=== PATIENT | female | born 1935 | race Caucasian/White ===

== ENCOUNTER → 2017-07-23 07:51 | Outpatient (CLI) | payer MEDICARE, OTHER, BC, SELFPAY ==
[2016-06-23 10:21] VITALS: BMI 39.4
== END ==
PROVIDERS: Family Provider Internal Medicine; PCP Internal Medicine; Visit Provider Internal Medicine Cardiovascular Disease
DX: I25.119 Atherosclerotic heart disease of native coronary artery with unspecified angina pectoris (principal); I47.2 Ventricular tachycardia; I25.2 Old myocardial infarction; I10 Essential (primary) hypertension; E78.5 Hyperlipidemia, unspecified; E11.9 Type 2 diabetes mellitus without complications; Z95.5 Presence of coronary angioplasty implant and graft
CPT/HCPCS: 93017; 93350; Q9957; A4216; C8928

== ENCOUNTER → 2017-08-29 07:25 | Outpatient (CLI) | payer MEDICARE, OTHER, BC, SELFPAY ==
[2016-06-23 10:21] VITALS: BMI 39.4
[2017-08-29 09:21] LABS: AST(SGOT) 13 U/L (15-37); Alanine Aminotransfer ALT/SGPT 18 U/L (13-56); Albumin, Serum 3.4 g/dL (3.2-5.0); Alkaline Phosphatase 65 U/L (45-117); Bilirubin, Direct 0.15 mg/dL (0.00-0.30); Cholesterol 99 mg/dL (200); High Density Lipoprotein 38 mg/dL; Protein, Total 7.4 g/dL (6.4-8.2); Triglycerides 173 mg/dL; Very Low Density Lipoprotein 35 mg/dL (5-40)
== END ==
PROVIDERS: Family Provider Internal Medicine; PCP Internal Medicine; Visit Provider Internal Medicine Cardiovascular Disease
DX: I25.10 Atherosclerotic heart disease of native coronary artery without angina pectoris (principal); E78.5 Hyperlipidemia, unspecified; E11.9 Type 2 diabetes mellitus without complications
CPT/HCPCS: 36415; 80061; 80076

== ENCOUNTER → 2018-07-25 | Outpatient (CLI) | payer MEDICARE, BC, SELFPAY ==
[2016-06-23 10:21] VITALS: BMI 39.4
[2018-07-08 13:33] VITALS: BMI 38.6
--- NOTE | 2018-07-25 09:46 | ECHOD_ITS ---
Reason For Study: DYSPNEA/SOB Procedure This was a 2D Doppler, Color Flow transthoracic echocardiogram. The study was technically difficult. Due to body habitus. Exam performed in department. Left Ventricle Mild concentric left ventricular hypertrophy. The estimated ejection fraction is 75 %. Stage 1 diastolic dysfunction. No regional wall motion abnormalities noted. Right Ventricle Mildly dilated right ventricle. Normal systolic function. Atria The left atrium is mildly enlarged. Normal right atrium. Normal atrial septum. Mitral Valve Mild diffuse mitral valve thickening. Moderate mitral annular calcification extending into the posterior leaflet. Tricuspid Valve Normal tricuspid valve. Trivial tricuspid valve insufficiency. Right ventricular systolic pressure estimated to be 38 mmHg. Mild pulmonary hypertension. Aortic Valve Trisinus/trileaflet aortic valve. Mild diffuse aortic valve thickening. Trivial aortic valve insufficiency. Pulmonic Valve Normal pulmonic valve. Trivial pulmonic valve insufficiency. Great Vessels Normal aortic root. Normal arch. Normal inferior vena cava. Inferior vena cava collapse with sniff. Pericardium/Pleural No pericardial effusion. MMode/2D Measurements & Calculations LVIDd: 4.3 cm IVSd: 1.3 cm LVOT diam: 2.0 cm LVIDs: 2.4 cm LVPWd: 1.2 cm LVOT area: 3.2 cm2 RVDd: 3.6 cm FS: 45.2 % Ao root diam: 3.0 cm LAV(MOD-bp): 56.4 ml LA A4 area: 20.7 cm2 LAV(MOD-bp) Indexed: 31.2 ml/m2 LAV(MOD-sp2): 50.3 ml LAV(MOD-sp4): 60.1 ml LA dimension(2D): 4.0 cm RA A4 area: 16.0 cm2 Time Measurements MV dec time: 0.25 sec Doppler Measurements & Calculations MV E max parth: 119.8 cm/sec Lat Peak E' Parth: 3.4 cm/sec Med Peak E' Parth: 3.8 cm/sec MV A max parth: 125.9 cm/sec E/E' lat: 35.0 E/E' med: 31.5 MV E/A: 0.95 Ao V2 max: 193.0 cm/sec AI max parth: 395.4 cm/sec LV V1 max: 103.8 cm/sec Ao max P.9 mmHg AI max P.7 mmHg LV V1 max P.3 mmHg Ao V2 mean: 120.7 cm/sec AI dec slope: 290.0 cm/sec2 LV V1 mean P.0 mmHg Ao mean P.7 mmHg AI P1/2t: 399.3 msec LV V1 mean: 67.6 cm/sec Ao V2 VTI: 42.8 cm LV V1 VTI: 22.9 cm NATHANIEL(I,D): 1.7 cm2 NATHANIEL(V,D): 1.7 cm2 SV(LVOT): 73.4 ml PA V2 max: 118.5 cm/sec TR max parth: 267.5 cm/sec TR max P.1 mmHg Interpretation Summary Mild concentric left ventricular hypertrophy. The estimated ejection fraction is 75 %. Stage 1 diastolic dysfunction. The left atrium is mildly enlarged. Trivial tricuspid valve insufficiency. Right ventricular systolic pressure estimated to be 38 mmHg. Mild pulmonary hypertension. Trivial aortic valve insufficiency. Compared to echo report dated 06/23/2016, no appreciable changes noted. Ordering Physician: Oscar Araujo Referring Physician: Eitan Price Performed By: Lolita Pimentel, BARTOLOME, RVT
== END | disposition home or self-care (01) ==
LOC: CVS 09:45
PROVIDERS: Family Provider Internal Medicine; PCP Internal Medicine; Referring Provider Internal Medicine Cardiovascular Disease; Visit Provider Internal Medicine Cardiovascular Disease
DX: I25.10 Atherosclerotic heart disease of native coronary artery without angina pectoris (principal)
CPT/HCPCS: 93306

== ENCOUNTER → 2018-07-31 09:02 | Outpatient (CLI) | payer MEDICARE, BC, SELFPAY ==
[2016-06-23 10:21] VITALS: BMI 39.4
[2018-07-08 13:33] VITALS: BMI 38.6
--- NOTE | 2018-07-31 09:03 | STEWCON_ITS ---
Reason For Study: DYSPNEA/SOB Stress Results Protocol: Stress Echocardiogram Maximum Predicted HR: 138 bpm Target HR: 117 bpm % Maximum Predicted HR: 89 % DurationHeart Rate Stage (mm:ss) (bpm) BP Comment BASELINE 58 160/74DILUTED DEFINITY 2 CC USED CHRISTOS PROTOCOL- STAGE 1 3:00 100 172/90SOB, NO CP CHRISTOS PROTOCOL- STAGE 2 0:54 123 / EXTREME SOB, NO CP RECOVERY 62 144/80SOB RESOLVED Stress Duration: 3:54 mm:ss Maximum Stress HR: 123 bpm Baseline Echocardiogram Findings The estimated ejection fraction is 65 %. Stress Echo Wall motion Data Resting WM Intermediate WM Stress WM Resting Wall Motion Wall Motion Stress No regional wall motion No regional wall motion abnormalities noted. abnormalities noted. EKG Data The baseline ECG displays normal sinus rhythm. The patient exercised according to the regular Christos protocol for a total duration of 3:54. The maximum heart rate attained was 123 beats per minute. This was 89% of maximum predicted heart rate. The patient exercised into stage 2 of the Christos protocol. During stress, there were no ST or T wave changes noted to suggest ischemia. No clinical angina was noted. Doppler Measurements & Calculations TR max edmundo: 303.4 cm/sec TR max P.0 mmHg Interpretation Summary The estimated ejection fraction is 65 %. Normal, adequate, treadmill echocardiogram. Negative for ischemia by EKG and echocardiographic criteria. No anginal symptoms noted. Rare PVC noted. Appropriate blood pressure response to exercise. Below average exercise capacity for age. Final LVEF is 75%. Decreased sensitivity due to poor echo windows requiring Definity agent. No complications. The study was technically difficult. Contrast injection was performed. Ordering Physician: Oscar Araujo MD Referring Physician: Oscar Araujo Performed By: Lolita Pimentel, RDCS, RVT
== END ==
PROVIDERS: Family Provider Internal Medicine; PCP Internal Medicine; Referring Provider Internal Medicine Cardiovascular Disease; Visit Provider Internal Medicine Cardiovascular Disease
DX: R06.02 Shortness of breath (principal); I25.119 Atherosclerotic heart disease of native coronary artery with unspecified angina pectoris; I47.2 Ventricular tachycardia; I10 Essential (primary) hypertension; Z95.5 Presence of coronary angioplasty implant and graft
CPT/HCPCS: 93017; 93350; Q9957; A4216; C8928

== ENCOUNTER → 2018-12-03 10:09 | Outpatient (CLI) | payer MEDICARE, BC, SELFPAY ==
[2016-06-23 10:21] VITALS: BMI 39.4
[2018-11-14 09:26] VITALS: BMI 38.7
[2018-12-03 11:15] LABS: AST(SGOT) 13 U/L (15-37); Alanine Aminotransfer ALT/SGPT 20 U/L (13-56); Albumin, Serum 3.2 g/dL (3.2-5.0); Alkaline Phosphatase 69 U/L (45-117); Bilirubin, Direct 0.15 mg/dL (0.00-0.30); Cholesterol 100 mg/dL (200); Globulin 3.9 g/dL (2.2-4.2); High Density Lipoprotein 37 mg/dL; Protein, Total 7.1 g/dL (6.4-8.2); Triglycerides 165 mg/dL; Very Low Density Lipoprotein 33 mg/dL (5-40)
== END ==
PROVIDERS: Family Provider Internal Medicine; PCP Internal Medicine; Referring Provider Internal Medicine Cardiovascular Disease; Visit Provider Internal Medicine Cardiovascular Disease
DX: E78.00 Pure hypercholesterolemia, unspecified (principal)
CPT/HCPCS: 36415; 80061; 80076

== ENCOUNTER → 2019-08-29 10:16 | Outpatient (CLI) | payer MEDICARE, BC, SELFPAY ==
[2016-06-23 10:21] VITALS: BMI 39.4
[2018-11-14 09:26] VITALS: BMI 38.7
--- NOTE | 2019-08-29 10:16 | ECHOD_ITS ---
Reason For Study: PHTN Procedure This was a 2D Doppler, Color Flow transthoracic echocardiogram. Exam performed in department. Left Ventricle Normal size and thickness. The estimated ejection fraction is 65 %. Stage 1 diastolic dysfunction. No regional wall motion abnormalities noted. Right Ventricle Normal size and thickness. Normal systolic function. Atria The left atrium is severely enlarged. Normal right atrium. Normal atrial septum. Mitral Valve Mild diffuse mitral valve thickening. Severe mitral annular calcification extending into the posterior leaflet. Mild (1+) eccentric mitral valve insufficiency. Tricuspid Valve Normal tricuspid valve. Mild (1+) tricuspid valve insufficiency. Right ventricular systolic pressure estimated to be 33 mmHg. Aortic Valve Trisinus/trileaflet aortic valve. Mild focal aortic valve thickening. Mild aortic stenosis. Trivial aortic valve insufficiency. Pulmonic Valve Normal pulmonic valve. Mild (1+) pulmonic valve insufficiency. Great Vessels Normal aortic root. Normal arch. Normal inferior vena cava. Inferior vena cava collapse with sniff. Pericardium/Pleural No pericardial effusion. MMode/2D Measurements & Calculations LVIDd: 4.1 cm IVSd: 1.3 cm LVOT diam: 2.0 cm LVIDs: 2.0 cm LVPWd: 1.2 cm LVOT area: 3.1 cm2 RVDd: 3.0 cm FS: 51.8 % Ao root diam: 3.1 cm LAV(MOD-bp): 81.5 ml LA A4 area: 26.9 cm2 LAV(MOD-bp) Indexed: 45.0 ml/m2 LAV(MOD-sp2): 67.3 ml LAV(MOD-sp4): 94.9 ml LA dimension(2D): 4.1 cm RA A4 area: 13.2 cm2 Doppler Measurements & Calculations MV E max parth: 103.6 cm/sec Lat Peak E' Parth: 4.5 cm/sec Med Peak E' Parth: 3.4 cm/sec MV A max parth: 126.3 cm/sec E/E' lat: 22.9 E/E' med: 30.2 MV E/A: 0.82 Ao V2 max: 194.0 cm/sec AI max parth: 462.0 cm/sec LV V1 max: 120.2 cm/sec Ao max P.1 mmHg AI max P.4 mmHg LV V1 max P.8 mmHg Ao V2 mean: 129.6 cm/sec AI dec slope: 263.8 cm/sec2 LV V1 mean P.9 mmHg Ao mean P.6 mmHg AI P1/2t: 513.0 msec LV V1 mean: 80.8 cm/sec Ao V2 VTI: 42.7 cm LV V1 VTI: 29.4 cm NATHANIEL(I,D): 2.1 cm2 NATHANIEL(V,D): 1.9 cm2 SV(LVOT): 89.7 ml PA V2 max: 113.5 cm/sec TR max parth: 254.3 cm/sec TR max P.0 mmHg Interpretation Summary The estimated ejection fraction is 65 %. Stage 1 diastolic dysfunction. The left atrium is severely enlarged. Mild (1+) eccentric mitral valve insufficiency. Mild (1+) tricuspid valve insufficiency. Right ventricular systolic pressure estimated to be 33 mmHg. Mild aortic stenosis. Trivial aortic valve insufficiency. Compared to echo report dated 07/25/2018, LV function has remained the same, RVSP has improved from 38 to 33 mmHg. Ordering Physician: Oscar Araujo Referring Physician: Eitan Price Performed By: Alaina Okeefe RDCS
== END ==
PROVIDERS: PCP Internal Medicine; Referring Provider Internal Medicine Cardiovascular Disease; Visit Provider Internal Medicine Cardiovascular Disease
DX: I27.20 Pulmonary hypertension, unspecified (principal); I25.10 Atherosclerotic heart disease of native coronary artery without angina pectoris
CPT/HCPCS: 93306

== ENCOUNTER → 2019-09-05 09:09 | Outpatient (CLI) | payer MEDICARE, BC, SELFPAY ==
[2016-06-23 10:21] VITALS: BMI 39.4
[2018-11-14 09:26] VITALS: BMI 38.7
--- NOTE | 2019-09-05 09:09 | STEWCON_ITS ---
Reason For Study: CAD/ASHD Stress Results Protocol: Stress Echocardiogram Maximum Predicted HR: 137 bpm Target HR: 116 bpm % Maximum Predicted HR: 97 % Heart Stage Duration Rate BP Comment (mm:ss) (bpm) 3 CC DILUTED DEFINITY USED, PT IN AFIB- DR ARAUJO BASELINE 75 134/80AWARE JEANNIE PROTOCOL- STAGE 1 3:00 133 140/80SEVERE DYSPNEA, FATIGUE, AFIB RECOVERY 82 124/80AFIB Stress Duration: 3:00 mm:ss Maximum Stress HR: 133 bpm Baseline Echocardiogram Findings The estimated ejection fraction is 65 %. Stress Echo Wall motion Data Resting WM Intermediate WM Stress WM Resting Wall Motion Wall Motion Stress No regional wall motion No regional wall motion abnormalities noted. abnormalities noted. EKG Data Atrial fibrillation with controlled ventricular response. The patient exercised according to the regular Jeannie protocol for a total duration of 3:13. The maximum heart rate attained was 133 beats per minute. This was 97% of maximum predicted heart rate. The patient exercised into stage 2 of the Jeannie protocol. During stress, there were no ST or T wave changes noted to suggest ischemia. No clinical angina was noted. Interpretation Summary The estimated ejection fraction is 65 %. Normal, adequate, treadmill echocardiogram. Negative for ischemia by EKG and echocardiographic anterior. No anginal symptoms noted. Baseline atrial fibrillation but no other arrhythmias noted. Appropriate blood pressure response to exercise. Test terminated due to the attainment of target heart rate and severe dyspnea. Below average exercise capacity for age. Patient tolerated procedure well. Poor echo windows requiring Definity agent making interpretation somewhat problematic. No complications. The study was technically difficult. Contrast injection was performed. Ordering Physician: Oscar Araujo Referring Physician: Oscar Araujo Performed By: Negin Cuevas RDCS
== END ==
PROVIDERS: PCP Internal Medicine; Referring Provider Internal Medicine Cardiovascular Disease; Visit Provider Internal Medicine Cardiovascular Disease
DX: I25.119 Atherosclerotic heart disease of native coronary artery with unspecified angina pectoris (principal); I47.2 Ventricular tachycardia; I25.2 Old myocardial infarction; E11.9 Type 2 diabetes mellitus without complications; Z95.5 Presence of coronary angioplasty implant and graft
CPT/HCPCS: 93017; 93350; Q9957; A4216; C8928

== ENCOUNTER 2019-09-19 06:39 | Day surgery (SDC) | payer MEDICARE, BC, SELFPAY ==
[2016-06-23 10:21] VITALS: BMI 39.4
[2018-11-14 09:26] VITALS: BMI 38.7
--- NOTE | 2019-09-09 08:54 | RAD_ITS ---
STUDY: X-RAY CHEST REASON FOR EXAM: Female, 83 years old. Abnormal stress test. Coronary artery disease. TECHNIQUE: Frontal and lateral views of the chest. COMPARISON: 06/22/2016. FINDINGS: The lungs are clear and expanded. There is no demonstrated pleural abnormality. Normal size heart. Normal mediastinum and rachel. Normal visualized pulmonary arteries. There is atherosclerotic calcification of the aortic arch with tortuosity. Small to moderate hiatal hernia. Normal visualized thoracic spine. Normal visualized ribs, clavicles, and shoulders. There is no demonstrated abnormality of the visualized soft tissue structures of the upper abdomen. RAD/Chest PA and Lateral IMPRESSION: No definite acute or significant abnormality seen. Electronically Signed: Fabian Adkins MD at 21:26 EDT , Service support ,
[2019-09-09 09:06] LABS: Hematocrit 39.2 % (37-47); Hemoglobin 12.5 g/dL (12.0-15.0); Mean Corp Hgb Conc 31.9 g/dL (32-36); Mean Corpuscular Hgb 27.7 pg (27.0-32.0); Mean Corpuscular Volume 86.7 fL (81-99); Mean Platelet Vol. 11.7 fl (6.2-12.0); Platelet Count 178 K/mm3 (150-450); RBC Distribution Width CV 15.4 % (11.6-14.6); RBC Distribution Width SD 48.1 fl (35.1-43.9); Red Blood Count 4.52 M/mm3 (4.2-5.4); White Blood Count 7.4 K/mm3 (4.4-11.0)
[2019-09-09 09:13] LABS: International Normalized Ratio 1.1; Prothrombin Time (Protime)PT. 13.4 SECONDS (11.7-14.9)
[2019-09-09 09:14] LABS: Partial Thromboplast Time 32.5 Seconds (24.1-36.2)
[2019-09-09 09:29] LABS: Anion Gap 5 (5-15); BUN 15 mg/dL (7-18); BUN/Creat Ratio 11.1 RATIO (10-20); Calcium,Total 8.9 mg/dL (8.5-10.1); Chloride 106 mmol/L (98-107); Creatinine, Serum 1.35 mg/dL (0.55-1.02); EST Glomerular Filtration Rate 40 mL/min (>60); Est Glom Filt Rate - Afr Amer 48 mL/min (>60); Glucose 122 mg/dL (74-106); Potassium 4.3 mmol/L (3.5-5.1); Sodium Level 140 mmol/L (136-145)
--- NOTE | 2019-09-11 04:32 | HP_ITS ---
HPI HPI History of Present Illness Surgical H&P: Yes Details: This is an 83-year-old female that presents here today for an updated history and physical for an abnormal stress test she is scheduled to have a heart catheterization done next week. This is scheduled for 09/19/2019. She has a history of coronary artery disease with stenting to her LAD in 2017. She also has a history of hypertension, hyperlipidemia and diabetes. After her heart catheterization in 2017 she did develop a hematoma and did require 1 unit of blood. She did not require any debridement. At her office visit earlier this month she commented on increased tiredness. She underwent a stress test and echocardiogram. Patient was noted to have significant shortness of breath with walking on the treadmill. Echocardiogram images did not demonstrate any ischemia however patient was noted to have a newly noted atrial fibrillation. She is scheduled to undergo a right and left heart catheterization next week. Pt sts that she has noted SOB with exertion and CP that radiates to her back/shoulder. She does notes that this has been going on for a few months. Prior to her stress test she thought that this was related to arthritis. This is different to what she had prior to her previous stent. She is not SOB at rest. She does not have any palpitations. She does have positional dizziness. This is with anytime that she bends over. She does not have any edema. Intake Vital Signs 09/11/19 Height 4 ft 11 in 09/11/19 Weight: 193 lb 09/11/19 BP 151/75 H 09/11/19 Blood Pressure Location Rt brachial 09/11/19 Position Sitting 09/11/19 Respiration 18 09/11/19 Pulse 54 L 09/11/19 Pulse Source Monitor 09/11/19 Pulse Oximetry (%) 96 Intake Visit Reasons: Update H & P/LM [employer] Required: No Is patient in pain?: No Allergies morphine Allergy (Mild, Verified 11/14/18 09:34) Hives Medications Aspirin [Aspirin, Baby] 81 mg PO QHS 06/22/16 [History Confirmed 09/11/19] Atorvastatin Calcium [Lipitor] 80 mg PO QHS 06/22/16 [History Confirmed 09/11/19] Cyanocobalamin (Vitamin B-12) [Vitamin B-12] 1,000 mcg PO DAILY 06/22/16 [History Confirmed 09/11/19] Metformin HCl 500 mg PO BID 06/22/16 [History Confirmed 09/11/19] Montelukast [Singulair] 10 mg PO QHS 06/22/16 [History Confirmed 09/11/19] Amlodipine [Norvasc] 5 mg PO DAILY #30 tab 07/06/16 [Rx Confirmed 09/11/19] Clopidogrel Bisulfate [Plavix] 75 mg PO DAILY #30 tab 07/06/16 [Rx Confirmed 09/11/19] carvedilol 25 mg tablet 25 mg PO BID 07/05/17 [History Confirmed 09/11/19] losartan 25 mg tablet 25 mg PO QDAY #90 tab 12/18/17 [Rx Confirmed 09/11/19] citalopram 40 mg tablet 20 mg PO DAILY 07/08/18 [History Confirmed 09/11/19] omega-3 fatty acids 1,000 mg capsule 1,000 mg PO TID cap 07/08/18 [History Confirmed 09/11/19] furosemide 40 mg tablet 40 mg PO DAILY 11/14/18 [History Confirmed 09/11/19] cefdinir 300 mg capsule 300 mg PO BID 09/11/19 [History Confirmed 09/11/19] [facility] Medical History New onset atrial fibrillation (Acute) Dyspnea on exertion (Acute) Atherosclerotic heart disease hoh coronary artery w/angina pectoris (Acute) Type 2 diabetes mellitus without complications (Chronic) Atherosclerotic heart disease of hoh coronary artery without angina pectoris (Chronic) Hypertension (Chronic) Nonsustained ventricular tachycardia (Chronic) Non-STEMI (non-ST elevated myocardial infarction) (Resolved) Hyperlipemia (Chronic) Asthma (Chronic) Depression (Chronic) GERD (gastroesophageal reflux disease) (Chronic) Hematoma of groin (Chronic) Hiatal hernia (Chronic) History of colon cancer (Chronic) Obesity (Chronic) Surgical History History of coronary artery stent placement (Chronic 06/23/16) History of (Chronic) History of cholecystectomy (Chronic ~2011) History of colectomy (Chronic ~04/2001) Family History Mother CAD (coronary artery disease) Father CAD (coronary artery disease) Brother CAD (coronary artery disease) Sister CAD (coronary artery disease) Social History (Updated 09/11/19 @ 16:32 by ROBBIE Ernst) Smoking Status: Never smoker alcohol intake: never substance use type: does not use caffeine: Yes Type: coffee Number of servings: 4 ROS Const Const: Positive for fatigue; negative for weakness, fever(s) or headache(s) Eyes Eyes: Negative for blind spots, loss of peripheral vision or transient loss of vision ENT ENT: Positive for dizziness; negative for headache(s), tinnitus or Nosebleed/epistaxis Cardio Chest Pain: Yes Palpitations: No Edema: None Muscle aches with walking: None Resp Respiratory: Positive for SOB with activity; negative for SOB at rest, SOB orthopnea\SOB lying down or Cough GI GI: Negative nausea, vomiting, heartburn or vomiting blood/hematemesis : Negative for hematuria Musc Musc: Negative for muscle aches/ myalgia Neuro Neuro: Positive for dizziness; negative for lightheadedness, near syncope, syncope, orthostatic symptoms, headache(s) or weakness Felice Hematologic/Lymphatic: Negative for easy bleeding Endo Endo: Positive for fatigue Cardiology Exam Const Appearance: cooperative, healthy appearing and no acute distress Nutritional Appearance: well nourished Orientation: alert, oriented x3 and oriented to person Head Head: normal to inspection, normocephalic and atraumatic Nose: external nose normal Face and Sinus: face symmetric Mouth: oral mucosae normal Eyes General: appearance normal, both eyes and all related structures Eyelids: eyelids normal Conjunctivae: conjunctivae normal Pupils: PERRL and normal by confrontation EOM: EOM intact bilaterally Neck Neck: normal visual inspection and full ROM Carotids: normal carotid upstroke Chest Chest inspection: normal inspection of the chest Auscultation: Bilateral: Clear to Auscultation Cardio Palpation: normal PMI Rate: regular rate Rhythm: regular rhythm Heart sounds: S1 normal, S2 normal and murmur Murmur: Grade 1/6, soft and mid systolic GI GI: normal to inspection, no hepatosplenomegaly and bowel sounds present Neuro General: alert, awake, oriented x3, CN's II-XI intact bilaterally and moves all extremities Skin Skin: no rashes or lesions noted Extremities Pulses: Normal: Right Femoral Pulse, Left Femoral Pulse, Right Dorsalis Pedis Pulse, Left Dorsalis Pedis Pulse, Right Posterior Tibial Pulse, Left Posterior Tibial Pulse, Right Radial Pulse, Left Radial Pulse Lower Extremity Edema: None: Bilateral Psych Psychological: normal affect Assessment & Plan 1. 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 Concerned that this could be an anginal equivalent, she did have a stress test that did not show any ischemia however it is again noted that she had significant dyspnea. We will proceed with a left and right heart catheterization. 2. New onset atrial fibrillation I48.91 Plan Patient does have newly noted atrial fibrillation. Currently she is not anticoagulated. Will need to rediscuss after her heart catheterization. If she is still in atrial fibrillation will consider cardioversion after she has been anticoagulated for 30 days. It is noted that patient does have severe left atrial enlargement. 3. Essential hypertension I10 4. Pure hypercholesterolemia E78.00 Plan Patient will continue with high intensity statin. Plan Detail Follow Up 09/11/19 (with me on 10/02 at 0900) Coding Level of Care Code Off vis,est,level 4 Diagnoses Atherosclerotic heart disease hoh coronary artery w/angina pectoris I25.119 New onset atrial fibrillation I48.91 Essential hypertension I10 ??Hypertension type: essential hypertension Pure hypercholesterolemia E78.00 ??Hyperlipidemia type: pure hypercholesterolemia Coding Level of Care Code Off vis,est,level 4 Diagnoses Atherosclerotic heart disease hoh coronary artery w/angina pectoris I25.119 New onset atrial fibrillation I48.91 Essential hypertension I10 ??Hypertension type: essential hypertension Pure hypercholesterolemia E78.00 ??Hyperlipidemia type: pure hypercholesterolemia Supplemental Info Supplemental Information Stress echo 08/2019: EKG Data Atrial fibrillation with controlled ventricular response. The patient exercised according to the regular Christos protocol for a total duration of 3:13. The maximum heart rate attained was 133 beats per minute. This was 97% of maximum predicted heart rate. The patient exercised into stage 2 of the Christos protocol. During stress, there were no ST or T wave changes noted to suggest ischemia. No clinical angina was noted. Interpretation Summary The estimated ejection fraction is 65 %. Normal, adequate, treadmill echocardiogram. Negative for ischemia by EKG and echocardiographic anterior. No anginal symptoms noted. Baseline atrial fibrillation but no other arrhythmias noted. Appropriate blood pressure response to exercise. Test terminated due to the attainment of target heart rate and severe dyspnea. Below average exercise capacity for age. Patient tolerated procedure well. Poor echo windows requiring Definity agent making interpretation somewhat problematic. No complications. The study was technically difficult. Contrast injection was performed. Echocardiogram 2020: The estimated ejection fraction is 65 %. Stage 1 diastolic dysfunction. The left atrium is severely enlarged. Mild (1+) eccentric mitral valve insufficiency. Mild (1+) tricuspid valve insufficiency. Right ventricular systolic pressure estimated to be 33 mmHg. Mild aortic stenosis. Trivial aortic valve insufficiency. Compared to echo report dated 07/25/2018, LV function has remained the same, RVSP has improved from 38 to 33 mmHg. Labs LDL Cholesterol 30 mg/dL (0-130) 12/03/18 HDL Cholesterol 37 mg/dL (40-) L 12/03/18 Triglycerides 165 mg/dL (-199) 12/03/18 VLDL Cholesterol 33 mg/dL (5-40) 12/03/18 Diagnostics Echocardiogram 08/29/19 Stress Echocardiogram 09/05/19 Chest X-Ray 09/09/19 09/11/19 1882 <Electronically signed by Negin Erickson> Date _ Negin AVALOS
[2019-09-11 14:49] VITALS: BMI 38.9
[2019-09-18 08:23] VITALS: BMI 38.9
--- NOTE | 2019-09-19 08:36 | PCM.HP.BLA ---
Problem List (1) Atherosclerotic heart disease [place] coronary artery w/angina pectoris Status: Acute (2) Dyspnea on exertion Status: Acute (3) New onset atrial fibrillation Status: Acute (4) Atherosclerotic heart disease of [place] coronary artery without angina pectoris Status: Chronic Qualifiers: Comment: PCI/SHEILA to LAD w/ 3.0 x 16 mm Synergy 06/23/2016 (5) Hyperlipemia Status: Chronic Qualifiers: (6) Hypertension Status: Chronic Qualifiers: (7) Nonsustained ventricular tachycardia Status: Chronic History and Physical Date of Admission: 09/19/19 [facility] Medical Records Department [address] [place] [address] History and Physical 09/11/19 0432 MR#: [id number] Acct: [id number] Name: AISHWARYA DAVIS Rep #: [id number] : 1935 83 From: Negin AVALOS PCP: Dr. Eitan Price MD Status: PRE [facility] [place] Location: [facility] HPI HPI History of Present Illness Surgical H&P: Yes Details: This is an 83-year-old female that presents here today for an updated history and physical for an abnormal stress test she is scheduled to have a heart catheterization done next week. This is scheduled for 09/19/2019. She has a history of coronary artery disease with stenting to her LAD in 2016. She also has a history of hypertension, hyperlipidemia and diabetes. After her heart catheterization in 2016 she did develop a hematoma and did require 1 unit of blood. She did not require any debridement. At her office visit earlier this month she commented on increased tiredness. She underwent a stress test and echocardiogram. Patient was noted to have significant shortness of breath with walking on the treadmill. Echocardiogram images did not demonstrate any ischemia however patient was noted to have a newly noted atrial fibrillation. She is scheduled to undergo a right and left heart catheterization next week. Pt sts that she has noted SOB with exertion and CP that radiates to her back/shoulder. She does notes that this has been going on for a few months. Prior to her stress test she thought that this was related to arthritis. This is different to what she had prior to her previous stent. She is not SOB at rest. She does not have any palpitations. She does have positional dizziness. This is with anytime that she bends over. She does not have any edema. 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 Required: No Is patient in pain?: No Allergies morphine Allergy (Mild, Verified 11/14/18 09:34) Hives Medications Aspirin [Aspirin, Baby] 81 mg PO QHS 06/22/16 [History Confirmed 09/11/19] Atorvastatin Calcium [Lipitor] 80 mg PO QHS 06/22/16 [History Confirmed 09/11/19] Cyanocobalamin (Vitamin B-12) [Vitamin B-12] 1,000 mcg PO DAILY 06/22/16 [History Confirmed 09/11/19] Metformin HCl 500 mg PO BID 06/22/16 [History Confirmed 09/11/19] Montelukast [Singulair] 10 mg PO QHS 06/22/16 [History Confirmed 09/11/19] Amlodipine [Norvasc] 5 mg PO DAILY #30 tab 07/06/16 [Rx Confirmed 09/11/19] Clopidogrel Bisulfate [Plavix] 75 mg PO DAILY #30 tab 07/06/16 [Rx Confirmed 09/11/19] carvedilol 25 mg tablet 25 mg PO BID 07/05/17 [History Confirmed 09/11/19] losartan 25 mg tablet 25 mg PO QDAY #90 tab 12/18/17 [Rx Confirmed 09/11/19] citalopram 40 mg tablet 20 mg PO DAILY 07/08/18 [History Confirmed 09/11/19] omega-3 fatty acids 1,000 mg capsule 1,000 mg PO TID cap 07/08/18 [History Confirmed 09/11/19] furosemide 40 mg tablet 40 mg PO DAILY 11/14/18 [History Confirmed 09/11/19] cefdinir 300 mg capsule 300 mg PO BID 09/11/19 [History Confirmed 09/11/19] [facility] Medical History New onset atrial fibrillation (Acute) Dyspnea on exertion (Acute) Atherosclerotic heart disease [place] coronary artery w/angina pectoris (Acute) Type 2 diabetes mellitus without complications (Chronic) Atherosclerotic heart disease of [place] coronary artery without angina pectoris (Chronic) Hypertension (Chronic) Nonsustained ventricular tachycardia (Chronic) Non-STEMI (non-ST elevated myocardial infarction) (Resolved) Hyperlipemia (Chronic) Asthma (Chronic) Depression (Chronic) GERD (gastroesophageal reflux disease) (Chronic) Hematoma of groin (Chronic) Hiatal hernia (Chronic) History of colon cancer (Chronic) Obesity (Chronic) Surgical History History of coronary artery stent placement (Chronic 06/23/16) History of (Chronic) History of cholecystectomy (Chronic ~2011) History of colectomy (Chronic ~04/2001) Family History Mother CAD (coronary artery disease) Father CAD (coronary artery disease) Brother CAD (coronary artery disease) Sister CAD (coronary artery disease) Social History (Updated 09/11/19 @ 16:32 by ROBBIE Ernst) Smoking Status: Never smoker alcohol intake: never substance use type: does not use caffeine: Yes Type: coffee Number of servings: 4 ROS Const Const: Positive for fatigue; negative for weakness, fever(s) or headache(s) Eyes Eyes: Negative for blind spots, loss of peripheral vision or transient loss of vision ENT ENT: Positive for dizziness; negative for headache(s), tinnitus or Nosebleed/epistaxis Cardio Chest Pain: Yes Palpitations: No Edema: None Muscle aches with walking: None Resp Respiratory: Positive for SOB with activity; negative for SOB at rest, SOB orthopnea\SOB lying down or Cough GI GI: Negative nausea, vomiting, heartburn or vomiting blood/hematemesis : Negative for hematuria Musc Musc: Negative for muscle aches/ myalgia Neuro Neuro: Positive for dizziness; negative for lightheadedness, near syncope, syncope, orthostatic symptoms, headache(s) or weakness Felice Hematologic/Lymphatic: Negative for easy bleeding Endo Endo: Positive for fatigue Cardiology Exam Const Appearance: cooperative, healthy appearing and no acute distress Nutritional Appearance: well nourished Orientation: alert, oriented x3 and oriented to person Head Head: normal to inspection, normocephalic and atraumatic Nose: external nose normal Face and Sinus: face symmetric Mouth: oral mucosae normal Eyes General: appearance normal, both eyes and all related structures Eyelids: eyelids normal Conjunctivae: conjunctivae normal Pupils: PERRL and normal by confrontation EOM: EOM intact bilaterally Neck Neck: normal visual inspection and full ROM Carotids: normal carotid upstroke Chest Chest inspection: normal inspection of the chest Auscultation: Bilateral: Clear to Auscultation Cardio Palpation: normal PMI Rate: regular rate Rhythm: regular rhythm Heart sounds: S1 normal, S2 normal and murmur Murmur: Grade 1/6, soft and mid systolic GI GI: normal to inspection, no hepatosplenomegaly and bowel sounds present Neuro General: alert, awake, oriented x3, CN's II-XI intact bilaterally and moves all extremities Skin Skin: no rashes or lesions noted Extremities Pulses: Normal: Right Femoral Pulse, Left Femoral Pulse, Right Dorsalis Pedis Pulse, Left Dorsalis Pedis Pulse, Right Posterior Tibial Pulse, Left Posterior Tibial Pulse, Right Radial Pulse, Left Radial Pulse Lower Extremity Edema: None: Bilateral Psych Psychological: normal affect Assessment & Plan 1. Atherosclerotic heart disease [place] coronary artery w/angina pectoris I25.119 Plan Patient does have significant shortness of breath with exertion. Concerned that this could be an anginal equivalent, she did have a stress test that did not show any ischemia however it is again noted that she had significant dyspnea. We will proceed with a left and right heart catheterization. 2. New onset atrial fibrillation I48.91 Plan Patient does have newly noted atrial fibrillation. Currently she is not anticoagulated. Will need to rediscuss after her heart catheterization. If she is still in atrial fibrillation will consider cardioversion after she has been anticoagulated for 30 days. It is noted that patient does have severe left atrial enlargement. 3. Essential hypertension I10 4. Pure hypercholesterolemia E78.00 Plan Patient will continue with high intensity statin. Plan Detail Follow Up 09/11/19 (with me on 10/02 at 0900) Coding Level of Care Code Off vis,est,level 4 Diagnoses Atherosclerotic heart disease [place] coronary artery w/angina pectoris I25.119 New onset atrial fibrillation I48.91 Essential hypertension I10 ??Hypertension type: essential hypertension Pure hypercholesterolemia E78.00 ??Hyperlipidemia type: pure hypercholesterolemia Coding Level of Care Code Off vis,est,level 4 Diagnoses Atherosclerotic heart disease [place] coronary artery w/angina pectoris I25.119 New onset atrial fibrillation I48.91 Essential hypertension I10 ??Hypertension type: essential hypertension Pure hypercholesterolemia E78.00 ??Hyperlipidemia type: pure hypercholesterolemia Supplemental Info Supplemental Information Stress echo 08/2019: EKG Data Atrial fibrillation with controlled ventricular response. The patient exercised according to the regular Christos protocol for a total duration of 3:13. The maximum heart rate attained was 133 beats per minute. This was 97% of maximum predicted heart rate. The patient exercised into stage 2 of the Christos protocol. During stress, there were no ST or T wave changes noted to suggest ischemia. No clinical angina was noted. Interpretation Summary The estimated ejection fraction is 65 %. Normal, adequate, treadmill echocardiogram. Negative for ischemia by EKG and echocardiographic anterior. No anginal symptoms noted. Baseline atrial fibrillation but no other arrhythmias noted. Appropriate blood pressure response to exercise. Test terminated due to the attainment of target heart rate and severe dyspnea. Below average exercise capacity for age. Patient tolerated procedure well. Poor echo windows requiring Definity agent making interpretation somewhat problematic. No complications. The study was technically difficult. Contrast injection was performed. Echocardiogram 2019: The estimated ejection fraction is 65 %. Stage 1 diastolic dysfunction. The left atrium is severely enlarged. Mild (1+) eccentric mitral valve insufficiency. Mild (1+) tricuspid valve insufficiency. Right ventricular systolic pressure estimated to be 33 mmHg. Mild aortic stenosis. Trivial aortic valve insufficiency. Compared to echo report dated 07/25/2018, LV function has remained the same, RVSP has improved from 38 to 33 mmHg. Labs LDL Cholesterol 30 mg/dL (0-130) 12/03/18 HDL Cholesterol 37 mg/dL (40-) L 12/03/18 Triglycerides 165 mg/dL (-199) 12/03/18 VLDL Cholesterol 33 mg/dL (5-40) 12/03/18 Diagnostics Echocardiogram 08/29/19 Stress Echocardiogram 09/05/19 Chest X-Ray 09/09/19 09/11/19 1632 <Electronically signed by Negin AVALOS> Date Negin AVALOS 09/15/19 1501 <Electronically signed by Negin AVALOS> Date: Time: Negin AVALOS CC: ROBBIE Anguiano; Dr. Eitan Price MD ~ Date Dictated: 09/11/19 0432 Date Transcribed: 09/15/19 1030 Mechanical Technician: TANJA Signed Dimensional cardiology addendum: Patient seen and examined on day of procedure, and the risk/benefits of the procedure were thoroughly explained to the patient including specific attention to lack of onsite surgical backup, the patient agreed to proceed. Left and right heart catheterization to follow. No interim changes noted.
[2019-09-19 09:05] LABS: Blood Gas Specimen Type VEN; VBG BASE EXCESS 2 mmol/L (-1.0-3.5); VBG Bicarbonate 27 mmol/L (22-26); VBG Oxygen Content 28 mmol/L (23-33); VBG PO2 34 mmHg (25-40); VBG SO2 65 % (50-70); VBG pCO2 44.4 mmHg (41-51); VBG pH 7.39 (7.32-7.42)
[2019-09-19 09:11] LABS: Blood Gas Specimen Type VEN; VBG BASE EXCESS -1 mmol/L (-1.0-3.5); VBG Bicarbonate 25 mmol/L (22-26); VBG Oxygen Content 26 mmol/L (23-33); VBG PO2 35 mmHg (25-40); VBG SO2 66 % (50-70); VBG pCO2 41.4 mmHg (41-51); VBG pH 7.38 (7.32-7.42)
[2019-09-19 09:20] LABS: Base Excess 1 mmol/L (-2 to +2); Bicarbonate 25.8 mmol/L (22-26); Blood Gas Specimen Type ART; PO2 63 mmHG (75-100); SO2 92 % (95-99); Total Carbon Dioxide 27 mmol/L; pH 7.39 (7.35-7.45)
--- NOTE | 2019-09-19 09:27 | CL.D_ITS ---
Patient Name: AISHWARYA DAVIS Study Date: 09/19/2019 Performing: Oscar Araujo MD Ht: 59.05 inches 150 cm : 1935 Wt: 194.01 lbs 88 kg Age: 83 Gender: female BSA: 1.82 PROCEDURE(S) PERFORMED [id number]-JGB/LHC/COR/LV CLINICAL PROFILE AND INDICATIONS Indications: New Onset Angina <= 2 months, Stable Known CAD, Cardiac Arrythmia, Cardiac Arrythmia Heart Failure: None Stress/Imaging Date: 09/05/2019Stress Echocardiogram: Negative Angina Classification Anginal Classification w/in 2 Weeks: CCS IV CAD Presentations: Unstable angina. Other: Dyspnea on exertion Comorbidities/Risk Factors: Hypertension Dyslipidemia Prior PCI Diabetes Mellitus: Diabetes Therapy: Oral CONCLUSIONS Normal LV size, wall motion,and systolic function Perserved Left Ventricular systolic function with normal EDP LVEF: by LV gram 75 % Normal Left Ventricular End Diastolic Pressure The patient has normal pulmonary hemodynamics. 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 Manual sheath removal. DESCRIPTION OF PROCEDURE The patient arrived to the procedure lab. The risks and benefits of the procedure as well as a full d escription of our services here and current unavailability of surgical backup were fully explained to the patient and/or their significant other prior to the catheterization. The Timeout was completed, verifying the correct patient and procedure. The patient's procedural site was prepped and draped in the usual fashion. Local anesthetic was given subcutaneously to right groin region with Lidocaine 2%. Local anesthetic was given subcutaneously to left groin region with Lidocaine 2%. Using a modified S eldinger technique, arterial access was obtained via the left radial artery, a 4Fr sheath was inserte d Venous access was obtained via the left femoral vein, a 7Fr sheath was inserted. A 7Fr thermal dilu tion catheter was inserted and right heart pressures were recorded, it was then advanced to PA positi on for cardiac outputs. Thermal dilution cardiac outputs were then recorded. O2 saturations were then obtained. Simultaneous pressures were then recorded. Left Ventriculography was performed in VILLEDA projection using a 4 Fr. Pigtail catheter. LV to AO pullback pressures were then rec orded. Left Coronary Artery selective angiography was performed in multiple views using a 4 Fr. JL5 c atheter. Right Coronary Artery selective angiography was then performed in multiple views using a 4 F r. 3DRC catheter.The venous sheath was then pulled and manual compression applied until hemostasis ac hieved CORONARY ANGIOGRAPHY DOMINANCE: Right Dominant LEFT HEART ASSESSMENT Left Ventricular Ejection Fraction: by LV Gram 75 % Normal LV wall motion Normal Left Ventricular systolic function LVEDP: 3. mmHg Normal Left Ventricular End Diastolic Pressure Left Ventricular Hypertrophy RIGHT HEART ASSESSMENT Thermal CO: 3.7 Thermal CI: 2.03 PW: /13 7 PA: 23/8 15 RV: 25/0 2 RA: /3 1 PVR: 173 SVR: 2141 Right Heart pressures - normal LEFT MAIN: Angiographically normal LEFT ANTERIOR DESCENDING ARTERY: MID LAD: Previously placed stent is patent CIRCUMFLEX ARTERY: Mild luminal irregularities less than 30% RIGHT CORONARY ARTERY: MID RCA: Mild luminal irregularities less than 30% COMPLICATIONS No Complications PROCEDURE MEDICATIONS Nitro 200 mcg IC 09/19/2019 09:13:23 SUMMARY OF HEMODYNAMIC DATA Time AIR REST ECG 08:18:53 RA /3 (1) SV 08:59:08 RV 25/0, 2 08:59:28 PW /13 (7) PV 09:00:16 PA 23/8 (15) PA 09:00:44 LV 141/-15, 3 09:04:37 LV 136/-13, 3 09:04:43 LV 136/-12, 4 09:04:59 PA 26/6 (9) 09:04:59 LV 136/-11, 3 09:05:23 PW /13 (11) 09:05:23 LV 135/-13, 4 09:05:45 RV 25/0, 3 09:05:45 LV 136/0, 13 09:06:58 LV 143/-11, 7 09:07:05 LVp 148/-4, 20 09:07:11 AOp 146/66 (101) 09:07:16 AO 120/80 (100) SA 09:09:12 Type SV CO (l/m) CI (l/m/ HR Time AIR REST Thermal 51.40 3.70 2.03 72 07:03:14 Signed By Oscar Araujo MD On 09/19/2019 09:26:25 Oscar Araujo MD
== END 2019-09-19 14:05 | disposition home or self-care (01) ==
LOC: CLSP 06:40
PROVIDERS: PCP Internal Medicine; Referring Provider Internal Medicine Cardiovascular Disease; Visit Provider Internal Medicine Cardiovascular Disease
DX: R94.39 Abnormal result of other cardiovascular function study (principal); R06.02 Shortness of breath; R07.9 Chest pain, unspecified; R06.09 Other forms of dyspnea; I48.91 Unspecified atrial fibrillation; I25.119 Atherosclerotic heart disease of native coronary artery with unspecified angina pectoris; R42 Dizziness and giddiness; E11.9 Type 2 diabetes mellitus without complications; I10 Essential (primary) hypertension; E78.5 Hyperlipidemia, unspecified; E78.00 Pure hypercholesterolemia, unspecified; F32.9 Major depressive disorder, single episode, unspecified; K21.9 Gastro-esophageal reflux disease without esophagitis; E66.9 Obesity, unspecified; Z95.5 Presence of coronary angioplasty implant and graft; Z79.82 Long term (current) use of aspirin; Z85.038 Personal history of other malignant neoplasm of large intestine; Z90.49 Acquired absence of other specified parts of digestive tract
CPT/HCPCS: 36415; 71046; 80048; 82803; 85027; 85610; 85730; 93460; Q9967; C1751; C1769; C1894

== ENCOUNTER → 2019-10-07 10:50 | Day surgery (SDC) | payer MEDICARE, BC, SELFPAY ==
[2016-06-23 10:21] VITALS: BMI 39.4
[2019-09-18 08:23] VITALS: BMI 38.9
[2019-10-06 12:16] VITALS: BMI 38.9
--- NOTE | 2019-10-07 12:30 | HP_ITS ---
HPI HPI History of Present Illness Surgical H&P: Yes Details: This is an 83-year-old female that presents here today for an updated history and physical for an abnormal stress test she is scheduled to have a heart catheterization done next week. This is scheduled for 09/19/2019. She has a history of coronary artery disease with stenting to her LAD in 2017. She also has a history of hypertension, hyperlipidemia and diabetes. After her heart catheterization in 2017 she did develop a hematoma and did require 1 unit of blood. She did not require any debridement. At her office visit earlier this month she commented on increased tiredness. She underwent a stress test and echocardiogram. Patient was noted to have significant shortness of breath with walking on the treadmill. Echocardiogram images did not demonstrate any ischemia however patient was noted to have a newly noted atrial fibrillation. She is scheduled to undergo a right and left heart catheterization next week. Pt sts that she has noted SOB with exertion and CP that radiates to her back/shoulder. She does notes that this has been going on for a few months. Prior to her stress test she thought that this was related to arthritis. This is different to what she had prior to her previous stent. She is not SOB at rest. She does not have any palpitations. She does have positional dizziness. This is with anytime that she bends over. She does not have any edema. Intake Vital Signs 09/11/19 Height 4 ft 11 in 09/11/19 Weight: 193 lb 09/11/19 BP 151/75 H 09/11/19 Blood Pressure Location Rt brachial 09/11/19 Position Sitting 09/11/19 Respiration 18 09/11/19 Pulse 54 L 09/11/19 Pulse Source Monitor 09/11/19 Pulse Oximetry (%) 96 Intake Visit Reasons: Update H & P/LM Needle Grader Required: No Is patient in pain?: No Allergies morphine Allergy (Mild, Verified 11/14/18 09:34) Hives Medications Aspirin [Aspirin, Baby] 81 mg PO QHS 06/22/16 [History Confirmed 09/11/19] Atorvastatin Calcium [Lipitor] 80 mg PO QHS 06/22/16 [History Confirmed 09/11/19] Cyanocobalamin (Vitamin B-12) [Vitamin B-12] 1,000 mcg PO DAILY 06/22/16 [History Confirmed 09/11/19] Metformin HCl 500 mg PO BID 06/22/16 [History Confirmed 09/11/19] Montelukast [Singulair] 10 mg PO QHS 06/22/16 [History Confirmed 09/11/19] Amlodipine [Norvasc] 5 mg PO DAILY #30 tab 07/06/16 [Rx Confirmed 09/11/19] Clopidogrel Bisulfate [Plavix] 75 mg PO DAILY #30 tab 07/06/16 [Rx Confirmed 09/11/19] carvedilol 25 mg tablet 25 mg PO BID 07/05/17 [History Confirmed 09/11/19] losartan 25 mg tablet 25 mg PO QDAY #90 tab 12/18/17 [Rx Confirmed 09/11/19] citalopram 40 mg tablet 20 mg PO DAILY 07/08/18 [History Confirmed 09/11/19] omega-3 fatty acids 1,000 mg capsule 1,000 mg PO TID cap 07/08/18 [History Confirmed 09/11/19] furosemide 40 mg tablet 40 mg PO DAILY 11/14/18 [History Confirmed 09/11/19] cefdinir 300 mg capsule 300 mg PO BID 09/11/19 [History Confirmed 09/11/19] [facility] Medical History New onset atrial fibrillation (Acute) Dyspnea on exertion (Acute) Atherosclerotic heart disease [place] coronary artery w/angina pectoris (Acute) Type 2 diabetes mellitus without complications (Chronic) Atherosclerotic heart disease of [place] coronary artery without angina pectoris (Chronic) Hypertension (Chronic) Nonsustained ventricular tachycardia (Chronic) Non-STEMI (non-ST elevated myocardial infarction) (Resolved) Hyperlipemia (Chronic) Asthma (Chronic) Depression (Chronic) GERD (gastroesophageal reflux disease) (Chronic) Hematoma of groin (Chronic) Hiatal hernia (Chronic) History of colon cancer (Chronic) Obesity (Chronic) Surgical History History of coronary artery stent placement (Chronic 06/23/16) History of (Chronic) History of cholecystectomy (Chronic ~2011) History of colectomy (Chronic ~04/2001) Family History Mother CAD (coronary artery disease) Father CAD (coronary artery disease) Brother CAD (coronary artery disease) Sister CAD (coronary artery disease) Social History (Updated 09/11/19 @ 16:32 by ROBBIE Ersnt) Smoking Status: Never smoker alcohol intake: never substance use type: does not use caffeine: Yes Type: coffee Number of servings: 4 ROS Const Const: Positive for fatigue; negative for weakness, fever(s) or headache(s) Eyes Eyes: Negative for blind spots, loss of peripheral vision or transient loss of vision ENT ENT: Positive for dizziness; negative for headache(s), tinnitus or Nosebleed/epistaxis Cardio Chest Pain: Yes Palpitations: No Edema: None Muscle aches with walking: None Resp Respiratory: Positive for SOB with activity; negative for SOB at rest, SOB orthopnea\SOB lying down or Cough GI GI: Negative nausea, vomiting, heartburn or vomiting blood/hematemesis : Negative for hematuria Musc Musc: Negative for muscle aches/ myalgia Neuro Neuro: Positive for dizziness; negative for lightheadedness, near syncope, syncope, orthostatic symptoms, headache(s) or weakness Felice Hematologic/Lymphatic: Negative for easy bleeding Endo Endo: Positive for fatigue Cardiology Exam Const Appearance: cooperative, healthy appearing and no acute distress Nutritional Appearance: well nourished Orientation: alert, oriented x3 and oriented to person Head Head: normal to inspection, normocephalic and atraumatic Nose: external nose normal Face and Sinus: face symmetric Mouth: oral mucosae normal Eyes General: appearance normal, both eyes and all related structures Eyelids: eyelids normal Conjunctivae: conjunctivae normal Pupils: PERRL and normal by confrontation EOM: EOM intact bilaterally Neck Neck: normal visual inspection and full ROM Carotids: normal carotid upstroke Chest Chest inspection: normal inspection of the chest Auscultation: Bilateral: Clear to Auscultation Cardio Palpation: normal PMI Rate: regular rate Rhythm: regular rhythm Heart sounds: S1 normal, S2 normal and murmur Murmur: Grade 1/6, soft and mid systolic GI GI: normal to inspection, no hepatosplenomegaly and bowel sounds present Neuro General: alert, awake, oriented x3, CN's II-XI intact bilaterally and moves all extremities Skin Skin: no rashes or lesions noted Extremities Pulses: Normal: Right Femoral Pulse, Left Femoral Pulse, Right Dorsalis Pedis Pulse, Left Dorsalis Pedis Pulse, Right Posterior Tibial Pulse, Left Posterior Tibial Pulse, Right Radial Pulse, Left Radial Pulse Lower Extremity Edema: None: Bilateral Psych Psychological: normal affect Assessment & Plan 1. Atherosclerotic heart disease [place] coronary artery w/angina pectoris I25.119 Plan Patient does have significant shortness of breath with exertion. Concerned that this could be an anginal equivalent, she did have a stress test that did not show any ischemia however it is again noted that she had significant dyspnea. We will proceed with a left and right heart catheterization. 2. New onset atrial fibrillation I48.91 Plan Patient does have newly noted atrial fibrillation. Currently she is not anticoagulated. Will need to rediscuss after her heart catheterization. If she is still in atrial fibrillation will consider cardioversion after she has been anticoagulated for 30 days. It is noted that patient does have severe left atrial enlargement. 3. Essential hypertension I10 4. Pure hypercholesterolemia E78.00 Plan Patient will continue with high intensity statin. Plan Detail Follow Up 09/11/19 (with me on 10/02 at 0900) Coding Level of Care Code Off vis,est,level 4 Diagnoses Atherosclerotic heart disease [place] coronary artery w/angina pectoris I25.119 New onset atrial fibrillation I48.91 Essential hypertension I10 ??Hypertension type: essential hypertension Pure hypercholesterolemia E78.00 ??Hyperlipidemia type: pure hypercholesterolemia Coding Level of Care Code Off vis,est,level 4 Diagnoses Atherosclerotic heart disease [place] coronary artery w/angina pectoris I25.119 New onset atrial fibrillation I48.91 Essential hypertension I10 ??Hypertension type: essential hypertension Pure hypercholesterolemia E78.00 ??Hyperlipidemia type: pure hypercholesterolemia Supplemental Info Supplemental Information Stress echo 08/2019: EKG Data Atrial fibrillation with controlled ventricular response. The patient exercised according to the regular Christos protocol for a total duration of 3:13. The maximum heart rate attained was 133 beats per minute. This was 97% of maximum predicted heart rate. The patient exercised into stage 2 of the Christos protocol. During stress, there were no ST or T wave changes noted to suggest ischemia. No clinical angina was noted. Interpretation Summary The estimated ejection fraction is 65 %. Normal, adequate, treadmill echocardiogram. Negative for ischemia by EKG and echocardiographic anterior. No anginal symptoms noted. Baseline atrial fibrillation but no other arrhythmias noted. Appropriate blood pressure response to exercise. Test terminated due to the attainment of target heart rate and severe dyspnea. Below average exercise capacity for age. Patient tolerated procedure well. Poor echo windows requiring Definity agent making interpretation somewhat problematic. No complications. The study was technically difficult. Contrast injection was performed. Echocardiogram 2019: The estimated ejection fraction is 65 %. Stage 1 diastolic dysfunction. The left atrium is severely enlarged. Mild (1+) eccentric mitral valve insufficiency. Mild (1+) tricuspid valve insufficiency. Right ventricular systolic pressure estimated to be 33 mmHg. Mild aortic stenosis. Trivial aortic valve insufficiency. Compared to echo report dated 07/25/2018, LV function has remained the same, RVSP has improved from 38 to 33 mmHg. Labs LDL Cholesterol 30 mg/dL (0-130) 12/03/18 HDL Cholesterol 37 mg/dL (40-) L 12/03/18 Triglycerides 165 mg/dL (-199) 12/03/18 VLDL Cholesterol 33 mg/dL (5-40) 12/03/18 Diagnostics Echocardiogram 08/29/19 Stress Echocardiogram 09/05/19 Chest X-Ray 09/09/19 COVID (Procedure Consent) Procedure Criteria Procedure Criteria: Yes Elective The surgeon/proceduralist and patient have discussed in detail the risk of exposure to and/or potential harm posed by the COVID-19 virus with having a surgery/procedure at this time versus the risk of? delaying the surgery/procedure. It is not possible to know either the risk of delaying the surgery or procedure or chance of getting an infection with perfect accuracy, but a joint decision was made between the patient and the surgeon/proceduralist ?to proceed at this time with the scheduled surgery/procedure as indicated on the consent form. I have re-examined the patient. There are no clinical changes since date of exam.
--- NOTE | 2019-10-07 12:33 | PCM.PN.BLA ---
Progress Note Addendum 05-03-2019 preprocedure updated H&P: Prior to performing synchronized biphasic DC cardioversion the patient was noted to be in a regular rhythm. An ECG was performed which demonstrated underlying sinus rhythm. Thus the patient did not require synchronized biphasic DC cardioversion. The procedure was canceled. The patient was released home for continued outpatient cardiovascular follow-up.
== END ==
PROVIDERS: PCP Internal Medicine; Referring Provider Internal Medicine Cardiovascular Disease; Visit Provider Internal Medicine Cardiovascular Disease
DX: I48.91 Unspecified atrial fibrillation (principal); I25.119 Atherosclerotic heart disease of native coronary artery with unspecified angina pectoris; I11.9 Hypertensive heart disease without heart failure; E78.00 Pure hypercholesterolemia, unspecified; E11.9 Type 2 diabetes mellitus without complications; I47.2 Ventricular tachycardia; I25.2 Old myocardial infarction; F32.9 Major depressive disorder, single episode, unspecified; E66.9 Obesity, unspecified; Z79.82 Long term (current) use of aspirin; Z79.84 Long term (current) use of oral hypoglycemic drugs; Z79.899 Other long term (current) drug therapy; Z53.8 Procedure and treatment not carried out for other reasons
CPT/HCPCS: 93005

== ENCOUNTER → 2019-10-29 10:50 | Outpatient (CLI) | payer MEDICARE, BC, SELFPAY ==
[2016-06-23 10:21] VITALS: BMI 39.4
[2019-10-24 13:00] VITALS: BMI 38.7
== END ==
PROVIDERS: PCP Internal Medicine; Referring Provider Internal Medicine Cardiovascular Disease; Visit Provider Internal Medicine Cardiovascular Disease
DX: I25.119 Atherosclerotic heart disease of native coronary artery with unspecified angina pectoris (principal); I48.91 Unspecified atrial fibrillation; I47.2 Ventricular tachycardia; I10 Essential (primary) hypertension; E78.5 Hyperlipidemia, unspecified; R00.1 Bradycardia, unspecified; Z95.5 Presence of coronary angioplasty implant and graft
CPT/HCPCS: 93225; 93226

== ENCOUNTER → 2020-07-06 06:01 | Outpatient (CLI) | payer MEDICARE, BC, SELFPAY ==
[2016-06-23 10:21] VITALS: BMI 39.4
[2020-06-24 13:11] VITALS: BMI 38.8
--- NOTE | 2020-07-06 08:22 | STRESSREP_ITS ---
Stress Test Report Date: 07-06-2020 Procedure: Pharmacologic stress nuclear imaging study Indications: Fatigue; paroxysmal atrial fibrillation; CAD; PCI Consent: Per the patient Procedure: The patient underwent pharmacologic (Regadenoson 0.4mg ) evaluation with a peak heart rate of 94 beats per minute (69%predicted maximal heart rate) and a peak blood pressure of 140/82 mmHg. The baseline ECG demonstrated normal sinus rhythm; anteroseptal [place] of indeterminate age cannot be excluded. The peak pharmacologic ECG demonstrated no obvious ECG changes. There were no cardiac dysrhythmias pretest, during pharmacologic infusion, or recovery. There was no complaint of chest discomfort during pharmacologic infusion or recovery. The examination was discontinued secondary to completion of protocol. Impression: 1. Pharmacologic (Regadenoson) evaluation 2. Peak pharmacologic ECG with no obvious ECG changes. 3. There were no cardiac dysrhythmias pretest, during pharmacologic infusion, or recovery. 4. Nuclear images pending Myocardial perfusion imaging study: Technique: The patient was injected with 14.4 millicuries of technetium 99m Cardiolite and subsequently rest SPECT Cardiolite nuclear imaging was obtained in the horizontal long, vertical long, and short axis views. The patient underwent pharmacologic (Regadenoson) evaluation with a peak heart rate of 94 beats per minute (69% percent predicted maximal heart rate) and a peak blood pressure of 140/82 mmHg. The patient was injected with 44.3 millicuries of technetium 99m Cardiolite and subsequently stress SPECT Cardiolite nuclear imaging was obtained in the horizontal long, vertical long, and short axis views. A gated Cardiolite study at peak stress was obtained. Interpretation: Rest and stress SPECT Cardiolite nuclear imaging status post realignment, normalization, and attenuation correction demonstrate a small area of subtle diminished tracer uptake near the apical segments without significant change between rest and stress. There is end systolic thickening and brightening. The gated Cardiolite study demonstrates myocardial thickening and inward wall motion. The reported LVEF is 80%. Impression: 1. Rest and stress SPECT Cardiolite nuclear imaging demonstrate myocardial perfusion changes appearing compatible with the effects of physiologic apical thinning with no myocardial perfusion changes considered diagnostic for associated stress-induced myocardial ischemia. 2. The gated Cardiolite study reports an LVEF of 80%. This note was generated with [employer] software. It may contain incorrect words, spelling, and punctuation that were not noted in checking the note before signing.
== END ==
PROVIDERS: PCP Internal Medicine; Referring Provider Internal Medicine Cardiovascular Disease; Visit Provider Internal Medicine Cardiovascular Disease
DX: I25.119 Atherosclerotic heart disease of native coronary artery with unspecified angina pectoris (principal); I47.2 Ventricular tachycardia; I10 Essential (primary) hypertension; E78.5 Hyperlipidemia, unspecified; I48.0 Paroxysmal atrial fibrillation; Z95.5 Presence of coronary angioplasty implant and graft
CPT/HCPCS: 78452; 93017; A9500; A4216; J2785

== ENCOUNTER → 2022-12-07 | Outpatient (CLI) | payer MEDICARE, BC, SELFPAY ==
[2016-06-23 10:21] VITALS: BMI 39.4
--- NOTE | 2022-12-07 10:43 | ECHOD_ITS ---
Reason For Study: MURMUR Procedure This was a 2D Doppler, Color Flow transthoracic echocardiogram. Exam performed in department. Left Ventricle Severe concentric left ventricular hypertrophy. The left ventricular ejection fraction is 65 %. Stage 2 diastolic dysfunction. Right Ventricle Normal right ventricle. Atria The left atrium is severely enlarged. Normal right atrium. Mitral Valve Severe mitral annular calcification. Mild (1+) mitral valve insufficiency. Tricuspid Valve Mild tricuspid valve insufficiency. Right ventricular systolic pressure estimated to be 35 mmHg. Aortic Valve The aortic valve is not well visualized in the short axis view. Mild (1+) aortic valve insufficiency. Pulmonic Valve The pulmonic valve is not well visualized. Great Vessels Normal sized aortic root. Pericardium/Pleural No pericardial effusion. MMode/2D Measurements & Calculations LVIDd: 3.4 cm IVSd: 1.6 cm LVOT diam: 2.1 cm LVIDs: 2.3 cm LVPWd: 1.3 cm LVOT area: 3.3 cm2 FS: 33.1 % Ao root diam: 3.0 cm LAV(MOD-bp): 93.4 ml LVAd ap4: 18.7 cm2 LAV(MOD-bp) Indexed: 53.9 ml/m2 LVLd ap4: 6.4 cm LAV(MOD-sp2): 72.5 ml EDV(MOD-sp4): 46.1 ml LAV(MOD-sp4): 99.0 ml EDV(sp4-el): 46.7 ml LVAs ap4: 8.0 cm2 LVLs ap4: 5.4 cm ESV(MOD-sp4): 11.0 ml ESV(sp4-el): 10.2 ml EF(MOD-sp4): 76.1 % EF(sp4-el): 78.1 % SV(MOD-sp4): 35.1 ml SV(sp4-el): 36.5 ml LA A4 area: 29.0 cm2 LA dimension(2D): 3.5 cm RA A4 area: 11.0 cm2 TAPSE: 1.9 cm Time Measurements MV dec time: 0.33 sec Doppler Measurements & Calculations MV E max parth: 101.0 cm/sec Lat Peak E' Parth: 4.6 cm/sec Med Peak E' Parth: 3.4 cm/sec MV A max parth: 129.3 cm/sec E/E' lat: 22.1 E/E' med: 29.4 MV E/A: 0.78 MV V2 max: 133.7 cm/sec Ao V2 max: 169.7 cm/sec MV max P.2 mmHg MV dec slope: 308.1 cm/sec2 Ao max P.5 mmHg MV V2 mean: 84.5 cm/sec Ao V2 mean: 109.2 cm/sec MV mean P.1 mmHg Ao mean P.6 mmHg MV V2 VTI: 42.6 cm Ao V2 VTI: 38.2 cm AV (velocity ratio): 0.78 MVA(VTI): 2.3 cm2 NATHANIEL(I,D): 2.6 cm2 NATHANIEL(V,D): 2.5 cm2 LV V1 max: 128.7 cm/sec SV(LVOT): 99.1 ml PA V2 max: 94.1 cm/sec LV V1 max P.6 mmHg PA V2 mean: 64.8 cm/sec LV V1 mean P.7 mmHg LV V1 mean: 90.8 cm/sec LV V1 VTI: 29.8 cm TR max parth: 267.7 cm/sec TR max P.7 mmHg ECHO/Echo Complete Interpretation Summary Severe concentric left ventricular hypertrophy. The left ventricular ejection fraction is 65 %. Stage 2 diastolic dysfunction. Severe mitral annular calcification. Mild (1+) mitral valve insufficiency. Mild tricuspid valve insufficiency. Mild (1+) aortic valve insufficiency. The left atrium is severely enlarged. Ordering Physician: Art Melara Referring Physician: Art Melara Performed By: Sasha Castro RCS
== END | disposition home or self-care (01) ==
LOC: CVS 10:41
PROVIDERS: PCP Internal Medicine; Referring Provider Internal Medicine Cardiovascular Disease; Visit Provider Internal Medicine Cardiovascular Disease
DX: I25.10 Atherosclerotic heart disease of native coronary artery without angina pectoris (principal); I48.0 Paroxysmal atrial fibrillation; I35.0 Nonrheumatic aortic (valve) stenosis; R06.09 Other forms of dyspnea
CPT/HCPCS: 93306

== ENCOUNTER → 2023-11-09 | Outpatient (CLI) | payer MEDICARE, BC, SELFPAY ==
[2016-06-23 10:21] VITALS: BMI 39.4
[2023-11-09 09:56] LABS: ALB/GLOB Ratio 0.9 RATIO (0.9-2.4); AST(SGOT) 14 U/L (15-37); Alanine Aminotransfer ALT/SGPT 18 U/L (13-56); Albumin, Serum 3.3 g/dL (3.2-5.0); Alkaline Phosphatase 73 U/L (45-117); Anion Gap 3 (5-15); BUN 31 mg/dL (7-18); BUN/Creat Ratio 17.7 RATIO (10-20); Calcium,Total 9.3 mg/dL (8.5-10.1); Chloride 109 mmol/L (98-107); Cholesterol 102 mg/dL (200); Creatinine, Serum 1.75 mg/dL (0.55-1.02); EST Glomerular Filtration Rate 29 mL/min (>60); Est Glom Filt Rate - Afr Amer 35 mL/min (>60); Globulin 3.5 g/dL (2.2-4.2); Glucose 117 mg/dL (74-106); High Density Lipoprotein 53 mg/dL; Potassium 4.9 mmol/L (3.5-5.1); Protein, Total 6.8 g/dL (6.4-8.2); Sodium Level 140 mmol/L (136-145); Triglycerides 78 mg/dL; Very Low Density Lipoprotein 16 mg/dL (5-40)
== END | disposition home or self-care (01) ==
LOC: LAB 09:06
PROVIDERS: PCP Internal Medicine; Referring Provider Internal Medicine Cardiovascular Disease; Visit Provider Internal Medicine Cardiovascular Disease
DX: D64.9 Anemia, unspecified (principal); I48.91 Unspecified atrial fibrillation; E11.9 Type 2 diabetes mellitus without complications; I25.10 Atherosclerotic heart disease of native coronary artery without angina pectoris; E78.5 Hyperlipidemia, unspecified; I10 Essential (primary) hypertension
CPT/HCPCS: 36415; 80053; 80061

== ENCOUNTER → 2023-11-14 | Outpatient (CLI) | payer MEDICARE, BC, SELFPAY ==
[2016-06-23 10:21] VITALS: BMI 39.4
--- NOTE | 2023-11-14 13:56 | ECHOD_ITS ---
Reason For Study: CORONARY ARTERY DISEASE Procedure This was a 2D Doppler, Color Flow transthoracic echocardiogram. Exam performed in department. Left Ventricle Normal LV size. Moderate concentric left ventricular hypertrophy. The left ventricular ejection fraction is 70 %. Stage 2 diastolic dysfunction. Right Ventricle Normal right ventricle. Atria The left atrium is severely enlarged. Normal right atrium. Mitral Valve Severe mitral annular calcification. Mild (1+) mitral valve insufficiency. Tricuspid Valve Mild tricuspid valve insufficiency. Right ventricular systolic pressure estimated to be 37 mmHg. Aortic Valve Mild diffuse aortic valve calcification. Mild aortic valve stenosis. Moderate aortic valve regurgitation. Pulmonic Valve The pulmonic valve is not well visualized. Trivial pulmonic valve insufficiency. Great Vessels Normal sized aortic root. Pericardium/Pleural No pericardial effusion. MMode/2D Measurements & Calculations LVIDd: 3.8 cm IVSd: 1.5 cm LVOT diam: 1.9 cm LVIDs: 1.6 cm LVPWd: 1.3 cm LVOT area: 2.9 cm2 RVDd: 3.0 cm FS: 59.3 % asc Aorta Diam: 3.1 cm LAV(MOD-bp): 60.9 ml LVAd ap4: 16.1 cm2 LAV(MOD-bp) Indexed: 34.3 ml/m2 LVLd ap4: 6.0 cm LAV(MOD-sp2): 57.1 ml EDV(MOD-sp4): 35.7 ml LAV(MOD-sp4): 60.1 ml EDV(sp4-el): 36.8 ml LVAs ap4: 7.5 cm2 LVLs ap4: 5.0 cm ESV(MOD-sp4): 10.3 ml ESV(sp4-el): 9.7 ml EF(MOD-sp4): 71.1 % EF(sp4-el): 73.5 % LVAd ap2: 13.8 cm2 SV(MOD-sp4): 25.4 ml SV(MOD-sp2): 17.1 ml LVLd ap2: 6.2 cm EDV(MOD-sp2): 25.3 ml EDV(sp2-el): 26.4 ml LVAs ap2: 7.1 cm2 LVLs ap2: 5.3 cm ESV(MOD-sp2): 8.3 ml ESV(sp2-el): 8.1 ml EF(MOD-sp2): 67.4 % SV(sp4-el): 27.0 ml Ao sinus diam: 2.[address] Junction: 2.2 cm LA dimension(2D): 4.1 cm LA A4 area: 21.3 cm2 RA A4 area: 8.8 cm2 TAPSE: 2.1 cm Time Measurements MV dec time: 0.32 sec Doppler Measurements & Calculations MV E max parth: 114.9 cm/sec Lat Peak E' Parth: 5.2 cm/sec Med Peak E' Parth: 4.3 cm/sec MV A max parth: 131.4 cm/sec E/E' lat: 22.3 E/E' med: 26.6 MV E/A: 0.87 MV V2 max: 169.7 cm/sec MV dec slope: 358.6 cm/sec2 Ao V2 max: 238.0 cm/sec MV max P.5 mmHg Ao max P.7 mmHg MV V2 mean: 111.0 cm/sec Ao V2 mean: 165.6 cm/sec MV mean P.2 mmHg Ao mean P.4 mmHg MV V2 VTI: 47.2 cm Ao V2 VTI: 52.5 cm MVA(VTI): 2.0 cm2 AV (velocity ratio): 0.60 NATHANIEL(I,D): 1.8 cm2 NATHANIEL(V,D): 1.7 cm2 AI max parth: 460.3 cm/sec LV V1 max: 140.8 cm/sec SV(LVOT): 92.9 ml AI max P.7 mmHg LV V1 max P.9 mmHg LV V1 mean P.0 mmHg AI dec slope: 307.8 cm/sec2 LV V1 mean: 107.7 cm/sec AI P1/2t: 438.1 msec LV V1 VTI: 31.7 cm PA V2 max: 126.7 cm/sec TR max parth: 282.4 cm/sec PA max PG (full): 2.9 mmHg TR max P.9 mmHg ECHO/Echo Complete Interpretation Summary Moderate concentric left ventricular hypertrophy. The left ventricular ejection fraction is 70 %. Stage 2 diastolic dysfunction. The left atrium is severely enlarged. Severe mitral annular calcification. Mild (1+) mitral valve insufficiency. Mild tricuspid valve insufficiency. Right ventricular systolic pressure estimated to be 37 mmHg. Mild aortic valve stenosis. Moderate aortic valve regurgitation. Ordering Physician: Art Melara Referring Physician: Art Melara MD Performed By: Mary Lane RDCS
== END | disposition home or self-care (01) ==
LOC: CVS 13:51
PROVIDERS: PCP Internal Medicine; Referring Provider Internal Medicine Cardiovascular Disease; Visit Provider Internal Medicine Cardiovascular Disease
DX: I25.10 Atherosclerotic heart disease of native coronary artery without angina pectoris (principal)
CPT/HCPCS: 93306

== ENCOUNTER 2024-08-17 19:42 | Emergency (ER) | payer MEDICARE, BC, SELFPAY ==
[2016-06-23 10:21] VITALS: BMI 39.4
[2024-08-17 19:46] VITALS: BP 145/29; PULSE 105; RESP 22; TEMP 36.3; O2SAT 100; BMI 39.4
--- NOTE | 2024-08-17 19:49 | ED.VIS.CHEST ---
HPI <Dr. Shakeel Rehman, DO - Last Filed: 08/17/24 22:01> History of Present Illness Chief Complaint: Chest Pain [facility] <Dr. Shakeel Rehman, DO - Last Filed: 08/17/24 22:01> [facility] Medical History Anemia Aortic stenosis Asthma Atherosclerotic heart disease [place] coronary artery w/angina pectoris Atherosclerotic heart disease of [place] coronary artery without angina pectoris Coronary artery disease Depression Dyspnea on exertion GERD (gastroesophageal reflux disease) Hematoma of groin Hiatal hernia History of colon cancer Hyperlipemia Hypertension New onset atrial fibrillation Non-STEMI (non-ST elevated myocardial infarction) Nonsustained ventricular tachycardia Obesity Paroxysmal atrial fibrillation Subdural hematoma, acute Type 2 diabetes mellitus without complications Home Medications ?Medication ?Instructions ?Recorded ?Last Taken ?Type cyanocobalamin (vitamin B-12) 1,000 mcg PO DAILY 06/22/16 06/22/16 History 1,000 mcg tablet montelukast 10 mg tablet 10 mg PO QHS 06/22/16 06/21/16 History omeprazole 20 mg capsule,delayed 20 mg PO DAILY 12/08/20 Unknown History release losartan 100 mg tablet 100 mg PO DAILY 12/14/21 Unknown History ferrous sulfate 325 mg (65 mg 325 mg PO DAILY 12/06/22 Unknown History iron) tablet apixaban 2.5 mg tablet (Eliquis) 2.5 mg PO BID 07/26/23 Unknown History carvedilol 25 mg tablet 25 mg PO QDAY 07/26/23 Unknown History aspirin 81 mg tablet,delayed 81 mg PO QDAY 11/06/23 Unknown History release (Adult Aspirin Regimen) atorvastatin 40 mg tablet 40 mg PO QDAY #90 tabs 11/06/23 Unknown Rx fluoxetine 20 mg capsule 20 mg PO QDAY 11/06/23 Unknown History amlodipine 5 mg tablet 5 mg PO DAILY #90 tabs 01/28/24 Unknown Rx Allergy/AdvReac Type Severity Reaction Status Date / Time morphine Allergy Mild Hives Verified 08/17/24 19:48 Family History Mother CAD (coronary artery disease) Father CAD (coronary artery disease) Brother CAD (coronary artery disease) Sister CAD (coronary artery disease) Surgical History History of History of cholecystectomy (~2011) History of colectomy (~04/2001) History of coronary artery stent placement (06/23/16) History of right and left heart catheterization (09/19/19) Social History Smoking Status: Never smoker alcohol intake: never substance use type: does not use caffeine: Yes Type: coffee Number of servings: 4 EXAM <Dr. Shakeel Rehman, DO - Last Filed: 08/17/24 22:01> Physical Exam Const Vital Signs: 08/17/24 19:46 08/17/24 20:06 08/17/24 20:43 Temperature 97.4 F L Temperature Source Temporal Pulse Rate 105 H 80 Respiratory Rate 22 H Blood Pressure 145/29 H 178/79 H Blood Pressure Mean 67 112 Pulse Ox 100 100 96 Oxygen Delivery Method Room Air Room Air 08/17/24 21:00 08/17/24 22:00 08/17/24 23:00 Temperature Temperature Source Pulse Rate 83 88 82 Respiratory Rate 16 Blood Pressure 178/79 H 143/78 H 158/71 H Blood Pressure Mean 112 99 100 Pulse Ox 96 99 Oxygen Delivery Method Room Air 08/18/24 00:00 Temperature Temperature Source Pulse Rate 71 Respiratory Rate 20 H Blood Pressure 153/80 H Blood Pressure Mean 104 Pulse Ox 100 Oxygen Delivery Method <Dr. Leobardo Madrigal, DO - Last Filed: 08/18/24 00:39> Physical Exam Const Vital Signs: 08/17/24 19:46 08/17/24 20:06 08/17/24 20:43 Temperature 97.4 F L Temperature Source Temporal Pulse Rate 105 H 80 Respiratory Rate 22 H Blood Pressure 145/29 H 178/79 H Blood Pressure Mean 67 112 Pulse Ox 100 100 96 Oxygen Delivery Method Room Air Room Air 08/17/24 21:00 08/17/24 22:00 08/17/24 23:00 Temperature Temperature Source Pulse Rate 83 88 82 Respiratory Rate 16 Blood Pressure 178/79 H 143/78 H 158/71 H Blood Pressure Mean 112 99 100 Pulse Ox 96 99 Oxygen Delivery Method Room Air 08/18/24 00:00 Temperature Temperature Source Pulse Rate 71 Respiratory Rate 20 H Blood Pressure 153/80 H Blood Pressure Mean 104 Pulse Ox 100 Oxygen Delivery Method [facility] <Dr. Shakeel Rehman, DO - Last Filed: 08/17/24 22:01> [facility] Narrative Medical decision making narrative: HISTORY OF PRESENT ILLNESS: Chief complaint: Chest pain 88-year-old female history of CHF, aortic stenosis, CAD, A-fib (on Eliquis), hyperlipidemia presents with chest tightness. Notes chest tightness started 6:30 PM approxi-1/2 hours prior to arrival. It is midsternal and is nonradiating but it is exertional. It was initially 7/10 now it is 3/10 after aspirin nitroglycerin that were given per EMS. No recent cough fever or chills. No recent leg swelling the patient denies recent surgery in the last 4 weeks or immobilization in the last 3 days, denies previous diagnosis of DVT or PE, hemoptysis, unilateral leg swelling or malignancy with treatment the last 6 months or palliative. No estrogen use noted. Patient denies tearing sensation, no migratory symptoms, no new numbness, weakness or loss of sensation. Patient denies family history or personal history of Connective tissue disorders (Marfan's Syndrome, Vickie Danlos etc) REVIEW OF SYSTEMS: Pertinent positives: Chest tightness Pertinent negatives: As per [facility] PHYSICAL EXAM: Nursing triage notes reviewed, Vital signs reviewed Constitutional: please see [facility] HENT: MMM Eyes: Pupils equal round and reactive to light, Extraocular muscles intact Neck: No stridor, no JVD, full neck ROM Lungs: Clear to auscultation, No wheezing or rales. No increased work of breathing, no conversational dyspnea, no accessory muscle use, no nasal flaring. No respiratory distress noted Heart: Regular rate and rhythm, No murmurs, No rubs and No gallops, 2+ distal pulses (radial, femoral, posterior tibial) in all extremities Abdomen: Soft, there is no tenderness, rigidity, rebound or guarding, no obvious peritoneal signs, no palpable pulsatile abdominal masses, no auscultated abdominal bruit : No CVAT Extremities: No edema Neuro: No new focal neurological deficits, cranial nerves II through XII intact, 5/5 strength in all present extremities. Intact sensation to light touch in all present extremities, 2+ reflexes bilateral patella tendons. Skin: No rash or lesions noted MEDICAL DECISION MAKING: Chief Complaint: please see [facility] External records reviewed: Reviewed prior cardiovascular testing. Reviewed echocardiogram from 2023 showed ejection fraction 70% with stage II diastolic dysfunction Factors affecting care: As per [facility] Social determinants of health: none History obtained from others: none Consults: none [facility] Narrative: Patient was initially tachycardic, tachypneic with initial heart rate of 105 and respirate of 22, afebrile satting her percent room air I considered the following differential diagnosis: ACS, arrhythmia, anemia, electrolyte disturbance, pneumonia, pneumothorax, pericarditis, PE, aortic dissection I obtained a broad lab and to further determine if the patient was suffering from a life-threatening etiology. Initially treated with as needed sublingual nitroglycerin ALL IMAGES (IF OBTAINED) HAVE BEEN PERSONALLY REVIEWED AND INTERPRETED BY MYSELF. EKG with rate controlled A-fib rate 82, normal axis, normal intervals, no obvious CBC with no leukocytosis, noted severe anemia, no thrombocytopenia BMP without evidence of significant electrolyte abnormality, noted metabolic acidosis with a bicarb of 16, unclear mechanism of this metabolic acidosis. No sign of endorgan hypoperfusion with normal anion gap. No baseline CKD High-sensitivity troponin is negative, no evidence of myocardial ischemia waiting additional high-sensitivity troponin 0 The patient and/or family, caregivers express understanding. The patient and/or family, caregivers agrees with the plan. Shared decision making: I will have a discussion with the patient and or visitors regarding risk/benefits of further testing or admission. They will be made aware of of the risk/benefits inherent in this decision they will be given the opportunity to voice understanding. Total critical care time today provided was at least 0 minutes. This excludes separately billable procedures. Critical care time (if documented) is secondary to the patient having high probability of clinically significant/life threatening deterioration in the patient's condition which required my urgent intervention. Impression: 1. Chest pain 2. History of CAD 3. History of type 2 diabetes Dispo: Pending high-sensitivity troponin series. Signed out to overnight physician pending troponin evaluation and final disposition. This note was generated with [employer] dictation software. It may contain incorrect words, spelling, and punctuation that were not noted in review of the chart prior to signing. Lab Data Labs: Laboratory Results - last 24 hr 08/17/24 08/17/24 08/17/24 20:00 21:55 23:51 WBC 8.3 RBC 3.16 L Hgb 7.5 L Hct 25.3 L MCV 80.1 L MCH 23.7 L MCHC 29.6 L RDW Std Deviation 48.9 H RDW Coeff of Angelita 17.1 H Plt Count 217 MPV 11.1 Immature Gran % (Auto) 0.600 Neut % (Auto) 67.0 Lymph % (Auto) 20.3 Hickman % (Auto) 8.3 Eos % (Auto) 3.7 Baso % (Auto) 0.1 Absolute Neuts (auto) 5.6 Absolute Lymphs (auto) 1.69 Nucleated RBC % 0 Sodium 139 Potassium 4.7 Chloride 109 H Carbon Dioxide 16.1 L Anion Gap 14 BUN 31 H Creatinine 1.78 H Estim Creat Clear Calc 21.64 L Est GFR (MDRD) Non-Af 27 L BUN/Creatinine Ratio 17.3 Glucose 119 H Calcium 8.5 Magnesium 2.0 Troponin T High Sens 16 H Troponin T Hi Sens 2 Hr 17 H Troponin T Hi Sens 4Hr 16 H Radiography Diagnostic Testing: Clinical Impression(s) from Imaging Studies Chest X-Ray 08/17/24 20:10 IMPRESSION: 1. Increased interstitial markings, as may be seen with pulmonary edema or atypical/viral infection. 2. Probable hiatal hernia. Reading Location: [id number] <Dr. Leobardo Madrigal, DO - Last Filed: 08/18/24 00:39> [facility] Lab Data Attestation: I reviewed the patient's lab results. Labs: Laboratory Results - last 24 hr 08/17/24 08/17/24 08/17/24 20:00 21:55 23:51 WBC 8.3 RBC 3.16 L Hgb 7.5 L Hct 25.3 L MCV 80.1 L MCH 23.7 L MCHC 29.6 L RDW Std Deviation 48.9 H RDW Coeff of Angelita 17.1 H Plt Count 217 MPV 11.1 Immature Gran % (Auto) 0.600 Neut % (Auto) 67.0 Lymph % (Auto) 20.3 Hickman % (Auto) 8.3 Eos % (Auto) 3.7 Baso % (Auto) 0.1 Absolute Neuts (auto) 5.6 Absolute Lymphs (auto) 1.69 Nucleated RBC % 0 Sodium 139 Potassium 4.7 Chloride 109 H Carbon Dioxide 16.1 L Anion Gap 14 BUN 31 H Creatinine 1.78 H Estim Creat Clear Calc 21.64 L Est GFR (MDRD) Non-Af 27 L BUN/Creatinine Ratio 17.3 Glucose 119 H Calcium 8.5 Magnesium 2.0 Troponin T High Sens 16 H Troponin T Hi Sens 2 Hr 17 H Troponin T Hi Sens 4Hr 16 H Radiography Diagnostic Testing: Clinical Impression(s) from Imaging Studies Chest X-Ray 08/17/24 20:10 IMPRESSION: 1. Increased interstitial markings, as may be seen with pulmonary edema or atypical/viral infection. 2. Probable hiatal hernia. Reading Location: [id number] Treatment and Re-Evaluation :: The patient was signed out to me while awaiting her delta troponins. The initial troponin was 16 the 2-hour delta was 17 and the 4-hour was 16. These are within normal range and as patient falls out of the cardiac algorithm there is no need for admission. On reevaluation she is resting comfortably and is also chest pain-free and therefore should be discharged at this time with outpatient follow-up Discharge Plan Triage Chief Complaint: Chest Pain ED Provider: Shakeel Rehman Dx/Rx/DC Orders Clinical Impression: Nonspecific chest pain, Type 2 diabetes mellitus without complications, Hyperlipemia, Hypertension Instructions: ED Chest Pain, Uncertain Cause Prescriptions: No Action omeprazole 20 mg capsule,delayed release(DR/EC) 20 mg PO DAILY losartan 100 mg tablet 100 mg PO DAILY ferrous sulfate 325 mg (65 mg iron) tablet 325 mg PO DAILY carvedilol 25 mg tablet 25 mg PO QDAY Eliquis 2.5 mg tablet 2.5 mg PO BID aspirin [Adult Aspirin Regimen] 81 mg tablet,delayed release (DR/EC) 81 mg PO QDAY fluoxetine 20 mg capsule 20 mg PO QDAY atorvastatin 40 mg tablet 40 mg PO QDAY Qty: 90 3RF cyanocobalamin (vitamin B-12) 1,000 MCG tablet 1,000 mcg PO DAILY Patient Comments: supplement montelukast 10 MG tablet 10 mg PO QHS Patient Comments: allergies amlodipine 5 mg tablet 5 mg PO DAILY Qty: 90 3RF Primary Care Provider: Eitan Price Referrals: Mkial Gould MD [Med Staff - Active Staff] - Eitan Price MD [Primary Care Provider] - Activity Restrictions/Additional Instructions: Thank you for trusting us with your care today! The test on your heart showed no sign of damage. Please return to the emergency department if your symptoms change or worsen. Please follow with your Primary Care Physician and/or Cardiology for further outpatient evaluation and management. Print Language: Citizen [place] Disposition Disposition: Home, Self Care
--- NOTE | 2024-08-17 19:51 | EKG12_ITS ---
Test Reason : CP Blood Pressure : */* mmHG Vent. Rate : 82 BPM Atrial Rate : * BPM P-R Int : * ms QRS Dur : 86 ms QT Int : 394 ms P-R-T Axes : * 6 49 degrees QTcB Int : 460 ms Atrial fibrillation Low voltage QRS Septal infarct , age undetermined Abnormal ECG Confirmed by Sandeep Paris ([id number]), newspaper managing editor JL ALEJO ([id number]) on 08/18/2024 1:09:30 PM Referred By: COLEEN Confirmed By: Sandeep Paris
[2024-08-17 20:06] VITALS: O2SAT 100
[2024-08-17 20:06] LABS: Hematocrit 25.3 % (37-47); Hemoglobin 7.5 g/dL (12.0-15.0); Immature Granulocytes Count 0.050 X10^3/uL (0.0-0.0); Mean Corp Hgb Conc 29.6 g/dL (32-36); Mean Corpuscular Volume 80.1 fL (81-99); Mean Platelet Vol. 11.1 fl (6.2-12.0); NRBC Flagged by Analyzer 0 % (0-5); Platelet Count 217 K/mm3 (150-450); RBC Distribution Width CV 17.1 % (11.6-14.6); RBC Distribution Width SD 48.9 fl (35.1-43.9); Red Blood Count 3.16 M/mm3 (4.2-5.4); White Blood Count 8.3 K/mm3 (4.4-11.0)
--- NOTE | 2024-08-17 20:10 | RAD_ITS ---
PROCEDURE: CHEST 1 VIEW (PORTABLE) 08/17/2024 REASON FOR EXAM: CHEST PAIN TECHNIQUE: Frontal view of the chest. COMPARISON: Chest radiograph dated 09/09/2019 FINDINGS: Hardware: None Mediastinum: Cardiac and mediastinal contours are prominent, unchanged. Aortic atherosclerosis. There is suggestion of a hiatal hernia projecting over the lower mediastinum. Lungs: Interstitial markings are increased. No focal consolidation. Bones: Degenerative changes are identified within the thoracic spine. RAD/Chest 1 View (Portable) IMPRESSION: 1. Increased interstitial markings, as may be seen with pulmonary edema or aty pical/viral infection. 2. Probable hiatal hernia. Reading Location: [facility]
[2024-08-17 20:43] VITALS: BP 178/79; PULSE 80; O2SAT 96
[2024-08-17 21:00] VITALS: BP 178/79; PULSE 83; O2SAT 96
--- OUTSIDE RECORDS SUMMARY | 2024-08-17 21:08 | XMS RPT_ITS | CCD ---
Author Organization [facility] Care Team Providers Care Manufacturer'S Service Representative Name Role Phone Fonseca Esperanza Unavailable Unavailable Fonseca, Esperanza Unavailable Unavailable Trish, Jarrodumi Y Unavailable Unavailable MD Van, Oscar Hair Unavailable MAYRA Beauchamp, Claire Viramontes Unavailable Unavailabl e Raymundo, Esperanza Unavailable Unavailable MAYRA Beauchamp, Claire Viramontes Unavailable Unavailabl e Eitan Price Primary Care Provider Eitan Price Unavailable Eitan Price Unavailable Unavailable Jaime Chambers Unavailable Unavailable Eitan Price Unavailable Unavailable Unavailable Unavailable Unavailable Eitan Price MD Primary Care Provider JOSE REYNAGA Referring Unavailable EITAN PRICE Primary Care Unavailable SONYAJOSE Referring Unavailable EITAN PRICE Primary Care Unavailable SONYAJOSE Referring Unavailable EITAN PRICE Primary Care Unavailable Eitan Price MD Primary Care Provider Eitan Price MD Unavailable Eitan Price MD Primary Care Provider Albert, Dr. Eitan Swanson Primary Care Unavaila ble Albert, Dr. Eitan Swanson Referring Unavaila ble Mabsofie, Dr. Eitan Swanson Attending Unavaila ble Kubera, Ms. Tori Joshua Referring Unavaila ble Kubera, Ms. Tori Joshua Attending Unavaila ble Albert, Dr. Eitan Swanson Primary Care Unavaila ble Albert, Dr. Laird Primary Care Provider [phone] Albert, Dr. Laird Referring Provider Kelton, Dr. Cordova Attending Provider Chana Dave RN Unavailable Unavailable MABSOFIE, EITAN Abbasi Referring Unavailable MABSOFIE, EITAN Abbasi Primary Care Unavailable MABSOFIE, EITAN Abbasi Primary Care Unavailable FATUMA LEAL Consulting Unavailable JOSE PARKER Admitting Unavailable JOSE PARKER Attending Unavailable ANT CHAVEZ Consulting Unavailable IRVIN, CORBIN W Referring Unavailable MABSOFIE, EITAN Abbasi Primary Care Unavailable ERICA THOMPSON Attending Unavailable MABSOFIE, EITAN Abbasi Primary Care Unavailable MARK VAZQUEZ Attending Unavailable MABSOFIE, EITAN Abbasi Primary Care Unavailable Eitan Price MD Primary Care Provider [phone] ALBERT, EITAN Abbasi Primary Care Unavailable MABEE, EITAN Abbasi Primary Care Unavailable MABSOFIE, EITAN Abbasi Primary Care Unavailable MABSOFIE, EITAN Abbasi Primary Care Unavailable ERICA THOMPSON Referring Unavailable MABSOFIE, EITAN Abbasi Primary Care Unavailable Mabee Eitan GERARDO Primary Care Provider Albert, Eitan Primary Care Unavailable Kelton, Art Attending Unavailable Kelton, Art Referring Unavailable Mabsofie, Eitan Primary Care Unavailable Mabsofie, Eitan Referring Unavailable Kelton, Art Attending Unavailable MabEitan carrizales Primary Care Unavailable Mabsofie, Eitan Referring Unavailable Kelton, Art Attending Unavailable Kelton, Art Attending Unavailable Eitan Price Primary Care Unavailable Albert, Eitan Primary Care Unavailable Terrie Hyatt NP Attending Unavailable Mabsofie, Eitan Primary Care Unavailable Kelton, Art Attending Unavailable Kelton, Art Referring Unavailable EITAN PRICE Attending Unavailable MABSOFIE, EITAN Abbasi Primary Care Unavailable MABSOFIE, EITAN Abbasi Attending Unavailable MABSOFIE, EITAN Abbasi Primary Care Unavailable MABSOFIE, EITAN Abbasi Attending Unavailable MABSOFIE, EITAN Abbasi Primary Care Unavailable Allergies Allergy Classification Reported Allergen(s) Allergy Type Date of Onset Reaction(s) Facility (20 sources) morphine; Translations: [morphine] drug allergy 7 Other, Hives, Itching, Unknown [facility] Work Phone: (12 sources) NKDA; Translations: [NKDA] allergy to substance 7 [facility] Work Phone: (13 sources) Ibuprofen; Translations: [IBUPROFEN] Drug Allergy 2 Itching [facility] Medications Current Medications Medication Drug Class(es) Dates Sig (Normalized) Sig (Original) acetaminophen 325 mg oral tablet (10 sources) Start: 11-30-2022 acetaminophen (Tylenol) tablet 975 mg Start: 07-10-2016 take 2 tablets by mo uth twice daily as needed ACETAMINOPHEN ER 650 MG CR-TABS Two tablets by mouth twice daily as needed ACETAMINOPHEN [id number] Claire Beauchamp RN Start: 06-29-2016 End: 12-18-2017 take 325-650 mg by mouth every six hours as needed Acetaminophen Discontinued 325 - 650 MG PO EVERY 6 HOURS NEEDED June 28, 2016 11:00pm December 18, 2017 1:44pm amLODIPine 10 mg oral tablet (20 sources) Dihydropyridine Calcium Channel Silvana Start: 12-06-2022 take 10 mg by mouth once daily Amlodipine Active 10 MG PO DAILY 90 December 05, 2022 11:00pm Start: 06-28-2022 End: 06-28-2023 take 1 tablet by mouth once daily amLODIPine (Norvasc) 5 mg tablet Indications: Essential hypertension Take 1 tablet (5 mg) by mouth once daily. 90 tablet 3 06/28/2022 Active Start: 07-06-2016 amLODIPine (No rvasc) 5 mg tablet once every 24 hours. 0 07/06/2016 Active Start: 06-29-2016 End: 12-14-2021 take 1 tablet by mouth once daily amLODIPine Besylate 5 MG Oral Tablet Take 1 tablet by mouth daily Quantity: 90 Refills: 3 Ordered: 30-Nov-2020 Eitan Price MD Start : 14-Jul-2016 Active apixaban 2.5 mg oral tablet (20 sources) Factor Xa Inhibitor Start: 05-07-2023 take 1 tablet by mouth twice daily Eliquis 2.5 mg tablet Indications: ASHD (arteriosclerotic heart disease) TAKE 1 TABLET BY MOUTH TWICE DAILY 180 tablet 3 05/07/2023 Active Start: 09-20-2019 End: 12-06-2022 take 1 tablet by mouth twice daily Eliquis 2.5 mg tablet Indications: ASHD (arteriosclerotic heart disease) TAKE 1 TABLET BY MOUTH TWICE DAILY 180 tablet 3 05/07/2023 Active aspirin 81 mg delayed release oral tablet (20 sources) Nonsteroidal Anti-inflammatory Drug Start: 07-10-2016 take 1 tablet by mouth once daily ASPIRIN EC 81 MG TBEC One tablet by mouth daily ASPIRIN [id number] Claire Beauchamp RN Start: 06-22-2016 End: 12-02-2022 aspirin, enteric coated (ASP IRIN, ENTERIC COATED) 81 mg EC tablet once every 24 hours. 07/10/2016 Active Start: 06-22-2016 End: 12-06-2022 take 81 mg by mouth at bedtime Aspirin Discontinued 81 MG PO AT BEDTIME June 21, 2016 11:00pm December 06, 2022 7:26am Aspirin 81 MG TA BS Quantity: 0 Refills: 0 Ordered: 09-Jul-2013 DO Active Aspirin 81 MG TA BS Refills: 0 Active atorvastatin 80 mg oral tablet (20 sources) HMG-CoA Reductase Inhibitor Start: 11-22-2023 take 1 tablet by mouth once daily atorvastatin (Lipitor) 80 mg tablet Indications: ASHD (arteriosclerotic heart disease) TAKE 1 TABLET BY MOUTH ONCE DAILY 90 tablet 3 11/22/2023 Active Start: 06-11-2013 atorvastatin ( Lipitor) 80 mg tablet once every 24 hours. 0 06/22/2016 Active Start: 06-11-2013 End: 06-28-2023 take 1 tablet by mouth once daily atorvastatin (Lipitor) 80 mg tablet Indications: ASHD (arteriosclerotic heart disease) Take 1 tablet (80 mg) by mouth once daily. 90 tablet 3 06/28/2022 Active azithromycin 250 mg oral tablet (1 source) Macrolide Antimicrobial Start: 06-02-2022 End: 06-07-2022 azithromycin (Zithromax) 250 mg tablet Indications: Acute cough , Upper respiratory tract infection, unspecified type Take 2 tablets (500 mg) by mouth once daily for 1 day, THEN 1 tablet (250 mg) once daily for 4 days. Take 2 tabs (500 mg) by mouth today, than 1 daily for 4 days.. 6 tablet 0 06/02/2022 06/07/2022 Active benzonatate 100 mg oral capsule (1 source) Non-narcotic Antitussive Start: 06-02-2022 End: 07-02-2022 take 1 capsule by mouth three times daily as needed for cough benzonatate (Tessalon) 100 mg capsule Indications: Acute cough , Upper respiratory tract infection, unspecified type Take 1 capsule (100 mg) by mouth 3 times a day as needed for cough. Do not crush or chew. 42 capsule 0 06/02/2022 07/02/2022 Active 24 hr buPROPion hydrochloride 150 mg extended release oral tablet (20 sources) Aminoketone Start: 06-25-2023 End: 06-24-2024 take 1 tablet by mouth once daily in the morning buPROPion XL (Wellbutrin XL) 150 mg 24 hr tablet Indications: Depression, unspecified depression type Take 1 tablet (150 mg) by mouth once daily in the morning. Do not crush, chew, or split. 90 tablet 3 06/25/2023 06/24/2024 Active Start: 11-30-2022 take 300 mg by mouth once viola y 300 mg, oral, Daily, First dose on Debora 11/30/22 at 0900 Do not crush, chew, or split. Start: 06-28-2022 End: 12-02-2022 take 1 tablet by mouth once daily buPROPion XL (Wellbutrin XL) 300 mg 24 hr tablet Indications: Depression, unspecified depression type Take 1 tablet (300 mg) by mouth once daily. 90 tablet 3 06/28/2022 12/02/2022 Discontinued (Stop Taking at Discharge) Start: 08-02-2021 take 1 tablet by eliot th every twenty-four hours buPROPion XL (WELLBUTRIN XL) 300 mg 24 hr tablet Take by mouth every 24 hours. 08/02/2021 Active Start: 08-02-2021 take 1 tablet by eliot th once daily buPROPion XL (Wellbutrin XL) 300 mg 24 hr tablet Take 1 tablet (300 mg) by mouth once daily. 0 08/02/2021 Active calcium carbonate 625 mg / cholecalciferol 125 unt oral tablet (3 sources) Vitamin D End: 11-29-2022 take 1 tablet by mouth twice daily at mealtime calcium-cholecalciferol, D3, (OSCAL+D 250) 250 mg-3.125 mcg (125 unit) per tablet Take 1 tablet by mouth two times a day with meals. Active carvedilol 25 mg oral tablet (20 sources) alpha-Adren ergic Silvana, beta-Adrene rgic Silvana Start: 07-16-2023 take 0.5 tablet by mouth twice daily at mealtime carvedilol (Coreg) 25 mg tablet Indications: Hypertension, unspecified type TAKE ONE-HALF TABLET BY MOUTH TWICE DAILY WITH MEALS 90 tablet 3 07/16/2023 Active Start: 02-22-2023 take 0.5 tablet by m outh twice daily at mealtime carvedilol (Coreg) 25 mg tablet Indications: Hypertension, unspecified type Take 0.5 tablets (12.5 mg) by mouth 2 times a day with meals. 45 tablet 3 02/22/2023 Active Start: 11-29-2022 End: 11-29-2022 take 1 tablet by mouth every twelve hours 25 mg, oral, Every 12 hours, First dose on Sun11/29/22 at 2100 Start: 11-03-2019 End: 12-06-2022 take 12.5 mg by mouth twice daily Carvedilol Discontinued 12.5 MG PO TWICE A DAY November 03, 2019 5:10pm December 06, 2022 7:26am Start: 07-10-2016 End: 12-02-2022 carvedilol (COREG) 25 mg tab let every 12 hours. 07/10/2016 Active Start: 06-22-2016 End: 07-05-2017 take 1 tablet by mouth twice daily COREG 12.5 MG TABS One tablet by mouth twice daily CARVEDILOL [id number] Claire Beauchamp RN Start: 06-11-2013 take 0.5 tablet by m outh twice daily Carvedilol 25 MG Oral Tablet Take one-half tablet by mouth twice daily Quantity: 90 Refills: 3 Ordered: 09-Nov-2021 Eitan Price MD Start : 11-Jun-2013 Active Start: 06-11-2013 End: 11-03-2019 take 25 mg by mouth twice daily Carvedilol Discontinue d 25 MG PO TWICE A DAY July 04, 2017 11:00pm November 03, 2019 5:11pm clotrimazole 10 mg/ml topical cream (2 sources) Azole Antifungal Start: 07-09-2013 clotrimazole (LOTRIMIN) 1 % cream Clotrimazole 1 % External Cream APPLY 2-3 TIMES DAILY TO AFFECTED AREA(S). Quantity: 30 Refills: 0 Eitan Price MD Start : 09-Jul-2013 Active 07/09/2013 Active FLUoxetine 20 mg oral capsule (6 sources) Serotonin Reuptake Inhibitor Start: 02-03-2022 End: 12-02-2023 take 1 capsule by mouth once daily FLUoxetine (PROzac) 20 mg capsule Indications: Depression, unspecified depression type Take 1 capsule (20 mg) by mouth once daily. 30 capsule 1 10/03/2023 12/02/2023 Active furosemide 40 mg oral tablet (20 sources) Loop Diuretic Start: 06-28-2022 End: 12-02-2022 take 40 mg by mouth once daily 40 mg, oral, Daily, First dose on Sun11/29/22 at 1755 Start: 12-14-2021 End: 12-06-2022 take 60 mg by mouth once daily Furosemide Discontinued 60 MG PO DAILY December 14, 2021 2:12pm December 06, 2022 7:25am Start: 07-08-2018 End: 11-14-2018 take 20 mg by mouth once daily Furosemide Discontinued 20 MG PO DAILY July 07, 2018 11:00pm November 14, 2018 8:35am Start: 07-05-2018 End: 12-14-2021 take 40 mg by mouth once daily Furosemide Discontinued 40 MG PO DAILY November 13, 2018 11:00pm December 14, 2021 2:15pm Start: 07-05-2018 furosemide (La six) 40 mg tablet once every 24 hours. 0 07/05/2018 Active Start: 07-05-2018 take 1.5 tablets by mouth once daily Furosemide 40 MG Oral Tablet TAKE 1.5 TABLET Daily Quantity: 0 Refills: 0 Ordered: 14-Dec-2021 DO Start : 14-Dec-2021 Active Start: 07-05-2018 take 2 tablets by [facility] once daily Furosemide 40 MG Oral Tablet TAKE 2 TABLET BY MOUTH EVERY DAY Quantity: 90 Refills: 3 Ordered: 22-Sep-2021 Eitan Price MD Start : 05-Jul-2018 Active 1 ml hydrALAZINE hydrochloride 20 mg/ml injection (4 sources) Arteriolar Vasodilator Start: 11-29-2022 End: 11-29-2022 take 5 mg intravenously every six hours as needed hydrALAZINE (Apresoline) injection 5 mg Start: 11-29-2022 End: 11-29-2022 hydrALAZINE (Apresoline) inj ection 5 mg Start: 11-29-2022 End: 11-29-2022 hydrALAZINE (Apresoline) inj ection - Omnicell Override Pull hydrOXYzine hydrochloride 10 mg oral tablet (14 sources) Antihistamine Start: 08-24-2021 take 1 tablet by mouth three times daily as needed hydrOXYzine HCL (Atarax) 10 mg tablet Take 1 tablet (10 mg) by mouth 3 times a day as needed. 0 08/24/2021 Active LORazepam 0.5 mg oral tablet (3 sources) Benzodiazepine Start: 07-04-2023 take 1 tablet by mouth three times daily as needed for anxiety LORazepam (Ativan) 0.5 mg tablet Indications: Anxiety Take 1 tablet (0.5 mg) by mouth 3 times a day as needed for anxiety. 30 tablet 07/04/2023 Active losartan potassium 100 mg oral tablet (20 sources) Angiotensin 2 Receptor Silvana Start: 11-30-2022 take 100 mg by mouth once daily 100 mg, oral, Daily, First dose on Debora 11/30/22 at 0900 Start: 12-03-2017 End: 09-06-2023 take 1 tablet by mouth once daily losartan (Cozaar) 100 mg tablet Indications: Essential hypertension TAKE 1 TABLET BY MOUTH DAILY 90 tablet 3 05/07/2023 Active Start: 07-05-2017 End: 12-14-2021 take 1 tablet by mouth once daily Losartan (Cozaar) 25 mg tablet Discontinued 25 MG PO daily December 03, 2017 2:07pm December 18, 2017 2:13pm losartan (Cozaar ) 25 mg tablet once every 24 hours. 0 Active metFORMIN hydrochloride 500 mg oral tablet (20 sources) Biguanide Start: 08-08-2023 take 1 tablet by mouth once daily at mealtime metFORMIN (Glucophage) 500 mg tablet Indications: Type 2 diabetes mellitus without complication, without long-term current use of insulin (Multi) TAKE 1 TABLET BY MOUTH ONCE DAILY WITH A MEAL 90 tablet 3 08/08/2023 Active Start: 06-28-2022 End: 06-28-2023 take 1 tablet by mouth once daily at mealtime metFORMIN (Glucophage) 500 mg tablet Indications: Type 2 diabetes mellitus without complication, without long-term current use of insulin (Multi) Take 1 tablet (500 mg) by mouth once daily with a meal. 30 tablet 11 06/28/2022 Active Start: 06-22-2016 metFORMIN (Glu cophage) 500 mg tablet every 12 hours. 0 06/22/2016 Active Start: 07-10-2013 End: 12-06-2022 metFORMIN (GLUCOPHAGE) 500 m g tablet two times a day as needed. 07/10/2013 Active methylPREDNISolone (1 source) Corticosteroid Start: 06-02-2022 End: 06-09-2022 methylPREDNISolone (Medrol Dospak) 4 mg tablets Indications: Acute cough , Upper respiratory tract infection, unspecified type Take as directed on package. 21 tablet 0 06/02/2022 06/09/2022 Active 5 ml metoprolol tartrate 1 mg/ml injection (1 source) beta-Adrenergic Silvana Start: 11-30-2022 take 5 mg intravenously every six hours as needed metoprolol tartrate (Lopressor) injection 5 mg montelukast 10 mg oral tablet (20 sources) Leukotriene Receptor Antagonist Start: 08-08-2023 take 1 tablet by mouth once daily at bedtime montelukast (Singulair) 10 mg tablet Indications: Chronic rhinitis TAKE 1 TABLET BY MOUTH ONCE DAILY AT BEDTIME 90 tablet 3 08/08/2023 Active Start: 06-22-2016 montelukast (S ingulair) 10 mg tablet once every 24 hours. 0 06/22/2016 Active Start: 02-27-2013 End: 06-28-2023 take 1 tablet by mouth once daily at bedtime montelukast (Singulair) 10 mg tablet Indications: Chronic rhinitis Take 1 tablet (10 mg) by mouth once daily at bedtime. 90 tablet 3 06/28/2022 Active 200 ml niCARdipine hydrochloride 0.2 mg/ml injection (1 source) Dihydropyridine Calcium Channel Silvana Start: 11-29-2022 niCARdipine (Cardene) 40 mg in sodium chloride 200 mL (0.2 mg/mL) infusion (premix) 24 hr NIFEdipine 60 mg extended release oral tablet (1 source) Dihydropyridine Calcium Channel Silvana Start: 12-01-2022 NIFEdipine ER (Adalat CC) 24 hr tablet 60 mg omeprazole 20 mg delayed release oral capsule (20 sources) Proton Pump Inhibitor Start: 03-01-2022 omeprazo le (PRILOSEC) 20 mg capsule Take 20 mg by mouth. 03/01/2022 Active Start: 07-10-2016 take 1 tablet by eliot th once daily PRILOSEC 20 MG CPDR One tablet by mouth daily OMEPRAZOLE [id number] Claire Beauchamp RN Start: 06-22-2016 End: 07-08-2018 take 20 mg by mouth once daily Omeprazole Active 20 MG PO DAILY December 07, 2020 11:00pm oxyCODONE hydrochloride 5 mg oral tablet (2 sources) Opioid Agonist Start: 11-30-2022 take 1 tablet by mouth every four hours as needed oxyCODONE (Roxicodone) immediate release tablet 10 mg Start: 11-30-2022 take 1 tablet by eliot th every four hours as needed oxyCODONE (Roxicodone) immediate release tablet 5 mg pantoprazole 40 mg delayed release oral tablet (5 sources) Proton Pump Inhibitor Start: 11-30-2022 take 40 mg by mouth once daily before breakfast 40 mg, oral, Daily before breakfast, First dose on Debora 11/30/22 at 0700 Do not crush, chew, or split. Start: 10-24-2019 End: 12-08-2020 take 40 mg by mouth once daily Pantoprazole Discontinu ed 40 MG PO DAILY October 23, 2019 11:00pm December 08, 2020 12:21pm Start: 07-08-2018 pantoprazole ( ProtoNix) 40 mg EC tablet once every 24 hours. 0 07/08/2018 Active Start: 07-08-2018 End: 08-07-2019 take 40 mg by mouth once daily Pantoprazole Discontinu ed 40 MG PO DAILY July 07, 2018 11:00pm August 07, 2019 2:24pm Start: 07-02-2018 take 1 tablet by eliot once daily Pantoprazole Sodium 40 MG Oral Tablet Delayed Release TAKE 1 TABLET DAILY. Refills: 3 Start : 02-Jul-2018 Active vitamin b12 1 mg oral tablet (20 sources) Vitamin B12 Start: 12-28-2014 take 1 tablet by mouth once daily cyanocobalamin (Vitamin B-12) 1,000 mcg tablet Take 1 tablet (1,000 mcg) by mouth once daily. 12/28/2014 Active Completed/Discontinued Medications Medication Drug Class(es) Dates Sig (Normalized) Sig (Original) ALPRAZolam 0.25 mg oral tablet (20 sources) Benzodiazepine Start: 07-15-2019 End: 10-25-2023 take 0.25 mg by mouth four times daily Alprazolam Discontinued 0.25 MG PO 4 TIMES DAILY July 11, 2021 11:00pm December 14, 2021 2:14pm bacitracin zinc 0.5 unt/mg topical ointment (1 source) Start: 11-29-2022 End: 11-29-2022 bacitracin ointment cefdinir 300 mg oral capsule (2 sources) Cephalosporin Antibacterial Start: 09-11-2019 End: 10-24-2019 take 300 mg by mouth twice daily Cefdinir Discontinued 300 MG PO TWICE A DAY September 10, 2019 11:00pm October 24, 2019 12:04pm Start: 07-29-2019 Cefdinir 300 M G Oral Capsule Quantity: 28 Refills: 0 Ordered: 29-Jul-2019 DO Start : 29-Jul-2019 Complete cephalexin 500 mg oral capsule (1 source) Cephalosporin Antibacterial Start: 07-06-2016 End: 07-05-2017 take 500 mg by mouth every eight hours Cephalexin Discontinued 500 MG PO EVERY 8 HOURS July 05, 2016 11:00pm July 05, 2017 12:35pm cholecalciferol 0.025 mg oral tablet (1 source) Vitamin D Start: 06-21-2022 End: 12-06-2022 take 25 ug by mouth once daily Cholecalciferol (Vitamin D3) Discontinued 25 MCG PO DAILY June 20, 2022 11:00pm December 06, 2022 7:26am citalopram 40 mg oral tablet (20 sources) Serotonin Reuptake Inhibitor Start: 05-28-2023 End: 11-29-2023 take 1 tablet by mouth once daily citalopram (CeleXA) 40 mg tablet Indications: Depression, unspecified depression type Take 1 tablet (40 mg) by mouth once daily. 90 tablet 3 05/28/2023 11/29/2023 Discontinued (Therapy completed) Start: 11-30-2022 take 40 mg by mouth every twenty-four hours 40 mg, oral, Every 24 hours, First dose on Debora 11/30/22 at 0900 Start: 06-28-2022 End: 12-02-2022 take 1 tablet by mouth every twenty-four hours citalopram (CeleXA) 40 mg tablet Indications: Depression, unspecified depression type Take 1 tablet (40 mg) by mouth once every 24 hours. 90 tablet 3 06/28/2022 12/02/2022 Discontinued (Stop Taking at Discharge) Start: 12-08-2020 End: 07-12-2021 take 20 mg by mouth once daily Citalopram Discontinued 20 MG PO DAILY December 07, 2020 11:00pm July 12, 2021 1:08pm Start: 07-08-2018 End: 10-24-2019 take 20 mg by mouth once daily Citalopram Discontinued 20 MG PO DAILY July 07, 2018 11:00pm October 24, 2019 12:03pm Start: 06-22-2016 End: 07-08-2018 take 1 tablet by mouth once daily CELEXA 20 MG TABS On e tablet by mouth daily CITALOPRAM HYDROBROMIDE [id number] Claire Beauchamp RN Start: 02-27-2013 End: 12-06-2022 take 1 tablet by mouth once daily citalopram (CeleXA) 40 mg tablet Indications: Depression, unspecified depression type Take 1 tablet (40 mg) by mouth once daily. 90 tablet 3 05/28/2023 Active Start: 02-27-2013 citalopram (Ce Naima) 40 mg tablet once every 24 hours. 0 02/27/2013 Active clopidogrel 75 mg oral tablet (12 sources) P2Y12 Platelet Inhibitor Start: 07-06-2016 clopidogrel (Plavix) 75 mg tablet once every 24 hours. 0 07/06/2016 Active Start: 06-29-2016 End: 09-20-2019 take 1 tablet by mouth once daily Clopidogrel Bisulfate 75 MG Oral Tablet TAKE 1 TABLET DAILY. Quantity: 90 Refills: 3 Eitan Price MD Start : 14-Jul-2016 Active docusate sodium 50 mg / sennosides, detention 8.6 mg oral tablet (1 source) Start: 06-29-2016 End: 07-06-2016 take 1 tablet by mouth twice daily Sennosides-Docusate Sodium (Stool Softener-Stimulant Laxat) 1 TABLET tablet Discontinued 1 TABLET PO TWICE A DAY June 28, 2016 11:00pm July 06, 2016 9:03pm famotidine 20 mg oral tablet (20 sources) Histamine-2 Receptor Antagonist Start: 12-08-2020 End: 07-12-2021 take 20 mg by mouth once daily Famotidine Discontinued 20 MG PO DAILY December 07, 2020 11:00pm July 12, 2021 1:08pm Start: 11-10-2020 End: 12-14-2021 take 20 mg by mouth twice daily Famotidine Discontinued 20 MG PO TWICE A DAY July 12, 2021 1:08pm December 14, 2021 2:14pm ferrous sulfate 325 mg oral tablet (18 sources) Start: 11-09-2021 take 1 tablet by mouth twice daily at mealtime ferrous sulfate 325 (65 Fe) MG tablet Take 1 tablet (325 mg) by mouth 2 times a day with meals. 0 11/09/2021 Active Start: 07-10-2016 End: 06-28-2023 take 1 tablet by mouth once daily at mealtime ferrous sulfate 325 (65 Fe) MG tablet Indications: Anemia, unspecified type Take 1 tablet (325 mg) by mouth once daily with a meal. 90 tablet 3 06/28/2022 06/28/2023 Fish Oil 500 MG Oral Capsule (3 sources) Start: 07-05-2018 take 3 capsules by mouth once daily Fish Oil 500 MG Oral Capsule TAKE 3 CAPSULES DAILY Quantity: 0 Refills: 0 Ordered: 05-Jul-2018 DO Start : 05-Jul-2018 Active End: 11-29-2022 omega-3 (Fish Oil) 60-90-500 mg capsule once every 24 hours. 0 11/29/2022 Discontinued (Entered in Error) omega-3 (Fish Oi l) 60-90-500 mg capsule once every 24 hours. 0 Active 3 ml insulin aspart, human 100 unt/ml pen injector (1 source) Insulin Analog Start: 06-29-2016 End: 07-06-2016 Insulin Aspart U-100 (Novolog Flexpen U-100 Insulin) 100 UNITS/ML Flexpen Discontinued 0 UNITS SC BEFORE MEALS AND AT BEDTIME June 28, 2016 11:00pm July 06, 2016 9:02pm 10 ml lidocaine hydrochloride 10 mg/ml injection (4 sources) Antiarrhythmic, Amide Local Anesthetic Start: 11-13-2023 End: 11-13-2023 lidocaine (PF) 10 mg/mL (1 %) 5 mL injection (XYLOCAINE) Start: 11-13-2023 End: 11-13-2023 5 mL, Injection - FOR ORTHO USE ONLY, ONCE, 1 dose, Starting on Sun11/13/23 at 0947, Until Sun11/13/23 at 0947 lisinopril 40 mg oral tablet (13 sources) Angiotensin Converting Enzyme Inhibitor Start: 12-18-2017 End: 12-18-2017 take 40 mg by mouth once daily Lisinopril Discontinued 40 MG PO DAILY December 18, 2017 12:00am December 18, 2017 2:12pm Start: 06-29-2016 End: 07-05-2017 take 1 tablet by mouth once daily LISINOPRIL 40 MG TABS One tablet by mouth daily LISINOPRIL [id number] Oscar Rondon MD Start: 12-06-2015 End: 06-29-2016 take 20 mg by mouth once daily Lisinopril Discontinued 20 MG PO DAILY June 21, 2016 11:00pm June 29, 2016 7:31am melatonin 3 mg oral tablet (16 sources) Start: 06-29-2016 End: 07-05-2017 take 1 tablet by mouth at bedtime as needed MELATONIN 3 MG TABS One tablet by mouth at bedtime. As needed MELATONIN [id number] Oscar Rondon MD menthol 0.0044 mg/mg / zinc oxide 0.2 mg/mg topical ointment (1 source) Start: 07-06-2016 End: 07-05-2017 Menthol-Zinc Oxide Discontinued 1 APPLIC TOPICAL THREE TIMES A DAY July 05, 2016 11:00pm July 05, 2017 12:36pm methylPREDNISolone 4 MG Oral Tablet Therapy Pack (1 source) Start: 01-09-2022 methylPREDNISolone 4 MG Oral Tablet Therapy Pack UAD Quantity: 1 Refills: 0 Ordered: 09-Jan-2022 Eitan Price MD Start : 09-Jan-2022 Active metroNIDAZOLE 500 mg oral tablet (1 source) Nitroimidazole Antimicrobial Start: 07-29-2019 metroNIDAZOLE 500 MG Oral Tablet Quantity: 42 Refills: 0 Ordered: 29-Jul-2019 DO Start : 29-Jul-2019 Complete [place]-3 Fatty Acids (Fish Oil Concentrate) 1,000 mg capsule (1 source) Start: 07-08-2018 End: 12-08-2020 take 1 capsule by mouth three times daily [place]-3 Fatty Acids (Fish Oil Concentrate) 1,000 mg capsule Discontinued 1000 MG PO THREE TIMES A DAY July 07, 2018 11:00pm December 08, 2020 12:21pm penciclovir 10 mg/ml topical cream (1 source) Herpesvirus Nucleoside Analog DNA Polymerase Inhibitor Start: 03-14-2013 Denavir 1 % External Cream Quantity: 5 Refills: 0 Start : 14-Mar-2013 Active POLYETHYLENE GLYCOL 3350 (2 sources) Osmotic Laxative Start: 07-10-2016 MIRALAX PACK Take as directed POLYETHYLENE GLYCOL 3350 [id number] Claire Beauchamp RN Start: 07-06-2016 End: 07-05-2017 take 17 g by mouth once daily Polyethylene Glycol 3350 Discontinued 17 GM PO DAILY July 05, 2016 11:00pm July 05, 2017 12:36pm POLYETHYLENE GLYCOL 3350 (13 sources) Start: 07-10-2016 End: 07-11-2016 MIRALAX PACK Take as directe d POLYETHYLENE GLYCOL 3350 [id number] Oscar Rondon MD Start: 07-10-2016 MIRALAX PACK T mily as directed POLYETHYLENE GLYCOL 3350 [id number] Claire Beauchamp RN POLYSACCHARIDE IRON COMPLEX (9 sources) Start: 07-10-2016 take 1 tablet by mouth once daily FERREX 150 150 MG CAPS One tablet by mouth daily POLYSACCHARIDE IRON COMPLEX [id number] Claire Beauchamp RN Start: 07-06-2016 End: 12-18-2017 take 1 tablet by mouth once daily FERREX 150 150 MG CAPS One tablet by mouth daily POLYSACCHARIDE IRON COMPLEX [id number] Claire Beauchamp RN sulfamethoxazole 400 mg / trimethoprim 80 mg oral tablet (2 sources) Dihydrofolate Reductase Inhibitor Antibacterial, Sulfonamide Antimicrobial Start: 10-06-2021 take 1 tablet by mouth twice daily Sulfamethoxazole-Trimethoprim 400-80 MG Oral Tablet TAKE 1 TABLET TWICE DAILY. Quantity: 6 Refills: 0 Ordered: 06-Oct-2021 Eitan Price MD Start : 06-Oct-2021 Active Start: 10-03-2021 take 1 tablet by eliot th twice daily Sulfamethoxazole-Trimethoprim 400-80 MG Oral Tablet TAKE 1 TABLET TWICE DAILY. Quantity: 6 Refills: 0 Ordered: 03-Oct-2021 Eitan Price MD Start : 03-Oct-2021 Active 1 ml triamcinolone acetonide 40 mg/ml injection (4 sources) Corticosteroid Start: 11-13-2023 End: 11-13-2023 triamcinolone acetonide 40 mg injection (KeNALog 40) Start: 11-13-2023 End: 11-13-2023 80 mg, Injection - FOR ORTHO USE ONLY, ONCE, 1 dose, Starting on Sun11/13/23 at 0947, Until Sun11/13/23 at 0947 Problems Active Problems Problem Classification Problem Date Documented Da te Episodic/Chronic Acute myocardial infarction (20 sources) Non-ST elevation (NSTEMI) myocardial infarction; Translations: [Acute non-ST segment elevation myocardial infarction] Onset: 7 07-10-2016 Chronic Anxiety disorders (20 sources) Anxiety; Translations: [Anxiety state, unspecified] Onset: 3 06-01-2022 Chronic Asthma (10 sources) Asthma; Translations: [Unspecified asthma, uncomplicated] Onset: 3 06-01-2022 Chronic Cancer of colon (20 sources) Malignant tumor of colon; Translations: [Malignant neoplasm of colon, unspecified site] Chronic Cardiac dysrhythmias (20 sources) Nonsustained ventricular tachycardia ; Translations: [Paroxysmal ventricular tachycardia] Onset: 7 07-10-2016 Chronic Chronic kidney disease (20 sources) Chronic kidney disease stage 2; Translations: [Chronic kidney disease, Stage II (mild)] Onset: 3 06-01-2022 Chronic Chronic obstructive pulmonary disease and bronchiectasis (3 sources) Acute exacerbation of chronic obstructive airways disease; Translations: [Chronic obstructive pulmonary disease with (acute) exacerbation] Onset: 4 10-04-2023 Chronic Congestive heart failure; nonhypertensive (3 sources) Heart failure with reduced ejection fraction; Translations: [Unspecified systolic (congestive) heart failure] Onset: 4 10-04-2023 Chronic Coronary atherosclerosis and other heart disease (20 sources) Atherosclerotic heart disease of [place] coronary artery without angina pectoris; Translations: [Coronary arteriosclerosis] Onset: 7 07-10-2016 Chronic Deficiency and other anemia (20 sources) Anemia; Translations: [Anemia, unspecified] Onset: 3 06-02-2022 Episodic Diabetes mellitus without complication (20 sources) Diabetes mellitus; Translations: [Diabetes mellitus without mention of complication, type II or unspecified type, not stated as uncontrolled] Onset: 6 06-02-2022 Chronic Disorders of lipid metabolism (20 sources) Hyperlipidemia; Translations: [Other and unspecified hyperlipidemia] Onset: 6 07-10-2016 Chronic Comment on above: Added by Problem Елена t Migration; 2012-12-16; Moved to Suppressed Dec 27 2012 9:07PM; Diverticulosis and diverticulitis (20 sources) Diverticulitis of large intestine; Translations: [Diverticulitis of colon (without mention of hemorrhage)] Onset: 6 Resolved: 0 06-01-2022 Chronic Esophageal disorders (20 sources) Gastroesophageal reflux disease; Translations: [Esophageal reflux] Onset: 6 06-01-2022 Chronic Essential hypertension (20 sources) Hypertensive disorder; Translations: [Essential hypertension] Onset: 6 Resolved: 4 07-10-2016 Chronic Comment on above: Added by Problem Lis t Migration; 2012-12-16; Moved to Suppressed Dec 27 2012 9:07PM; Heart valve disorders (20 sources) Mitral valve regurgitation; Translations: [Mitral valve disorders] Onset: 3 06-01-2022 Chronic Mood disorders (20 sources) Depressive disorder; Translations: [Depressive disorder, not elsewhere classified] Onset: 3 06-01-2022 Chronic Mood disorders (2 sources) Mood disorders; Translations: [Depression, unspecified] Onset: 3 Nutritional deficiencies (10 sources) Vitamin D deficiency; Translations: [Vitamin D deficiency, unspecified] Onset: 3 06-02-2022 Chronic Osteoarthritis (20 sources) Osteoarthritis of foot joint; Translations: [Osteoarthrosis, unspecified whether generalized or localized, ankle and foot] Onset: 3 06-01-2022 Chronic Other and ill-defined heart disease (1 source) Other ill-defined heart diseases; Translations: [Other ill-defined heart diseases] Onset: 4 Chronic Other connective tissue disease (16 sources) Pain in lower limb; Translations: [Pain in limb] Episodic Other ear and sense organ disorders (3 sources) Sensorineural hearing loss, bilateral; Translations: [Sensorineural hearing loss, bilateral] 08-31-2022 Chronic Other gastrointestinal disorders (20 sources) Personal history of other diseases of the digestive system; Translations: [History of gastroesophageal reflux disease] Episodic Other lower respiratory disease (1 source) Cough; Translations: [Acute cough] 06-02-2022 Episodic Other nervous system disorders (4 sources) Other chronic pain; Translations: [Other chronic pain] Onset: 4 Chronic Other nutritional; endocrine; and metabolic disorders (15 sources) Body mass index (BMI) 39.0-39.9, adult; Translations: [Body mass index (BMI) 40.0-44.9, adult] Onset: 7 09-19-2016 Chronic Other nutritional; endocrine; and metabolic disorders (1 source) Body mass index (BMI) 40.0-44.9, adult; Translations: [Body mass index (BMI) 40.0-44.9, adult] Onset: 7 07-10-2016 Chronic Other nutritional; endocrine; and metabolic disorders (20 sources) Severe obesity; Translations: [Morbid obesity] Onset: 3 06-01-2022 Chronic Other nutritional; endocrine; and metabolic disorders (1 source) Obesity; Translations: [Morbid (severe) obesity due to excess calories] Onset: 3 06-01-2022 Chronic Other upper respiratory disease (20 sources) Rhinitis; Translations: [Chronic rhinitis] Onset: 3 06-01-2022 Chronic Otitis media and related conditions (1 source) Dysfunction of bilateral eustachian tubes; Translations: [Unspecified Eustachian tube disorder, bilateral] 08-23-2022 Episodic Residual codes; unclassified (20 sources) Obstructive sleep apnea syndrome; Translations: [Obstructive sleep apnea (adult)(pediatric)] Onset: 3 06-01-2022 Chronic Screening and history of mental health and substance abuse codes (20 sources) H/O: depression; Translations: [Personal history of other mental disorders] Episodic Spondylosis; intervertebral disc disorders; other back problems (1 source) Other spondylosis with radiculopathy, lumbar region; Translations: [Other spondylosis with radiculopathy, lumbar region] Onset: 3 Chronic Unclassified (7 sources) Placement of stent in coronary artery ; Translations: [Presence of coronary angioplasty implant and graft] Onset: 7 07-10-2016 Unclassified (1 source) Long-term drug therapy; Translations: [Other terminal gauger (current) drug therapy] Onset: 7 07-10-2016 Unclassified (2 sources) Acute cough; Translations: [Acute cough] Onset: 3 Unclassified (2 sources) Traumatic subdural hemorrhage with loss of consciousness status unknown, initial encounter ([facility]); Translations: [Traumatic subdural hemorrhage with loss of consciousness status unknown, initial encounter ([facility])] Onset: 3 Past or Other Problems Problem Classification Problem Date Documented Da te Episodic/Chronic Abdominal hernia (10 sources) Hiatal hernia; Translations: [Diaphragmatic hernia without obstruction or gangrene] Onset: 3 06-01-2022 Episodic Abdominal pain (13 sources) Epigastric pain; Translations: [Abdominal pain, epigastric] Onset: 3 06-01-2022 Episodic Acute cerebrovascular disease (16 sources) Hemorrhage into subdural space of neuraxis; Translations: [Nontraumatic subdural hemorrhage, unspecified] Onset: 3 Resolved: 3 11-29-2022 Chronic Acute posthemorrhagic anemia (18 sources) Acute posthemorrhagic anemia; Translations: [Acute posthemorrhagic anemia] Onset: 7 07-10-2016 Episodic Cancer of colon (10 sources) History of malignant neoplasm of colon; Translations: [Personal history of other malignant neoplasm of large intestine] Onset: 3 06-01-2022 Episodic Coronary atherosclerosis and other heart disease (2 sources) Presence of coronary angioplasty implant and graft; Translations: [Percutaneous transluminal coronary angioplasty status] Onset: 7 12-06-2022 Episodic Deficiency and other anemia (20 sources) Pernicious anemia; Translations: [Pernicious anemia] Onset: 3 06-01-2022 Episodic Deficiency and other anemia (3 sources) Anemia, unspecified; Translations: [Anemia, unspecified] Onset: 3 Episodic E Codes: Fall (3 sources) Fall; Translations: [Unspecified fall, initial encounter] Onset: 3 11-29-2022 Episodic Genitourinary symptoms and ill-defined conditions (20 sources) Pyuria; Translations: [Other nonspecific findings on examination of urine] Onset: 3 Resolved: 0 06-01-2022 Episodic Nonspecific chest pain (11 sources) Chest pain; Translations: [Chest pain, unspecified] Onset: 3 06-01-2022 Episodic Nutritional deficiencies (20 sources) Iron deficiency; Translations: [Iron deficiency] Onset: 2 Episodic Other aftercare (7 sources) Other alf (current) drug therapy; Translations: [Other terminal gauger (current) drug therapy] Onset: 7 07-10-2016 Episodic Other and unspecified benign neoplasm (20 sources) Benign polyp of colon; Translations: [Benign neoplasm of colon] Onset: 3 06-01-2022 Episodic Other circulatory disease (20 sources) H/O: heart failure; Translations: [Personal history of other diseases of circulatory system] Resolved: 0 Episodic Other connective tissue disease (20 sources) H/O: back problem; Translations: [Personal history of other musculoskeletal disorders] Resolved: 1 Episodic Other connective tissue disease (10 sources) Pain in bilateral legs; Translations: [Pain in right leg] Onset: 3 06-01-2022 Episodic Other gastrointestinal disorders (20 sources) H/O: gastrointestinal disease; Translations: [Personal history of other diseases of digestive system] Resolved: 1 Episodic Other lower respiratory disease (20 sources) Cough; Translations: [Cough] Onset: 3 06-01-2022 Episodic Other lower respiratory disease (20 sources) Dyspnea on exertion; Translations: [Other respiratory abnormalities] Onset: 3 Resolved: 0 06-01-2022 Episodic Other lower respiratory disease (20 sources) H/O: bronchitis; Translations: [Personal history of other diseases of respiratory system] Resolved: 5 Episodic Other non-traumatic joint disorders (6 sources) Pain in right knee; Translations: [Pain in joint, lower leg] Onset: 4 Episodic Other non-traumatic joint disorders (4 sources) Pain in left knee; Translations: [Pain in left knee] Onset: 4 Episodic Other screening for suspected conditions (not mental disorders or infectious disease) (20 sources) Serum creatinine abnormal; Translations: [Other nonspecific findings on examination of blood] Onset: 3 06-02-2022 Episodic Other skin disorders (20 sources) Eruption; Translations: [Rash and other nonspecific skin eruption] Resolved: 5 Episodic Other skin disorders (1 source) Localized swelling, mass and lump, lower limb; Translations: [Localized swelling, mass and lump, right lower limb] Onset: 2 06-01-2022 Episodic Other skin disorders (9 sources) Disorder of right lower extremity; Translations: [Localized swelling, mass and lump, right lower limb] Onset: 2 06-01-2022 Episodic Other upper respiratory infections (13 sources) Upper respiratory infection; Translations: [Acute upper respiratory infection, unspecified] Onset: 3 Resolved: 3 06-02-2022 Episodic Pleurisy; pneumothorax; pulmonary collapse (20 sources) Bilateral pleural effusion; Translations: [Unspecified pleural effusion] Onset: 3 Resolved: 5 Episodic Residual codes; unclassified (20 sources) History of clinical finding in subject; Translations: [Personal history of other specified diseases] Resolved: 5 Episodic Residual codes; unclassified (20 sources) Edema of lower extremity; Translations: [Edema] Onset: 3 Resolved: 2 06-01-2022 Episodic Residual codes; unclassified (1 source) Swelling - edema - symptom; Translations: [Edema, unspecified] Onset: 2 06-01-2022 Episodic Residual codes; unclassified (11 sources) History of cardiac catheterization; Translations: [Other specified postprocedural states] Onset: 0 06-01-2022 Episodic Residual codes; unclassified (9 sources) Edema; Translations: [Edema, unspecified] Onset: 2 06-01-2022 Episodic Spondylosis; intervertebral disc disorders; other back problems (20 sources) Sciatica; Translations: [Sciatica] Onset: 3 06-01-2022 Episodic Superficial injury; contusion (11 sources) Hematoma of groin; Translations: [Contusion of abdominal wall, initial encounter] Onset: 3 06-01-2022 Episodic Unclassified (1 source) History of clinical finding in subject; Translations: [History of abdominal pain] Unclassified (1 source) Acute cough; Translations: [Acute cough] Onset: 3 Unclassified (9 sources) Onset: 3 Resolved: 4 06-28-2022 Unclassified (2 sources) Traumatic subdural hemorrhage with loss of consciousness status unknown, initial encounter ([facility]); Translations: [Traumatic subdural hemorrhage with loss of consciousness status unknown, initial encounter ([facility])] Onset: 3 NEGATED: Highlighted row has not occurred!Residual codes; unclassified (6 sources) Disease Episodic Results Test Name Value Interpretation Reference Range Facility Comprehensive metabolic 2000 panelon 11-26-2023 Albumin BCP dye [Mass/Vol] 3.4 g/dL Normal 3.4-5.0 [facility] Comment on above: Performed By: #### 2 4323-8 #### MARGO Brown ([id number]) [facility] ([facility]) [address] [place] [address]10 ALP [Catalytic activity/Vol] 68 U/L Normal 33-136 [facility] Comment on above: Performed By: #### 2 4323-8 #### MARGO Brown ([id number]) [facility] ([facility]) [address] [place] [address] ALT With P-5'-P [Catalytic activity/Vol] 24 U/L Normal 7-45 [facility] Comment on above: Result Comment: Carlota ents treated with Sulfasalazine may generate falsely decreased results for ALT. Performed By: #### 2 4323-8 #### MARGO Brown ([id number]) [facility] ([facility]) [address] [place] [address] Anion gap [Moles/Vol] 13 mmol/L Normal 10-20 [facility] Comment on above: Performed By: #### 2 4323-8 #### MARGO Brown ([id number]) [facility] ([facility]) [address] [place] [address] AST With P-5'-P [Catalytic activity/Vol] 17 U/L Normal 9-39 [facility] Comment on above: Performed By: #### 2 4323-8 #### MARGO Brown ([id number]) [facility] ([facility]) [id number] [place] [address]704 Bilirubin [Mass/Vol] 0.6 mg/dL Normal 0.0-1.2 [facility] Comment on above: Performed By: #### 2 4323-8 #### MARGO Brown ([id number]) [facility] ([facility]) [id number] [place] [address]2 Calcium [Mass/Vol] 9.0 mg/dL Normal 8.6-10.6 [facility] Comment on above: Performed By: #### 2 4323-8 #### MARGO Brown ([id number]) [facility] ([facility]) [id number] [place] [address]23 Chloride [Moles/Vol] 109 mmol/L High 98-107 [facility] Comment on above: Performed By: #### 2 4323-8 #### MARGO Brown ([id number]) [facility] ([facility]) [id number] [place] [address] 52466 CO2 [Moles/Vol] 26 mmol/L Normal 21-32 [facility] Comment on above: Performed By: #### 2 4323-8 #### MARGO Brown ([id number]) [facility] ([facility]) [id number] [place] [address] 38436 Creatinine [Mass/Vol] 1.64 mg/dL High 0.50-1.05 [facility] Comment on above: Performed By: #### 2 4323-8 #### MARGO Brown ([id number]) [facility] ([facility]) [address] [place] [address] 31280 Glomerular filtration rate/1.73 sq M.predicted 30 mL/min/1.73m*2 Low >60 [facility] Comment on above: Result Comment: Calc ulations of estimated GFR are performed using the 2020 CKD-EPI Study Refit equation without the race variable for the IDMS-Traceable creatinine methods. https://jasn.asnjournals.org/content//ASN.99863 82614 Performed By: #### 2 4323-8 #### MARGO Brown ([id number]) [facility] ([facility]) [address] [place] [address] 83178 Glucose [Mass/Vol] 166 mg/dL High 74-99 [facility] Comment on above: Performed By: #### 2 4323-8 #### MARGO Brown ([id number]) [facility] ([facility]) [address] [place] [address] 34835 Potassium [Moles/Vol] 4.6 mmol/L Normal 3.5-5.3 [facility] Comment on above: Performed By: #### 2 4323-8 #### MARGO Brown ([id number]) [facility] ([facility]) [address] [place] [address] 18370 Protein [Mass/Vol] 5.9 g/dL Low 6.4-8.2 [facility] Comment on above: Performed By: #### 2 4323-8 #### MARGO Brown ([id number]) [facility] ([facility]) [address] [place] [address] 17171 Sodium [Moles/Vol] 143 mmol/L Normal 136-145 [facility] Comment on above: Performed By: #### 2 4323-8 #### MARGO Brown ([id number]) [facility] ([facility]) [address] [place] [address] 45285 Urea nitrogen [Mass/Vol] 22 mg/dL Normal - [facility] Comment on above: Performed By: #### 2 4323-8 #### MARGO Brown ([id number]) [facility] ([facility]) [address] [place] [address] 28166 HbA1c (Bld) [Mass fraction]o n 11-26-2023 Average glucose Estimated from glycated hemoglobin (Bld) [Mass/Vol] 146 mg/dL Normal Not Established [facility] Comment on above: Order Comment: Diagn osis of Cfakfjgj-LlkqpaEdc-Buywpaam: < or = 5.6%Increased risk for developing diabetes: 5.7-6.4%Diagnostic of diabetes: > or = 6.5% Performed By: #### 2 4323-8 #### MARGO Brown ([id number]) [facility] ([facility]) [address] [place] [address] 04423 Hemoglobin A1c/Hemoglobin.to josue 11-26-2023 HbA1c (Bld) [Mass fraction] 6.7 % High See comment [facility] Comment on above: Order Comment: Diagn osis of Qumflupt-EdgymwPoq-Bjckepwt: < or = 5.6%Increased risk for developing diabetes: 5.7-6.4%Diagnostic of diabetes: > or = 6.5% Performed By: #### 2 4323-8 #### MARGO Brown ([id number]) [facility] ([facility]) [address] [place] [address] Echo Completeon 11-14-2023 Echo Complete [facility] [address] [place] [address] Echo Complete 11/14/23 1403 MR#: [id number] Acct: [id number] Name: INGRID DONALD Rep #: [id number] : 1935 87 From: Art Melara MD Attending Dr: Dr. Art Melara MD [facility]: Art Melara MD Date: 11/14/23 Location: [facility] Sex: F C Admitted: Reason For Study: CORONARY ARTERY DISEASE Procedure This was a 2D Doppler, Color Flow transthoracic echocardiogram. Exam performed in department. Left Ventricle Normal LV size. Moderate concentric left ventricular hypertrophy. The left ventricular ejection fraction is 70 %. Stage 2 diastolic dysfunction. Right Ventricle Normal right ventricle. Atria The left atrium is severely enlarged. Normal right atrium. Mitral Valve Severe mitral annular calcification. Mild (1+) mitral valve insufficiency. Tricuspid Valve Mild tricuspid valve insufficiency. Right ventricular systolic pressure estimated to be 37 mmHg. Aortic Valve Mild diffuse aortic valve calcification. Mild aortic valve stenosis. Moderate aortic valve regurgitation. Pulmonic Valve The pulmonic valve is not well visualized. Trivial pulmonic valve insufficiency. Great Vessels Normal sized aortic root. Pericardium/Pleural No pericardial effusion. MMode/2D Measurements Calculations LVIDd: 3.8 cm IVSd: 1.5 cm LVOT diam: 1.9 cm LVIDs: 1.6 cm LVPWd: 1.3 cm LVOT area: 2.9 cm2 RVDd: 3.0 cm FS: 59.3 % asc Aorta Diam: 3.1 cm LAV(MOD-bp): 60.9 ml LVAd ap4: 16.1 cm2 LAV(MOD-bp) Indexed: 34.3 ml/m2 LVLd ap4: 6.0 cm LAV(MOD-sp2): 57.1 ml EDV(MOD-sp4): 35.7 ml LAV(MOD-sp4): 60.1 ml EDV(sp4-el): 36.8 ml LVAs ap4: 7.5 cm2 LVLs ap4: 5.0 cm ESV(MOD-sp4): 10.3 ml ESV(sp4-el): 9.7 ml EF(MOD-sp4): 71.1 % EF(sp4-el): 73.5 % LVAd ap2: 13.8 cm2 SV(MOD-sp4): 25.4 ml SV(MOD-sp2): 17.1 ml LVLd ap2: 6.2 cm EDV(MOD-sp2): 25.3 ml EDV(sp2-el): 26.4 ml LVAs ap2: 7.1 cm2 LVLs ap2: 5.3 cm ESV(MOD-sp2): 8.3 ml ESV(sp2-el): 8.1 ml EF(MOD-sp2): 67.4 % SV(sp4-el): 27.0 ml Ao sinus diam: 2.[address] Junction: 2.2 cm LA dimension(2D): 4.1 cm LA A4 area: 21.3 cm2 RA A4 area: 8.8 cm2 TAPSE: 2.1 cm Time Measurements MV dec time: 0.32 sec Doppler Measurements Calculations MV E max edmundo: 114.9 cm/sec Lat Peak E' Edmundo: 5.2 cm/sec Med Peak E' Edmundo: 4.3 cm/sec MV A max edmundo: 131.4 cm/sec E/E' lat: 22.3 E/E' med: 26.6 MV E/A: 0.87 MV V2 max: 169.7 cm/sec MV dec slope: 358.6 cm/sec2 Ao V2 max: 238.0 cm/sec MV max P.5 mmHg Ao max P.7 mmHg MV V2 mean: 111.0 cm/sec Ao V2 mean: 165.6 cm/sec MV mean P.2 mmHg Ao mean P.4 mmHg MV V2 VTI: 47.2 cm Ao V2 VTI: 52.5 cm MVA(VTI): 2.0 cm2 AV (velocity ratio): 0.60 NATHANIEL(I,D): 1.8 cm2 NATHANIEL(V,D): 1.7 cm2 AI max edmundo: 460.3 cm/sec LV V1 max: 140.8 cm/sec SV(LVOT): 92.9 ml AI max P.7 mmHg LV V1 max P.9 mmHg LV V1 mean P.0 mmHg AI dec slope: 307.8 cm/sec2 LV V1 mean: 107.7 cm/sec AI P1/2t: 438.1 msec LV V1 VTI: 31.7 cm PA V2 max: 126.7 cm/sec TR max edmundo: 282.4 cm/sec PA max PG (full): 2.9 mmHg TR max P.9 mmHg ECHO/Echo Complete Interpretation Summary Moderate concentric left ventricular hypertrophy. The left ventricular ejection fraction is 70 %. Stage 2 diastolic dysfunction. The left atrium is severely enlarged. Severe mitral annular calcification. Mild (1+) mitral valve insufficiency. Mild tricuspid valve insufficiency. Right ventricular systolic pressure estimated to be 37 mmHg. Mild aortic valve stenosis. Moderate aortic valve regurgitation. __ Ordering Physician: Art Melara Referring Physician: Art Melara MD Performed By: Mary Lane, BARTOLOME 11/15/23910 Date Art Melara MD CC: Dr. Art Melara MD; Dr. Eitan Price MD Date Dictated: 11/14/23 1403 Date Transcribed: 11/15/23910 Top Knitter[facility] Office Visit ([id number]) ---- INGRID DONALD ([id number]) 1935 F Date Time Provider Department 11/13/23 9:30 AM MARK VAZQUEZ [id number] During your visit today, we recorded the following information about you: Respiration Weight Height 16/minute 83 kg 1.499 m Mark Vazquez MD 11/13/2023 10:41 AM Signed Chief Complaint: Bilateral knee pain Consuting Physician: History: Ingrid is a 87 year old female who presents with a longstanding history of bilateral knee pain. She denies any traumatic history but more of an insidious onset of pain. The pain is located along the patellofemoral region of the knee. The pain is non-radiating and intermittent in nature. The pain is worse in the morning and after activities such as prolonged ambulation and standing. The pain is typically dull but can be sharp at times. she reports occasional night pain. Stiffness is noted especially in the am and with prolonged sitting activities. Clicking and popping are noted but no locking or catching. she has tried Tylenol with minimal success. No pain in the hip, back or groin region. No numbness and tingling down the extremity. No fevers, chills, night sweats or other constitutional symptoms. Occasional swelling is experienced. There are no symptoms of infection or deep venous thrombosis. She quantitates the pain as 5/10. She reports that her ADL?s have been affected adversely secondary to her knee pain. Review Of Systems: GENERAL: Well developed, well nourished. No acute distress PAIN: Negative for pain, history of chronic pain or current treatment for chronic pain conditions CARDIOVASCULAR: Negative for chest pain, leg swelling and palpations. MSK: Negative for joint pain, swelling, back pain, muscle pain. SKIN: Negative for lesions, rash, itching, metal sensitivity NEURO: Negative for seizure, trauma, numbness/tingling of extremities. ENDOCRINE: Diabetes Type 2 HEMATOLOGY: Negative for excessive bleeding, clots, bleeding disorders. Physical Examination: Ingrid is alert and oriented and in no acute distress. She exhibits an antalgic gait. She has evidence of (varus/ valgus) malalignment of her bilateral knee(s). Skin is intact bilaterally. The patient lacks 5 degrees of full extension of the bilateral knee(s) and lacks 5-7 degrees of flexion as well. She has evidence of a Small) effusion. She has evidence of patellofemoral crepitation with ROM. There is some pain with palpation along the medial and lateral facets of the patella. She has pain along the medial and lateral joint lines. A negative Jose Alfredo?s is noted. Negative anterior and posterior drawers are seen. She has good stability with varus and valgus stress at 0 and 30 degrees. No increase in ER is seen at 30 or 90 degrees. Full ROM of both hips and ankles are noted. She has 5/5 motor strength with downgoing Babinski?s and symmetric reflexes. Good pulses and cap refill are seen. Gross sensation intact. X-ray Evaluation: Standing 45 degree weight bearing, merchant and lateral radiographs of the bilateral knee (s) were ordered, taken and reviewed today. The radiographs show Varus malalignment and severe joint space narrowing along the patellofemoral joint lines with osteophytic spurring, and sclerosis. The patellae are located in the trochlea but also show signs of sclerosis, and joint space narrowing. No signs of fracture, avulsion or dislocation. No overt signs of bony tumor. Assessment: Primary osteoarthritis of both knees (primary encounter diagnosis) Plan: The patient understands the diagnosis, treatment options and indications for both operative and non-operative, their associated risks, complications, benefits, outcomes, rehabilitation and failures. It was decided to proceed with a nonoperative treatment option consisting of NSAID?s and a physical therapy program emphasizing quadricep strengthening, stretching and ROM. Injection performed as detailed below: Large Joint Arthro/Inj: bilateral knee joints 11/13/2023 9:47 AM The procedure site was prepped in the usual sterile fashion. Site: bilateral knee joints Medications (Right): 40 mg triamcinolone acetonide 40 mg/mL Medications (Left): 80 mg triamcinolone acetonide 40 mg/mL Anesthetics (Right): 5 mL lidocaine (PF) 10 mg/mL (1 %) Anesthetics (Left): 5 mL lidocaine (PF) 10 mg/mL (1 %) Outcome: Tolerated well, no immediate complications Post-injection instructions were reviewed with the patient and the patient voiced understanding of these instructions. Tylenol was recommended for pain control if tolerated. To be used as directed on the bottle. He will return for follow-up in prn basis. MD Lakesha Barajas Dianna, LPN 11/13/2023 10:41 AM Signed Injection prepared per order for Dr. Vazquez' and handed directly to him. Injection site: asaf knees BREDNON Qureshi (more content not included)... Normal [facility] Large Joint Arthro/Inj: bila teral knee jointson 11-13-2023 Mark Vazquez MD 11/13/2023 10:41 AM Large Joint Arthro/Inj: bilateral knee joints 11/13/2023 9:47 AM The procedure site was prepped in the usual sterile fashion. Site: bilateral knee joints Medications (Right): 40 mg triamcinolone acetonide 40 mg/mL Medications (Left): 80 mg triamcinolone acetonide 40 mg/mL Anesthetics (Right): 5 mL lidocaine (PF) 10 mg/mL (1 %) Anesthetics (Left): 5 mL lidocaine (PF) 10 mg/mL (1 %) Outcome: Tolerated well, no immediate complications Post-injection instructions were reviewed with the patient and the patient voiced understanding of these instructions. [facility] No Panel Informationon 11-12 Standing 45 degree weight bearing, merchant and lateral radiographs of the bilateral knee (s) were ordered, taken and reviewed today. The radiographs show Varus malalignment and severe joint space narrowing along the patellofemoral joint lines with osteophytic spurring, and sclerosis. The patellae are located in the trochlea but also show signs of sclerosis, and joint space narrowing. No signs of fracture, avulsion or dislocation. No overt signs of bony tumor. [facility] [facility] XR Knee - left 3 [facility] Study observation (narrative) [facility] XR Knee - right 3 [facility] Radiology Study observation (narrative) [facility] Comprehensive Metabolic Prof ilon 11-09-2023 Albumin [Mass/Vol] 3.3 g/dL Normal 3.2-5.0 [facility] Comment on above: Performed By: #### L 500.1440, L500.4100 #### [facility] [address] [place], [address] Albumin/Globulin [Mass ratio] 0.9 {ratio} Normal 0.9-2.4 [facility] Comment on above: Performed By: #### L 500.4050, L500.4100 #### [facility] [address] [place], [address] ALK P 73 U/L Normal 45-117 [facility] Comment on above: Performed By: #### L 500.4050, L500.4100 #### [facility] [address] [place], [address] ALT [Catalytic activity/Vol] 18 U/L Normal 13-56 [facility] Comment on above: Performed By: #### L 500.4050, L500.4100 #### [facility] [address] [place], [address] AST [Catalytic activity/Vol] 14 U/L Low 15-37 [facility] Comment on above: Performed By: #### L 500.4050, L500.4100 #### [facility] [address] [place], [address] Bilirubin [Mass/Vol] 0.50 mg/dL Normal 0.20-1.[address] [facility] Comment on above: Result Comment: For patients on eltrombopag therapy, use of Dimension Sunset TBIL is not recommended. Performed By: #### L 500.4050, L500.4100 #### [facility] [address] [place], [address] BUN/CRE 17.7 RATIO Normal 10-20 [facility] Comment on above: Performed By: #### L 500.4050, L500.4100 #### [facility] [address] [place], [address] CA,Total 9.3 mg/dL Normal 8.5-10.1 [facility] Comment on above: Performed By: #### L 500.4050, L500.4100 #### [facility] [address] [place], [address] Chloride [Moles/Vol] 109 mmol/L High 98-[address] [facility] Comment on above: Performed By: #### L 500.4050, L500.4100 #### [facility] [address] [place], [address] CO2 [Moles/Vol] 28.0 mmol/L Normal 21.0-32.0 [facility] Comment on above: Performed By: #### L 500.4050, L500.4100 #### [facility] [address] [place], [address] Creatinine [Mass/Vol] 1.75 mg/dL High 0.55-1.02 [facility] Comment on above: Result Comment: The validity of the calculated GFR GFRAA in patients over 70 years has not been determined. Clinical correlation is essential. Performed By: #### L 500.4050, L500.4100 #### [facility] [address] [place], [address] EST GFR - AA 35 mL/min Low >60 [facility] Comment on above: Result Comment: Afri can Cymraes GFR Calc Performed By: #### L 500.4050, L500.4100 #### [facility] [address] [place], [address] GAP 3 Low 5-15 [facility] Comment on above: Performed By: #### L 500.4050, L500.4100 #### [facility] [address] [place], [address] GFR/1.73 sq M.predicted among non-blacks MDRD (S/P/Bld) [Vol rate/Area] 29 mL/min/{1.73_m2} Low >60 [facility] Comment on above: Result Comment: Non- GFR Calc Performed By: #### L 500.4050, L500.4100 #### [facility] [address] [place], [address] Globulin (S) [Mass/Vol] 3.5 g/dL Normal 2.2-4.2 [facility] Comment on above: Performed By: #### L 500.4050, L500.4100 #### [facility] [address] [place], [address] Glucose [Mass/Vol] 117 mg/dL High 74-106 [facility] Comment on above: Result Comment: Fast ing Glucose result from 100 to 125 mg/dL suggests IMPAIRED HOMEOSTASIS per A.D.A. criteria. Performed By: #### L 500.4050, L500.4100 #### [facility] [address] [place], [address] Potassium [Moles/Vol] 4.9 mmol/L Normal 3.5-5.1 [facility] Comment on above: Performed By: #### L 500.4050, L500.4100 #### [facility] [address] [place], [address] Sodium [Moles/Vol] 140 mmol/L Normal 136-145 [facility] Comment on above: Performed By: #### L 500.4050, L500.4100 #### [facility] [address] [place], [address] T PROT 6.8 g/dL Normal 6.4-8.2 [facility] Comment on above: Performed By: #### L 500.4050, L500.4100 #### [facility] [address] [place], [address] Urea nitrogen [Mass/Vol] 31 mg/dL High 7-18 [facility] Comment on above: Performed By: #### L 500.4050, L500.4100 #### [facility] [facility] [address] [place], [address] Lipid Profileon 11-09-2023 Cholesterol [Mass/Vol] 102 mg/dL Normal 200 [facility] Comment on above: Result Comment: <200 mg/dL Desirable 200-240 mg/dL Borderline >240 mg/dL High Risk Performed By: #### L 500.4050, L500.4100 #### [facility] [address] [place], [address] Cholesterol in HDL [Mass/Vol] 53 mg/dL Normal [facility] Comment on above: Result Comment: The drugs N-Acetylcysteine and Metamizole may falsely depress this assay. Reference Range HDL <40 mg/dL Low HDL Cholesterol HDL >or= 60 mg/dL High HDL Cholesterol Performed By: #### L 500.4050, L500.4100 #### [facility] [address] [place], [address] Cholesterol in LDL [Mass/Vol] 33 mg/dL Normal 0-130 [facility] Comment on above: Performed By: #### L 500.4050, L500.4100 #### [facility] [address] [place], [address] Cholesterol in VLDL [Mass/Vol] 16 mg/dL Normal 5-40 [facility] Comment on above: Performed By: #### L 500.4050, L500.4100 #### [facility] [address] [place], [address] Triglyceride [Mass/Vol] 78 mg/dL Normal [facility] Comment on above: Result Comment: The drugs N-Acetylcysteine and Metamizole may falsely depress this assay. Serum Triglycerides Reference Interval Normal <150 mg/dL Borderline high 150 - 199 mg/dL High 200 - 499 mg/dL Very High > or = 500 mg/dL Performed By: #### L 500.4050, L500.4100 #### [facility] [address] [place], [address] Cardiology Visit Reporton Cardiology Visit Report [facility] [address] [place] [address] OFFICE VISIT Date of Service: 11/06/23 MR#: [id number] Acct: [id number] Name: INGRID DONALD Rep #: [id number] : 1935 Provider: Dr. Art Melara MD Age/Sex: 87/F [place] [facility] [place] Status: Signed HPI [facility] History of Present Illness Details: This pleasant lady denies any complaints today. No chest pains. No shortness of breath. No palpitations, orthopnea, PND or ankle edema. Tolerating apixaban. No abnormal bleeding. 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 Accompanied by: Is patient in pain?: No Allergies morphine Allergy (Mild, Verified 11/06/23 08:59) Hives Medications ???Medication ???Instructions ???Recorded ???Confirmed ???Type cyanocobalamin (vitamin B-12) 1,000 mcg PO DAILY 06/22/16 11/06/23 History 1,000 mcg tablet montelukast 10 mg tablet 10 mg PO QHS 06/22/16 11/06/23 History omeprazole 20 mg capsule,delayed 20 mg PO DAILY 12/08/20 11/06/23 History release losartan 100 mg tablet 100 mg PO DAILY 12/14/21 11/06/23 History ferrous sulfate 325 mg (65 mg 325 mg PO DAILY 12/06/22 07/26/23 History iron) tablet amlodipine 5 mg tablet 5 mg PO DAILY 07/26/23 11/06/23 History apixaban 2.5 mg tablet (Eliquis) 2.5 mg PO BID 07/26/23 11/06/23 History carvedilol 25 mg tablet 25 mg PO QDAY 07/26/23 11/06/23 History aspirin 81 mg tablet,delayed 81 mg PO QDAY 11/06/23 11/06/23 History release (Adult Aspirin Regimen) atorvastatin 80 mg tablet 80 mg PO QDAY 11/06/23 11/06/23 History fluoxetine 20 mg capsule 20 mg PO QDAY 11/06/23 11/06/23 History Ejection fraction %: 65 Have you fallen in the past year?: No PFSH Medical History Anemia Aortic stenosis Asthma 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 Coronary artery disease Depression Dyspnea on exertion GERD (gastroesophageal reflux disease) Hematoma of groin Hiatal hernia History of colon cancer Hyperlipemia Hypertension New onset atrial fibrillation Non-STEMI (non-ST elevated myocardial infarction) Nonsustained ventricular tachycardia Obesity Paroxysmal atrial fibrillation Subdural hematoma, acute Type 2 diabetes mellitus without complications Surgical History History of History of cholecystectomy ( 2011) History of colectomy ( 04/2001) History of coronary artery stent placement (06/23/16) History of right and left heart catheterization (09/19/19) Family History Mother CAD (coronary artery disease) Father CAD (coronary artery disease) Brother CAD (coronary artery disease) Sister CAD (coronary artery disease) Social History Smoking Status: Never smoker alcohol intake: never substance use type: does not use caffeine: Yes Type: coffee Number of servings: 4 ROS Const Const: Negative for fatigue, weakness, headache(s) or weight gain ENT ENT: Negative for headache(s), dizziness, Nosebleed/epistaxis or balance problems Cardio Chest Pain: No Palpitations: No Edema: None Muscle aches with walking: None Resp Respiratory: Positive for SOB with activity; Negative for SOB at rest or SOB orthopnea SOB lying down GI GI: Negative nausea, vomiting or heartburn Musc Musc: Positive for joint pain (arthritis in bilateral knees); Negative for muscle aches/ myalgia, muscle weakness or balance problems Neuro Neuro: Negative for dizziness, lightheadedness, near syncope, syncope, headache(s) or weakness Endo Endo: Negative for fatigue Cardiology Exam Const Appearance: comfortable and no acute distress Nutritional Appearance: well nourished Neck Neck: no JVD Carotids: Negative bruit Chest Auscultation: Bilateral: Clear to Auscultation Cardio Rate: regular rate Rhythm: regular rhythm Heart sounds: S1 normal, S2 normal and murmur (2/6 systolic murmur at base) Neuro General: patient alert, patient awake and patient oriented x3 Extremities Lower Extremity Edema: None: Bilateral Supplemental Info Supplemental Information Echocardiogram 12/2022: Severe concentric left ventricular hypertrophy. The left ventricular ejection fraction is 65 %. Stage 2 diastolic dysfunction. Corina (more content not included)... Normal [facility] XR KNEES ANTEROPOSTERIOR STA NDING BILATERALon 10-03-2023 XR KNEES ANTEROPOSTERIOR STANDING BILATERAL Interpreted By: Tequila Acevedo, STUDY: Bilateral knees, single standing AP view radiographs. INDICATION: Signs/Symptoms:pain . COMPARISON: None. ACCESSION NUMBER(S): [id number] ORDERING CLINICIAN: EITAN PRICE FINDINGS: No acute fracture or malalignment. 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 [id number] medial and mild lateral compartment osteoarthrosis of the right knee. Ossified loose body in the lateral suprapatellar recess of the right knee. IMPRESSION: 1. Bilateral knee degenerative changes as above, left worse than right. MACRO: None Signed by: Tequila Acevedo 10/09/2023 1:54 PM Dictation workstation: [id number] Normal [facility] CBC W Auto Differential pane l (Bld)on 09-28-2023 Basophils (Bld) [#/Vol] 0.03 x10*3/uL Normal 0.00-0.10 [facility] Comment on above: Performed By: #### 2 4323-8 #### MARGO Brown ([id number]) [facility] ([facility]) [address] [place] [address] Basophils/100 WBC (Bld) 0.4 % Normal 0.0-2.0 [facility] Comment on above: Performed By: #### 2 4323-8 #### MARGO Brown ([id number]) [facility] ([facility]) [address] [place] [address] 62079 Eosinophils (Bld) [#/Vol] 0.19 x10*3/uL Normal 0.00-0.40 [facility] Comment on above: Performed By: #### 2 4323-8 #### MARGO Brown ([id number]) [facility] ([facility]) [address] [place] [address] 48450 Eosinophils/100 WBC (Bld) 2.5 % Normal 0.0-6.0 [facility] Comment on above: Performed By: #### 2 432-8 #### MARGO Brown ([id number]) [facility] ([facility]) [address] [place] [address] 16047 Erythrocyte distribution width (RBC) [Ratio] 14.1 % Normal 11.5-14.5 [facility] Comment on above: Performed By: #### 2 432-8 #### MARGO Brown ([id number]) [facility] ([facility]) [address] [place] [address] 11343 Hematocrit (Bld) [Volume fraction] 36.8 % Normal 36.0-46.0 [facility] Comment on above: Performed By: #### 2 4323-8 #### MARGO Brown ([id number]) [facility] ([facility]) [address] [place] [address] Hemoglobin (Bld) [Mass/Vol] 11.7 g/dL Low 12.0-16.0 [facility] Comment on above: Performed By: #### 2 4323-8 #### MARGO Brown ([id number]) [facility] ([facility]) [address] [place] [address] 75949 Immature granulocytes (Bld) [#/Vol] 0.04 x10*3/uL Normal 0.00-0.50 [facility] Comment on above: Performed By: #### 2 4323-8 #### MARGO Brown ([id number]) [facility] ([facility]) [address] [place] [address] Immature granulocytes/100 WBC (Bld) 0.5 % Normal 0.0-0.9 [facility] Comment on above: Result Comment: Jennifer ture Granulocyte Count (IG) includes promyelocytes, myelocytes and metamyelocytes but does not include bands. Percent differential counts (%) should be interpreted in the context of the absolute cell counts (cells/UL). Performed By: #### 2 4323-8 #### MARGO Brown ([id number]) [facility] ([facility]) [id number] [place] [address] 14422 Lymphocytes (Bld) [#/Vol] 2.73 x10*3/uL Normal 0.80-3.00 [facility] Comment on above: Performed By: #### 2 4323-8 #### MARGO Brown ([id number]) [facility] ([facility]) [id number] [place] [address]24 Lymphocytes/100 WBC (Bld) 35.8 % Normal 13.0-44.0 [facility] Comment on above: Performed By: #### 2 4323-8 #### MARGO Brown ([id number]) [facility] ([facility]) [id number] [place] [address] 64554 MCH (RBC) [Entitic mass] 28.7 pg Normal 26.0-34.0 [facility] Comment on above: Performed By: #### 2 4323-8 #### MARGO Brown ([id number]) [facility] ([facility]) [id number] [place] [address] 90266 MCHC (RBC) [Mass/Vol] 31.8 g/dL Low 32.0-36.0 [facility] Comment on above: Performed By: #### 2 4323-8 #### MARGO Brown ([id number]) [facility] ([facility]) [address] [place] [address] MCV (RBC) [Entitic vol] 90 fL Normal 80-100 [facility] Comment on above: Performed By: #### 2 4323-8 #### MARGO Brown ([id number]) [facility] ([facility]) [id number] [place] [address] 32387 Monocytes (Bld) [#/Vol] 0.82 x10*3/uL High 0.05-0.80 [facility] Comment on above: Performed By: #### 2 4323-8 #### MARGO Brown ([id number]) [facility] ([facility]) [id number] [place] [address] 11609 Monocytes/100 WBC (Bld) 10.8 % Normal 2.0-10.0 [facility] Comment on above: Performed By: #### 2 4323-8 #### MARGO Brown ([id number]) [facility] ([facility]) [address] [place] [address] 14989 Neutrophils (Bld) [#/Vol] 3.81 x10*3/uL Normal 1.60-5.50 [facility] Comment on above: Result Comment: Perc ent differential counts (%) should be interpreted in the context of the absolute cell counts (cells/uL). Performed By: #### 2 4323-8 #### MARGO Brown ([id number]) [facility] ([facility]) [address] [place] [address] 54625 Neutrophils/100 WBC (Bld) 50.0 % Normal 40.0-80.0 [facility] [facility] Comment on above: Performed By: #### 2 4323-8 #### MARGO Brown ([id number]) [facility] ([facility]) [address] [place] [address] 91358 Nucleated RBC/100 WBC (Bld) [Ratio] 0.0 /100 WBCs Normal 0.0-0.0 [facility] Comment on above: Performed By: #### 2 4323-8 #### MAGRO Brown ([id number]) [facility] ([facility]) [address] [place] [address] 81266 Platelets (Bld) [#/Vol] 146 x10*3/uL Low 150-450 [facility] Comment on above: Performed By: #### 2 4323-8 #### MARGO Brown ([id number]) [facility] ([facility]) [id number] [place] [address] 10592 RBC (Bld) [#/Vol] 4.07 x10*6/uL Normal 4.00-5.20 [facility] Comment on above: Performed By: #### 2 4323-8 #### MARGO Brown ([id number]) [facility] ([facility]) [address] [place] [address] 31787 WBC (Bld) [#/Vol] 7.6 x10*3/uL Normal 4.4-11.3 [facility] Comment on above: Performed By: #### 2 4323-8 #### MARGO Brown ([id number]) [facility] ([facility]) [address] [place] [address] 88976 Comprehensive metabolic 2000 panelon 09-28-2023 Albumin BCP dye [Mass/Vol] 3.8 g/dL Normal 3.4-5.0 [facility] Comment on above: Performed By: #### 2 4323-8 #### MARGO Brown ([id number]) [facility] ([facility]) [address] [place] [address] ALP [Catalytic activity/Vol] 67 U/L Normal 33-136 [facility] Comment on above: Performed By: #### 2 4323-8 #### MARGO Brown ([id number]) [facility] ([facility]) [address] [place] [address] ALT With P-5'-P [Catalytic activity/Vol] 15 U/L Normal 7-45 [facility] Comment on above: Result Comment: Carlota ents treated with Sulfasalazine may generate falsely decreased results for ALT. Performed By: #### 2 4323-8 #### MARGO Brown ([id number]) [facility] ([facility]) [address] [place] [address] Anion gap [Moles/Vol] 11 mmol/L Normal 10-20 [facility] Comment on above: Performed By: #### 2 4323-8 #### MARGO Brown ([id number]) [facility] ([facility]) [address] [place] [address] AST With P-5'-P [Catalytic activity/Vol] 15 U/L Normal 9-39 [facility] Comment on above: Performed By: #### 2 4323-8 #### MARGO Brown ([id number]) [facility] ([facility]) [address] [place] [address] 96664 Bilirubin [Mass/Vol] 0.7 mg/dL Normal 0.0-1.2 [facility] Comment on above: Performed By: #### 2 4323-8 #### MARGO Brown ([id number]) [facility] ([facility]) [address] [place] [address] 77308 Calcium [Mass/Vol] 9.4 mg/dL Normal 8.6-10.6 [facility] Comment on above: Performed By: #### 2 4323-8 #### MARGO Brown ([id number]) [facility] ([facility]) [address] [place] [address] 58578 Chloride [Moles/Vol] 106 mmol/L Normal 98-107 [facility] Comment on above: Performed By: #### 2 4323-8 #### MARGO Brown ([id number]) [facility] ([facility]) [address] [place] [address] 70808 CO2 [Moles/Vol] 28 mmol/L Normal 21-32 [facility] Comment on above: Performed By: #### 2 4323-8 #### MARGO Brown ([id number]) [facility] ([facility]) [address] [place] [address] 52100 Creatinine [Mass/Vol] 1.52 mg/dL High 0.50-1.05 [facility] Comment on above: Performed By: #### 2 4323-8 #### MARGO Brown ([id number]) [facility] ([facility]) [address] [place] [address] 82981 Glomerular filtration rate/1.73 sq M.predicted 33 mL/min/1.73m*2 Low >60 [facility] Comment on above: Result Comment: Calc ulations of estimated GFR are performed using the 2020 CKD-EPI Study Refit equation without the race variable for the IDMS-Traceable creatinine methods. https://jasn.asnjournals.org/content/early//ASN.01089 02647 Performed By: #### 2 4323-8 #### MARGO RICE L ([id number]) [facility] ([facility]) [address] [place] [address] 18827 Glucose [Mass/Vol] 145 mg/dL High 74-99 [facility] Comment on above: Performed By: #### 2 4323-8 #### MARGO RICE L ([id number]) [facility] ([facility]) [address] [place] [address] 98852 Potassium [Moles/Vol] 4.4 mmol/L Normal 3.5-5.3 [facility] Comment on above: Performed By: #### 2 4323-8 #### MARGO RICE L ([id number]) [facility] ([facility]) [address] [place] [address] 16399 Protein [Mass/Vol] 6.6 g/dL Normal 6.4-8.2 [facility] Comment on above: Performed By: #### 2 4323-8 #### MARGO RICE L ([id number]) [facility] ([facility]) [address] [place] [address] 76251 Sodium [Moles/Vol] 141 mmol/L Normal 136-145 [facility] Comment on above: Performed By: #### 2 4323-8 #### MARGO RICE L ([id number]) [facility] ([facility]) [address] [place] [address] 77084 Urea nitrogen [Mass/Vol] 24 mg/dL High - [facility] Comment on above: Performed By: #### 2 4323-8 #### MARGO Brown ([id number]) [facility] ([facility]) [address] [place] [address] 29126 HbA1c (Bld) [Mass fraction]o n 09-28-2023 Average glucose Estimated from glycated hemoglobin (Bld) [Mass/Vol] 131 mg/dL Normal Not Established [facility] Comment on above: Order Comment: Diagn osis of Bjxhajuq-OifwegPcf-Gwzwnkhv: < or = 5.6%Increased risk for developing diabetes: 5.7-6.4%Diagnostic of diabetes: > or = 6.5% Performed By: #### 2 4323-8 #### MARGO Brown ([id number]) [facility] ([facility]) [address] [place] [address] 33076 Hemoglobin A1c/Hemoglobin.to josue 09-28-2023 HbA1c (Bld) [Mass fraction] 6.2 % High see below [facility] Comment on above: Order Comment: Diagn osis of Fbqanxgz-SqwausWnk-Aektfxwp: < or = 5.6%Increased risk for developing diabetes: 5.7-6.4%Diagnostic of diabetes: > or = 6.5% Performed By: #### 2 4323-8 #### MARGO Brown ([id number]) [facility] ([facility]) [address] [place], [place] [address] Lipid 1996 panelon 4 Cholesterol [Mass/Vol] 112 mg/dL Normal 0-199 [facility] Comment on above: Result Comment: Age Desirable Borderline High High 0-19 Y 0 - 169 170 - 199 >/= 200 20-24 Y 0 - 189 190 - 224 >/= 225 >24 Y 0 - 199 200 - 239 >/= 240 All ranges are based on fasting samples. Specific therapeutic targets will vary based on patient-specific cardiac risk. Pediatric guidelines reference:Pediatrics 2011, 128(S5).Adult guidelines reference: NCEP ATPIII Guidelines,BARBY 2001, 258:2486-97 Venipuncture immediately after or during the administration of Metamizole may lead to falsely low results. Testing should be performed immediately prior to Metamizole dosing. Performed By: #### 2 4323-8 #### MARGO Brown ([id number]) [facility] ([facility]) [address] [place] [address] 65248 Cholesterol in HDL [Mass/Vol] 41.5 mg/dL Normal [facility] Comment on above: Result Comment: Age Very Low Low Normal High 0-19 Y < 35 < 40 40-45 ---- 20-24 Y ---- < 40 >45 ---- >24 Y ---- < 40 40-60 >60 Performed By: #### 2 4323-8 #### MARGO Brown ([id number]) [facility] ([facility]) [address] [place] [address] 18806 Cholesterol in LDL [Mass/Vol] 51 mg/dL Normal <=99 [facility] Comment on above: Result Comment: Near Borderline AGE Desirable Optimal High High Very High 0-19 Y 0 - 109 --- 110-129 >/= 130 ---- 20-24 Y 0 - 119 --- 120-159 >/= 160 ---- >24 Y 0 - 99 100-129 130-159 160-189 >/=190 Performed By: #### 2 4323-8 #### MARGO Brown ([id number]) [facility] ([facility]) [address] [place] [address] 22556 Cholesterol in VLDL [Mass/Vol] 20 mg/dL Normal 0-40 [facility] Comment on above: Performed By: #### 2 4323-8 #### MARGO Brown ([id number]) [facility] ([facility]) [address] [place] [address] 97125 CHOLESTEROL/HDL RATIO 2.7 Normal [facility] Comment on above: Result Comment: Ref Values Desirable < 3.4 High Risk > 5.0 Performed By: #### 2 4323-8 #### MARGO Brown ([id number]) [facility] ([facility]) [address] [place] [address] 11336 NON HDL CHOLESTEROL 71 mg/dL Normal 0-149 [facility] Comment on above: Result Comment: Age Desirable Borderline High High Very High 0-19 Y 0 - 119 120 - 144 >/= 145 >/= 160 20-24 Y 0 - 149 150 - 189 >/= 190 ---- >24 Y 30 mg/dL above LDL Cholesterol goal Performed By: #### 2 4323-8 #### MARGO Brown ([id number]) [facility] ([facility]) [address] [place] [address] 42035 Triglyceride [Mass/Vol] 100 mg/dL Normal 0-149 [facility] Comment on above: Result Comment: Age Desirable Borderline High High Very High 0 D-90 D 19 - 174 ---- ---- ---- 91 D- 9 Y 0 - 74 75 - 99 >/= 100 ---- 10-19 Y 0 - 89 90 - 129 >/= 130 ---- 20-24 Y 0 - 114 115 - 149 >/= 150 ---- >24 Y 0 - 149 150 - 199 200- 499 >/= 500 Venipuncture immediately after or during the administration of Metamizole may lead to falsely low results. Testing should be performed immediately prior to Metamizole dosing. Performed By: #### 2 4323-8 #### MARGO Brown ([id number]) [facility] ([facility]) [address] [place] [address] 35724 Cardiology Visit Reporton Cardiology Visit Report [facility] [address] [place] [address]. [address] [place] [address] OFFICE VISIT Date of Service: 07/26/23 MR#: [id number] Acct: [id number] Name: INGRID DONALD Rep #: [id number] : 1935 Provider: Dr. Art Melara MD Age/Sex: 87/F Location[place] [facility] [place] Status: Signed HPI [facility] History of Present Illness Details: This very pleasant lady with past medical history significant for coronary artery disease status post drug-eluting stent to the LAD in 2017, hypertension and paroxysmal atrial fibrillation is here for follow-up visit. Her antithrombotic regimen was briefly stopped for her traumatic subdural hematoma but has recently been reduced at a lower dose. Denies any complaints today. No chest pains or shortness of breath. No palpitations. No orthopnea or PND. No ankle edema. Intake Vital Signs 12/06/22 14:34 07/26/23 13:28 Height 4 ft 11 in 4 ft 11 in Weight: 178 lb 184 lb BMI 35.9 37.1 BP 154/79 H 138/58 H Blood Pressure Location Rt brachial Rt brachial Position Sitting Sitting Respiration 16 16 Pulse 69 54 L Pulse Source Auscultation Monitor Intake Visit Reasons: 6 M FU [employer] Required: No Accompanied by: , daughter in law Is patient in pain?: No Allergies morphine Allergy (Mild, Verified 07/26/23 13:28) Hives Medications ???Medication ???Instructions ???Recorded ???Confirmed ???Type atorvastatin 80 mg tablet 80 mg PO QHS 06/22/16 07/26/23 History cyanocobalamin (vitamin B-12) 1,000 mcg PO DAILY 06/22/16 07/26/23 History 1,000 mcg tablet montelukast 10 mg tablet 10 mg PO QHS 06/22/16 07/26/23 History omeprazole 20 mg capsule,delayed 20 mg PO DAILY 12/08/20 07/26/23 History release losartan 100 mg tablet 100 mg PO DAILY 12/14/21 07/26/23 History ferrous sulfate 325 mg (65 mg 325 mg PO DAILY 12/06/22 07/26/23 History iron) tablet metformin 500 mg tablet 500 mg PO DAILY 12/06/22 07/26/23 History amlodipine 5 mg tablet 5 mg PO DAILY 07/26/23 07/26/23 History apixaban 2.5 mg tablet (Eliquis) 2.5 mg PO BID 07/26/23 07/26/23 History bupropion HCl 150 mg 24 hr tablet, 150 mg PO QDAY 07/26/23 07/26/23 History extended release carvedilol 25 mg tablet 25 mg PO QDAY 07/26/23 07/26/23 History citalopram 40 mg tablet 20 mg PO QDAY 07/26/23 07/26/23 History lorazepam 0.5 mg tablet 0.5 mg PO DAILY PRN 07/26/23 07/26/23 History Ejection fraction %: 65 [facility] Medical History Subdural hematoma, acute Coronary artery disease Aortic stenosis Anemia Paroxysmal atrial fibrillation New onset atrial fibrillation Dyspnea on exertion Atherosclerotic heart disease [place] coronary artery w/angina pectoris Type 2 diabetes mellitus without complications Hematoma of groin Obesity GERD (gastroesophageal reflux disease) Hiatal hernia History of colon cancer Asthma Depression Atherosclerotic heart disease of [place] coronary artery without angina pectoris Hypertension Nonsustained ventricular tachycardia Non-STEMI (non-ST elevated myocardial infarction) Hyperlipemia Surgical History History of right and left heart catheterization (09/19/19) History of cholecystectomy ( 2011) History of colectomy ( 04/2001) History of History of coronary artery stent placement (06/23/16) Family History Mother CAD (coronary artery disease) Father CAD (coronary artery disease) Brother CAD (coronary artery disease) Sister CAD (coronary artery disease) Social History Smoking Status: Never smoker alcohol intake: never substance use type: does not use caffeine: Yes Type: coffee Number of servings: 4 ROS Const Const: Positive for fatigue and daytime sleepiness; Negative for weakness, headache(s), frequent falls, difficulty sleeping or excessive sweating Eyes Eyes: Negative for loss of peripheral vision, transient loss of vision, blurry vision, double vision or tunnel vision ENT ENT: Negative for headache(s), dizziness, Nosebleed/epistaxis or balance problems Cardio Chest Pain: No Palpitations: Yes feels like its: thumping Edema: Bilateral Muscle aches with walking: None Resp Respiratory: Negative for SOB with activity, SOB at rest, SOB orthopnea SOB lying down, Cough or paroxysmal nocturnal dyspnea GI GI: Negative nausea, vomiting, heartburn or black,tarry stools : Negative for hematuria Musc Musc: Positive for joint pain (knees); Negative for muscle aches/ myalgia, muscle weakness or balance problems Skin Skin: Negative non-healing lesions, rash or unusual bruising Neuro Neuro: Negative for dizziness, lightheadedness, near syncope, syncope, freq (more content not included)... Normal [facility] ECG 12 lead (Clinic Performe d)on 06-26-2023 SEE SCANNED RESULTS [facility] Work Phone: ECG 12 lead (Clinic Performe d)Ordered By: Meenakshi Gregg on 06-26-2023 [facility] CBC W Auto Differential pane l (Bld)on 06-19-2023 Basophils (Bld) [#/Vol] 0.05 x10*3/uL Normal 0.00-0.10 [facility] Comment on above: Performed By: #### 5 7021-8 #### MARGO Brown ([id number]) [facility] ([facility]) [address] [place] [address] 39571 Basophils/100 WBC (Bld) 0.6 % Normal 0.0-2.0 [facility] Comment on above: Performed By: #### 5 7021-8 #### MARGO Brown ([id number]) [facility] ([facility]) [address] [place] [address] 77993 Eosinophils (Bld) [#/Vol] 0.29 x10*3/uL Normal 0.00-0.40 [facility] Comment on above: Performed By: #### 5 7021-8 #### MARGO Brown ([id number]) [facility] ([facility]) [address] [place] [address] 67719 Eosinophils/100 WBC (Bld) 3.5 % Normal 0.0-6.0 [facility] Comment on above: Performed By: #### 5 7021-8 #### MARGO Brown ([id number]) [facility] ([facility]) [address] [place] [address] 44268 Erythrocyte distribution width (RBC) [Ratio] 14.6 % High 11.5-14.5 [facility] Comment on above: Performed By: #### 5 7021-8 #### MARGO Brown ([id number]) [facility] ([facility]) [address] [place] [address] 13300 Hematocrit (Bld) [Volume fraction] 37.1 % Normal 36.0-46.0 [facility] Comment on above: Performed By: #### 5 7021-8 #### MARGO Brown ([id number]) [facility] ([facility]) [address] [place] [address] 85048 Hemoglobin (Bld) [Mass/Vol] 11.6 g/dL Low 12.0-16.0 [facility] Comment on above: Performed By: #### 5 7021-8 #### MARGO RICE L ([id number]) [facility] ([facility]) [address] [place] [address] 02205 Immature granulocytes (Bld) [#/Vol] 0.03 x10*3/uL Normal 0.00-0.50 [facility] Comment on above: Performed By: #### 5 7021-8 #### MARGO Brown ([id number]) [facility] ([facility]) [address] [place] [address] 63396 Immature granulocytes/100 WBC (Bld) 0.4 % Normal 0.0-0.9 [facility] Comment on above: Result Comment: Jennifer ture Granulocyte Count (IG) includes promyelocytes, myelocytes and metamyelocytes but does not include bands. Percent differential counts (%) should be interpreted in the context of the absolute cell counts (cells/UL). Performed By: #### 5 7021-8 #### MARGO Brown ([id number]) [facility] ([facility]) [address] [place] [address] 00957 Lymphocytes (Bld) [#/Vol] 3.05 x10*3/uL High 0.80-3.00 [facility] Comment on above: Performed By: #### 5 7021-8 #### MARGO RICE L ([id number]) [facility] ([facility]) [address] [place] [address] 95943 Lymphocytes/100 WBC (Bld) 36.7 % Normal 13.0-44.0 [facility] Comment on above: Performed By: #### 5 7021-8 #### MARGO RICE L ([id number]) [facility] ([facility]) [address] [place] [address] MCH (RBC) [Entitic mass] 28.4 pg Normal 26.0-34.0 [facility] Comment on above: Performed By: #### 5 7021-8 #### MARGO Brown ([id number]) [facility] ([facility]) [address] [place] [address] 13696 MCHC (RBC) [Mass/Vol] 31.3 g/dL Low 32.0-36.0 [facility] Comment on above: Performed By: #### 5 7021-8 #### MARGO Brown ([id number]) [facility] ([facility]) [address] [place] [address] 54666 MCV (RBC) [Entitic vol] 91 fL Normal 80-100 [facility] Comment on above: Performed By: #### 5 7021-8 #### MARGO Brown ([id number]) [facility] ([facility]) [address] [place] [address] 37202 Monocytes (Bld) [#/Vol] 0.98 x10*3/uL High 0.05-0.80 [facility] Comment on above: Performed By: #### 5 7021-8 #### MARGO Brown ([id number]) [facility] ([facility]) [address] [place] [address] 48285 Monocytes/100 WBC (Bld) 11.8 % Normal 2.0-10.0 [facility] Comment on above: Performed By: #### 5 7021-8 #### MARGO RICE L ([id number]) [facility] ([facility]) [address] [place] [address] 16439 Neutrophils (Bld) [#/Vol] 3.91 x10*3/uL Normal 1.60-5.50 [facility] Comment on above: Result Comment: Perc ent differential counts (%) should be interpreted in the context of the absolute cell counts (cells/uL). Performed By: #### 5 7021-8 #### MARGO Brown ([id number]) [facility] ([facility]) [address] [place] [address] 90320 Neutrophils/100 WBC (Bld) 47.0 % Normal 40.0-80.0 [facility] Comment on above: Performed By: #### 5 7021-8 #### MARGO Brown ([id number]) [facility] ([facility]) [address] [place] [address] 67362 Nucleated RBC/100 WBC (Bld) [Ratio] 0.0 /100 WBCs Normal 0.0-0.0 [facility] Comment on above: Performed By: #### 5 7021-8 #### MARGO Brown ([id number]) [facility] ([facility]) [address] [place] [address] 50409 Platelets (Bld) [#/Vol] 153 x10*3/uL Normal 150-450 [facility] Comment on above: Performed By: #### 5 7021-8 #### MARGO Brown ([id number]) [facility] ([facility]) [address] [place] [address] 73313 RBC (Bld) [#/Vol] 4.09 x10*6/uL Normal 4.00-5.20 [facility] Comment on above: Performed By: #### 5 7021-8 #### MARGO Brown ([id number]) [facility] ([facility]) [address] [place] [address] 68563 WBC (Bld) [#/Vol] 8.3 x10*3/uL Normal 4.4-11.3 [facility] Comment on above: Performed By: #### 5 7021-8 #### MARGO Brown ([id number]) [facility] ([facility]) [address] [place] [address] 75506 Comprehensive metabolic 2000 panelon 06-19-2023 Albumin BCP dye [Mass/Vol] 3.8 g/dL Normal 3.4-5.0 [facility] Comment on above: Performed By: #### 2 4323-8 #### MARGO Brown ([id number]) [facility] ([facility]) [address] [place] [address] ALP [Catalytic activity/Vol] 57 U/L Normal 33-136 [facility] Comment on above: Performed By: #### 2 4323-8 #### MARGO Brown ([id number]) [facility] ([facility]) [address] [place] [address] ALT With P-5'-P [Catalytic activity/Vol] 17 U/L Normal 7-45 [facility] Comment on above: Result Comment: Carlota ents treated with Sulfasalazine may generate falsely decreased results for ALT. Performed By: #### 2 4323-8 #### MARGO Brown ([id number]) [facility] ([facility]) [address] [place] [address] 04449 Anion gap [Moles/Vol] 11 mmol/L Normal 10-20 [facility] Comment on above: Performed By: #### 2 4323-8 #### MARGO Brown ([id number]) [facility] ([facility]) [address] [place] [address] AST With P-5'-P [Catalytic activity/Vol] 16 U/L Normal 9-39 [facility] Comment on above: Performed By: #### 2 4323-8 #### MARGO Brown ([id number]) [facility] ([facility]) [address] [place] [address] Bilirubin [Mass/Vol] 0.7 mg/dL Normal 0.0-1.2 [facility] Comment on above: Performed By: #### 2 4323-8 #### MARGO Brown ([id number]) [facility] ([facility]) [id number] [place] [address] 61999 Calcium [Mass/Vol] 9.2 mg/dL Normal 8.6-10.6 [facility] Comment on above: Performed By: #### 2 4323-8 #### MARGO Brown ([id number]) [facility] ([facility]) [address] [place] [address] [place] [address] Chloride [Moles/Vol] 107 mmol/L Normal 98-107 [facility] Comment on above: Performed By: #### 2 4323-8 #### MARGO Brown ([id number]) [facility] ([facility]) [address] [place] [address] CO2 [Moles/Vol] 28 mmol/L Normal 21-32 [facility] Comment on above: Performed By: #### 2 4323-8 #### MARGO Brown ([id number]) [facility] ([facility]) [address] [place] [address] Creatinine [Mass/Vol] 1.56 mg/dL High 0.50-1.05 [facility] Comment on above: Performed By: #### 2 4323-8 #### MARGO Brown ([id number]) [facility] ([facility]) [address] [place] [address] 94983 Glomerular filtration rate/1.73 sq M.predicted 32 mL/min/1.73m*2 Low >60 [facility] Comment on above: Result Comment: Calc ulations of estimated GFR are performed using the 2020 CKD-EPI Study Refit equation without the race variable for the IDMS-Traceable creatinine methods. https://jasn.asnjournals.org/content//ASN.73043 18601 Performed By: #### 2 4323-8 #### MARGO Brown ([id number]) [facility] ([facility]) [address] [place] [address] Glucose [Mass/Vol] 119 mg/dL High 74-99 [facility] Comment on above: Performed By: #### 2 4323-8 #### MARGO Brown ([id number]) [facility] ([facility]) [address] [place] [address] Potassium [Moles/Vol] 4.8 mmol/L Normal 3.5-5.3 [facility] Comment on above: Performed By: #### 2 4323-8 #### MARGO Brown ([id number]) [facility] ([facility]) [address] [place] [address] Protein [Mass/Vol] 6.3 g/dL Low 6.4-8.2 [facility] Comment on above: Performed By: #### 2 4323-8 #### MAROG Brown ([id number]) [facility] ([facility]) [address] [place] [address] Sodium [Moles/Vol] 141 mmol/L Normal 136-145 [facility] Comment on above: Performed By: #### 2 4323-8 #### MARGO Brown ([id number]) [facility] ([facility]) [address] [place] [address] Urea nitrogen [Mass/Vol] 27 mg/dL High 6-23 [facility] Comment on above: Performed By: #### 2 4323-8 #### MARGO Brown ([id number]) [facility] ([facility]) [address] [place] [address]377 Ferritinon 06-19-2023 Ferritin [Mass/Vol] 35 ng/mL Normal 8-150 [facility] Comment on above: Performed By: #### 2 276-4 #### MARGO Brown ([id number]) [facility] ([facility]) [address] [place] [address]5920 HbA1c (Bld) [Mass fraction]o n 06-19-2023 Average glucose Estimated from glycated hemoglobin (Bld) [Mass/Vol] 134 mg/dL Normal Not Established [facility] Comment on above: Order Comment: Diagn osis of Diabetes-Adults Non-Diabetic: < or = 5.6% Increased risk for developing diabetes: 5.7-6.4% Diagnostic of diabetes: > or = 6.5% Monitoring of Diabetes Age (y)....................... Therapeutic Goal (%) Adults: >18.........................<7.0 Pediatrics: 13-18...................<7.5 Pediatrics: 7-12....................<8.0 Pediatrics: 0-6..................... 7.5-8.5 [employer]. Diabetes Care 33(S1)Feb 2009 Performed By: #### 4 548-4 #### MARGO Brown ([id number]) [facility] ([facility]) [address] [place] [address] Hemoglobin A1c/Hemoglobin.to josue 06-19-2023 HbA1c (Bld) [Mass fraction] 6.3 % High see below [facility] Comment on above: Order Comment: Diagn osis of Diabetes-Adults Non-Diabetic: < or = 5.6% Increased risk for developing diabetes: 5.7-6.4% Diagnostic of diabetes: > or = 6.5% Monitoring of Diabetes Age (y)....................... Therapeutic Goal (%) Adults: >18.........................<7.0 Pediatrics: 13-18...................<7.5 Pediatrics: 7-12....................<8.0 Pediatrics: 0-6..................... 7.5-8.5 [employer]. Diabetes Care 33(S1)Feb 2009 Performed By: #### 4 548-4 #### MARGO Brown ([id number]) [facility] ([facility]) [address] [place] [address] Iron and Iron binding capaci ty panelon 06-19-2023 Iron [Mass/Vol] 49 ug/dL Normal 35-150 [facility] Comment on above: Performed By: #### 5 0190-8 #### MARGO RIVERATZER L ([id number]) [facility] ([facility]) [address] [place] [address] 51078 Iron binding capacity [Mass/Vol] 375 ug/dL Normal 240-445 [facility] Comment on above: Performed By: #### 5 0190-8 #### MARGO MULLENMOTZER L ([id number]) [facility] ([facility]) [address] [place] [address] 91308 Iron binding capacity.unsaturated [Mass/Vol] 326 ug/dL Normal 110-370 [facility] Comment on above: Performed By: #### 5 0190-8 #### MARGO MULLENMOTZER L ([id number]) [facility] ([facility]) [address] [place] [address] 30275 Iron saturation [Mass fraction] 13 % Low 25-45 [facility] Comment on above: Performed By: #### 5 0190-8 #### MARGO MULLENMOTZER L ([id number]) [facility] ([facility]) [address] [place] [address] 06740 Lipid 1996 panelon 4 Cholesterol [Mass/Vol] 98 mg/dL Normal 0-199 [facility] Comment on above: Result Comment: Age Desirable Borderline High High 0-19 Y 0 - 169 170 - 199 >/= 200 20-24 Y 0 - 189 190 - 224 >/= 225 >24 Y 0 - 199 200 - 239 >/= 240 All ranges are based on fasting samples. Specific therapeutic targets will vary based on patient-specific cardiac risk. Pediatric guidelines reference:Pediatrics 2011, 128(S5).Adult guidelines reference: NCEP ATPIII Guidelines,BARBY 2001, 258:2486-97 Venipuncture immediately after or during the administration of Metamizole may lead to falsely low results. Testing should be performed immediately prior to Metamizole dosing. Performed By: #### 2 4331-1 #### MARGO MULLENMOTZER L ([id number]) [facility] ([facility]) [address] [place] [address]275 Cholesterol in HDL [Mass/Vol] 42.9 mg/dL Normal [facility] Comment on above: Result Comment: Age Very Low Low Normal High 0-19 Y < 35 < 40 40-45 ---- 20-24 Y ---- < 40 >45 ---- >24 Y ---- < 40 40-60 >60 Performed By: #### 2 4331-1 #### MARGO Brown ([id number]) [facility] ([facility]) [address] [place] [address] 50104 Cholesterol in LDL [Mass/Vol] 39 mg/dL Normal <=99 [facility] Comment on above: Result Comment: Near Borderline AGE Desirable Optimal High High Very High 0-19 Y 0 - 109 --- 110-129 >/= 130 ---- 20-24 Y 0 - 119 --- 120-159 >/= 160 ---- >24 Y 0 - 99 100-129 130-159 160-189 >/=190 Performed By: #### 2 4331-1 #### MARGO Brown ([id number]) [facility] ([facility]) [address] [place] [address] 26713 Cholesterol in VLDL [Mass/Vol] 17 mg/dL Normal 0-40 [facility] Comment on above: Performed By: #### 2 4331-1 #### MARGO Brown ([id number]) [facility] ([facility]) [address] [place] [address] 33078 CHOLESTEROL/HDL RATIO 2.3 Normal [facility] Comment on above: Result Comment: Ref Values Desirable < 3.4 High Risk > 5.0 Performed By: #### 2 4331-1 #### MARGO Brown ([id number]) [facility] ([facility]) [address] [place] [address] 63799 NON HDL CHOLESTEROL 55 mg/dL Normal 0-149 [facility] Comment on above: Result Comment: Age Desirable Borderline High High Very High 0-19 Y 0 - 119 120 - 144 >/= 145 >/= 160 20-24 Y 0 - 149 150 - 189 >/= 190 ---- >24 Y 30 mg/dL above LDL Cholesterol goal Performed By: #### 2 4331-1 #### MARGO Brown ([id number]) [facility] ([facility]) [address] [place], [place] [address] Triglyceride [Mass/Vol] 83 mg/dL Normal 0-149 [facility] Comment on above: Result Comment: Age Desirable Borderline High High Very High 0 D-90 D 19 - 174 ---- ---- ---- 91 D- 9 Y 0 - 74 75 - 99 >/= 100 ---- 10-19 Y 0 - 89 90 - 129 >/= 130 ---- 20-24 Y 0 - 114 115 - 149 >/= 150 ---- >24 Y 0 - 149 150 - 199 200- 499 >/= 500 Venipuncture immediately after or during the administration of Metamizole may lead to falsely low results. Testing should be performed immediately prior to Metamizole dosing. Performed By: #### 2 4331-1 #### MARGO Brown ([id number]) [facility] ([facility]) [address] [place], [place] [address] CT HEAD WO IV CONTRASTon CT HEAD WO IV CONTRAST Interpreted By: Kait Pope and Bera Kaustav STUDY: CT HEAD WO IV CONTRAST; 12/20/2022 10:13 am INDICATION: Signs/Symptoms:SDH. COMPARISON: CT head without contrast on 11/29/2022 ACCESSION NUMBER(S): [id number] ORDERING CLINICIAN: ERICA THOMPSON TECHNIQUE: Noncontrast axial CT scan of head was performed. Angled reformats in brain and bone windows were generated. The images were reviewed in bone, brain, blood and soft tissue windows. FINDINGS: CSF Spaces: There is mild disproportionate prominence of the ventricles, when compared to the sulci, likely due to central volume loss. The basal cisterns are patent. Interval resolution of previously seen subdural hematoma along the anterior falx. There is no extraaxial fluid collection. Parenchyma: There are mild scattered periventricular and subcortical white matter hypodensities within bilateral cerebral hemispheres, which are nonspecific, however likely relate to sequela of chronic small vessel disease. Remote infarcts versus enlarged perivascular spaces within the left insula. Remote infarct within the right occipital lobe. Otherwise, the parkinson-white differentiation is intact. There is no mass effect or midline shift. There is no intracranial hemorrhage. There is mild diffuse parenchymal volume loss. Calvarium: Changes of benign hyperostosis frontalis interna. There is mild decrease in right frontal scalp soft tissue thickening and hematoma when compared to the prior study from 11/29/2022. Paranasal sinuses and mastoids: Visualized paranasal sinuses and mastoids are clear. Carotid siphon calcifications. IMPRESSION: 1. Interval resolution of previously seen acute subdural hemorrhage along the anterior falx. No new areas of intracranial hemorrhage or other acute intracranial abnormality seen on this exam. 2. Mild residual right frontal scalp swelling/hematoma, decreased when compared to 11/29/2022. I personally reviewed the images/study and I agree with the findings of [employer] Cutting Control Clerk Dolly Hussein as stated. This study was interpreted at [place], [place]. MACRO: None Signed by: Kait Pope 12/20/2022 12:21 PM Dictation workstation: [id number] Normal [facility] Comprehensive metabolic 2000 panelon 12-11-2022 Albumin BCP dye [Mass/Vol] 3.8 g/dL Normal 3.4-5.0 [facility] Comment on above: Performed By: #### 2 4323-8 #### MARGO Brown ([id number]) [facility] ([facility]) [address] [place] [address] 99343 ALP [Catalytic activity/Vol] 55 U/L Normal 33-136 [facility] Comment on above: Performed By: #### 2 4323-8 #### MARGO Brown ([id number]) [facility] ([facility]) [address] [place] [address] 24694 ALT With P-5'-P [Catalytic activity/Vol] 15 U/L Normal 7-45 [facility] Comment on above: Result Comment: Carlota ents treated with Sulfasalazine may generate falsely decreased results for ALT. Performed By: #### 2 4323-8 #### MARGO Brown ([id number]) [facility] ([facility]) [address] [place] [address] Anion gap [Moles/Vol] 15 mmol/L Normal 10-20 [facility] Comment on above: Performed By: #### 2 4323-8 #### MARGO Brown ([id number]) [facility] ([facility]) [address] [place] [address] AST With P-5'-P [Catalytic activity/Vol] 17 U/L Normal 9-39 [facility] Comment on above: Performed By: #### 2 4323-8 #### MARGO Brown ([id number]) [facility] ([facility]) [address] [place] [address] 90338 Bilirubin [Mass/Vol] 0.5 mg/dL Normal 0.0-1.2 [facility] Comment on above: Performed By: #### 2 4323-8 #### MARGO Brown ([id number]) [facility] ([facility]) [address] [place] [address] 23961 Calcium [Mass/Vol] 9.5 mg/dL Normal 8.6-10.6 [facility] Comment on above: Performed By: #### 2 4323-8 #### MARGO Brown ([id number]) [facility] ([facility]) [address] [place] [address] 54023 Chloride [Moles/Vol] 107 mmol/L Normal 98-107 [facility] Comment on above: Performed By: #### 2 4323-8 #### MARGO Brown ([id number]) [facility] ([facility]) [address] [place] [address] 42988 CO2 [Moles/Vol] 24 mmol/L Normal 21-32 [facility] Comment on above: Performed By: #### 2 4323-8 #### MARGO Brown ([id number]) [facility] ([facility]) [address] [place] [address] 22870 Creatinine [Mass/Vol] 1.56 mg/dL High 0.50-1.05 [facility] Comment on above: Performed By: #### 2 4323-8 #### MARGO Brown ([id number]) [facility] ([facility]) [address] [place] [address] 49273 GFR/1.73 sq M.predicted MDRD (S/P/Bld) [Vol rate/Area] 32 mL/min/1.73m*2 Low >60 [facility] Comment on above: Result Comment: Calc ulations of estimated GFR are performed using the 2020 CKD-EPI Study Refit equation without the race variable for the IDMS-Traceable creatinine methods. https://jasn.asnjournals.org/content/early//ASN.19266 09895 Performed By: #### 2 4323-8 #### MARGO Brown ([id number]) [facility] ([facility]) [address] [place] [address] 67538 Glucose [Mass/Vol] 144 mg/dL High 74-99 [facility] Comment on above: Performed By: #### 2 4323-8 #### MARGO Brown ([id number]) [facility] ([facility]) [address] [place] [address] 65527 Potassium [Moles/Vol] 5.0 mmol/L Normal 3.5-5.3 [facility] Comment on above: Performed By: #### 2 4323-8 #### MARGO Brown ([id number]) [facility] ([facility]) [address] [place] [address] 62497 Protein [Mass/Vol] 6.2 g/dL Low 6.4-8.2 [facility] Comment on above: Performed By: #### 2 4323-8 #### MARGO Brown ([id number]) [facility] ([facility]) [address] [place] [address] 84481 Sodium [Moles/Vol] 141 mmol/L Normal 136-145 [facility] Comment on above: Performed By: #### 2 4323-8 #### MARGO Brown ([id number]) [facility] ([facility]) [address] [place] [address] 05429 Urea nitrogen [Mass/Vol] 26 mg/dL High 6-23 [facility] Comment on above: Performed By: #### 2 4323-8 #### MARGO Brown ([id number]) [facility] ([facility]) [address] [place] [phone] HbA1c (Bld) [Mass fraction]o n 12-11-2022 Average glucose Estimated from glycated hemoglobin (Bld) [Mass/Vol] 128 mg/dL Normal Not Established [facility] Comment on above: Order Comment: Diagn osis of Diabetes-Adults Non-Diabetic: < or = 5.6% Increased risk for developing diabetes: 5.7-6.4% Diagnostic of diabetes: > or = 6.5% Monitoring of Diabetes Age (y)....................... Therapeutic Goal (%) Adults: >18.........................<7.0 Pediatrics: 13-18...................<7.5 Pediatrics: 7-12....................<8.0 Pediatrics: 0-6..................... 7.5-8.5 [employer]. Diabetes Care 33(S1)Feb 2009 Performed By: #### 4 548-4 #### MARGO Brown ([id number]) [facility] ([facility]) [address] [place] [phone] Hemoglobin A1c/Hemoglobin.to josue 12-11-2022 HbA1c (Bld) [Mass fraction] 6.1 % High see below [facility] Comment on above: Order Comment: Diagn osis of Diabetes-Adults Non-Diabetic: < or = 5.6% Increased risk for developing diabetes: 5.7-6.4% Diagnostic of diabetes: > or = 6.5% Monitoring of Diabetes Age (y)....................... Therapeutic Goal (%) Adults: >18.........................<7.0 Pediatrics: 13-18...................<7.5 Pediatrics: 7-12....................<8.0 Pediatrics: 0-6..................... 7.5-8.5 [employer]. Diabetes Care 33(S1), Feb 2009 Performed By: #### 4 548-4 #### MARGO Brown ([id number]) [facility] ([facility]) [address] [place] [address] 54522 Lipid 1996 panelon 3 Cholesterol [Mass/Vol] 96 mg/dL Normal 0-199 [facility] Comment on above: Result Comment: Age Desirable Borderline High High 0-19 Y 0 - 169 170 - 199 >/= 200 20-24 Y 0 - 189 190 - 224 >/= 225 >24 Y 0 - 199 200 - 239 >/= 240 All ranges are based on fasting samples. Specific therapeutic targets will vary based on patient-specific cardiac risk. Pediatric guidelines reference:Pediatrics 2011, 128(S5).Adult guidelines reference: NCEP ATPIII Guidelines,BARBY 2001, 258:2486-97 Venipuncture immediately after or during the administration of Metamizole may lead to falsely low results. Testing should be performed immediately prior to Metamizole dosing. Performed By: #### 2 4331-1 #### MARGO Brown ([id number]) [facility] ([facility]) [address] [place] [address] Cholesterol in HDL [Mass/Vol] 37.0 mg/dL Normal [facility] Comment on above: Result Comment: Age Very Low Low Normal High 0-19 Y < 35 < 40 40-45 ---- 20-24 Y ---- < 40 >45 ---- >24 Y ---- < 40 40-60 >60 Performed By: #### 2 4331-1 #### MARGO Brown ([id number]) [facility] ([facility]) [address] [place] [address] Cholesterol in LDL [Mass/Vol] 35 mg/dL Normal <=99 [facility] Comment on above: Result Comment: Near Borderline AGE Desirable Optimal High High Very High 0-19 Y 0 - 109 --- 110-129 >/= 130 ---- 20-24 Y 0 - 119 --- 120-159 >/= 160 ---- >24 Y 0 - 99 100-129 130-159 160-189 >/=190 Performed By: #### 2 4331-1 #### MARGO Brown ([id number]) [facility] ([facility]) [address] [place] [address] 97609 Cholesterol in VLDL [Mass/Vol] 24 mg/dL Normal 0-40 [facility] Comment on above: Performed By: #### 2 4331-1 #### MARGO Brown ([id number]) [facility] ([facility]) [address] [place] [address] 69562 CHOLESTEROL/HDL RATIO 2.6 Normal [facility] Comment on above: Result Comment: Ref Values Desirable < 3.4 High Risk > 5.0 Performed By: #### 2 4331-1 #### MARGO Brown ([id number]) [facility] ([facility]) [address] [place] [address] 84284 NON HDL CHOLESTEROL 59 mg/dL Normal 0-149 [facility] Comment on above: Result Comment: Age Desirable Borderline High High Very High 0-19 Y 0 - 119 120 - 144 >/= 145 >/= 160 20-24 Y 0 - 149 150 - 189 >/= 190 ---- >24 Y 30 mg/dL above LDL Cholesterol goal Performed By: #### 2 4331-1 #### MARGO Brown ([id number]) [facility] ([facility]) [address] [place] [address] 82729 Triglyceride [Mass/Vol] 119 mg/dL Normal 0-149 [facility] Comment on above: Result Comment: Age Desirable Borderline High High Very High 0 D-90 D 19 - 174 ---- ---- ---- 91 D- 9 Y 0 - 74 75 - 99 >/= 100 ---- 10-19 Y 0 - 89 90 - 129 >/= 130 ---- 20-24 Y 0 - 114 115 - 149 >/= 150 ---- >24 Y 0 - 149 150 - 199 200- 499 >/= 500 Venipuncture immediately after or during the administration of Metamizole may lead to falsely low results. Testing should be performed immediately prior to Metamizole dosing. Performed By: #### 2 4331-1 #### MARGO Brown ([id number]) [facility] ([facility]) [address] [place] [address] Basic metabolic 2000 panelon 12-02-2022 Anion gap [Moles/Vol] 11 mmol/L 10 - 20 mmol/L [facility] Calcium [Mass/Vol] 8.9 mg/dL 8.6 - 10. 3 mg/dL [facility] Chloride [Moles/Vol] 107 mmol/L 98 - 10 7 mmol/L [facility] CO2 [Moles/Vol] 26 mmol/L 21 - 32 mmol/L [facility] Creatinine [Mass/Vol] 1.70 mg/dL High 0.50 - 1.05 mg/dL [facility] GFR/1.73 sq M.predicted MDRD (S/P/Bld) [Vol rate/Area] 29 mL/min/{1.73_m2} Low - PINF [facility] Comment on above: Calculations of stevo mated GFR are performed using the 2020 CKD-EPI Study Refit equation without the race variable for the IDMS-Traceable creatinine methods. https://jasn.asnjournals.org/content//ASN.82467 51986 Glucose [Mass/Vol] 102 mg/dL High 74 - 99 mg/dL [facility] Interpretation and review of laboratory results Abnormal [facility] Potassium [Moles/Vol] 4.5 mmol/L 3.5 - 5.3 mmol/L [facility] Sodium [Moles/Vol] 139 mmol/L 136 - 145 mmol/L [facility] Urea nitrogen [Mass/Vol] 34 mg/dL High 6 - 23 mg/dL [facility] Anion gap [Moles/Vol] 11 mmol/L Normal 10-20 [facility] Comment on above: Performed By: #### 2 4321-2 ####JANE BOLAÑOS ([id number])[facility] ([facility])[address] [place] [address] Calcium [Mass/Vol] 8.9 mg/dL Normal 8.6-10.3 [facility] Comment on above: Performed By: #### 2 4321-2 ####JANE BOLAÑOS ([id number])[facility] ([facility])[address] [place] [address] Chloride [Moles/Vol] 107 mmol/L Normal 98-107 [facility] Comment on above: Performed By: #### 2 4321-2 ####JANE BOLAÑOS ([id number])[facility] ([facility])[address] [place] [address] CO2 [Moles/Vol] 26 mmol/L Normal 21-32 [facility] Comment on above: Performed By: #### 2 4321-2 ####JANE BOLAÑOS ([id number])[facility] ([facility])[address] [place] [address] Creatinine [Mass/Vol] 1.70 mg/dL High 0.50-1.05 [facility] Comment on above: Performed By: #### 2 4321-2 ####JANE BOLAÑOS ([id number])[facility] ([facility])[address] [place] [address] GFR/1.73 sq M.predicted MDRD (S/P/Bld) [Vol rate/Area] 29 mL/min/1.73m*2 Low >60 [facility] Comment on above: Result Comment: Calc ulations of estimated GFR are performed using the 2020 CKD-EPI Study Refit equation without the race variable for the IDMS-Traceable creatinine methods. https://darwinsn.asnjournals.org/content//ASN.91459 09812 Performed By: #### 2 4321-2 ####JANE BOLAÑOS ([id number])[facility] ([facility])[address] [place] [address] Glucose [Mass/Vol] 102 mg/dL High 74-99 [facility] Comment on above: Performed By: #### 2 4321-2 ####JANE BOLAÑOS ([id number])[facility] ([facility])[address] [place] [address] Potassium [Moles/Vol] 4.5 mmol/L Normal 3.5-5.3 [facility] Comment on above: Performed By: #### 2 4321-2 ####JANE BOLAÑOS ([id number])[facility] ([facility])[address] [place] [address] Sodium [Moles/Vol] 139 mmol/L Normal 136-145 [facility] Comment on above: Performed By: #### 2 4321-2 ####JANE BOLAÑOS ([id number])[facility] ([facility])[address] [place] [address] Urea nitrogen [Mass/Vol] 34 mg/dL High 6-23 [facility] Comment on above: Performed By: #### 2 4321-2 ####JANE BOLAÑOS ([id number])[facility] ([facility])[address] [place] [address] CBC panel Auto (Bld)on 12-02 Erythrocyte distribution width (RBC) [Ratio] 15.8 % High 11.5 - 14.5 % [facility] Hematocrit (Bld) [Volume fraction] 39.1 % 36.0 - 46.0 % [facility] Hemoglobin (Bld) [Mass/Vol] 12.3 g/dL 12.0 - 16.0 g/dL [facility] Interpretation and review of laboratory results Abnormal [facility] MCH (RBC) [Entitic mass] 28.3 pg 26.0 - 34.0 pg [facility] MCHC (RBC) [Mass/Vol] 31.5 g/dL Low 32.0 - 36.0 g/dL [facility] MCV (RBC) [Entitic vol] 90 fL 80 - 100 fL [facility] Nucleated RBC/100 WBC (Bld) [Ratio] 0.0 % [facility] Platelet mean volume (Bld) [Entitic vol] 12.2 fL High 7.5 - 11.5 fL [facility] Platelets (Bld) [#/Vol] 161 10*3/uL [facility] RBC (Bld) [#/Vol] 4.34 10*6/uL [facility] WBC (Bld) [#/Vol] 8.7 10*3/uL [facility] Erythrocyte distribution width (RBC) [Ratio] 15.8 % High 11.5-14.5 [facility] Comment on above: Performed By: #### 5 8410-2 ####JANE BOLAÑOS ([id number])[facility] ([facility])[address] [place] [address] Hematocrit (Bld) [Volume fraction] 39.1 % Normal 36.0-46.0 [facility] Comment on above: Performed By: #### 5 8410-2 ####JANE BOLAÑOS ([id number])[facility] ([facility])[address] [place] [address] Hemoglobin (Bld) [Mass/Vol] 12.3 g/dL Normal 12.0-16.0 [facility] Comment on above: Performed By: #### 5 8410-2 ####JANE BOLAÑOS ([id number])[facility] ([facility])[address] [place] [address] MCH (RBC) [Entitic mass] 28.3 pg Normal 26.0-34.0 [facility] Comment on above: Performed By: #### 5 8410-2 ####JANE BOLAÑOS ([id number])[facility] ([facility])[address] [place] [address] MCHC (RBC) [Mass/Vol] 31.5 g/dL Low 32.0-36.0 [facility] Comment on above: Performed By: #### 5 8410-2 ####JANE BOLAÑOS ([id number])[facility] ([facility])[address] [place] [address] MCV (RBC) [Entitic vol] 90 fL Normal 80-100 [facility] Comment on above: Performed By: #### 5 8410-2 ####JANE BOLAÑOS ([id number])[facility] ([facility])[address] [place] [address] Nucleated RBC/100 WBC (Bld) [Ratio] 0.0 /100 WBCs Normal 0.0-0.0 [facility] Comment on above: Performed By: #### 5 8410-2 ####JANE BOLAÑOS ([id number])[facility] ([facility])[address] [place] [address] Platelet mean volume (Bld) [Entitic vol] 12.2 fL High 7.5-11.5 [facility] Comment on above: Performed By: #### 5 8410-2 ####JANE BOLAÑOS ([id number])[facility] ([facility])[address] [place] [address] Platelets (Bld) [#/Vol] 161 x10*3/uL Normal 150-450 [facility] Comment on above: Performed By: #### 5 8410-2 ####JANE BOLAÑOS ([id number])[facility] ([facility])[address] [place] [address] RBC (Bld) [#/Vol] 4.34 x10*6/uL Normal 4.00-5.20 [facility] Comment on above: Performed By: #### 5 8410-2 ####JANE BOLAÑOS ([id number])[facility] ([facility])[address] [place] [address] WBC (Bld) [#/Vol] 8.7 x10*3/uL Normal 4.4-11.3 [facility] Comment on above: Performed By: #### 5 8410-2 ####JANE BOLAÑOS ([id number])[facility] ([facility])[address] [place] [address] Basic metabolic 2000 panelon 11-30-2022 Anion gap [Moles/Vol] 13 mmol/L 10 - 20 mmol/L [facility] Calcium [Mass/Vol] 9.3 mg/dL 8.6 - 10. 3 mg/dL [facility] Chloride [Moles/Vol] 109 mmol/L High 98 - 10 7 mmol/L [facility] CO2 [Moles/Vol] 24 mmol/L 21 - 32 mmol/L [facility] Creatinine [Mass/Vol] 1.49 mg/dL High 0.50 - 1.05 mg/dL [facility] GFR/1.73 sq M.predicted MDRD (S/P/Bld) [Vol rate/Area] 34 mL/min/{1.73_m2} Low - PINF [facility] Comment on above: Calculations of stevo mated GFR are performed using the 2020 CKD-EPI Study Refit equation without the race variable for the IDMS-Traceable creatinine methods. https://jasn.asnjournals.org/content//ASN.07434 70185 Glucose [Mass/Vol] 123 mg/dL High 74 - 99 mg/dL [facility] Interpretation and review of laboratory results Abnormal [facility] Potassium [Moles/Vol] 4.6 mmol/L 3.5 - 5.3 mmol/L [facility] Sodium [Moles/Vol] 141 mmol/L 136 - 145 mmol/L [facility] Urea nitrogen [Mass/Vol] 27 mg/dL High 6 - 23 mg/dL [facility] Anion gap [Moles/Vol] 13 mmol/L Normal 10-20 [facility] Comment on above: Performed By: #### 2 4321-2 ####JANE BOLAÑOS ([id number])[facility] ([facility])[address] [place] [address] Calcium [Mass/Vol] 9.3 mg/dL Normal 8.6-10.3 [facility] Comment on above: Performed By: #### 2 4321-2 ####JANE BOLAÑOS ([id number])[facility] ([facility])[address] [place] [address] Chloride [Moles/Vol] 109 mmol/L High 98-107 [facility] Comment on above: Performed By: #### 2 4321-2 ####JANE BOLAÑOS ([id number])[facility] ([facility])[address] [place] [address] CO2 [Moles/Vol] 24 mmol/L Normal 21-32 [facility] Comment on above: Performed By: #### 2 4320-2 ####JANE BOLAÑOS ([id number])[facility] ([facility])[address] [place] [address] Creatinine [Mass/Vol] 1.49 mg/dL High 0.50-1.05 [facility] Comment on above: Performed By: #### 2 432-2 ####JANE BOLAÑOS ([id number])[facility] ([facility])[address] [place] [address] GFR/1.73 sq M.predicted MDRD (S/P/Bld) [Vol rate/Area] 34 mL/min/1.73m*2 Low >60 [facility] Comment on above: Result Comment: Calc ulations of estimated GFR are performed using the 2020 CKD-EPI Study Refit equation without the race variable for the IDMS-Traceable creatinine methods. https://jasn.asnjournals.org/content/early/ASN.90302 82460 Performed By: #### 2 432-2 ####JANE BOLAÑOS ([id number])[facility] ([facility])[address] [place] [address] Glucose [Mass/Vol] 123 mg/dL High 74-99 [facility] Comment on above: Performed By: #### 2 4321-2 ####JANE BOLAÑOS ([id number])[facility] ([facility])[address] [place] [address] Potassium [Moles/Vol] 4.6 mmol/L Normal 3.5-5.3 [facility] Comment on above: Performed By: #### 2 4321-2 ####JANE BOLAÑOS ([id number])[facility] ([facility])[address] [place] [address] Sodium [Moles/Vol] 141 mmol/L Normal 136-145 [facility] Comment on above: Performed By: #### 2 4321-2 ####JANE BOLAÑOS ([id number])[facility] ([facility])[address] [place] [address] Urea nitrogen [Mass/Vol] 27 mg/dL High 6-23 [facility] Comment on above: Performed By: #### 2 4321-2 ####JANE BOLAÑOS ([id number])[facility] ([facility])[address] [place] [address] CBC panel Auto (Bld)on 11-30 Erythrocyte distribution width (RBC) [Ratio] 15.8 % High 11.5 - 14.5 % [facility] Hematocrit (Bld) [Volume fraction] 37.6 % 36.0 - 46.0 % [facility] Hemoglobin (Bld) [Mass/Vol] 11.7 g/dL Low 12.0 - 16.0 g/dL [facility] Interpretation and review of laboratory results Abnormal [facility] MCH (RBC) [Entitic mass] 28.5 pg 26.0 - 34.0 pg [facility] MCHC (RBC) [Mass/Vol] 31.1 g/dL Low 32.0 - 36.0 g/dL [facility] MCV (RBC) [Entitic vol] 92 fL 80 - 100 fL [facility] Nucleated RBC/100 WBC (Bld) [Ratio] 0.0 % [facility] Platelet mean volume (Bld) [Entitic vol] 11.3 fL 7.5 - 11.5 fL [facility] Platelets (Bld) [#/Vol] 151 10*3/uL [facility] RBC (Bld) [#/Vol] 4.10 10*6/uL [facility] WBC (Bld) [#/Vol] 7.9 10*3/uL [facility] Erythrocyte distribution width (RBC) [Ratio] 15.8 % High 11.5-14.5 [facility] Comment on above: Performed By: #### 5 8410-2 ####JANE BOLAÑOS ([id number])[facility] ([facility])[address] [place] [address] Hematocrit (Bld) [Volume fraction] 37.6 % Normal 36.0-46.0 [facility] Comment on above: Performed By: #### 5 8410-2 ####JANE BOLAÑOS ([id number])[facility] ([facility])[address] [place] [address] Hemoglobin (Bld) [Mass/Vol] 11.7 g/dL Low 12.0-16.0 [facility] Comment on above: Performed By: #### 5 8410-2 ####JANE BOLAÑOS ([id number])[facility] ([facility])[address] [place] [address] MCH (RBC) [Entitic mass] 28.5 pg Normal 26.0-34.0 [facility] Comment on above: Performed By: #### 5 8410-2 ####JANE BOLAÑOS ([id number])[facility] ([facility])[address] [place] [address] MCHC (RBC) [Mass/Vol] 31.1 g/dL Low 32.0-36.0 [facility] Comment on above: Performed By: #### 5 8410-2 ####JANE BOLAÑOS ([id number])[facility] ([facility])[address] [place] [address] MCV (RBC) [Entitic vol] 92 fL Normal 80-100 [facility] Comment on above: Performed By: #### 5 8410-2 ####JANE BOLAÑOS ([id number])[facility] ([facility])[address] [place] [address] Nucleated RBC/100 WBC (Bld) [Ratio] 0.0 /100 WBCs Normal 0.0-0.0 [facility] Comment on above: Performed By: #### 5 8410-2 ####JANE BOLAÑOS ([id number])[facility] ([facility])[address] [place] [address] Platelet mean volume (Bld) [Entitic vol] 11.3 fL Normal 7.5-11.5 [facility] Comment on above: Performed By: #### 5 8410-2 ####JANE BOLAÑOS ([id number])[facility] ([facility])[address] [place] [address] Platelets (Bld) [#/Vol] 151 x10*3/uL Normal 150-450 [facility] Comment on above: Performed By: #### 5 8410-2 ####JANE BOLAÑOS ([id number])[facility] ([facility])[address] [place] [address] RBC (Bld) [#/Vol] 4.10 x10*6/uL Normal 4.00-5.20 [facility] Comment on above: Performed By: #### 5 8410-2 ####JANE BOLAÑOS ([id number])[facility] ([facility])[address] [place] [address] WBC (Bld) [#/Vol] 7.9 x10*3/uL Normal 4.4-11.3 [facility] Comment on above: Performed By: #### 5 8410-2 ####JANE BOLAÑOS ([id number])[facility] ([facility])[address] [place] [address] ECG 12 LeadOrdered By: Erica Flores on 11-30-2022 [facility] Glucose Test strip manual (B ld) [Mass/Vol]on 11-30-2022 Glucose [Mass/Vol] 126 mg/dL High 74 - 99 mg/dL [facility] Interpretation and review of laboratory results Abnormal [facility] Glucose [Mass/Vol] 126 mg/dL High 74-99 [facility] Comment on above: Performed By: #### 2 341-6 ####JANE BOLAÑOS ([id number])[facility] ([facility])[address] [place] [address] Glucose [Mass/Vol] 122 mg/dL High 74 - 99 mg/dL [facility] Interpretation and review of laboratory results Abnormal [facility] Glucose [Mass/Vol] 122 mg/dL High 74-99 [facility] Comment on above: Performed By: #### 2 341-6 #### JANE BOLAÑOS ([id number]) [facility] ([facility]) [address] [place] [address] Basic metabolic 2000 panelon 11-29-2022 Anion gap [Moles/Vol] 11 mmol/L 10 - 20 mmol/L [facility] Calcium [Mass/Vol] 9.2 mg/dL 8.6 - 10. 3 mg/dL [facility] Chloride [Moles/Vol] 106 mmol/L 98 - 10 7 mmol/L [facility] CO2 [Moles/Vol] 27 mmol/L 21 - 32 mmol/L [facility] Creatinine [Mass/Vol] 1.57 mg/dL High 0.50 - 1.05 mg/dL [facility] GFR/1.73 sq M.predicted MDRD (S/P/Bld) [Vol rate/Area] 32 mL/min/{1.73_m2} Low - PINF [facility] Comment on above: Calculations of stevo mated GFR are performed using the 2020 CKD-EPI Study Refit equation without the race variable for the IDMS-Traceable creatinine methods. https://jasn.asnjournals.org/content/early//ASN.44948 68956 Glucose [Mass/Vol] 119 mg/dL High 74 - 99 mg/dL [facility] Interpretation and review of laboratory results Abnormal [facility] Potassium [Moles/Vol] 4.3 mmol/L 3.5 - 5.3 mmol/L [facility] Sodium [Moles/Vol] 140 mmol/L 136 - 145 mmol/L [facility] Urea nitrogen [Mass/Vol] 30 mg/dL High 6 - 23 mg/dL [facility] Anion gap [Moles/Vol] 11 mmol/L Normal 10-20 [facility] Comment on above: Performed By: #### 2 4321-2 #### JANE BOLAÑOS ([id number]) [facility] ([facility]) [address] [place] [address] Calcium [Mass/Vol] 9.2 mg/dL Normal 8.6-10.3 [facility] Comment on above: Performed By: #### 2 4321-2 #### JANE BOLAÑOS ([id number]) [facility] ([facility]) [address] [place] [place] [address] Chloride [Moles/Vol] 106 mmol/L Normal 98-107 [facility] Comment on above: Performed By: #### 2 4321-2 #### JANE BOLAÑOS ([id number]) [facility] ([facility]) [address] [place] [address] CO2 [Moles/Vol] 27 mmol/L Normal 21-32 [facility] Comment on above: Performed By: #### 2 4321-2 #### JANE BOLAÑOS ([id number]) [facility] ([facility]) [address] [place] [address] Creatinine [Mass/Vol] 1.57 mg/dL High 0.50-1.05 [facility] Comment on above: Performed By: #### 2 4321-2 #### JANE BOLAÑOS ([id number]) [facility] ([facility]) [address] [place] [address] GFR/1.73 sq M.predicted MDRD (S/P/Bld) [Vol rate/Area] 32 mL/min/1.73m*2 Low >60 [facility] Comment on above: Result Comment: Calc ulations of estimated GFR are performed using the 2020 CKD-EPI Study Refit equation without the race variable for the IDMS-Traceable creatinine methods. https://jasn.asnjournals.org/content//ASN.55776 06691 Performed By: #### 2 4321-2 #### JANE BOLAÑOS ([id number]) [facility] ([facility]) [address] [place] [address] Glucose [Mass/Vol] 119 mg/dL High 74-99 [facility] Comment on above: Performed By: #### 2 4321-2 #### JAEN BOLAÑOS ([id number]) [facility] ([facility]) [address] [place] [address] Potassium [Moles/Vol] 4.3 mmol/L Normal 3.5-5.3 [facility] Comment on above: Performed By: #### 2 4321-2 #### JANE BOLAÑOS ([id number]) [facility] ([facility]) [address] [place] [address] Sodium [Moles/Vol] 140 mmol/L Normal 136-145 [facility] Comment on above: Performed By: #### 2 4321-2 #### JANE BOLAÑOS ([id number]) [facility] ([facility]) [address] [place] [address] Urea nitrogen [Mass/Vol] 30 mg/dL High 6-23 [facility] Comment on above: Performed By: #### 2 4321-2 #### JANE BOLAÑOS ([id number]) [facility] ([facility]) [address] [place] [address] Blood type and Indirect anti body screen panel (Bld)on 11-29-2022 ABO group Nom (Bld) O [facility] Blood group antibody screen Ql Negative [facility] D Ag Ql (Bld) Positive [facility] ABO group Nom (Bld) O Normal [facility] Comment on above: Performed By: #### 3 4532-2 #### JANE BOLAÑOS ([id number]) [facility] ([facility]) [address] [place] [address] [place] Blood group antibody screen Ql Negative [facility] Comment on above: Performed By: #### 3 4532-2 #### JANE BOLAÑOS ([id number]) [facility] ([facility]) [address] [place] [address] [place] D Ag Ql (Bld) Positive [facility] Comment on above: Performed By: #### 3 4532-2 #### JANE BOLAÑOS ([id number]) [facility] ([facility]) [address] [place] [address] [place] CBC W Auto Differential pane l (Bld)on 11-29-2022 Basophils (Bld) [#/Vol] 0.04 10*3/uL [facility] Basophils/100 WBC (Bld) 0.5 % 0.0 - 2.0 % [facility] Eosinophils (Bld) [#/Vol] 0.21 10*3/uL [facility] Eosinophils/100 WBC (Bld) 2.6 % 0.0 - 6.0 % [facility] Erythrocyte distribution width (RBC) [Ratio] 15.4 % High 11.5 - 14.5 % [facility] Hematocrit (Bld) [Volume fraction] 39.3 % 36.0 - 46.0 % [facility] Hemoglobin (Bld) [Mass/Vol] 12.4 g/dL 12.0 - 16.0 g/dL [facility] Immature granulocytes (Bld) [#/Vol] 0.03 10*3/uL [facility] Immature granulocytes/100 WBC (Bld) 0.4 % 0.0 - 0.9 % [facility] Comment on above: Immature Granulocyte Count (IG) includes promyelocytes, myelocytes and metamyelocytes but does not include bands. Percent differential counts (%) should be interpreted in the context of the absolute cell counts (cells/UL). Interpretation and review of laboratory results Abnormal [facility] Lymphocytes (Bld) [#/Vol] 2.33 10*3/uL [facility] Lymphocytes/100 WBC (Bld) 29.1 % 13.0 - 44.0 % [facility] MCH (RBC) [Entitic mass] 28.7 pg 26.0 - 34.0 pg [facility] MCHC (RBC) [Mass/Vol] 31.6 g/dL Low 32.0 - 36.0 g/dL [facility] MCV (RBC) [Entitic vol] 91 fL 80 - 100 fL [facility] Monocytes (Bld) [#/Vol] 0.87 10*3/uL High [facility] Monocytes/100 WBC (Bld) 10.9 % 2.0 - 10.0 % [facility] Neutrophils (Bld) [#/Vol] 4.52 10*3/uL [facility] Comment on above: Percent differential counts (%) should be interpreted in the context of the absolute cell counts (cells/uL). Neutrophils/100 WBC (Bld) 56.5 % 40.0 - 80.0 % [facility] Nucleated RBC/100 WBC (Bld) [Ratio] 0.0 % [facility] Platelet mean volume (Bld) [Entitic vol] 12.0 fL High 7.5 - 11.5 fL [facility] Platelets (Bld) [#/Vol] 147 10*3/uL Low [facility] RBC (Bld) [#/Vol] 4.32 10*6/uL [facility] WBC (Bld) [#/Vol] 8.0 10*3/uL [facility] Basophils (Bld) [#/Vol] 0.04 x10*3/uL Normal 0.00-0.10 [facility] Comment on above: Performed By: #### 5 7021-8 #### JANE BOLAÑOS ([id number]) [facility] ([facility]) [address] [place] [address] Basophils/100 WBC (Bld) 0.5 % Normal 0.0-2.0 [facility] Comment on above: Performed By: #### 5 7021-8 #### JANE BOLAÑOS ([id number]) [facility] ([facility]) [address] [place] [address] Eosinophils (Bld) [#/Vol] 0.21 x10*3/uL Normal 0.00-0.40 [facility] Comment on above: Performed By: #### 5 7021-8 #### JANE BOLAÑOS ([id number]) [facility] ([facility]) [address] [place] [address] Eosinophils/100 WBC (Bld) 2.6 % Normal 0.0-6.0 [facility] Comment on above: Performed By: #### 5 7021-8 #### JANE BOLAÑOS ([id number]) [facility] ([facility]) [address] [place] [address] Erythrocyte distribution width (RBC) [Ratio] 15.4 % High 11.5-14.5 [facility] Comment on above: Performed By: #### 5 7021-8 #### JANE BOLAÑOS ([id number]) [facility] ([facility]) [address] [place] [address] Hematocrit (Bld) [Volume fraction] 39.3 % Normal 36.0-46.0 [facility] Comment on above: Performed By: #### 5 7021-8 #### JANE BOLAÑOS ([id number]) [facility] ([facility]) [address] [place] [address] Hemoglobin (Bld) [Mass/Vol] 12.4 g/dL Normal 12.0-16.0 [facility] Comment on above: Performed By: #### 5 7021-8 #### JANE BOLAÑOS ([id number]) [facility] ([facility]) [address] [place] [address] Immature granulocytes (Bld) [#/Vol] 0.03 x10*3/uL Normal 0.00-0.50 [facility] Comment on above: Performed By: #### 5 7021-8 #### JANE BOLAÑOS ([id number]) [facility] ([facility]) [address] [place] [address] Immature granulocytes/100 WBC (Bld) 0.4 % Normal 0.0-0.9 [facility] Comment on above: Result Comment: Jennifer ture Granulocyte Count (IG) includes promyelocytes, myelocytes and metamyelocytes but does not include bands. Percent differential counts (%) should be interpreted in the context of the absolute cell counts (cells/UL). Performed By: #### 5 7021-8 #### JANE BOLAÑOS ([id number]) [facility] ([facility]) [address] [place] [address] Lymphocytes (Bld) [#/Vol] 2.33 x10*3/uL Normal 0.80-3.00 [facility] Comment on above: Performed By: #### 5 7021-8 #### JANE BOLAÑOS ([id number]) [facility] ([facility]) [address] [place] [address] Lymphocytes/100 WBC (Bld) 29.1 % Normal 13.0-44.0 [facility] Comment on above: Performed By: #### 5 7021-8 #### JANE BOLAÑOS ([id number]) [facility] ([facility]) [address] [place] [address] MCH (RBC) [Entitic mass] 28.7 pg Normal 26.0-34.0 [facility] Comment on above: Performed By: #### 5 7021-8 #### JANE BOLAÑOS ([id number]) [facility] ([facility]) [address] [place] [address] MCHC (RBC) [Mass/Vol] 31.6 g/dL Low 32.0-36.0 [facility] Comment on above: Performed By: #### 5 7021-8 #### JANE BOLAÑOS ([id number]) [facility] ([facility]) [address] [place] [address] MCV (RBC) [Entitic vol] 91 fL Normal 80-100 [facility] Comment on above: Performed By: #### 5 7021-8 #### JANE BOLAÑOS ([id number]) [facility] ([facility]) [address] [place] [address] Monocytes (Bld) [#/Vol] 0.87 x10*3/uL High 0.05-0.80 [facility] Comment on above: Performed By: #### 5 7021-8 #### JANE BOLAÑOS ([id number]) [facility] ([facility]) [address] [place] [address] Monocytes/100 WBC (Bld) 10.9 % Normal 2.0-10.0 [facility] Comment on above: Performed By: #### 5 7021-8 #### JANE BOLAÑOS ([id number]) [facility] ([facility]) [address] [place] [address] Neutrophils (Bld) [#/Vol] 4.52 x10*3/uL Normal 1.60-5.50 [facility] Comment on above: Result Comment: Perc ent differential counts (%) should be interpreted in the context of the absolute cell counts (cells/uL). Performed By: #### 5 7021-8 #### JANE BOLAÑOS ([id number]) [facility] ([facility]) [address] [place] [address] Neutrophils/100 WBC (Bld) 56.5 % Normal 40.0-80.0 [facility] Comment on above: Performed By: #### 5 7021-8 #### JANE BOLAÑOS ([id number]) [facility] ([facility]) [address] [place] [address] Nucleated RBC/100 WBC (Bld) [Ratio] 0.0 /100 WBCs Normal 0.0-0.0 [facility] Comment on above: Performed By: #### 5 7021-8 #### JANE BOLAÑOS ([id number]) [facility] ([facility]) [address] [place] [address] Platelet mean volume (Bld) [Entitic vol] 12.0 fL High 7.5-11.5 [facility] Comment on above: Performed By: #### 5 7021-8 #### JANE BOLAÑOS ([id number]) [facility] ([facility]) [address] [place] [address] Platelets (Bld) [#/Vol] 147 x10*3/uL Low 150-450 [facility] Comment on above: Performed By: #### 5 7021-8 #### JANE BOLAÑOS ([id number]) [facility] ([facility]) [address] [place] [address] RBC (Bld) [#/Vol] 4.32 x10*6/uL Normal 4.00-5.20 [facility] Comment on above: Performed By: #### 5 7021-8 #### JANE SMALLI ([id number]) [facility] ([facility]) [address] [place] [address] WBC (Bld) [#/Vol] 8.0 x10*3/uL Normal 4.4-11.3 [facility] Comment on above: Performed By: #### 5 7021-8 #### JANE BOLAÑOS ([id number]) [facility] ([facility]) [address] [place] [address] CT CERVICAL SPINE WO IV CONT [facility] 11-29-2022 CT CERVICAL SPINE WO IV CONTRAST Interpreted By: Forrest Drew, STUDY: CT FACIAL BONES WO IV CONTRAST; CT HEAD W/O CONTRAST TRAUMA PROTOCOL; CT CERVICAL SPINE WO IV CONTRAST; 11/29/2022 4:37 pm INDICATION: Signs/Symptoms:fall , R frontal bone ecchymosis; Signs/Symptoms:Fall , right forehead hematoma, on Eliquis. COMPARISON: None. ACCESSION NUMBER(S): [id number]; [id number]; [id number] ORDERING CLINICIAN: CORBIN BORGES TECHNIQUE: Noncontrast axial CT scan of head, facial bones, and cervical spine was performed. Angled reformats in brain and bone windows were generated. The images were reviewed in bone, brain, blood and soft tissue windows. 3D volume rendered images of the facial bones were obtained and reviewed. FINDINGS: Head and facial bones: Acute subdural hematoma is seen along the interhemispheric fissure measuring up to 0.3 cm in thickness. There is no other intra/extra-axial fluid collection, mass effect, or midline shift. The ureña/white matter junction is preserved. Hypoattenuation of periventricular and subcortical white matter suggestive of chronic small vessel ischemic disease. Mild diffuse parenchymal volume loss is noted the basal cisterns are patent. The bilateral globes are intact. No acute fracture or dislocation is seen in the facial and cranial bones. Paranasal sinuses are clear. Cervical spine: There is no acute fracture or traumatic subluxation in the cervical spine. Minimal anterior slippage of C2 on C3 and C4 on C5 is most likely degenerative in etiology. Multilevel cervical spondylosis is noted. There is loss of normal cervical lordosis, which may be positional or due to muscle spasm. Prevertebral soft tissues are unremarkable. There is no apical pneumothorax. IMPRESSION: Acute subdural hematoma along the interhemispheric fissure measuring up to 0.3 cm in thickness. No midline shift. No acute fracture or dislocation in the facial and cranial bones. No acute fracture or traumatic subluxation in the cervical spine. I discussed the findings by phone with Dr. Bryan at 4:45 p.m. on 11/30/2019 Signed by: Forrest Drew 11/29/2022 4:54 PM Dictation workstation: [id number] [facility] CT FACIAL BONES WO IV CONTRA STon 11-29-2022 CT FACIAL BONES WO IV CONTRAST Interpreted By: Forrest Drew, STUDY: CT FACIAL BONES WO IV CONTRAST; CT HEAD W/O CONTRAST TRAUMA PROTOCOL; CT CERVICAL SPINE WO IV CONTRAST; 11/29/2022 4:37 pm INDICATION: Signs/Symptoms:fall , R frontal bone ecchymosis; Signs/Symptoms:Fall , right forehead hematoma, on Eliquis. COMPARISON: None. ACCESSION NUMBER(S): [id number]; [id number]; [id number] ORDERING CLINICIAN: CORBIN BORGES TECHNIQUE: Noncontrast axial CT scan of head, facial bones, and cervical spine was performed. Angled reformats in brain and bone windows were generated. The images were reviewed in bone, brain, blood and soft tissue windows. 3D volume rendered images of the facial bones were obtained and reviewed. FINDINGS: Head and facial bones: Acute subdural hematoma is seen along the interhemispheric fissure measuring up to 0.3 cm in thickness. There is no other intra/extra-axial fluid collection, mass effect, or midline shift. The ureña/white matter junction is preserved. Hypoattenuation of periventricular and subcortical white matter suggestive of chronic small vessel ischemic disease. Mild diffuse parenchymal volume loss is noted the basal cisterns are patent. The bilateral globes are intact. No acute fracture or dislocation is seen in the facial and cranial bones. Paranasal sinuses are clear. Cervical spine: There is no acute fracture or traumatic subluxation in the cervical spine. Minimal anterior slippage of C2 on C3 and C4 on C5 is most likely degenerative in etiology. Multilevel cervical spondylosis is noted. There is loss of normal cervical lordosis, which may be positional or due to muscle spasm. Prevertebral soft tissues are unremarkable. There is no apical pneumothorax. IMPRESSION: Acute subdural hematoma along the interhemispheric fissure measuring up to 0.3 cm in thickness. No midline shift. No acute fracture or dislocation in the facial and cranial bones. No acute fracture or traumatic subluxation in the cervical spine. I discussed the findings by phone with Dr. Bryan at 4:45 p.m. on 11/30/2019 Signed by: Forrest Drew 11/29/2022 4:54 PM Dictation workstation: [id number] [facility] CT HEAD W/O CONTRAST TRAUMA PROTOCOLon 11-29-2022 CT HEAD W/O CONTRAST TRAUMA PROTOCOL Interpreted By: Forrest Drew, STUDY: CT FACIAL BONES WO IV CONTRAST; CT HEAD W/O CONTRAST TRAUMA PROTOCOL; CT CERVICAL SPINE WO IV CONTRAST; 11/29/2022 4:37 pm INDICATION: Signs/Symptoms:fall , R frontal bone ecchymosis; Signs/Symptoms:Fall , right forehead hematoma, on Eliquis. COMPARISON: None. ACCESSION NUMBER(S): [id number]; [id number]; [id number] ORDERING CLINICIAN: CORBIN BORGES TECHNIQUE: Noncontrast axial CT scan of head, facial bones, and cervical spine was performed. Angled reformats in brain and bone windows were generated. The images were reviewed in bone, brain, blood and soft tissue windows. 3D volume rendered images of the facial bones were obtained and reviewed. FINDINGS: Head and facial bones: Acute subdural hematoma is seen along the interhemispheric fissure measuring up to 0.3 cm in thickness. There is no other intra/extra-axial fluid collection, mass effect, or midline shift. The ureña/white matter junction is preserved. Hypoattenuation of periventricular and subcortical white matter suggestive of chronic small vessel ischemic disease. Mild diffuse parenchymal volume loss is noted the basal cisterns are patent. The bilateral globes are intact. No acute fracture or dislocation is seen in the facial and cranial bones. Paranasal sinuses are clear. Cervical spine: There is no acute fracture or traumatic subluxation in the cervical spine. Minimal anterior slippage of C2 on C3 and C4 on C5 is most likely degenerative in etiology. Multilevel cervical spondylosis is noted. There is loss of normal cervical lordosis, which may be positional or due to muscle spasm. Prevertebral soft tissues are unremarkable. There is no apical pneumothorax. IMPRESSION: Acute subdural hematoma along the interhemispheric fissure measuring up to 0.3 cm in thickness. No midline shift. No acute fracture or dislocation in the facial and cranial bones. No acute fracture or traumatic subluxation in the cervical spine. I discussed the findings by phone with Dr. Bryan at 4:45 p.m. on 11/30/2019 Signed by: oFrrest Drew 11/29/2022 4:54 PM Dictation workstation: [id number] [facility] CT HEAD WO IV CONTRASTon CT HEAD WO IV CONTRAST Interpreted By: Michael Sharp, STUDY: CT HEAD WO IV CONTRAST; 11/29/2022 11:09 pm INDICATION: Stability scan for subdural hemorrhage. COMPARISON: CT brain 11/29/2022 at 4:24 p.m.. ACCESSION NUMBER(S): [id number] ORDERING CLINICIAN: FLORENCE BORGES TECHNIQUE: Axial noncontrast CT images of the head with coronal and sagittal reconstructions. FINDINGS: EXTRACRANIAL SOFT TISSUES: Persistent frontal scalp swelling. CALVARIUM: No depressed skull fracture. No destructive osseous lesion. Hyperostosis frontalis. PARANASAL SINUSES/MASTOIDS: The visualized paranasal sinuses and mastoid air cells are aerated. HEMORRHAGE: Persistent hyperdense thickening along the anterior aspect of the interhemispheric fissure compatible with acute subdural hemorrhage measuring up to 3 mm in maximum thickness, similar compared to prior imaging. BRAIN PARENCHYMA: Ureña-white matter interfaces are preserved. No mass effect or midline shift. There are nonspecific scattered white matter hypodensities. VENTRICLES and EXTRA-AXIAL SPACES: Normal size. OTHER FINDINGS: There are calcifications within the cavernous carotids IMPRESSION: Persistent hyperdense thickening along the anterior aspect of the interhemispheric fissure compatible with acute subdural hemorrhage measuring up to 3 mm in maximum thickness, similar compared to prior imaging. No additional new areas of hemorrhage are evident. Nonspecific scattered white matter hypodensities, which may represent sequela of small vessel ischemia. Redemonstrated frontal scalp swelling with no underlying depressed calvarial fracture. MACRO: None. Signed by: Michael Sharp 11/29/2022 11:18 PM Dictation workstation: [id number] [facility] CT Head WO contraston 2022 Persistent hyperdense thickening along the anterior aspect of the interhemispheric fissure compatible with acute subdural hemorrhage measuring up to 3 mm in maximum thickness, similar compared to prior imaging. No additional new areas of hemorrhage are evident. Nonspecific scattered white matter hypodensities, which may represent sequela of small vessel ischemia. Redemonstrated frontal scalp swelling with no underlying depressed calvarial fracture. MACRO: None. Signed by: Michael Sharp 11/29/2022 11:18 PM Dictation workstation: [id number] [facility] Interpreted By: Michael Sharp, STUDY: CT HEAD WO IV CONTRAST; 11/29/2022 11:09 pm INDICATION: Stability scan for subdural hemorrhage. COMPARISON: CT brain 11/29/2022 at 4:24 p.m.. ACCESSION NUMBER(S): [id number] ORDERING CLINICIAN: FLORENCE BORGES TECHNIQUE: Axial noncontrast CT images of the head with coronal and sagittal reconstructions. FINDINGS: EXTRACRANIAL SOFT TISSUES: Persistent frontal scalp swelling. CALVARIUM: No depressed skull fracture. No destructive osseous lesion. Hyperostosis frontalis. PARANASAL SINUSES/MASTOIDS: The visualized paranasal sinuses and mastoid air cells are aerated. HEMORRHAGE: Persistent hyperdense thickening along the anterior aspect of the interhemispheric fissure compatible with acute subdural hemorrhage measuring up to 3 mm in maximum thickness, similar compared to prior imaging. BRAIN PARENCHYMA: Ureña-white matter interfaces are preserved. No mass effect or midline shift. There are nonspecific scattered white matter hypodensities. VENTRICLES and EXTRA-AXIAL SPACES: Normal size. OTHER FINDINGS: There are calcifications within the cavernous carotids [facility] Michael Sharp MD - 11/29/2022 Interpreted By: Michael Sharp, STUDY: CT HEAD WO IV CONTRAST; 11/29/2022 11:09 pm INDICATION: Stability scan for subdural hemorrhage. COMPARISON: CT brain 11/29/2022 at 4:24 p.m.. ACCESSION NUMBER(S): [id number] ORDERING CLINICIAN: FLORENCE BORGES TECHNIQUE: Axial noncontrast CT images of the head with coronal and sagittal reconstructions. FINDINGS: EXTRACRANIAL SOFT TISSUES: Persistent frontal scalp swelling. CALVARIUM: No depressed skull fracture. No destructive osseous lesion. Hyperostosis frontalis. PARANASAL SINUSES/MASTOIDS: The visualized paranasal sinuses and mastoid air cells are aerated. HEMORRHAGE: Persistent hyperdense thickening along the anterior aspect of the interhemispheric fissure compatible with acute subdural hemorrhage measuring up to 3 mm in maximum thickness, similar compared to prior imaging. BRAIN PARENCHYMA: Ureña-white matter interfaces are preserved. No mass effect or midline shift. There are nonspecific scattered white matter hypodensities. VENTRICLES and EXTRA-AXIAL SPACES: Normal size. OTHER FINDINGS: There are calcifications within the cavernous carotids IMPRESSION: Persistent hyperdense thickening along the anterior aspect of the interhemispheric fissure compatible with acute subdural hemorrhage measuring up to 3 mm in maximum thickness, similar compared to prior imaging. No additional new areas of hemorrhage are evident. Nonspecific scattered white matter hypodensities, which may represent sequela of small vessel ischemia. Redemonstrated frontal scalp swelling with no underlying depressed calvarial fracture. MACRO: None. Signed by: Michael Sharp 11/29/2022 11:18 PM Dictation workstation: [id number] [facility] Work Phone: Radiology Study observation (narrative) [facility] Work Phone: CT Head WO contrastOrdered B y: Michael Sharp on 11-29-2022 [facility] Work Phone: Coagulation tissue factor in ducedon 11-29-2022 PT Coag (PPP) [Time] 15.4 s High 9.8-12.8 [facility] Comment on above: Performed By: #### 5 902-2 #### JANE BOLAÑOS ([id number]) [facility] ([facility]) [address] [place] [address] ECG 12-LEADon 11-29-2022 ECG 12-LEAD Ventricular Rate 62 Atrial Rate 62 P-R Interval 192 QRS Duration 90 Q-T Interval 465 QTC Calculation(Bazett) 473 P Sachse -8 R Sachse -19 T Sachse 43 QRS Count 10 Q Onset 251 T Offset 484 QTC Fredericia 470 Diagnosis Sinus rhythm Inferior infarct, old Anteroseptal infarct, old See ED provider note for full interpretation and clinical correlation Confirmed by Suly Chambers ([id number]) on 02/14/2023 3:29:09 PM Normal [facility] Glucose Test strip manual (B ld) [Mass/Vol]on 11-29-2022 Glucose [Mass/Vol] 105 mg/dL High 74 - 99 mg/dL [facility] Interpretation and review of laboratory results Abnormal [facility] Glucose [Mass/Vol] 105 mg/dL High 74-99 [facility] Comment on above: Performed By: #### 2 341-6 #### JANE BOLAÑOS ([id number]) [facility] ([facility]) [address] [place] [address] No Panel Informationon 11-29 Acute subdural hematoma along the interhemispheric fissure measuring up to 0.3 cm in thickness. No midline shift. No acute fracture or dislocation in the facial and cranial bones. No acute fracture or traumatic subluxation in the cervical spine. I discussed the findings by phone with Dr. Bryan at 4:45 p.m. on 11/30/2019 Signed by: Forrest Drew 11/29/2022 4:54 PM Dictation workstation: [id number] [facility] Interpreted By: Forrest rDew, STUDY: CT FACIAL BONES WO IV CONTRAST; CT HEAD W/O CONTRAST TRAUMA PROTOCOL; CT CERVICAL SPINE WO IV CONTRAST; 11/29/2022 4:37 pm INDICATION: Signs/Symptoms:fall , R frontal bone ecchymosis; Signs/Symptoms:Fall , right forehead hematoma, on Eliquis. COMPARISON: None. ACCESSION NUMBER(S): [id number]; [id number]; [id number] ORDERING CLINICIAN: CORBIN BORGES TECHNIQUE: Noncontrast axial CT scan of head, facial bones, and cervical spine was performed. Angled reformats in brain and bone windows were generated. The images were reviewed in bone, brain, blood and soft tissue windows. 3D volume rendered images of the facial bones were obtained and reviewed. FINDINGS: Head and facial bones: Acute subdural hematoma is seen along the interhemispheric fissure measuring up to 0.3 cm in thickness. There is no other intra/extra-axial fluid collection, mass effect, or midline shift. The ureña/white matter junction is preserved. Hypoattenuation of periventricular and subcortical white matter suggestive of chronic small vessel ischemic disease. Mild diffuse parenchymal volume loss is noted the basal cisterns are patent. The bilateral globes are intact. No acute fracture or dislocation is seen in the facial and cranial bones. Paranasal sinuses are clear. Cervical spine: There is no acute fracture or traumatic subluxation in the cervical spine. Minimal anterior slippage of C2 on C3 and C4 on C5 is most likely degenerative in etiology. Multilevel cervical spondylosis is noted. There is loss of normal cervical lordosis, which may be positional or due to muscle spasm. Prevertebral soft tissues are unremarkable. There is no apical pneumothorax. [facility] Forrest Drew MD - 11/29/2022 Interpreted By: Forrest Drew, STUDY: CT FACIAL BONES WO IV CONTRAST; CT HEAD W/O CONTRAST TRAUMA PROTOCOL; CT CERVICAL SPINE WO IV CONTRAST; 11/29/2022 4:37 pm INDICATION: Signs/Symptoms:fall , R frontal bone ecchymosis; Signs/Symptoms:Fall , right forehead hematoma, on Eliquis. COMPARISON: None. ACCESSION NUMBER(S): [id number]; [id number]; [id number] ORDERING CLINICIAN: CORBIN BORGES TECHNIQUE: Noncontrast axial CT scan of head, facial bones, and cervical spine was performed. Angled reformats in brain and bone windows were generated. The images were reviewed in bone, brain, blood and soft tissue windows. 3D volume rendered images of the facial bones were obtained and reviewed. FINDINGS: Head and facial bones: Acute subdural hematoma is seen along the interhemispheric fissure measuring up to 0.3 cm in thickness. There is no other intra/extra-axial fluid collection, mass effect, or midline shift. The ureña/white matter junction is preserved. Hypoattenuation of periventricular and subcortical white matter suggestive of chronic small vessel ischemic disease. Mild diffuse parenchymal volume loss is noted the basal cisterns are patent. The bilateral globes are intact. No acute fracture or dislocation is seen in the facial and cranial bones. Paranasal sinuses are clear. Cervical spine: There is no acute fracture or traumatic subluxation in the cervical spine. Minimal anterior slippage of C2 on C3 and C4 on C5 is most likely degenerative in etiology. Multilevel cervical spondylosis is noted. There is loss of normal cervical lordosis, which may be positional or due to muscle spasm. Prevertebral soft tissues are unremarkable. There is no apical pneumothorax. IMPRESSION: Acute subdural hematoma along the interhemispheric fissure measuring up to 0.3 cm in thickness. No midline shift. No acute fracture or dislocation in the facial and cranial bones. No acute fracture or traumatic subluxation in the cervical spine. I discussed the findings by phone with Dr. Bryan at 4:45 p.m. on 11/30/2019 Signed by: Forrest Drew 11/29/2022 4:54 PM Dictation workstation: [id number] [facility] Work Phone: Radiology Study observation (narrative) [facility] Work Phone: No Panel InformationOrdered By: Forrest Drew on 11-29-2022 [facility] Work Phone: PT Coag (PPP) [Time]on 11-29 INR Coag (PPP) [Relative time] 1.4 {INR} High 0.9 - 1.1 [facility] Interpretation and review of laboratory results Abnormal [facility] INR Coag (PPP) [Relative time] 1.4 High 0.9-1.1 [facility] Comment on above: Performed By: #### 5 902-2 #### JANE MIKY ([id number]) [facility]) [address] [place] [address] Protime-INRon 11-29-2022 PT Coag (PPP) [Time] 15.4 s High [facility] CBC AND DIFFERENTIALon 10-06 % AUTOMATED IMMATURE GRAN 0.3 % Normal 0.0 - 0.9 [facility] Comment on above: Result Comment: Jennifer ture Granulocyte Count (IG) includes promyelocytes, myelocytes and metamyelocytes but does not include bands. Percent differential counts (%) should be interpreted in the context of the absolute cell counts (cells/L). Performed By: #### I RONT #### [facility] [address] [place] [address] Basophils (Bld) [#/Vol] 0.06 10*3/uL Normal 0.00 - 0.10 [facility] Comment on above: Performed By: #### I RONT #### [facility] [address] [place] [address] Basophils/100 WBC (Bld) 0.7 % Normal 0.0 - 2.0 [facility] Comment on above: Performed By: #### I RONT #### [facility] [address] [place] [address] Eosinophils (Bld) [#/Vol] 0.32 10*3/uL Normal 0.00 - 0.40 [facility] Comment on above: Performed By: #### I RONT #### [facility] [address] [place] [address] Eosinophils/100 WBC (Bld) 3.6 % Normal 0.0 - 6.0 [facility] Comment on above: Performed By: #### I RONT #### [facility] [address] [place] [address] Erythrocyte distribution width (RBC) [Ratio] 14.7 % High 11.5 - 14.5 [facility] Comment on above: Performed By: #### I RONT #### [facility] [address] [place] [address] Hematocrit (Bld) [Volume fraction] 42.0 % Normal 36.0 - 46.0 [facility] Comment on above: Performed By: #### I VIELKAT #### [facility] [address] [place] [address] Hemoglobin (Bld) [Mass/Vol] 12.5 g/dL Normal 12.0 - 16.0 [facility] Comment on above: Performed By: #### I VIELKAT #### [facility] [address] [place] [address] Lymphocytes (Bld) [#/Vol] 2.52 10*3/uL Normal 0.80 - 3.00 [facility] Comment on above: Performed By: #### I VIELKAT #### [facility] [address] [place] [address] Lymphocytes/100 WBC (Bld) 28.0 % Normal 13.0 - 44.0 [facility] Comment on above: Performed By: #### I VIELKAT #### [facility] [address] [place] [address] MCHC (RBC) [Mass/Vol] 29.8 g/dL Low 32.0 - 36.0 [facility] Comment on above: Performed By: #### I VIELKAT #### [facility] [address] [place] [address] MCV (RBC) [Entitic vol] 92 fL Normal 80 - 100 [facility] Comment on above: Performed By: #### I VIELKAT #### [facility] [address] [place] [address] Monocytes (Bld) [#/Vol] 0.92 10*3/uL High 0.05 - 0.80 [facility] Comment on above: Performed By: #### I RONT #### [facility] [address] [place] [address] Monocytes/100 WBC (Bld) 10.2 % Normal 2.0 - 10.0 [facility] Comment on above: Performed By: #### I RONT #### [facility] [address] [place] [address] Neutrophils (Bld) [#/Vol] 5.16 10*3/uL Normal 1.60 - 5.50 [facility] Comment on above: Performed By: #### I RONT #### [facility] [address] [place] [address] Neutrophils/100 WBC (Bld) 57.2 % Normal 40.0 - 80.0 [facility] Comment on above: Performed By: #### I VIELKAT #### [facility] [address] [place] [address] NUCLEATED RBC 0.0 /100 WBC Normal 0.0-0.0 [facility] Comment on above: Performed By: #### I VIELKAT #### [facility] [address] [place] [address] Platelets (Bld) [#/Vol] 156 10*3/uL Normal 150 - 450 [facility] Comment on above: Performed By: #### I VIELKAT #### [facility] [address] [place] [address] RBC 4.56 x10E12/L Normal 4.00 - 5.20 [facility] Comment on above: Performed By: #### I VIELKAT #### [facility] [address] [place] [address] WBC (Bld) [#/Vol] 9.0 10*3/uL Normal 4.4 - 11.3 [facility] Comment on above: Performed By: #### I VIELKAT #### [facility] [address] [place] [address] FERRITINon 10-06-2022 FERRITIN 48 ug/L Normal 8 - 150 [facility] Comment on above: Performed By: #### F CHICAI #### [facility] [address] [place] [address] IRON + TIBCon 10-06-2022 % SATURATION 22 % Low 25 - 45 [facility] Comment on above: Performed By: #### I VIELKAT #### [facility] [address] [place] [address] Iron [Mass/Vol] 78 ug/dL Normal 35 - 150 [facility] Comment on above: Performed By: #### I RONT #### [facility] [address] [place] [address] TIBC 361 ug/dL Normal 240 - 445 [facility] Comment on above: Performed By: #### I RONT #### [facility] [address] [place] [address] FERRITINon 10-05-2022 Lab Specimen Source Normal [facility] Comment on above: Performed By: #### F ERRI #### [facility] [address] [place], [place] Performed By: #### I RONT #### [facility] [address] [place], [place] HIP, UNILATERAL W/PELVIS WHE N PERFORMED 2-3 VIEWSon 10-05-2022 HIP, UNILATERAL W/PELVIS WHEN PERFORMED 2-3 VIEWS Patient Name: INGRID DONALD STUDY: HIP, UNILATERAL W/PELVIS WHEN PERFORMED 2-3 VIEWS; 10/05/2022 12:06 pm INDICATION: pain. COMPARISON: None. ACCESSION NUMBER(S): [id number] ORDERING CLINICIAN: EITAN PRICE FINDINGS: No acute fracture is identified. No dislocation is seen. There are no lytic or blastic lesions. No radiopaque foreign bodies are noted. There are degenerative changes including joint space narrowing, spurring, and subchondral sclerosis. IMPRESSION: No radiographic evidence of an acute fracture. Electronically signed by: TRENT CARROLL MD Normal [facility] SPINE, LUMBOSACRAL; 2 OR 3 V IEWSon 10-05-2022 SPINE, LUMBOSACRAL; 2 OR 3 VIEWS Patient Name: INGRID DONALD STUDY: SPINE, LUMBOSACRAL; 2 OR 3 VIEWS; 10/05/2022 12:06 pm INDICATION: sciatica/hip pain. COMPARISON: None. ACCESSION NUMBER(S): [id number] ORDERING CLINICIAN: EITAN PRICE FINDINGS: No acute compression fracture is seen. No subluxation is noted. Facet joints demonstrating normal alignment. There is no evidence of spondylolysis. No lytic or blastic lesion is seen. There are advanced multilevel degenerative changes including disc space narrowing, endplate spurring, endplate sclerosis, posterior disc osteophyte complexes, and facet hypertrophy. There are vascular calcifications. IMPRESSION: No radiographic evidence of an acute fracture or subluxation. Degenerative changes. Electronically signed by: TRENT CARROLL MD Normal [facility] VITAMIN D 1,25-DIHYDROXYon 0 06-28-2022 VITAMIN D 1,25-DIHYDROXY 22.7 pg/mL Normal 19.9-79.3 [facility] Comment on above: Result Comment: INTE RPRETIVE INFORMATION: Vitamin D, 1,25-Dihydroxy This test is primarily indicated during patient evaluation for hypercalcemia and renal failure. A normal result does not rule out Vitamin D deficiency. The recommended test for diagnosing Vitamin D deficiency is Vitamin D 25-hydroxy. Performed By: [facility] [address] [place] [address] Hot Dog Vendor: Farhan Moore MD, PhD Performed By: #### V TDDI #### [address] [address] CBC AND DIFFERENTIALon 06-27 % AUTOMATED IMMATURE GRAN 0.4 % Normal 0.0 - 0.9 [facility] Comment on above: Result Comment: Jennifer ture Granulocyte Count (IG) includes promyelocytes, myelocytes and metamyelocytes but does not include bands. Percent differential counts (%) should be interpreted in the context of the absolute cell counts (cells/L). Performed By: #### C BCDF #### [facility] [address] [place] [address] Basophils (Bld) [#/Vol] 0.03 10*3/uL Normal 0.00 - 0.10 [facility] Comment on above: Performed By: #### C BCDF #### [facility] [address] [place] [address] Basophils/100 WBC (Bld) 0.6 % Normal 0.0 - 2.0 [facility] Comment on above: Performed By: #### C BCDF #### [facility] [address] [place] [address] Eosinophils (Bld) [#/Vol] 0.19 10*3/uL Normal 0.00 - 0.40 [facility] Comment on above: Performed By: #### C BCDF #### [facility] [address] [place] [address] Eosinophils/100 WBC (Bld) 3.5 % Normal 0.0 - 6.0 [facility] Comment on above: Performed By: #### C BCDF #### [facility] [address] [place] [address] Erythrocyte distribution width (RBC) [Ratio] 16.2 % High 11.5 - 14.5 [facility] Comment on above: Performed By: #### C BCDF #### [facility] [address] [place] [address] Hematocrit (Bld) [Volume fraction] 33.3 % Low 36.0 - 46.0 [facility] Comment on above: Performed By: #### C BCDF #### [facility] [address] [place] [address] Hemoglobin (Bld) [Mass/Vol] 9.7 g/dL Low 12.0 - 16.0 [facility] Comment on above: Performed By: #### C BCDF #### [facility] [address] [place] [address] Lymphocytes (Bld) [#/Vol] 1.64 10*3/uL Normal 0.80 - 3.00 [facility] Comment on above: Performed By: #### C BCDF #### [facility] [address] [place] [address] Lymphocytes/100 WBC (Bld) 30.3 % Normal 13.0 - 44.0 [facility] Comment on above: Performed By: #### C BCDF #### [facility] [address] [place] [address] MCHC (RBC) [Mass/Vol] 29.1 g/dL Low 32.0 - 36.0 [facility] Comment on above: Performed By: #### C BCDF #### [facility] [address] [place] [address] MCV (RBC) [Entitic vol] 95 fL Normal 80 - 100 [facility] Comment on above: Performed By: #### C BCDF #### [facility] [address] [place] [address] Monocytes (Bld) [#/Vol] 0.60 10*3/uL Normal 0.05 - 0.80 [facility] Comment on above: Performed By: #### C BCDF #### [facility] [address] [place] [address] Monocytes/100 WBC (Bld) 11.1 % Normal 2.0 - 10.0 [facility] Comment on above: Performed By: #### C BCDF #### [facility] [address] [place] [address] Neutrophils (Bld) [#/Vol] 2.94 10*3/uL Normal 1.60 - 5.50 [facility] Comment on above: Performed By: #### C BCDF #### [facility] [address] [place] [address] Neutrophils/100 WBC (Bld) 54.1 % Normal 40.0 - 80.0 [facility] Comment on above: Performed By: #### C BCDF #### [facility] [address] [place] [address] NUCLEATED RBC 0.0 /100 WBC Normal 0.0-0.0 [facility] Comment on above: Performed By: #### C BCDF #### [facility] [address] [place] [address] Platelets (Bld) [#/Vol] 144 10*3/uL Low 150 - 450 [facility] Comment on above: Performed By: #### C BCDF #### [facility] [address] [place] [address] RBC 3.50 x10E12/L Low 4.00 - 5.20 [facility] Comment on above: Performed By: #### C BCDF #### [facility] [address] [place] [address] WBC (Bld) [#/Vol] 5.4 10*3/uL Normal 4.4 - 11.3 [facility] Comment on above: Performed By: #### C BCDF #### [facility] [address] [place] [address] HEMOGLOBIN A1Con 06-27-2022 Glucose [Mass/Vol] 120 mg/dL Normal [facility] Comment on above: Performed By: #### H BA1E #### [facility] [address] [place] HbA1c (Bld) [Mass fraction] 5.8 % Abnormal [facility] Comment on above: Result Comment: Diag nosis of Diabetes-Adults Non-Diabetic: < or = 5.6% Increased risk for developing diabetes: 5.7-6.4% Diagnostic of diabetes: > or = 6.5% . Monitoring of Diabetes Age (y) Therapeutic Goal (%) Adults: >18 <7.0 Pediatrics: 13-18 <7.5 7-12 <8.0 0- 6 7.5-8.5 [employer]. Diabetes Care 33(S1), Feb 2009. Performed By: #### H BA1E #### [facility] [address] [place], [place] TSH WITH REFLEX TO FREE T4 I F ABNORMALon 06-27-2022 TSH Qn 3.32 m[IU]/L Normal 0.44 - 3.98 [facility] Comment on above: Result Comment: TSH testing is performed using different testing methodology at [facility] than at other [facility]. Direct result comparisons should only be made within the same method. Performed By: #### T HYDS #### [facility] [address] [place] [address] VITAMIN B12on 06-27-2022 Cobalamin (Vitamin B12) [Mass/Vol] 831 pg/mL Normal 211 - 911 [facility] Comment on above: Performed By: #### I RONT #### [facility] [address] [place] [address] COMPREHENSIVE PANELon 2022 Albumin [Mass/Vol] 3.5 g/dL Normal 3.4 - 5.0 [facility] Comment on above: Performed By: #### C MP #### [facility] [address] [place] [address] ALP [Catalytic activity/Vol] 49 U/L Normal 33 - 136 [facility] Comment on above: Performed By: #### C MP #### [facility] [address] [place] [address] ALT [Catalytic activity/Vol] 9 U/L Normal 7 - 45 [facility] Comment on above: Result Comment: Carlota ents treated with Sulfasalazine may generate falsely decreased results for ALT. Performed By: #### C MP #### [facility] [address] [place] [address] Anion gap [Moles/Vol] 13 mmol/L Normal 10 - 20 [facility] Comment on above: Performed By: #### C MP #### [facility] [address] [place] [address] AST [Catalytic activity/Vol] 13 U/L Normal 9 - 39 [facility] Comment on above: Performed By: #### C MP #### [facility] [address] [place] [address] Bilirubin [Mass/Vol] 0.7 mg/dL Normal 0.0 - 1.2 [facility] Comment on above: Performed By: #### C MP #### [facility] [address] [place] [address] Calcium [Mass/Vol] 8.9 mg/dL Normal 8.6 - 10.6 [facility] Comment on above: Performed By: #### C MP #### [facility] [address] [place] [address] Chloride [Moles/Vol] 110 mmol/L High 98 - 107 [facility] Comment on above: Performed By: #### C MP #### [facility] [address] [place] [address] Creatinine [Mass/Vol] 1.59 mg/dL High 0.50 - 1.05 [facility] Comment on above: Performed By: #### C MP #### [facility] [address] [place] [address] GFR/1.73 sq M.predicted among non-blacks MDRD (S/P/Bld) [Vol rate/Area] 31 mL/min/{1.73_m2} Abnormal >90 [facility] Comment on above: Result Comment: CALC ULATIONS OF ESTIMATED GFR ARE PERFORMED USING THE 2020 CKD-EPI STUDY REFIT EQUATION WITHOUT THE RACE VARIABLE FOR THE IDMS-TRACEABLE CREATININE METHODS. https://jasn.asnjournals.org/content//ASN.18309 19207 Performed By: #### C MP #### [facility] [address] [place] [address] Glucose [Mass/Vol] 94 mg/dL Normal 74 - 99 [facility] Comment on above: Performed By: #### C MP #### [facility] [address] [place] [address] HCO3 (Bld) [Moles/Vol] 25 mmol/L Normal 21 - 32 [facility] Comment on above: Performed By: #### C MP #### [facility] [address] [place] [address] Potassium [Moles/Vol] 4.8 mmol/L Normal 3.5 - 5.3 [facility] Comment on above: Performed By: #### C MP #### [facility] [address] [place] [address] Protein [Mass/Vol] 5.8 g/dL Low 6.4 - 8.2 [facility] Comment on above: Performed By: #### C MP #### [facility] [address] [place] [address] Sodium [Moles/Vol] 143 mmol/L Normal 136 - 145 [facility] Comment on above: Performed By: #### C MP #### [facility] [address] [place] [address] Urea nitrogen [Mass/Vol] 20 mg/dL Normal 6 - 23 [facility] Comment on above: Performed By: #### C MP #### [facility] [address] [place] [address] IRON + TIBCon 06-26-2022 % SATURATION 10 % Low 25 - 45 [facility] Comment on above: Performed By: #### I RONT #### [facility] [address] [place], [place] Iron [Mass/Vol] 38 ug/dL Normal 35 - 150 [facility] Comment on above: Performed By: #### I RONT #### [facility] [address] [place], [place] TIBC 383 ug/dL Normal 240 - 445 [facility] Comment on above: Performed By: #### I RONT #### [facility] [address] [place], [place] Lab Specimen Source Normal [facility] Comment on above: Performed By: #### I RONT #### [facility] [address] [place], [place] Performed By: #### T HYDS #### [facility] [address] [place], [place] Performed By: #### V TDDI #### [facility] [address] [place] [address] Performed By: #### C MP #### [facility] [address] [place], [place] Performed By: #### L IPID #### [facility] [address] [place], [place] Performed By: #### C BCDF #### [facility] [address] [place], [place] LIPID PANEL (CORONARY RISK 2 )on 06-26-2022 Cholesterol [Mass/Vol] 72 mg/dL Normal 0 - 199 [facility] Comment on above: Result Comment: . AGE DESIRABLE BORDERLINE HIGH HIGH 0-19 Y 0 - 169 170 - 199 >/= 200 20-24 Y 0 - 189 190 - 224 >/= 225 >24 Y 0 - 199 200 - 239 >/= 240 All ranges are based on fasting samples. Specific therapeutic targets will vary based on patient-specific cardiac risk. . Pediatric guidelines reference:Pediatrics 2011, 128(S5). Adult guidelines reference: NCEP ATPIII Guidelines, BARBY 2001, 258:2486-97 . Venipuncture immediately after or during the administration of Metamizole may lead to falsely low results. Testing should be performed immediately prior to Metamizole dosing. Performed By: #### L IPID #### [facility] [address] [place] [address] Cholesterol in HDL [Mass/Vol] 35.6 mg/dL Abnormal [facility] Comment on above: Result Comment: . AGE VERY LOW LOW NORMAL HIGH 0-19 Y < 35 < 40 40-45 ---- 20-24 Y ---- < 40 >45 ---- >24 Y ---- < 40 40-60 >60 . Performed By: #### L IPID #### [facility] [address] [place] [address] Cholesterol in LDL [Mass/Vol] 21 mg/dL Normal 0 - 99 [facility] Comment on above: Result Comment: . NEAR BORD AGE DESIRABLE OPTIMAL HIGH HIGH VERY HIGH 0-19 Y 0 - 109 --- 110-129 >/= 130 ---- 20-24 Y 0 - 119 --- 120-159 >/= 160 ---- >24 Y 0 - 99 100-129 130-159 160-189 >/=190 . Performed By: #### L IPID #### [facility] [address] [place] [address] Cholesterol in VLDL [Mass/Vol] 15 mg/dL Normal 0 - 40 [facility] Comment on above: Performed By: #### L IPID #### [facility] [address] [place] [address] Cholesterol.total/Chol esterol in HDL [Mass ratio] 2.0 {ratio} Normal [facility] Comment on above: Result Comment: REF VALUES DESIRABLE < 3.4 HIGH RISK > 5.0 Performed By: #### L IPID #### [facility] [address] [place] [address] Triglyceride [Mass/Vol] 75 mg/dL Normal 0 - 149 [facility] Comment on above: Result Comment: . AGE DESIRABLE BORDERLINE HIGH HIGH VERY HIGH 0 D-90 D 19 - 174 ---- ---- ---- 91 D- 9 Y 0 - 74 75 - 99 >/= 100 ---- 10-19 Y 0 - 89 90 - 129 >/= 130 ---- 20-24 Y 0 - 114 115 - 149 >/= 150 ---- >24 Y 0 - 149 150 - 199 200- 499 >/= 500 . Venipuncture immediately after or during the administration of Metamizole may lead to falsely low results. Testing should be performed immediately prior to Metamizole dosing. Performed By: #### L IPID #### [facility] [address] [place] [address] CHEST 2 VIEW PA AND LATon CHEST 2 VIEW PA AND LAT Patient Name: INGRID DONALD STUDY: TH CHEST 2 VIEW PA AND LAT; 06/02/2022 11:52 am INDICATION: pneumonia one month ago.. COMPARISON: 08/12/2018 ACCESSION NUMBER(S): [id number] ORDERING CLINICIAN: TORI ROBLERO FINDINGS: There is a small left pleural effusion with left basilar airspace disease. There is a small right pleural effusion as well. The cardiac silhouette is mildly enlarged. There is no jb edema. IMPRESSION: Small bilateral pleural effusions. Mild bibasilar atelectasis. Electronically signed by: AYDEN BURKS MD Normal [facility] CBC W Auto Differential pane l (Bld)Ordered By: Erica James on 01-11-2022 Basophils (Bld) [#/Vol] 0.0 10*3/uL 0.0 - 0.2 10*3/uL [facility] Basophils/100 WBC (Bld) 0.1 % 0.0 - 2.0 % [facility] Eosinophils (Bld) [#/Vol] 0.0 10*3/uL 0.0 - 0.5 10*3/uL [facility] Eosinophils/100 WBC (Bld) 0.0 % Low 1.0 - 6.0 % [facility] Erythrocyte distribution width (RBC) [Ratio] 19.0 % High 11.5 - 14.5 % [facility] Hematocrit (Bld) [Volume fraction] 33.0 % Low 35.0 - 47.0 % [facility] Hemoglobin (Bld) [Mass/Vol] 10.5 g/dL Low 11.7 - 16.0 g/dL [facility] Immature granulocytes (Bld) [#/Vol] 0.1 10*3/uL High NINF - 0.0 10*3/uL [facility] Immature granulocytes/100 WBC (Bld) 0.5 % High NINF - 0.0 % [facility] Interpretation and review of laboratory results Abnormal [facility] Lymphocytes (Bld) [#/Vol] 1.8 10*3/uL 1.0 - 4.3 10*3/uL [facility] Lymphocytes/100 WBC (Bld) 18.4 % Low 20.0 - 40.0 % [facility] MCH (RBC) [Entitic mass] 27.3 pg 26.0 - 34.0 pg [facility] MCHC (RBC) [Mass/Vol] 31.8 % Low 32.0 - 36.0 % [facility] MCV (RBC) [Entitic vol] 85.7 fL 80.0 - 98.0 fL [facility] Monocytes (Bld) [#/Vol] 0.8 10*3/uL 0.0 - 0.8 10*3/uL [facility] Monocytes/100 WBC (Bld) 8.3 % 2.0 - 10.0 % [facility] Neutrophils (Bld) [#/Vol] 7.1 10*3/uL High 1.8 - 7.0 10*3/uL [facility] Neutrophils/100 WBC (Bld) 72.7 % 40.0 - 80.0 % [facility] Platelet mean volume (Bld) [Entitic vol] 12.2 fL 7.4 - 12.4 fL [facility] Comment on above: MPV is a calculated measurement using platelet volume ratio Platelets (Bld) [#/Vol] 170 10*3/uL 140 - 440 10*3/uL [facility] RBC (Bld) [#/Vol] 3.85 10*6/uL 3.8 - 5.20 10*6/uL [facility] WBC (Bld) [#/Vol] 9.8 10*3/uL 3.6 - 10.7 10*3/uL [facility] Office Visit (Internal Medic ine)on 12-14-2021 Follow-up visit Diagnoses/Problems Assessed Anemia (285.9) (D64.9) Anemia, 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) CKD (chronic kidney disease), 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 1 pill f/u 3 mos w/ labs Chief Complaint Pt is here for 6 month follow up. 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) Class 2 severe obesity with serious comorbidity and body mass index (BMI) of 37.0 to 37.9 in adult (278.01,V85.37) (E66.01,Z68.37) Cough (786.2) (R05.9) Depression (311) (F32.A) Diabetes mellitus (250.00) (E11.9) Esophageal reflux (530.81) (K21.9) Essential hypertension (401.9) (I10) Hyperlipidemia (272.4) (E78.5) Lower extremity edema (782.3) (R60.0) Medicare annual wellness visit, subsequent (V70.0) (Z00.00) Mitral regurgitation (424.0) (I34.0) NSVT (nonsustained ventricular tachycardia) (427.1) (I47.29) OA (osteoarthritis) of foot (715.97) (M19.079) NILDA (obstructive sleep apnea) (327.23) (G47.33) Pain in both lower extremities (729.5) (M79.604,M79.605) Pyuria (791.9) (R82.81) Rhinitis (472.0) (J31.0) Past Medical History Problems History of Anemia, 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) History of Benign essential hypertension (401.1) (I10) Resolved Date: 09 Jul 2013 Added by Problem List Migration; 2012-12-16; Moved to Suppressed Dec 27 2012 9:07PM History of Bilateral pleural effusion (511.9) (J90) Resolved Date: 25 Jun 2014 History of Colon cancer (153.9) (C18.9) History of Diverticulitis of large intestine without perforation or abscess without bleeding (562.11) (K57.32) Resolved Date: 25 Dec 2019 History of MELLO (dyspnea on exertion) (786.09) (R06.09) Resolved Date: 25 Dec 2019 History of abdominal pain (V13.89) (Z87.898) Resolved Date: 28 Dec 2014 History of acute bronchitis (V12.69) (Z87.09) Resolved Date: 25 Jun 2014 History of acute renal failure (V13.09) (Z87.448) Resolved Date: 25 Dec 2019 History of back pain (V13.59) (Z87.39) Resolved Date: 30 Nov 2020 History of congestive heart failure (V12.59) (Z86.79) Resolved Date: 25 Dec 2019 History of depression (V11.8) (Z86.59) History of diarrhea (V12.79) (Z87.898) Resolved Date: 28 Dec 2014 History of epigastric pain (V12.79) (Z87.19) Resolved Date: 04 Jan 2021 History of gastroesophageal reflux (GERD) (V12.79) (Z87.19) History of Hyperlipidemia (272.4) (E78.5) Added by Problem List Migration; 2012-12-16; Moved to Suppressed Dec 27 2012 9:07PM History of Lower extremity edema (782.3) (R60.0) Resolved Date: 22 Sep 2021 History of Obstructive sleep apnea (327.23) (G47.33) History of Rash (782.1) (R21) Resolved Date: 25 Jun 2014 History of SOB (shortness of breath) on exertion (786.05) (R06.02) Resolved Date: 25 Dec 2019 Surgical History Problems History of Appendectomy History of Cath Stent Placement 06/23/[address] rondon History of Complete Colonoscopy History of Hysterectomy Family History Mother Family history of coronary artery disease (V17.3) (Z82.49) Family history of diabetes mellitus (V18.0) (Z83.3) Father Family history of coronary artery disease (V17.3) (Z82.49) Family history of diabetes mellitus (V18.0) (Z83.3) Social History Problems Never a smoker Allergies Medication morphine Recorded By: Dory Garcia; 12/14/2021 8:34:22 AM Current Meds Medication NameInstruction ALPRAZolam 0.25 MG Oral TabletTAKE 1 TABLET 4 TIMES DAILY NEEDED. Aspirin 81 MG TABS Atorvastatin Calcium 80 MG Oral TabletTake 1 tablet by mouth daily buPROPion HCl ER (XL) 300 MG Oral Tablet Extended Release 24 HourTAKE 1 TABLET DAILY DIRECTED. Carvedilol 25 MG Oral TabletTake one-half tablet by mouth twice daily Citalopram Hydrobromide 40 MG Oral Tablettake 1 tablet by mouth once daily Eliquis 2.5 MG Oral TabletTake 1 tablet twice daily Famotidine 20 MG Oral Tablet1 bid Ferrous Sulfate 325 (65 Fe) MG Oral TabletTAKE 1 TABLET BY MOUTH TWICE A DAY WITH MEALS Furosemide 40 MG Oral TabletTAKE 1.5 TABLET BY MOUTH EVERY DAY Furosemide 40 MG Oral TabletTAKE 1.5 TABLET Daily hydrOXYzine HCl - 10 MG Oral TabletTAKE 1 TABLET BY MOUTH 3 TIMES A DAY NEEDED Losartan Pot (more content not included)... Normal [employer] Tobacco Screening.on 022 Adult depression screening assessment No [employer] [facility] Work Phone: Fall risk assessment a) No falls within the last year [employer] [facility] Work Phone: Tobacco use status CPHS b) No [employer] [facility] Work Phone: Complete Blood Count + Diffe keyla 12-08-2021 Basophils/100 WBC (Bld) 0.8 % 0.0 - 2.0 [facility] Work Phone: Erythrocyte distribution width (RBC) [Ratio] 19.9 % above high threshold See Below [facility] Work Phone: Comment on above: Reference Range: 11. 5 - 14.5 Hematocrit (Bld) [Volume fraction] 32.7 % below low threshold See Below [facility] Work Phone: Comment on above: Reference Range: 36. 0 - 46.0 Hemoglobin (Bld) [Mass/Vol] 9.5 g/dL below low threshold See Below [facility] Work Phone: Comment on above: Reference Range: 12. 0 - 16.0 Lymphocytes/100 WBC (Bld) 31.3 % See Below [facility] Work Phone: Comment on above: Reference Range: 13. 0 - 44.0 MCHC (RBC) [Mass/Vol] 29.1 g/dL below low threshold See Below [facility] Work Phone: Comment on above: Reference Range: 32. 0 - 36.0 MCV (RBC) [Entitic vol] 86 fL 80 - 100 [facility] Work Phone: Monocytes/100 WBC (Bld) 9.7 % 2.0 - 10.0 [facility] Work Phone: Neutrophils/100 WBC (Bld) 55.3 % See Below [facility] Work Phone: Comment on above: Reference Range: 40. 0 - 80.0 Platelets (Bld) [#/Vol] 191 10*3/uL 150 - 450 [facility] Work Phone: RBC (Bld) [#/Vol] 3.81 {x10E12/L} below low threshold See Below [facility] Work Phone: Comment on above: Reference Range: 4.0 0 - 5.20 WBC (Bld) [#/Vol] 7.2 10*3/uL 4.4 - 11.3 [facility] Work Phone: Complete Blood Count + Differential 0.06 {x10E9/L} See Below [facility] [facility] Work Phone: Comment on above: Reference Range: 0.0 0 - 0.10 Complete Blood Count + Differential 0.19 {x10E9/L} See Below [facility] Work Phone: Comment on above: Reference Range: 0.0 0 - 0.40 Complete Blood Count + Differential 0.70 {x10E9/L} See Below [facility] Work Phone: Comment on above: Reference Range: 0.0 5 - 0.80 Complete Blood Count + Differential 2.26 {x10E9/L} See Below [facility] Work Phone: Comment on above: Reference Range: 0.8 0 - 3.00 Complete Blood Count + Differential 4.00 {x10E9/L} See Below [facility] Work Phone: Comment on above: Reference Range: 1.6 0 - 5.50 Complete Blood Count + Differential 2.6 % 0.0 - 6.0 [facility] Work Phone: Complete Blood Count + Differential 0.3 % 0.0 - 0.9 [facility] Work Phone: Comment on above: Immature Granulocyte Count (IG) includes promyelocytes, myelocytes and metamyelocytes but does not include bands. Percent differential counts (%) should be interpreted in the context of the absolute cell counts (cells/L). Complete Blood Count + Differential 0.0 {/100_WBC} 0.0-0.0 [facility] Work Phone: Ferritin, Serumon 12-08-2021 Ferritin [Mass/Vol] 188 ug/L above high threshold 8 - 150 [facility] Work Phone: Laboratory - Chemistry and C hemistry - challengeon 12-08-2021 Iron [Mass/Vol] 346 ug/dL above high threshold 35 - 150 [facility] Work Phone: Iron binding capacity [Mass/Vol] 403 ug/dL 240 - 445 [facility] Work Phone: No Panel Informationon 12-08 86 % above high threshold 25 - 45 [facility] Work Phone: Office Visit (Internal Medic ine)on 11-09-2021 Follow-up visit Diagnoses/Problems Assessed Anemia (285.9) (D64.9) Anemia, 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) Anxiety (300.00) (F41.9) ASHD (arteriosclerotic heart disease) (414.00) (I25.10) CKD (chronic kidney disease), 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) Orders Anemia Complete Blood Count + Differential; Status:Active; Requested for:09Nov2021; Perform:Lab Services - Lab To Draw (Blood Test); Due:07Feb2022;Order ed; For:Anemia; Ordered By:Eitan Price; Gastroenterology Referral Evaluation and Treatment hgb 8.1 w/ iron def Status: Hold For - Scheduling Requested for: 09Nov2021 Ordered;For: Anemia; Ordered By: Eitan Price Performed: Due: 07Feb2022 Ferritin, Serum; Status:Active; Requested for:09Nov2021; Perform:Lab Services - Lab To Draw (Blood Test); Due:07Feb2022;Order ed; For:Anemia; Ordered By:Eitan Price; Iron + TIBC, Serum; Status:Active; Requested for:09Nov2021; Perform:Lab Services - Lab To Draw (Blood Test); Due:07Feb2022;Order ed; For:Anemia; Ordered By:Eitan Price; CKD (chronic kidney disease), stage II Start: Ferrous Sulfate 325 (65 Fe) MG Oral Tablet; TAKE 1 TABLET BY MOUTH TWICE A DAY WITH MEALS Rx By: Eitan Price; Dispense: 30 Days ; #:60 Tablet; Refill: 1;For: CKD (chronic kidney disease), stage II; MARGARET = N; Sent To: [id number] Patient Discussion/Summary refer dr reynaga anemia iron supplementation f/u 4 weeks w/ cbc, iron studies Chief Complaint Pt is here for 1 month follow up. 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) Class 2 severe obesity with serious comorbidity and body mass index (BMI) of 37.0 to 37.9 in adult (278.01,V85.37) (E66.01,Z68.37) Cough (786.2) (R05.9) Depression (311) (F32.A) Diabetes mellitus (250.00) (E11.9) Esophageal reflux (530.81) (K21.9) Essential hypertension (401.9) (I10) Hyperlipidemia (272.4) (E78.5) Lower extremity edema (782.3) (R60.0) Medicare annual wellness visit, subsequent (V70.0) (Z00.00) Mitral regurgitation (424.0) (I34.0) NSVT (nonsustained ventricular tachycardia) (427.1) (I47.29) OA (osteoarthritis) of foot (715.97) (M19.079) NILDA (obstructive sleep apnea) (327.23) (G47.33) Pain in both lower extremities (729.5) (M79.604,M79.605) Pyuria (791.9) (R82.81) Rhinitis (472.0) (J31.0) Past Medical History Problems History of Anemia, 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) History of Benign essential hypertension (401.1) (I10) Resolved Date: 09 Jul 2013 Added by Problem List Migration; 2012-12-16; Moved to Suppressed Dec 27 2012 9:07PM History of Bilateral pleural effusion (511.9) (J90) Resolved Date: 25 Jun 2014 History of Colon cancer (153.9) (C18.9) History of Diverticulitis of large intestine without perforation or abscess without bleeding (562.11) (K57.32) Resolved Date: 25 Dec 2019 History of MELLO (dyspnea on exertion) (786.09) (R06.09) Resolved Date: 25 Dec 2019 History of abdominal pain (V13.89) (Z87.898) Resolved Date: 28 Dec 2014 History of acute bronchitis (V12.69) (Z87.09) Resolved Date: 25 Jun 2014 History of acute renal failure (V13.09) (Z87.448) Resolved Date: 25 Dec 2019 History of back pain (V13.59) (Z87.39) Resolved Date: 30 Nov 2020 History of congestive heart failure (V12.59) (Z86.79) Resolved Date: 25 Dec 2019 History of depression (V11.8) (Z86.59) History of diarrhea (V12.79) (Z87.898) Resolved Date: 28 Dec 2014 History of epigastric pain (V12.79) (Z87.19) Resolved Date: 04 Jan 2021 History of gastroesophageal reflux (GERD) (V12.79) (Z87.19) History of Hyperlipidemia (272.4) (E78.5) Added by Problem List Migration; 2012-12-16; Moved to Suppressed Dec 27 2012 9:07PM History of Lower extremity edema (782.3) (R60.0) Resolved Date: 22 Sep 2021 History of Obstructive sleep apnea (327.23) (G47.33) History of Rash (782.1) (R21) Resolved Date: 25 Jun 2014 History of SOB (shortness of breath) on exertion (786.05) (R06.02) Resolved Date: 25 Dec 2019 Surgical History Problems History of Appendectomy History of Cath Stent Placement 06/23/[address] [place]ondon History of Complete Colonoscopy History of Hysterectomy Family History Mother Family history of coronary artery disease (V17.3) (Z82.49) Family history of diabetes mellitus (V18.0) (Z83.3) Father Family history of coronary artery disease (V17.3) (Z82.49) Family history of diabetes mellitus (V18.0) (Z83.3) Social History Problems Never a smoker Allergies Medication No Known Drug Allergies Recorded By: Elise Smalls; 07/09/2013 8:48:37 AM Current Meds Medication NameInstruction ALBERTO (more content not included)... Normal [employer] Tobacco Screening.on 022 Adult depression screening assessment No [facility] Work Phone: Fall risk assessment a) No falls within the last year [facility] Work Phone: Tobacco use status CPHS b) No [facility] Work Phone: Complete Blood Count + Diffe brenda 11-05-2021 Basophils/100 WBC (Bld) 0.5 % 0.0 - 2.0 [facility] Work Phone: Erythrocyte distribution width (RBC) [Ratio] 17.2 % above high threshold See Below [facility] Work Phone: Comment on above: Reference Range: 11. 5 - 14.5 Hematocrit (Bld) [Volume fraction] 27.6 % below low threshold See Below [facility] Work Phone: Comment on above: Reference Range: 36. 0 - 46.0 Hemoglobin (Bld) [Mass/Vol] 8.1 g/dL below low threshold See Below [facility] Work Phone: Comment on above: Reference Range: 12. 0 - 16.0 Lymphocytes/100 WBC (Bld) 28.6 % See Below [facility] Work Phone: Comment on above: Reference Range: 13. 0 - 44.0 MCHC (RBC) [Mass/Vol] 29.3 g/dL below low threshold See Below [facility] Work Phone: Comment on above: Reference Range: 32. 0 - 36.0 MCV (RBC) [Entitic vol] 82 fL 80 - 100 [facility] Work Phone: Monocytes/100 WBC (Bld) 10.3 % 2.0 - 10.0 [facility] Work Phone: Neutrophils/100 WBC (Bld) 58.1 % See Below [facility] Work Phone: Comment on above: Reference Range: 40. 0 - 80.0 Platelets (Bld) [#/Vol] 180 10*3/uL 150 - 450 [facility] Work Phone: RBC (Bld) [#/Vol] 3.35 {x10E12/L} below low threshold See Below [facility] Work Phone: Comment on above: Reference Range: 4.0 0 - 5.20 WBC (Bld) [#/Vol] 6.2 10*3/uL 4.4 - 11.3 [facility] Work Phone: Complete Blood Count + Differential 0.03 {x10E9/L} See Below [facility] Work Phone: Comment on above: Reference Range: 0.0 0 - 0.10 Complete Blood Count + Differential 0.14 {x10E9/L} See Below [facility] Work Phone: Comment on above: Reference Range: 0.0 0 - 0.40 Complete Blood Count + Differential 0.64 {x10E9/L} See Below [facility] Work Phone: Comment on above: Reference Range: 0.0 5 - 0.80 Complete Blood Count + Differential 1.78 {x10E9/L} See Below [facility] Work Phone: Comment on above: Reference Range: 0.8 0 - 3.00 Complete Blood Count + Differential 3.62 {x10E9/L} See Below [facility] Work Phone: Comment on above: Reference Range: 1.6 0 - 5.50 Complete Blood Count + Differential 2.3 % 0.0 - 6.0 [facility] Work Phone: Complete Blood Count + Differential 0.2 % 0.0 - 0.9 [facility] Work Phone: Comment on above: Immature Granulocyte Count (IG) includes promyelocytes, myelocytes and metamyelocytes but does not include bands. Percent differential counts (%) should be interpreted in the context of the absolute cell counts (cells/L). Complete Blood Count + Differential 0.0 {/100_WBC} 0.0-0.0 [facility] Work Phone: Erythropoietin Assayon 11-05 Erythropoietin (EPO) Qn 51.3 {mIU/mL} above high threshold 2.6-18.5 [facility] Work Phone: Comment on above: [employer] el DxI 800 Immunoassay SystemValues obtained with different assay methods or kits cannot be usedinterchangeably. Results cannot be interpreted as absolute evidenceof the presence or absence of malignant disease. Ferritin, Serumon 11-05-2021 Ferritin [Mass/Vol] 8 ug/L 8 - 150 [facility] Work Phone: Folate, Serumon 11-05-2021 Folate [Mass/Vol] 10.6 ng/mL >5.0 [facility] Work Phone: Comment on above: Low <3.4Borderline 3 .4-5.0Normal >5.0. Biotin interference may cause falsely elevated results. Patients taking a Biotin dose of up to 5 mg/day should refrain from taking Biotin for 24 hours before sample collection. Providers may contact their local laboratory for further information. Laboratory - Chemistry and C hemistry - challengeon 11-05-2021 Anion gap [Moles/Vol] 12 mmol/L 10 - 20 [facility] Work Phone: Calcium [Mass/Vol] 9.2 mg/dL 8.6 - 10.6 [facility] Work Phone: Chloride [Moles/Vol] 106 mmol/L 98 - 107 [facility] Work Phone: CO2 [Moles/Vol] 26 mmol/L 21 - 32 [facility] Work Phone: Creatinine [Mass/Vol] 1.60 mg/dL above high threshold See Below [facility] Work Phone: Comment on above: Reference Range: 0.5 0 - 1.05 Glucose [Mass/Vol] 118 mg/dL above high threshold 74 - 99 [facility] Work Phone: Iron [Mass/Vol] 35 ug/dL 35 - 150 [facility] Work Phone: Iron binding capacity [Mass/Vol] 466 ug/dL above high threshold 240 - 445 [facility] Work Phone: Potassium [Moles/Vol] 4.4 mmol/L 3.5 - 5.3 [facility] Work Phone: Sodium [Moles/Vol] 140 mmol/L 136 - 145 [facility] Work Phone: Urea nitrogen [Mass/Vol] 26 mg/dL above high threshold 6 - 23 [facility] Work Phone: No Panel Informationon 11-05 8 % below low threshold 25 - 45 [facility] Work Phone: 31 {mL/min/1.73m2} Abnormal >90 [facility] Work Phone: Comment on above: CALCULATIONS OF STEVO MATED GFR ARE PERFORMED USING THE 2020 CKD-EPI STUDY REFIT EQUATION WITHOUT THE RACE VARIABLE FOR THE IDMS-TRACEABLE CREATININE METHODS.https://jasn.asnjournals.org/content//A [email or web address] PROTEIN ELECTROPHORESIS,SERU 11-05-2021 Albumin [Mass/Vol] 3.3 g/dL below low threshold 3.4 - 5.0 [facility] Work Phone: Protein [Mass/Vol] 6.2 g/dL below low threshold 6.4 - 8.2 [facility] Work Phone: PROTEIN ELECTROPHORESIS,SERUM ABNORMAL [facility] Work Phone: Comment on above: Hypoalbuminemia. PROTEIN ELECTROPHORESIS,SERUM 0.9 g/dL 0.4 - 1.1 [facility] Work Phone: PROTEIN ELECTROPHORESIS,SERUM 0.3 g/dL 0.2 - 0.6 [facility] Work Phone: Path Review SPEon 11-05-2021 Path Review OTTONIEL CHRISTOPHER [facility] Work Phone: Comment on above: By her/his signature above, the Pathologist listed as making the final interpretation certifies that she/he has personally reviewed this case. 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) Anemia (285.9) (D64.9) ASHD (arteriosclerotic heart disease) (414.00) (I25.10) Orders Anemia, pernicious Complete Blood Count + Differential; Status:Active; Requested for:11Oct2021; Perform:Lab Services - Lab To Draw (Blood Test); Due:09Apr2022;Order ed; For:Anemia, pernicious; Ordered By:Eitan Price; Erythropoietin Assay; Status:Active; Requested for:11Oct2021; Perform:Lab Services - Lab To Draw (Blood Test); Due:09Apr2022;Order ed; For:Anemia, pernicious; Ordered By:Eitan Price; Ferritin, Serum; Status:Active; Requested for:11Oct2021; Perform:Lab Services - Lab To Draw (Blood Test); Due:09Apr2022;Order ed; For:Anemia, pernicious; Ordered By:Eitan Price; Folate, Serum; Status:Active; Requested for:11Oct2021; Perform:Lab Services - Lab To Draw (Blood Test); Due:09Apr2022;Order ed; For:Anemia, pernicious; Ordered By:Eitan Price; Iron + TIBC, Serum; Status:Active; Requested for:11Oct2021; Perform:Lab Services - Lab To Draw (Blood Test); Due:09Apr2022;Order ed; For:Anemia, pernicious; Ordered By:Eitan Price; Occult Blood, Stool; Status:Active; Requested for:11Oct2021; Perform:Lab Services - Lab To Draw (Non-Blood Test); Due:09Apr2022;Order ed; For:Anemia, pernicious; Ordered By:Eitan Price; PROTEIN ELECTROPHORESIS,SER UM; Status:Active - Exact Date; Requested for:11Oct2021; Perform:Lab Services - Lab To Draw (Blood Test);Ordered; For:Anemia, pernicious; Ordered By:Eitan Price; Vitamin B12, Serum; Status:Hold For - Exact Date; Requested for:10/11/21; Perform:Lab Services - Lab To Draw (Blood Test);Ordered; For:Anemia, pernicious; Ordered By:Eitan Price; CKD (chronic kidney disease), stage II Basic Metabolic Panel; Status:Active; Requested for:11Oct2021; Perform:Lab Services - Lab To Draw (Blood Test); Due:09Apr2022;Order ed; For:CKD (chronic kidney disease), stage II; Ordered By:Eitan Price; PMH: History of congestive heart failure Changed: From Furosemide 40 MG Oral Tablet TAKE 2 TABLET BY MOUTH EVERY DAY To Furosemide 40 MG Oral Tablet TAKE 1.5 TABLET BY MOUTH EVERY DAY Rx By: Eitan Price; Dispense: 90 Days ; #:135 Tablet; Refill: 3;For: PMH: History of congestive heart failure; MARGARET = N; Record Pyuria Start: Sulfamethoxazole-Tr imethoprim 400-80 MG Oral Tablet; TAKE 1 TABLET TWICE DAILY Rx By: Eitan Price; Dispense: 3 Days ; #:6 Tablet; Refill: 0;For: Pyuria; MARGARET = N; Verified Transmission to [facility] #[id number]; Last Updated By: Linda Wolf; 10/06/2021 4:34:39 PM Patient Discussion/Summary dec lasix to 40 mg 1.5 daily labs and stool in 5 days f/u 4 weeks atb for urine (never picked up) moderately complex decision making and moderate risk of morbidity due to course of illnesses and/or treatment Chief Complaint Patient is here today for a 2 week follow up. 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) Anxiety (300.00) (F41.9) ASHD (arteriosclerotic heart disease) (414.00) (I25.10) Benign colonic polyp (211.3) (K63.5) CKD (chronic kidney disease), 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) Class 2 severe obesity with serious comorbidity and body mass index (BMI) of 37.0 to 37.9 in adult (278.01,V85.37) (E66.01,Z68.37) Cough (786.2) (R05.9) Depression (311) (F32.A) Diabetes mellitus (250.00) (E11.9) Esophageal reflux (530.81) (K21.9) Essential hypertension (401.9) (I10) Hyperlipidemia (272.4) (E78.5) Lower extremity edema (782.3) (R60.0) Medicare annual wellness visit, subsequent (V70.0) (Z00.00) Mitral regurgitation (424.0) (I34.0) NSVT (nonsustained ventricular tachycardia) (427.1) (I47.2) OA (osteoarthritis) of foot (715.97) (M19.079) NILDA (obstructive sleep apnea) (327.23) (G47.33) Pain in both lower extremities (729.5) (M79.604,M79.605) Pyuria (791.9) (R82.81) Rhinitis (472.0) (J31.0) Past Medical History Problems History of Anemia, 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) History of Benign essential hypertension (401.1) (I10) Resolved Date: 09 Jul 2013 Added by Problem List Migration; 2012-12-16; Moved to [facility] Dec 27 2012 9:07PM History of Bilateral pleural effusion (511.9) (J90) Resolved Date: 25 Jun 2014 History of Colon cancer (153.9) (C18.9) History of Diverticulitis of large intestine without perforation or abscess without bleeding (562.11) (K57.32) Resolved Date: 25 Dec 2019 History of MELLO (dyspnea on exertion) (786.09) (R06.09) Resolved Date: 25 Dec 2019 History of abdominal pain (V13.89) (Z87.898) Resolved Date: 28 Dec 2014 History of acute bronchitis (V12.69) (Z87.09) Resolved Date: 25 Jun 2014 History of acute renal failure (V13.09) (Z87.448) Resolved Date: 25 Dec 2019 History of back pain (V13.59) (Z87.39) (more content not included)... Normal Touchworks Complete Blood Count + Diffe keyla 09-30-2021 Basophils/100 WBC (Bld) 0.7 % 0.0 - 2.0 [facility] Work Phone: Erythrocyte distribution width (RBC) [Ratio] 17.5 % above high threshold See Below [facility] Work Phone: Comment on above: Reference Range: 11. 5 - 14.5 Hematocrit (Bld) [Volume fraction] 31.6 % below low threshold See Below [facility] Work Phone: Comment on above: Reference Range: 36. 0 - 46.0 Hemoglobin (Bld) [Mass/Vol] 9.4 g/dL below low threshold See Below [facility] Work Phone: Comment on above: Reference Range: 12. 0 - 16.0 Lymphocytes/100 WBC (Bld) 32.7 % See Below [facility] Work Phone: Comment on above: Reference Range: 13. 0 - 44.0 MCHC (RBC) [Mass/Vol] 29.7 g/dL below low threshold See Below [facility] Work Phone: Comment on above: Reference Range: 32. 0 - 36.0 MCV (RBC) [Entitic vol] 82 fL 80 - 100 [facility] Work Phone: Monocytes/100 WBC (Bld) 10.0 % 2.0 - 10.0 [facility] Work Phone: Neutrophils/100 WBC (Bld) 53.5 % See Below [facility] Work Phone: Comment on above: Reference Range: 40. 0 - 80.0 Platelets (Bld) [#/Vol] 233 10*3/uL 150 - 450 [facility] Work Phone: RBC (Bld) [#/Vol] 3.87 {x10E12/L} below low threshold See Below [facility] Work Phone: Comment on above: Reference Range: 4.0 0 - 5.20 WBC (Bld) [#/Vol] 7.4 10*3/uL 4.4 - 11.3 [facility] Work Phone: Complete Blood Count + Differential 0.05 {x10E9/L} See Below [facility] Work Phone: Comment on above: Reference Range: 0.0 0 - 0.10 Complete Blood Count + Differential 0.21 {x10E9/L} See Below [facility] Work Phone: Comment on above: Reference Range: 0.0 0 - 0.40 Complete Blood Count + Differential 0.74 {x10E9/L} See Below [facility] Work Phone: Comment on above: Reference Range: 0.0 5 - 0.80 Complete Blood Count + Differential 2.42 {x10E9/L} See Below [facility] Work Phone: Comment on above: Reference Range: 0.8 0 - 3.00 Complete Blood Count + Differential 3.95 {x10E9/L} See Below [facility] Work Phone: Comment on above: Reference Range: 1.6 0 - 5.50 Complete Blood Count + Differential 2.8 % 0.0 - 6.0 [facility] Work Phone: Complete Blood Count + Differential 0.3 % 0.0 - 0.9 [facility] Work Phone: Comment on above: Immature Granulocyte Count (IG) includes promyelocytes, myelocytes and metamyelocytes but does not include bands. Percent differential counts (%) should be interpreted in the context of the absolute cell counts (cells/L). Complete Blood Count + Differential 0.0 {/100_WBC} 0.0-0.0 [facility] Work Phone: Laboratory - Chemistry and C hemistry - challengeon 09-30-2021 Albumin BCP dye [Mass/Vol] 3.8 g/dL 3.4 - 5.0 [facility] Work Phone: ALP [Catalytic activity/Vol] 60 U/L 33 - 136 [facility] Work Phone: ALT With P-5'-P [Catalytic activity/Vol] 7 U/L 7 - 45 [facility] Work Phone: Comment on above: Patients treated wit h Sulfasalazine may generate falsely decreased results for ALT. Anion gap [Moles/Vol] 16 mmol/L 10 - 20 [facility] Work Phone: AST With P-5'-P [Catalytic activity/Vol] 9 U/L 9 - 39 [facility] Work Phone: Bilirubin [Mass/Vol] 0.5 mg/dL 0.0 - 1.2 [facility] Work Phone: Calcium [Mass/Vol] 9.2 mg/dL 8.6 - 10.6 [facility] Work Phone: Chloride [Moles/Vol] 104 mmol/L 98 - 107 [facility] Work Phone: CO2 [Moles/Vol] 24 mmol/L 21 - 32 [facility] Work Phone: Creatinine [Mass/Vol] 2.02 mg/dL above high threshold See Below [facility] Work Phone: Comment on above: Reference Range: 0.5 0 - 1.05 Glucose [Mass/Vol] 136 mg/dL above high threshold 74 - 99 [facility] Work Phone: Natriuretic peptide B (Bld) [Mass/Vol] 226 pg/mL above high threshold 0 - 99 [facility] Work Phone: Comment on above: . <100 pg/mL - Heart failure [id number] pg/mL - Intermediate probability of acute heart. failure exacerbation. Correlate with clinical. context and patient history. >=300 pg/mL - Heart Failure likely. Correlate with clinical. context and patient history. Biotin interference may cause falsely decreased results. Patients taking a Biotin dose of up to 5 mg/day should refrain from taking Biotin for 24 hours before sample collection. Providers may contact their local laboratory for further information. Potassium [Moles/Vol] 4.3 mmol/L 3.5 - 5.3 [facility] Work Phone: Protein [Mass/Vol] 6.4 g/dL 6.4 - 8.2 [facility] Work Phone: Sodium [Moles/Vol] 140 mmol/L 136 - 145 [facility] [facility] Work Phone: TSH Qn 1.90 m[IU]/L See Below [facility] Work Phone: Comment on above: Reference Range: 0.4 4 - 3.98 TSH testing is performed using different testing methodology at [facility] than at other [facility]. Direct result comparisons should only be made within the same method. Urea nitrogen [Mass/Vol] 38 mg/dL above high threshold 6 - 23 [facility] Work Phone: No Panel Informationon 09-30 24 {mL/min/1.73m2} Abnormal >90 [facility] Work Phone: Comment on above: CALCULATIONS OF STEVO MATED GFR ARE PERFORMED USING THE 2020 CKD-EPI STUDY REFIT EQUATION WITHOUT THE RACE VARIABLE FOR THE IDMS-TRACEABLE CREATININE METHODS.https://jasn.asnjournals.org/content/early/A SN.1269617227 Urinalysison 09-30-2021 Color (U) YELLOW See Below [facility] Work Phone: Comment on above: Reference Range: STR AW,YELLOW Glucose Ql (U) Negative NEGATIVE -[facility] Work Phone: Ketones Ql (U) Negative NEGATIVE -[facility] Work Phone: Leukocyte esterase Test strip Ql (U) LARGE (3+) Abnormal NEGATIVE [facility] Work Phone: pH (U) 5.0 [pH] 5.0 - 8.0 [facility] Work Phone: Protein (U) [Mass/Vol] Negative NEGATIVE [facility] Work Phone: RBC (U) [#/Vol] Negative NEGATIVE -[facility] Work Phone: Specific gravity (U) [Rel density] 1.018 1 See Below [facility] Work Phone: Comment on above: Reference Range: 1.0 05 - 1.035 Urinalysis Negative NEGATIVE [facility] Work Phone: Urinalysis <2.0 0.0 - 1.9 [facility] Work Phone: Urinalysis HAZY CLEAR [facility] Work Phone: Urinalysis, Microscopicon Hyaline casts LM Ql (Urine sed) OCC Abnormal [facility] Work Phone: Urinalysis, Microscopic 1+ -[facility] Work Phone: Urinalysis, Microscopic 4+ Abnormal [facility] Work Phone: Urinalysis, Microscopic <1 -[facility] Work Phone: Urinalysis, Microscopic 2 {/HPF} [facility] Work Phone: Urinalysis, Microscopic 7 {/HPF} Abnormal 0-5 [facility] Work Phone: Urinalysis, Microscopic FEW -[facility] Work Phone: Urinalysis, Microscopic 154 {/HPF} Abnormal 0-5 [facility] Work Phone: Office Visit (Internal Medic ine)on 09-22-2021 Follow-up visit Diagnoses/Problems Assessed Lower extremity edema (782.3) (R60.0) Orders Lower extremity edema Brain Natriuretic Peptide BNP; Status:Active; Requested for:[id number]; Perform:Lab Services - Lab To Draw (Blood Test); Due:28Dec2021;Order ed; For:Lower extremity edema; Ordered By:Eitan Price; Complete Blood Count + Differential; Status:Hold For - Exact Date; Requested for:09/29/21; Perform:Lab Services - Lab To Draw (Blood Test); Due:21Dec2021;Order ed; For:Lower extremity edema; Ordered By:Eitan Price; Comprehensive Metabolic Panel; Status:Hold For - Exact Date; Requested for:09/29/21; Perform:Lab Services - Lab To Draw (Blood Test); Due:21Dec2021;Order ed; For:Lower extremity edema; Ordered By:Eitan Price; TSH WITH REFLEX TO FREE T4 IF ABNORMAL; Status:Hold For - Exact Date; Requested for:09/29/21; Perform:Lab Services - Lab To Draw (Blood Test); Due:[id number];Order ed; For:Lower extremity edema; Ordered By:Eitan Pirce; Urinalysis; Status:Active; Requested for:29Sep2021; Perform:Lab Services - Lab To Draw (Non-Blood Test); Due:28Dec2021;Order ed; For:Lower extremity edema; Ordered By:Eitan Price; PMH: History of congestive heart failure Changed: From Furosemide 40 MG Oral Tablet TAKE 1 TABLET BY MOUTH EVERY DAY To Furosemide 40 MG Oral Tablet TAKE 2 TABLET BY MOUTH EVERY DAY Rx By: Eitan Price; Dispense: 90 Days ; #:90 Tablet; Refill: 3;For: PMH: History of congestive heart failure; MARGARET = N; Record Patient Discussion/Summary inc furosemide to 2 x 40 mg daily labs in a week f/u 2 weeks moderately complex decision making and moderate risk of morbidity due to course of illnesses and/or treatment Chief Complaint Patient is here today for a follow up on her lab work. 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) Class 2 severe obesity with serious comorbidity and body mass index (BMI) of 37.0 to 37.9 in adult (278.01,V85.37) (E66.01,Z68.37) Cough (786.2) (R05.9) Depression (311) (F32.A) Diabetes mellitus (250.00) (E11.9) Esophageal reflux (530.81) (K21.9) Essential hypertension (401.9) (I10) Hyperlipidemia (272.4) (E78.5) Medicare annual wellness visit, subsequent (V70.0) (Z00.00) Mitral regurgitation (424.0) (I34.0) NSVT (nonsustained ventricular tachycardia) (427.1) (I47.2) OA (osteoarthritis) of foot (715.97) (M19.079) NILDA (obstructive sleep apnea) (327.23) (G47.33) Pain in both lower extremities (729.5) (M79.604,M79.605) Pyuria (791.9) (R82.81) Rhinitis (472.0) (J31.0) Past Medical History Problems History of Anemia, 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) History of Benign essential hypertension (401.1) (I10) Resolved Date: 09 Jul 2013 Added by Problem List Migration; 2012-12-16; Moved to [facility] Dec 27 2012 9:07PM History of Bilateral pleural effusion (511.9) (J90) Resolved Date: 25 Jun 2014 History of Colon cancer (153.9) (C18.9) History of Diverticulitis of large intestine without perforation or abscess without bleeding (562.11) (K57.32) Resolved Date: 25 Dec 2019 History of MELLO (dyspnea on exertion) (786.09) (R06.09) Resolved Date: 25 Dec 2019 History of abdominal pain (V13.89) (Z87.898) Resolved Date: 28 Dec 2014 History of acute bronchitis (V12.69) (Z87.09) Resolved Date: 25 Jun 2014 History of acute renal failure (V13.09) (Z87.448) Resolved Date: 25 Dec 2019 History of back pain (V13.59) (Z87.39) Resolved Date: 30 Nov 2020 History of congestive heart failure (V12.59) (Z86.79) Resolved Date: 25 Dec 2019 History of depression (V11.8) (Z86.59) History of diarrhea (V12.79) (Z87.898) Resolved Date: 28 Dec 2014 History of epigastric pain (V12.79) (Z87.19) Resolved Date: 04 Jan 2021 History of gastroesophageal reflux (GERD) (V12.79) (Z87.19) History of Hyperlipidemia (272.4) (E78.5) Added by Problem List Migration; 2012-12-16; Moved to [facility] Dec 27 2012 9:07PM History of Lower extremity edema (782.3) (R60.0) History of Obstructive sleep apnea (327.23) (G47.33) History of Rash (782.1) (R21) Resolved Date: 25 Jun 2014 History of SOB (shortness of breath) on exertion (786.05) (R06.02) Resolved Date: 25 Dec 2019 Surgical History Problems History of Appendectomy History of Cath Stent Placement 06/23/[address] [place]ondon History of Complete Colonoscopy History of Hysterectomy Family History Mother Family history of coronary artery disease (V17.3) (Z82.49) Family history of diabetes mellitus (V18.0) (Z83.3) Father Family history of coronary artery disease (V17.3) (Z82.49) Family history of diab (more content not included)... Normal [facility] - Chemistry and C hemistry - challengeon 09-14-2021 Anion gap [Moles/Vol] 15 mmol/L 10 - 20 [facility] Work Phone: Calcium [Mass/Vol] 9.3 mg/dL 8.6 - 10.6 [facility] Work Phone: Chloride [Moles/Vol] 107 mmol/L 98 - 107 [facility] Work Phone: CO2 [Moles/Vol] 25 mmol/L 21 - 32 [facility] Work Phone: Creatinine [Mass/Vol] 1.57 mg/dL above high threshold See Below [facility] Work Phone: Comment on above: Reference Range: 0.5 0 - 1.05 Glucose [Mass/Vol] 119 mg/dL above high threshold 74 - 99 [facility] Work Phone: Potassium [Moles/Vol] 5.1 mmol/L 3.5 - 5.3 [facility] Work Phone: Sodium [Moles/Vol] 142 mmol/L 136 - 145 [facility] Work Phone: Urea nitrogen [Mass/Vol] 31 mg/dL above high threshold 6 - 23 [facility] Work Phone: No Panel Informationon 09-14 32 {mL/min/1.73m2} Abnormal >90 [facility] Work Phone: Comment on above: CALCULATIONS OF STEVO MATED GFR ARE PERFORMED USING THE 2020 CKD-EPI STUDY REFIT EQUATION WITHOUT THE RACE VARIABLE FOR THE IDMS-TRACEABLE CREATININE METHODS.https://jasn.asnjournals.org/content//A SN.4797742797 Office Visit (Internal Medic ine)on 09-07-2021 Follow-up visit Diagnoses/Problems Assessed Lower extremity edema (782.3) (R60.0) OA (osteoarthritis) of foot (715.97) (M19.079) CKD (chronic kidney disease), 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) Essential hypertension (401.9) (I10) Depression (311) (F32.A) Diabetes mellitus (250.00) (E11.9) ASHD (arteriosclerotic heart disease) (414.00) (I25.10) Class 2 severe obesity with serious comorbidity and body mass index (BMI) of 37.0 to 37.9 in adult (278.01,V85.37) (E66.01,Z68.37) Patient Discussion/Summary d/c amlodipine inc losartan to100 mg continue daily furosemide avoid salt bmp 1 week f/u 2 weeks tylenol uad moderately complex decision making and moderate risk of morbidity due to course of illnesses and/or treatment Chief Complaint Patient is here today for a follow up on chronic medical problem. History of Present Illnessleg swelling pain in r foot w/ walking/standing long periods us neg x r bond's cyst xrays remarkable for foot oa edema very troubling to pt Review of Systems as per [place] Active Problems Problems Abnormal serum creatinine level (790.99) (R79.89) Anemia, 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) Anxiety (300.00) (F41.9) ASHD (arteriosclerotic heart disease) (414.00) (I25.10) Benign colonic polyp (211.3) (K63.5) Cough (786.2) (R05.9) Depression (311) (F32.A) Diabetes mellitus (250.00) (E11.9) Esophageal reflux (530.81) (K21.9) Essential hypertension (401.9) (I10) Hyperlipidemia (272.4) (E78.5) Medicare annual wellness visit, subsequent (V70.0) (Z00.00) Mitral regurgitation (424.0) (I34.0) NSVT (nonsustained ventricular tachycardia) (427.1) (I47.2) NILDA (obstructive sleep apnea) (327.23) (G47.33) Pain in both lower extremities (729.5) (M79.604,M79.605) Pyuria (791.9) (R82.81) Rhinitis (472.0) (J31.0) Past Medical History Problems History of Anemia, 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) History of Benign essential hypertension (401.1) (I10) Resolved Date: 09 Jul 2013 Added by Problem List Migration; 2012-12-16; Moved to [facility] Dec 27 2012 9:07PM History of Bilateral pleural effusion (511.9) (J90) Resolved Date: 25 Jun 2014 History of Colon cancer (153.9) (C18.9) History of Diverticulitis of large intestine without perforation or abscess without bleeding (562.11) (K57.32) Resolved Date: 25 Dec 2019 History of MELLO (dyspnea on exertion) (786.09) (R06.09) Resolved Date: 25 Dec 2019 History of abdominal pain (V13.89) (Z87.898) Resolved Date: 28 Dec 2014 History of acute bronchitis (V12.69) (Z87.09) Resolved Date: 25 Jun 2014 History of acute renal failure (V13.09) (Z87.448) Resolved Date: 25 Dec 2019 History of back pain (V13.59) (Z87.39) Resolved Date: 30 Nov 2020 History of congestive heart failure (V12.59) (Z86.79) Resolved Date: 25 Dec 2019 History of depression (V11.8) (Z86.59) History of diarrhea (V12.79) (Z87.898) Resolved Date: 28 Dec 2014 History of epigastric pain (V12.79) (Z87.19) Resolved Date: 04 Jan 2021 History of gastroesophageal reflux (GERD) (V12.79) (Z87.19) History of Hyperlipidemia (272.4) (E78.5) Added by Problem List Migration; 2012-12-16; Moved to [facility] Dec 27 2012 9:07PM History of Obstructive sleep apnea (327.23) (G47.33) History of Rash (782.1) (R21) Resolved Date: 25 Jun 2014 History of SOB (shortness of breath) on exertion (786.05) (R06.02) Resolved Date: 25 Dec 2019 Surgical History Problems History of Appendectomy History of Cath Stent Placement 06/23/16 drake rondon History of Complete Colonoscopy History of Hysterectomy Family History Mother Family history of coronary artery disease (V17.3) (Z82.49) Family history of diabetes mellitus (V18.0) (Z83.3) Father Family history of coronary artery disease (V17.3) (Z82.49) Family history of diabetes mellitus (V18.0) (Z83.3) Social History Problems Never a smoker Allergies Medication No Known Drug Allergies Recorded By: Elise Smalls; 07/09/2013 8:48:37 AM Current Meds Medication NameInstruction ALPRAZolam 0.25 MG Oral TabletTAKE 1 TABLET 4 TIMES DAILY NEEDED. amLODIPine Besylate 5 MG Oral TabletTake 1 tablet by mouth daily Aspirin 81 MG TABS Atorvastatin Calcium 80 MG Oral TabletTAKE 1 TABLET BY MOUTH EVERY DAY buPROPion HCl ER (XL) 300 MG Oral Tablet Extended Release 24 HourTAKE 1 TABLET DAILY DIRECTED. Carvedilol 25 MG Oral TabletTAKE 0.5 TABLET Twice daily Citalopram Hydrobromide 40 MG Oral Tablettake 1 tablet by mouth once daily Eliquis 2.5 MG Oral TabletTake 1 tablet twice daily Famotidine 20 MG Oral Tablet1 bid Furosemide 40 MG Oral TabletTAKE 1 TABLET BY MOUTH EVERY DAY hydrOXYzine HCl - 10 MG Oral TabletTAKE 1 TABLET BY MOUTH 3 TIMES A DAY NEEDED Losartan Potassium 25 MG Oral Tablettake 1 tablet by mouth once daily metFORMIN HCl - 500 MG Oral TabletTake 1 tablet by mouth twice a day Montelukast Sodium 10 MG Oral TabletTAKE 1 TABLET BY MOUTH AT BEDTIME Omeprazole 20 MG Oral Capsule Delayed Rel (more content not included)... Normal [facility] Medicare Annual Wellness Vis iton 08-02-2021 Medicare Annual Wellness Visit *Chief Complaint Patient is here today for a medicare wellness visit. Follow up on chronic medical problems. Adult Risk Screening Initial Fall Risk Screening: INGRID has not fallen in the last 6 months. INGRID has a fear of falling. She does not need assistance with sitting, standing or walking. Does not need assistance walking in her home. She does not need assistance in an unfamiliar setting. The patient is not using an assistive device. History of Present Illness The patient is being seen for the subsequent annual wellness visit. Past Medical, Surgical and Family History: reviewed and updated in chart. Medications and Supplements: Review of all medications by a prescribing practitioner or clinical pharmacist (such as prescriptions, OTCs, herbal therapies and supplements) documented in the medical record. No, the patient is not using opioids. Patient Self Assessment of Health Status: good. Tobacco use: Non-User Alcohol use: User Illicit drug use: Non-User Current diet: well balanced diet. Exercise Frequency: the patient does not exercise. Depression/Suicide Screening: Patient has a current diagnosis of depression . During the past 2 weeks, the patient felt down, depressed or hopeless. During the past 2 weeks, the patient has not felt little interest or pleasure in doing things. Hearing Impairment: Patient has slight hearing impairment. Cognitive Impairment: No cognitive impairment observed. Bathing: performs independently. Dressing: performs independently. Walking: performs independently. Managing Finances: performs independently. Shopping: performs independently. Managing Medications: performs independently. Housework / Basic Home Maintenance: performs independently. Falls Risk Screening:. INGRID has not fallen in the last 6 months. Home safety risk factors: none. problems w/ stress not doing that well water damage in one house air conditioner out in [place] crying a lot leg and foot pain r > left no trauma a little swelling f/u dm, hyperlipidemia, dep, htn Review of Systems see [place] *Active Problems Abnormal serum creatinine level (790.99) (R79.89) Anemia, 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) Anxiety (300.00) (F41.9) ASHD (arteriosclerotic heart disease) (414.00) (I25.10) Benign colonic polyp (211.3) (K63.5) Cough (786.2) (R05.9) Depression (311) (F32.A) Diabetes mellitus (250.00) (E11.9) Esophageal reflux (530.81) (K21.9) Essential hypertension (401.9) (I10) Hyperlipidemia (272.4) (E78.5) Medicare annual wellness visit, subsequent (V70.0) (Z00.00) Mitral regurgitation (424.0) (I34.0) NSVT (nonsustained ventricular tachycardia) (427.1) (I47.2) NILDA (obstructive sleep apnea) (327.23) (G47.33) Pyuria (791.9) (R82.81) Rhinitis (472.0) (J31.0) Past Medical History History of Anemia, 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) History of Benign essential hypertension (401.1) (I10) Resolved Date: 09 Jul 2013 Added by Problem List Migration; 2012-12-16; Moved to [facility] Dec 27 2012 9:07PM History of Bilateral pleural effusion (511.9) (J90) Resolved Date: 25 Jun 2014 History of Colon cancer (153.9) (C18.9) History of Diverticulitis of large intestine without perforation or abscess without bleeding (562.11) (K57.32) Resolved Date: 25 Dec 2019 History of MELLO (dyspnea on exertion) (786.09) (R06.00) Resolved Date: 25 Dec 2019 History of abdominal pain (V13.89) (Z87.898) Resolved Date: 28 Dec 2014 History of acute bronchitis (V12.69) (Z87.09) Resolved Date: 25 Jun 2014 History of acute renal failure (V13.09) (Z87.448) Resolved Date: 25 Dec 2019 History of back pain (V13.59) (Z87.39) Resolved Date: 30 Nov 2020 History of congestive heart failure (V12.59) (Z86.79) Resolved Date: 25 Dec 2019 History of depression (V11.8) (Z86.59) History of diarrhea (V12.79) (Z87.898) Resolved Date: 28 Dec 2014 History of epigastric pain (V12.79) (Z87.19) Resolved Date: 04 Jan 2021 History of gastroesophageal reflux (GERD) (V12.79) (Z87.19) History of Hyperlipidemia (272.4) (E78.5) Added by Problem List Migration; 2012-12-16; Moved to [facility] Dec 27 2012 9:07PM History of Obstructive sleep apnea (327.23) (G47.33) History of Rash (782.1) (R21) Resolved Date: 25 Jun 2014 History of SOB (shortness of breath) on exertion (786.05) (R06.02) Resolved Date: 25 Dec 2019 Surgical History History of Appendectomy History of Cath Stent Placement 06/23/16 drake rondon History of Complete Colonoscopy History of Hysterectomy Family History Family history of coronary artery disease (V17.3) (Z82.49) Family history of diabetes mellitus (V18.0) (Z83.3) Family history of coronary artery disease (V17.3) (Z82.49) Family history of diabetes mellitus (V18.0) (Z83.3) Social History Never a smoker *Allergies No Known Drug Allergies Recorded By: Elise Smalls; 07/09/2013 8:48:37 AM *Current Meds Medication NameInstruction ALPRAZo (more content not included)... Normal [facility] PHQ-2 VITALSon 08-02-2021 Adult depression screening assessment No [facility] Work Phone: Fall risk assessment a) No falls within the last year [facility] Work Phone: Tobacco use status CPHS b) No [facility] Work Phone: Radiologyon 08-02-2021 US.doppler Upper extremity vein - bilateral Normal [facility] Work Phone: XR Foot 3 Views Please click on the link to view the study images Normal [facility] Work Phone: XR Foot 3 Views Normal [facility] Work Phone: XR Tibia and Fibula - left 2 Views Please click on the link to view the study images Normal [facility] Work Phone: XR Tibia and Fibula - left 2 Views Normal [facility] Work Phone: Hemoglobin A1Con 08-01-2021 Glucose [Mass/Vol] 151 mg/dL [facility] Work Phone: HbA1c (Bld) [Mass fraction] 6.9 % Abnormal [facility] Work Phone: Comment on above: Diagnosis of Diabete s-Adults Non-Diabetic: < or = 5.6% Increased risk for developing diabetes: 5.7-6.4% Diagnostic of diabetes: > or = 6.5%. Monitoring of Diabetes Age (y) Therapeutic Goal (%) Adults: >18 <7.0 Pediatrics: 13-18 <7.5 7-12 <8.0 0- 6 7.5-8.5 [employer]. Diabetes Care 33(S1), Feb 2009. Laboratory - Chemistry and C hemistry - challengeon 08-01-2021 Albumin BCP dye [Mass/Vol] 3.8 g/dL 3.4 - 5.0 [facility] Work Phone: ALP [Catalytic activity/Vol] 63 U/L 33 - 136 [facility] Work Phone: ALT With P-5'-P [Catalytic activity/Vol] 5 U/L below low threshold 7 - 45 [facility] Work Phone: Comment on above: Patients treated wit h Sulfasalazine may generate falsely decreased results for ALT. Anion gap [Moles/Vol] 15 mmol/L 10 - 20 [facility] Work Phone: AST With P-5'-P [Catalytic activity/Vol] 10 U/L 9 - 39 [facility]- Work Phone: Bilirubin [Mass/Vol] 0.8 mg/dL 0.0 - 1.2 [facility]- Work Phone: Calcium [Mass/Vol] 9.6 mg/dL 8.6 - 10.6 [facility]- Work Phone: Chloride [Moles/Vol] 103 mmol/L 98 - 107 [facility] Work Phone: CO2 [Moles/Vol] 27 mmol/L 21 - 32 [facility] Work Phone: Creatinine [Mass/Vol] 1.57 mg/dL above high threshold See Below [facility] Work Phone: Comment on above: Reference Range: 0.5 0 - 1.05 Glucose [Mass/Vol] 128 mg/dL above high threshold 74 - 99 [facility]- Work Phone: Potassium [Moles/Vol] 4.2 mmol/L 3.5 - 5.3 [facility] Work Phone: Protein [Mass/Vol] 6.5 g/dL 6.4 - 8.2 [facility]- Work Phone: Sodium [Moles/Vol] 141 mmol/L 136 - 145 [facility]- Work Phone: Urea nitrogen [Mass/Vol] 19 mg/dL 6 - 23 [facility]- Work Phone: Lipid Panelon 08-01-2021 Cholesterol [Mass/Vol] 94 mg/dL 0 - 199 [facility] Work Phone: Comment on above: . AGE DESIRABLE BORD RUDDY HIGH HIGH 0-19 Y 0 - 169 170 - 199 >/= 200 20-24 Y 0 - 189 190 - 224 >/= 225 >24 Y 0 - 199 200 - 239 >/= 240 All ranges are based on fasting samples. Specific therapeutic targets will vary based on patient-specific cardiac risk.. Pediatric guidelines reference:Pediatrics 2011, 128(S5). Adult guidelines reference: NCEP ATPIII Guidelines, BARBY 2001, 258:2486-97. Venipuncture immediately after or during the administration of Metamizole may lead to falsely low results. Testing should be performed immediately prior to Metamizole dosing. Cholesterol in HDL [Mass/Vol] 34.1 mg/dL Abnormal [facility] Work Phone: Comment on above: . AGE VERY LOW LOW N ORMAL HIGH 0-19 Y < 35 < 40 40-45 ---- 20-24 Y ---- < 40 >45 ---- >24 Y ---- < 40 40-60 >60. Cholesterol in LDL [Mass/Vol] 33 mg/dL 0 - 99 [facility] Work Phone: Comment on above: . NEAR BORD AGE LUDIN RABLE OPTIMAL HIGH HIGH VERY HIGH 0-19 Y 0 - 109 --- 110-129 >/= 130 ---- 20-24 Y 0 - 119 --- 120-159 >/= 160 ---- >24 Y 0 - 99 100-129 130-159 160-189 >/=190. Cholesterol.total/Chol esterol in HDL [Mass ratio] 2.8 {ratio} [facility] Work Phone: Comment on above: REF VALUESDESIRABLE < 3.4HIGH RISK > 5.0 Triglyceride [Mass/Vol] 133 mg/dL 0 - 149 [facility] Work Phone: Comment on above: . AGE DESIRABLE BORD RUDDY HIGH HIGH VERY HIGH 0 D-90 D 19 - 174 ---- ---- ----91 D- 9 Y 0 - 74 75 - 99 >/= 100 ---- 10-19 Y 0 - 89 90 - 129 >/= 130 ---- 20-24 Y 0 - 114 115 - 149 >/= 150 ---- >24 Y 0 - 149 150 - 199 200- 499 >/= 500. Venipuncture immediately after or during the administration of Metamizole may lead to falsely low results. Testing should be performed immediately prior to Metamizole dosing. Lipid Panel 27 mg/dL 0 - 40 [facility] Work Phone: No Panel Informationon 08-01 32 {mL/min/1.73m2} Abnormal >90 [facility] Work Phone: Comment on above: CALCULATIONS OF STEVO MATED GFR ARE PERFORMED USING THE 2020 CKD-EPI STUDY REFIT EQUATION WITHOUT THE RACE VARIABLE FOR THE IDMS-TRACEABLE CREATININE [email or web address] Office Visit (Internal Medic ine)on 12-17-2020 Follow-up visit Diagnoses/Problems Assessed Diabetes mellitus (250.00) (E11.9) History of epigastric pain (V12.79) (Z87.19) Anemia, 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) ASHD (arteriosclerotic heart disease) (414.00) (I25.10) Depression (311) (F32.A) Esophageal reflux (530.81) (K21.9) Essential hypertension (401.9) (I10) Patient Discussion/Summary on famotidine and ppi. better f/u 6 mos w/ labs ? Chief Complaint follow up with testing History of Present Illnessf/u dm, htn, hyperlipidemia, testing feels pretty well now Review of Systems no new problems see [place] Active Problems Problems Abnormal serum creatinine level (790.99) (R79.89) Anemia, 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) Anxiety (300.00) (F41.9) ASHD (arteriosclerotic heart disease) (414.00) (I25.10) Benign colonic polyp (211.3) (K63.5) Cough (786.2) (R05.9) Depression (311) (F32.A) Diabetes mellitus (250.00) (E11.9) Esophageal reflux (530.81) (K21.9) Essential hypertension (401.9) (I10) Hyperlipidemia (272.4) (E78.5) Medicare annual wellness visit, subsequent (V70.0) (Z00.00) Mitral regurgitation (424.0) (I34.0) NSVT (nonsustained ventricular tachycardia) (427.1) (I47.2) NILDA (obstructive sleep apnea) (327.23) (G47.33) Pyuria (791.9) (R82.81) Rhinitis (472.0) (J31.0) Past Medical History Problems History of Anemia, 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) History of Benign essential hypertension (401.1) (I10) Resolved Date: 09 Jul 2013 Added by Problem List Migration; 2012-12-16; Moved to [facility] Dec 27 2012 9:07PM History of Bilateral pleural effusion (511.9) (J90) Resolved Date: 25 Jun 2014 History of Colon cancer (153.9) (C18.9) History of Diverticulitis of large intestine without perforation or abscess without bleeding (562.11) (K57.32) Resolved Date: 25 Dec 2019 History of MELLO (dyspnea on exertion) (786.09) (R06.00) Resolved Date: 25 Dec 2019 History of abdominal pain (V13.89) (Z87.898) Resolved Date: 28 Dec 2014 History of acute bronchitis (V12.69) (Z87.09) Resolved Date: 25 Jun 2014 History of acute renal failure (V13.09) (Z87.448) Resolved Date: 25 Dec 2019 History of back pain (V13.59) (Z87.39) Resolved Date: 30 Nov 2020 History of congestive heart failure (V12.59) (Z86.79) Resolved Date: 25 Dec 2019 History of depression (V11.8) (Z86.59) History of diarrhea (V12.79) (Z87.898) Resolved Date: 28 Dec 2014 History of epigastric pain (V12.79) (Z87.19) Resolved Date: 04 Jan 2021 History of gastroesophageal reflux (GERD) (V12.79) (Z87.19) History of Hyperlipidemia (272.4) (E78.5) Added by Problem List Migration; 2012-12-16; Moved to [facility] Dec 27 2012 9:07PM History of Obstructive sleep apnea (327.23) (G47.33) History of Rash (782.1) (R21) Resolved Date: 25 Jun 2014 History of SOB (shortness of breath) on exertion (786.05) (R06.02) Resolved Date: 25 Dec 2019 Surgical History Problems History of Appendectomy History of Cath Stent Placement 06/23/[address] [place] History of Complete Colonoscopy History of Hysterectomy Family History Mother Family history of coronary artery disease (V17.3) (Z82.49) Family history of diabetes mellitus (V18.0) (Z83.3) Father Family history of coronary artery disease (V17.3) (Z82.49) Family history of diabetes mellitus (V18.0) (Z83.3) Social History Problems Never a smoker Allergies Medication No Known Drug Allergies Recorded By: Elise Smalls; 07/09/2013 8:48:37 AM Current Meds Medication NameInstruction ALPRAZolam 0.25 MG Oral TabletTAKE 1 TABLET 4 TIMES DAILY NEEDED. amLODIPine Besylate 5 MG Oral TabletTake 1 tablet by mouth daily Aspirin 81 MG TABS Atorvastatin Calcium 80 MG Oral TabletTAKE 1 TABLET BY MOUTH EVERY DAY Carvedilol 25 MG Oral TabletTAKE 0.5 TABLET Twice daily Citalopram Hydrobromide 40 MG Oral Tablettake 1 tablet by mouth once daily Eliquis 2.5 MG Oral TabletTake 1 tablet twice daily Famotidine 20 MG Oral Tablet1 bid Furosemide 40 MG Oral TabletTAKE 1 TABLET BY MOUTH EVERY DAY Losartan Potassium 25 MG Oral Tablettake 1 tablet by mouth once daily metFORMIN HCl - 500 MG Oral TabletTake 1 tablet by mouth twice a day Montelukast Sodium 10 MG Oral TabletTAKE 1 TABLET BY MOUTH AT BEDTIME Omeprazole 20 MG Oral Capsule Delayed ReleaseTAKE 1 CAPSULE Daily Vitamin B-12 1000 MCG Oral TabletTAKE 1 TABLET DAILY DIRECTED. Vitals Vital Signs Recorded: 17Dec2020 12:25PM Ceceadumacm45.5 F Heart Rate60 Xmlkwynl910 Yqagvyzvh34 Height5 ft Asuvvs207 lb BMI Uwnacyefeo76.89 kg/m2 BSA Calculated1.84 Physical Exam gen nad, affect wnl heent eomfg, face symmetric alert no psychomotor r/a well dressed good insight Results/Data Reviewed labs, ct Signatures Electronically signed by : Eitan Price MD; Jan 04 2021 5:09PM EST (Author) Normal [facility] Abdomen without Contrasto n 12-14-2020 CT Abdomen WO contrast Normal [facility] Work Phone: Hemoglobin A1Con 11-23-2020 Glucose [Mass/Vol] 160 mg/dL [facility] Work Phone: HbA1c (Bld) [Mass fraction] 7.2 % Abnormal [facility] Work Phone: Comment on above: Diagnosis of Diabete s-Adults Non-Diabetic: < or = 5.6% Increased risk for developing diabetes: 5.7-6.4% Diagnostic of diabetes: > or = 6.5%. Monitoring of Diabetes Age (y) Therapeutic Goal (%) Adults: >18 <7.0 Pediatrics: 13-18 <7.5 7-12 <8.0 0- 6 7.5-8.5 [employer]. Diabetes Care 33(S1), Feb 2009. Laboratory - Chemistry and C hemistry - challengeon 11-23-2020 Albumin BCP dye [Mass/Vol] 3.6 g/dL 3.4 - 5.0 [facility] Work Phone: Albumin Ql (U) 8.8 mg/L See Below [facility] Work Phone: Comment on above: Reference Range: Not Established Albumin/Creatinine DL <= 20 mg/L (U) [Mass ratio] 7.5 {ug/mg_crt} 0.0 - 30.0 [facility] Work Phone: ALP [Catalytic activity/Vol] 70 U/L 33 - 136 [facility] Work Phone: ALT With P-5'-P [Catalytic activity/Vol] 14 U/L 7 - 45 [facility] Work Phone: Comment on above: Patients treated wit h Sulfasalazine may generate falsely decreased results for ALT. Anion gap [Moles/Vol] 12 mmol/L 10 - 20 [facility] Work Phone: AST With P-5'-P [Catalytic activity/Vol] 12 U/L 9 - 39 [facility] Work Phone: Bilirubin [Mass/Vol] 0.6 mg/dL 0.0 - 1.2 [facility] Work Phone: Calcium [Mass/Vol] 9.2 mg/dL 8.6 - 10.6 [facility] Work Phone: Chloride [Moles/Vol] 108 mmol/L above high threshold 98 - 107 [facility] Work Phone: CO2 [Moles/Vol] 27 mmol/L 21 - 32 [facility] Work Phone: Creatinine (U) [Mass/Vol] 117.0 mg/dL See Below [facility] Work Phone: Comment on above: Reference Range: 20. 0 - 320.0 Creatinine [Mass/Vol] 1.46 mg/dL above high threshold See Below [facility] Work Phone: Comment on above: Reference Range: 0.5 0 - 1.05 Glucose [Mass/Vol] 122 mg/dL above high threshold 74 - 99 [facility] Work Phone: Potassium [Moles/Vol] 5.0 mmol/L 3.5 - 5.3 [facility] Work Phone: Protein [Mass/Vol] 6.1 g/dL below low threshold 6.4 - 8.2 [facility] Work Phone: Sodium [Moles/Vol] 142 mmol/L 136 - 145 [email or web address] Work Phone: Urea nitrogen [Mass/Vol] 18 mg/dL 6 - 23 [facility] Work Phone: Lipid Panelon 11-23-2020 Cholesterol [Mass/Vol] 101 mg/dL 0 - 199 [facility] Work Phone: Comment on above: . AGE DESIRABLE BORD RUDDY HIGH HIGH 0-19 Y 0 - 169 170 - 199 >/= 200 20-24 Y 0 - 189 190 - 224 >/= 225 >24 Y 0 - 199 200 - 239 >/= 240 All ranges are based on fasting samples. Specific therapeutic targets will vary based on patient-specific cardiac risk.. Pediatric guidelines reference:Pediatrics 2011, 128(S5). Adult guidelines reference: NCEP ATPIII Guidelines, BARBY 2001, 258:2486-97. Venipuncture immediately after or during the administration of Metamizole may lead to falsely low results. Testing should be performed immediately prior to Metamizole dosing. Cholesterol in HDL [Mass/Vol] 40.7 mg/dL [facility] Work Phone: Comment on above: . AGE VERY LOW LOW N ORMAL HIGH 0-19 Y < 35 < 40 40-45 ---- 20-24 Y ---- < 40 >45 ---- >24 Y ---- < 40 40-60 >60. Cholesterol in LDL [Mass/Vol] 31 mg/dL 0 - 99 [facility] Work Phone: Comment on above: . NEAR BORD AGE LUDIN RABLE OPTIMAL HIGH HIGH VERY HIGH 0-19 Y 0 - 109 --- 110-129 >/= 130 ---- 20-24 Y 0 - 119 --- 120-159 >/= 160 ---- >24 Y 0 - 99 100-129 130-159 160-189 >/=190. Cholesterol.total/Chol esterol in HDL [Mass ratio] 2.5 {ratio} [facility] Work Phone: Comment on above: REF VALUESDESIRABLE < 3.4HIGH RISK > 5.0 Triglyceride [Mass/Vol] 145 mg/dL 0 - 149 [facility] Work Phone: Comment on above: . AGE DESIRABLE BORD RUDDY HIGH HIGH VERY HIGH 0 D-90 D 19 - 174 ---- ---- ----91 D- 9 Y 0 - 74 75 - 99 >/= 100 ---- 10-19 Y 0 - 89 90 - 129 >/= 130 ---- 20-24 Y 0 - 114 115 - 149 >/= 150 ---- >24 Y 0 - 149 150 - 199 200- 499 >/= 500. Venipuncture immediately after or during the administration of Metamizole may lead to falsely low results. Testing should be performed immediately prior to Metamizole dosing. Lipid Panel 29 mg/dL 0 - 40 [facility] Work Phone: No Panel Informationon 11-23 41 {mL/min/1.73m2} Abnormal >60 [facility] Work Phone: Comment on above: CALCULATIONS OF STEVO MATED GFR ARE PERFORMED USING THE MDRD STUDY EQUATION FOR THE IDMS-TRACEABLE CREATININE METHODS. CLIN CHEM 2007;53:766-72 34 {mL/min/1.73m2} Abnormal >60 [facility] Work Phone: Tobacco Screening.on 021 Fall risk assessment a) No falls within the last year [facility] Work Phone: Tobacco use status CP b) No [facility] Work Phone: Hemoglobin A1Con 06-22-2020 Glucose [Mass/Vol] 146 mg/dL [facility] Work Phone: HbA1c (Bld) [Mass fraction] 6.7 % [facility] Work Phone: Comment on above: Diagnosis of Diabete s-Adults Non-Diabetic: < or = 5.6% Increased risk for developing diabetes: 5.7-6.4% Diagnostic of diabetes: > or = 6.5%. Monitoring of Diabetes Age (y) Therapeutic Goal (%) Adults: >18 <7.0 Pediatrics: 13-18 <7.5 7-12 <8.0 0- 6 7.5-8.5 [employer]. Diabetes Care 33(S1), Feb 2009. Laboratory - Chemistry and C hemistry - challengeon 06-22-2020 Albumin BCP dye [Mass/Vol] 3.7 g/dL 3.4 - 5.0 [facility] Work Phone: ALP [Catalytic activity/Vol] 76 U/L 33 - 136 [facility] Work Phone: ALT With P-5'-P [Catalytic activity/Vol] 9 U/L 7 - 45 [facility] Work Phone: Comment on above: Patients treated wit h Sulfasalazine may generate falsely decreased results for ALT. Anion gap [Moles/Vol] 12 mmol/L 10 - 20 [facility] Work Phone: AST With P-5'-P [Catalytic activity/Vol] 12 U/L 9 - 39 [facility] Work Phone: Bilirubin [Mass/Vol] 0.7 mg/dL 0.0 - 1.2 [facility] Work Phone: Calcium [Mass/Vol] 9.3 mg/dL 8.6 - 10.6 [facility] Work Phone: Chloride [Moles/Vol] 107 mmol/L 98 - 107 [facility] Work Phone: CO2 [Moles/Vol] 26 mmol/L 21 - 32 [facility] Work Phone: Creatinine [Mass/Vol] 1.20 mg/dL above high threshold See Below [facility] Work Phone: Comment on above: Reference Range: 0.5 0 - 1.05 Glucose [Mass/Vol] 124 mg/dL above high threshold 74 - 99 [facility] Work Phone: Potassium [Moles/Vol] 4.7 mmol/L 3.5 - 5.3 [facility] Work Phone: Protein [Mass/Vol] 6.5 g/dL 6.4 - 8.2 [facility] Work Phone: Sodium [Moles/Vol] 140 mmol/L 136 - 145 [facility] Work Phone: TSH Qn 2.23 m[IU]/L See Below [facility] Work Phone: Comment on above: Reference Range: 0.4 4 - 3.98 TSH testing is performed using different testing methodology at [facility] than at [facility]. Direct result comparisons should only be made within the same method. Urea nitrogen [Mass/Vol] 18 mg/dL 6 - 23 [facility] Work Phone: Lipid Panelon 06-22-2020 Cholesterol [Mass/Vol] 93 mg/dL 0 - 199 [facility] Work Phone: Comment on above: . AGE DESIRABLE BORD RUDDY HIGH HIGH 0-19 Y 0 - 169 170 - 199 >/= 200 20-24 Y 0 - 189 190 - 224 >/= 225 >24 Y 0 - 199 200 - 239 >/= 240 All ranges are based on fasting samples. Specific therapeutic targets will vary based on patient-specific cardiac risk.. Pediatric guidelines reference:Pediatrics 2011, 128(S5). Adult guidelines reference: NCEP ATPIII Guidelines, BARBY 2001, 258:2486-97. Venipuncture immediately after or during the administration of Metamizole may lead to falsely low results. Testing should be performed immediately prior to Metamizole dosing. Cholesterol in HDL [Mass/Vol] 40.3 mg/dL [facility] Work Phone: Comment on above: . AGE VERY LOW LOW N ORMAL HIGH 0-19 Y < 35 < 40 40-45 ---- 20-24 Y ---- < 40 >45 ---- >24 Y ---- < 40 40-60 >60. Cholesterol in LDL [Mass/Vol] 31 mg/dL 0 - 99 [facility] Work Phone: Comment on above: . NEAR BORD AGE LUDIN RABLE OPTIMAL HIGH HIGH VERY HIGH 0-19 Y 0 - 109 --- 110-129 >/= 130 ---- 20-24 Y 0 - 119 --- 120-159 >/= 160 ---- >24 Y 0 - 99 100-129 130-159 160-189 >/=190. Cholesterol.total/Chol esterol in HDL [Mass ratio] 2.3 {ratio} [facility] Work Phone: Comment on above: REF VALUESDESIRABLE < 3.4HIGH RISK > 5.0 Triglyceride [Mass/Vol] 108 mg/dL 0 - 149 [facility] Work Phone: Comment on above: . AGE DESIRABLE BORD RUDDY HIGH HIGH VERY HIGH 0 D-90 D 19 - 174 ---- ---- ----91 D- 9 Y 0 - 74 75 - 99 >/= 100 ---- 10-19 Y 0 - 89 90 - 129 >/= 130 ---- 20-24 Y 0 - 114 115 - 149 >/= 150 ---- >24 Y 0 - 149 150 - 199 200- 499 >/= 500. Venipuncture immediately after or during the administration of Metamizole may lead to falsely low results. Testing should be performed immediately prior to Metamizole dosing. Lipid Panel 22 mg/dL 0 - 40 [facility] Work Phone: No Panel Informationon 06-22 52 {mL/min/1.73m2} Abnormal >60 [facility] Work Phone: Comment on above: CALCULATIONS OF STEVO MATED GFR ARE PERFORMED USING THE MDRD STUDY EQUATION FOR THE IDMS-TRACEABLE CREATININE METHODS. CLIN CHEM 2007;53:766-72 43 {mL/min/1.73m2} Abnormal >60 [facility] Work Phone: Otheron 07-29-2019 [facility] Blood Gas Arterialon 019 FIO2 21 % Normal [facility] Comment on above: Performed By: #### A BG #### [facility] [address] [place], [place] [address] Base Excess 1.7 mmol/L Normal -3.0-3.0 [facility] Comment on above: Performed By: #### A BG #### [facility] [address] [place], [place] [address] HCO3 (Bld) [Moles/Vol] 24.2 mmol/L Normal 21.0-28.0 [facility] Comment on above: Performed By: #### A BG #### [facility] [address] [place], [place] [address] O2% Sat Arterial 98.2 % Normal 96.0-100.0 [facility] Comment on above: Performed By: #### A BG #### [facility] [address] [place], [place] [address] PCO2 Arterial 32.6 mm Hg Low 35.0-45.0 [facility] Comment on above: Performed By: #### A BG #### [facility] [address] [place], [place] [address] pH Arterial 7.484 High 7.350-7.450 [facility] Comment on above: Performed By: #### A BG #### [facility] [address] [place], [place] [address] PO2 Arterial 102.0 mm Hg Normal 83.0-108.0 [facility] Comment on above: Performed By: #### A BG #### [facility] [address] [place] [address] Otheron 07-02-2018 XR Chest 2 views Please click on the link to view the study images Normal [facility] Work Phone: Complete Blood Count + Diffe rentialon 06-26-2018 Basophils (Bld) [#/Vol] 0.04 {x10E9/L} See Below [facility] Work Phone: Comment on above: Reference Range: 0.0 0 - 0.10 Basophils/100 WBC (Bld) 0.5 % 0.0 - 2.0 [facility] Work Phone: Eosinophils (Bld) [#/Vol] 0.17 {x10E9/L} See Below [facility] Work Phone: Comment on above: Reference Range: 0.0 0 - 0.40 Eosinophils/100 WBC (Bld) 2.2 % 0.0 - 6.0 [facility] Work Phone: Erythrocyte distribution width (RBC) [Ratio] 15.1 % above high threshold See Below [facility] Work Phone: Comment on above: Reference Range: 11. 5 - 14.5 Hematocrit (Bld) [Volume fraction] 39.6 % See Below [facility] Work Phone: Comment on above: Reference Range: 36. 0 - 46.0 Hemoglobin (Bld) [Mass/Vol] 12.0 g/dL See Below [facility] Work Phone: Comment on above: Reference Range: 12. 0 - 16.0 Lymphocytes (Bld) [#/Vol] 1.71 {x10E9/L} See Below [facility] Work Phone: Comment on above: Reference Range: 0.8 0 - 3.00 Lymphocytes/100 WBC (Bld) 22.5 % See Below [facility] Work Phone: Comment on above: Reference Range: 13. 0 - 44.0 MCHC (RBC) [Mass/Vol] 30.3 g/dL below low threshold See Below [facility] Work Phone: Comment on above: Reference Range: 32. 0 - 36.0 MCV (RBC) [Entitic vol] 89 fL 80 - 100 [facility] Work Phone: Monocytes (Bld) [#/Vol] 0.78 {x10E9/L} See Below [facility] Work Phone: Comment on above: Reference Range: 0.0 5 - 0.80 Monocytes/100 WBC (Bld) 10.3 % 2.0 - 10.0 [facility] Work Phone: Neutrophils (Bld) [#/Vol] 4.87 {x10E9/L} See Below [facility] Work Phone: Comment on above: Reference Range: 1.6 0 - 5.50 Neutrophils/100 WBC (Bld) 64.1 % See Below [facility] Work Phone: Comment on above: Reference Range: 40. 0 - 80.0 Platelets (Bld) [#/Vol] 190 {x10E9/L} 150 - 450 [facility] Work Phone: RBC (Bld) [#/Vol] 4.45 {x10E12/L} See Below [facility] Work Phone: Comment on above: Reference Range: 4.0 0 - 5.20 WBC (Bld) [#/Vol] 7.6 {x10E9/L} 4.4 - 11.3 [facility] Work Phone: WBC (Bld) [#/Vol] 0.0 {/100_WBC} 0.0-0.0 [facility] Work Phone: Complete Blood Count + Differential 0.4 % 0.0 - 0.9 [facility] Work Phone: Comment on above: Percent differential counts (%) should be interpreted in the context of the absolute cell counts (cells/L). Hemoglobin A1Con 06-26-2018 HbA1c (Bld) [Mass fraction] 6.6 % [facility] Work Phone: Comment on above: Diagnosis of Diabete s-Adults Non-Diabetic: < or = 5.6% Increased risk for developing diabetes: 5.7-6.4% Diagnostic of diabetes: > or = 6.5%. Monitoring of Diabetes Age (y) Therapeutic Goal (%) Adults: >18 <7.0 Pediatrics: 13-18 <7.5 7-12 <8.0 0- 6 7.5-8.5 [employer]. Diabetes Care 33(S1), Feb 2009. HbA1c (Bld) [Mass fraction] 143 {MG/DL} [facility] Work Phone: Lipid Panelon 06-26-2018 Cholesterol [Mass/Vol] 98 mg/dL 0 - 199 [facility] Work Phone: Comment on above: . AGE DESIRABLE BORD RUDDY HIGH HIGH 0-19 Y 0 - 169 170 - 199 >/= 200 20-24 Y 0 - 189 190 - 224 >/= 225 >24 Y 0 - 199 200 - 239 >/= 240 All ranges are based on fasting samples. Specific therapeutic targets will vary based on patient-specific cardiac risk.. Pediatric guidelines reference:Pediatrics 2011, 128(S5). Adult guidelines reference: NCEP ATPIII Guidelines, BARBY 2001, 258:8046-97. Venipuncture immediately after or during the administration of Metamizole may lead to falsely low results. Testing should be performed immediately prior to Metamizole dosing. Cholesterol in HDL [Mass/Vol] 30.7 mg/dL Abnormal [facility] Work Phone: Comment on above: . AGE VERY LOW LOW N ORMAL HIGH 0-19 Y < 35 < 40 40-45 ---- 20-24 Y ---- < 40 >45 ---- >24 Y ---- < 40 40-60 >60. Cholesterol in LDL [Mass/Vol] 29 mg/dL 0 - 99 [facility] Work Phone: Comment on above: . NEAR BORD AGE LUDIN RABLE OPTIMAL HIGH HIGH VERY HIGH 0-19 Y 0 - 109 --- 110-129 >/= 130 ---- 20-24 Y 0 - 119 --- 120-159 >/= 160 ---- >24 Y 0 - 99 100-129 130-159 160-189 >/=190. Cholesterol.total/Chol esterol in HDL [Mass ratio] 3.2 {ratio} [facility] Work Phone: Comment on above: REF VALUESDESIRABLE < 3.4HIGH RISK > 5.0 Triglyceride [Mass/Vol] 193 mg/dL above high threshold 0 - 149 [facility] Work Phone: Comment on above: . AGE DESIRABLE BORD RUDDY HIGH HIGH VERY HIGH 0 D-90 D 19 - 174 ---- ---- ----91 D- 9 Y 0 - 74 75 - 99 >/= 100 ---- 10-19 Y 0 - 89 90 - 129 >/= 130 ---- 20-24 Y 0 - 114 115 - 149 >/= 150 ---- >24 Y 0 - 149 150 - 199 200- 499 >/= 500. Venipuncture immediately after or during the administration of Metamizole may lead to falsely low results. Testing should be performed immediately prior to Metamizole dosing. Lipid Panel 39 mg/dL 0 - 40 [facility] Work Phone: Metabolic Panelon 06-26-2018 ALP [Catalytic activity/Vol] 61 U/L 33 - 136 [facility]- Work Phone: Anion gap [Moles/Vol] 15 mmol/L 10 - 20 [facility] Work Phone: Bilirubin [Mass/Vol] 0.7 mg/dL 0.0 - 1.2 [facility] Work Phone: Calcium [Mass/Vol] 9.8 mg/dL 8.6 - 10.6 [facility] Work Phone: Chloride [Moles/Vol] 107 mmol/L 98 - 107 [facility] Work Phone: CO2 [Moles/Vol] 25 mmol/L 21 - 32 [facility] Work Phone: Creatinine [Mass/Vol] 1.25 mg/dL above high threshold See Below [facility] Work Phone: Comment on above: Reference Range: 0.5 0 - 1.05 Glucose [Mass/Vol] 128 mg/dL above high threshold 74 - 99 [facility]- Work Phone: Potassium [Moles/Vol] 4.9 mmol/L 3.5 - 5.3 [facility] Work Phone: Protein [Mass/Vol] 6.6 g/dL 6.4 - 8.2 [facility]- Work Phone: Sodium [Moles/Vol] 142 mmol/L 136 - 145 [facility]- Work Phone: Urea nitrogen [Mass/Vol] 22 mg/dL 6 - 23 [facility]- Work Phone: Otheron 06-26-2018 Albumin BCP dye [Mass/Vol] 3.6 g/dL 3.4 - 5.0 [facility] Work Phone: ALT With P-5'-P [Catalytic activity/Vol] 9 U/L 7 - 45 [facility] Work Phone: Comment on above: Patients treated wit h Sulfasalazine may generate falsely decreased results for ALT. AST With P-5'-P [Catalytic activity/Vol] 13 U/L 9 - 39 [facility] Work Phone: 50 {mL/min/1.73m2} Abnormal >60 [facility] Work Phone: Comment on above: CALCULATIONS OF STEVO MATED GFR ARE PERFORMED USING THE MDRD STUDY EQUATION FOR THE IDMS-TRACEABLE CREATININE METHODS. CLIN CHEM 2007;53:766-72 41 {mL/min/1.73m2} Abnormal >60 [facility] Work Phone: Vitamin B12, Serumon 019 Cobalamin (Vitamin B12) [Mass/Vol] 1299 pg/mL above high threshold 211 - 911 [facility] Work Phone: Office Visiton 09-19-2016 Documentation of current medications (procedure) Done Invalid [facility]: [phone] Fall risk assessment No Invalid Interpretation Code [facility] Work Phone: [phone] Lab Report: CBC-Complete Blo od Cnt No Diffon 08-31-2016 Erythrocytes (RBC) 4.35 10*6/uL Invalid Interpretation Code 4.2-5.4 [facility] Work Phone: [phone] Hematocrit (HCT) 38.0 % Invalid Interpretation Code 37-47 [facility] Work Phone: [phone] Hemoglobin (HGB) 12.4 g/dL Invalid Interpretation Code 12.0-15.0 [facility] Work Phone: [phone] MCH 28.5 pg Invalid Interpretation Code 27.0-32.0 [facility] Work Phone: [phone] MCHC 32.6 G/GL Invalid Interpretation Code 32-36 [facility] [employer] Work Phone: [phone] MCV 87.4 fL Invalid Interpretation Code 81-99 [facility] Work Phone: [phone] Platelets 167 10*3/mm3 Invalid Interpretation Code 150-450 [facility] [employer] Work Phone: [phone] PMV by Adiel-Rahul 12.3 fL High 6.2-12.0 [facility] Work Phone: [phone] RDW-CA 14.5 % Invalid Interpretation Code 11.6-14.6 [facility] [employer] Work Phone: [phone] red blood cell distribution width, size density 46.0 fL High 35.1-43.9 [facility] [employer] Work Phone: [phone] WBC (Leukocytes) 6.5 10*3/uL Invalid Interpretation Code 4.4-11.0 [facility] [employer] Work Phone: [phone] Lab Report: Lipid Profileon 08-31-2016 Cholesterol 95 mg/dL Invalid Interpretation Code 200 [employer] [employer] Work Phone: [phone] HDL Cholesterol 38 mg/dL Low [facility] Work Phone: [phone] LDL Cholesterol 33 mg/dL Invalid Interpretation Code 0-130 [facility] Work Phone: [phone] Triglyceride 119 mg/dL Invalid Interpretation Code [facility] Work Phone: [phone] very low density lipoproteins 24 mg/dL Invalid Interpretation Code 5-40 [facility] Work Phone: [phone] Lab Report: Liver Profileon 08-31-2016 Alanine aminotransferase (ALT) 18 U/L Invalid Interpretation Code 12-78 [facility] [employer] Work Phone: [phone] Albumin 3.1 g/dL Low 3.4-5.0 [facility] Work Phone: [phone] Alkaline phosphatase (ALP) 75 U/L Invalid Interpretation Code 45-117 [facility] Work Phone: [phone] Aspartate aminotransferase (AST) 13 U/L Low 15-37 [facility] Work Phone: [phone] Bilirubin (direct) 0.16 mg/dL Invalid Interpretation Code 0.00-0.30 [facility] Work Phone: [phone] Bilirubin (total) 0.50 mg/dL Invalid Interpretation Code 0.20-1.00 [facility] Work Phone: [phone] Globulin 3.8 g/dL High 2.3-3.5 [facility] Work Phone: [phone] Protein 6.9 g/dL Invalid Interpretation Code 6.4-8.2 [facility] Work Phone: [phone] Office Visiton 07-11-2016 Dietary management education, guidance, and counseling (procedure) yes Invalid Interpretation Code [facility] Work Phone: [phone] Documentation of current medications (procedure) Done Invalid Interpretation Code [facility] Work Phone: [phone] Tobacco use CPHS Never smoker Invalid Interpretation Code [facility] Work Phone: [phone] Clinical Lists Update: 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 glass driller 06-29-2016 Anion gap 7 mmol/L Invalid Interpretation Code [facility] Work Phone: [phone] Anion gap [Moles/Vol] 7 mmol/L [facility] Work Phone: [phone] BUN/Creatinine Ratio 15.3 mg/mg Invalid Interpretation Code [facility] Work Phone: [phone] Calcium 8.6 mg/dL Invalid Interpretation Code [facility] Work Phone: [phone] Chloride 105 mmol/L Invalid Interpretation Code [facility] Work Phone: [phone] CO2 29 mmol/L Invalid Interpretation Code [facility] Work Phone: [phone] CO2 (BldV) [Partial pressure] 29 mmol/L [facility] Work Phone: [phone] Creatinine 0.92 mg/dL Invalid Interpretation Code [facility] Work Phone: [phone] Glucose 138 mg/dL Invalid Interpretation Code [facility] Work Phone: [phone] Glucose [Mass/Vol] 138 mg/dL [facility] Work Phone: [phone] Potassium 4.1 mmol/L Invalid Interpretation Code [facility] Work Phone: [phone] Sodium 141 mmol/L Invalid Interpretation Code [facility] Work Phone: [phone] Urea nitrogen 14 mg/dL Invalid Interpretation Code [facility] Work Phone: [phone] Clinical Lists Update: 06-28-2016 Hematocrit (Bld) [Volume fraction] 28 % Low [facility] Work Phone: [phone] Hematocrit (HCT) 28 % Low [facility] Work Phone: [phone] Hemoglobin (HGB) 9.1 g/dL Low [facility] Work Phone: [phone] Platelets 143 10*3/mm3 Low [facility] Work Phone: [phone] Platelets (Bld) [#/Vol] 143 10*3/mm3 Low [facility] Work Phone: [phone] Clinical Lists Update: 06-23-2016 Cholesterol 94 mg/dL Invalid Interpretation Code [facility] Work Phone: [phone] HDL Cholesterol 34 mg/dL Invalid Interpretation Code [facility] Work Phone: [phone] LDL Cholesterol 30 mg/dL Invalid Interpretation Code [facility] Work Phone: [phone] Left ventricular Ejection fraction 75 % Invalid Interpretation Code [facility] Work Phone: [phone] Triglyceride 151 mg/dL Invalid Interpretation Code [facility] Work Phone: [phone] Otheron 07-14-2010 CONVERTED CLINICAL HISTORY OPERATIVE PROCEDURE: Colon CLINICAL INFORMATION: H/O colon ca, polyps, inflamm of small bowel [facility] CONVERTED ELECTRONIC SIGNATURE GHADA HOSKINS M.D., PATHOLOGIST (Electronic signature on file) Final Signed Out: 07/14/2010 16:44 [facility] CONVERTED FINAL DIAGNOSIS FINAL DIAGNOSIS: A) SIGMOID COLON POLYP, BIOPSY - HYPERPLASTIC POLYP. B) TRANSVERSE COLON POLYP, BIOPSY - TUBULAR ADENOMA. C) ILEOCOLONIC ANASTOMOSIS, BIOPSIES - MARKED ACUTE ILEITIS. SEE COMMENT. COMMENT: The ileocolonic anastomosis demonstrates acute inflammation involving surface epithelium of small bowel type mucosa. The findings are entirely nonspecific and should be correlated with the clinical impression. Additionally, there is edema of the lamina propria. The findings are negative for malignancy. SPECIMEN: (A) SIGMOID BIOPSY (B) COLON BX, TRANS. (C) COLON BIOPSY [facility] CONVERTED GROSS DESCRIPTION GROSS DESCRIPTION: Sigmoid polyp A) Received is a single oval thomas portion of tissue measuring 0.2 cm in diameter. Specimen totally submitted in cassette A x 3. Transverse colon polyp B) Received is a portion of soft thomas tissue measuring 0.3 cm in diameter. Specimen totally submitted in cassette B x 3. Ileocolonic anastomosis bx C) Received are two portions of soft red-thomas tissue measuring 0.2 and 0.3 cm in diameter. Specimen totally submitted in cassette C x 3. SMS:[facility] MICROSCOPIC DESCRIPTION: Slides reviewed. AP/lrs [facility] CONVERTED ORDERING PROVIDER Ordering Provider: [facility] Otheron 11-12-2008 CONVERTED CLINICAL HISTORY OPERATIVE PROCEDURE: Colonoscopy CLINICAL INFORMATION: H/O ca colon, inflamm in small bowel at anastomosis [facility] CONVERTED ELECTRONIC SIGNATURE GHADA HOSKINS M.D., PATHOLOGIST (Electronic signature on file) Final Signed Out: 11/12/2008 13:39 [facility] CONVERTED FINAL DIAGNOSIS FINAL DIAGNOSIS: SMALL BOWEL AT ANASTOMOSIS, BIOPSIES - FOCAL ACTIVE INFLAMMATION. NEGATIVE FOR MALIGNANCY. SEE COMMENT. COMMENT: The biopsies display active inflammation of surface epithelium and also glandular epithelium. The pattern of active inflammation is nonspecific. There is no evidence of necrosis. The focal mild changes are not accompanied by atypical features. SPECIMEN: COLON BIOPSY [facility] CONVERTED GROSS DESCRIPTION GROSS DESCRIPTION: Anastomosis bxs The specimen is received in a container labeled anastomosis biopsy. Received are portions of soft red-thomas tissue measuring 0.3 cm in aggregate diameter. The specimen is totally submitted in a single cassette x3. EDS/SMS/gpl MICROSCOPIC DESCRIPTION: Slides reviewed. AP/lrs [facility] CONVERTED ORDERING PROVIDER [facility]acon 10-24-2007 Cholesterol [Mass/Vol] GALLBLADDER, RESECTION - CHRONIC CHOLECYSTITIS. [facility] Otheron 10-24-2007 CONVERTED ORDERING PROVIDER Ordering Provider: MCKAY WANG [facility] Thyroidon 10-24-2007 TSH Kalyan BUTLER M.D., PATHOLOGIST (Electronic signature on file) Final Signed Out: 10/24/2007 14:31 [facility] Vital Signs Date Time Vital Sign Value Performing Clinician Facility 11-28-2023 09:59-0400 Body height 149.9 cm Eitan Price MD Work Phone: [facility] 11-28-2023 09:59-0400 Body mass index (BMI) [Ratio] 37.16 kg/m2 Eitan Price MD Work Phone: [facility] 11-28-2023 09:59-0400 Body weight 83.46 kg Eitan Price MD Work Phone: [facility] 11-28-2023 09:59-0400 Diastolic blood pressure 70 mm[Hg] Eitan Price MD Work Phone: [facility] 11-28-2023 09:59-0400 Heart rate 55 /min Eitan Price MD Work Phone: [facility] 11-28-2023 09:59-0400 SaO2% (BldA) [Mass fraction] 98 % Eitan Price MD Work Phone: [facility] 11-28-2023 09:59-0400 Systolic blood pressure 120 mm[Hg] Eitan Price MD Work Phone: [facility] 11-13-2023 09:18-0400 Body height 149.9 cm Mark Vazquez MD Work Phone: [facility] 11-13-2023 09:18-0400 Body mass index (BMI) [Ratio] 36.96 kg/m2 Mark Vazquez MD Work Phone: [facility] 11-13-2023 09:18-0400 Body weight 83.01 kg Mark Vazquez MD Work Phone: [facility] 11-13-2023 09:18-0400 Respiratory rate 16 /min Mark Vazquez MD Work Phone: [facility] 10-03-2023 15:01-0400 Body height 149.9 cm Eitan Price MD Work Phone: [facility] 10-03-2023 15:01-0400 Body mass index (BMI) [Ratio] 36.96 kg/m2 Eitan Price MD Work Phone: [facility] 10-03-2023 15:01-0400 Body weight 83.01 kg Eitan Price MD Work Phone: [facility] 10-03-2023 15:01-0400 Diastolic blood pressure 72 mm[Hg] Eitan Price MD Work Phone: [facility] 10-03-2023 15:01-0400 Heart rate 50 /min Eitan Price MD Work Phone: [facility] 10-03-2023 15:01-0400 SaO2% (BldA) [Mass fraction] 96 % Eitan Price MD Work Phone: [facility] 10-03-2023 15:01-0400 Systolic blood pressure 122 mm[Hg] Eitan Price MD Work Phone: [facility] 06-25-2023 14:04-0400 Body mass index (BMI) [Ratio] 36.56 kg/m2 Eitan Price MD Work Phone: [facility] 06-25-2023 14:04-0400 Body weight 82.1 kg Eitan Price MD Work Phone: [facility] 06-25-2023 14:04-0400 Diastolic blood pressure 66 mm[Hg] Eitan Price MD Work Phone: [facility] 06-25-2023 14:04-0400 Heart rate 49 /min Eitan Price MD Work Phone: [facility] 06-25-2023 14:04-0400 SaO2% (BldA) [Mass fraction] 100 % Eitan Price MD Work Phone: [facility] 06-25-2023 14:04-0400 Systolic blood pressure 116 mm[Hg] Eitan Price MD Work Phone: [facility] 12-26-2022 10:02-0500 Body height 149.9 cm Erica CASILLAS Work Phone: [facility] 12-26-2022 10:02-0500 Body mass index (BMI) [Ratio] 36.15 kg/m2 Erica CASILLAS Work Phone: [facility] 12-26-2022 10:02-0500 Body temperature 98.01 [degF] Erica CASILLAS Work Phone: [facility] 12-26-2022 10:02-0500 Body weight 81.19 kg Erica Thompson APRN-LOS Work Phone: [facility] 12-26-2022 10:02-0500 Diastolic blood pressure 69 mm[Hg] Erica Thompson APRN-LOS Work Phone: [facility] 12-26-2022 10:02-0500 Heart rate 68 /min Erica CASILLAS Work Phone: [facility] 12-26-2022 10:02-0500 Respiratory rate 18 /min Erica CASILLAS Work Phone: [facility] 12-26-2022 10:02-0500 Systolic blood pressure 137 mm[Hg] Erica CASILLAS Work Phone: [facility] 12-13-2022 14:28-0500 Body height 149.9 cm Eitan Price MD Work Phone: [facility] 12-13-2022 14:28-0500 Body mass index (BMI) [Ratio] 35.95 kg/m2 Eitan Price MD Work Phone: [facility] 12-13-2022 14:28-0500 Body temperature 97.11 [degF] Eitan Price MD Work Phone: [facility] 12-13-2022 14:28-0500 Body weight 80.74 kg Eitan Price MD Work Phone: [facility] 12-13-2022 14:28-0500 Diastolic blood pressure 70 mm[Hg] Eitan Price MD Work Phone: [facility] 12-13-2022 14:28-0500 Heart rate 70 /min Eitan Price MD Work Phone: [facility] 12-13-2022 14:28-0500 SaO2% (BldA) [Mass fraction] 97 % Eitan Price MD Work Phone: [facility] 12-13-2022 14:28-0500 Systolic blood pressure 122 mm[Hg] Eitan Price MD Work Phone: [facility] 12-06-2022 14:34-0400 Body height 149.[address] Eitan Price Work Phone: [facility] 12-06-2022 14:34-0400 Body mass index (BMI) [Ratio] 35.9 kg/m2 Dr. Eitan Price Work Phone: [facility] 12-06-2022 14:34-0400 Body weight 80.[address] Eitan Price Work Phone: [facility] 12-06-2022 14:34-0400 Diastolic blood pressure 79 mm[Hg] Dr. Eitan Price Work Phone: [facility] 12-06-2022 14:34-0400 Heart rate 69 /min Dr. Eitan Price Work Phone: [facility] 12-06-2022 14:34-0400 Respiratory rate 16 /min Dr. Eitan Price Work Phone: [facility] 12-06-2022 14:34-0400 Systolic blood pressure 154 mm[Hg] Dr. Eitan Price Work Phone: [facility] 12-02-2022 10:00-0400 Diastolic blood pressure 59 mm[Hg] Corbin Bryan MD Work Phone: [facility] 12-02-2022 10:00-0400 Heart rate 72 /min Corbin Bryan MD Work Phone: [facility] 12-02-2022 10:00-0400 Respiratory rate 18 /min Corbin Bryan MD Work Phone: [facility] 12-02-2022 10:00-0400 SaO2% (BldA) [Mass fraction] 98 % Corbin Bryan MD Work Phone: [facility] 12-02-2022 10:00-0400 Systolic blood pressure 121 mm[Hg] Corbin Bryan MD Work Phone: [facility] 12-02-2022 08:00-0400 Body temperature 97.7 [degF] Corbin Bryan MD Work Phone: [facility] 11-30-2022 18:56-0400 Body height 149.9 cm Corbin Bryan MD Work Phone: [facility] 11-30-2022 18:56-0400 Body mass index (BMI) [Ratio] 37.38 kg/m2 Corbin Bryan MD Work Phone: [facility] 11-30-2022 18:56-0400 Body weight 84 kg Corbin Bryan MD Work Phone: [facility] 06-02-2022 10:30-0400 Body height 152.4 cm Tori Roblero DIRECTOR [employer]ER SERVICES[employer] Work Phone: [facility] 06-02-2022 10:30-0400 Body mass index (BMI) [Ratio] 35.9 kg/m2 Tori Roblero DIRECTOR [employer] Work Phone: [facility] 06-02-2022 10:30-0400 Body temperature 98.01 [degF] Tori Roblero DIRECTOR [employer] Work Phone: [facility] 06-02-2022 10:30-0400 Body weight 83.37 kg Tori Roblero DIRECTOR [employer] Work Phone: [facility] 06-02-2022 10:30-0400 Diastolic blood pressure 74 mm[Hg] Tori Roblero DIRECTOR [employer] Work Phone: [facility] 06-02-2022 10:30-0400 Heart rate 77 /min Tori Roblero DIRECTOR [employer] Work Phone: [facility] 06-02-2022 10:30-0400 SaO2% (BldA) [Mass fraction] 97 % Tori Roblero DIRECTOR [employer] Work Phone: [facility] 06-02-2022 10:30-0400 Systolic blood pressure 130 mm[Hg] Tori Roblero DIRECTOR [employer] Work Phone: [facility] 12-14-2021 08:37-0500 Body temperature 97.5 [degF] Eitan Ayleen Mabee [facility] Work [facility]: 12-14-2021 08:37-0500 Diastolic blood pressure 78 mm[Hg] Eitan Ayleen Mabee Work Phone: [employer] Work Phone: 12-14-2021 08:37-0500 Heart rate 63 /min Eitan Ayleen Mabee Work Phone: [facility] Work Phone: 12-14-2021 08:37-0500 SaO2% (BldA) [Mass fraction] 98 % Eitan Ayleen Mabee Work Phone: [facility] Work Phone: 12-14-2021 08:37-0500 Systolic blood pressure 130 mm[Hg] Eitan W Mabee Work Phone: [facility] Work Phone: 12-14-2021 08:30-0500 Body height 152.4 cm Eitan W Mabee Work Phone: [facility] Work Phone: 12-14-2021 08:30-0500 Body mass index (BMI) [Ratio] 37.69 kg/m2 Eitan Price Work Phone: [facility] Work Phone: 12-14-2021 08:30-0500 Body surface area Derived from formula 1.84 m2 Eitan Price Work Phone: [facility] Work Phone: 12-14-2021 08:30-0500 Body weight 87.54 kg Eitan Price Work Phone: [facility] Work Phone: 12-12-2021 09:25-0500 Diastolic blood pressure 53 mm[Hg] [facility] Work Phone: [facility] 12-12-2021 09:25-0500 Heart rate 51 /min [facility] Work Phone: [facility] 12-12-2021 09:25-0500 Respiratory rate 16 /min [facility] Work Phone: [facility] 12-12-2021 09:25-0500 SaO2% (BldA) [Mass fraction] 98 % [facility] Work Phone: [facility] 12-12-2021 09:25-0500 Systolic blood pressure 148 mm[Hg] [facility] Work Phone: [facility] 12-12-2021 08:34-0500 Body temperature 98.4 [degF] [facility] Work Phone: [facility] 12-09-2021 09:54-0400 Diastolic blood pressure 63 mm[Hg] [facility] Work Phone: [facility] 12-09-2021 09:54-0400 Heart rate 54 /min [facility] Work Phone: [facility] 12-09-2021 09:54-0400 Respiratory rate 16 /min [facility] Work Phone: [facility] 12-09-2021 09:54-0400 SaO2% (BldA) [Mass fraction] 97 % [facility] Work Phone: [facility] 12-09-2021 09:54-0400 Systolic blood pressure 146 mm[Hg] [facility] Work Phone: [facility] 12-09-2021 09:00-0400 Body temperature 98.6 [degF] [facility] Work Phone: [facility] 12-07-2021 10:12-0400 Diastolic blood pressure 47 mm[Hg] [facility] Work Phone: [facility] 12-07-2021 10:12-0400 Heart rate 62 /min [facility] Work Phone: [facility] 12-07-2021 10:12-0400 Respiratory rate 16 /min [facility] Work Phone: [facility] 12-07-2021 10:12-0400 SaO2% (BldA) [Mass fraction] 97 % [facility] Work Phone: [facility] 12-07-2021 10:12-0400 Systolic blood pressure 136 mm[Hg] [facility] Work Phone: [facility] 12-07-2021 09:07-0400 Body temperature 98.4 [degF] [facility] Work Phone: [facility] 11-09-2021 15:23-0400 Body temperature 97.1 [degF] Eitan Price Work Phone: [facility] Work Phone: 11-09-2021 15:23-0400 Diastolic blood pressure 78 mm[Hg] Eitan Price [facility]: [facility] Work Phone: 11-09-2021 15:23-0400 Heart rate 61 /min Eitan Price Work Phone: [facility] Work Phone: 11-09-2021 15:23-0400 SaO2% (BldA) [Mass fraction] 99 % Eitan Price Work Phone: [facility] Work Phone: 11-09-2021 15:23-0400 Systolic blood pressure 126 mm[Hg] Eitan Price Work Phone: [facility] Work Phone: 11-09-2021 15:20-0400 Body height 152.4 cm Eitan Price Work Phone: [facility] Work Phone: 11-09-2021 15:20-0400 Body mass index (BMI) [Ratio] 38.08 kg/m2 Eitan Price Work Phone: [facility] Work Phone: 11-09-2021 15:20-0400 Body surface area Derived from formula 1.85 m2 Eitan Price Work Phone: [facility] Work Phone: 11-09-2021 15:20-0400 Body weight 88.45 kg Eitan Price Work Phone: [facility] Work Phone: 10-06-2021 16:03-0400 Body height 152.4 cm Eitan Abbasi [employer] Work Phone: [facility] Work Phone: 10-06-2021 16:03-0400 Body mass index (BMI) [Ratio] 38.47 kg/m2 Eitan Abbasi [facility] Work Phone: [facility] Work Phone: 10-06-2021 16:03-0400 Body surface area Derived from formula 1.85 m2 Eitan Bradshawee Work Phone: -[facility]- Work Phone: 10-06-2021 16:03-0400 Body weight 89.36 kg Eitan Bradshawee Work Phone: -[facility]- Work Phone: 10-06-2021 16:03-0400 Diastolic blood pressure 78 mm[Hg] Eitan Bradshawee Work Phone: -[facility]- Work Phone: 10-06-2021 16:03-0400 Heart rate 76 /min Eitan Bradshawee Work Phone: [facility] Work Phone: 10-06-2021 16:03-0400 Systolic blood pressure 136 mm[Hg] Eitan Bradshawee Work Phone: -[facility]- Work Phone: 09-22-2021 14:01-0400 Body height 152.4 cm Eitan Bradshawee Work Phone: [facility] Work Phone: 09-22-2021 14:01-0400 Body mass index (BMI) [Ratio] 39.06 kg/m2 Eitan Bradshawee Work Phone: [facility]- Work Phone: 09-22-2021 14:01-0400 Body surface area Derived from formula 1.87 m2 Eitan Abbasi [employer] Work Phone: [facility]- Work Phone: 09-22-2021 14:01-0400 Body weight 90.72 kg Eitan Bradshawee Work Phone: -[facility]- Work Phone: 09-22-2021 14:01-0400 Diastolic blood pressure 76 mm[Hg] Eitan Bradshawee Work Phone: -[facility]- Work Phone: 09-22-2021 14:01-0400 Heart rate 63 /min Eitan Bradshawee Work Phone: -[facility]- Work Phone: 09-22-2021 14:01-0400 Systolic blood pressure 132 mm[Hg] Eitan Bradshawee Work Phone: -[facility]- Work Phone: 09-07-2021 13:59-0400 Body height 152.4 cm Eitan Bradshawee Work Phone: [facility] Work Phone: 09-07-2021 13:59-0400 Body mass index (BMI) [Ratio] 37.69 kg/m2 Eitan Bradshawee Work Phone: -[facility]- Work Phone: 09-07-2021 13:59-0400 Body surface area Derived from formula 1.84 m2 Eitan Bradshawee Work Phone: -[facility]- Work Phone: 09-07-2021 13:59-0400 Body weight 87.54 kg Eitan Bradshawee Work Phone: -[facility]- Work Phone: 09-07-2021 13:59-0400 Diastolic blood pressure 74 mm[Hg] Eitan Bradshawee Work Phone: [facility] Work Phone: 09-07-2021 13:59-0400 Heart rate 68 /min Eitan Abbasi [employer] Work Phone: -[facility]- Work Phone: 09-07-2021 13:59-0400 Systolic blood pressure 130 mm[Hg] Eitan Abbasi [facility] Work Phone: -[facility]- Work Phone: 08-02-2021 13:25-0400 Body height 152.4 cm Eitan Abbasi [employer] Work Phone: -[facility]- Work Phone: 08-02-2021 13:25-0400 Body mass index (BMI) [Ratio] 37.89 kg/m2 Eitan Abbasi [employer] Work Phone: -[facility]- Work Phone: 08-02-2021 13:25-0400 Body surface area Derived from formula 1.84 m2 Eitan Abbasi [employer] Work Phone: -[facility]- Work Phone: 08-02-2021 13:25-0400 Body weight 88 kg Eitan Abbasi [employer] Work Phone: -[facility]- Work Phone: 08-02-2021 13:25-0400 Diastolic blood pressure 74 mm[Hg] Eitan Abbasi [place] Work Phone: -[facility] Work Phone: 08-02-2021 13:25-0400 Heart rate 79 /min Eitan Abbasi [place] Work Phone: -[facility]- Work Phone: 08-02-2021 13:25-0400 Systolic blood pressure 130 mm[Hg] Eitan Abbasi [place] Work Phone: -[facility]- Work Phone: 12-17-2020 12:25-0500 Body height 152.4 cm Eitan Abbasi Mabee Work Phone: -[facility]- Work Phone: 12-17-2020 12:25-0500 Body mass index (BMI) [Ratio] 37.89 kg/m2 Eitan Abbasi [place]ab[place] Work Phone: -[facility]- Work Phone: 12-17-2020 12:25-0500 Body surface area Derived from formula 1.84 m2 Eitan Abbasi Mabee Work Phone: -[facility]- Work Phone: 12-17-2020 12:25-0500 Body temperature 97.5 [degF] Eitan Bradshawee Work Phone: -[facility]- Work Phone: 12-17-2020 12:25-0500 Body weight 88 kg Eitan Abbasi Mabee Work Phone: -[facility]- Work Phone: 12-17-2020 12:25-0500 Diastolic blood pressure 60 mm[Hg] Eitan Bradshawee Work Phone: -[facility]- Work Phone: 12-17-2020 12:25-0500 Heart rate 60 /min Eitan Abbasi [place]ab[place] Work Phone: -[facility]- Work Phone: 12-17-2020 12:25-0500 Systolic blood pressure 110 mm[Hg] Eitan Abbasi Mab[place] Work Phone: -[facility]- Work Phone: 11-30-2020 14:00-0400 Body height 152.4 cm Eitan Bradshawee Work Phone: -[facility] Work Phone: 11-30-2020 14:00-0400 Body mass index (BMI) [Ratio] 37.3 kg/m2 Eitan Bradshawee Work Phone: -[facility] Work Phone: 11-30-2020 14:00-0400 Body surface area Derived from formula 1.83 m2 Eitan Bradshawee Work Phone: -[facility] Work Phone: 11-30-2020 14:00-0400 Body temperature 97.3 [degF] Eitan Bradshawee Work Phone: -[facility] Work Phone: 11-30-2020 14:00-0400 Body weight 86.64 kg Eitan Bradshawee Work Phone: -[facility] Work Phone: 11-30-2020 14:00-0400 Diastolic blood pressure 68 mm[Hg] Eitan Bradshawee Work Phone: -[facility] Work Phone: 11-30-2020 14:00-0400 Heart rate 58 /min Eitan Bradshawee Work Phone: [facility] Work Phone: 11-30-2020 14:00-0400 Systolic blood pressure 128 mm[Hg] Eitan Bradshawee Work Phone: [facility] Work Phone: 11-10-2020 09:35-0400 Body height 152.4 cm Eitan Bradshawee Work Phone: [facility] Work Phone: 11-10-2020 09:35-0400 Body mass index (BMI) [Ratio] 37.5 kg/m2 Eitan Bradshawee Work Phone: -[facility]- Work Phone: 11-10-2020 09:35-0400 Body surface area Derived from formula 1.83 m2 Eitan Bradshawee Work Phone: -[facility]- Work Phone: 11-10-2020 09:35-0400 Body temperature 97.3 [degF] Eitan Bradshawee Work Phone: -[facility]- Work Phone: 11-10-2020 09:35-0400 Body weight 87.09 kg Eitan Price Work Phone: [facility]- Work Phone: 11-10-2020 09:35-0400 Diastolic blood pressure 68 mm[Hg] Eitan Price Work Phone: -[facility]- Work Phone: 11-10-2020 09:35-0400 Heart rate 60 /min Eitan Price [facility] Work Phone: 11-10-2020 09:35-0400 Systolic blood pressure 132 mm[Hg] Eitan Bradshawee Work Phone: [facility]- Work Phone: 07-01-2020 15:02-0400 Body mass index (BMI) [Ratio] 17.97 kg/m2 Eitan Bradshawee Work Phone: [facility]- Work Phone: 07-01-2020 15:02-0400 Body surface area Derived from formula 1.34 m2 Eitan Bradshawee Work Phone: -[facility] Work Phone: 07-01-2020 15:02-0400 Body temperature 97.85 [degF] Eitan Bradshawee Work Phone: -[facility] Work Phone: 07-01-2020 15:02-0400 Body weight 41.73 kg Eitan Bradshawee Work Phone: -[facility] Work Phone: 07-01-2020 15:02-0400 Diastolic blood pressure 70 mm[Hg] Eitan Price Work Phone: -[facility] Work Phone: 07-01-2020 15:02-0400 Heart rate 62 /min Eitan Price Work Phone: -[facility] Work Phone: 07-01-2020 15:02-0400 Systolic blood pressure 128 mm[Hg] Eitan Price Work Phone: -[facility] Work Phone: 08-14-2018 15:56-0400 Body temperature 37.0 Deg [facility] Comment on above: Performed By: #### ABG #### [place] [id number] 07-02-2018 11:57-0400 BMI (Body Mass Index) 38.28 kg/m2 Eitan Price -[facility] Work Phone: 07-02-2018 11:57-0400 Body Temperature 97.7 [degF] Eitan Price -[facility] Work Phone: 07-02-2018 11:57-0400 Body weight 88.91 kg [facility] Work Phone: 07-02-2018 11:57-0400 BP Diastolic 74 mm[Hg] [facility] Work Phone: 07-02-2018 11:57-0400 BP Systolic 118 mm[Hg] [facility] Work Phone: 07-02-2018 11:57-0400 BSA (Body Surface Area) 1.85 m2 [facility] Work Phone: 07-02-2018 11:57-0400 Height 152.4 cm iEtan [facility] Work Phone: 07-02-2018 11:57-0400 Pulse (Heart Rate) 60 /min [facility] Work Phone: 09-19-2016 08:27-0400 BMI (Body Mass Index) 39.5 kg/m2 Esperanza Raymundo [facility] Work Phone: 09-19-2016 08:27-0400 BP Diastolic 72 mm[Hg] Esperanza Raymundo [facility] Work Phone: 09-19-2016 08:27-0400 BP Systolic 130 mm[Hg] Esperanza Raymundo [facility] Work Phone: 09-19-2016 08:27-0400 Height 149.86 cm Esperanza Raymundo [facility] Work Phone: 09-19-2016 08:27-0400 Pulse (Heart Rate) 56 /min Esperanza Raymundo [facility] Work Phone: 09-19-2016 08:27-0400 Respiratory Rate 20 /min Esperanza Raymundo [facility] Work Phone: 09-19-2016 08:27-0400 Weight 88.72 kg Esperanza Raymundo [facility] Work Phone: 07-11-2016 13:10-0400 BMI (Body Mass Index) 38.17 kg/m2 Esperanza Cespedes Work Phone: 07-11-2016 13:10-0400 BP Diastolic 52 mm[Hg] Esperanza [facility] Work Phone: 07-11-2016 13:10-0400 BP Systolic 126 mm[Hg] Esperanza [facility] Work Phone: 07-11-2016 13:10-0400 Height 149.86 cm Esperanza [facility] Work Phone: 07-11-2016 13:10-0400 Pulse (Heart Rate) 66 /min Esperanza [facility] Work Phone: 07-11-2016 13:10-0400 Pulse Oximetry 98 % Esperanza Aguirre [facility] [facility] Work Phone: 07-11-2016 13:10-0400 Respiratory Rate 18 /min Esperanza [facility] Work Phone: 07-11-2016 13:10-0400 Weight 85.73 kg Esperanza Aguirre [employer] [facility] Work Phone: Encounters Encounter Date Encounter Type Care Provider Facility Start: 11-28-2023 End: 11-28-2023 Office outpatient visit 15 minutes Eitan Price MD Work Phone: [facility] Comment on above: ASHD (arteriosclerot ic heart disease) (Primary Dx); Hyperlipidemia, unspecified hyperlipidemia type; Type 2 diabetes mellitus without complication, without long-term current use of insulin (Multi); Hypertension, unspecified type; Anemia, unspecified type; CKD (chronic kidney disease), stage II Start: 11-28-2023 End: 11-28-2023 ambulatory [facility] Start: 11-26-2023 End: 11-26-2023 ambulatory [facility] Start: 11-15-2023 ambulatory Eitan Price [facility] Start: 11-14-2023 ambulatory [facility] Start: 11-13-2023 End: 11-13-2023 Patient encounter procedure Mark Vazquez MD Work Phone: [facility] Comment on above: 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 (Primary Dx); Type 2 diabetes mellitus without complication, without long-term current use of insulin (HCC) Start: 11-13-2023 End: 11-14-2023 ambulatory MARK VAZQUEZ Facility:[facility] Start: 11-09-2023 End: 11-09-2023 ambulatory Eitan Price Facility:[facility] Start: 11-06-2023 End: 11-06-2023 ambulatory Eitan Price Facility:[facility] Start: 10-03-2023 End: 10-03-2023 Subsequent hospital visit by physician Lynne Holley X-Ray [facility] Comment on above: Chronic pain of both knees Start: 10-03-2023 End: 10-03-2023 Office outpatient visit 25 minutes Eitan Price MD Work Phone: [facility] Comment on above: Depression, unspecif ied depression type (Primary Dx); Chronic pain of both knees; Type 2 diabetes mellitus without complication, without long-term current use of insulin (Multi); Hyperlipidemia, unspecified hyperlipidemia type; Hypertension, unspecified type; ASHD (arteriosclerotic heart disease); Anxiety; HFrEF (heart failure with reduced ejection fraction) (Multi); COPD exacerbation (Multi); Paroxysmal atrial fibrillation (Multi) Start: 10-03-2023 End: 10-03-2023 ambulatory [facility] Start: 09-28-2023 End: 09-28-2023 ambulatory [facility] Start: 07-26-2023 End: 07-26-2023 ambulatory iEtan Price Facility:[facility] Start: 06-25-2023 End: 06-25-2023 Assay of hemosiderin, quant Eitan Price MD Work Phone: [facility] Work Phone: Start: 06-25-2023 End: 06-25-2023 Patient encounter procedure Eitan Price MD Work Phone: [facility] Comment on above: Routine general medi malvin examination at health care facility (Primary Dx); Medicare annual wellness visit, subsequent; Depression, unspecified depression type; ASHD (arteriosclerotic heart disease); Type 2 diabetes mellitus without complication, without long-term current use of insulin (Multi) Start: 06-25-2023 End: 06-25-2023 ambulatory [facility] Start: 06-25-2023 End: 06-25-2023 Encounter for general adult medical examination without abnormal findings [facility] Start: 06-19-2023 End: 06-19-2023 ambulatory [facility] Start: 12-26-2022 End: 12-26-2022 Office outpatient visit 15 minutes Erica Thompson [employer] Work Phone: [facility] Comment on above: SDH (subdural hemato ma) (CMS/HCC) (Primary Dx) Start: 12-26-2022 End: 12-26-2022 ambulatory [facility] Start: 12-20-2022 End: 12-20-2022 ambulatory [facility] Start: 12-13-2022 End: 12-13-2022 Office outpatient visit 25 minutes Eitan Price MD Work Phone: [facility] Comment on above: Subdural hemorrhage (CMS/HCC) (Primary Dx); Nonsustained ventricular tachycardia (CMS/HCC); Non-ST elevation (NSTEMI) myocardial infarction (CMS/HCC); Type 2 diabetes mellitus without complication, without long-term current use of insulin (CMS/HCC); Paroxysmal atrial fibrillation (CMS/HCC); Hypertension, unspecified type; Class 2 severe obesity due to excess calories with serious comorbidity and body mass index (BMI) of 37.0 to 37.9 in adult (CMS/HCC); Hyperlipidemia, unspecified hyperlipidemia type; Stage 3a chronic kidney disease (CMS/HCC); CKD (chronic kidney disease), stage II; ASHD (arteriosclerotic heart disease); Acute non-ST elevation myocardial infarction (NSTEMI) (CMS/HCC) Start: 12-11-2022 End: 12-11-2022 ambulatory EITAN PRICE [facility] Start: 12-07-2022 End: 12-07-[address] Eitan Price Work Phone: [facility] Work Phone: Start: 12-07-2022 End: 12-07-[address] Eitan Price Work Phone: [facility] Work Phone: Start: 12-06-2022 End: 12-06-[address] Eitan Price Work Phone: [facility] Work Phone: Start: 11-29-2022 End: 12-26-2022 ambulatory CORBIN BRYAN [facility] Start: 11-29-2022 End: 11-29-2022 Subsequent hospital visit by physician [facility] Comment on above: ACS (acute coronary syndrome) (CMS/HCC) Start: 11-29-2022 End: 12-02-2022 Evaluation and management of inpatient Corbin Bryan MD Work Phone: [facility] Comment on above: Subdural hemorrhage (CMS/HCC) (Primary Dx); Fall, initial encounter Start: 10-11-2022 End: 10-11-2022 Patient encounter procedure Hearing Aid [facility] Work Phone: [facility] (ENT) Comment on above: Sensorineural hearin g loss (SNHL) of both ears (Primary Dx) Start: 10-05-[address] Eitan goldman [facility] Facility:[id number] Start: 10-04-2022 End: 10-04-2022 Patient encounter procedure Hearing Aid Otol Ag [facility] Work Phone: [facility], [facility], [facility] Throat (ENT) Comment on above: Sensorineural hearin g loss (SNHL) of both ears (Primary Dx) Start: 08-31-2022 End: 08-31-2022 Patient encounter procedure Hearing Aid Otol Ag [place] Work Phone: [facility], [facility] Th[facility]at (ENT) Comment on above: ETD (Eustachian tube dysfunction), bilateral (Primary Dx); Sensorineural hearing loss (SNHL) of both ears Start: 06-02-2022 ambulatory Ms. Tori Humphrey Facility:[id number] Start: 06-02-2022 End: 06-02-2022 Office outpatient visit 25 minutes Tori Viramontes Mamadoupolina DIRECTOR CAREER SERVICES-[facility] Work Phone: [facility] Comment on above: Acute cough (Primary Dx); Upper respiratory tract infection, unspecified type; Anemia, unspecified type; Type 2 diabetes mellitus without complication, without long-term current use of insulin ([facility]); Iron deficiency; Vitamin B12 deficiency; Screening for thyroid disorder; Vitamin D deficiency; Hyperlipidemia, unspecified hyperlipidemia type Start: 02-03-2022 AUDIT Eitan Price [facility] Work Phone: Start: 01-11-2022 End: 01-12-2022 ambulatory Jose Reynaga Work Phone: [facility] Comment on above: Anemia, unspecified (Primary Dx) Start: 12-14-2021 Office outpatient vi sit 25 minutes Eitan Price [facility] Work Phone: Start: 12-12-2021 ambulatory JOSE REYNAGA Facil ity:[facility] Start: 12-12-2021 End: 12-12-2021 Subsequent hospital visit by physician Chair [facility] Work Phone: Infusion Center Comment on above: [facility] Infusion Start: 12-09-2021 Chart Update Eitan Price [facility] Phone: Start: 12-09-2021 ambulatory JOSE MARQUEZ RIO Facil ity:[facility] Start: 12-09-2021 End: 12-09-2021 Subsequent hospital visit by physician Chair [facility] Work Phone: Infusion Center Comment on above: [facility] Infusion Start: 12-07-2021 ambulatory JOSE MARQUEZ RIO Facil ity:[facility] Start: 12-07-2021 End: 12-07-2021 Subsequent hospital visit by physician Chair [facility] Work Phone: Infusion Center Comment on above: [facility] Infusion Start: 12-02-2021 AUDIT Eitan Abbasi [place]ee Work Phone: [facility] Work Phone: Start: 11-22-2021 Chart Update Eitan Abbasi [place] Work Phone: [facility] Work Phone: Start: 11-09-2021 Chart Update Eitan Abbasi [place] Work Phone: [facility] Work Phone: Start: 10-06-2021 Office outpatient vi sit 25 minutes Eitan Abbasi [place] Work Phone: [facility] Work Phone: Start: 10-03-2021 AUDIT Eitan Abbasi [place] Work Phone: [facility] Work Phone: Start: 09-22-2021 Office outpatient vi sit 25 minutes Eitan Abbasi [place] Work Phone: [facility] Work Phone: Start: 09-15-2021 Chart Update Eitan Abbasi [place]abee Work Phone: [facility] Work Phone: Start: 09-07-2021 Office outpatient vi sit 25 minutes Eitan W Mabee Work Phone: [facility] Work Phone: Start: 08-24-2021 AUDIT Eitan Price Work Phone: [facility] Work Phone: Start: 08-04-2021 Chart Update Eitan Price Work Phone: [facility] Work Phone: Start: 08-03-2021 Chart Update Eitan Price Work Phone: [facility] Work Phone: Start: 08-02-2021 Office outpatient vi sit 25 minutes Eitan Price Work Phone: [facility] Work Phone: Start: 08-02-2021 Patient encounter procedure Eitan Price Work Phone: [facility] Work Phone: Start: 08-01-2021 Chart Update Eitan Price Work Phone: [facility] Work Phone: Start: 12-17-2020 FUV, Provider: Eitan Price, Status: Pen, Time: 12:45 PM Eitan Price Work Phone: [facility] Work Phone: Start: 12-17-2020 Office outpatient vi sit 15 minutes Eitan Price Work Phone: [facility] Work Phone: Start: 12-17-2020 Patient encounter procedure Eitan Price Work Phone: [facility] Work Phone: Start: 12-15-2020 Chart Update Eitan Price Work Phone: [facility] Work Phone: Start: 11-30-2020 Office outpatient vi sit 25 minutes Eitan Price Work Phone: [facility] Work Phone: Start: 07-01-2020 Office outpatient vi sit 25 minutes Eitan Price Work Phone: [facility] Work Phone: Start: 07-29-2019 End: 07-29-2019 Subsequent hospital visit by physician Bozena [facility] Comment on above: Left lower quadrant pain [R10.32] Start: 07-02-2018 Patient encounter procedure Eitan Price [facility] Work Phone: Start: 01-01-2018 Patient encounter procedure Eitan Price [facility] Work Phone: Start: 07-04-2017 Patient encounter procedure Eitan Price [facility] Work Phone: Start: 12-12-2016 Patient encounter procedure Eitan Price [facility] Work Phone: Start: 08-16-2016 Patient encounter procedure Eitan Price [facility] Work Phone: Start: 07-14-2016 Patient encounter procedure Eitan Price [facility] Work Phone: Start: 07-13-2010 End: 07-13-2010 Patient encounter procedure Phill Rodarte Work Phone: [facility] Start: 07-13-2010 Results Only Phill Rodarte Work Phone: [facility] Start: 11-11-2008 End: 11-11-2008 Patient encounter procedure Phill Rodarte Work Phone: [facility] Start: 11-11-2008 Results Only Phill Rodarte Work Phone: [facility] Start: 10-23-2007 End: 10-23-2007 Patient encounter procedure Mckay Wang Work Phone: [facility] Start: 10-23-2007 Results Only Mckay hussein Work Phone: [facility] Patient encounter procedure Eitan Price [facility] Work Phone: Procedures Date Procedure Procedure Detail Performing Clinician Start: 11-28-2023 Follow-up visit Follow-up EITAN PRICE Start: 11-13-2023 Radiologic examinati on knee 3 views Mark Vazquez MD Work Phone: Start: 11-13-2023 LARGE JOINT INJECTION/ARTHROCENTESIS Mark Vazquez MD Work Phone: Start: 09-28-2023 Lipid 1996 panel - S ria or Plasma Ahu 1 Start: 06-26-2023 Ecg routine ecg w/le ast 12 lds w/i&r Eitan Price MD Work Phone: Start: 06-19-2023 CBC W Auto Different ial panel - Blood EITAN PRICE Start: 06-19-2023 Comprehensive metabo lic 1999 panel - Serum or Plasma EITAN PRICE Start: 06-19-2023 Ferritin [Mass/volum e] in Serum or Plasma EITAN PRICE Start: 06-19-2023 Hemoglobin A1c/Hemoglobin.total in Blood EITAN PRICE Start: 06-19-2023 IRON AND TIBC EITAN CARRIZALES Start: 06-19-2023 Lipid panel EITAN ADRIENNE E Start: 06-19-2023 Lipid 1996 panel - S ria or Plasma Eitan Price MD Work Phone: Start: 12-26-2022 ECG 12-LEAD EITAN DELEON E Start: 12-20-2022 CT HEAD WO IV CONTRAST EITAN PRICE Start: 12-11-2022 Comprehensive metabo lic 2000 panel - Serum or Plasma EITAN PRICE Start: 12-11-2022 Hemoglobin A1c/Hemoglobin.total in Blood EITAN PRICE Start: 12-11-2022 Lipid panel EITAN DELEON E Start: 12-11-2022 Lipid 1996 panel - S ria or Plasma Eitan Price MD Work Phone: Start: 12-02-2022 DISCHARGE PATIENT EITAN PRICE Start: 12-02-2022 ADULT DISCHARGE DIET SC CATHI ALBERT Start: 12-02-2022 DISCHARGE ACTIVITY SCOT T ALBERT Start: 12-02-2022 NOTIFY PROVIDER (DO NOT PROMPT FOR PARAMETERS) EITAN ALBERT Start: 12-02-2022 Basic metabolic 2000 panel - Serum or Plasma EITAN ALBERT Start: 12-02-2022 CBC panel - Blood by Automated count EITAN ALBERT Start: 12-02-2022 Basic metabolic pane l calcium total Viki L Yakubek DIRECTOR CAREER [employer] Work Phone: Start: 11-30-2022 ECG 12-LEAD EITAN Chowdary Start: 11-30-2022 Ecg routine ecg w/le ast 12 lds trcg only w/o i&r Historical Provider Work Phone: Start: 11-30-2022 IP CONSULT TO NUTRIFalcon Social [employer] EITAN ALBERT Start: 11-30-2022 Glucose [Mass/volume ] in Serum or Plasma EITAN ALBERT Start: 11-30-2022 Basic metabolic 2000 panel - Serum or Plasma EITAN ALBERT Start: 11-30-2022 CBC panel - Blood by Automated count EITAN LEEANNSOFIE Start: 11-30-2022 Glucose quantitative blood xcpt reagent strip Jose Parker MD Work Phone: Start: 11-30-2022 Basic metabolic pane l calcium total Sintia Hernandez PA-C Work Phone: Start: 11-30-2022 Glucose [Mass/volume ] in Serum or Plasma EITAN LEEANNSOFIE Start: 11-30-2022 HEIGHT AND WEIGHT EITAN LEEANNSOFIE Start: 11-30-2022 REASON FOR NO DVT PROPHYLAXIS - HOSPITAL ADMISSION - MEDICATIONS EITAN ALBERT Start: 11-30-2022 TELEMETRY MONITORING SC CATHI PRICE Start: 11-30-2022 Glucose quantitative blood xcpt reagent strip Jose Parker MD Work Phone: Start: 11-30-2022 CT HEAD WO IV CONTRAST EITAN BRADSHAWEE Start: 11-29-2022 Glucose [Mass/volume ] in Serum or Plasma EITAN BRADSHAWEE Start: 11-29-2022 Ct head/brain w/o contrast material Florence Borges DO Work Phone: Start: 11-29-2022 Glucose quantitative blood xcpt reagent strip Jose Parker MD Work Phone: Start: 11-29-2022 IP CONSULT TO CARDIOLOGY EITAN BRADSHAWEE Start: 11-29-2022 ADMIT TO INPATIENT [facility] Teena PRICE Start: 11-29-2022 Basic metabolic 2000 panel - Serum or Plasma EITAN BRADSHAWEE Start: 11-29-2022 CBC W Auto Different ial panel - Blood EITAN BRADSHAWEE Start: 11-29-2022 PROTIME-INR EITAN DELEON E Start: 11-29-2022 TYPE AND SCREEN EITAN ROCK Start: 11-29-2022 ED TO FLOOR BED REQUEST EITAN ALBERT Start: 11-29-2022 INSERT PERIPHERAL IV SC CATHI ALBERT Start: 11-29-2022 IP CONSULT TO NEUROSURGERY EITAN BRADSHAWEE Start: 11-29-2022 CT CERVICAL SPINE WO IV CONTRAST EITAN BRADSHAWEE Start: 11-29-2022 CT FACIAL BONES WO I V CONTRAST EITAN BRADSHAWEE Start: 11-29-2022 CT HEAD W/O CONTRAST TRAUMA PROTOCOL EITAN [facility] Start: 11-29-2022 Antibody screen rbc each serum technique Florence Borges DO Work Phone: Start: 11-29-2022 Basic metabolic pane l calcium total Corbin Bryan MD Work Phone: Start: 11-29-2022 Ct cervical spine w/ o contrast material Florence Joyce DO Work Phone: Start: 11-29-2022 Ct maxillofacial w/o contrast material Corbin Bryan MD Work Phone: Start: 08-31-2022 HEARING TEST/AUDIOGRAM Diane Cronin DO Work Phone: Start: 06-26-2022 Lipid 1996 panel - S ria or Plasma Corbin Bryan MD Work Phone: Start: 01-11-2022 Blood count complete auto&auto difrntl wbc Jose Reynaga Work Phone: Start: 08-01-2021 Lipid 1996 panel - S ria or Plasma Tori Cedillopolina DIRECTOR [employer] Work Phone: Start: 07-29-2019 Ct abdomen & pelvis w/o contrast material Tenisha Jackson Work Phone: Start: 07-02-2018 Albumin, Urine Spot Sco [facility] Start: 07-02-2018 Comprehensive metabo lic 2000 panel Eitan [facility] Start: 07-02-2018 Hemoglobin glycosyla len a1c Eitan [facility] – [place] Start: 07-02-2018 Lipid panel [facility]y Start: 09-19-2016 End: 09-19-2016 VLADISLAV Rondon MD Work Phone: Start: 09-19-2016 End: 09-19-2016 Follow Up Appt 9 months Oscar Rondon MD Work Phone: Start: 08-05-2016 End: 08-31-2016 *Hepatic Function Panel Oscar Rondon MD Work Phone: Start: 08-05-2016 End: 08-31-2016 CBC W Auto Differential panel - Blood Oscar Rondon MD Work Phone: Start: 08-05-2016 End: 08-31-2016 Lipid panel [AGGREGATE] Oscar Rondon MD Work Phone: Start: 08-05-2016 End: 09-19-2016 Referral to clinical nursing professor Oscar Rondon MD Work Phone: Start: 07-11-2016 End: 07-11-2016 VLADISLAV Rondon MD Work Phone: Start: 07-11-2016 End: 07-11-2016 Follow Up Appt 2 months Oscar Rondon MD Work Phone: Start: 07-10-2016 History of placement of stent for coronary artery disease Status post coronary artery stent placement Tori Cedillopolina DIRECTOR [employer] Work Phone: Start: 07-10-2016 Placement of stent i n coronary artery Status post cardiac stent placement Harraymundo Singhis Start: 06-23-2016 History of placement of stent for coronary artery disease History of coronary artery stent placement Tori Roblero DIRECTOR [employer] Work Phone: Start: 07-13-2010 CONVERTED SURGICAL PATHOLOGY Phill Rodarte Work Phone: Start: 11-11-2008 CONVERTED SURGICAL PATHOLOGY Phill Rodarte Work Phone: Start: 10-23-2007 CONVERTED SURGICAL PATHOLOGY Mckay Wang Work Phone: Appendectomy Eitan Price History of Cath Sten t Placement Eitan Price Hysterectomy Eitan Price Screening colonoscopy Eitan Price Plan of Treatment Date Care Activity Detail Author Start: 11-29-2032 DTaP/Tdap/Td Vaccine s (2 - Td or Tdap) DTaP/Tdap/Td Vaccines (2 - Td or Tdap) [facility] Start: 11-29-2032 Urine microalbumin profile DTaP,Tdap,Td Vaccine (2 - Td or Tdap) [facility] Start: 09-27-2026 Diabetes Screening Diabetes Screenin g [facility] Start: 06-26-2025 DIABETES SCREEN DIABETES SCREEN [facility] Start: 11-25-2024 Creatinine measurement Creatinine Le edmundo [facility] Start: 11-25-2024 Potassium measurement Potassium Leve l [facility] Start: 09-27-2024 Lipid panel Lipid Panel [facility] Start: 07-10-2024 End: 07-10-2024 Patient encounter procedure 07/10/2024 11:00 AM EDT Office Visit [facility] [address] [place] [phone] Eitan Price MD [address] [facility], [address] [place] [address] [facility] Start: 06-25-2024 Medicare Annual Well ness Visit Medicare Annual Wellness Visit (AWV) [facility] Start: 06-18-2024 Lipid panel Lipid Panel [facility] Start: 02-26-2024 Hemoglobin A1c measurement Diabetes: Hemoglobin A1C [facility] Start: 12-29-2023 Hemoglobin A1c measurement Diabetes: Hemoglobin A1C [facility] Start: 12-12-2023 Lipid panel Lipid Panel [facility] Start: 12-08-2023 Echocardiography Echocardiogram [facility] Start: 11-28-2023 End: 11-28-2023 Patient encounter procedure 11/28/2023 10:00 AM EDT Office Visit [facility] [address] [place] [phone] Eitan Price MD [address] [facility], [address] [place] [address] [facility] Start: 11-25-2023 End: 10-02-2024 Comprehensive metabolic 2000 panel - Serum or Plasma Comprehensive metabolic panel Lab Routine Type 2 diabetes mellitus without complication, without long-term current use of insulin (Multi) Expected: 11/25/2023 (Approximate), Expires: 10/02/2024 [facility] Service Area Work Phone: Comment on above: Expected: 11/25/2023 (Approximate), Expires: 10/02/2024 Start: 11-25-2023 End: 10-02-2024 Hemoglobin A1c/Hemoglobin.total in Blood Hemoglobin A1C Lab Routine Type 2 diabetes mellitus without complication, without long-term current use of insulin (Multi) Expected: 11/25/2023 (Approximate), Expires: 10/02/2024 [facility] Work Phone: Comment on above: Expected: 11/25/2023 (Approximate), Expires: 10/02/2024 Start: 10-07-2023 Covid-19 Vaccine ( season) Covid-19 Vaccine ( season) [facility] Start: 10-07-2023 Influenza vaccination Influenza Vacc ine (#1) [facility] Start: 10-03-2023 End: 10-03-2023 Patient encounter procedure 10/03/2023 3:30 PM EDT Office Visit [facility] [address] [place] [phone] Eitan Price MD [address] [facility] [place] [address] [facility] Start: 10-03-2023 End: 10-02-2024 XR Knee - bilateral AP W standing [facility] Area Work Phone: Comment on above: Once for 1 Occurrenc es starting 10/03/2023 until 10/03/2023 Expected: 10/03/2023 , Expires: 10/02/2024 Start: 09-25-2023 End: 06-24-2024 CBC W Auto Differential panel - Blood CBC and Auto Differential Lab Routine ASHD (arteriosclerotic heart disease) Expected: 09/25/2023 (Approximate), Expires: 06/24/2024 [facility] Work Phone: Comment on above: Expected: 09/25/2023 (Approximate), Expires: 06/24/2024 Start: 09-25-2023 End: 06-24-2024 Comprehensive metabolic 2000 panel - Serum or Plasma Comprehensive metabolic panel Lab Routine ASHD (arteriosclerotic heart disease) Expected: 09/25/2023 (Approximate), Expires: 06/24/2024 [facility] Work Phone: Comment on above: Expected: 09/25/2023 (Approximate), Expires: 06/24/2024 Start: 09-25-2023 End: 06-24-2024 Hemoglobin A1c/Hemoglobin.total in Blood Hemoglobin A1C Lab Routine Type 2 diabetes mellitus without complication, without long-term current use of insulin (Multi) Expected: 09/25/2023 (Approximate), Expires: 06/24/2024 [facility] Work Phone: Comment on above: Expected: 09/25/2023 (Approximate), Expires: 06/24/2024 Start: 09-25-2023 End: 06-24-2024 Lipid 1996 panel - Serum or Plasma Lipid Panel Lab Routine ASHD (arteriosclerotic heart disease) Expected: 09/25/2023 (Approximate), Expires: 06/24/2024 [facility] Work Phone: Comment on above: Expected: 09/25/2023 (Approximate), Expires: 06/24/2024 Start: 09-19-2023 Hemoglobin A1c measurement Diabetes: Hemoglobin A1C [facility] Start: 06-30-2023 Medicare Annual Well ness Visit Medicare Annual Wellness Visit (AWV) [facility] Start: 06-27-2023 Lipid panel Lipid Panel [facility] Start: 06-25-2023 End: 06-25-2023 Patient encounter procedure 06/25/2023 2:30 PM EDT Office Visit [facility] [address] [place] [phone] Eitan Price MD [address] [facility] [place] [address] [facility] Start: 04-25-2023 COVID-19 Vaccine ( season) COVID-19 Vaccine () [facility] Start: 04-23-2023 Urine screening for protein Diabetes: Urine Protein Screening [facility] Start: 03-13-2023 Hemoglobin A1c measurement Diabetes: Hemoglobin A1C [facility] Start: 02-19-2023 COVID-19 Vaccine (4 - Moderna series) COVID-19 Vaccine (4 - Moderna series) [facility] Start: 02-05-2023 Advance Directive Discussion Advance Directive Discussion [facility] Start: 12-26-2022 End: 12-26-2022 Patient encounter procedure 12/26/2022 10:30 AM EST Office Visit [place] [facility] [address] [place] [phone] Erica Thompson, DIRECTOR [employer] [address] [place] [address] [facility] Start: 12-20-2022 End: 12-20-2022 Professional / ancillary services management 12/20/2022 10:30 AM EST Ancillary Procedure [facility] [address] [facility] [address] [place] [phone] [facility] Start: 12-13-2022 End: 12-13-2022 Patient encounter procedure 12/13/2022 3:00 PM EST Office Visit [facility] [address] [place] [phone] Eitan Price MD [address] [facility] [place] [address] [facility] Start: 10-06-2022 Influenza [facility] Start: 09-26-2022 Hemoglobin A1c measurement Diabetes: Hemoglobin A1C [facility] Start: 08-03-2022 Medicare Annual Well ness Visit Medicare Annual Wellness Visit (AWV) [facility] Start: 08-01-2022 Lipid panel Lipid Panel [facility] Start: 07-28-2022 DIABETES SCREEN DIABETES SCREEN [facility] Start: 07-24-2022 Hemoglobin A1c measurement Diabetes: Hemoglobin A1C [facility] Start: 06-28-2022 End: 06-28-2022 Patient encounter procedure 06/28/2022 3:00 PM EDT Office Visit [facility] [address] [place] [phone] Eitan Price MD [address] [facility] [place] [address] [facility] Start: 06-02-2022 End: 06-03-2023 Calcitriol [Mass/volume] in Serum or Plasma Vitamin D 1,25 Dihydroxy Lab Routine Vitamin D deficiency Expected: 06/02/2022 (Approximate), Expires: 06/03/2023 [facility] Work Phone: Comment on above: Expected: 06/02/2022 (Approximate), Expires: 06/03/2023 Start: 06-02-2022 End: 06-03-2023 CBC W Auto Differential panel - Blood CBC and Auto Differential Lab Routine Iron deficiency Expected: 06/02/2022 (Approximate), Expires: 06/03/2023 [facility] Work Phone: Comment on above: Expected: 06/02/2022 (Approximate), Expires: 06/03/2023 Start: 06-02-2022 End: 06-03-2023 Cobalamin (Vitamin B12) [Mass/volume] in Serum or Plasma Vitamin B12 Lab Routine Vitamin B12 deficiency Expected: 06/02/2022 (Approximate), Expires: 06/03/2023 [facility] Work Phone: Comment on above: Expected: 06/02/2022 (Approximate), Expires: 06/03/2023 Start: 06-02-2022 End: 06-03-2023 Comprehensive metabolic 2000 panel - Serum or Plasma Comprehensive Metabolic Panel Lab Routine Anemia, unspecified type Expected: 06/02/2022 (Approximate), Expires: 06/03/2023 [facility] Work Phone: Comment on above: Expected: 06/02/2022 (Approximate), Expires: 06/03/2023 Start: 06-02-2022 End: 06-03-2023 Hemoglobin A1c/Hemoglobin.total in Blood Hemoglobin A1C Lab Routine Type 2 diabetes mellitus without complication, without long-term current use of insulin ([facility]) Expected: 06/02/2022 (Approximate), Expires: 06/03/2023 [facility] Work Phone: Comment on above: Expected: 06/02/2022 (Approximate), Expires: 06/03/2023 Start: 06-02-2022 End: 06-03-2023 Iron and Iron binding capacity panel - Serum or Plasma Iron and TIBC Lab Routine Anemia, unspecified type Iron deficiency Expected: 06/02/2022 (Approximate), Expires: 06/03/2023 [facility] Work Phone: Comment on above: Expected: 06/02/2022 (Approximate), Expires: 06/03/2023 Start: 06-02-2022 End: 06-03-2023 Lipid 1996 panel - Serum or Plasma Lipid Panel Lab Routine Hyperlipidemia, unspecified hyperlipidemia type Expected: 06/02/2022 (Approximate), Expires: 06/03/2023 [facility] Work Phone: Comment on above: Expected: 06/02/2022 (Approximate), Expires: 06/03/2023 Start: 06-02-2022 End: 06-03-2023 TSH with reflex to Free T4 if abnormal TSH with reflex to Free T4 if abnormal Lab Routine Screening for thyroid disorder Expected: 06/02/2022 (Approximate), Expires: 06/03/2023 [facility] Work Phone: Comment on above: Expected: 06/02/2022 (Approximate), Expires: 06/03/2023 Start: 06-02-2022 End: 06-03-2023 XR Chest 2 Views [facility] Service Area Work Phone: Comment on above: Expected: 06/02/2022 , Expires: 06/03/2023 Start: 04-04-2022 COVID-19 VACCINE (5 - Moderna series) COVID-19 VACCINE (5 - Moderna series) [facility] Start: 02-05-2022 ADVANCE DIRECTIVE DISCUSSION ADVANCE DIRECTIVE DISCUSSION [facility] Start: 02-05-2022 DEPRESSION ASSESSMENT DEPRESSION ASS ESSMENT [facility] Start: 01-27-2022 COVID-19 Vaccine (4 - Booster for Moderna series) COVID-19 Vaccine (4 - Booster for Moderna series) [facility] Start: 01-27-2022 COVID-19 Vaccine (4 - Moderna series) COVID-19 Vaccine (4 - Moderna series) [facility] Start: 12-14-2021 FUV, Provider: Mabee,Eitan, Status: Pen, Time: 8:30 AM FUV, Provider: Eitan Price, Status: Pen, Time: 8:30 AM [facility] Work Phone: Start: 11-09-2021 FUV, Provider: Eitan Price, Status: Pen, Time: 3:30 PM FUV, Provider: Eitan Price, Status: Pen, Time: 3:30 PM [facility] Work Phone: Start: 10-06-2021 FUV, Provider: Eitan Price, Status: Pen, Time: 4:00 PM FUV, Provider: Eitan Price, Status: Pen, Time: 4:00 PM [facility] Work Phone: Start: 10-06-2021 Influenza vaccination INFLUENZA (#1) [facility] Start: 09-22-2021 FUV, Provider: Eitan Price, Status: Pen, Time: 2:00 PM FUV, Provider: Eitan Price, Status: Pen, Time: 2:00 PM [facility] Work Phone: Start: 09-07-2021 FUV, Provider: Eitan Price, Status: Pen, Time: 2:00 PM FUV, Provider: Eitan Price, Status: Pen, Time: 2:00 PM [facility] Work Phone: Start: 06-20-2021 FUV, Provider: Eitan Price, Status: Pen, Time: 11:00 AM FUV, Provider: Eitan Price, Status: Pen, Time: 11:00 AM [facility] Work Phone: Start: 02-05-2021 ADVANCE DIRECTIVE DISCUSSION ADVANCE DIRECTIVE DISCUSSION [facility] Start: 02-05-2021 DEPRESSION ASSESSMENT DEPRESSION ASS ESSMENT [facility] Start: 12-17-2020 FUV, Provider: Eitan Price, Status: Pen, Time: 12:45 PM FUV, Provider: Eitan Price, Status: Pen, Time: 12:45 PM [facility] Work Phone: Start: 11-30-2020 FUV, Provider: Eitan Price, Status: Pen, Time: 2:00 PM FUV, Provider: Eitan Price, Status: Pen, Time: 2:00 PM [facility] Work Phone: Start: 10-07-2019 [facility] Start: 12-06-2018 Comprehensive metabo lic 2000 panel [facility] Work Phone: Start: 12-06-2018 HbA1c (Bld) [Mass fraction] Hemoglobin A1C [facility] Work Phone: Start: 12-06-2018 Lipid panel Lipid Panel [facility] Work Phone: Start: 07-05-2017 End: 07-05-2017 Appointment [facility] Work Phone: Start: 03-05-2017 End: 09-01-2016 *Hepatic Function Panel *Hepatic Function Panel [facility] Work Phone: Start: 03-05-2017 End: 09-01-2016 Lipid panel [AGGREGATE] *Lipid Profile CC PCP [facility] Work Phone: Start: 09-19-2016 End: 09-19-2016 Appointment Appointment [facility] Work Phone: Start: 09-19-2016 End: 09-19-2016 Cardiac Rehab [facility] Work Phone: Start: 09-19-2016 End: 09-19-2016 DJN DJN [facility] Work Phone: Start: 09-19-2016 End: 09-19-2016 Follow Up Appt 9 months Follow Up Appt 9 months [facility] Work Phone: Start: 08-05-2016 End: 08-31-2016 *Hepatic Function Panel *Hepatic Function Panel [facility] Work Phone: Start: 08-05-2016 End: 07-12-2016 Cardiac Rehab Card[facility] [address] [place], [address] [facility] Work Phone: Start: 08-05-2016 End: 08-31-2016 CBC W Auto Differential panel - Blood *CBC without Diff [facility] Work Phone: Start: 08-05-2016 End: 08-31-2016 Lipid panel [AGGREGATE] *Lipid Profile CC PCP [facility] Work Phone: Start: 07-11-2016 End: 07-11-2016 Appointment Appointment [facility] Phone: Start: 07-11-2016 End: 07-11-2016 DJN VLADISLAV [facility] Phone: Start: 07-11-2016 End: 07-11-2016 Follow Up Appt 2 months Follow Up Appt 2 months [facility] Work Phone: Start: 12-20-2010 RSV High Risk: (Elde rly (60+) or Population) (1 - 1-dose 75+ series) RSV High Risk: (Elderly (60+) or Population) (1 - 1-dose 75+ series) [facility] Start: 12-20-2010 RSV Vaccine (1 - 1-d ose 75+ series) RSV Vaccine (1 - 1-dose 75+ series) [facility] Start: 12-20-2000 ADVANCE DIRECTIVE DISCUSSION ADVANCE DIRECTIVE DISCUSSION [facility] Start: 12-20-2000 BONE DENSITY BONE DENSITY [facility] Start: 12-20-2000 PNEUMOCOCCAL: 65+ (1 - PCV) PNEUMOCOCCAL: 65+ (1 - PCV) [facility] Start: 12-20-2000 PNEUMOVAX AGE 65 AND OVER WITH 5YR LOOKBACK (#1) PNEUMOVAX AGE 65 AND OVER WITH 5YR LOOKBACK (#1) [facility] Start: 12-20-2000 Screening for osteoporosis Bone Density Screening [facility] Start: 1995 RSV patient s and/or patients aged 60+ years (1 - 1-dose 60+ series) RSV patients and/or patients aged 60+ years (1 - 1-dose 60+ series) [facility] Start: 12-20-1985 SHINGRIX VACCINE (1 of 2) MONTEMAYOR GRIX VACCINE (1 of 2) [facility] Start: 12-20-1985 Zoster Vaccines (1 of 2) Zoste r Vaccines (1 of 2) [facility] Start: 12-20-1980 DIABETES SCREEN DIABETES SCREEN [facility] Start: 12-20-1957 DTaP/Tdap/Td Vaccine s (1 - Tdap) DTaP/Tdap/Td Vaccines (1 - Tdap) [facility] Start: 12-20-1954 DTaP/Tdap/Td Vaccine s (1 - Tdap) DTaP/Tdap/Td Vaccines (1 - Tdap) [facility] Start: 12-20-1954 Urine microalbumin profile DTAP,TDAP,TD (1 - Tdap) [facility] Start: 12-20-1954 Urine screening for protein Diabetes: Urine Protein Screening [facility] Start: 12-20-1953 Anxiety Screening Anxiety Screening [facility] Start: 12-20-1953 Depression Screening Depression Scre ening [facility] Start: 12-20-1945 Diabetic foot examination Diabetes: Foot Exam [facility] Start: 12-20-1945 Glaucoma screening Diabetes: R etinopathy Screening [facility] Start: 12-20-1945 Ophthalmic examinati on and evaluation Diabetes: Retinopathy Screening [facility] Start: 12-20-1945 Preventive dental service Diabetes: Dental Exam [facility] Start: 1935 Hemoglobin A1c measurement Diabetes: Hemoglobin A1C [facility] Start: 1935 Hepatitis B Vaccines (1 of 3 - 3-dose series) Hepatitis B Vaccines (1 of 3 - 3-dose series) [facility] Start: 1935 Lipid panel Lipid Panel [facility] Start: 1935 Medicare Annual Well ness Visit Medicare Annual Wellness Visit (AWV) [facility] Start: 1935 Screening for osteoporosis Bone Density Scan [facility] End: 12-26-2022 ECG 12 lead [facility] Service Area Work Phone: Comment on above: Once for 1 Occurrenc es starting 12/26/2022 until 12/26/2022 Patient Education HYPERLIPIDEMIA [facility] Work Phone: [facility] NEGATED: Highlighted row has been ruled out! Planned Goals not documented [facility]- Work Phone: Immunizations Immunization Date Immunization Notes Care Provider Mariana ryan 12-02-2022 Flu vaccine, quadrivalent, high-dose, preservative free, age 65y+ (FLUZONE) Corbin Bryan MD Work Phone: [facility] 12-02-2022 influenza virus vacc ine, unspecified formulation Corbin Bryan MD Work Phone: [facility] Work Phone: 11-29-2022 tetanus toxoid, redu karol diphtheria toxoid, and acellular pertussis vaccine, adsorbed Corbin Bryan MD Work Phone: [facility] 12-12-2021 Fluzone High-Dose Quadrivalent 0.7 ML Intramuscular Suspension Prefilled Syringe Eitan Price Work Phone: [facility] Work Phone: 12-02-2021 Moderna COVID-19 Biv al Booster 50 MCG/0.5ML Intramuscular Suspension Eitan Price Work Phone: [facility] Work Phone: 12-15-2020 Fluzone High-Dose Quadrivalent 0.7 ML Intramuscular Suspension Prefilled Syringe Eitan Price Work Phone: [facility] Phone: 11-29-2020 Moderna COVID-19 Vac cine 100 MCG/0.5ML Intramuscular Suspension Eitan Abbasi Mabsofie Work Phone: [facility] Work Phone: 04-01-2020 Moderna COVID-19 Vac cine 100 MCG/0.5ML Intramuscular Suspension Eitan Price Work Phone: [facility] Work Phone: 03-04-2020 Moderna COVID-19 Vac cine 100 MCG/0.5ML Intramuscular Suspension Eitan Price Work Phone: [facility] Work Phone: 11-12-2019 Fluad Quadrivalent 0 .5 ML Intramuscular Prefilled Syringe Eitan Price Work Phone: [facility] Work Phone: 12-23-2018 pneumococcal polysaccharide vaccine, 23 valent Tori Roblero DIRECTOR [employer] Work Phone: [facility] Work Phone: 12-25-2017 influenza virus vacc ine, unspecified formulation Eitan Price Work Phone: [facility] Work Phone: Comment on above: Series: 12-25-2017 influenza, seasonal, injectable Eitan Price [facility] Work Phone: 12-07-[address] Eitan Bradshawsofie Work Phone: [facility] 12-07-2015 influenza, seasonal, injectable, preservative free Tori Roblero DIRECTOR [employer] Work Phone: [facility] Work Phone: 11-06-2015 pneumococcal conjuga te vaccine, 13 valent Eitan Price [facility] Work Phone: Comment on above: Series: 12-30-2012 influenza, seasonal, injectable Eitan Albert [facility] Internal [facility] Work Phone: Comment on above: Series: 01-01-2012 influenza, seasonal, injectable [facility] Work Phone: Comment on above: Series: Payers Date Payer Category Payer Self-pay [id number] 2022 Medicare (Managed Care) [facility] MEDICARE [id number] 2018 Medicare UHC MEDICARE UHC MEDICARE ADVANTAGE PPO [id number] 2018-Present PPO [id number] 2018 Medicare [id number] 2018 Medicare [id number] 2011 [facility] [id number] 2011 Unknown 2011 Unknown [id number] 1935 Unknown [id number] [id number] 9.2.356 1935 Unknown [id number] [id number] 9.2.356 1935 Unknown [id number] [id number] 9.2.1242 1935 Unknown [id number] 2.16.840.1.068625.3.57 9.2.1247 1935 Unknown [id number] 2.16.840.1.481481.3.57 9.2.1247 1935 Unknown [id number] 2.16.840.1.938329.3.57 9.2.1247 1935 Unknown [id number] 2.16.840.1.721785.3.57 9.2.1245 1935 Unknown [id number] 2.16.840.1.059999.3.57 9.2.1245 1935 Unknown [id number] 2.16.840.1.287461.3.57 9.2.1245 1935 Unknown [id number] 2.16.840.1.846858.3.57 9.2.1245 1935 Unknown [id number] 2.16.840.1.464477.3.57 9.2.1245 1935 Unknown [id number] 2.16.840.1.729531.3.57 9.2.1244 1935 Unknown [id number] 2.16.840.1.963093.3.57 9.2.1244 1935 Unknown [id number] 2.16.840.1.700134.3.57 9.2.1244 Medicare MEDICARE PART A B [id number] Private Health Insurance [facility] [id number] Private Health Insurance [facility] [id number] Unknown [id number] [id number] 9.2.462 Unknown [id number] 2.16.840.1.711835.3.57 9.2.462 Unknown [id number] 2.16.840.1.367120.3.57 9.2.462 Unknown [id number] Unknown [id number] Unknown [id number] Social History Date Type Detail Facility Tobacco smoking status NHIS Unknown if [facility] smoked [facility] Start: 1935 Sex Assigned At Not on file [facility] Start: 01-01-2022 End: 11-28-2023 Exposure to SARS-CoV-2 (event) Not sure [facility] Start: 06-02-2022 End: 11-30-2022 Never a smoker Never a smoker [facility] Start: 12-06-2022 Tobacco smoking status MDIS Tobacco smoking consumption unknown [facility] Start: 06-01-2022 End: 11-13-2023 Tobacco smoking status NHIS Never smoked tobacco [facility] Start: 06-01-2022 End: 11-13-2023 Tobacco use and exposure Smokeless tobacco non-user [facility] Work Phone: Start: 06-02-2022 End: 10-03-2023 Alcohol intake Ex-drinker (finding) [facility] Work Phone: Start: 06-02-2022 End: 11-30-2022 Tobacco use panel [facility] National Score (1-100), lower number is lower risk 52 [facility] How often to you hav e a drink containing alcohol? Never [facility] In the past 12 months, was there a time when you were not able to pay the mortgage or rent on time? No [facility] Work Phone: Start: 06-29-2016 None [facility] Start: 06-29-2016 Spouse/ Signif icant Other [facility] Start: 06-29-2016 Non-smoker [facility] Start: 1935 Sex Assigned At Female [facility] (I/We) worried whether (my/our) food would run out before (I/we) got money to buy more. Never true [facility] Work Phone: Start: 12-04-2015 Alcohol intake Current non-dr sandal parts assembler of alcohol (finding) [facility] NEGATED: Highlighted row - - [facility] Work Phone: Functional Status Date Assessment Result Facility NEGATED: Highlighted row Functional performance Functional status health issues are not documented Disease [facility] Work Phone: Mental Status Date Assessment Result Facility NEGATED: Highlighted row Cognitive function [Interpretation] Cognitive status health issues are not documented Disease [facility] Work Phone: Clinical Notes 06-23-2016 to 11-28-2023 Eitan Price MD - 11/28/2023 10:00 AM Donya Anderson LPN - 11/13/2023 9:46 AM Mark Mcintosh MD - 11/13/2023 9:43 AM Maxx Price MD - 10/03/2023 3:30 PM EDTPatient Instructions Note Date & Type Note Facility 11-28-2023 History of Present illness Narrative Subjective Patient ID: Ingrid Donald is a 87 y.o. female who presents for Follow-up. HPI fu ashd, anemia, ckd, dm, hyperlipidemia, htn, tee/dep Doing pretty well w/o worse dep/anx. No angina or bleeding Review of Systems As above Objective BP 120/70 Pulse 55 Ht 1.499 m (4' 11) Wt 83.5 kg (184 lb) SpO2 98% BMI 37.16 kg/m Physical Exam Gen nad, affect wnl Heentt eomfg, face symmetric, ncat Neck w/o la, tm, bruit Lungs clear Cv rrr nl s1, s2 Ext w/o edema Neuro grossly nonfocal Skin good color Labs reviewed Assessment/Plan Diagnoses and all orders for this visit: ASHD (arteriosclerotic heart disease) Hyperlipidemia, unspecified hyperlipidemia type Type 2 diabetes mellitus without complication, without long-term current use of insulin (Multi) Hypertension, unspecified type Anemia, unspecified type CKD (chronic kidney disease), stage II Fu specialists Fu 6 mos w/ labs documented in this encounter [facility] Work Phone: 11-13-2023 Note HNO ID: [id number] Author: DONYA FARIA LPN Service: ? Author Type: LICENSED NURSE Type: Progress Notes Filed: 11/13/2023 10:41 Note Text: Injection prepared per order for Dr. Gibbs and handed directly to him. Injection site: asaf knees Donya Faria LPN [facility] 11-13-2023 History of Present illness Narrative Injection prepared per order for Dr. Gibsb and handed directly to him. Injection site: asaf knees Donya Faria LPN Associated Order(s): Large Joint Arthro/Inj: bilateral knee joints Chief Complaint: Bilateral knee pain Consuting Physician: History: Ingrid is a 87 year old female who presents with a longstanding history of bilateral knee pain. She denies any traumatic history but more of an insidious onset of pain. The pain is located along the patellofemoral region of the knee. The pain is non-radiating and intermittent in nature. The pain is worse in the morning and after activities such as prolonged ambulation and standing. The pain is typically dull but can be sharp at times. she reports occasional night pain. Stiffness is noted especially in the am and with prolonged sitting activities. Clicking and popping are noted but no locking or catching. she has tried Tylenol with minimal success. No pain in the hip, back or groin region. No numbness and tingling down the extremity. No fevers, chills, night sweats or other constitutional symptoms. Occasional swelling is experienced. There are no symptoms of infection or deep venous thrombosis. She quantitates the pain as 5/10. She reports that her ADL s have been affected adversely secondary to her knee pain. Review Of Systems: GENERAL: Well developed, well nourished. No acute distress PAIN: Negative for pain, history of chronic pain or current treatment for chronic pain conditions CARDIOVASCULAR: Negative for chest pain, leg swelling and palpations. MSK: Negative for joint pain, swelling, back pain, muscle pain. SKIN: Negative for lesions, rash, itching, metal sensitivity NEURO: Negative for seizure, trauma, numbness/tingling of extremities. ENDOCRINE: Diabetes Type 2 HEMATOLOGY: Negative for excessive bleeding, clots, bleeding disorders. Physical Examination: Ingrid is alert and oriented and in no acute distress. She exhibits an antalgic gait. She has evidence of (varus/ valgus) malalignment of her bilateral knee(s). Skin is intact bilaterally. The patient lacks 5 degrees of full extension of the bilateral knee(s) and lacks 5-7 degrees of flexion as well. She has evidence of a Small) effusion. She has evidence of patellofemoral crepitation with ROM. There is some pain with palpation along the medial and lateral facets of the patella. She has pain along the medial and lateral joint lines. A negative Jose Alfredo s is noted. Negative anterior and posterior drawers are seen. She has good stability with varus and valgus stress at 0 and 30 degrees. No increase in ER is seen at 30 or 90 degrees. Full ROM of both hips and ankles are noted. She has 5/5 motor strength with downgoing Babinski s and symmetric reflexes. Good pulses and cap refill are seen. Gross sensation intact. X-ray Evaluation: Standing 45 degree weight bearing, merchant and lateral radiographs of the bilateral knee (s) were ordered, taken and reviewed today. The radiographs show Varus malalignment and severe joint space narrowing along the patellofemoral joint lines with osteophytic spurring, and sclerosis. The patellae are located in the trochlea but also show signs of sclerosis, and joint space narrowing. No signs of fracture, avulsion or dislocation. No overt signs of bony tumor. Assessment: Primary osteoarthritis of both knees (primary encounter diagnosis) Plan: The patient understands the diagnosis, treatment options and indications for both operative and non-operative, their associated risks, complications, benefits, outcomes, rehabilitation and failures. It was decided to proceed with a nonoperative treatment option consisting of NSAID s and a physical therapy program emphasizing quadricep strengthening, stretching and ROM. Injection performed as detailed below: Large Joint Arthro/Inj: bilateral knee joints 11/13/2023 9:47 AM The procedure site was prepped in the usual sterile fashion. Site: bilateral knee joints Medications (Right): 40 mg triamcinolone acetonide 40 mg/mL Medications (Left): 80 mg triamcinolone acetonide 40 mg/mL Anesthetics (Right): 5 mL lidocaine (PF) 10 mg/mL (1 %) Anesthetics (Left): 5 mL lidocaine (PF) 10 mg/mL (1 %) Outcome: Tolerated well, no immediate complications Post-injection instructions were reviewed with the patient and the patient voiced understanding of these instructions. Tylenol was recommended for pain control if tolerated. To be used as directed on the bottle. He will return for follow-up in prn basis. Mark Vazquez MD documented in this encounter [facility] 11-13-2023 Note HNO ID: [id number] Author: MARK VAZQUEZ MD Service: ? Author Type: Physician Type: Progress Notes Filed: 11/13/2023 10:41 Note Text: Chief Complaint: Bilateral knee pain Consuting Physician: History: Ingrid is a 87 year old female who presents with a longstanding history of bilateral knee pain. She denies any traumatic history but more of an insidious onset of pain. The pain is located along the patellofemoral region of the knee. The pain is non-radiating and intermittent in nature. The pain is worse in the morning and after activities such as prolonged ambulation and standing. The pain is typically dull but can be sharp at times. she reports occasional night pain. Stiffness is noted especially in the am and with prolonged sitting activities. Clicking and popping are noted but no locking or catching. she has tried Tylenol with minimal success. No pain in the hip, back or groin region. No numbness and tingling down the extremity. No fevers, chills,night sweats or other constitutional symptoms. Occasional swelling is experienced. There are no symptoms of infection or deep venous thrombosis. She quantitates the pain as 5/10. She reports that her ADL?s have been affected adversely secondary to her knee pain. Review Of Systems: GENERAL: Well developed, well nourished. No acute distress PAIN: Negative for pain, history of chronic pain or current treatment for chronic pain conditions CARDIOVASCULAR: Negative for chest pain, leg swelling and palpations. MSK: Negative for joint pain, swelling, back pain, muscle pain. SKIN: Negative for lesions, rash, itching, metal sensitivity NEURO: Negative for seizure, trauma, numbness/tingling of extremities. ENDOCRINE: Diabetes Type 2 HEMATOLOGY: Negative for excessive bleeding, clots, bleeding disorders. Physical Examination: Ingrid is alert and oriented and in no acute distress. She exhibits an antalgic gait. She has evidence of (varus/ valgus) malalignment of her bilateral knee(s). Skin is intact bilaterally. The patient lacks 5 degrees of full extension of the bilateral knee(s) and lacks 5-7 degrees of flexion as well. She has evidence of a Small) effusion. She has evidence of patellofemoral crepitation with ROM. There is some pain with palpation along the medial and lateral facets of the patella. She has pain along the medial and lateral joint lines. A negative Jose Alfredo?s is noted. Negative anterior and posterior drawers are seen. She has good stability with varus and valgus stress at 0 and 30 degrees. No increase in ER is seen at 30 or 90 degrees. Full ROM of both hips and ankles are noted. She has 5/5 motor strength with downgoing Babinski?s and symmetric reflexes. Good pulses and cap refill are seen. Gross sensation intact. X-ray Evaluation: Standing 45 degree weight bearing, merchant and lateral radiographs of the bilateral knee (s) were ordered, taken and reviewed today. The radiographs show Varus malalignment and severe joint space narrowing along the patellofemoral joint lines with osteophytic spurring, and sclerosis. The patellae are located in the trochlea but also show signs of sclerosis, and joint space narrowing. No signs of fracture, avulsion or dislocation. No overt signs of bony tumor. Assessment: Primary osteoarthritis of both knees (primary encounter diagnosis) Plan: The patient understands the diagnosis, treatment options and indications for both operative and non-operative, their associated risks, complications, benefits, outcomes, rehabilitation and failures. It was decided to proceed with a nonoperative treatment option consisting of NSAID?s and a physical therapy program emphasizing quadricep strengthening, stretching and ROM. Injection performed as detailed below: Large Joint Arthro/Inj: bilateral knee joints 11/13/2023 9:47 AM The procedure site was prepped in the usual sterile fashion. Site: bilateral knee joints Medications (Right): 40 mg triamcinolone acetonide 40 mg/mL Medications (Left): 80 mg triamcinolone acetonide 40 mg/mL Anesthetics (Right): 5 mL lidocaine (PF) 10 mg/mL (1 %) Anesthetics (Left): 5 mL lidocaine (PF) 10 mg/mL (1 %) Outcome: Tolerated well, no immediate complications Post-injection instructions were reviewed with the patient and the patient voiced understanding of these instructions. Tylenol was recommended for pain control if tolerated. To be used as directed on the bottle. He will return for follow-up in prn basis. Mark Vazquez MD [facility] 10-03-2023 History of Present illness Narrative Subjective Patient ID: Ingrid Donald is a 87 y.o. female who presents for Follow-up. HPI knee pain bilaterally Escitalopram and bupropion really not working well w/ dep/anx Fu dm, htn, hyperlipemia, dep, anx, ckd, afib Review of Systems As above Objective BP 122/72 Pulse 50 Ht 1.499 m (4' 11) Wt 83 kg (183 lb) SpO2 96% BMI 36.96 kg/m Physical Exam Gen nad, affect wnl Heentt eomfg, face symmetric, ncat Neck w/o la, tm, bruit Lungs clear Cv rrr nl s1, s2 Ext w/o edema Neuro grossly nonfocal Skin good color Labs reviewed Assessment/Plan Diagnoses and all orders for this visit: Depression, unspecified depression type - FLUoxetine (PROzac) 20 mg capsule; Take 1 capsule (20 mg) by mouth once daily. Chronic pain of both knees - XR knees anteroposterior standing bilateral; Future Type 2 diabetes mellitus without complication, without long-term current use of insulin (Multi) - Comprehensive metabolic panel; Future - Hemoglobin A1C; Future Hyperlipidemia, unspecified hyperlipidemia type Hypertension, unspecified type ASHD (arteriosclerotic heart disease) Anxiety HFrEF (heart failure with reduced ejection fraction) (Multi) COPD exacerbation (Multi) Paroxysmal atrial fibrillation (Multi) 1/2 citalopram. On currently Stop, after 4 days stop bupropion Next day start fluoxetine If better in a month, see me in june w/ labs If not, ov documented in this encounter [facility] Work Phone: 06-25-2023 History of Present illness Narrative Subjective Reason for Visit: Ingrid Donald is an 87 y.o. female here for a Medicare Wellness visit. Past Medical, Surgical, and Family History reviewed and updated in chart. Reviewed all medications by prescribing practitioner or clinical pharmacist (such as prescriptions, OTCs, herbal therapies and supplements) and documented in the medical record. HPI fu ashd, dep/anx, dm, htn, hyperlipidemia Anxious dealing w/ 's progressive alzheimers No bleeding or inc cp Patient Care Team: Eitan Price MD as PCP - General Eitan Price MD as PCP - [employer] PCP Review of Systems As above Objective Vitals: BP 116/66 Pulse (!) 49 Wt 82.1 kg (181 lb) SpO2 100% BMI 36.56 kg/m Physical Exam Gen nad, affect anxious Heentt eomfg, face symmetric, ncat Neck w/o la, tm, bruit Lungs clear Cv rrr nl s1, s2 Ext w/o edema Neuro grossly nonfocal Skin good color Labs reviewed Assessment/Plan Medicare wellness Dm Htn Hyperlipidemia Dep/anx Ashd Add bupropion xl Fu specialists Fu 3 mos w/ labsb documented in this encounter [facility] Work Phone: 12-26-2022 History of Present illness Narrative Ingrid Donald is here today in follow up for SDH and to review images. To review, she was initially evaluated on 11/30/2022, during admission at [facility] after mechanical fall off curb, falling onto face. She was on Eliquis at the time, for Afib. She denied headache at the time and reported that she lived in [place], [place], and was in the area for a meeting. On exam, she had no neuro deficits. Orders were written for repeat CT Head prior to outpatient follow up. Today, she feels well. She had imaging completed and is here to review findings. CT HEAD on 12/20/2022: IMPRESSION: 1. Interval resolution of previously seen acute subdural hemorrhage along the anterior falx. No new areas of intracranial hemorrhage or other acute intracranial abnormality seen on this exam. 2. Mild residual right frontal scalp swelling/hematoma, decreased when compared to 11/29/2022. Signed by: Kait Pope TREATMENTS: Avoidance of anticoagulation SMOKER: No ANTICOAGULANT USE: YES: Daily ASA ROS x 10 is, otherwise, negative unless documented in HPI above On Exam: Appears comfortable A&O x 4, speech clear / fluent Respirations even / unlabored Abdomen without distension BIRD Gait We reviewed images of CT head done 12/20/2022, and compared with images on 11/29/2022. We discussed resolution of SDH and okay to restart Eliquis for Afib. She agrees to follow up PRN. TOTAL TIME: Time preparing / completing chart: 7 MIN Time in face to face contact with patient, including counseling: > 15 MIN VINNY Berg documented in this encounter [facility] Work Phone: 12-26-2022 Instructions VINNY Berg - 12/26/2022 10:30 AM EST Your subdural hematoma has resolved. You may restart your blood thinners today. documented in this encounter [facility] Work Phone: 12-13-2022 History of Present illness Narrative Subjective Patient ID: Ingrid Donald is a 86 y.o. female who presents for Follow-up. HPI fell and landed on face Seen and checked out. Sdh. Seeing neurosurg Fu dm, ashd, htn, hyperlipidemia Review of Systems No hc, m, reyes, cp, sob Off eliquis, carvedilol, asa, bupropion, citalopram, furosemide Minimal dep Objective BP 122/70 Pulse 70 Temp 36.2 C (97.1 F) Ht 1.499 m (4' 11) Wt 80.7 kg (178 lb) SpO2 97% BMI 35.95 kg/m Physical Exam Gen nad, affect wnl Heentt eomfg, face symmetric, maxillary bruising, pe Neck w/o la, tm, bruit Lungs clear Cv rrr nl s1, s2 Ext w/o edema Neuro grossly nonfocal Skin good color Assessment/Plan Diagnoses and all orders for this visit: Subdural hemorrhage (CMS/HCC) Nonsustained ventricular tachycardia ([facility]/HCC) Non-ST elevation (NSTEMI) myocardial infarction ([facility]/HCC) Type 2 diabetes mellitus without complication, without long-term current use of insulin ([facility]/HCC) Paroxysmal atrial fibrillation ([facility]/HCC) Hypertension, unspecified type Class 2 severe obesity due to excess calories with serious comorbidity and body mass index (BMI) of 37.0 to 37.9 in adult ([facility]/HCC) Hyperlipidemia, unspecified hyperlipidemia type Stage 3a chronic kidney disease (CMS/HCC) CKD (chronic kidney disease), stage II ASHD (arteriosclerotic heart disease) Acute non-ST elevation myocardial infarction (NSTEMI) ([facility]) Ns 12/26 Cardio r/s amlodipine R/s citalopram Off carvedilol, asa, eliquis, furosemide, bupropion documented in this encounter [facility] Work Phone: 12-02-2022 History of Present illness Narrative Ingrid Donadl is a 86 y.o. female on day 3 of admission presenting with Subdural hemorrhage (CMS/HCC). No acute issues overnight. Denies having any chest pain or shortness of breath. In sinus rhythm with a heart rate in 60s Past medical history: Hypertension Paroxysmal atrial fibrillation Diabetes mellitus Chronic kidney disease Hyperlipidemia History of colon cancer History of anemia Coronary artery disease with previous NSTEMI and stent placement Physical Exam: General Appearance: Alert, oriented, no distress Skin: Warm and dry Head and Neck: No elevation of JVP, no carotid bruits. Marked periorbital ecchymosis Cardiac Exam: Rhythm is regular, S1 and S2 are normal, no murmur S3 or S4 Lungs: Clear to auscultation Extremities: no edema Neurologic: No focal deficits Psychiatric: Appropriate mood and behavior Last Recorded Vitals Blood pressure 121/59, pulse 72, temperature 36.5 C (97.7 F), temperature source Temporal, resp. rate 18, height 1.499 m (4' 11.02), weight 84 kg (185 lb 3 oz), SpO2 98 %. Intake/Output last 3 Shifts: No intake/output data recorded. Medications: Scheduled medications acetaminophen, 975 mg, oral, q8h SEBAS atorvastatin, 80 mg, oral, Daily buPROPion XL, 300 mg, oral, Daily citalopram, 40 mg, oral, q24h influenza, 0.7 mL, intramuscular, During hospitalization [Held by provider] furosemide, 40 mg, oral, Daily losartan, 100 mg, oral, Daily montelukast, 10 mg, oral, Nightly NIFEdipine ER, 60 mg, oral, Daily pantoprazole, 40 mg, oral, Daily before breakfast Labs: CBC - Lab Results Component Value Date WBC 8.7 12/02/2022 HGB 12.3 12/02/2022 HCT 39.1 12/02/2022 MCV 90 12/02/2022 PLT 161 12/02/2022 CMP - Lab Results Component Value Date CALCIUM 8.9 12/02/2022 LIPID PANEL - No results found for: CHOL, TRIG, HDL, CHHDL, LDLF, VLDL, NHDL RENAL FUNCTION PANEL - Lab Results Component Value Date GLUCOSE 102 (H) 12/02/2022 NA 139 12/02/2022 K 4.5 12/02/2022 CL 107 12/02/2022 CO2 26 12/02/2022 ANIONGAP 11 12/02/2022 BUN 34 (H) 12/02/2022 CREATININE 1.70 (H) 12/02/2022 CALCIUM 8.9 12/02/2022 Test Results: EKG: Sinus rhythm, no acute ischemic changes. Telemetry review shows sinus rhythm with no further episodes of bradycardia. Heart rate between 60 and 70 bpm. Assessment/Plan: 1. Sinus bradycardia: Yesterday the patient had periods of sinus bradycardia with a heart rate between 40 and 50 bpm. Today the heart rate is over 60 bpm and has been stable on telemetry. She is cleared for discharge from a cardiac perspective and can follow-up with her established clinical nursing professor in [place], [place]. 2. Hypertension: Blood pressure is better following IV hydralazine and the patient is now on nifedipine. December 02, 2022 Patient is fairly stable from cardiac standpoint. Bradycardia has resolved. Continue with nifedipine and losartan for blood pressure control. Holding AV evi blocking agents for now. I will defer the decision as to when to resume Eliquis to her outpatient clinical nursing professor in [place] that patient agrees to follow-up with in the next week or 2. Okay to discharge from cardiac standpoint Thank you for the consult. We will sign off. Please contact cardiology consult service with any additional questions. Ingrid Donald is a 86 y.o. female on day 3 of admission presenting with Subdural hemorrhage (CMS/HCC). Subjective Seen this morning. No issues overnight. Patient in good spirits and cleared for discharge. She appears hemodynamically stable. Tolerating PO intake. Objective Last Recorded Vitals BP 124/58 Pulse 63 Temp 36.5 C (97.7 F) (Temporal) Resp 18 Wt 84 kg (185 lb 3 oz) SpO2 97% Intake/Output last 3 Shifts: No intake or output data in the 24 hours ending 12/02/22 0957 Admission Weight Weight: 78.5 kg (173 lb) (11/29/22 1638) Daily Weight 11/30/22 : 84 kg (185 lb 3 oz) Image Results CT head wo IV contrast Narrative: Interpreted By: Michael Sharp, STUDY: CT HEAD WO IV CONTRAST; 11/29/2022 11:09 pm INDICATION: Stability scan for subdural hemorrhage. COMPARISON: CT brain 11/29/2022 at 4:24 p.m.. ACCESSION NUMBER(S): [id number] ORDERING CLINICIAN: FLORENCE BORGES TECHNIQUE: Axial noncontrast CT images of the head with coronal and sagittal reconstructions. FINDINGS: EXTRACRANIAL SOFT TISSUES: Persistent frontal scalp swelling. CALVARIUM: No depressed skull fracture. No destructive osseous lesion. Hyperostosis frontalis. PARANASAL SINUSES/MASTOIDS: The visualized paranasal sinuses and mastoid air cells are aerated. HEMORRHAGE: Persistent hyperdense thickening along the anterior aspect of the interhemispheric fissure compatible with acute subdural hemorrhage measuring up to 3 mm in maximum thickness, similar compared to prior imaging. BRAIN PARENCHYMA: Ureña-white matter interfaces are preserved. No mass effect or midline shift. There are nonspecific scattered white matter hypodensities. VENTRICLES and EXTRA-AXIAL SPACES: Normal size. OTHER FINDINGS: There are calcifications within the cavernous carotids Impression: Persistent hyperdense thickening along the anterior aspect of the interhemispheric fissure compatible with acute subdural hemorrhage measuring up to 3 mm in maximum thickness, similar compared to prior imaging. No additional new areas of hemorrhage are evident. Nonspecific scattered white matter hypodensities, which may represent sequela of small vessel ischemia. Redemonstrated frontal scalp swelling with no underlying depressed calvarial fracture. MACRO: None. Signed by: Michael Sharp 11/29/2022 11:18 PM Dictation workstation: [id number] CT head W O contrast trauma protocol, CT cervical spine wo IV contrast, CT maxillofacial bones wo IV contrast Narrative: Interpreted By: Forrest Drew, STUDY: CT FACIAL BONES WO IV CONTRAST; CT HEAD W/O CONTRAST TRAUMA PROTOCOL; CT CERVICAL SPINE WO IV CONTRAST; 11/29/2022 4:37 pm INDICATION: Signs/Symptoms:fall, R frontal bone ecchymosis; Signs/Symptoms:Fall, right forehead hematoma, on Eliquis. COMPARISON: None. ACCESSION NUMBER(S): [id number]; [id number]; [id number] ORDERING CLINICIAN: CORBIN BRYAN; FLORENCE BORGES TECHNIQUE: Noncontrast axial CT scan of head, facial bones, and cervical spine was performed. Angled reformats in brain and bone windows were generated. The images were reviewed in bone, brain, blood and soft tissue windows. 3D volume rendered images of the facial bones were obtained and reviewed. FINDINGS: Head and facial bones: Acute subdural hematoma is seen along the interhemispheric fissure measuring up to 0.3 cm in thickness. There is no other intra/extra-axial fluid collection, mass effect, or midline shift. The ureña/white matter junction is preserved. Hypoattenuation of periventricular and subcortical white matter suggestive of chronic small vessel ischemic disease. Mild diffuse parenchymal volume loss is noted the basal cisterns are patent. The bilateral globes are intact. No acute fracture or dislocation is seen in the facial and cranial bones. Paranasal sinuses are clear. Cervical spine: There is no acute fracture or traumatic subluxation in the cervical spine. Minimal anterior slippage of C2 on C3 and C4 on C5 is most likely degenerative in etiology. Multilevel cervical spondylosis is noted. There is loss of normal cervical lordosis, which may be positional or due to muscle spasm. Prevertebral soft tissues are unremarkable. There is no apical pneumothorax. Impression: Acute subdural hematoma along the interhemispheric fissure measuring up to 0.3 cm in thickness. No midline shift. No acute fracture or dislocation in the facial and cranial bones. No acute fracture or traumatic subluxation in the cervical spine. I discussed the findings by phone with Dr. Bryan at 4:45 p.m. on 11/30/2019 Signed by: Forrest Drew 11/29/2022 4:54 PM Dictation workstation: [id number] Physical Exam Vitals reviewed. Constitutional: General: She is awake. Appearance: Normal appearance. She is well-developed. She is not ill-appearing or toxic-appearing. HENT: Right Ear: External ear normal. Left Ear: External ear normal. Nose: Nose normal. Mouth/Throat: Mouth: Mucous membranes are moist. Pharynx: Oropharynx is clear. Eyes: Extraocular Movements: Extraocular movements intact. Conjunctiva/sclera: Conjunctivae normal. Pupils: Pupils are equal, round, and reactive to light. Cardiovascular: Rate and Rhythm: Normal rate and regular rhythm. Heart sounds: Normal heart sounds. No murmur heard. Pulmonary: Effort: Pulmonary effort is normal. No accessory muscle usage or respiratory distress. Breath sounds: Normal breath sounds. Abdominal: General: Bowel sounds are normal. There is no distension. Palpations: Abdomen is soft. Tenderness: There is no abdominal tenderness. Musculoskeletal: General: No swelling, tenderness or signs of injury. Cervical back: Normal range of motion. Right lower leg: No edema. Left lower leg: No edema. Skin: General: Skin is warm and dry. Findings: No erythema or rash. Neurological: General: No focal deficit present. Mental Status: She is alert. Mental status is at baseline. Sensory: No sensory deficit. Psychiatric: Attention and Perception: Attention normal. Mood and Affect: Mood normal. Behavior: Behavior is cooperative. Relevant Results Assessment/Plan This patient currently has cardiac telemetry ordered; if you would like to modify or discontinue the telemetry order, click here to go to the orders activity to modify/discontinue the order. Principal Problem: Subdural hemorrhage (CMS/HCC) 1.) Mech fall with head trauma and SDH - defer to trauma service - no focal deficits. - repeat stable 2.) HTN - Cardiology also following for bradycardia - currently NSR at 60. Carvedilol on hold for HR - could probably continue to hold until follow up with her regular providers as outpatient. On Nifedipine. On home dose losartan Appears euvolemic. Defer diuretic to surgery. 3.) CKD - Near baseline. Cr. Baseline appears to be around 1.5 4.) h/o CAD - BB held for bradycardia - ASA held for SDH - would defer to neurosurgery for when to restart - Statin 5.) h/o asthma - on home dose singular - no issues 6.) h/o A/D On celexa home dose DVT Proph SCDs Pharm DVT proph contraindicated with SDH Overall, appears stable for discharge. May need to hold beta silvana until outpatient follow up. Tolerating nifedipine well, but could likely resume home amlodipine upon discharge. Leobardo Garrison DO Trauma Surgery Attending Note My Acute Care Surgery HORACIO (Advanced Practice Provider) evaluated this patient today. Please see that documentation for details. I saw the patient with the HORACIO today, and personally evaluated and examined the patient. My findings are consistent with those of the HORACIO. Impression: Hospital day #4 Posttrauma day #3 This 86-year-old female suffered a fall off of a curb She has multiple medical problems She has the following injuries: SDH, 2.8 mm - stable on repeat CT Rt frontal scalp hematoma Rt periorbital hematoma She developed hypertension during her hospital course and this is now being controlled and she has been cleared by the critical care service for discharge Plan: Discharged to home today Encouraged the patient to follow-up with her primary medical physician Neurosurgery follow-up as recommended Follow-up with trauma surgery service as needed Ingrid Donald is a 86 y.o. female on day 2 of admission presenting with Subdural hemorrhage (CMS/HCC). SUBJECTIVE: Intermittently feels her head pulsating but otherwise denies any chest pain or SOB. OBJECTIVE: Physical Exam: Constitutional: awake, alert ENMT: mucous membranes moist, EOMI, conjunctivae clear, periorbital ecchymosis Head/Neck: normocephalic; supple, trachea midline Respiratory/Thorax: patent airways, CTAB Cardiovascular: RRR, no murmur Gastrointestinal: soft, nondistended, non-tender, bowel sounds appreciated Extremities: palpable peripheral pulses, no edema Neurological: AO x3, no focal deficits Psychological: appropriate mood and behavior Skin: warm and dry Daily progress: 12/01: Critical care team reconsulted after she became hypertensive with SBP in the 200s. This improved with PRN Hydralazine. Will start Nifedipine 60mg. ASSESSMENT/PLAN: This is an 86-year-old female, with a past medical history of CHF, diverticulitis, CKD, hypertension, hyperlipidemia, colon cancer (in remission), and atrial fibrillation on AC, who presented to the ED via EMS after suffering a mechanical fall after eating dinner and stepping down from a curb at a restaurant. Patient was initially admitted to ICU for SDH and frequent neurochecks. She did briefly require Cardene drip for hypertensive urgency but then was transferred to medical floor. She returns to the ICU given hypertensive urgency with SBP in the 200s. Neurological: Subdural hematoma s/p mechanical fall Depression Currently at baseline Aox3 - Analgesia: Tylenol - Continue citalopram, bupropion Cardiovascular: Hx hypertension with urgency Paroxysmal afib on Eliquis Sinus bradycardia Hyperlipidemia CAD with hx NSTEMI s/p PCI with stent - Cardiology following - Replace home Norvasc with Nifedipine. - Continue home Losartan, Atorvastatin. Hold home Coreg given bradycardia. - Hold home Eliquis given SDH. Respiratory: No active issues. Gastrointestinal: - Diet: Regular - PPX: Protonix Endocrine: NIDDM2 No active issues. Renal: CKD Baseline SCr ~1.4 No active issues. - Monitor & replete electrolytes PRN Hematological: Hx colon cancer, in remission - Trend CBC Infection Disease: No active issues. Skin/MSK: No active issues. Vent/O2: RA Lines/Devices: PIVs Drips: - ATBx: - Diet: Regular IVF: - PPX: SCDs only given SDH, Protonix Code: FULL Dispo: ICU This is a preliminary note written by the resident. Please wait for attending addendum for finalization of note and recommendations. Domenica Walton DO Internal Medicine PGY3 Associated attestation - Kyra Perez DO - 12/02/2022 8:24 AM EDT Brief Attending Summary: Saw patient and agree. Asymptomatic HTN today. Pt remains gregorio to 50-60s, beta silvana still on hold. Switched amlodipine 5mg daily to nifedipine 60mg daily with good BP response. No critical care needs. Internal medicine and cardiology following. I have reviewed and evaluated the most recent data and results, personally examined the patient, and formulated the plan of care as presented above. Teaching and any separately billable procedures are not included in the time calculation. Billing Provider Time: 35 minutes Ingrid Donald is a 86 y.o. female on day 2 of admission presenting with Subdural hemorrhage (CMS/HCC). HPI: The patient has no complaints of palpitations, chest pain, or shortness of breath. Blood pressure readings today were elevated but now are under better control following intravenous hydralazine. 11/30/22: This is an 86-year-old female with a history of paroxysmal atrial fibrillation. She is being seen today in consultation for evaluation of bradycardia. The patient suffered a fall yesterday and struck her head on the ground. She denies having any dizziness or syncope prior to the fall, but states that she tripped on a curb. She has established cardiology care in [facility] and has had no recent cardiac symptoms. No complaints of palpitations, chest pain, shortness of breath, dizziness, or syncope. Past medical history: Hypertension Paroxysmal atrial fibrillation Diabetes mellitus Chronic kidney disease Hyperlipidemia History of colon cancer History of anemia Coronary artery disease with previous NSTEMI and stent placement Physical Exam: General Appearance: Alert, oriented, no distress Skin: Warm and dry Head and Neck: No elevation of JVP, no carotid bruits. Marked periorbital ecchymosis Cardiac Exam: Rhythm is regular, S1 and S2 are normal, no murmur S3 or S4 Lungs: Clear to auscultation Extremities: no edema Neurologic: No focal deficits Psychiatric: Appropriate mood and behavior Last Recorded Vitals Blood pressure 127/61, pulse 62, temperature 36.4 C (97.5 F), temperature source Temporal, resp. rate 20, height 1.499 m (4' 11.02), weight 84 kg (185 lb 3 oz), SpO2 99 %. Intake/Output last 3 Shifts: I/O last 3 completed shifts: In: 105.2 (1.3 mL/kg) [I.V.:105.2 (1.3 mL/kg)] Out: - (0 mL/kg) Weight: 84 kg Medications: Scheduled medications acetaminophen, 975 mg, oral, q8h SEBAS atorvastatin, 80 mg, oral, Daily buPROPion XL, 300 mg, oral, Daily citalopram, 40 mg, oral, q24h influenza, 0.7 mL, intramuscular, During hospitalization [Held by provider] furosemide, 40 mg, oral, Daily losartan, 100 mg, oral, Daily montelukast, 10 mg, oral, Nightly NIFEdipine ER, 60 mg, oral, Daily pantoprazole, 40 mg, oral, Daily before breakfast Labs: CBC - Lab Results Component Value Date WBC 7.9 11/30/2022 HGB 11.7 (L) 11/30/2022 HCT 37.6 11/30/2022 MCV 92 11/30/2022 PLT 151 11/30/2022 CMP - Lab Results Component Value Date CALCIUM 9.3 11/30/2022 LIPID PANEL - No results found for: CHOL, TRIG, HDL, CHHDL, LDLF, VLDL, NHDL RENAL FUNCTION PANEL - Lab Results Component Value Date GLUCOSE 123 (H) 11/30/2022 NA 141 11/30/2022 K 4.6 11/30/2022 CL 109 (H) 11/30/2022 CO2 24 11/30/2022 ANIONGAP 13 11/30/2022 BUN 27 (H) 11/30/2022 CREATININE 1.49 (H) 11/30/2022 CALCIUM 9.3 11/30/2022 Test Results: EKG: Sinus rhythm, no acute ischemic changes. Telemetry review shows sinus rhythm with no further episodes of bradycardia. Heart rate between 60 and 70 bpm. Assessment/Plan: 1. Sinus bradycardia: Yesterday the patient had periods of sinus bradycardia with a heart rate between 40 and 50 bpm. Today the heart rate is over 60 bpm and has been stable on telemetry. She is cleared for discharge from a cardiac perspective and can follow-up with her established clinical nursing professor in [place], [place]. 2. Hypertension: Blood pressure is better following IV hydralazine and the patient is now on nifedipine. Fatuma Starr DO This SW called TONY Stanley listed in pt's chart to discuss IMM rights. Lizeth has no concerns at this time, [facility] contact info presented over the phone. SW relayed that pt may be dc'd today or tomorrow pending BP per the TCC's message. Lizeth had no further questions at this time. MICAELA DARLING Ingrid Donald is a 86 y.o. female on day 2 of admission presenting with Subdural hemorrhage (CMS/HCC). Pt possible discharge later today vs tomorrow pending BP. Pt is home with no needs. Pt last documented BP was 185/79. Will request SW to give IMM. Rita Bowen RN Ingrid Donald is a 86 y.o. female on day 2 of admission presenting with Subdural hemorrhage (CMS/HCC). Subjective Patient is without acute complaints however, states her BP has been elevated. SBP currently in the low 200's. Denies headache. Denies nausea, vomiting or vision changes. Objective Physical Exam Constitutional: Appearance: Normal appearance. She is normal weight. HENT: Head: Normocephalic. Comments: Healing bilateral periorbital ecchymosis Mouth/Throat: Mouth: Mucous membranes are moist. Cardiovascular: Rate and Rhythm: Normal rate and regular rhythm. Pulmonary: Effort: Pulmonary effort is normal. Breath sounds: Normal breath sounds. Abdominal: General: Abdomen is flat. Bowel sounds are normal. Palpations: Abdomen is soft. Tenderness: There is no abdominal tenderness. Skin: General: Skin is warm and dry. Neurological: General: No focal deficit present. Mental Status: She is alert and oriented to person, place, and time. Psychiatric: Mood and Affect: Mood normal. Last Recorded Vitals Blood pressure (!) 185/79, pulse 55, temperature 36.4 C (97.5 F), resp. rate 15, height 1.499 m (4' 11.02), weight 84 kg (185 lb 3 oz), SpO2 97 %. Intake/Output last 3 Shifts: I/O last 3 completed shifts: In: 105.2 (1.3 mL/kg) [I.V.:105.2 (1.3 mL/kg)] Out: - (0 mL/kg) Weight: 84 kg Relevant Results This patient currently has cardiac telemetry ordered; if you would like to modify or discontinue the telemetry order, click here to go to the orders activity to modify/discontinue the order. No results found for this or any previous visit (from the past 24 hour(s)). Assessment/Plan Principal Problem: Subdural hemorrhage (CMS/HCC) Patient is a 86 y.o. female with PMH significant for HTN, HLD, Afib, CAD/NSTEMI s/p stents, chronic anemia, GERD, DMT2, mitral regurgitation, colon cancer, CHF, and MDD who presented to [facility] ED on 11/29 as an HIA following a mechanical fall and was found to have a SDH. Pt admitted to ICU under trauma surgery with consult to NSGY, bowl sander, and cardiology. List of Injuries: SDH, 2.8 mm - stable on repeat CT Rt frontal scalp hematoma Rt periorbital hematoma #SDH - stable on repeat CT - HOB >45 - Minimize metabolic demands > Maintain SBP >100 and <160 > Avoid fevers > Avoid hyponatremia > Maintain euglycemia > Avoid hypoxia - Tylenol prn mild pain, oxy prn mod-severe - No NSAIDs - NSGY consult - DVT ppx w/ SCDs only #Hypertensive urgency #Transient Bradycardia into 40s - resolved - S/p 5 mg hydralazine x2 in ED with transient response and bradycardia - S/p cardene gtt x9 hours - Home meds resumed - Cardiology consulted - BP elevated this am, await further cardiology recommendations Chronic conditions #HTN #HLD #CAD #CHF #GERD - Hold home ASA - Continue other meds as appropriate - Medicine consult once out of ICU #Afib, paroxysmal - Hold home eliquis - Cardiology consult #DMT2 - Hold home PO meds - SSI while hospitalized DVT ppx: SCDs only PT/OT Dispo: transfer to tele floor. Anticipate DC when BP improved, possibly today vs tomorrow Patient will be discussed with the attending surgeon, Dr. Parker. I spent 30 minutes in the professional and overall care of this patient. VINNY Dewitt Physical Therapy Physical Therapy Evaluation Patient Name: Ingrid Donald Today's Date: 11/30/2022 Time Calculation Start Time: 1102 Stop Time: 1114 Time Calculation (min): 12 min Assessment/Plan PT Assessment End of Session Communication: Bedside nurse End of Session Patient Position: Up in chair, Alarm off, not on at start of session IP OR SWING BED PT PLAN Inpatient or Swing Bed: Inpatient PT Plan PT Eval Only Reason: At baseline function PT Discharge Recommendations: No further acute PT PT Recommended Transfer Status: Independent PT - OK to Discharge: Yes (To next level of care) Subjective General Visit Information: General Reason for Referral: acute SDH,hypertensive urgency;fall=tripped on a curb Referred By: David Past Medical History Relevant to Rehab: htn,hld,dm,cad,chf,a-fib Prior to Session Communication: Bedside nurse Patient Position Received: Up in chair, Alarm off, not on at start of session Home Living: Home Living Type of Home: House Lives With: Spouse Home Adaptive Equipment: Walker rolling or standard, Cane Home Layout: One level Home Access: Stairs to enter without rails (1 step) Bathroom Shower/Tub: Walk-in shower Bathroom Toilet: Handicapped height Bathroom Equipment: Shower chair with back, Hand-held shower hose Prior Level of Function: Prior Function Per Pt/Caregiver Report Level of Sledge: Independent with ADLs and functional transfers, Independent with homemaking with ambulation Hand Dominance: Right Prior Function Comments: (drives) Precautions: Vital Signs: Vital Signs Heart Rate: (!) 45 SpO2: 96 % BP: 114/58 Objective Pain: Pain Assessment Pain Score: 0 - No pain Cognition: Cognition Overall Cognitive Status: Within Functional Limits General Assessments: Functional Assessments: Bed Mobility Bed Mobility: Yes Bed Mobility 1 Level of Assistance 1: Independent Transfers Transfer: Yes Transfer 1 Transfer to 1: Chair with arms Transfer Level of Assistance 1: Independent Ambulation/Gait Training Ambulation/Gait Training Performed: Yes Ambulation/Gait Training 1 Device 1: No device, Rolling walker Assistance 1: Independent Comments/Distance (ft) 1: (50 ft) Extremity/Trunk Assessments: Outcome Measures: [facility] Basic Mobility Turning from your back to your side while in a flat bed without using bedrails: None Moving from lying on your back to sitting on the side of a flat bed without using bedrails: None Moving to and from bed to chair (including a wheelchair): None Standing up from a chair using your arms (e.g. wheelchair or bedside chair): None To walk in hospital room: None Climbing 3-5 steps with railing: None Basic Mobility - Total Score: 24 Education Documentation No documentation found. Education Comments No comments found. Ingrid Donald is a 86 y.o. female on day 1 of admission presenting with Subdural hemorrhage (CMS/HCC). Subjective Pt states she feels much better today. Denies REYES, vision changes, dizziness, mental fogginess/confusion, or N/V. Patient required cardene drip for labile blood pressure and was monitored in the ICU overnight for acute bradycardia, now resolved. Repeat CT stable. BP stable w/ systolic between 110 and 160, HR hovering in mid 50s. Seen by NSGY this AM. Objective Physical Exam Constitutional: General: She is not in acute distress. Appearance: Normal appearance. HENT: Head: Comments: Rt frontal scalp hematoma, soft, non-TTP Mouth/Throat: Mouth: Mucous membranes are moist. Eyes: Extraocular Movements: Extraocular movements intact. Conjunctiva/sclera: Conjunctivae normal. Pupils: Pupils are equal, round, and reactive to light. Comments: Bilat periorbital ecchymoses R>L; Rt periorbital edema Neck: Vascular: Carotid bruit: .att. Cardiovascular: Rate and Rhythm: Regular rhythm. Bradycardia present. Heart sounds: No murmur heard. Pulmonary: Effort: Pulmonary effort is normal. No respiratory distress. Breath sounds: Normal breath sounds. Abdominal: General: Abdomen is flat. Bowel sounds are normal. There is no distension. Palpations: Abdomen is soft. Tenderness: There is no abdominal tenderness. Musculoskeletal: General: No swelling, tenderness or deformity. Normal range of motion. Cervical back: Neck supple. No tenderness. Skin: General: Skin is warm and dry. Coloration: Skin is not jaundiced or pale. Findings: Abrasion (Rt elbow, Rt knee) present. Neurological: General: No focal deficit present. Mental Status: She is alert and oriented to person, place, and time. GCS: GCS eye subscore is 4. GCS verbal subscore is 5. GCS motor subscore is 6. Sensory: Sensation is intact. Motor: Motor function is intact. Psychiatric: Mood and Affect: Mood normal. Behavior: Behavior normal. Last Recorded Vitals Blood pressure 114/58, pulse 50, temperature 36.4 C (97.5 F), temperature source Temporal, resp. rate 11, height 1.499 m (4' 11), weight 84 kg (185 lb 3 oz), SpO2 96 %. Intake/Output last 3 Shifts: No intake/output data recorded. Relevant Results WBC Date/Time Value Ref Range Status 11/30/2022 06:57 AM 7.9 4.4 - 11.3 x10*3/uL Final Hemoglobin Date/Time Value Ref Range Status 11/30/2022 06:57 AM 11.7 (L) 12.0 - 16.0 g/dL Final Urea Nitrogen Date/Time Value Ref Range Status 11/30/2022 06:57 AM 27 (H) 6 - 23 mg/dL Final Creatinine Date/Time Value Ref Range Status 11/30/2022 06:57 AM 1.49 (H) 0.50 - 1.05 mg/dL Final Potassium Date/Time Value Ref Range Status 11/30/2022 06:57 AM 4.6 3.5 - 5.3 mmol/L Final Sodium Date/Time Value Ref Range Status 11/30/2022 06:57 AM 141 136 - 145 mmol/L Final CT head wo IV contrast 11/29/2022 Narrative Interpreted By: Michael Sharp, STUDY: CT HEAD WO IV CONTRAST; 11/29/2022 11:09 pm INDICATION: Stability scan for subdural hemorrhage. COMPARISON: CT brain 11/29/2022 at 4:24 p.m.. ACCESSION NUMBER(S): [id number] ORDERING CLINICIAN: FLORENCE BORGES TECHNIQUE: Axial noncontrast CT images of the head with coronal and sagittal reconstructions. FINDINGS: EXTRACRANIAL SOFT TISSUES: Persistent frontal scalp swelling. CALVARIUM: No depressed skull fracture. No destructive osseous lesion. Hyperostosis frontalis. PARANASAL SINUSES/MASTOIDS: The visualized paranasal sinuses and mastoid air cells are aerated. HEMORRHAGE: Persistent hyperdense thickening along the anterior aspect of the interhemispheric fissure compatible with acute subdural hemorrhage measuring up to 3 mm in maximum thickness, similar compared to prior imaging. BRAIN PARENCHYMA: Ureña-white matter interfaces are preserved. No mass effect or midline shift. There are nonspecific scattered white matter hypodensities. VENTRICLES and EXTRA-AXIAL SPACES: Normal size. OTHER FINDINGS: There are calcifications within the cavernous carotids Impression Persistent hyperdense thickening along the anterior aspect of the interhemispheric fissure compatible with acute subdural hemorrhage measuring up to 3 mm in maximum thickness, similar compared to prior imaging. No additional new areas of hemorrhage are evident. Nonspecific scattered white matter hypodensities, which may represent sequela of small vessel ischemia. Redemonstrated frontal scalp swelling with no underlying depressed calvarial fracture. MACRO: None. Signed by: Michael Sharp 11/29/2022 11:18 PM Dictation workstation: [id number] Assessment/Plan Principal Problem: Subdural hemorrhage (CMS/HCC) Patient is a 86 y.o. female with PMH significant for HTN, HLD, Afib, CAD/NSTEMI s/p stents, chronic anemia, GERD, DMT2, mitral regurgitation, colon cancer, CHF, and MDD who [facility] [facility] following a mechanical fall and was found to have a SDH. Pt admitted to ICU under trauma surgery with consult to NSGY, bowl sander, and cardiology. List of Injuries: SDH, 2.8 mm - stable on repeat CT Rt frontal scalp hematoma Rt periorbital hematoma #SDH - stable on repeat CT - HOB >45 - Minimize metabolic demands > Maintain SBP >100 and <160 > Avoid fevers > Avoid hyponatremia > Maintain euglycemia > Avoid hypoxia - Tylenol prn mild pain, oxy prn mod-severe - No NSAIDs - NSGY consult - DVT ppx w/ SCDs only #Hypertensive urgency - resolved #Transient Bradycardia into 40s - resolved - S/p 5 mg hydralazine x2 in ED with transient response and bradycardia - S/p cardene gtt x9 hours - Home meds resumed this AM - Cardiology consulted Chronic conditions #HTN #HLD #CAD #CHF #GERD - Hold home ASA - Continue other meds as appropriate - Medicine consult once out of ICU #Afib, paroxysmal - Hold home eliquis - Cardiology consult #DMT2 - Hold home PO meds - SSI while hospitalized DVT ppx: SCDs only PT/OT Dispo: transfer to tele floor. Anticipate discharge tomorrow. Patient will be discussed with the attending surgeon, Dr. Parker. I spent 35 minutes in the professional and overall care of this patient. Sintia Hernandez PA-C I saw and evaluated the patient. I personally obtained the alexander and critical portions of the history and physical exam I was physically present for alexander and critical portions performed by the advanced practitioner. I reviewed the advanced practitioner's documentation and discussed the patient with the advanced practitioner. I agree with the advanced practitioner's medical decision making as documented in the advanced practitioner's note. Comments/Additional Findings: Patient seen and examined with the advanced practitioner and I agree with the findings as documented above. Follow-up CT noted. No focal neurological deficits. Hypertension corrected bradycardia has persisted. Cardiology input appreciated. Continue current management Care transitions assessment completed via bedside with patient. TCC introduced self and explained role. Demographics verified. Patient from home with spouse. Patient is primary caregiver for spouse. Patient states son and DIL are with spouse now. Patient is independent [employer]. Denies use of assistive devices. Denies SW needs at this time. Dispo pending hospital course. Patient's family to transport home at time of discharge. TCC to continue to follow for discharge planning needs. PCP: Eitan Price Last seen: couple weeks 11/29/221938 Discharge Planning Living Arrangements Spouse/significant other Support Systems Children Assistance Needed Independent Type of Residence Private residence Number of Stairs to Enter Residence 1 Number of Stairs Within Residence 12 Do you have animals or pets at home? No Patient expects to be discharged to: Home Does the patient need discharge transport arranged? No Financial Resource Strain How hard is it for you to pay for the very basics like food, housing, medical care, and heating? Not hard Housing Stability In the last 12 months, was there a time when you were not able to pay the mortgage or rent on time? N In the last 12 months, how many places have you lived? 1 In the last 12 months, was there a time when you did not have a steady place to sleep or slept in a snf (including now)? N Transportation Needs In the past 12 months, has lack of transportation kept you from medical appointments or from getting medications? no In the past 12 months, has lack of transportation kept you from meetings, work, or from getting things needed for daily living? No Debo Farah RN ED TCC Pharmacy Medication History Review Ingrid Donald is a 86 y.o. female admitted for No Principal Problem: There is no principal problem currently on the Problem List. Please update the Problem List and refresh.. Pharmacy reviewed the patient's [id number] medications and allergies for accuracy. The list below reflectives the updated [employer] list. Please review each medication in order reconciliation for additional clarification and justification. (Not in a hospital admission) The list below reflectives the updated allergy list. Please review each documented allergy for additional clarification and justification. Allergies Reviewed by Celi Duarte CPhT on 11/29/2022 Severity Reactions Comments Morphine Medium Itching Ibuprofen Low Itching Below are additional concerns with the patient's [employer] list. See [employer] med list Celi Duarte CPhT documented in this encounter [facility] Work Phone: 12-02-2022 Hospital Note Formatting of t his note might be different from the original. Patient is a 86 y.o. female with PMH significant for HTN, HLD, Afib, CAD/NSTEMI s/p stents, chronic anemia, GERD, DMT2, mitral regurgitation, colon cancer, CHF, and MDD who presented to [facility] ED on 11/29 as an HIA following a mechanical fall and was found to have a SDH. Pt admitted to ICU under trauma surgery with consult to NSGY, bowl sander, and cardiology. List of Injuries: SDH, 2.8 mm - stable on repeat CT Rt frontal scalp hematoma Rt periorbital hematoma SDH stable on repeat head CT. Patient to follow up in 2-3 weeks with NSGY. Hypertensive urgency resolved with a cardene drip that was then transitioned to PO nifedipine. Patient will be discharged home on home regimen with close PCP follow up for reeval. Evaluated by cardiology with recommendations for close follow up with outpt clinical nursing professor. Patient will hold home Eliquis until cleared by NSGY at follow up. Evaluated by PT/OT, no new needs identified. [facility] Work Phone: 12-02-2022 Hospital course Narrative Discharge Diagnosis Subdural hemorrhage (CMS/HCC) Issues Requiring Follow-Up SDH, HTN, bradycardia Test Results Pending At Discharge Pending Labs No current pending labs. Hospital Course Patient is a 86 y.o. female with PMH significant for HTN, HLD, Afib, CAD/NSTEMI s/p stents, chronic anemia, GERD, DMT2, mitral regurgitation, colon cancer, CHF, and MDD who presented to [facility] ED on 11/29 as an HIA following a mechanical fall and was found to have a SDH. Pt admitted to ICU under trauma surgery with consult to NSGY, bowl sander, and cardiology. List of Injuries: SDH, 2.8 mm - stable on repeat CT Rt frontal scalp hematoma Rt periorbital hematoma SDH stable on repeat head CT. Patient to follow up in 2-3 weeks with NSGY. Hypertensive urgency resolved with a cardene drip that was then transitioned to PO nifedipine. Patient will be discharged home on home regimen with close PCP follow up for reeval. Evaluated by cardiology with recommendations for close follow up with outpt clinical nursing professor. Patient will hold home Eliquis until cleared by NSGY at follow up. Evaluated by PT/OT, no new needs identified. Pertinent Physical Exam At Time of Discharge Physical Exam Constitutional: Appearance: Normal appearance. She is normal weight. HENT: Head: Normocephalic. Comments: Facial ecchymosis healing Mouth/Throat: Mouth: Mucous membranes are moist. Cardiovascular: Rate and Rhythm: Normal rate and regular rhythm. Pulmonary: Effort: Pulmonary effort is normal. Breath sounds: Normal breath sounds. Abdominal: General: Abdomen is flat. Bowel sounds are normal. Palpations: Abdomen is soft. Tenderness: There is no abdominal tenderness. Skin: General: Skin is warm and dry. Neurological: General: No focal deficit present. Mental Status: She is alert and oriented to person, place, and time. Psychiatric: Mood and Affect: Mood normal. Home Medications Medication List CONTINUE taking these medications amLODIPine 5 mg tablet; Commonly known as: Norvasc; Take 1 tablet (5 mg) by mouth once daily. atorvastatin 80 mg tablet; Commonly known as: Lipitor; Take 1 tablet (80 mg) by mouth once daily. cyanocobalamin 1,000 mcg tablet; Commonly known as: Vitamin B-12 ferrous sulfate 325 (65 Fe) MG tablet; Take 1 tablet (325 mg) by mouth once daily with a meal. losartan 100 mg tablet; Commonly known as: Cozaar; Take 1 tablet (100 mg) by mouth once daily. metFORMIN 500 mg tablet; Commonly known as: Glucophage; Take 1 tablet (500 mg) by mouth once daily with a meal. montelukast 10 mg tablet; Commonly known as: Singulair; Take 1 tablet (10 mg) by mouth once daily at bedtime. omeprazole [address] capsule; Commonly known as: PriLOSEC STOP taking these medications apixaban 2.5 mg tablet; Commonly known as: Eliquis aspirin 81 mg EC tablet buPROPion XL 300 mg 24 hr tablet; Commonly known as: Wellbutrin XL carvedilol 25 mg tablet; Commonly known as: Coreg citalopram 40 mg tablet; Commonly known as: CeleXA furosemide 40 mg tablet; Commonly known as: Lasix Outpatient Follow-Up Future Appointments Date Time Provider Department Center 12/13/2022 3:00 PM Eitan Price MD [id number] [facility] VINNY Dewitt documented in this encounter [facility] Work Phone: 12-02-2022 Miscellaneous Notes Patient is a 86 y.o. female with PMH significant for HTN, HLD, Afib, CAD/NSTEMI s/p stents, chronic anemia, GERD, DMT2, mitral regurgitation, colon cancer, CHF, and MDD who presented to [facility] ED on 11/29 as an HIA following a mechanical fall and was found to have a SDH. Pt admitted to ICU under trauma surgery with consult to NSGY, bowl sander, and cardiology. List of Injuries: SDH, 2.8 mm - stable on repeat CT Rt frontal scalp hematoma Rt periorbital hematoma SDH stable on repeat head CT. Patient to follow up in 2-3 weeks with NSGY. Hypertensive urgency resolved with a cardene drip that was then transitioned to PO nifedipine. Patient will be discharged home on home regimen with close PCP follow up for reeval. Evaluated by cardiology with recommendations for close follow up with outpt clinical nursing professor. Patient will hold home Eliquis until cleared by NSGY at follow up. Evaluated by PT/OT, no new needs identified. Problem: Nutrition Goal: Less than 5 days NPO/clear liquids Outcome: Progressing Goal: Oral intake greater than 50% Outcome: Progressing Goal: Oral intake greater 75% Outcome: Progressing Goal: Consume prescribed supplement Outcome: Progressing Goal: Adequate PO fluid intake Outcome: Progressing Goal: Nutrition support goals are met within 48 hrs Outcome: Progressing Goal: Nutrition support is meeting 75% of nutrient needs Outcome: Progressing Goal: BG 80-180 mg/dL Outcome: Progressing Goal: Lab values WNL Outcome: Progressing Goal: Electrolytes WNL Outcome: Progressing Goal: Promote healing Outcome: Progressing Goal: Maintain stable weight Outcome: Progressing Goal: Reduce weight from edema/fluid Outcome: Progressing Problem: Diabetes Goal: Achieve decreasing blood glucose levels by end of shift Outcome: Progressing Goal: Increase stability of blood glucose readings by end of shift Outcome: Progressing Goal: Decrease in ketones present in urine by end of shift Outcome: Progressing Goal: Maintain electrolyte levels within acceptable range throughout shift Outcome: Progressing Goal: Maintain glucose levels >70mg/dl to <250mg/dl throughout shift Outcome: Progressing Goal: No changes in neurological exam by end of shift Outcome: Progressing Goal: Learn about and adhere to nutrition recommendations by end of shift Outcome: Progressing Goal: Vital signs within normal range for age by end of shift Outcome: Progressing Goal: Increase self care and/or family involovement by end of shift Outcome: Progressing Goal: Receive DSME education by end of shift Outcome: Progressing The patient's goals for the shift include Remain safe and free from injury throughout shift. The clinical goals for the shift include Maintain blood pressure. The patient's goals for the shift include Remain safe and free from injury throughout shift. The clinical goals for the shift include Maintain blood pressure. Problem: Nutrition Goal: Less than 5 days NPO/clear liquids Outcome: Progressing Goal: Oral intake greater than 50% Outcome: Progressing Goal: Oral intake greater 75% Outcome: Progressing Goal: Consume prescribed supplement Outcome: Progressing Goal: Adequate PO fluid intake Outcome: Progressing Goal: Nutrition support goals are met within 48 hrs Outcome: Progressing Goal: Nutrition support is meeting 75% of nutrient needs Outcome: Progressing Goal: Tube feed tolerance Outcome: Progressing Goal: BG 80-180 mg/dL Outcome: Progressing Goal: Lab values WNL Outcome: Progressing Goal: Electrolytes WNL Outcome: Progressing Goal: Promote healing Outcome: Progressing Goal: Maintain stable weight Outcome: Progressing Goal: Reduce weight from edema/fluid Outcome: Progressing Goal: Gradual weight gain Outcome: Progressing Goal: Improve ostomy output Outcome: Progressing Problem: Diabetes Goal: Achieve decreasing blood glucose levels by end of shift Outcome: Progressing Goal: Increase stability of blood glucose readings by end of shift Outcome: Progressing Goal: Decrease in ketones present in urine by end of shift Outcome: Progressing Goal: Maintain electrolyte levels within acceptable range throughout shift Outcome: Progressing Goal: Maintain glucose levels >70mg/dl to <250mg/dl throughout shift Outcome: Progressing Goal: No changes in neurological exam by end of shift Outcome: Progressing Goal: Learn about and adhere to nutrition recommendations by end of shift Outcome: Progressing Goal: Vital signs within normal range for age by end of shift Outcome: Progressing Goal: Increase self care and/or family involovement by end of shift Outcome: Progressing Goal: Receive DSME education by end of shift Outcome: Progressing Ingrid Donald is stable and no longer requiring ICU care. She is under the care of general surgery and is to be transferred to the medical floor for further management. We will be signing off from her care. Bobby Jiménez DO, PhD Internal Medicine PGY1 The patient's goals for the shift include Remain safe and free from injury throughout shift. The clinical goals for the shift include Maintain SBP 160> and >100 Over the shift, the patient did not make progress toward the following goals. Barriers to progression include . Recommendations to address these barriers include . documented in this encounter [facility] Work Phone: 12-02-2022 Hospital Discharge instructions VINNY Dewitt - 12/02/2022 10:29 AM EDT Do not take your blood thinner until you follow up with neurosurgery in 2-3 weeks. documented in this encounter [facility] Work Phone: 12-02-2022 Plan of care note Problem: Nutrition Goal: Less than 5 days NPO/clear liquids Outcome: Progressing Goal: Oral intake greater than 50% Outcome: Progressing Goal: Oral intake greater 75% Outcome: Progressing Goal: Consume prescribed supplement Outcome: Progressing Goal: Adequate PO fluid intake Outcome: Progressing Goal: Nutrition support goals are met within 48 hrs Outcome: Progressing Goal: Nutrition support is meeting 75% of nutrient needs Outcome: Progressing Goal: BG 80-180 mg/dL Outcome: Progressing Goal: Lab values WNL Outcome: Progressing Goal: Electrolytes WNL Outcome: Progressing Goal: Promote healing Outcome: Progressing Goal: Maintain stable weight Outcome: Progressing Goal: Reduce weight from edema/fluid Outcome: Progressing Problem: Diabetes Goal: Achieve decreasing blood glucose levels by end of shift Outcome: Progressing Goal: Increase stability of blood glucose readings by end of shift Outcome: Progressing Goal: Decrease in ketones present in urine by end of shift Outcome: Progressing Goal: Maintain electrolyte levels within acceptable range throughout shift Outcome: Progressing Goal: Maintain glucose levels >70mg/dl to <250mg/dl throughout shift Outcome: Progressing Goal: No changes in neurological exam by end of shift Outcome: Progressing Goal: Learn about and adhere to nutrition recommendations by end of shift Outcome: Progressing Goal: Vital signs within normal range for age by end of shift Outcome: Progressing Goal: Increase self care and/or family involovement by end of shift Outcome: Progressing Goal: Receive DSME education by end of shift Outcome: Progressing The patient's goals for the shift include Remain safe and free from injury throughout shift. The clinical goals for the shift include Maintain blood pressure. [facility] 12-01-2022 Consult note Formatting of th is note is different from the original. Consults Reason For Consult Medical management, HTN History Of Present Illness Ingrid Donald is a 86 y.o. female presenting with pmhx of CKD II-III, NIDDM, Mild intermittent asthma, DLP, pAfib, CAD, HTN, depression who presents to the ER after a mechanical fall. Patient found to have SDH on imaging. Trauma surgery consulted. Repeat stable on following day. Today, her blood pressure was very high but responded to hydralazine. She states she could feel her pulse in her head. These symptoms have now resolved. She is a bit anxious but appears comfortable at this time. Vitals have been repeated multiple times since and appears stable. No other complaints at this time. Past Medical History She has a past medical history of Acute renal failure (ARF) ([facility]), Anemia, Congestive heart failure (CHF) ([facility]), Depression, Diverticulitis of large intestine without perforation or abscess without bleeding (12/14/2015), MELLO (dyspnea on exertion), Essential (primary) hypertension (12/16/2012), Hyperlipidemia, unspecified (12/16/2012), Localized edema (09/07/2021), Malignant neoplasm of colon, unspecified ([facility]), Obstructive sleep apnea (adult) (pediatric), Other forms of dyspnea (07/18/2018), Personal history of other diseases of the circulatory system (12/25/2019), Personal history of other diseases of the digestive system, Personal history of other diseases of the musculoskeletal system and connective tissue (11/30/2020), Personal history of other diseases of the respiratory system (11/24/2013), Personal history of other diseases of urinary system (12/25/2019), Personal history of other mental and behavioral disorders, Personal history of other specified conditions (06/03/2014), Personal history of other specified conditions (06/03/2014), Personal history of other specified conditions (01/04/2021), Pleural effusion, not elsewhere classified (06/15/2014), Rash and other nonspecific skin eruption (07/09/2013), Shortness of breath (11/25/2018), and Vitamin B12 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 Surgical History She has a past surgical history that includes Coronary angioplasty with stent (07/14/2016); Appendectomy (07/09/2013); Colonoscopy (07/09/2013); and Hysterectomy (07/09/2013). Social History She reports that she has never smoked. She has never used smokeless tobacco. She reports that she does not currently use alcohol. She reports that she does not use drugs. Family History Family History Problem Relation Name Age of Onset Coronary artery disease Mother Diabetes Mother Coronary artery disease Father Diabetes Father Allergies Morphine and Ibuprofen Review of Systems Review of Systems Constitutional: Negative for chills, fatigue and fever. HENT: Negative for congestion, ear pain, facial swelling, hearing loss and trouble swallowing. Eyes: Negative for photophobia, pain, redness and visual disturbance. Respiratory: Negative for cough, chest tightness, shortness of breath and wheezing. Cardiovascular: Negative for chest pain, palpitations and leg swelling. Gastrointestinal: Negative for abdominal distention, abdominal pain and nausea. Endocrine: Negative for cold intolerance, heat intolerance, polydipsia and polyuria. Genitourinary: Negative for difficulty urinating, frequency and hematuria. Skin: Negative for color change, rash and wound. Neurological: Negative for dizziness, light-headedness, numbness and headaches. Psychiatric/Behavioral: Negative for agitation, confusion and suicidal ideas. Physical Exam GENERAL: no distress, alert and cooperative HEENT: Normal Inspection, Mucous membranes moist, No JVD, No Lymphadenopathy, b/l anterior facial ecchymosis CARDIOVASCULAR: RRR, no murmurs, 2+ equal pulses of the extremities, normal S1 and S 2 RESPIRATORY: Patent airways, CTAB, normal breath sounds with good chest expansion, thorax symmetric, No Wheezes, Rales or Rhonchi ABDOMEN: Soft, Non-Tender, Normal Bowel Sounds, No Distention SKIN: Warm and dry, no lesions, no rashes EXTREMITIES: normal extremities, no cyanosis edema, contusions or wounds, no clubbing NEURO: A&O x 3, CN II-XII grossly intact PSYCH: Appropriate mood and behavior Last Recorded Vitals BP 164/73 Pulse 62 Temp 36.5 C (97.7 F) (Temporal) Resp 20 Wt 84 kg (185 lb 3 oz) SpO2 97% Relevant Results Lab Results Component Value Date GLUCOSE 123 (H) 11/30/2022 CALCIUM 9.3 11/30/2022 NA 141 11/30/2022 K 4.6 11/30/2022 CO2 24 11/30/2022 CL 109 (H) 11/30/2022 BUN 27 (H) 11/30/2022 CREATININE 1.49 (H) 11/30/2022 Lab Results Component Value Date WBC 7.9 11/30/2022 HGB 11.7 (L) 11/30/2022 HCT 37.6 11/30/2022 MCV 92 11/30/2022 PLT 151 11/30/2022 Assessment/Plan Medications prior to hospitalization 1.) [facility] fall with head trauma and SDH - defer to trauma service - no focal deficits. - repeat stable 2.) HTN - Cardiology also following for bradycardia - currently NSR at 60. Carvedilol on hold for HR On Nifedipine as well now. On home dose losartan Appears euvolemic. Defer diuretic to surgery. 3.) CKD - At baseline. Cr. Baseline appears to be around 1.5 4.) h/o CAD - BB held for bradycardia - ASA held for SDH - Statin 5.) h/o asthma - on home dose singular - no issues 6.) h/o A/D On celexa home dose DVT Proph SCDs Pharm DVT proph contraindicated with SDH Leobardo Garrison DO [facility] Work Phone: 12-01-2022 Consult note Formatting of th is note is different from the original. Consults Reason For Consult Medical management, HTN History Of Present Illness Ingrid Donald is a 86 y.o. female presenting with pmhx of CKD II-III, NIDDM, Mild intermittent asthma, DLP, pAfib, CAD, HTN, depression who presents to the ER after a mechanical fall. Patient found to have SDH on imaging. Trauma surgery consulted. Repeat stable on following day. Today, her blood pressure was very high but responded to hydralazine. She states she could feel her pulse in her head. These symptoms have now resolved. She is a bit anxious but appears comfortable at this time. Vitals have been repeated multiple times since and appears stable. No other complaints at this time. Past Medical History She has a past medical history of Acute renal failure (ARF) (CMS/HCC), Anemia, Congestive heart failure (CHF) ([facility]), Depression, Diverticulitis of large intestine without perforation or abscess without bleeding (12/14/2015), MELLO (dyspnea on exertion), Essential (primary) hypertension (12/16/2012), Hyperlipidemia, unspecified (12/16/2012), Localized edema (09/07/2021), Malignant neoplasm of colon, unspecified ([facility]), Obstructive sleep apnea (adult) (pediatric), Other forms of dyspnea (07/18/2018), Personal history of other diseases of the circulatory system (12/25/2019), Personal history of other diseases of the digestive system, Personal history of other diseases of the musculoskeletal system and connective tissue (11/30/2020), Personal history of other diseases of the respiratory system (11/24/2013), Personal history of other diseases of urinary system (12/25/2019), Personal history of other mental and behavioral disorders, Personal history of other specified conditions (06/03/2014), Personal history of other specified conditions (06/03/2014), Personal history of other specified conditions (01/04/2021), Pleural effusion, not elsewhere classified (06/15/2014), Rash and other nonspecific skin eruption (07/09/2013), Shortness of breath (11/25/2018), and Vitamin B12 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 Surgical History She has a past surgical history that includes Coronary angioplasty with stent (07/14/2016); Appendectomy (07/09/2013); Colonoscopy (07/09/2013); and Hysterectomy (07/09/2013). Social History She reports that she has never smoked. She has never used smokeless tobacco. She reports that she does not currently use alcohol. She reports that she does not use drugs. Family History Family History Problem Relation Name Age of Onset Coronary artery disease Mother Diabetes Mother Coronary artery disease Father Diabetes Father Allergies Morphine and Ibuprofen Review of Systems Review of Systems Constitutional: Negative for chills, fatigue and fever. HENT: Negative for congestion, ear pain, facial swelling, hearing loss and trouble swallowing. Eyes: Negative for photophobia, pain, redness and visual disturbance. Respiratory: Negative for cough, chest tightness, shortness of breath and wheezing. Cardiovascular: Negative for chest pain, palpitations and leg swelling. Gastrointestinal: Negative for abdominal distention, abdominal pain and nausea. Endocrine: Negative for cold intolerance, heat intolerance, polydipsia and polyuria. Genitourinary: Negative for difficulty urinating, frequency and hematuria. Skin: Negative for color change, rash and wound. Neurological: Negative for dizziness, light-headedness, numbness and headaches. Psychiatric/Behavioral: Negative for agitation, confusion and suicidal ideas. Physical Exam GENERAL: no distress, alert and cooperative HEENT: Normal Inspection, Mucous membranes moist, No JVD, No Lymphadenopathy, b/l anterior facial ecchymosis CARDIOVASCULAR: RRR, no murmurs, 2+ equal pulses of the extremities, normal S1 and S 2 RESPIRATORY: Patent airways, CTAB, normal breath sounds with good chest expansion, thorax symmetric, No Wheezes, Rales or Rhonchi ABDOMEN: Soft, Non-Tender, Normal Bowel Sounds, No Distention SKIN: Warm and dry, no lesions, no rashes EXTREMITIES: normal extremities, no cyanosis edema, contusions or wounds, no clubbing NEURO: A&O x 3, CN II-XII grossly intact PSYCH: Appropriate mood and behavior Last Recorded Vitals BP 164/73 Pulse 62 Temp 36.5 C (97.7 F) (Temporal) Resp 20 Wt 84 kg (185 lb 3 oz) SpO2 97% Relevant Results Lab Results Component Value Date GLUCOSE 123 (H) 11/30/2022 CALCIUM 9.3 11/30/2022 NA 141 11/30/2022 K 4.6 11/30/2022 CO2 24 11/30/2022 CL 109 (H) 11/30/2022 BUN 27 (H) 11/30/2022 CREATININE 1.49 (H) 11/30/2022 Lab Results Component Value Date WBC 7.9 11/30/2022 HGB 11.7 (L) 11/30/2022 HCT 37.6 11/30/2022 MCV 92 11/30/2022 PLT 151 11/30/2022 Assessment/Plan [facility]ations prior to [facility] to [facility] service - no focal deficits. - repeat stable 2.) HTN - Cardiology also following for bradycardia - currently NSR at 60. Carvedilol on hold for HR On Nifedipine as well now. On home dose losartan Appears euvolemic. Defer diuretic to surgery. 3.) CKD - At baseline. Cr. Baseline appears to be around 1.5 4.) h/o CAD - BB held for bradycardia - ASA held for SDH - Statin 5.) h/o asthma - on home dose singular - no issues 6.) h/o A/D On celexa home dose DVT Proph SCDs Pharm DVT proph contraindicated with SDH Leobardo Garrison DO Nutrition Note Reason for Assessment Reason for Assessment: Admission nursing screening Recommendation(s) Continue regular diet to encourage intake, monitor for possible supplement need Subjective Energy Intake: Good > 75 % Food and Nutrient History: Pt is on a regular diet and eating well. Objective Per Flowsheet Percent Meal intake: 100 Dietary Orders (From admission, onward) Start Ordered 11/30/22 0501 Adult diet Regular Diet effective now Question: Diet type Answer: Regular 11/30/22 0500 11/30/22 0208 May Participate in Room Service Once Question: . Answer: Yes 11/30/22 021 Independent Results from last 7 days Lab Units 11/30/22 0657 11/29/22 1734 GLUCOSE mg/dL 123* 119* SODIUM mmol/L 141 140 POTASSIUM mmol/L 4.6 4.3 CHLORIDE mmol/L 109* 106 CO2 mmol/L 24 27 BUN mg/dL 27* 30* CREATININE mg/dL 1.49* 1.57* EGFR mL/min/1.73m*2 34* 32* CALCIUM mg/dL 9.3 9.2 Lab Results Component Value Date HGBA1C 5.8 (A) 06/26/2022 HGBA1C 6.9 (A) 08/01/2021 HGBA1C 7.2 (A) 11/23/2020 Results from last 7 days Lab Units 11/30/22 0758 11/30/22 0248 11/29/22 2143 POCT GLUCOSE mg/dL 126* 122* 105* GI per flowsheet: Gastrointestinal Gastrointestinal (WDL): Within Defined Limits Abdomen Inspection: Soft, Flat Abdominal Tenderness: Soft Bowel Sounds: All quadrants Bowel Sounds (All Quadrants): Active Bowel Incontinence: No Last bowel movement documented: PMH: Fall/abrasions;ARF; CHF;Anemia;depression; HTN; diverticulitis; colon cancer; NILDA GERD Allergies: Morphine and Ibuprofen Anthropometrics: Height: 149.9 cm (4' 11.02) Weight: 84 kg (185 lb 3 oz) BMI (Calculated): 37.38 IBW: 45 kg %IBW: 189 % Estimated Nutritional Needs: Total Energy Estimated Needs (kCal): (0391-2578) Method for Estimating Needs: 26-30 malvin kg of IBW Total Protein Estimated Needs (g): (45-54) Method for Estimating Needs: 1-1.2 ngm kg of IBW Total Fluid Estimated Needs (mL): (900-1350 as medically indicated) Nutrition Focused Physical Findings: Orbital Fat Pads: Defer (pt was not available) Edema Edema Location: lower ext Pain Score: 0 - No pain Nutrition Diagnosis Patient has Nutrition Diagnosis: Yes New Nutrition Diagnosis 1: Altered GI function Related to (1): compromised exocrine function As Evidenced by (1): abnormal renal panel Obese Diagnosis Status (2): Ongoing Related to (2): excessive energy intake and physical inactivity As Evidenced by (2): obesity grade II BMI 37.4 Intervention: Individualized Nutrition Prescription Provided for : Continue regular diet to encourage intake, monitor for possible supplement need Nutrition Monitoring and Evaluation Weights Labs PO intake Goals: oral intake >75% of meals, adequate PO fluid intake, and decreased weight from edema/fluid Progress towards goals: Education Documentation No documentation found. Time Spent (min): 45 minutes Last Date of Nutrition Visit: 11/30/22 Nutrition Follow-Up Needed?: 3-8 days Follow up Comment: 12/07 MZ Associated Order(s): Inpatient consult to Cardiology Inpatient consult to Cardiology Consult performed by: Fatuma Starr DO Consult ordered by: Mariah Burgos APRN-NUDE [employer] Reason for consult: Bradycardia History Of Present Illness: This is an 86-year-old female with a history of paroxysmal atrial fibrillation. She is being seen today in consultation for evaluation of bradycardia. The patient suffered a fall yesterday and struck her head on the ground. She denies having any dizziness or syncope prior to the fall, but states that she tripped on a curb. She has established cardiology care in [facility] and has had no recent cardiac symptoms. No complaints of palpitations, chest pain, shortness of breath, dizziness, or syncope. Past medical history: Hypertension Paroxysmal atrial fibrillation Diabetes mellitus Chronic kidney disease Hyperlipidemia History of colon cancer History of anemia Coronary artery disease with previous NSTEMI and stent placement Review of Systems Other review of systems negative Social History: She reports that she has never smoked. She has never used smokeless tobacco. She reports that she does not currently use alcohol. She reports that she does not use drugs. Family History: Family History Problem Relation Name Age of Onset Coronary artery disease Mother Diabetes Mother Coronary artery disease Father Diabetes Father Allergies: Morphine and Ibuprofen Medications: Current Facility-Administered Medications Medication Dose Route Frequency Provider Last Rate Last Admin acetaminophen (Tylenol) tablet 975 mg 975 mg oral q8h [facility] Sintia Hernandez PA-C 975 mg at 11/30/22 0600 amLODIPine (Norvasc) tablet 5 mg 5 mg oral Daily Sintia Hernandez PA-C 5 mg at 11/30/22 0809 atorvastatin (Lipitor) tablet 80 mg 80 mg oral Daily Sintia Hernandez PA-C 80 mg at 11/30/22 0809 buPROPion XL (Wellbutrin XL) 24 hr tablet 300 mg 300 mg oral Daily Sintia Hernandez PA-C citalopram (CeleXA) tablet 40 mg 40 mg oral q24h Sintia Hernandez PA-C 40 mg at 11/30/22 0812 dextrose 10 % in water (D10W) infusion 0.3 g/kg/hr intravenous Once PRN Sintia Hernandez PA-C dextrose 50 % injection 25 g 25 g intravenous q15 min PRN Sintia Hernandez PA-C flu vaccine, quadrivalent, high-dose, preservative free, age 65y+ (FLUZONE) 0.7 mL intramuscular During hospitalization Kyra Perez DO [Held by provider] furosemide (Lasix) tablet 40 mg 40 mg oral Daily Sintia Hernandez PA-C glucagon (Glucagen) injection 1 mg 1 mg intramuscular q15 min PRN Sintia Hernandez PA-C hydrALAZINE (Apresoline) injection 5 mg 5 mg intravenous q6h PRN Sintia Hernandez PA-C insulin lispro (HumaLOG) injection 0-10 Units 0-10 Units subcutaneous TID with meals iSntia Hernandez PA-C losartan (Cozaar) tablet 100 mg 100 mg oral Daily Sintia Hernandez PA-C 100 mg at 11/30/22 0807 metoprolol tartrate (Lopressor) injection 5 mg 5 mg intravenous q6h PRN Sintia Hernandez PA-C montelukast (Singulair) tablet 10 mg 10 mg oral Nightly Sintia Hernandez PA-C niCARdipine (Cardene) 40 mg in sodium chloride 200 mL (0.2 mg/mL) infusion (premix) 2.5-15 mg/hr intravenous Continuous Corbin Bryan MD Stopped at 11/30/22 0355 oxyCODONE (Roxicodone) immediate release tablet 10 mg 10 mg oral q4h PRN Sintia Hernandez PA-C oxyCODONE (Roxicodone) immediate release tablet 5 mg 5 mg oral q4h PRN Sintia Hernandez PA-C pantoprazole (ProtoNix) EC tablet 40 mg 40 mg oral Daily before breakfast Sintia Hernandez PA-C 40 mg at 11/30/22 0811 Last Recorded Vitals: Vitals: 11/30/22 0900 11/30/22 1000 11/30/22 1050 11/30/22 1100 BP: 140/82 136/62 114/58 BP Location: Patient Position: Pulse: 53 57 50 Resp: 18 15 11 Temp: TempSrc: SpO2: 93% 94% 96% Weight: 84 kg (185 lb 3 oz) Height: Physical Exam: General Appearance: Alert, oriented, no distress Skin: Warm and dry Head and Neck: No elevation of JVP, no carotid bruits. Marked periorbital ecchymosis Cardiac Exam: Rhythm is regular, S1 and S2 are normal, no murmur S3 or S4 Lungs: Clear to auscultation Extremities: no edema Neurologic: No focal deficits Psychiatric: Appropriate mood and behavior Last Labs: CBC - Lab Results Component Value Date WBC 7.9 11/30/2022 HGB 11.7 (L) 11/30/2022 HCT 37.6 11/30/2022 MCV 92 11/30/2022 PLT 151 11/30/2022 CMP - Lab Results Component Value Date CALCIUM 9.3 11/30/2022 LIPID PANEL - No results found for: CHOL, TRIG, HDL, CHHDL, LDLF, VLDL, NHDL RENAL FUNCTION PANEL - Lab Results Component Value Date GLUCOSE 123 (H) 11/30/2022 NA 141 11/30/2022 K 4.6 11/30/2022 CL 109 (H) 11/30/2022 CO2 24 11/30/2022 ANIONGAP 13 11/30/2022 BUN 27 (H) 11/30/2022 CREATININE 1.49 (H) 11/30/2022 CALCIUM 9.3 11/30/2022 No results found for: BNP, HGBA1C No results found for this or any previous visit. Test Review: I have personally review the diagnostic testing: EKG: Sinus rhythm, no acute ischemic changes. Telemetry review shows sinus rhythm with periods of sinus bradycardia, asymptomatic Assessment/Plan: 1. Sinus bradycardia: This patient has asymptomatic sinus bradycardia on telemetry. Her heart rate has been in the 40s and 50s, and she has been entirely asymptomatic. Based on the description of the events surrounding the fall yesterday, I do not feel that this was related to bradycardia. The patient has established cardiology care in [facility] and is going to follow-up after hospital discharge. Fatuma Starr DO Associated Order(s): IP CONSULT TO NEUROSURGERY I have reviewed and discussed this patient with the advanced practitioner. I have personally reviewed all the available imaging studies. I agree with the assessment and the plan. Fatuma Leal MD, FAANS, FACS Board Certified Neurosurgeon [facility] [employer] Mechan[employer] of Neurological Surgery [facility] [employer] Office: Reason For Consult SDH History Of Present Illness Ingrid Donald is a 86 y.o. female presenting to [facility] ED after mechanical fall (stepped off curb and fell onto face). She was on anticoagulant (Eliquis for Afib). She admitted to mild headache upon arrival to ED. CT Head imaging reviewed and demonstrates left falx subdural hematoma (SDH). Repeat imaging demonstrates stability of SDH. She currently denies headache, vision changes, seizure activity, nausea, weakness, cognitive changes. She states she lives in [place], [place], and was in [place] for a meeting. Past Medical History She has a past medical history of Acute renal failure (ARF) ([facility]), Anemia, Congestive heart failure (CHF) ([facility]), Depression, Diverticulitis of large intestine without perforation or abscess without bleeding (12/14/2015), MELLO (dyspnea on exertion), Essential (primary) hypertension (12/16/2012), Hyperlipidemia, unspecified (12/16/2012), Localized edema (09/07/2021), Malignant neoplasm of colon, unspecified ([facility]), Obstructive sleep apnea (adult) (pediatric), Other forms of dyspnea (07/18/2018), Personal history of other diseases of the circulatory system (12/25/2019), Personal history of other diseases of the digestive system, Personal history of other diseases of the musculoskeletal system and connective tissue (11/30/2020), Personal history of other diseases of the respiratory system (11/24/2013), Personal history of other diseases of urinary system (12/25/2019), Personal history of other mental and behavioral disorders, Personal history of other specified conditions (06/03/2014), Personal history of other specified conditions (06/03/2014), Personal history of other specified conditions (01/04/2021), Pleural effusion, not elsewhere classified (06/15/2014), Rash and other nonspecific skin eruption (07/09/2013), Shortness of breath (11/25/2018), and Vitamin B12 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 Surgical History She has a past surgical history that includes Coronary angioplasty with stent (07/14/2016); Appendectomy (07/09/2013); Colonoscopy (07/09/2013); and Hysterectomy (07/09/2013). Social History She reports that she has never smoked. She has never used smokeless tobacco. She reports that she does not currently use alcohol. She reports that she does not use drugs. Family History Family History Problem Relation Name Age of Onset Coronary artery disease Mother Diabetes Mother Coronary artery disease Father Diabetes Father Allergies Morphine and Ibuprofen Review of Systems ROS x 10 is negative unless documented above in HPI Physical Exam Well nourished, well developed female, resting in ICU bed A&O x 3, speech clear / fluent EOMI, PERRL, no facial droop, tongue midline, palate symmetric Skin: warm / dry. Multiple facial ecchymoses Thorax midline, chest expansion symmetric Abdomen is not distended BIRD readily, no pronator drift, finger - nose intact No urinary incontinence Last Recorded Vitals Blood pressure 134/62, pulse 52, temperature 36.5 C (97.7 F), temperature source Tympanic, resp. rate 25, height 1.499 m (4' 11), weight 84 kg (185 lb 3 oz), SpO2 94 %. Relevant Results Results for orders placed or performed during the hospital encounter of 11/29/22 (from the past 24 hour(s)) CBC and Auto Differential Result Value Ref Range WBC 8.0 4.4 - 11.3 x10*3/uL nRBC 0.0 0.0 - 0.0 /100 WBCs RBC 4.32 4.00 - 5.20 x10*6/uL Hemoglobin 12.4 12.0 - 16.0 g/dL Hematocrit 39.3 36.0 - 46.0 % MCV 91 80 - 100 fL MCH 28.7 26.0 - 34.0 pg MCHC 31.6 (L) 32.0 - 36.0 g/dL RDW 15.4 (H) 11.5 - 14.5 % Platelets 147 (L) 150 - 450 x10*3/uL MPV 12.0 (H) 7.5 - 11.5 fL Neutrophils % 56.5 40.0 - 80.0 % Immature Granulocytes %, Automated 0.4 0.0 - 0.9 % Lymphocytes % 29.1 13.0 - 44.0 % Monocytes % 10.9 2.0 - 10.0 % Eosinophils % 2.6 0.0 - 6.0 % Basophils % 0.5 0.0 - 2.0 % Neutrophils Absolute 4.52 1.60 - 5.50 x10*3/uL Immature Granulocytes Absolute, Automated 0.03 0.00 - 0.50 x10*3/uL Lymphocytes Absolute 2.33 0.80 - 3.00 x10*3/uL Monocytes Absolute 0.87 (H) 0.05 - 0.80 x10*3/uL Eosinophils Absolute 0.21 0.00 - 0.40 x10*3/uL Basophils Absolute 0.04 0.00 - 0.10 x10*3/uL Basic metabolic panel Result Value Ref Range Glucose 119 (H) 74 - 99 mg/dL Sodium 140 136 - 145 mmol/L Potassium 4.3 3.5 - 5.3 mmol/L Chloride 106 98 - 107 mmol/L Bicarbonate 27 21 - 32 mmol/L Anion Gap 11 10 - 20 mmol/L Urea Nitrogen 30 (H) 6 - 23 mg/dL Creatinine 1.57 (H) 0.50 - 1.05 mg/dL eGFR 32 (L) >60 mL/min/1.73m*2 Calcium 9.2 8.6 - 10.3 mg/dL Protime-INR Result Value Ref Range Protime 15.4 (H) 9.8 - 12.8 seconds INR 1.4 (H) 0.9 - 1.1 Type and Screen Result Value Ref Range ABO TYPE O Rh TYPE POS ANTIBODY SCREEN NEG POCT GLUCOSE Result Value Ref Range POCT Glucose 105 (H) 74 - 99 mg/dL POCT GLUCOSE Result Value Ref Range POCT Glucose 122 (H) 74 - 99 mg/dL CT head wo IV contrast: Images reviewed Result Date: 11/29/2022 Interpreted By: Michael Sharp, Persistent hyperdense thickening along the anterior aspect of the interhemispheric fissure compatible with acute subdural hemorrhage measuring up to 3 mm in maximum thickness, similar compared to prior imaging. No additional new areas of hemorrhage are evident. Nonspecific scattered white matter hypodensities, which may represent sequela of small vessel ischemia. Redemonstrated frontal scalp swelling with no underlying depressed calvarial fracture. MACRO: None. Signed by: Michael Sharp 11/29/2022 11:[address] head, C Spine W O contrast trauma protocol: Images reviewed Result Date: 11/29/2022 Interpreted By: Forrest Drew Acute subdural hematoma along the interhemispheric fissure measuring up to 0.3 cm in thickness. No midline shift. No acute fracture or dislocation in the facial and cranial bones. No acute fracture or traumatic subluxation in the cervical spine. I discussed the findings by phone with Dr. Bryan at 4:45 p.m. on 11/30/2019 Signed by: Forrest Drew 11/29/2022 4:54 PM Scheduled medications acetaminophen, 975 mg, oral, q8h SEBAS amLODIPine, 5 mg, oral, Daily atorvastatin, 80 mg, oral, Daily buPROPion XL, 300 mg, oral, Daily citalopram, 40 mg, oral, q24h influenza, 0.7 mL, intramuscular, During hospitalization [Held by provider] furosemide, 40 mg, oral, Daily insulin lispro, 0-10 Units, subcutaneous, TID with meals losartan, 100 mg, oral, Daily montelukast, 10 mg, oral, Nightly pantoprazole, 40 mg, oral, Daily before breakfast Continuous medications niCARdipine, 2.5-15 mg/hr, Last Rate: Stopped (11/30/22 0355) PRN medications PRN medications: dextrose 10 % in water (D10W), dextrose, glucagon, hydrALAZINE, metoprolol, oxyCODONE, oxyCODONE Assessment/Plan 86 yo female with traumatic SDH, stable on repeat imaging. No neuro deficits on exam. Non-surgical Discussed with Dr. Fatuma Leal: - Continue medical management with HOB > 30 degrees, SBP < 160, avoid anticoagulation until resolution of SDH - Follow up with me in 2 - [address] Head at facility near [place] prior to visit. Discussed with patient who is agreeable with plan. I spent > 35 minutes in the professional and overall care of this patient. Erica Thompson, DIRECTOR CAREER SERVICES-NUDE MODEL Consults [facility] Pulmonary and Critical Care Medicine History and Physical Subjective Patient is a 86 y.o. female admitted on 11/29/2022 2:27 PM with chief complaint of mechanical fall. HPI: Patient is an 86-year-old female with a past medical history of CHF, diverticulitis, CKD, hypertension, hyperlipidemia, colon cancer (in remission), and atrial fibrillation on AC who presented to the ED via EMS after suffering a mechanical fall after eating dinner and stepping down from a curb at a restaurant. Critical care team was consulted for comanagement of patient while she is in the ICU for subdural hematoma. Per patient she was out to dinner earlier today with her [id number]. They completed their meal and were walking out of the restaurant when she missed a step coming down off of the curb onto the parking lot and fell face forward. She was unable to break her fall and did hit her head against the concrete. She does have a hematoma on her forehead along with ecchymosis in her bilateral orbits. Patient states that she does have a small headache and she also scraped her right arm. Otherwise not complaining of any other pain. Denies loss of consciousness. States that her [id number] called EMS. Denies any visual changes, nausea, vomiting, and any other focal neurodeficits. Patient was worked up in the ED with both laboratory studies and imaging studies. Type and screen was performed and patient is O-. CMP showed hyperglycemia at 119, elevated BUN at 30, elevated creatinine to 1.57 which appears to be her baseline, and estimated GFR 32. PT/INR was elevated at 1.4 and 15.4 respectively. CBC was performed and showed no anemia, no leukocytosis, and thrombocytopenia 147 which appears to be her baseline. Patient did have a CT C-spine, CT facial bones, and CT head without IV contrast which showed no midline shift. No acute fracture or dislocation in the facial or cranial bones. No acute fracture or traumatic subluxation in the cervical spine. And an acute subdural hematoma along the interhemispheric fissure measuring up to 0.3 cm in thickness. Findings were discussed with neurosurgery on-call, Dr. Leal, who stated the patient can stay at [facility] for further monitoring in the ICU with a repeat CT scan at 2300 and no indication for reversal of her anticoagulation with Kcentra. This was per ED report given to me at time of admission. ED therapeutics consisted of hydralazine IV push 5 mg x 2 for labile blood pressures, and initiation of a Cardene drip. Patient was also given a Boostrix shot and bacitracin ointment which was applied to her right elbow for her cuts. Past Medical History: Past Medical History: Diagnosis Date Acute renal failure (ARF) (CMS/HCC) Anemia Congestive heart failure (CHF) (CMS/HCC) Depression Diverticulitis of large intestine without perforation or abscess without bleeding 12/14/2015 Diverticulitis of large intestine without perforation or abscess without bleeding MELLO (dyspnea on exertion) Essential (primary) hypertension 12/16/2012 Benign essential hypertension Hyperlipidemia, unspecified 12/16/2012 Hyperlipidemia Localized edema 09/07/2021 Lower extremity edema Malignant neoplasm of colon, unspecified (CMS/HCC) Colon cancer Obstructive sleep apnea (adult) (pediatric) Obstructive sleep apnea Other forms of dyspnea 07/18/2018 MELLO (dyspnea on exertion) Personal history of other diseases of the circulatory system 12/25/2019 History of congestive heart failure Personal history of other diseases of the digestive system History of gastroesophageal reflux (GERD) Personal history of other diseases of the musculoskeletal system and connective tissue 11/30/2020 History of back pain Personal history of other diseases of the respiratory system 11/24/2013 History of acute bronchitis Personal history of other diseases of urinary system 12/25/2019 History of acute renal failure Personal history of other mental and behavioral disorders History of depression Personal history of other specified conditions 06/03/2014 History of abdominal pain Personal history of other specified conditions 06/03/2014 History of diarrhea Personal history of other specified conditions 01/04/2021 History of epigastric pain Pleural effusion, not elsewhere classified 06/15/2014 Bilateral pleural effusion Rash and other nonspecific skin eruption 07/09/2013 Rash Shortness of breath 11/25/2018 SOB (shortness of breath) on exertion 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 She has never used smokeless tobacco. She reports that she does not currently use alcohol. She reports that she does not use drugs. Occupational, Home, & Environmental History None stated Scheduled Medications: [START ON 11/30/2022] amLODIPine, 5 mg, oral, Daily atorvastatin, 80 mg, oral, Daily [START ON 11/30/2022] buPROPion XL, 300 mg, oral, Daily carvedilol, 25 mg, oral, q12h [START ON 11/30/2022] citalopram, 40 mg, oral, q24h [Held by provider] furosemide, 40 mg, oral, Daily insulin lispro, 0-10 Units, subcutaneous, TID with meals [START ON 11/30/2022] losartan, 100 mg, oral, Daily montelukast, 10 mg, oral, Nightly [START ON 11/30/2022] pantoprazole, 40 mg, oral, Daily before breakfast Continuous Medications: niCARdipine, 2.5-15 mg/hr, Last Rate: 2.5 mg/hr (11/29/22 1930) PRN Medications: PRN medications: dextrose 10 % in water (D10W), dextrose, glucagon Review of systems: Review of Systems Constitutional: Negative for activity change, appetite change, chills, fever and unexpected weight change. HENT: Positive for facial swelling. Negative for congestion, rhinorrhea and sore throat. Forehead swelling, ecchymosis of bilateral orbits, hematoma over forehead Eyes: Positive for redness. Negative for visual disturbance. Respiratory: Negative for chest tightness and shortness of breath. Cardiovascular: Negative for chest pain and leg swelling. Gastrointestinal: Negative for abdominal distention, abdominal pain, blood in stool, diarrhea, nausea and vomiting. Endocrine: Negative for cold intolerance and heat intolerance. Genitourinary: Negative for dysuria. Musculoskeletal: Negative for myalgias. Right upper extremity pain due to a cut from a fall Skin: Negative for rash. Allergic/Immunologic: Negative for immunocompromised state. Neurological: Positive for headaches. Negative for dizziness and light-headedness. Hematological: Negative for adenopathy. Psychiatric/Behavioral: Negative for behavioral problems. A 10+ point ROS was completed and otherwise negative except as noted above and per HPI. Objective Vitals: Most Recent: Vitals: 11/29/222144 BP: Pulse: 62 Resp: 21 Temp: SpO2: 97% 24hr Min/Max: Temp Min: 36.4 C (97.5 F) Max: 36.4 C (97.5 F) Pulse Min: 49 Max: 72 BP Min: 139/57 Max: 217/89 Resp Min: 15 Max: 33 SpO2 Min: 95 % Max: 100 % LDA: External Urinary Catheter Female (Active) Placement Date/Time: 11/29/22 1900 Hand Hygiene Completed: Yes External Catheter Type: Female Number of days: 0 Vent settings: Currently on room air Hemodynamic parameters for last 24 hours: Labile blood pressures with systolics in the 190s. Patient states that she does have history of hypertension but did not take her meds earlier in the day. Furthermore patient had reading with bradycardia in the 40s. This was not sustained and resolved on its own. No intake or output data in the 24 hours ending 11/29/22 2762 Physical exam: Physical Exam Lab/Radiology/Diagnostic Review: Results for orders placed or performed during the hospital encounter of 11/29/22 (from the past 24 hour(s)) CBC and Auto Differential Result Value Ref Range WBC 8.0 4.4 - 11.3 x10*3/uL nRBC 0.0 0.0 - 0.0 /100 WBCs RBC 4.32 4.00 - 5.20 x10*6/uL Hemoglobin 12.4 12.0 - 16.0 g/dL Hematocrit 39.3 36.0 - 46.0 % MCV 91 80 - 100 fL MCH 28.7 26.0 - 34.0 pg MCHC 31.6 (L) 32.0 - 36.0 g/dL RDW 15.4 (H) 11.5 - 14.5 % Platelets 147 (L) 150 - 450 x10*3/uL MPV 12.0 (H) 7.5 - 11.5 fL Neutrophils % 56.5 40.0 - 80.0 % Immature Granulocytes %, Automated 0.4 0.0 - 0.9 % Lymphocytes % 29.1 13.0 - 44.0 % Monocytes % 10.9 2.0 - 10.0 % Eosinophils % 2.6 0.0 - 6.0 % Basophils % 0.5 0.0 - 2.0 % Neutrophils Absolute 4.52 1.60 - 5.50 x10*3/uL Immature Granulocytes Absolute, Automated 0.03 0.00 - 0.50 x10*3/uL Lymphocytes Absolute 2.33 0.80 - 3.00 x10*3/uL Monocytes Absolute 0.87 (H) 0.05 - 0.80 x10*3/uL Eosinophils Absolute 0.21 0.00 - 0.40 x10*3/uL Basophils Absolute 0.04 0.00 - 0.10 x10*3/uL Basic metabolic panel Result Value Ref Range Glucose 119 (H) 74 - 99 mg/dL Sodium 140 136 - 145 mmol/L Potassium 4.3 3.5 - 5.3 mmol/L Chloride 106 98 - 107 mmol/L Bicarbonate 27 21 - 32 mmol/L Anion Gap 11 10 - 20 mmol/L Urea Nitrogen 30 (H) 6 - 23 mg/dL Creatinine 1.57 (H) 0.50 - 1.05 mg/dL eGFR 32 (L) >60 mL/min/1.73m*2 Calcium 9.2 8.6 - 10.3 mg/dL Protime-INR Result Value Ref Range Protime 15.4 (H) 9.8 - 12.8 seconds INR 1.4 (H) 0.9 - 1.1 Type and Screen Result Value Ref Range ABO TYPE O Rh TYPE POS ANTIBODY SCREEN NEG POCT GLUCOSE Result Value Ref Range POCT Glucose 105 (H) 74 - 99 mg/dL All other labs and Imaging have been personally reviewed. Assessment/Plan Patient is an 86-year-old female with a past medical history of CHF, diverticulitis, CKD, hypertension, hyperlipidemia, colon cancer (in remission), and atrial fibrillation on AC who presented to the ED via EMS after suffering a mechanical fall after eating dinner and stepping down from a curb at a restaurant. Critical care team was consulted for comanagement of patient while she is in the ICU for subdural hematoma and frequent neurochecks. Neuro: #Subdural hematoma #Depression -Case discussed with neurosurgery on-call who recommended admission to the ICU for frequent neurochecks and repeat CT head at 2300. -Pain control with Tylenol -Frequent neurochecks -Continue bupropion Cardiovascular #History of hypertension with labile blood pressures on admission #Episode of bradycardia; abated on its own #Atrial fibrillation on anticoagulation #CHF -Maintain MAPs>65 -Status post 2 doses of hydralazine IV push 5 mg -Continue Cardene drip and goal systolic blood pressure of 160 per neurosurgery -Continuous telemetry for monitoring of bradycardia -Hold anticoagulation -Can consider cardiology consult if bradycardia persists; hold carvedilol in setting of bradycardia -Continue amlodipine and losartan for blood pressure management -Continue atorvastatin for hyperlipidemia Pulmonary: -No acute issues -Continue montelukast GI: -Continue home Protonix Renal: #CKD at baseline (creatinine 1.5) -Avoid nephrotoxic -Monitor CMP Endocrine: -Blood glucose monitoring -Hypoglycemia protocol -Sliding scale insulin Heme/Onc: #History of colon cancer in remission #Anticoagulation use #Hematoma of the forehead and ecchymosis around her orbits bilaterally -Monitor CBC; goal hemoglobin greater than 7; currently not anemic ID: #Cut on right upper extremity secondary to fall -Continue bacitracin to cut -No acute indications for antibiotics. -Monitor for signs and symptoms of infection Skin/MSK: #Right upper extremity pain secondary to mechanical fall -No deformities or signs of fracture ICU CHECK LIST: Antimicrobials: None Oxygen: Room air Feeding: N.p.o. in case of need for procedures Fluids: None Analgesia: Tylenol Sedation: None Thromboprophylaxis: SCDs Ulcer prophylaxis: PPI Glycemic control: Blood glucose monitoring with sliding scale insulin Bowel care: As needed Indwelling catheters: PureWick catheter Lines: Peripheral IVs Code Status: Full code I have personally spent 45 minutes of critical care time, exclusive of time spent on any procedures, in evaluation and management of this critically ill patient s condition mentioned above in the assessment and plan. Brayden Ragsdale MD Pulmonary & Critical Care Attending [id number] Please excuse and typographical or unwanted errors with in this documentation as voice recognition software was used to dictate this note. documented in this encounter [facility] Work Phone: 12-01-2022 Plan of care note The patient's goals for the shift include Remain safe and free from injury throughout shift. The clinical goals for the shift include Maintain blood pressure. Problem: Nutrition Goal: Less than 5 days NPO/clear liquids Outcome: Progressing Goal: Oral intake greater than 50% Outcome: Progressing Goal: Oral intake greater 75% Outcome: Progressing Goal: Consume prescribed supplement Outcome: Progressing Goal: Adequate PO fluid intake Outcome: Progressing Goal: Nutrition support goals are met within 48 hrs Outcome: Progressing Goal: Nutrition support is meeting 75% of nutrient needs Outcome: Progressing Goal: Tube feed tolerance Outcome: Progressing Goal: BG 80-180 mg/dL Outcome: Progressing Goal: Lab values WNL Outcome: Progressing Goal: Electrolytes WNL Outcome: Progressing Goal: Promote healing Outcome: Progressing Goal: Maintain stable weight Outcome: Progressing Goal: Reduce weight from edema/fluid Outcome: Progressing Goal: Gradual weight gain Outcome: Progressing Goal: Improve ostomy output Outcome: Progressing Problem: Diabetes Goal: Achieve decreasing blood glucose levels by end of shift Outcome: Progressing Goal: Increase stability of blood glucose readings by end of shift Outcome: Progressing Goal: Decrease in ketones present in urine by end of shift Outcome: Progressing Goal: Maintain electrolyte levels within acceptable range throughout shift Outcome: Progressing Goal: Maintain glucose levels >70mg/dl to <250mg/dl throughout shift Outcome: Progressing Goal: No changes in neurological exam by end of shift Outcome: Progressing Goal: Learn about and adhere to nutrition recommendations by end of shift Outcome: Progressing Goal: Vital signs within normal range for age by end of shift Outcome: Progressing Goal: Increase self care and/or family involovement by end of shift Outcome: Progressing Goal: Receive DSME education by end of shift Outcome: Progressing [facility] Work Phone: 11-30-2022 Consult note Formatting of th is note is different from the original. Nutrition Note Reason for Assessment Reason for Assessment: Admission nursing screening Recommendation(s) Continue regular diet to encourage intake, monitor for possible supplement need Subjective Energy Intake: Good > 75 % Food and Nutrient History: Pt is on a regular diet and eating well. Objective Per Flowsheet Percent Meal intake: 100 Dietary Orders (From admission, onward) Start Ordered 11/30/22 0501 Adult diet Regular Diet effective now Question: Diet type Answer: Regular 11/30/22 0500 11/30/22 0208 May Participate in Room Service Once Question: . Answer: Yes 11/30/22 0216 Independent Results from last 7 days Lab Units 11/30/22 0657 11/29/22 1734 GLUCOSE mg/dL 123* 119* SODIUM mmol/L 141 140 POTASSIUM mmol/L 4.6 4.3 CHLORIDE mmol/L 109* 106 CO2 mmol/L 24 27 BUN mg/dL 27* 30* CREATININE mg/dL 1.49* 1.57* EGFR mL/min/1.73m*2 34* 32* CALCIUM mg/dL 9.3 9.2 Lab Results Component Value Date HGBA1C 5.8 (A) 06/26/2022 HGBA1C 6.9 (A) 08/01/2021 HGBA1C 7.2 (A) 11/23/2020 Results from last 7 days Lab Units 11/30/22 0758 11/30/22 0248 11/29/22 2143 POCT GLUCOSE mg/dL 126* 122* 105* GI per flowsheet: Gastrointestinal Gastrointestinal (WDL): Within Defined Limits Abdomen Inspection: Soft, Flat Abdominal Tenderness: Soft Bowel Sounds: All quadrants Bowel Sounds (All Quadrants): Active Bowel Incontinence: No Last bowel movement documented: PMH: Fall/abrasions;ARF; CHF;Anemia;depression; HTN; diverticulitis; colon cancer; NILDA GERD Allergies: Morphine and Ibuprofen Anthropometrics: Height: 149.9 cm (4' 11.02) Weight: 84 kg (185 lb 3 oz) BMI (Calculated): 37.38 IBW: 45 kg %IBW: 189 % Estimated Nutritional Needs: Total Energy Estimated Needs (kCal): (7600-6042) Method for Estimating Needs: 26-30 malvin kg of IBW Total Protein Estimated Needs (g): (45-54) Method for Estimating Needs: 1-1.2 ngm kg of IBW Total Fluid Estimated Needs (mL): (900-1350 as medically indicated) Nutrition Focused Physical Findings: Orbital Fat Pads: Defer (pt was not available) Edema Edema Location: lower ext Pain Score: 0 - No pain Nutrition Diagnosis Patient has Nutrition Diagnosis: Yes New Nutrition Diagnosis 1: Altered GI function Related to (1): compromised exocrine function As Evidenced by (1): abnormal renal panel Obese Diagnosis Status (2): Ongoing Related to (2): excessive energy intake and physical inactivity As Evidenced by (2): obesity grade II BMI 37.4 Intervention: Individualized Nutrition Prescription Provided for : Continue regular diet to encourage intake, monitor for possible supplement need Nutrition Monitoring and Evaluation Weights Labs PO intake Goals: oral intake >75% of meals, adequate PO fluid intake, and decreased weight from edema/fluid Progress towards goals: Education Documentation No documentation found. Time Spent (min): 45 minutes Last Date of Nutrition Visit: 11/30/22 Nutrition Follow-Up Needed?: 3-8 days Follow up Comment: 12/07 [facility] 11-30-2022 Plan of care note Ingrid Donald is stable and no longer requiring ICU care. She is under the care of general surgery and is to be transferred to the medical floor for further management. We will be signing off from her care. Bobby Jiménez DO, PhD Internal Medicine PGY1 [facility] Work Phone: 11-30-2022 Consult note Associated Order (s): Inpatient consult to Cardiology Inpatient consult to Cardiology Consult performed by: Fatuma Starr DO Consult ordered by: Mariah Burgos APRN-LOS Reason for consult: Bradycardia History Of Present Illness: This is an 86-year-old female with a history of paroxysmal atrial fibrillation. She is being seen today in consultation for evaluation of bradycardia. The patient suffered a fall yesterday and struck her head on the ground. She denies having any dizziness or syncope prior to the fall, but states that she tripped on a curb. She has established cardiology care in [facility] and has had no recent cardiac symptoms. No complaints of palpitations, chest pain, shortness of breath, dizziness, or syncope. Past medical history: Hypertension Paroxysmal atrial fibrillation Diabetes mellitus Chronic kidney disease Hyperlipidemia History of colon cancer History of anemia Coronary artery disease with previous NSTEMI and stent placement Review of Systems Other review of systems negative Social History: She reports that she has never smoked. She has never used smokeless tobacco. She reports that she does not currently use alcohol. She reports that she does not use drugs. Family History: Family History Problem Relation Name Age of Onset Coronary artery disease Mother Diabetes Mother Coronary artery disease Father Diabetes Father Allergies: Morphine and Ibuprofen Medications: Current Facility-Administered Medications Medication Dose Route Frequency Provider Last Rate Last Admin acetaminophen (Tylenol) tablet 975 mg 975 mg oral q8h [facility] Sintia Hernandez PA-C 975 mg at 11/30/22 0600 amLODIPine (Norvasc) tablet 5 mg 5 mg oral Daily Sintia Hernandez PA-C 5 mg at 11/30/22 0809 atorvastatin (Lipitor) tablet 80 mg 80 mg oral Daily Sintia Hernandez PA-C 80 mg at 11/30/22 0809 buPROPion XL (Wellbutrin XL) 24 hr tablet 300 mg 300 mg oral Daily Sintia Hernandez PA-C citalopram (CeleXA) tablet 40 mg 40 mg oral q24h Sintia Hernandez PA-C 40 mg at 11/30/22 0812 dextrose 10 % in water (D10W) infusion 0.3 g/kg/hr intravenous Once PRN Sintia Hernandez PA-C dextrose 50 % injection 25 g 25 g intravenous q15 min PRN Sintia Hernandez PA-C flu vaccine, quadrivalent, high-dose, preservative free, age 65y+ (FLUZONE) 0.7 mL intramuscular During hospitalization Kyra Perez DO [Held by provider] furosemide (Lasix) tablet 40 mg 40 mg oral Daily Sintia Hernandez PA-C glucagon (Glucagen) injection 1 mg 1 mg intramuscular q15 min PRN Sintia Hernandez PA-C hydrALAZINE (Apresoline) injection 5 mg 5 mg intravenous q6h PRN Sintia Hernandez PA-C insulin lispro (HumaLOG) injection 0-10 Units 0-10 Units subcutaneous TID with meals Sintia Hernandez PA-C losartan (Cozaar) tablet 100 mg 100 mg oral Daily Sintia Hernandez PA-C 100 mg at 11/30/22 0807 metoprolol tartrate (Lopressor) injection 5 mg 5 mg intravenous q6h PRN Sintia Hernandez PA-C montelukast (Singulair) tablet 10 mg 10 mg oral Nightly Sintia Hernandez PA-C niCARdipine (Cardene) 40 mg in sodium chloride 200 mL (0.2 mg/mL) infusion (premix) 2.5-15 mg/hr intravenous Continuous Corbin Bryan MD Stopped at 11/30/22 0355 oxyCODONE (Roxicodone) immediate release tablet 10 mg 10 mg oral q4h PRN Sintia Hernandez PA-C oxyCODONE (Roxicodone) immediate release tablet 5 mg 5 mg oral q4h PRN Sintia Hernandez PA-C pantoprazole (ProtoNix) EC tablet 40 mg 40 mg oral Daily before breakfast Sintia NIMCO Hernandez 40 mg at 11/30/22 0811 Last Recorded Vitals: Vitals: 11/30/22 0900 11/30/22 1000 11/30/22 1050 11/30/22 1100 BP: 140/82 136/62 114/58 BP Location: Patient Position: Pulse: 53 57 50 Resp: 18 15 11 Temp: TempSrc: SpO2: 93% 94% 96% Weight: 84 kg (185 lb 3 oz) Height: Physical Exam: General Appearance: Alert, oriented, no distress Skin: Warm and dry Head and Neck: No elevation of JVP, no carotid bruits. Marked periorbital ecchymosis Cardiac Exam: Rhythm is regular, S1 and S2 are normal, no murmur S3 or S4 Lungs: Clear to auscultation Extremities: no edema Neurologic: No focal deficits Psychiatric: Appropriate mood and behavior Last Labs: CBC - Lab Results Component Value Date WBC 7.9 11/30/2022 HGB 11.7 (L) 11/30/2022 HCT 37.6 11/30/2022 MCV 92 11/30/2022 PLT 151 11/30/2022 CMP - Lab Results Component Value Date CALCIUM 9.3 11/30/2022 LIPID PANEL - No results found for: CHOL, TRIG, HDL, CHHDL, LDLF, VLDL, NHDL RENAL FUNCTION PANEL - Lab Results Component Value Date GLUCOSE 123 (H) 11/30/2022 NA 141 11/30/2022 K 4.6 11/30/2022 CL 109 (H) 11/30/2022 CO2 24 11/30/2022 ANIONGAP 13 11/30/2022 BUN 27 (H) 11/30/2022 CREATININE 1.49 (H) 11/30/2022 CALCIUM 9.3 11/30/2022 No results found for: BNP, HGBA1C No results found for this or any previous visit. Test Review: I have personally review the diagnostic testing: EKG: Sinus rhythm, no acute ischemic changes. Telemetry review shows sinus rhythm with periods of sinus bradycardia, asymptomatic Assessment/Plan: 1. Sinus bradycardia: This patient has asymptomatic sinus bradycardia on telemetry. Her heart rate has been in the 40s and 50s, and she has been entirely asymptomatic. Based on the description of the events surrounding the fall yesterday, I do not feel that this was related to bradycardia. The patient has established cardiology care in [facility] and is going to follow-up after hospital discharge. Fatuma Starr DO [facility] Work Phone: 11-30-2022 Plan of care note The patient's goals for the shift include Remain safe and free from injury throughout shift. The clinical goals for the shift include Maintain SBP 160> and >100 Over the shift, the patient did not make progress toward the following goals. Barriers to progression include . Recommendations to address these barriers include . [facility] Work Phone: 11-30-2022 Consult note Associated Order (s): IP CONSULT TO NEUROSURGERY I have reviewed and discussed this patient with the advanced practitioner. I have personally reviewed all the available imaging studies. I agree with the assessment and the plan. Fatuma Leal MD, FAANS, FACS Board Certified Neurosurgeon [facility] [employer] Neurological Surgery [facility] [employer] Office: Reason For Consult SDH History Of Present Illness Ingrid Donald is a 86 y.o. female presenting to [facility] ED after mechanical fall (stepped off curb and fell onto face). She was on anticoagulant (Eliquis for Afib). She admitted to mild headache upon arrival to ED. CT Head imaging reviewed and demonstrates left falx subdural hematoma (SDH). Repeat imaging demonstrates stability of SDH. She currently denies headache, vision changes, seizure activity, nausea, weakness, cognitive changes. She states she lives in [place], [place], and was in [place] for a meeting. Past Medical History She has a past medical history of Acute renal failure (ARF) (CMS/HCC), Anemia, Congestive heart failure (CHF) (CMS/HCC), Depression, Diverticulitis of large intestine without perforation or abscess without bleeding (12/14/2015), MELLO (dyspnea on exertion), Essential (primary) hypertension (12/16/2012), Hyperlipidemia, unspecified (12/16/2012), Localized edema (09/07/2021), Malignant neoplasm of colon, unspecified (CMS/HCC), Obstructive sleep apnea (adult) (pediatric), Other forms of dyspnea (07/18/2018), Personal history of other diseases of the circulatory system (12/25/2019), Personal history of other diseases of the digestive system, Personal history of other diseases of the musculoskeletal system and connective tissue (11/30/2020), Personal history of other diseases of the respiratory system (11/24/2013), Personal history of other diseases of urinary system (12/25/2019), Personal history of other mental and behavioral disorders, Personal history of other specified conditions (06/03/2014), Personal history of other specified conditions (06/03/2014), Personal history of other specified conditions (01/04/2021), Pleural effusion, not elsewhere classified (06/15/2014), Rash and other nonspecific skin eruption (07/09/2013), Shortness of breath (11/25/2018), and Vitamin B12 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 Surgical History She has a past surgical history that includes Coronary angioplasty with stent (07/14/2016); Appendectomy (07/09/2013); Colonoscopy (07/09/2013); and Hysterectomy (07/09/2013). Social History She reports that she has never smoked. She has never used smokeless tobacco. She reports that she does not currently use alcohol. She reports that she does not use drugs. Family History Family History Problem Relation Name Age of Onset Coronary artery disease Mother Diabetes Mother Coronary artery disease Father Diabetes Father Allergies Morphine and Ibuprofen Review of Systems ROS x 10 is negative unless documented above in HPI Physical Exam Well nourished, well developed female, resting in ICU bed A&O x 3, speech clear / fluent EOMI, PERRL, no facial droop, tongue midline, palate symmetric Skin: warm / dry. Multiple facial ecchymoses Thorax midline, chest expansion symmetric Abdomen is not distended BIRD readily, no pronator drift, finger - nose intact No urinary incontinence Last Recorded Vitals Blood pressure 134/62, pulse 52, temperature 36.5 C (97.7 F), temperature source Tympanic, resp. rate 25, height 1.499 m (4' 11), weight 84 kg (185 lb 3 oz), SpO2 94 %. Relevant Results Results for orders placed or performed during the hospital encounter of 11/29/22 (from the past 24 hour(s)) CBC and Auto Differential Result Value Ref Range WBC 8.0 4.4 - 11.3 x10*3/uL nRBC 0.0 0.0 - 0.0 /100 WBCs RBC 4.32 4.00 - 5.20 x10*6/uL Hemoglobin 12.4 12.0 - 16.0 g/dL Hematocrit 39.3 36.0 - 46.0 % MCV 91 80 - 100 fL MCH 28.7 26.0 - 34.0 pg MCHC 31.6 (L) 32.0 - 36.0 g/dL RDW 15.4 (H) 11.5 - 14.5 % Platelets 147 (L) 150 - 450 x10*3/uL MPV 12.0 (H) 7.5 - 11.5 fL Neutrophils % 56.5 40.0 - 80.0 % Immature Granulocytes %, Automated 0.4 0.0 - 0.9 % Lymphocytes % 29.1 13.0 - 44.0 % Monocytes % 10.9 2.0 - 10.0 % Eosinophils % 2.6 0.0 - 6.0 % Basophils % 0.5 0.0 - 2.0 % Neutrophils Absolute 4.52 1.60 - 5.50 x10*3/uL Immature Granulocytes Absolute, Automated 0.03 0.00 - 0.50 x10*3/uL Lymphocytes Absolute 2.33 0.80 - 3.00 x10*3/uL Monocytes Absolute 0.87 (H) 0.05 - 0.80 x10*3/uL Eosinophils Absolute 0.21 0.00 - 0.40 x10*3/uL Basophils Absolute 0.04 0.00 - 0.10 x10*3/uL Basic metabolic panel Result Value Ref Range Glucose 119 (H) 74 - 99 mg/dL Sodium 140 136 - 145 mmol/L Potassium 4.3 3.5 - 5.3 mmol/L Chloride 106 98 - 107 mmol/L Bicarbonate 27 21 - 32 mmol/L Anion Gap 11 10 - 20 mmol/L Urea Nitrogen 30 (H) 6 - 23 mg/dL Creatinine 1.57 (H) 0.50 - 1.05 mg/dL eGFR 32 (L) >60 mL/min/1.73m*2 Calcium 9.2 8.6 - 10.3 mg/dL Protime-INR Result Value Ref Range Protime 15.4 (H) 9.8 - 12.8 seconds INR 1.4 (H) 0.9 - 1.1 Type and Screen Result Value Ref Range ABO TYPE O Rh TYPE POS ANTIBODY SCREEN NEG POCT GLUCOSE Result Value Ref Range POCT Glucose 105 (H) 74 - 99 mg/dL POCT GLUCOSE Result Value Ref Range POCT Glucose 122 (H) 74 - 99 mg/dL CT head wo IV contrast: Images reviewed Result Date: 11/29/2022 Interpreted By: Michael Sharp, Persistent hyperdense thickening along the anterior aspect of the interhemispheric fissure compatible with acute subdural hemorrhage measuring up to 3 mm in maximum thickness, similar compared to prior imaging. No additional new areas of hemorrhage are evident. Nonspecific scattered white matter hypodensities, which may represent sequela of small vessel ischemia. Redemonstrated frontal scalp swelling with no underlying depressed calvarial fracture. MACRO: None. Signed by: Michael Sharp 11/29/2022 11:[address] head, C Spine W O contrast trauma protocol: Images reviewed Result Date: 11/29/2022 Interpreted By: Forrest Drew Acute subdural hematoma along the interhemispheric fissure measuring up to 0.3 cm in thickness. No midline shift. No acute fracture or dislocation in the facial and cranial bones. No acute fracture or traumatic subluxation in the cervical spine. I discussed the findings by phone with Dr. Bryan at 4:45 p.m. on 11/30/2019 Signed by: Forrest Drew 11/29/2022 4:54 PM Scheduled medications acetaminophen, 975 mg, oral, q8h SEBAS amLODIPine, 5 mg, oral, Daily atorvastatin, 80 mg, oral, Daily buPROPion XL, 300 mg, oral, Daily citalopram, 40 mg, oral, q24h influenza, 0.7 mL, intramuscular, During hospitalization [Held by provider] furosemide, 40 mg, oral, Daily insulin lispro, 0-10 Units, subcutaneous, TID with meals losartan, 100 mg, oral, Daily montelukast, 10 mg, oral, Nightly pantoprazole, 40 mg, oral, Daily before breakfast Continuous medications niCARdipine, 2.5-15 mg/hr, Last Rate: Stopped (11/30/22 0355) PRN medications PRN medications: dextrose 10 % in water (D10W), dextrose, glucagon, hydrALAZINE, metoprolol, oxyCODONE, oxyCODONE Assessment/Plan 86 yo female with traumatic SDH, stable on repeat imaging. No neuro deficits on exam. Non-surgical Discussed with Dr. Fatuma Leal: - Continue medical management with HOB > 30 degrees, SBP < 160, avoid anticoagulation until resolution of SDH - Follow up with me in 2 - [address] Head at facility near [place] prior to visit. Discussed with patient who is agreeable with plan. I spent > 35 minutes in the professional and overall care of this patient. Erica Thompson APRN-[employer] [facility] Work Phone: 11-29-2022 Consult note Formatting of th is note is different from the original. Consults [facility] Pulmonary and Critical Care Medicine History and Physical Subjective Patient is a 86 y.o. female admitted on 11/29/2022 2:27 PM with chief complaint of mechanical fall. HPI: Patient is an 86-year-old female with a past medical history of CHF, diverticulitis, CKD, hypertension, hyperlipidemia, colon cancer (in remission), and atrial fibrillation on AC who presented to the ED via EMS after suffering a mechanical fall after eating dinner and stepping down from a curb at a restaurant. Critical care team was consulted for comanagement of patient while she is in the ICU for subdural hematoma. Per patient she was out to dinner earlier today with her [id number]. They completed their meal and were walking out of the restaurant when she missed a step coming down off of the curb onto the parking lot and fell face forward. She was unable to break her fall and did hit her head against the concrete. She does have a hematoma on her forehead along with ecchymosis in her bilateral orbits. Patient states that she does have a small headache and she also scraped her right arm. Otherwise not complaining of any other pain. Denies loss of consciousness. States that her [id number] called EMS. Denies any visual changes, nausea, vomiting, and any other focal neurodeficits. Patient was worked up in the ED with both laboratory studies and imaging studies. Type and screen was performed and patient is O-. CMP showed hyperglycemia at 119, elevated BUN at 30, elevated creatinine to 1.57 which appears to be her baseline, and estimated GFR 32. PT/INR was elevated at 1.4 and 15.4 respectively. CBC was performed and showed no anemia, no leukocytosis, and thrombocytopenia 147 which appears to be her baseline. Patient did have a CT C-spine, CT facial bones, and CT head without IV contrast which showed no midline shift. No acute fracture or dislocation in the facial or cranial bones. No acute fracture or traumatic subluxation in the cervical spine. And an acute subdural hematoma along the interhemispheric fissure measuring up to 0.3 cm in thickness. Findings were discussed with neurosurgery on-call, Dr. Leal, who stated the patient can stay at [facility] for further monitoring in the ICU with a repeat CT scan at 2300 and no indication for reversal of her anticoagulation with Kcentra. This was per ED report given to me at time of admission. ED therapeutics consisted of hydralazine IV push 5 mg x 2 for labile blood pressures, and initiation of a Cardene drip. Patient was also given a Boostrix shot and bacitracin ointment which was applied to her right elbow for her cuts. Past Medical History: Past Medical History: Diagnosis Date Acute renal failure (ARF) (CMS/HCC) Anemia Congestive heart failure (CHF) (CMS/HCC) Depression Diverticulitis of large intestine without perforation or abscess without bleeding 12/14/2015 Diverticulitis of large intestine without perforation or abscess without bleeding MELLO (dyspnea on exertion) Essential (primary) hypertension 12/16/2012 Benign essential hypertension Hyperlipidemia, unspecified 12/16/2012 Hyperlipidemia Localized edema 09/07/2021 Lower extremity edema Malignant neoplasm of colon, unspecified (CMS/HCC) Colon cancer Obstructive sleep apnea (adult) (pediatric) Obstructive sleep apnea Other forms of dyspnea 07/18/2018 MELLO (dyspnea on exertion) Personal history of other diseases of the circulatory system 12/25/2019 History of congestive heart failure Personal history of other diseases of the digestive system History of gastroesophageal reflux (GERD) Personal history of other diseases of the musculoskeletal system and connective tissue 11/30/2020 History of back pain Personal history of other diseases of the respiratory system 11/24/2013 History of acute bronchitis Personal history of other diseases of urinary system 12/25/2019 History of acute renal failure Personal history of other mental and behavioral disorders History of depression Personal history of other specified conditions 06/03/2014 History of abdominal pain Personal history of other specified conditions 06/03/2014 History of diarrhea Personal history of other specified conditions 01/04/2021 History of epigastric pain Pleural effusion, not elsewhere classified 06/15/2014 Bilateral pleural effusion Rash and other nonspecific skin eruption 07/09/2013 Rash Shortness of breath 11/25/2018 SOB (shortness of breath) on exertion 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 She has never used smokeless tobacco. She reports that she does not currently use alcohol. She reports that she does not use drugs. Occupational, Home, & Environmental History None stated Scheduled Medications: [START ON 11/30/2022] amLODIPine, 5 mg, oral, Daily atorvastatin, 80 mg, oral, Daily [START ON 11/30/2022] buPROPion XL, 300 mg, oral, Daily carvedilol, 25 mg, oral, q12h [START ON 11/30/2022] citalopram, 40 mg, oral, q24h [Held by provider] furosemide, 40 mg, oral, Daily insulin lispro, 0-10 Units, subcutaneous, TID with meals [START ON 11/30/2022] losartan, 100 mg, oral, Daily montelukast, 10 mg, oral, Nightly [START ON 11/30/2022] pantoprazole, 40 mg, oral, Daily before breakfast Continuous Medications: niCARdipine, 2.5-15 mg/hr, Last Rate: 2.5 mg/hr (11/29/22 1930) PRN Medications: PRN medications: dextrose 10 % in water (D10W), dextrose, glucagon Review of systems: Review of Systems Constitutional: Negative for activity change, appetite change, chills, fever and unexpected weight change. HENT: Positive for facial swelling. Negative for congestion, rhinorrhea and sore throat. Forehead swelling, ecchymosis of bilateral orbits, hematoma over forehead Eyes: Positive for redness. Negative for visual disturbance. Respiratory: Negative for chest tightness and shortness of breath. Cardiovascular: Negative for chest pain and leg swelling. Gastrointestinal: Negative for abdominal distention, abdominal pain, blood in stool, diarrhea, nausea and vomiting. Endocrine: Negative for cold intolerance and heat intolerance. Genitourinary: Negative for dysuria. Musculoskeletal: Negative for myalgias. Right upper extremity pain due to a cut from a fall Skin: Negative for rash. Allergic/Immunologic: Negative for immunocompromised state. Neurological: Positive for headaches. Negative for dizziness and light-headedness. Hematological: Negative for adenopathy. Psychiatric/Behavioral: Negative for behavioral problems. A 10+ point ROS was completed and otherwise negative except as noted above and per HPI. Objective Vitals: Most Recent: Vitals: 11/29/225 BP: Pulse: 62 Resp: 21 Temp: SpO2: 97% 24hr Min/Max: Temp Min: 36.4 C (97.5 F) Max: 36.4 C (97.5 F) Pulse Min: 49 Max: 72 BP Min: 139/57 Max: 217/89 Resp Min: 15 Max: 33 SpO2 Min: 95 % Max: 100 % LDA: External Urinary Catheter Female (Active) Placement Date/Time: 11/29/221899 Hand Hygiene Completed: Yes External Catheter Type: Female Number of days: 0 Vent settings: Currently on room air Hemodynamic parameters for last 24 hours: Labile blood pressures with systolics in the 190s. Patient states that she does have history of hypertension but did not take her meds earlier in the day. Furthermore patient had reading with bradycardia in the 40s. This was not sustained and resolved on its own. No intake or output data in the 24 hours ending 11/29/22 2708 Physical exam: Physical Exam Lab/Radiology/Diagnostic Review: Results for orders placed or performed during the hospital encounter of 11/29/22 (from the past 24 hour(s)) CBC and Auto Differential Result Value Ref Range WBC 8.0 4.4 - 11.3 x10*3/uL nRBC 0.0 0.0 - 0.0 /100 WBCs RBC 4.32 4.00 - 5.20 x10*6/uL Hemoglobin 12.4 12.0 - 16.0 g/dL Hematocrit 39.3 36.0 - 46.0 % MCV 91 80 - 100 fL MCH 28.7 26.0 - 34.0 pg MCHC 31.6 (L) 32.0 - 36.0 g/dL RDW 15.4 (H) 11.5 - 14.5 % Platelets 147 (L) 150 - 450 x10*3/uL MPV 12.0 (H) 7.5 - 11.5 fL Neutrophils % 56.5 40.0 - 80.0 % Immature Granulocytes %, Automated 0.4 0.0 - 0.9 % Lymphocytes % 29.1 13.0 - 44.0 % Monocytes % 10.9 2.0 - 10.0 % Eosinophils % 2.6 0.0 - 6.0 % Basophils % 0.5 0.0 - 2.0 % Neutrophils Absolute 4.52 1.60 - 5.50 x10*3/uL Immature Granulocytes Absolute, Automated 0.03 0.00 - 0.50 x10*3/uL Lymphocytes Absolute 2.33 0.80 - 3.00 x10*3/uL Monocytes Absolute 0.87 (H) 0.05 - 0.80 x10*3/uL Eosinophils Absolute 0.21 0.00 - 0.40 x10*3/uL Basophils Absolute 0.04 0.00 - 0.10 x10*3/uL Basic metabolic panel Result Value Ref Range Glucose 119 (H) 74 - 99 mg/dL Sodium 140 136 - 145 mmol/L Potassium 4.3 3.5 - 5.3 mmol/L Chloride 106 98 - 107 mmol/L Bicarbonate 27 21 - 32 mmol/L Anion Gap 11 10 - 20 mmol/L Urea Nitrogen 30 (H) 6 - 23 mg/dL Creatinine 1.57 (H) 0.50 - 1.05 mg/dL eGFR 32 (L) >60 mL/min/1.73m*2 Calcium 9.2 8.6 - 10.3 mg/dL Protime-INR Result Value Ref Range Protime 15.4 (H) 9.8 - 12.8 seconds INR 1.4 (H) 0.9 - 1.1 Type and Screen Result Value Ref Range ABO TYPE O Rh TYPE POS ANTIBODY SCREEN NEG POCT GLUCOSE Result Value Ref Range POCT Glucose 105 (H) 74 - 99 mg/dL All other labs and Imaging have been personally reviewed. Assessment/Plan Patient is an 86-year-old female with a past medical history of CHF, diverticulitis, CKD, hypertension, hyperlipidemia, colon cancer (in remission), and atrial fibrillation on AC who presented to the ED via EMS after suffering a mechanical fall after eating dinner and stepping down from a curb at a restaurant. Critical care team was consulted for comanagement of patient while she is in the ICU for subdural hematoma and frequent neurochecks. Neuro: #Subdural hematoma #Depression -Case discussed with neurosurgery on-call who recommended admission to the ICU for frequent neurochecks and repeat CT head at 2300. -Pain control with Tylenol -Frequent neurochecks -Continue bupropion Cardiovascular #History of hypertension with labile blood pressures on admission #Episode of bradycardia; abated on its own #Atrial fibrillation on anticoagulation #CHF -Maintain MAPs>65 -Status post 2 doses of hydralazine IV push 5 mg -Continue Cardene drip and goal systolic blood pressure of 160 per neurosurgery -Continuous telemetry for monitoring of bradycardia -Hold anticoagulation -Can consider cardiology consult if bradycardia persists; hold carvedilol in setting of bradycardia -Continue amlodipine and losartan for blood pressure management -Continue atorvastatin for hyperlipidemia Pulmonary: -No acute issues -Continue montelukast GI: -Continue home Protonix Renal: #CKD at baseline (creatinine 1.5) -Avoid nephrotoxic -Monitor CMP Endocrine: -Blood glucose monitoring -Hypoglycemia protocol -Sliding scale insulin Heme/Onc: #History of colon cancer in remission #Anticoagulation use #Hematoma of the forehead and ecchymosis around her orbits bilaterally -Monitor CBC; goal hemoglobin greater than 7; currently not anemic ID: #Cut on right upper extremity secondary to fall -Continue bacitracin to cut -No acute indications for antibiotics. -Monitor for signs and symptoms of infection Skin/MSK: #Right upper extremity pain secondary to mechanical fall -No deformities or signs of fracture ICU CHECK LIST: Antimicrobials: None Oxygen: Room air Feeding: N.p.o. in case of need for procedures Fluids: None Analgesia: Tylenol Sedation: None Thromboprophylaxis: SCDs Ulcer prophylaxis: PPI Glycemic control: Blood glucose monitoring with sliding scale insulin Bowel care: As needed Indwelling catheters: PureWick catheter Lines: Peripheral IVs Code Status: Full code I have personally spent 45 minutes of critical care time, exclusive of time spent on any procedures, in evaluation and management of this critically ill patient s condition mentioned above in the assessment and plan. Brayden Ragsdale MD Pulmonary & Critical Care Attending P:[phone] Please excuse and typographical or unwanted errors with in this documentation as voice recognition software was used to dictate this note. [facility] Work Phone: 11-29-2022 History and physical note Trauma History and Physical Subjective Patient is a 86 y.o. female admitted on 11/29/2022 2:27 PM Arrival Date: 11/29/22 Arrival Time: 1412 Trauma Activation Level: limited Date of injury: 11/29/22 Time of injury: Immediately prior to arrival HPI: Pt reports that she tripped over the curb and fell face first into the concrete, landing on out-stretched hands. Mechanism of injury: fall Method of Arrival: EMS Prior to arrival: none PRIMARY SURVEY: Airway: intact Breathing: equal breath sounds and unlabored Circulation: pulses intact and equal and no obvious source of hemorrhage Disability: GCS 15, A&Ox3 Exposure/Environment: clothing removed, scattered abrasions notes, no other injuries Procedures: none SECONDARY SURVEY: Past Medical History: Diagnosis Date Acute renal failure (ARF) (CMS/HCC) Anemia Congestive heart failure (CHF) (CMS/HCC) Depression Diverticulitis of large intestine without perforation or abscess without bleeding 12/14/2015 Diverticulitis of large intestine without perforation or abscess without bleeding MELLO (dyspnea on exertion) Essential (primary) hypertension 12/16/2012 Benign essential hypertension Hyperlipidemia, unspecified 12/16/2012 Hyperlipidemia Localized edema 09/07/2021 Lower extremity edema Malignant neoplasm of colon, unspecified (CMS/HCC) Colon cancer Obstructive sleep apnea (adult) (pediatric) Obstructive sleep apnea Other forms of dyspnea 07/18/2018 MELLO (dyspnea on exertion) Personal history of other diseases of the circulatory system 12/25/2019 History of congestive heart failure Personal history of other diseases of the digestive system History of gastroesophageal reflux (GERD) Personal history of other diseases of the musculoskeletal system and connective tissue 11/30/2020 History of back pain Personal history of other diseases of the respiratory system 11/24/2013 History of acute bronchitis Personal history of other diseases of urinary system 12/25/2019 History of acute renal failure Personal history of other mental and behavioral disorders History of depression Personal history of other specified conditions 06/03/2014 History of abdominal pain Personal history of other specified conditions 06/03/2014 History of diarrhea Personal history of other specified conditions 01/04/2021 History of epigastric pain Pleural effusion, not elsewhere classified 06/15/2014 Bilateral pleural effusion Rash and other nonspecific skin eruption 07/09/2013 Rash Shortness of breath 11/25/2018 SOB (shortness of breath) on exertion 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, pernicious Past Surgical History: Procedure Laterality Date APPENDECTOMY 07/09/2013 Appendectomy COLONOSCOPY 07/09/2013 Complete Colonoscopy CORONARY ANGIOPLASTY WITH STENT PLACEMENT 07/14/2016 Cath Stent Placement HYSTERECTOMY 07/09/2013 Hysterectomy (Not in a hospital admission) Morphine and Ibuprofen Social History Tobacco Use Smoking status: Never Smokeless tobacco: Never Vaping Use Vaping Use: Never used Substance Use Topics Alcohol use: Not Currently Drug use: Never Family History Problem Relation Name Age of Onset Coronary artery disease Mother Diabetes Mother Coronary artery disease Father Diabetes Father Review of Systems: Eyes: negative for visual disturbance Respiratory: negative for SOB Cardiovascular: negative for chest pain, palpitations, and syncope Gastrointestinal: negative for abdominal pain, nausea, and vomiting Musculoskeletal: negative for back pain, neck pain, and wrist pain Neurological: negative for dizziness, headaches, memory problems, paresthesia, and weakness Objective Vitals: Most Recent: Vitals: 11/29/22 1734 BP: (!) 202/84 Pulse: 68 Resp: 18 Temp: SpO2: 98% 24hr Min/Max: Temp Min: 36.4 C (97.5 F) Max: 36.4 C (97.5 F) Pulse Min: 59 Max: 68 BP Min: 118/63 Max: 202/84 Resp Min: 16 Max: 18 SpO2 Min: 98 % Max: 100 % Hemodynamic parameters for last 24 hours: No intake/output data recorded. Physical exam: Physical Exam Constitutional: General: She is not in acute distress. Appearance: Normal appearance. She is not ill-appearing. HENT: Head: No raccoon eyes or Black's sign. Jaw: No tenderness, pain on movement or malocclusion. Comments: Rt frontal scalp hematoma, soft, non-TTP Right Ear: External ear normal. Left Ear: External ear normal. Nose: No nasal deformity or nasal tenderness. Mouth/Throat: Mouth: Mucous membranes are moist. No injury. Dentition: Normal dentition. Eyes: Extraocular Movements: Extraocular movements intact. Pupils: Pupils are equal, round, and reactive to light. Comments: Rt periorbital ecchymosis and edema Neck: Trachea: No tracheal deviation. Cardiovascular: Rate and Rhythm: Normal rate and regular rhythm. Pulses: Normal pulses. Heart sounds: No murmur heard. Pulmonary: Effort: Pulmonary effort is normal. No respiratory distress. Breath sounds: Normal breath sounds and air entry. Chest: Comments: No chest wall tenderness or crepitus, no ecchymosis or hematoma Abdominal: General: Abdomen is flat. Bowel sounds are normal. There is no distension. Palpations: Abdomen is soft. Tenderness: There is no abdominal tenderness. Genitourinary: Comments: Pelvis stable to AP and lateral compression Musculoskeletal: General: No swelling, tenderness or deformity. Normal range of motion. Right wrist: No deformity or tenderness. Normal range of motion. Left wrist: No deformity or tenderness. Normal range of motion. Cervical back: Normal range of motion. No spinous process tenderness or muscular tenderness. Skin: General: Skin is warm and dry. Coloration: Skin is not pale. Findings: Abrasion (Rt elbow, Rt knee) present. Neurological: Mental Status: She is alert and oriented to person, place, and time. GCS: GCS eye subscore is 4. GCS verbal subscore is 5. GCS motor subscore is 6. Cranial Nerves: No cranial nerve deficit. Sensory: Sensation is intact. Motor: Motor function is intact. No weakness. Lab/Radiology/Diagnostic Review: Results for orders placed or performed during the hospital encounter of 11/29/22 (from the past 24 hour(s)) CBC and Auto Differential Result Value Ref Range WBC 8.0 4.4 - 11.3 x10*3/uL nRBC 0.0 0.0 - 0.0 /100 WBCs RBC 4.32 4.00 - 5.20 x10*6/uL Hemoglobin 12.4 12.0 - 16.0 g/dL Hematocrit 39.3 36.0 - 46.0 % MCV 91 80 - 100 fL MCH 28.7 26.0 - 34.0 pg MCHC 31.6 (L) 32.0 - 36.0 g/dL RDW 15.4 (H) 11.5 - 14.5 % Platelets 147 (L) 150 - 450 x10*3/uL MPV 12.0 (H) 7.5 - 11.5 fL Neutrophils % 56.5 40.0 - 80.0 % Immature Granulocytes %, Automated 0.4 0.0 - 0.9 % Lymphocytes % 29.1 13.0 - 44.0 % Monocytes % 10.9 2.0 - 10.0 % Eosinophils % 2.6 0.0 - 6.0 % Basophils % 0.5 0.0 - 2.0 % Neutrophils Absolute 4.52 1.60 - 5.50 x10*3/uL Immature Granulocytes Absolute, Automated 0.03 0.00 - 0.50 x10*3/uL Lymphocytes Absolute 2.33 0.80 - 3.00 x10*3/uL Monocytes Absolute 0.87 (H) 0.05 - 0.80 x10*3/uL Eosinophils Absolute 0.21 0.00 - 0.40 x10*3/uL Basophils Absolute 0.04 0.00 - 0.10 x10*3/uL CT head W O contrast trauma protocol Result Date: 11/29/2022 Interpreted By: Forrest Drew, STUDY: CT FACIAL BONES WO IV CONTRAST; CT HEAD W/O CONTRAST TRAUMA PROTOCOL; CT CERVICAL SPINE WO IV CONTRAST; 11/29/2022 4:37 pm INDICATION: Signs/Symptoms:fall, R frontal bone ecchymosis; Signs/Symptoms:Fall, right forehead hematoma, on Eliquis. COMPARISON: None. ACCESSION NUMBER(S): [id number]; [id number]; [id number] ORDERING CLINICIAN: CORBIN BORGES TECHNIQUE: Noncontrast axial CT scan of head, facial bones, and cervical spine was performed. Angled reformats in brain and bone windows were generated. The images were reviewed in bone, brain, blood and soft tissue windows. 3D volume rendered images of the facial bones were obtained and reviewed. FINDINGS: Head and facial bones: Acute subdural hematoma is seen along the interhemispheric fissure measuring up to 0.3 cm in thickness. There is no other intra/extra-axial fluid collection, mass effect, or midline shift. The ureña/white matter junction is preserved. Hypoattenuation of periventricular and subcortical white matter suggestive of chronic small vessel ischemic disease. Mild diffuse parenchymal volume loss is noted the basal cisterns are patent. The bilateral globes are intact. No acute fracture or dislocation is seen in the facial and cranial bones. Paranasal sinuses are clear. Cervical spine: There is no acute fracture or traumatic subluxation in the cervical spine. Minimal anterior slippage of C2 on C3 and C4 on C5 is most likely degenerative in etiology. Multilevel cervical spondylosis is noted. There is loss of normal cervical lordosis, which may be positional or due to muscle spasm. Prevertebral soft tissues are unremarkable. There is no apical pneumothorax. Acute subdural hematoma along the interhemispheric fissure measuring up to 0.3 cm in thickness. No midline shift. No acute fracture or dislocation in the facial and cranial bones. No acute fracture or traumatic subluxation in the cervical spine. I discussed the findings by phone with Dr. Bryan at 4:45 p.m. on 11/30/2019 Signed by: Forrest Drew 11/29/2022 4:54 PM Dictation workstation: [id number] CT cervical spine wo IV contrast Result Date: 11/29/2022 Interpreted By: Forrest Drew, STUDY: CT FACIAL BONES WO IV CONTRAST; CT HEAD W/O CONTRAST TRAUMA PROTOCOL; CT CERVICAL SPINE WO IV CONTRAST; 11/29/2022 4:37 pm INDICATION: Signs/Symptoms:fall, R frontal bone ecchymosis; Signs/Symptoms:Fall, right forehead hematoma, on Eliquis. COMPARISON: None. ACCESSION NUMBER(S): [id number]; [id number]; [id number] ORDERING CLINICIAN: CORBIN BORGES TECHNIQUE: Noncontrast axial CT scan of head, facial bones, and cervical spine was performed. Angled reformats in brain and bone windows were generated. The images were reviewed in bone, brain, blood and soft tissue windows. 3D volume rendered images of the facial bones were obtained and reviewed. FINDINGS: Head and facial bones: Acute subdural hematoma is seen along the interhemispheric fissure measuring up to 0.3 cm in thickness. There is no other intra/extra-axial fluid collection, mass effect, or midline shift. The ureña/white matter junction is preserved. Hypoattenuation of periventricular and subcortical white matter suggestive of chronic small vessel ischemic disease. Mild diffuse parenchymal volume loss is noted the basal cisterns are patent. The bilateral globes are intact. No acute fracture or dislocation is seen in the facial and cranial bones. Paranasal sinuses are clear. Cervical spine: There is no acute fracture or traumatic subluxation in the cervical spine. Minimal anterior slippage of C2 on C3 and C4 on C5 is most likely degenerative in etiology. Multilevel cervical spondylosis is noted. There is loss of normal cervical lordosis, which may be positional or due to muscle spasm. Prevertebral soft tissues are unremarkable. There is no apical pneumothorax. Acute subdural hematoma along the interhemispheric fissure measuring up to 0.3 cm in thickness. No midline shift. No acute fracture or dislocation in the facial and cranial bones. No acute fracture or traumatic subluxation in the cervical spine. I discussed the findings by phone with Dr. Bryan at 4:45 p.m. on 11/30/2019 Signed by: Forrest Drew 11/29/2022 4:54 PM Dictation workstation: [id number] CT maxillofacial bones wo IV contrast Result Date: 11/29/2022 Interpreted By: Forrest Drew, STUDY: CT FACIAL BONES WO IV CONTRAST; CT HEAD W/O CONTRAST TRAUMA PROTOCOL; CT CERVICAL SPINE WO IV CONTRAST; 11/29/2022 4:37 pm INDICATION: Signs/Symptoms:fall, R frontal bone ecchymosis; Signs/Symptoms:Fall, right forehead hematoma, on Eliquis. COMPARISON: None. ACCESSION NUMBER(S): [id number]; [id number]; [id number] ORDERING CLINICIAN: CORBIN BORGES TECHNIQUE: Noncontrast axial CT scan of head, facial bones, and cervical spine was performed. Angled reformats in brain and bone windows were generated. The images were reviewed in bone, brain, blood and soft tissue windows. 3D volume rendered images of the facial bones were obtained and reviewed. FINDINGS: Head and facial bones: Acute subdural hematoma is seen along the interhemispheric fissure measuring up to 0.3 cm in thickness. There is no other intra/extra-axial fluid collection, mass effect, or midline shift. The ureña/white matter junction is preserved. Hypoattenuation of periventricular and subcortical white matter suggestive of chronic small vessel ischemic disease. Mild diffuse parenchymal volume loss is noted the basal cisterns are patent. The bilateral globes are intact. No acute fracture or dislocation is seen in the facial and cranial bones. Paranasal sinuses are clear. Cervical spine: There is no acute fracture or traumatic subluxation in the cervical spine. Minimal anterior slippage of C2 on C3 and C4 on C5 is most likely degenerative in etiology. Multilevel cervical spondylosis is noted. There is loss of normal cervical lordosis, which may be positional or due to muscle spasm. Prevertebral soft tissues are unremarkable. There is no apical pneumothorax. Acute subdural hematoma along the interhemispheric fissure measuring up to 0.3 cm in thickness. No midline shift. No acute fracture or dislocation in the facial and cranial bones. No acute fracture or traumatic subluxation in the cervical spine. I discussed the findings by phone with Dr. Bryan at 4:45 p.m. on 11/30/2019 Signed by: Forrest Drew 11/29/2022 4:54 PM Dictation workstation: [id number] Assessment /Plan Patient is a 86 y.o. female with PMH significant for HTN, HLD, Afib, CAD/NSTEMI s/p stents, chronic anemia, GERD, DMT2, mitral regurgitation, colon cancer, CHF, and MDD who presented to [facility] ED on 11/29 as an HIA following a mechanical fall and was found to have a SDH. Pt admitted to trauma surgery with consult to NSGY. List of Injuries: SDH - 2.8 mm Rt frontal scalp hematoma Rt periorbital hematoma #SDH - Repeat CT at 6 hours - HOB >45 - Minimize metabolic demands > Maintain SBP >100 and <160 > Avoid fevers > Avoid hyponatremia > Maintain euglycemia > Avoid hypoxia - Tylenol prn mild pain, oxy prn mod-severe - No NSAIDs - NSGY consult - DVT ppx w/ SCDs only #Hypertensive urgency - S/p 5 mg hydralazine in ED for SBP >200 > Transient response with SBP back >200 within 45 minutes and bradycardia into 40s-50s - Unable to give labetalol d/t HR - Repeat hydralazine 5 mg x1 - If insufficient or transient response to hydralazine, will need cardene drip - Monitor vitals Q1 until BP stable - Resume home meds as soon as able - Consult ICU Chronic conditions #HTN #HLD #CAD #CHF #GERD - Hold home ASA - Continue other meds as appropriate - Medicine consult once out of ICU #Afib - Hold home eliquis - Continue home meds - Cardiology consult #DMT2 - Hold home PO meds - SSI while hospitalized DVT ppx: SCDs only PT/OT Dispo: admit to ICU for labile vitals and neurochecks. Patient discussed with attending surgeon, Dr. Parker. Sintia Hernandez PA-C I saw and evaluated the patient. I personally obtained the alexander and critical portions of the history and physical exam I was physically present for alexander and critical portions performed by the advanced practitioner. I reviewed the advanced practitioner's documentation and discussed the patient with the advanced practitioner. I agree with the advanced practitioner's medical decision making as documented in the advanced practitioner's note. Comments/Additional Findings: Personally seen and evaluated the patient. I agree with the findings as noted above with the advanced practitioner. Did not have chest pain shortness of breath when she fell leaving a restaurant. She is on anticoagulation following a myocardial infarction. History and findings otherwise are as above. [facility] Work Phone: 11-29-2022 History and physical note Trauma History and Physical Subjective Patient is a 86 y.o. female admitted on 11/29/2022 2:27 PM Arrival Date: 11/29/22 Arrival Time: 1412 Trauma Activation Level: limited Date of injury: 11/29/22 Time of injury: Immediately prior to arrival HPI: Pt reports that she tripped over the curb and fell face first into the concrete, landing on out-stretched hands. Mechanism of injury: fall Method of Arrival: EMS Prior to arrival: none PRIMARY SURVEY: Airway: intact Breathing: equal breath sounds and unlabored Circulation: pulses intact and equal and no obvious source of hemorrhage Disability: GCS 15, A&Ox3 Exposure/Environment: clothing removed, scattered abrasions notes, no other injuries Procedures: none SECONDARY SURVEY: Past Medical History: Diagnosis Date Acute renal failure (ARF) (CMS/HCC) Anemia Congestive heart failure (CHF) (CMS/HCC) Depression Diverticulitis of large intestine without perforation or abscess without bleeding 12/14/2015 Diverticulitis of large intestine without perforation or abscess without bleeding MELLO (dyspnea on exertion) Essential (primary) hypertension 12/16/2012 Benign essential hypertension Hyperlipidemia, unspecified 12/16/2012 Hyperlipidemia Localized edema 09/07/2021 Lower extremity edema Malignant neoplasm of colon, unspecified (CMS/HCC) Colon cancer Obstructive sleep apnea (adult) (pediatric) Obstructive sleep apnea Other forms of dyspnea 07/18/2018 MELLO (dyspnea on exertion) Personal history of other diseases of the circulatory system 12/25/2019 History of congestive heart failure Personal history of other diseases of the digestive system History of gastroesophageal reflux (GERD) Personal history of other diseases of the musculoskeletal system and connective tissue 11/30/2020 History of back pain Personal history of other diseases of the respiratory system 11/24/2013 History of acute bronchitis Personal history of other diseases of urinary system 12/25/2019 History of acute renal failure Personal history of other mental and behavioral disorders History of depression Personal history of other specified conditions 06/03/2014 History of abdominal pain Personal history of other specified conditions 06/03/2014 History of diarrhea Personal history of other specified conditions 01/04/2021 History of epigastric pain Pleural effusion, not elsewhere classified 06/15/2014 Bilateral pleural effusion Rash and other nonspecific skin eruption 07/09/2013 Rash Shortness of breath 11/25/2018 SOB (shortness of breath) on exertion 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, pernicious Past Surgical History: Procedure Laterality Date APPENDECTOMY 07/09/2013 Appendectomy COLONOSCOPY 07/09/2013 Complete Colonoscopy CORONARY ANGIOPLASTY WITH STENT PLACEMENT 07/14/2016 Cath Stent Placement HYSTERECTOMY 07/09/2013 Hysterectomy (Not in a hospital admission) Morphine and Ibuprofen Social History Tobacco Use Smoking status: Never Smokeless tobacco: Never Vaping Use Vaping Use: Never used Substance Use Topics Alcohol use: Not Currently Drug use: Never Family History Problem Relation Name Age of Onset Coronary artery disease Mother Diabetes Mother Coronary artery disease Father Diabetes Father Review of Systems: Eyes: negative for visual disturbance Respiratory: negative for SOB Cardiovascular: negative for chest pain, palpitations, and syncope Gastrointestinal: negative for abdominal pain, nausea, and vomiting Musculoskeletal: negative for back pain, neck pain, and wrist pain Neurological: negative for dizziness, headaches, memory problems, paresthesia, and weakness Objective Vitals: Most Recent: Vitals: 11/29/22 1734 BP: (!) 202/84 Pulse: 68 Resp: 18 Temp: SpO2: 98% 24hr Min/Max: Temp Min: 36.4 C (97.5 F) Max: 36.4 C (97.5 F) Pulse Min: 59 Max: 68 BP Min: 118/63 Max: 202/84 Resp Min: 16 Max: 18 SpO2 Min: 98 % Max: 100 % Hemodynamic parameters for last 24 hours: No intake/output data recorded. Physical exam: Physical Exam Constitutional: General: She is not in acute distress. Appearance: Normal appearance. She is not ill-appearing. HENT: Head: No raccoon eyes or Black's sign. Jaw: No tenderness, pain on movement or malocclusion. Comments: Rt frontal scalp hematoma, soft, non-TTP Right Ear: External ear normal. Left Ear: External ear normal. Nose: No nasal deformity or nasal tenderness. Mouth/Throat: Mouth: Mucous membranes are moist. No injury. Dentition: Normal dentition. Eyes: Extraocular Movements: Extraocular movements intact. Pupils: Pupils are equal, round, and reactive to light. Comments: Rt periorbital ecchymosis and edema Neck: Trachea: No tracheal deviation. Cardiovascular: Rate and Rhythm: Normal rate and regular rhythm. Pulses: Normal pulses. Heart sounds: No murmur heard. Pulmonary: Effort: Pulmonary effort is normal. No respiratory distress. Breath sounds: Normal breath sounds and air entry. Chest: Comments: No chest wall tenderness or crepitus, no ecchymosis or hematoma Abdominal: General: Abdomen is flat. Bowel sounds are normal. There is no distension. Palpations: Abdomen is soft. Tenderness: There is no abdominal tenderness. Genitourinary: Comments: Pelvis stable to AP and lateral compression Musculoskeletal: General: No swelling, tenderness or deformity. Normal range of motion. Right wrist: No deformity or tenderness. Normal range of motion. Left wrist: No deformity or tenderness. Normal range of motion. Cervical back: Normal range of motion. No spinous process tenderness or muscular tenderness. Skin: General: Skin is warm and dry. Coloration: Skin is not pale. Findings: Abrasion (Rt elbow, Rt knee) present. Neurological: Mental Status: She is alert and oriented to person, place, and time. GCS: GCS eye subscore is 4. GCS verbal subscore is 5. GCS motor subscore is 6. Cranial Nerves: No cranial nerve deficit. Sensory: Sensation is intact. Motor: Motor function is intact. No weakness. Lab/Radiology/Diagnostic Review: Results for orders placed or performed during the hospital encounter of 11/29/22 (from the past 24 hour(s)) CBC and Auto Differential Result Value Ref Range WBC 8.0 4.4 - 11.3 x10*3/uL nRBC 0.0 0.0 - 0.0 /100 WBCs RBC 4.32 4.00 - 5.20 x10*6/uL Hemoglobin 12.4 12.0 - 16.0 g/dL Hematocrit 39.3 36.0 - 46.0 % MCV 91 80 - 100 fL MCH 28.7 26.0 - 34.0 pg MCHC 31.6 (L) 32.0 - 36.0 g/dL RDW 15.4 (H) 11.5 - 14.5 % Platelets 147 (L) 150 - 450 x10*3/uL MPV 12.0 (H) 7.5 - 11.5 fL Neutrophils % 56.5 40.0 - 80.0 % Immature Granulocytes %, Automated 0.4 0.0 - 0.9 % Lymphocytes % 29.1 13.0 - 44.0 % Monocytes % 10.9 2.0 - 10.0 % Eosinophils % 2.6 0.0 - 6.0 % Basophils % 0.5 0.0 - 2.0 % Neutrophils Absolute 4.52 1.60 - 5.50 x10*3/uL Immature Granulocytes Absolute, Automated 0.03 0.00 - 0.50 x10*3/uL Lymphocytes Absolute 2.33 0.80 - 3.00 x10*3/uL Monocytes Absolute 0.87 (H) 0.05 - 0.80 x10*3/uL Eosinophils Absolute 0.21 0.00 - 0.40 x10*3/uL Basophils Absolute 0.04 0.00 - 0.10 x10*3/uL CT head W O contrast trauma protocol Result Date: 11/29/2022 Interpreted By: Forrest Drew, STUDY: CT FACIAL BONES WO IV CONTRAST; CT HEAD W/O CONTRAST TRAUMA PROTOCOL; CT CERVICAL SPINE WO IV CONTRAST; 11/29/2022 4:37 pm INDICATION: Signs/Symptoms:fall, R frontal bone ecchymosis; Signs/Symptoms:Fall, right forehead hematoma, on Eliquis. COMPARISON: None. ACCESSION NUMBER(S): [id number]; [id number]; [id number] ORDERING CLINICIAN: CORBIN BORGES TECHNIQUE: Noncontrast axial CT scan of head, facial bones, and cervical spine was performed. Angled reformats in brain and bone windows were generated. The images were reviewed in bone, brain, blood and soft tissue windows. 3D volume rendered images of the facial bones were obtained and reviewed. FINDINGS: Head and facial bones: Acute subdural hematoma is seen along the interhemispheric fissure measuring up to 0.3 cm in thickness. There is no other intra/extra-axial fluid collection, mass effect, or midline shift. The ureña/white matter junction is preserved. Hypoattenuation of periventricular and subcortical white matter suggestive of chronic small vessel ischemic disease. Mild diffuse parenchymal volume loss is noted the basal cisterns are patent. The bilateral globes are intact. No acute fracture or dislocation is seen in the facial and cranial bones. Paranasal sinuses are clear. Cervical spine: There is no acute fracture or traumatic subluxation in the cervical spine. Minimal anterior slippage of C2 on C3 and C4 on C5 is most likely degenerative in etiology. Multilevel cervical spondylosis is noted. There is loss of normal cervical lordosis, which may be positional or due to muscle spasm. Prevertebral soft tissues are unremarkable. There is no apical pneumothorax. Acute subdural hematoma along the interhemispheric fissure measuring up to 0.3 cm in thickness. No midline shift. No acute fracture or dislocation in the facial and cranial bones. No acute fracture or traumatic subluxation in the cervical spine. I discussed the findings by phone with Dr. Bryan at 4:45 p.m. on 11/30/2019 Signed by: Forrest Drew 11/29/2022 4:54 PM Dictation workstation: [id number] CT cervical spine wo IV contrast Result Date: 11/29/2022 Interpreted By: Forrest Drew, STUDY: CT FACIAL BONES WO IV CONTRAST; CT HEAD W/O CONTRAST TRAUMA PROTOCOL; CT CERVICAL SPINE WO IV CONTRAST; 11/29/2022 4:37 pm INDICATION: Signs/Symptoms:fall, R frontal bone ecchymosis; Signs/Symptoms:Fall, right forehead hematoma, on Eliquis. COMPARISON: None. ACCESSION NUMBER(S): [id number]; [id number]; [id number] ORDERING CLINICIAN: CORBIN BRYAN; FLORENCE BORGES TECHNIQUE: Noncontrast axial CT scan of head, facial bones, and cervical spine was performed. Angled reformats in brain and bone windows were generated. The images were reviewed in bone, brain, blood and soft tissue windows. 3D volume rendered images of the facial bones were obtained and reviewed. FINDINGS: Head and facial bones: Acute subdural hematoma is seen along the interhemispheric fissure measuring up to 0.3 cm in thickness. There is no other intra/extra-axial fluid collection, mass effect, or midline shift. The ureña/white matter junction is preserved. Hypoattenuation of periventricular and subcortical white matter suggestive of chronic small vessel ischemic disease. Mild diffuse parenchymal volume loss is noted the basal cisterns are patent. The bilateral globes are intact. No acute fracture or dislocation is seen in the facial and cranial bones. Paranasal sinuses are clear. Cervical spine: There is no acute fracture or traumatic subluxation in the cervical spine. Minimal anterior slippage of C2 on C3 and C4 on C5 is most likely degenerative in etiology. Multilevel cervical spondylosis is noted. There is loss of normal cervical lordosis, which may be positional or due to muscle spasm. Prevertebral soft tissues are unremarkable. There is no apical pneumothorax. Acute subdural hematoma along the interhemispheric fissure measuring up to 0.3 cm in thickness. No midline shift. No acute fracture or dislocation in the facial and cranial bones. No acute fracture or traumatic subluxation in the cervical spine. I discussed the findings by phone with Dr. Bryan at 4:45 p.m. on 11/30/2019 Signed by: Forrest Drew 11/29/2022 4:54 PM Dictation workstation: [id number] CT maxillofacial bones wo IV contrast Result Date: 11/29/2022 Interpreted By: Forrest Drew, STUDY: CT FACIAL BONES WO IV CONTRAST; CT HEAD W/O CONTRAST TRAUMA PROTOCOL; CT CERVICAL SPINE WO IV CONTRAST; 11/29/2022 4:37 pm INDICATION: Signs/Symptoms:fall, R frontal bone ecchymosis; Signs/Symptoms:Fall, right forehead hematoma, on Eliquis. COMPARISON: None. ACCESSION NUMBER(S): [id number]; [id number]; [id number] ORDERING CLINICIAN: CORBIN BRYAN; FLORENCE BORGES TECHNIQUE: Noncontrast axial CT scan of head, facial bones, and cervical spine was performed. Angled reformats in brain and bone windows were generated. The images were reviewed in bone, brain, blood and soft tissue windows. 3D volume rendered images of the facial bones were obtained and reviewed. FINDINGS: Head and facial bones: Acute subdural hematoma is seen along the interhemispheric fissure measuring up to 0.3 cm in thickness. There is no other intra/extra-axial fluid collection, mass effect, or midline shift. The ureña/white matter junction is preserved. Hypoattenuation of periventricular and subcortical white matter suggestive of chronic small vessel ischemic disease. Mild diffuse parenchymal volume loss is noted the basal cisterns are patent. The bilateral globes are intact. No acute fracture or dislocation is seen in the facial and cranial bones. Paranasal sinuses are clear. Cervical spine: There is no acute fracture or traumatic subluxation in the cervical spine. Minimal anterior slippage of C2 on C3 and C4 on C5 is most likely degenerative in etiology. Multilevel cervical spondylosis is noted. There is loss of normal cervical lordosis, which may be positional or due to muscle spasm. Prevertebral soft tissues are unremarkable. There is no apical pneumothorax. Acute subdural hematoma along the interhemispheric fissure measuring up to 0.3 cm in thickness. No midline shift. No acute fracture or dislocation in the facial and cranial bones. No acute fracture or traumatic subluxation in the cervical spine. I discussed the findings by phone with Dr. Bryan at 4:45 p.m. on 11/30/2019 Signed by: Forrest Drew 11/29/2022 4:54 PM Dictation workstation: [id number] Assessment /Plan Patient is a 86 y.o. female with PMH significant for HTN, HLD, Afib, CAD/NSTEMI s/p stents, chronic anemia, GERD, DMT2, mitral regurgitation, colon cancer, CHF, and MDD who presented to [facility] ED on 11/29 as an HIA following a mechanical fall and was found to have a SDH. Pt admitted to trauma surgery with consult to NSGY. List of Injuries: SDH - 2.8 mm Rt frontal scalp hematoma Rt periorbital hematoma #SDH - Repeat CT at 6 hours - HOB >45 - Minimize metabolic demands > Maintain SBP >100 and <160 > Avoid fevers > Avoid hyponatremia > Maintain euglycemia > Avoid hypoxia - Tylenol prn mild pain, oxy prn mod-severe - No NSAIDs - NSGY consult - DVT ppx w/ SCDs only #Hypertensive urgency - S/p 5 mg hydralazine in ED for SBP >200 > Transient response with SBP back >200 within 45 minutes and bradycardia into 40s-50s - Unable to give labetalol d/t HR - Repeat hydralazine 5 mg x1 - If insufficient or transient response to hydralazine, will need cardene drip - Monitor vitals Q1 until BP stable - Resume home meds as soon as able - Consult ICU Chronic conditions #HTN #HLD #CAD #CHF #GERD - Hold home ASA - Continue other meds as appropriate - Medicine consult once out of ICU #Afib - Hold home eliquis - Continue home meds - Cardiology consult #DMT2 - Hold home PO meds - SSI while hospitalized DVT ppx: SCDs only PT/OT Dispo: admit to ICU for labile vitals and neurochecks. Patient discussed with attending surgeon, Dr. Parker. Sintia Hernandez PA-C I saw and evaluated the patient. I personally obtained the alexander and critical portions of the history and physical exam I was physically present for alexander and critical portions performed by the advanced practitioner. I reviewed the advanced practitioner's documentation and discussed the patient with the advanced practitioner. I agree with the advanced practitioner's medical decision making as documented in the advanced practitioner's note. Comments/Additional Findings: Personally seen and evaluated the patient. I agree with the findings as noted above with the advanced practitioner. Did not have chest pain shortness of breath when she fell leaving a restaurant. She is on anticoagulation following a myocardial infarction. History and findings otherwise are as above. documented in this encounter [facility] Work Phone: 11-29-2022 Emergency department Note HPI No chief complaint on file. Patient is an 86-year-old female with atrial fibrillation on Eliquis, hypertension, hyperlipidemia, diabetes presents the emergency department after mechanical fall. She was walking of her rash on her [id number]. She stepped down off the curb and fell forward, striking the right side of her head where there is now a hematoma. She does have a small skin tear on her right elbow. EMS was called and patient was brought to the emergency department. She did not have any loss of consciousness, nausea or vomiting. Her [id number] is here with her reports that she is at her normal baseline without any slurred speech or confusion. Patient only complains of some pain at the site of her hematoma, but denies pain anywhere such as her elbow, neck, back, abdomen, legs. She has full range of motion of her right elbow where the skin tear is. She does not remember when her last tetanus shot is. History provided by: Patient, EMS personnel and relative No data recorded Patient History Past Medical History: Diagnosis Date Acute renal failure (ARF) (CMS/HCC) Anemia Congestive heart failure (CHF) (CMS/HCC) Depression Diverticulitis of large intestine without perforation or abscess without bleeding 12/14/2015 Diverticulitis of large intestine without perforation or abscess without bleeding MELLO (dyspnea on exertion) Essential (primary) hypertension 12/16/2012 Benign essential hypertension Hyperlipidemia, unspecified 12/16/2012 Hyperlipidemia Localized edema 09/07/2021 Lower extremity edema Malignant neoplasm of colon, unspecified (CMS/HCC) Colon cancer Obstructive sleep apnea (adult) (pediatric) Obstructive sleep apnea Other forms of dyspnea 07/18/2018 MELLO (dyspnea on exertion) Personal history of other diseases of the circulatory system 12/25/2019 History of congestive heart failure Personal history of other diseases of the digestive system History of gastroesophageal reflux (GERD) Personal history of other diseases of the musculoskeletal system and connective tissue 11/30/2020 History of back pain Personal history of other diseases of the respiratory system 11/24/2013 History of acute bronchitis Personal history of other diseases of urinary system 12/25/2019 History of acute renal failure Personal history of other mental and behavioral disorders History of depression Personal history of other specified conditions 06/03/2014 History of abdominal pain Personal history of other specified conditions 06/03/2014 History of diarrhea Personal history of other specified conditions 01/04/2021 History of epigastric pain Pleural effusion, not elsewhere classified 06/15/2014 Bilateral pleural effusion Rash and other nonspecific skin eruption 07/09/2013 Rash Shortness of breath 11/25/2018 SOB (shortness of breath) on exertion 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, pernicious Past Surgical History: Procedure Laterality Date APPENDECTOMY 07/09/2013 Appendectomy COLONOSCOPY 07/09/2013 Complete Colonoscopy CORONARY ANGIOPLASTY WITH STENT PLACEMENT 07/14/2016 Cath Stent Placement HYSTERECTOMY 07/09/2013 Hysterectomy Family History Problem Relation Name Age of Onset Coronary artery disease Mother Diabetes Mother Coronary artery disease Father Diabetes Father Social History Tobacco Use Smoking status: Never Smokeless tobacco: Never Vaping Use Vaping Use: Never used Substance Use Topics Alcohol use: Not Currently Drug use: Never Physical Exam ED Triage Vitals [11/29/22 1434] Temp Heart Rate Resp BP -- 65 16 (!) 182/56 SpO2 Temp src Heart Rate Source Patient Position 100 % -- -- -- BP Location FiO2 (%) -- -- Physical Exam Vitals and nursing note reviewed. Constitutional: General: She is not in acute distress. Appearance: She is well-developed. HENT: Head: Comments: Right forehead hematoma. Right Ear: External ear normal. Left Ear: External ear normal. Nose: Nose normal. Mouth/Throat: Mouth: Mucous membranes are moist. Eyes: General: No scleral icterus. Extraocular Movements: Extraocular movements intact. Conjunctiva/sclera: Conjunctivae normal. Pupils: Pupils are equal, round, and reactive to light. Cardiovascular: Rate and Rhythm: Normal rate and regular rhythm. Heart sounds: No murmur heard. Pulmonary: Effort: Pulmonary effort is normal. No respiratory distress. Breath sounds: Normal breath sounds. Abdominal: Palpations: Abdomen is soft. Tenderness: There is no abdominal tenderness. There is no guarding or rebound. Musculoskeletal: General: No swelling, tenderness or deformity. Cervical back: Neck supple. Skin: General: Skin is warm and dry. Findings: Lesion present. Comments: Small right elbow abrasion, no bleeding. Neurological: General: No focal deficit present. Mental Status: She is alert and oriented to person, place, and time. Mental status is at baseline. Cranial Nerves: No cranial nerve deficit. Sensory: No sensory deficit. Motor: No weakness. Psychiatric: Mood and Affect: Mood normal. ED Course & MDM ED Course as of 11/29/221724Nov 29, 20221645 CT head W O contrast trauma protocol Called by radiologist for 2.4 mm subdural hematoma. It is unclear why there was a delay to CT imaging for this patient. [AB] ED Course User Index [AB] Corbin Bryan MD Diagnoses as of 11/29/221724 Subdural hemorrhage ([facility]) Fall, initial encounter Medical Decision Making Patient is a 86-year-old female on Eliquis who presents emergency department after mechanical fall. On arrival to emergency room by EMS, she is noted to be hypertensive 182/56, but asymptomatic. Otherwise hemodynamically stable. She does have known hypertension. Blood sugar for EMS was 140. Patient denies any symptoms such as chest pain, dizziness, shortness of breath, changes in vision prior to this fall. She states that she had fallen because of the curb. She does not think she has ever had a tetanus shot, so she is given a Boostrix shot today. CT imaging of the head and C-spine will be obtained as she is on Eliquis. Declines anything for pain this time. Abrasion is cleaned and bandaged. CT head W O contrast trauma protocol Final Result Acute subdural hematoma along the interhemispheric fissure measuring up to 0.3 cm in thickness. No midline shift. No acute fracture or dislocation in the facial and cranial bones. No acute fracture or traumatic subluxation in the cervical spine. I discussed the findings by phone with Dr. Bryan at 4:45 p.m. on 11/30/2019 Signed by: Forrest Drew 11/29/2022 4:54 PM Dictation workstation: [id number] CT cervical spine wo IV contrast Final Result Acute subdural hematoma along the interhemispheric fissure measuring up to 0.3 cm in thickness. No midline shift. No acute fracture or dislocation in the facial and cranial bones. No acute fracture or traumatic subluxation in the cervical spine. I discussed the findings by phone with Dr. Bryan at 4:45 p.m. on 11/30/2019 Signed by: Forrest Drew 11/29/2022 4:54 PM Dictation workstation: [id number] CT maxillofacial bones wo IV contrast Final Result Acute subdural hematoma along the interhemispheric fissure measuring up to 0.3 cm in thickness. No midline shift. No acute fracture or dislocation in the facial and cranial bones. No acute fracture or traumatic subluxation in the cervical spine. I discussed the findings by phone with Dr. Bryan at 4:45 p.m. on 11/30/2019 Signed by: Forrest Drew 11/29/2022 4:54 PM Dictation workstation: [id number] Patient is reevaluated. GCS 15, awake and alert, no distress. Findings discussed with the patient. She require admission and she is agreeable with this. Dr. Leal contacted. He reviewed the images. The patient can stay here at [place]. Repeat CT scan in 6 hours. Systolic blood pressure goal below 160. No Kcentra. Patient to be admitted to trauma surgery in the ICU. Contacted Dr. Parker and report is given to the trauma HORACIO. Labs drawn per request. Florence Borges DO, PGY 3 Emergency Medicine Resident Amount and/or Complexity of Data Reviewed Radiology: ordered and independent interpretation performed. Procedure Procedures Florence Borges DO Resident 11/29/22 1358 Associated attestation - Corbin Bryan MD - 11/29/2022 9:41 PM EDT The patient was seen by the resident/fellow. I have personally performed a substantive portion of the encounter. I have seen and examined the patient; agree with the workup, evaluation, MDM, management and diagnosis. The care plan has been discussed with the resident; I have reviewed the resident s note and agree with the documented findings. Presented as a HIA. Nontoxic-appearing. Hemodynamically stable. Primary survey intact. Nursing chemical cell changer after initial evaluation. Unfortunately, was not communicated to oncoming nursing that the patient was a HIA with pending acute/life limb-threatening imaging. After this was relayed, patient was immediately taken to the CT scanner found to have a subdural hematoma. Discussed with neurosurgery. Discussed with trauma surgery. Will escalate care to hospitalization for further management. Neurosurgery not recommending reversal with Kcentra at this time. documented in this encounter [facility] Work Phone: 11-29-2022 Physician Emergency department Note HPI No chief complaint on file. Patient is an 86-year-old female with atrial fibrillation on Eliquis, hypertension, hyperlipidemia, diabetes presents the emergency department after mechanical fall. She was walking of her rash on her [id number]-tps. She stepped down off the curb and fell forward, striking the right side of her head where there is now a hematoma. She does have a small skin tear on her right elbow. EMS was called and patient was brought to the emergency department. She did not have any loss of consciousness, nausea or vomiting. Her [id number] is here with her reports that she is at her normal baseline without any slurred speech or confusion. Patient only complains of some pain at the site of her hematoma, but denies pain anywhere such as her elbow, neck, back, abdomen, legs. She has full range of motion of her right elbow where the skin tear is. She does not remember when her last tetanus shot is. History provided by: Patient, EMS personnel and relative No data recorded Patient History Past Medical History: Diagnosis Date Acute renal failure (ARF) (CMS/HCC) Anemia Congestive heart failure (CHF) (CMS/HCC) Depression Diverticulitis of large intestine without perforation or abscess without bleeding 12/14/2015 Diverticulitis of large intestine without perforation or abscess without bleeding MELLO (dyspnea on exertion) Essential (primary) hypertension 12/16/2012 Benign essential hypertension Hyperlipidemia, unspecified 12/16/2012 Hyperlipidemia Localized edema 09/07/2021 Lower extremity edema Malignant neoplasm of colon, unspecified (CMS/HCC) Colon cancer Obstructive sleep apnea (adult) (pediatric) Obstructive sleep apnea Other forms of dyspnea 07/18/2018 MELLO (dyspnea on exertion) Personal history of other diseases of the circulatory system 12/25/2019 History of congestive heart failure Personal history of other diseases of the digestive system History of gastroesophageal reflux (GERD) Personal history of other diseases of the musculoskeletal system and connective tissue 11/30/2020 History of back pain Personal history of other diseases of the respiratory system 11/24/2013 History of acute bronchitis Personal history of other diseases of urinary system 12/25/2019 History of acute renal failure Personal history of other mental and behavioral disorders History of depression Personal history of other specified conditions 06/03/2014 History of abdominal pain Personal history of other specified conditions 06/03/2014 History of diarrhea Personal history of other specified conditions 01/04/2021 History of epigastric pain Pleural effusion, not elsewhere classified 06/15/2014 Bilateral pleural effusion Rash and other nonspecific skin eruption 07/09/2013 Rash Shortness of breath 11/25/2018 SOB (shortness of breath) on exertion 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, pernicious Past Surgical History: Procedure Laterality Date APPENDECTOMY 07/09/2013 Appendectomy COLONOSCOPY 07/09/2013 Complete Colonoscopy CORONARY ANGIOPLASTY WITH STENT PLACEMENT 07/14/2016 Cath Stent Placement HYSTERECTOMY 07/09/2013 Hysterectomy Family History Problem Relation Name Age of Onset Coronary artery disease Mother Diabetes Mother Coronary artery disease Father Diabetes Father Social History Tobacco Use Smoking status: Never Smokeless tobacco: Never Vaping Use Vaping Use: Never used Substance Use Topics Alcohol use: Not Currently Drug use: Never Physical Exam ED Triage Vitals [11/29/22 1434] Temp Heart Rate Resp BP -- 65 16 (!) 182/56 SpO2 Temp src Heart Rate Source Patient Position 100 % -- -- -- BP Location FiO2 (%) -- -- Physical Exam Vitals and nursing note reviewed. Constitutional: General: She is not in acute distress. Appearance: She is well-developed. HENT: Head: Comments: Right forehead hematoma. Right Ear: External ear normal. Left Ear: External ear normal. Nose: Nose normal. Mouth/Throat: Mouth: Mucous membranes are moist. Eyes: General: No scleral icterus. Extraocular Movements: Extraocular movements intact. Conjunctiva/sclera: Conjunctivae normal. Pupils: Pupils are equal, round, and reactive to light. Cardiovascular: Rate and Rhythm: Normal rate and regular rhythm. Heart sounds: No murmur heard. Pulmonary: Effort: Pulmonary effort is normal. No respiratory distress. Breath sounds: Normal breath sounds. Abdominal: Palpations: Abdomen is soft. Tenderness: There is no abdominal tenderness. There is no guarding or rebound. Musculoskeletal: General: No swelling, tenderness or deformity. Cervical back: Neck supple. Skin: General: Skin is warm and dry. Findings: Lesion present. Comments: Small right elbow abrasion, no bleeding. Neurological: General: No focal deficit present. Mental Status: She is alert and oriented to person, place, and time. Mental status is at baseline. Cranial Nerves: No cranial nerve deficit. Sensory: No sensory deficit. Motor: No weakness. Psychiatric: Mood and Affect: Mood normal. ED Course & MDM ED Course as of 11/29/221724Nov 29, [address] head W O contrast trauma protocol Called by radiologist for 2.4 mm subdural hematoma. It is unclear why there was a delay to CT imaging for this patient. [AB] ED Course User Index [AB] Corbin Bryan MD Diagnoses as of 11/29/221724 Subdural hemorrhage (CMS/[facility]) Fall, initial encounter Medical Decision Making Patient is a 86-year-old female on Eliquis who presents emergency department after mechanical fall. On arrival to emergency room by EMS, she is noted to be hypertensive 182/56, but asymptomatic. Otherwise hemodynamically stable. She does have known hypertension. Blood sugar for EMS was 140. Patient denies any symptoms such as chest pain, dizziness, shortness of breath, changes in vision prior to this fall. She states that she had fallen because of the curb. She does not think she has ever had a tetanus shot, so she is given a Boostrix shot today. CT imaging of the head and C-spine will be obtained as she is on Eliquis. Declines anything for pain this time. Abrasion is cleaned and bandaged. CT head W O contrast trauma protocol Final Result Acute subdural hematoma along the interhemispheric fissure measuring up to 0.3 cm in thickness. No midline shift. No acute fracture or dislocation in the facial and cranial bones. No acute fracture or traumatic subluxation in the cervical spine. I discussed the findings by phone with Dr. Bryan at 4:45 p.m. on 11/30/2019 Signed by: Forrest Drew 11/29/2022 4:54 PM Dictation workstation: [id number] CT cervical spine wo IV contrast Final Result Acute subdural hematoma along the interhemispheric fissure measuring up to 0.3 cm in thickness. No midline shift. No acute fracture or dislocation in the facial and cranial bones. No acute fracture or traumatic subluxation in the cervical spine. I discussed the findings by phone with Dr. Bryan at 4:45 p.m. on 11/30/2019 Signed by: Forrest Drew 11/29/2022 4:54 PM Dictation workstation: [id number] CT maxillofacial bones wo IV contrast Final Result Acute subdural hematoma along the interhemispheric fissure measuring up to 0.3 cm in thickness. No midline shift. No acute fracture or dislocation in the facial and cranial bones. No acute fracture or traumatic subluxation in the cervical spine. I discussed the findings by phone with Dr. Bryan at 4:45 p.m. on 11/30/2019 Signed by: Forrest Drew 11/29/2022 4:54 PM Dictation workstation: [id number] Patient is reevaluated. GCS 15, awake and alert, no distress. Findings discussed with the patient. She require admission and she is agreeable with this. Dr. Leal contacted. He reviewed the images. The patient can stay here at [place]. Repeat CT scan in 6 hours. Systolic blood pressure goal below 160. No Kcentra. Patient to be admitted to trauma surgery in the ICU. Contacted Dr. Parker and report is given to the trauma HORACIO. Labs drawn per request. Florence Borges DO, PGY 3 Emergency Medicine Resident Amount and/or Complexity of Data Reviewed Radiology: ordered and independent interpretation performed. Procedure Procedures Florence Borges DO Resident 11/29/22 7105 Associated attestation - Corbin Bryan MD - 11/29/2022 9:41 PM EDT The patient was seen by the resident/fellow. I have personally performed a substantive portion of the encounter. I have seen and examined the patient; agree with the workup, evaluation, MDM, management and diagnosis. The care plan has been discussed with the resident; I have reviewed the resident s note and agree with the documented findings. Presented as a HIA. Nontoxic-appearing. Hemodynamically stable. Primary survey intact. Nursing chemical cell changer after initial evaluation. Unfortunately, was not communicated to oncoming nursing that the patient was a HIA with pending acute/life limb-threatening imaging. After this was relayed, patient was immediately taken to the CT scanner found to have a subdural hematoma. Discussed with neurosurgery. Discussed with trauma surgery. Will escalate care to hospitalization for further management. Neurosurgery not recommending reversal with Kcentra at this time. [facility] Work Phone: 10-11-2022 History of Present illness Narrative Ingrid Enrique [place] 86 year old here today with her daughter for a follow up to her fitting of demo hearing aids. The patient reports liking the aids and feels she is hearing much better. She would like to proceed with ordering new hearing aids Purchase agreements were signed and the patient will schedule an orientation in 1 week. JACKSON Epstein documented in this encounter [facility] 10-04-2022 History of Present illness Narrative Ingrid Enrique October 04, 2022 HEARING AID EVALUATION Previous hearing aid fitting: No Test results: see audiometric testing completed on 08/31/22 Medical recommendation: none Insurance coverage: none Aid selected: the patient prefers the RITE fitting Additional information: the patient was seen with her daughter today to discuss hearing aids. Her is a patient and currently fit with nevaeh aids. The patient reports having trouble hearing conversations in quiet and noise. The patient was fit with demo Real 1 miniRITE bilaterally set to fit level 1 with the overall gain decreased X2 bilaterally for comfort. An appointment was scheduled for follow up in 1 week. JACKSON Epstein documented in this encounter [facility] 08-31-2022 History of Present illness Narrative /15//[facility] August 31, 2022 Ingrid Donald was seen today for audiometric testing, referred by her daughter in law. The patient reports noticing decreased hearing. The patient also reports occasional brief spinning vertigo when laying down in bed at night. She reports a sister is hard of hearing. The patient denies any history of ear infections or surgeries and no tinnitus. PHYSICAL EXAMINATION: Otoscopic inspection revealed non occluding cerumen in the right ear left ear free of cerumen TEST RESULTS: Audiometric testing revealed a mild to moderately severe sensorineural hearing loss bilaterally. Speech receptionist thresholds agree with pure tone averaged. Speech discrimination testing revealed good speech discrimination ability bilaterally. Audiometric test may be viewed in procedures RECOMMENDATIONS/PLAN: The above test results were discussed with the patient and the following recommendations were made: 1. Cerumen removal, the patient will do this at home 2. Consider referral to ENT to evaluate dizziness 3. Consider hearing aids 4. Use of communication strategies to enhance speech understanding ability JACKSON Epstein documented in this encounter [facility] 06-02-2022 History of Present illness Narrative Subjective Patient ID: Ingrid Donald is a 86 y.o. female who presents for Follow-up (Hospital follow up /[facility] /Admission 04/21/22/Discharged 04/26/22/Final dx pneumonia//Per pt she's still not feeling very good. /Records were requested. Have not yet received them. ). HPI Patient of Dr. Price here for hospital follow up- was in [facility], admitted 04/21/2022- 04/26/2022 (?) diagnosis pneumonia and Diverticulitis. Last seen by Dr. Price on 12/14/2021. She is accompanied by granddaughter in the exam room today. Feeling week, short of breath. Since Current concern: 1) Hospitalized for pneumonia and diverticulitis per patient, no records at time appointment. Reports still not feeling good. Coughing hard- clear and thick phlegm. Ongoing fatigue 2) Left hip pain- ongoing concern, but seems to be worse lately. 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 Review of Systems Constitutional: Positive for fatigue. HENT: Positive for rhinorrhea. Negative for sinus pressure and sinus pain. Respiratory: Positive for cough, shortness of breath and wheezing. Cardiovascular: Negative. Gastrointestinal: Negative. Musculoskeletal: Positive for arthralgias. Left hip pain Neurological: Negative. Objective BP 130/74 (BP Location: Right arm, Patient Position: Sitting, BP Cuff Size: Adult) Pulse 77 Ht 1.524 m (5') Wt 83.4 kg (183 lb 12.8 oz) SpO2 97% BMI 35.90 kg/m Physical Exam Vitals reviewed. Constitutional: Appearance: Normal appearance. HENT: Right Ear: Tympanic membrane and ear canal normal. Left Ear: Tympanic membrane, ear canal and external ear normal. Nose: Nose normal. Mouth/Throat: Mouth: Mucous membranes are moist. Cardiovascular: Rate and Rhythm: Normal rate and regular rhythm. Heart sounds: Normal heart sounds. Pulmonary: Effort: Pulmonary effort is normal. Breath sounds: Examination of the left-upper field reveals rhonchi. Examination of the left-middle field reveals rhonchi. Examination of the right-lower field reveals rhonchi. Examination of the left-lower field reveals rhonchi. Rhonchi present. No decreased breath sounds or wheezing. Musculoskeletal: General: Normal range of motion. Cervical back: Normal range of motion and neck supple. Skin: General: Skin is warm. Neurological: General: No focal deficit present. Mental Status: She is alert. Psychiatric: Mood and Affect: Mood normal. Behavior: Behavior normal. Judgment: Judgment normal. Assessment/Plan Diagnoses and all orders for this visit: Acute cough / Upper respiratory tract infection, unspecified type - XR chest 2 views; Future - methylPREDNISolone (Medrol Dospak) 4 mg tablets; Take as directed on package. - azithromycin (Zithromax) 250 mg tablet; Take 2 tablets (500 mg) by mouth once daily for 1 day, THEN 1 tablet (250 mg) once daily for 4 days. Take 2 tabs (500 mg) by mouth today, than 1 daily for 4 days.. - benzonatate (Tessalon) 100 mg capsule; Take 1 capsule (100 mg) by mouth 3 times a day as needed for cough. Do not crush or chew. Patient requested lab orders for follow up appointment with Dr. Price first week of June- orders placed. Anemia, unspecified type - Iron and TIBC; Future - Comprehensive Metabolic Panel; Future Type 2 diabetes mellitus without complication, without long-term current use of insulin (CMS/HCC) - Hemoglobin A1C; Future Iron deficiency - Iron and TIBC; Future - CBC and Auto Differential; Future Vitamin B12 deficiency - Vitamin B12; Future Screening for thyroid disorder - TSH with reflex to Free T4 if abnormal; Future Vitamin D deficiency - Vitamin D 1,25 Dihydroxy; Future Hyperlipidemia, unspecified hyperlipidemia type - Lipid Panel; Future PLAN/FOLLOW UP With Dr. Price as scheduled beginning of June. Lab orders placed for this follow up Chest x-ray-> call with results documented in this encounter [facility] Work Phone: 06-02-2022 Instructions VINYN Ruiz - 06/02/2022 10:30 AM EDT Chest x-ray today-> call with results Start steroid and antibiotic today documented in this encounter [facility] Work Phone: 12-06-2021 History of Present illness Narrative f/u anemia, ashd, dm, dep/anx, pa, ckddoing musa bleeding sonya rescoping this monthgave 3 units prbcshgb 9.5 after first unitfeels betteredema better [facility] Work Phone: 06-23-2016 Evaluation note Diagnosis Onset Date Aortic stenosis chronic Coronary artery disease 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 History of coronary artery stent placement June 23, 2016 chronic Hyperlipemia chronic Hypertension chronic Paroxysmal atrial fibrillation [facility] Work Phone: Evaluation note* Diagnosis Iron deficiency- Primary Iron deficiency anemia, unspecified [facility] Diagnosis Iron deficiency- Primary Iron deficiency anemia, unspecified documented in this encounter [facility] note* Diagnosis Iron deficiency- Primary Iron deficiency anemia, unspecified [facility] Center note* Diagnosis Acute cough- Primary Upper respiratory tract infection, unspecified type Anemia, unspecified type Type 2 diabetes mellitus without complication, without long-term current use of insulin ([facility]) Iron deficiency Disorders of iron metabolism Vitamin B12 deficiency Other B-complex deficiencies Screening for thyroid disorder Vitamin D deficiency Hyperlipidemia, unspecified hyperlipidemia type documented in this encounter [facility] Work Phone: Evaluation note* Diagnosis ETD (Eustachian tube dysfunction), bilateral- Primary Sensorineural hearing loss (SNHL) of both ears [facility] Diagnosis Sensorineural hearing loss (SNHL) of both ears- Primary documented in this encounter [facility] note* Diagnosis Subdural hemorrhage (CMS/HCC)- Primary Subdural hemorrhage Subdural hemorrhage ([facility]/HCC) Subdural hemorrhage Fall, initial encounter documented in this encounter [facility] Work Phone: Evaluation note* Diagnosis Subdural hemorrhage (CMS/HCC)- Primary Subdural hemorrhage Nonsustained ventricular tachycardia (CMS/HCC) Non-ST elevation (NSTEMI) myocardial infarction ([facility]) Type 2 diabetes mellitus without complication, without long-term current use of insulin ([facility]) Paroxysmal atrial fibrillation ([facility]) Atrial fibrillation Hypertension, unspecified type Class 2 severe obesity due to excess calories with serious comorbidity and body mass index (BMI) of 37.0 to 37.9 in adult ([facility]) Hyperlipidemia, unspecified hyperlipidemia type Stage 3a chronic kidney disease ([facility]) CKD (chronic kidney disease), stage II Chronic kidney disease, Stage II (mild) ASHD (arteriosclerotic heart disease) Coronary atherosclerosis of unspecified type of vessel, [place] or graft Acute non-ST elevation myocardial infarction (NSTEMI) ([facility]) documented in this encounter [facility] Work Phone: Evaluation note* Diagnosis SDH (subdural hematoma) ([facility])- Primary Subdural hemorrhage documented in this encounter [facility] Work Phone: Evaluation note* Diagnosis ACS (acute coronary syndrome) ([facility]) Intermediate coronary syndrome documented in this encounter [facility] Work Phone: Evaluation note* Diagnosis Routine general medical examination at health care facility- Primary Routine general medical examination at a health care facility Medicare annual wellness visit, subsequent Depression, unspecified depression type ASHD (arteriosclerotic heart disease) Coronary atherosclerosis of unspecified type of vessel, [place] or graft Type 2 diabetes mellitus without complication, without long-term current use of insulin ([facility]) documented in this encounter [facility] Work Phone: Evaluation note* Diagnosis Primary osteoarthritis of both knees- Primary Primary localized osteoarthrosis, lower leg Type 2 diabetes mellitus without complication, without long-term current use of insulin ([facility]) [facility] Diagnosis ASHD (arteriosclerotic heart disease)- Primary Coronary atherosclerosis of unspecified type of vessel, [place] or graft Hyperlipidemia, unspecified hyperlipidemia type Type 2 diabetes mellitus without complication, without long-term current use of insulin ([facility]) Hypertension, unspecified type Anemia, unspecified type CKD (chronic kidney disease), stage II Chronic kidney disease, Stage II (mild) documented in this encounter [facility] Work Phone: Evaluation note* Diagnosis Anemia, unspecified- Primary [facility] Chronic pain of both knees documented in this encounter [facility] Work Phone: Evaluation note* Diagnosis Depression, unspecified depression type- Primary Chronic pain of both knees Type 2 diabetes mellitus without complication, without long-term current use of insulin ([facility]) Hyperlipidemia, unspecified hyperlipidemia type Hypertension, unspecified type ASHD (arteriosclerotic heart disease) Coronary atherosclerosis of unspecified type of vessel, [place] or graft Anxiety Anxiety state, unspecified HFrEF (heart failure with reduced ejection fraction) ([facility]) COPD exacerbation ([facility]) Obstructive chronic bronchitis with exacerbation Paroxysmal atrial fibrillation ([facility]) Atrial fibrillation documented in this encounter [facility] Work Phone: History of Present illness Narrative* getting pharm stress due to exertional fatigue * some sob * no bleeding or black stool, palps * f/u dep, dm, htn, nsvit, ashd, anx, gerd * dep and anxiety ok * no gerd [facility] Work Phone: History of Present illness Narrative* epigastric pain * famotidine helped 50% * worse w/ deep breaths * nausea w/ supper * back is better * f/u ashd, dm, dep/anx, htn, hyperlipidemia, pa, ckd [facility] Work Phone: History of Present illness Narrative* f/u dm, htn, hyperlipidemia, testing * feels pretty well now [facility] Work Phone: History of Present illness Narrative* The patient is being seen for the subsequent annual wellness visit. * Past Medical, Surgical and Family History: reviewed and updated in chart. * Medications and Supplements: Review of all medications by a prescribing practitioner or clinical pharmacist (such as prescriptions, OTCs, herbal therapies and supplements) documented in the medical record. * No, the patient is not using opioids. * Patient Self Assessment of Health Status: good. * Tobacco use: Non-User * Alcohol use: User * Illicit drug use: Non-User * Current diet: well balanced diet. * Exercise Frequency: the patient does not exercise. * Depression/Suicide Screening: Patient has a current diagnosis of depression . * During the past 2 weeks, the patient felt down, depressed or hopeless. * During the past 2 weeks, the patient has not felt little interest or pleasure in doing things. * Hearing Impairment: Patient has slight hearing impairment. * Cognitive Impairment: No cognitive impairment observed. * Bathing: performs independently. * Dressing: performs independently. * Walking: performs independently. * Managing Finances: performs independently. * Shopping: performs independently. * Managing Medications: performs independently. * Housework / Basic Home Maintenance: performs independently. * Falls Risk Screening:. PERDITA has not fallen in the last 6 months. * Home safety risk factors: none. * problems w/ stress * not doing that well * water damage in one house * air conditioner out in [place] * crying a lot * leg and foot pain * r > left * no trauma * a little swelling * f/u dm, hyperlipidemia, dep, htn [facility] Work Phone: History of Present illness Narrative* leg swelling * pain in r foot w/ walking/standing long periods * us neg x r bond's cyst * xrays remarkable for foot oa * edema very troubling to pt [facility] Work Phone: History of Present illness Narrative* edema * not better * some mello * no cp * not eating salt * weight up * f/u ckd, htn, hyperlipidemia, ashd [facility] Work Phone: History of Present illness Narrative* f/u edema, anx, dep, abnormal cr, anemia * edema better * less upset * no bleeding or black stool [facility] Work Phone: Reason for referral (narrative)* Diagnostic Procedure Only (Routine) - New Request Specialty Diagnoses / Procedures Referred By Diana dominguez Referred To Contact XR IMAGING Diagnoses Primary osteoarthritis of both knees Procedures XR KNEE 3V FLEX/LAT/MERCH LEFT (AK) RADIOLOGIC EXAMINATION KNEE 3 VIEWS Mark Vazquez MD [address] [place] [address] [place] [address] Referral ID Status Reason Start Date Expiration Date Visits Requested Visits Authorized [id number] New Request Auto-Generat ed Referral 11/13/2023 12/12/2024 1 1 * Diagnostic Procedure Only (Routine) - New Request Specialty Diagnoses / Procedures Referred By Diana dominguez Referred To Contact XR IMAGING Diagnoses Primary osteoarthritis of both knees Procedures XR KNEE 3V FLEX/LAT/MERCH RIGHT (AK) Mark Vazquez MD [address] [place] [address] [place] [address] Referral ID Status Reason Start Date Expiration Date Visits Requested Visits Authorized [id number] New Request Auto-Generat ed Referral 11/13/2023 12/12/2024 1 1 [facility] Summary Purpose Family History No Family History Records Found Mother Name Dates Details Family history of coronary a rtery disease(V17.3, Z82.49) Status:Active Family history of diabetes m ellitus(V18.0, Z83.3) Status:Active Father Name Dates Details Family history of coronary a rtery disease(V17.3, Z82.49) Status:Active Family history of diabetes m ellitus(V18.0, Z83.3) Status:Active Unknown Family Member Name Dates Details Family history of coronary a rtery disease: Mother, Father(V17.3, Z82.49) Status:Active Family history of diabetes m ellitus: Mother, Father(V18.0, Z83.3) Status:Active Unknown Family Member Name Dates Details Family history of coronary a rtery disease: Mother, Father(V17.3, Z82.49) Status:Active Family history of diabetes m ellitus: Mother, Father(V18.0, Z83.3) Status:Active Unknown Family Member Name Dates Details Family history of coronary a rtery disease: Mother, Father(V17.3, Z82.49) Status:Active Family history of diabetes m ellitus: Mother, Father(V18.0, Z83.3) Status:Active Unknown Family Member Name Dates Details Family history of coronary a rtery disease: Mother, Father(V17.3, Z82.49) Status:Active Family history of diabetes m ellitus: Mother, Father(V18.0, Z83.3) Status:Active Unknown Family Member Name Dates Details Family history of coronary a rtery disease: Mother, Father(V17.3, Z82.49) Status:Active Family history of diabetes m ellitus: Mother, Father(V18.0, Z83.3) Status:Active Unknown Family Member Name Dates Details Family history of coronary a rtery disease: Mother, Father(V17.3, Z82.49) Status:Active Family history of diabetes m ellitus: Mother, Father(V18.0, Z83.3) Status:Active Unknown Family Member Name Dates Details Family history of coronary a rtery disease: Mother, Father(V17.3, Z82.49) Status:Active Family history of diabetes m ellitus: Mother, Father(V18.0, Z83.3) Status:Active Unknown Family Member Name Dates Details Family history of coronary a rtery disease: Mother, Father(V17.3, Z82.49) Status:Active Family history of diabetes m ellitus: Mother, Father(V18.0, Z83.3) Status:Active Unknown Family Member Name Dates Details Family history of diabetes m ellitus: Mother, Father(V18.0, Z83.3) Status:Active Family history of coronary a rtery disease: Mother, Father(V17.3, Z82.49) Status:Active Unknown Family Member Name Dates Details Family history of coronary a rtery disease: Mother, Father(V17.3, Z82.49) Status:Active Family history of diabetes m ellitus: Mother, Father(V18.0, Z83.3) Status:Active Unknown Family Member Name Dates Details Family history of coronary a rtery disease: Mother, Father(V17.3, Z82.49) Status:Active Family history of diabetes m ellitus: Mother, Father(V18.0, Z83.3) Status:Active Unknown Family Member Name Dates Details Family history of diabetes m ellitus: Mother, Father(V18.0, Z83.3) Status:Active Family history of coronary a rtery disease: Mother, Father(V17.3, Z82.49) Status:Active Unknown Family Member Name Dates Details Family history of coronary a rtery disease: Mother, Father(V17.3, Z82.49) Status:Active Family history of diabetes m ellitus: Mother, Father(V18.0, Z83.3) Status:Active Unknown Family Member Name Dates Details Family history of coronary a rtery disease: Mother, Father(V17.3, Z82.49) Status:Active Family history of diabetes m ellitus: Mother, Father(V18.0, Z83.3) Status:Active Unknown Family Member Name Dates Details Family history of coronary a rtery disease: Mother, Father(V17.3, Z82.49) Status:Active Family history of diabetes m ellitus: Mother, Father(V18.0, Z83.3) Status:Active Unknown Family Member Name Dates Details Family history of coronary a rtery disease: Mother, Father(V17.3, Z82.49) Status:Active Family history of diabetes m ellitus: Mother, Father(V18.0, Z83.3) Status:Active Unknown Family Member Name Dates Details Family history of coronary a rtery disease: Mother, Father(V17.3, Z82.49) Status:Active Family history of diabetes m ellitus: Mother, Father(V18.0, Z83.3) Status:Active Unknown Family Member Name Dates Details Family history of coronary a rtery disease: Mother, Father(V17.3, Z82.49) Status:Active Family history of diabetes m ellitus: Mother, Father(V18.0, Z83.3) Status:Active Unknown Family Member Name Dates Details Family history of coronary a rtery disease: Mother, Father(V17.3, Z82.49) Status:Active Family history of diabetes m ellitus: Mother, Father(V18.0, Z83.3) Status:Active Unknown Family Member Name Dates Details Family history of coronary a rtery disease: Mother, Father(V17.3, Z82.49) Status:Active Family history of diabetes m ellitus: Mother, Father(V18.0, Z83.3) Status:Active Unknown Family Member Name Dates Details Family history of coronary a rtery disease: Mother, Father(V17.3, Z82.49) Status:Active Family history of diabetes m ellitus: Mother, Father(V18.0, Z83.3) Status:Active Unknown Family Member Name Dates Details Family history of coronary a rtery disease: Mother, Father(V17.3, Z82.49) Status:Active Family history of diabetes m ellitus: Mother, Father(V18.0, Z83.3) Status:Active Relationship Condition Age at Onset Recorded Date/T denilson mother Coronary artery disease Unknown father Coronary artery disease Unknown brother Coronary artery disease Unknown sister Coronary artery disease Unknown Advance Directives No Advanced Directives Records FoundLatest Code Status on File Code Status Date Activated Date Inactivated Comments Full Code 11/30/2022 6:10 AM Question Answer Comments Plan of Care: Code Status Discussion Completed Decision Maker: Patient Code Status History Code Status Date Activated Date Inactivated Comments Full Code 11/30/2022 1:52 AM 11/30/2022 6:10 AM Question Answer Comments Plan of Care: Code Status Discussion Not Compl eted Decision Maker: Provider Rationale: Patient condition do es not warrant discussion Advance Directive Response Recorded Date/ Time Advance Directives No October 06, 2019 11:20am Living Will No October 05 11:20am Power of Land Development Manager No October 05 020 11:20am Latest Code Status on File Code Status Date Activated Date Inactivated Comments Full Code 11/30/2022 6:10 AM 12/02/2022 3:40 PM Question Answer Comments Plan of Care: Code Status Discussion Completed Decision Maker: Patient Latest Code Status on File Code Status Date Activated Date Inactivated Comments Full Code 11/30/2022 6:10 AM 12/02/2022 3:40 PM Question Answer Comments Plan of Care: Code Status Discussion Completed Decision Maker: Patient Code Status History Code Status Date Activated Date Inactivated Comments Full Code 11/30/2022 1:52 AM 11/30/2022 6:10 AM Question Answer Comments Plan of Care: Code Status Discussion Not Compl eted Decision Maker: Provider Rationale: Patient condition do es not warrant discussion Date Activated Date Inactivated Comments 11/30/2022 6:10 AM 12/02/2022 3:40 PM Question Answer Comments Plan of Care: Code Status Discussion Completed Decision Maker: Patient Date Activated Date Inactivated Comments 11/30/2022 1:52 AM 11/30/2022 6:10 AM Question Answer Comments Plan of Care: Code Status Discussion Not Compl eted Decision Maker: Provider Rationale: Patient condition does not warra nt discussion Date Activated Date Inactivated Comments 11/30/2022 6:10 AM 12/02/2022 3:40 PM Question Answer Comments Plan of Care: Code Status Discussion Completed Decision Maker: Patient Date Activated Date Inactivated Comments 11/30/2022 1:52 AM 11/30/2022 6:10 AM Question Answer Comments Plan of Care: Code Status Discussion Not Compl eted Decision Maker: Provider Rationale: Patient condition does not warra nt discussion Chief Complaint 6 month follow up with labsfollow up with labsfollow up with testingfollow up with testingPatient is here today for a medicare wellness visit. Follow up on chronic medical problems.Patient is here today for a follow up on chronic medical problem.Patient is here today for a follow up on chronic medical problem.Patient is here today for a follow up on her lab work. BMI>35Patient is here today for a 2 week follow up.Pt is here for 6 month follow up. Medications Administered Section Inactive Administered Medications - up to 3 most recent administrations Medication Order MAR Action Action Date Dose Rate Site iron sucrose 200 mg in NaCl 0.9% 100 mL (VENOFER) 200 mg, INTRAVENOUS, at 400 mL/hr, Administer over 15 Minutes, ONCE, 1 dose, On Sun12/07/21 at 0930, Please conduct a 30 minute post dose observation. New Bag/Syringe/Bottle 12/07/2021 9:36 AM EDT 200 mg 400 mL/hr Inactive Administered Medications - up to 3 most recent administrations Medication Order MAR Action Action Date Dose Rate Site iron sucrose 200 mg in NaCl 0.9% 100 mL (VENOFER) 200 mg, INTRAVENOUS, at 400 mL/hr, Administer over 15 Minutes, ONCE, 1 dose, On Sun12/09/21 at 0900, Please conduct a 30 minute post dose observation. New Bag/Syringe/Bottle 12/09/2021 9:16 AM EDT 200 mg 400 mL/hr Inactive Administered Medications - up to 3 most recent administrations Medication Order MAR Action Action Date Dose Rate Site iron sucrose 200 mg in NaCl 0.9% 100 mL (VENOFER) 200 mg, INTRAVENOUS, at 400 mL/hr, Administer over 15 Minutes, ONCE, 1 dose, On Sun12/12/21 at 0900, Please conduct a 30 minute post dose observation. New Bag/Syringe/Bottle 12/12/2021 8:53 AM EST 200 mg 400 mL/hr Reason for Referral Specialty Diagnoses / Procedures Referred By Diana dominguez Referred To Contact Radiology Diagnoses Acute cough Upper respiratory tract infection, unspecified type Procedures XR chest 2 views Tori Roblero, DIRECTOR CAREER [employer] [address] [facility] [place] [address] Referral ID Status Reason Start Date Expiration Date Visits Requested Visits Authorized [id number] Authorized Perform Procedure 06/02/2022 11/29/2022 1 1 Specialty Diagnoses / Procedures Referred By Diana dominguez Referred To Contact Diagnoses ETD (Eustachian tube dysfunction), bilateral Procedures HEARING TEST/AUDIOGRAM COMPRE AUDIOMETRY THRESHOLD EVAL SP RECOGNIJ Diane Cronin, [address] [place] [address] [facility] [address] [place] [address] Referral ID Status Reason Start Date Expiration Date V isits Requested Visits Authorized [id number] Closed Auto-Generate d Referral 08/23/2022 11/21/2022 1 1 Specialty Diagnoses / Procedures Referred By Contac t Referred To Contact Diagnoses ACS (acute coronary syndrome) ([facility]) Procedures ECG 12 lead Corbin Bryan MD [address] [facility] [address] [place] [address] Referral ID Status Reason Start Date Expiration Date V isits Requested Visits Authorized [id number] Pending Review 12/26/2022 12/26/2023 1 1 Specialty Diagnoses / Procedures Referred By Contac t Referred To Contact Diagnoses Routine general medical examination at health care facility Procedures ECG 12 lead (Clinic Performed) Eitan Price MD [address] [facility] [place] [address] Referral ID Status Reason Start Date Expiration Date V isits Requested Visits Authorized [id number] Authorized 06/26/2023 06/25/2024 1 1 Specialty Diagnoses / Procedures Referred By Contac t Referred To Contact Radiology Diagnoses Chronic pain of both knees Procedures XR knees anteroposterior standing bilateral Eitan Price MD [address] [facility] [place] [address] Referral ID Status Reason Start Date Expiration Date Visits Requested Visits Authorized [id number] Authorized Perform Procedure 10/03/2023 10/02/2024 1 1 Chief Complaint and Reason for Visit Chief Complaint 6 M FU MURMUR Reason for Visit Aortic stenosis Coronary artery disease History of coronary artery stent placement Hyperlipemia Hypertension Paroxysmal atrial fibrillation Additional Source Comments INFORMATION SOURCE (unrecogn ized section and content) DATE CREATED AUTHOR 08/18/2018 [facility] DATE CREATED AUTHOR AUTHOR'S ORGANIZ ATION 12/12/2021 [facility] DATE CREATED AUTHOR AUTHOR'S ORGANIZ ATION 12/15/2021 [employer] DATE CREATED AUTHOR AUTHOR'S ORGANIZ ATION 01/14/2022 [facility] DATE CREATED AUTHOR AUTHOR'S ORGANIZ ATION 10/09/[address] [facility] DATE CREATED AUTHOR AUTHOR'S ORGANIZ ATION 02/15/2023 [facility] DATE CREATED AUTHOR AUTHOR'S ORGANIZ ATION 10/10/2023 [facility] DATE CREATED AUTHOR AUTHOR'S ORGANIZ ATION 10/15/2023 [facility] DATE CREATED AUTHOR AUTHOR'S ORGANIZ ATION 11/14/2023 [facility] DATE CREATED AUTHOR AUTHOR'S ORGANIZ ATION 12/01/2023 [facility] DATE CREATED AUTHOR AUTHOR'S ORGANIZ ATION 03/23/2024 [facility] DATE CREATED AUTHOR AUTHOR'S ORGANIZ ATION 05/14/2024 [facility] Ambulatory Source Comments (unrecognize d section and content) In the event this informatio n is protected by the Federal Confidentiality of Alcohol and Drug Abuse Patient Records regulations: The Federal rules restrict any use of the information to criminally investigate or prosecute any alcohol or drug abuse patient.[facility] the event this information is protected by the Federal Confidentiality of Alcohol and Drug Abuse Patient Records regulations: The Federal rules restrict any use of the information to criminally investigate or prosecute any alcohol or drug abuse patient.[facility] the event this information is protected by the Federal Confidentiality of Alcohol and Drug Abuse Patient Records regulations: The Federal rules restrict any use of the information to criminally investigate or prosecute any alcohol or drug abuse patient.[facility] the event this information is protected by the Federal Confidentiality of Alcohol and Drug Abuse Patient Records regulations: The Federal rules restrict any use of the information to criminally investigate or prosecute any alcohol or drug abuse patient.[facility] the event this information is protected by the Federal Confidentiality of Alcohol and Drug Abuse Patient Records regulations: The Federal rules restrict any use of the information to criminally investigate or prosecute any alcohol or drug abuse patient.[facility] the event this information is protected by the Federal Confidentiality of Alcohol and Drug Abuse Patient Records regulations: The Federal rules restrict any use of the information to criminally investigate or prosecute any alcohol or drug abuse patient.[facility] the event this information is protected by the Federal Confidentiality of Alcohol and Drug Abuse Patient Records regulations: The Federal rules restrict any use of the information to criminally investigate or prosecute any alcohol or drug abuse patient.[facility] Hospital[facility] the event this information is protected by the Federal Confidentiality of Alcohol and Drug Abuse Patient Records regulations: The Federal rules restrict any use of the information to criminally investigate or prosecute any alcohol or drug abuse patient.[facility] Hospital[facility] the event this information is protected by the Federal Confidentiality of Alcohol and Drug Abuse Patient Records regulations: The Federal rules restrict any use of the information to criminally investigate or prosecute any alcohol or drug abuse patient.[facility] HospitalIn the event this information is protected by the Federal Confidentiality of Alcohol and Drug Abuse Patient Records regulations: The Federal rules restrict any use of the information to criminally investigate or prosecute any alcohol or drug abuse patient.[facility] HospitalIn the event this information is protected by the Federal Confidentiality of Alcohol and Drug Abuse Patient Records regulations: The Federal rules restrict any use of the information to criminally investigate or prosecute any alcohol or drug abuse patient.[facility] HospitalIn the event this information is protected by the Federal Confidentiality of Alcohol and Drug Abuse Patient Records regulations: The Federal rules restrict any use of the information to criminally investigate or prosecute any alcohol or drug abuse patient.[facility] Reason for Visit (unrecogniz ed section and content) Specialty Diagnoses / Procedures Referred By Contac t Referred To Contact Diagnoses Iron deficiency Procedures IRON SUCROSE INJECTION PER 1 MG Jose Reynaga MD [facility] [address], [address] [place] [address] [facility] [address] [address] Referral ID Status Reason Start Date Expiration Date V isits Requested Visits Authorized [id number] Authorized 12/01/2021 02/04/2022 99 99 Reason Comments Follow-up Hospital follow [place] Admission 04/21/22Discharged 04/26/22Final dx pneumoniaPer pt she's still not feeling very good. Records were requested. Have not yet received them. Reason Comments Hearing Loss Specialty Diagnoses / Procedures Referred By Contac t Referred To Contact Diagnoses ETD (Eustachian tube dysfunction), bilateral Procedures HEARING TEST/AUDIOGRAM COMPRE AUDIOMETRY THRESHOLD EVAL SP NIESHAIJ Diane Cronin, [address] [place] [address] [facility] [address] [place] [address] Referral ID Status Reason Start Date Expiration Date V isits Requested Visits Authorized [id number] Closed Auto-Generate d Referral 08/23/2022 11/21/2022 1 1 Reason Comments Hearing Loss Reason Comments Follow Up Reason Comments Fall Specialty Diagnoses / Procedures Referred By Contac t Referred To Contact Diagnoses Subdural hemorrhage ([facility]) Procedures INPT Sintia Hernandez PA-C [address] [place] [address] [address] [place] [address] Referral ID Status Reason Start Date Expiration Date Visits Re quested Visits Authorized [id number] 1 1 Reason Comments Follow-up Reason Comments New Patient Visit Pt is a new visit. P t is a status post fall 11/29/22. Pt denies pain. Specialty Diagnoses / Procedures Referred By Contac t Referred To Contact Diagnoses ACS (acute coronary syndrome) ([facility]) Procedures ECG 12 lead Corbin Bryan MD [address] [place] [address] Referral ID Status Reason Start Date Expiration Date V isits Requested Visits Authorized [id number] Pending Review 12/26/2022 12/26/2023 1 1 Reason Comments Medicare Annual Wellness Visit Subsequen t Reason Comments New Specialty Diagnoses / Procedures Referred By Contac t Referred To Contact Radiology Diagnoses Chronic pain of both knees Procedures XR knees anteroposterior standing bilateral Eitan Price MD [address] [facility], [address] [place] [address] Referral ID Status Reason Start Date Expiration Date Visits Requested Visits Authorized [id number] Authorized Perform Procedure 10/03/2023 10/02/2024 1 1 Reason Comments Follow-up Care Teams (unrecognized sec tion and content) Manufacturer'S Service Representative Relationship Specialty Start Date End Date Eitan Price MD [address] [place], [place] [address] PCP - General Internal Medicine 08/14/18 Manufacturer'S Service Representative Relationship Specialty Start Date End Date Eitan Price MD [address] [place] [address] PCP - General Internal Medicine 08/14/18 Manufacturer'S Service Representative Relationship Specialty Start Date End Date Eitan Price MD [address] [place] [address] PCP - General Internal Medicine 08/14/18 Manufacturer'S Service Representative Relationship Specialty Start Date End Date Eitan Price MD [address] [facility], [address] [place] [address] PCP - General 06/09/14 Eitan Price MD [address] [facility], [address] [place] [address] PCP - [employer] PCP 02/05/22 Manufacturer'S Service Representative Relationship Specialty Start Date End Date Eitan Price MD [address] [place] [address] PCP - General Internal Medicine 08/14/18 Manufacturer'S Service Representative Relationship Specialty Start Date End Date Eitan Price MD [address] [place], [place] [id number] PCP - General Internal Medicine 08/14/18 Manufacturer'S Service Representative Relationship Specialty Start Date End Date Eitan Price MD [address] [facility], [address] [place] [address] PCP - General 06/09/14 Eitan rPice MD [address] [facility], [address] [place] [address] PCP - [employer] PCP 02/05/22 Team Status: Active Member Role Status Dates Dr. Eitan Price MD Family Provider Active Dr. Eitan Price MD Primary Care Provider Active Team Status: Inactive Member Role Status Dates Dr. Eitan Price MD Primary Care Provider, Referring Provider Active Dr. Art Melara MD Attending Provider Active Team Status: Inactive Member Role Status Dates Dr. Eitan Price MD Primary Care Provider Active Dr. Art Melara MD Attending Provider, Referring Pr ovider Active Manufacturer'S Service Representative Relationship Specialty Start Date End Date Eitan Price MD [address] [facility], [address] [place] [address] PCP - General 06/09/14 Eitan Price MD [address] [facility], [address] [place] [address] PCP - [employer] PCP 02/05/22 Chana Dave, tree fellerCigar Packer And Shader 12/04/22 Manufacturer'S Service Representative Relationship Specialty Start Date End Date Eitan Price MD [address] [facility], [address] [place] [address] PCP - General 06/09/14 Eitan Price MD [address] [facility], [address] [place] [address] PCP - [employer] PCP 02/05/22 Chana Dave, tree fellerCigar Packer And Shader 12/04/22 Manufacturer'S Service Representative Relationship Specialty Start Date End Date Eitan Price MD [address] [facility], [address] [place] [address] PCP - General 06/09/14 Eitan Price MD [address] [facility], [address] [place] [address] PCP - [employer] PCP 02/05/22 Manufacturer'S Service Representative Relationship Specialty Start Date End Date Eitan Price MD [address] [facility], [address] [place] [address] PCP - General 06/09/14 Eitan Price MD [address] [facility], [address] [place] [address] PCP - [employer] PCP 02/05/22 Manufacturer'S Service Representative Relationship Specialty Start Date End Date Eitan Price MD [address] [facility], [address] [place] [address] PCP - General Internal Medicine 08/14/18 Manufacturer'S Service Representative Relationship Specialty Start Date End Date Eitan Price MD [address] [facility], [address] [place] [address] PCP - General 06/09/14 Manufacturer'S Service Representative Relationship Specialty Start Date End Date Eitan Price MD [address] [facility], [address] [place] [address] PCP - General 07/13/14 Manufacturer'S Service Representative Relationship Specialty Start Date End Date Eitan Price MD [address] [facility], [address] [place] [address] PCP - General 06/09/14 Manufacturer'S Service Representative Relationship Specialty Start Date End Date Eitan Price MD [address] [facility], [address] [place] [address] PCP - General 06/09/14 Scheduled Active and Recently Administ ered Medications (unrecognized section and content) Medication Order 11/30/2022 12/01/2022 12/02/2022 acetaminophen (Tylenol) tablet 975 mg 975 mg, oral, Every 8 hours scheduled, First dose on Debora 11/30/22 at 0600 0600 (Given - Provider: Gagandeep Key RN)1446 (Given - Provider: Amira Richter RN)2124 (Given - Provider: Los Jean, MAYRA) 0711 (Given - Provider: Los Jean, RN)1330 (Given - Provider: Amira Richter, MAYRA)2125 (Given - Provider: Los Jean, RN) 0812 (Given - Provider: Amira Richter, MAYRA)1400 (Due)2200 (Due) amLODIPine (Norvasc) tablet 5 mg (CANCELED) 5 mg, oral, Daily, First dose on Debora 11/30/22 at 0900 0809 (Given - Provider: Amira Richter RN) 1051 (Given - Provider: Elizabeth Suarez RN) atorvastatin (Lipitor) tablet 80 mg 80 mg, oral, Daily, First dose on Sun11/29/22 at 1755 0809 (Given - Provider: Amira Richter RN) 1052 (Given - Provider: Elizabeth Suarez RN - Comment: other pt care) 0812 (Given - Provider: Amira Richter, RN) buPROPion XL (Wellbutrin XL) 24 hr tablet 300 mg 300 mg, oral, Daily, First dose on Sun11/30/22 at 0900, Do not crush, chew, or split. 0900 (Not Given - Provider: Amira Richter RN - Reason: Patient/family refused - Comment: patient states does not take this medication) 1051 (Given - Provider: Elizabeth Suarez RN - Comment: other pt care) 0900 (Not Given - Provider: Amira Richter RN - Reason: Patient/family refused - Comment: patient stated does not take this med at home) citalopram (CeleXA) tablet 40 mg 40 mg, oral, Every 24 hours, First dose on Sun11/30/22 at 0900 0812 (Given - Provider: Amira Richter RN) 1054 (Given - Provider: Elizabeth Suarez RN - Comment: other pt care) 0812 (Given - Provider: Amira Richter RN) furosemide (Lasix) tablet 40 mg 40 mg, oral, Daily, First dose on Sun11/29/22 at 1755 0900 (Not Given - Provider: Amira Richter RN - Reason: Other) 0900 (Not Given - Provider: Elizabeth Suarez RN - Reason: See Provider Order) 0900 (Not Given - Provider: Amira Richter RN - Reason: Other) losartan (Cozaar) tablet 100 mg 100 mg, oral, Daily, First dose on Sun11/30/22 at 0900 0807 (Given - Provider: Amira Richter RN) 1053 (Given - Provider: Elizabeth Suarez RN - Comment: other pt care) 0812 (Given - Provider: Amira Richter, RN) montelukast (Singulair) tablet 10 mg 10 mg, oral, Nightly, First dose on Sun11/29/22 at 2100 2125 (Given - Provider: Los Jean RN) 2125 (Given - Provider: Los Jean RN) 2100 (Due) NIFEdipine ER (Adalat CC) 24 hr tablet 60 mg 60 mg, oral, Daily, First dose on Sun12/01/22 at 1530, Give on an empty stomach. Do not crush, chew, or split. 1736 (Given - Provider: Amira Richter RN) 0811 (Given - Provider: Amira Richter RN) pantoprazole (ProtoNix) EC tablet 40 mg 40 mg, oral, Daily before breakfast, First dose on Debora 11/30/22 at 0700, Do not crush, chew, or split. 0811 (Given - Provider: Amira Richter RN - Comment: given with AM meds before breakfast) 0711 (Given - Provider: Los Jean RN) 0812 (Given - Provider: Amira Richter RN) Continuous Medication Order 11/30/2022 12/01/2022 12/02/2022 niCARdipine (Cardene) 40 mg in sodium chloride 200 mL (0.2 mg/mL) infusion (premix) 2.5-15 mg/hr (12.5-75 mL/hr), intravenous, Continuous, Starting on Sun11/29/22 at 1815, Titration Goal: Use Adult Parameters, Target Parameter: SBP less than 160, Initial dose: 5 mg/hr, Bidirectional Titration Dose: 2.5 mg/hr, Titration Frequency: Every 5 minutes 0355 (Stopped - Provider: Gagandeep Key RN) PRN Medication Order 11/30/2022 12/01/2022 12/02/2022 hydrALAZINE (Apresoline) injection 5 mg 5 mg, intravenous, Administer over 2 Minutes, Every 6 hours PRN, high blood pressure, SBP>160, Starting on Debora 11/30/22 at 0152, Second line for hypertension. Alternate with labetalol. Notify MD if 3 doses of antihypertensives given within 1 hour. 1130 (Given - Provider: Elizabeth Suarez RN)1419 (Given - Provider: Amira Richter RN - Comment: ok to give per Dr Starr) metoprolol tartrate (Lopressor) injection 5 mg 5 mg, intravenous, Every 6 hours PRN, HR >110, Starting on Debora 11/30/22 at 0152 oxyCODONE (Roxicodone) immediate release tablet 10 mg 10 mg, oral, Every 4 hours PRN, pain severe (7-10), first line, Starting on Debora 11/30/22 at 0152, If ordered PRN for pain, nurse is permitted to administer this medication for higher pain scores based on patient preference? Yes oxyCODONE (Roxicodone) immediate release tablet 5 mg 5 mg, oral, Every 4 hours PRN, pain moderate (4-6), first line, Starting on Debora 11/30/22 at 0152, If ordered PRN for pain, nurse is permitted to administer this medication for higher pain scores based on patient preference? Yes Goals (unrecognized section and content) Goals may be documented in a n alternate section FOR RECORDS PERTAINING TO PATIENTS WHO ARE OR HAVE BEEN ENROLLED IN A CHEMICAL DEPENDENCY/SUBSTANCEABUSE PROGRAM, SOME INFORMATION MAY BE OMITTED. This clinical summary was aggregated from multiple sources. Caution should be exercised in using it in the provision of clinical care. This summary normalizes information from multiple sources, and as a consequence, information in this document may materially change the coding, format and clinical context of patient data. In addition, data may be omitted in some cases. CLINICAL DECISIONS SHOULD BE BASED ON THE PRIMARY CLINICAL RECORDS. [employer] provides no warranty or guarantee of the accuracy or completeness of information in this document.
[2024-08-17 21:13] LABS: Magnesium 2.0 mg/dL (1.5-2.2)
[2024-08-17 21:43] LABS: Anion Gap 14 (5-15); BUN 31 mg/dL (4-19); BUN/Creat Ratio 17.3 RATIO (10-20); Calcium,Total 8.5 mg/dL (7.6-11.0); Carbon Dioxide 16.1 mmol/L (21.0-32.0); Chloride 109 mmol/L (98-108); Estimated Creatinine Clearance 21.64 ml/min (50-250); Glucose 119 mg/dL (70-99); Potassium 4.7 mmol/L (3.3-5.1); Troponin T High Sensitivity 16 ng/L (<=14)
[2024-08-17 22:00] VITALS: BP 143/78; PULSE 88; RESP 16; O2SAT 99
[2024-08-17 22:49] LABS: Troponin T High Sens 2 HR 17 ng/L (<=14)
[2024-08-17 23:00] VITALS: BP 158/71; PULSE 82
[2024-08-18] VITALS: BP 153/80; PULSE 71; RESP 20; O2SAT 100
[2024-08-18 00:34] LABS: Troponin T High Sens 4 HR 16 ng/L (<=14)
[2024-08-18 00:37] VITALS: BP 137/74; PULSE 84; RESP 14; TEMP 36.3; O2SAT 100
== END 2024-08-18 00:50 | disposition home or self-care (01) ==
PROVIDERS: Emergency Provider Emergency Medicine; PCP Internal Medicine; Visit Provider Emergency Medicine
DX: R07.9 Chest pain, unspecified (principal); I11.0 Hypertensive heart disease with heart failure; I50.9 Heart failure, unspecified; E11.9 Type 2 diabetes mellitus without complications; I25.10 Atherosclerotic heart disease of native coronary artery without angina pectoris; E78.5 Hyperlipidemia, unspecified; I25.2 Old myocardial infarction; Z95.5 Presence of coronary angioplasty implant and graft; Z82.49 Family history of ischemic heart disease and other diseases of the circulatory system
CPT/HCPCS: 71045; 80048; 83735; 84484; 85025; 93005; 99285; A4216

== ENCOUNTER 2024-08-18 14:27 | Emergency (ER) | payer MEDICARE, BC, SELFPAY ==
[2016-06-23 10:21] VITALS: BMI 39.4
[2024-08-18 14:28] VITALS: BP 148/81; PULSE 78; RESP 18; TEMP 36.6; O2SAT 95; BMI 38.0
--- NOTE | 2024-08-18 15:27 | EX.ED.DYSGE1 ---
HPI History of Present Illness Chief Complaint: Abn Labs Narrative Narrative: 88-year-old female past medical history of aortic stenosis, coronary artery disease, atrial fibrillation presents at the direction of her primary care provider, Dr. Eitan Price because of anemia. It was reported by her family that she had blood work on Sunday that was routine blood work. This was 3 days ago. They called her today and got the results and told her that her hemoglobin was 7.0 and that she needed to go to the emergency department. However, they were unaware that the patient was seen in the emergency department last night for chest pain related to anxiety and had blood work drawn again last night. She denies any black stool, no bleeding diathesis. She states that for quite some time she has been short of breath with dyspnea on exertion and occasionally fatigued. She does take a blood thinner for her atrial fibrillation but denies any hematemesis or other symptoms. Today, she states she feels well. [facility] Medical History Subdural hematoma, acute Coronary artery disease Aortic stenosis Anemia Paroxysmal atrial fibrillation New onset atrial fibrillation Dyspnea on exertion Atherosclerotic heart disease [place] coronary artery w/angina pectoris Type 2 diabetes mellitus without complications Hematoma of groin Obesity GERD (gastroesophageal reflux disease) Hiatal hernia History of colon cancer Asthma Depression Atherosclerotic heart disease of [place] coronary artery without angina pectoris Hypertension Nonsustained ventricular tachycardia Non-STEMI (non-ST elevated myocardial infarction) Hyperlipemia Home Medications ?Medication ?Instructions ?Recorded ?Last Taken ?Type cyanocobalamin (vitamin B-12) 1,000 mcg PO DAILY 06/22/16 08/18/24 History 1,000 mcg tablet montelukast 10 mg tablet 10 mg PO QHS 06/22/16 08/17/24 History omeprazole 20 mg capsule,delayed 20 mg PO DAILY 12/08/20 08/18/24 History release losartan 100 mg tablet 100 mg PO DAILY 12/14/21 08/18/24 History apixaban 2.5 mg tablet (Eliquis) 2.5 mg PO BID 07/26/23 08/18/24 History carvedilol 25 mg tablet 25 mg PO QDAY 07/26/23 08/18/24 History aspirin 81 mg tablet,delayed 81 mg PO QDAY 11/06/23 08/18/24 History release (Adult Aspirin Regimen) atorvastatin 40 mg tablet 40 mg PO QDAY #90 tabs 11/06/23 08/18/24 Rx fluoxetine 20 mg capsule 20 mg PO QDAY 11/06/23 08/18/24 History amlodipine 5 mg tablet 5 mg PO DAILY #90 tabs 01/28/24 08/18/24 Rx Allergy/AdvReac Type Severity Reaction Status Date / Time morphine Allergy Mild Hives Verified 08/18/24 15:34 Family History Mother CAD (coronary artery disease) Father CAD (coronary artery disease) Brother CAD (coronary artery disease) Sister CAD (coronary artery disease) Surgical History History of right and left heart catheterization (09/19/19) History of cholecystectomy (~2011) History of colectomy (~04/2001) History of History of coronary artery stent placement (06/23/16) Social History Smoking Status: Never smoker alcohol intake: never substance use type: does not use caffeine: Yes Type: coffee Number of servings: 4 ROS ROS ED ROS Narrative Review of systems positive for chronic shortness of breath and dyspnea on exertion with fatigue. No current chest pain, no shortness of breath, no black stool, no hematemesis, denies other bleeding diathesis. EXAM Physical Exam Narrative Exam Narrative: Afebrile. Vital signs noted. Nontoxic-appearing. Cardiovascular examination feels regular rate. Lungs are clear to auscultation bilaterally. Abdomen is soft, nontender, without guarding or rebound. No subconjunctival pallor, no central cyanosis. Const Vital Signs: 08/18/24 14:28 08/18/24 15:32 Temperature 97.8 F Temperature Source Oral Pulse Rate 78 Respiratory Rate 18 Respiratory Effort Short of Breath Blood Pressure 148/81 H Blood Pressure Mean 103 Pulse Ox 95 Oxygen Delivery Method Room Air MDM MDM MDM Narrative Medical decision making narrative: Differential diagnosis includes but not limited to anemia requiring transfusion versus chronic anemia/anemia of chronic disease. At lengthy discussion with the patient and her family/friend. She just had a chest pain workup which they thought was related to anxiety as her is recently . I reviewed her hemoglobin/hematocrit/CBC from last evening and she had a hemoglobin of 7.5. I will repeat the CBC to ensure that there is no precipitous dropping. I reviewed her laboratory work from today and she has normal white count of 8.2 and hemoglobin 7.5, stable when compared to yesterday's laboratory work. I do not feel that she requires emergent transfusion. At this point in time, she feels well and is motivated for discharge. She has an appointment with her primary care provider on Sunday, 2 days from now. She may need to restart iron pills, or she may require outpatient transfusion. Regardless I do feel she can be discharged safely home with follow-up. Return instructions reviewed. Patient and family agreeable to the plan. Disposition is discharged home in stable condition. History & Record Review Discussion w/independent historian: Patient and Family Additional record(s) reviewed:: Prior labs (Hemoglobin 7.5 yesterday, no significant change.) Lab Data Attestation: I reviewed the patient's lab results. Labs: Laboratory Results - last 24 hr 08/18/24 15:35 WBC 8.2 RBC 3.26 L Hgb 7.5 L Hct 26.0 L MCV 79.8 L MCH 23.0 L MCHC 28.8 L RDW Std Deviation 49.8 H RDW Coeff of Angelita 17.3 H Plt Count 233 MPV 10.9 Immature Gran % (Auto) 0.700 Neut % (Auto) 62.9 Lymph % (Auto) 20.8 Davis % (Auto) 11.4 H Eos % (Auto) 3.8 Baso % (Auto) 0.4 Absolute Neuts (auto) 5.2 Absolute Lymphs (auto) 1.71 Nucleated RBC % 0 Discharge Plan Triage Chief Complaint: Abn Labs ED Provider: Kal Fan Dx/Rx/DC Orders Clinical Impression: Anemia, Fatigue Instructions: ED Anemia, Type Not Specified (Adult) Prescriptions: No Action omeprazole 20 mg capsule,delayed release(DR/EC) 20 mg PO DAILY losartan 100 mg tablet 100 mg PO DAILY carvedilol 25 mg tablet 25 mg PO QDAY Eliquis 2.5 mg tablet 2.5 mg PO BID aspirin [Adult Aspirin Regimen] 81 mg tablet,delayed release (DR/EC) 81 mg PO QDAY fluoxetine 20 mg capsule 20 mg PO QDAY atorvastatin 40 mg tablet 40 mg PO QDAY Qty: 90 3RF cyanocobalamin (vitamin B-12) 1,000 MCG tablet 1,000 mcg PO DAILY Patient Comments: supplement montelukast 10 MG tablet 10 mg PO QHS Patient Comments: allergies amlodipine 5 mg tablet 5 mg PO DAILY Qty: 90 3RF Primary Care Provider: Eitan Price Referrals: Eitan Price MD [Primary Care Provider] - Keep Alanna appointment Activity Restrictions/Additional Instructions: Return to the emergency department with increasing shortness of breath, chest pain, black stool, new or worsening symptoms. Follow-up with your primary care provider as scheduled on Sunday. You can tell him that your hemoglobin is 7.5 both yesterday and today. He may need to start you on iron orally again. Print Language: Icelandic Disposition Disposition: Home, Self Care
[2024-08-18 15:44] LABS: Hematocrit 26.0 % (37-47); Hemoglobin 7.5 g/dL (12.0-15.0); Immature Granulocytes Count 0.060 X10^3/uL (0.0-0.0); Mean Corp Hgb Conc 28.8 g/dL (32-36); Mean Corpuscular Volume 79.8 fL (81-99); Mean Platelet Vol. 10.9 fl (6.2-12.0); NRBC Flagged by Analyzer 0 % (0-5); Platelet Count 233 K/mm3 (150-450); RBC Distribution Width CV 17.3 % (11.6-14.6); RBC Distribution Width SD 49.8 fl (35.1-43.9); Red Blood Count 3.26 M/mm3 (4.2-5.4); White Blood Count 8.2 K/mm3 (4.4-11.0)
[2024-08-18 16:05] VITALS: BP 150/57; PULSE 88; RESP 16; TEMP 36.5; O2SAT 98
--- OUTSIDE RECORDS SUMMARY | 2024-08-18 22:49 | XMS RPT_ITS | CCD ---
Author Organization [facility]iniSyn[facility] Care Team Providers Care Hand Flesher Name Role Phone Esperanza Fonseca Unavailable Unavailable Esperanza Fonseca Unavailable Unavailable Samanthais, Jarrodumi Y Unavailable Unavailable MD Van, Oscar Hair Unavailable MAYRA Beauchamp, Claire Viramontes Unavailable Unavailabl e Esperanza Fonseca Unavailable Unavailable MAYRA Beauchamp, Claire Viramontes Unavailable UnavailEitan Deluca Primary Care Provider Eitan Price Unavailable Eitan Price Unavailable Unavailable Jaime Chambers Y Unavailable Unavailable Eitan Price Unavailable Unavailable Unavailable Unavailable Unavailable Eitan Price MD Primary Care Provider SONYAJOSE Referring Unavailable EITAN PRICE Primary Care Unavailable JOSE REYNAGA Referring Unavailable EITAN PRICE Primary Care Unavailable JOSE REYNAGA Referring Unavailable EITAN PRICE Primary Care Unavailable Eitan Price MD Primary Care Provider Eitan Price MD Unavailable Eitan Price MD Primary Care Provider [phone] Albert, Dr. Eitan Swanson Primary Care Unavaila ble Albert, Dr. Eitan Swanson Referring Unavaila ble Albert, Dr. Eitan Swanson Attending Unavaila ble Kubermercedez, Ms. Tori Joshua Referring Unavaila ble Kubermercedez, Ms. Tori Joshua Attending Unavaila ble Albert, Dr. Eitan Swanson Primary Care Unavaila ble Albert, Dr. Laird Primary Care Provider [phone] Albert, Dr. Laird Referring Provider Kelton, Dr. Cordova Attending Provider Jolie NUNEZ, Chana Unavailable Unavailable MABEE, EITAN Abbasi Referring Unavailable MABEE, EITAN Abbasi Primary Care Unavailable MABEE, EITAN Abbasi Primary Care Unavailable FATUMA LEAL Consulting Unavailable CELENAVARJOSE SUGGS Admitting Unavailable JOSE PARKER Attending Unavailable ANT CHAVEZ Consulting Unavailable BUCCA, CORBIN W Referring Unavailable MABEE, EITAN Abbasi Primary Care Unavailable JAYERICA NICE Attending Unavailable MABEE, EITAN Abbasi Primary Care Unavailable MARK VAZQUEZ Attending Unavailable MABEE, EITAN Abbasi Primary Care Unavailable [place]abee Eitan GERARDO Primary Care Provider [phone] MABOSFIE, EITAN Abbasi Primary Care Unavailable MABEE, EITAN Abbasi Primary Care Unavailable MABEE, EITAN Abbasi Primary Care Unavailable MABEE, EITAN Abbasi Primary Care Unavailable ERICA THOMPSON E Referring Unavailable MABEE, EITAN Abbasi Primary Care Unavailable [place] Eitan GERARDO Primary Care Provider [phone] Albert, Eitan Primary Care Unavailable Kelton, Art Attending Unavailable Kelton, Art Referring Unavailable Mabsofie, Eitan Primary Care Unavailable Mabsofie, Eitan Referring Unavailable Kelton, Art Attending Unavailable Mabsofie, Eitan Primary Care Unavailable Mabee, Eitan Referring Unavailable Kelton, Art Attending Unavailable Kelton, Art Attending Unavailable Mabsofie, Eitan Primary Care Unavailable Mabee, Eitan Primary Care Unavailable Edmar GALLARDO, Terrie Attending Unavailable Mabsofie, Eitan Primary Care Unavailable Kelton, Art Attending Unavailable Kelton, Art Referring Unavailable MABSOFIE, EITAN Abbasi Attending Unavailable MABEE, EITAN Abbasi Primary Care Unavailable MABEE, EITAN Abbasi Attending Unavailable MABEE, EITAN Abbasi Primary Care Unavailable MABEE, EITAN Abbasi Attending Unavailable MABEE, EITAN Abbasi Primary Care Unavailable Mabee Dr. Eitan GERARDO Primary Care Provider Dr. Shakeel Rehman DO Emergency Provider Kal Fan MD Emergency Provider Allergies Allergy Classification Reported Allergen(s) Allergy Type Date of Onset Reaction(s) Facility (20 sources) morphine; Translations: [morphine] drug allergy 7 Other, Hives, Itching, Unknown [facility] Work Phone: Comment on above: hives (12 sources) NKDA; Translations: [NKDA] allergy to substance 7 [facility] Work Phone: (13 sources) Ibuprofen; Translations: [IBUPROFEN] Drug Allergy [address] [facility] Medications Current Medications Medication Drug Class(es) Dates Sig (Normalized) Sig (Original) acetaminophen 325 mg oral tablet (12 sources) Start: 11-30-2022 acetaminophen (Tylenol) tablet 975 mg Start: 07-10-2016 take 2 tablets by mo uth twice daily as needed ACETAMINOPHEN ER 650 MG CR-TABS Two tablets by mouth twice daily as needed ACETAMINOPHEN [id number] lCaire Beauchamp RN Start: 06-29-2016 End: 12-18-2017 take 325-650 mg by mouth every six hours as needed for pain Acetaminophen 325 MG tablet Discontinued 325 - 650 mg PO EVERY 6 HOURS NEEDED as needed for Pain 0 June 29, 2016 12:00am December 18, 2017 2:44pm amLODIPine 5 mg oral tablet (20 sources) Dihydropyridine Calcium Channel Silvana Start: 07-26-2023 End: 01-28-2024 take 1 tablet by mouth once daily Amlodipine 5 mg tablet Active 5 mg PO DAILY 90 3 January 28, 2024 4:20pm Start: 12-06-2022 End: 07-26-2023 take 1 tablet by mouth once daily Amlodipine 10 mg tablet Discontinued 10 mg PO DAILY 90 3 December 06, 2022 12:00am July 26, 2023 1:30pm Start: 06-28-2022 End: 06-28-2023 take 1 tablet by mouth once daily Amlodipine 5 mg tablet Discontinued 5 mg PO DAILY December 06, 2022 12:00am December 06, 2022 3:09pm Start: 07-06-2016 amLODIPine (No rvasc) 5 mg tablet once every 24 hours. 0 07/06/2016 Active Start: 06-29-2016 End: 12-14-2021 take 1 tablet by mouth once daily Amlodipine 5 MG tablet Discontinued 5 mg PO DAILY 30 0 July 06, 2016 10:03pm December 14, 2021 3:12pm apixaban 2.5 mg oral tablet (20 sources) Factor Xa Inhibitor Start: 05-07-2023 take 1 tablet by mouth twice daily Apixaban (Eliquis) 2.5 mg tablet Active 2.5 mg PO TWICE A DAY July 26, 2023 12:00am Start: 09-20-2019 End: 12-06-2022 take 1 tablet by mouth twice daily Apixaban (Eliquis) 2.5 mg tablet Discontinued 2.5 mg PO TWICE A DAY 180 3 November 09, 2021 9:30am December 06, 2022 8:26am aspirin 81 mg delayed release oral tablet (20 sources) Nonsteroidal Anti-inflammatory Drug Start: 07-10-2016 take 1 tablet by mouth once daily Aspirin (Adult Aspirin Regimen) 81 mg tablet,delayed release (DR/EC) Active 81 mg PO daily November 06, 2023 12:00am Start: 06-22-2016 End: 12-02-2022 aspirin, enteric coated (ASP IRIN, ENTERIC COATED) 81 mg EC tablet once every 24 hours. 07/10/2016 Active Start: 06-22-2016 End: 12-06-2022 take 1 tablet by mouth at bedtime Aspirin 81 MG tablet,chewable Discontinued 81 mg PO AT BEDTIME June 22, 2016 12:00am December 06, 2022 8:26am Aspirin 81 MG TA BS Quantity: 0 Refills: 0 Ordered: 09-Jul-2013 DO Active Aspirin 81 MG TA BS Refills: 0 Active atorvastatin 80 mg oral tablet (20 sources) HMG-CoA Reductase Inhibitor Start: 11-22-2023 take 1 tablet by mouth once daily atorvastatin (Lipitor) 80 mg tablet Indications: ASHD (arteriosclerotic heart disease) TAKE 1 TABLET BY MOUTH ONCE DAILY 90 tablet 3 11/22/2023 Active Start: 11-06-2023 End: 11-06-2023 take 1 tablet by mouth once daily Atorvastatin 80 mg tablet Discontinued 80 mg PO daily November 06, 2023 12:00am November 06, 2023 2:57pm Start: 07-26-2023 End: 11-06-2023 take 1 tablet by mouth once daily Atorvastatin 40 mg tablet Active 40 mg PO daily 90 3 November 06, 2023 12:00am Start: 06-11-2013 End: 07-26-2023 take 1 tablet by mouth at bedtime Atorvastatin 80 MG tablet Discontinued 80 mg PO AT BEDTIME June 22, 2016 12:00am July 26, 2023 1:55pm Start: 06-11-2013 atorvastatin ( Lipitor) 80 mg tablet once every 24 hours. 0 06/22/2016 Active azithromycin 250 mg oral tablet (1 [...] chew. 42 capsule 0 06/02/2022 07/02/2022 Active calcium carbonate 625 mg / cholecalciferol 125 unt oral tablet (3 sources) Vitamin D End: 11-29-2022 take 1 tablet by mouth twice daily at mealtime calcium-cholecalc iferol, D3, (OSCAL+D 250) 250 mg-3.125 mcg (125 unit) per tablet Take 1 tablet by mouth two times a day with meals. Active carvedilol 25 mg oral tablet (20 sources) alpha-Adrenergic Silvana, beta-Adrenergic Silvana Start: 07-26-2023 take 1 tablet by mouth once daily Carvedilol 25 mg tablet Active 25 mg PO daily July 26, 2023 12:00am Start: 07-16-2023 take 0.5 tablet by m outh twice [...] Sun11/29/22 at 2100 Start: 11-03-2019 End: 12-06-2022 Carvedilol 25 mg tablet Disc ontinued 12.5 mg PO TWICE A DAY November 03, 2019 6:10pm December 06, 2022 8:26am Start: 11-03-2019 End: 12-06-2022 take 12.5 mg by mouth twice daily Carvedilol Discontinued 12.5 MG PO TWICE A DAY November 03, 2019 5:10pm December 06, 2022 7:26am Start: 07-10-2016 End: 12-02-2022 carvedilol (COREG) 25 mg tab let every 12 hours. 07/10/2016 Active Start: 06-22-2016 End: 07-05-2017 take 1 tablet by mouth twice daily Carvedilol 12.5 MG tablet Discontinued 12.5 mg PO TWICE A DAY June 22, 2016 12:00am July 05, 2017 1:34pm Start: 06-11-2013 End: 11-03-2019 take 1 tablet by mouth twice daily Carvedilol 25 mg tablet Discontinued 25 mg PO TWICE A DAY July 05, 2017 12:00am November 03, 2019 6:11pm Start: 06-11-2013 take 0.5 tablet by m outh twice daily Carvedilol 25 MG Oral Tablet Take one-half tablet by mouth twice daily Quantity: 90 Refills: 3 Ordered: 09-Nov-2021 Eitan Price MD Start : 11-Jun-2013 Active clotrimazole 10 mg/ml topical cream (2 sources) Azole Antifungal Start: 07-09-2013 clotrimazole (LOTRIMIN) 1 % cream Clotrimazole 1 % External Cream APPLY 2-3 TIMES DAILY TO AFFECTED AREA(S). Quantity: 30 Refills: 0 Eitan Price MD Start : 09-Jul-2013 Active 07/09/2013 Active FLUoxetine 20 mg oral capsule (8 sources) Serotonin Reuptake Inhibitor Start: 02-03-2022 End: 12-02-2023 take 1 capsule by mouth once daily Fluoxetine 20 mg capsule Active 20 mg PO daily November 06, 2023 12:00am furosemide 40 mg oral tablet (20 sources) Loop Diuretic Start: 06-28-2022 End: 12-02-2022 take 40 mg by mouth once daily 40 mg, oral, Daily, First dose on Sun11/29/22 at 1755 Start: 12-14-2021 End: 12-06-2022 Furosemide 40 mg tablet Disc ontinued 60 mg PO DAILY December 14, 2021 3:12pm December 06, 2022 8:25am Start: 12-14-2021 End: 12-06-2022 take 60 mg by mouth once daily Furosemide Discontinued 60 MG PO DAILY December 14, 2021 2:12pm December 06, 2022 7:25am Start: 07-08-2018 End: 11-14-2018 take 1 tablet by mouth once daily Furosemide 20 mg tablet Discontinued 20 mg PO DAILY July 08, 2018 12:00am November 14, 2018 9:35am Start: 07-05-2018 End: 12-14-2021 take 1 tablet by mouth once daily Furosemide 40 mg tablet Discontinued 40 mg PO DAILY November 14, 2018 12:00am December 14, 2021 3:15pm Start: 07-05-2018 furosemide (La six) 40 mg tablet once every 24 hours. 0 07/05/2018 Active Start: 07-05-2018 take 1.5 tablets by mouth once daily Furosemide 40 MG Oral Tablet TAKE 1.5 TABLET Daily Quantity: 0 Refills: 0 Ordered: 14-Dec-2021 DO Start : 14-Dec-2021 Active Start: 07-05-2018 take 2 tablets by mo ut once daily Furosemide 40 MG Oral Tablet [...] a day as needed. 0 08/24/2021 Active losartan potassium 100 mg oral tablet (20 sources) Angiotensin 2 Receptor Silvana Start: 11-30-2022 take 100 mg by mouth once daily 100 mg, oral, Daily, First dose on Debora 11/30/22 at 0900 Start: 12-03-2017 End: 09-06-2023 take 1 tablet by mouth once daily Losartan 100 mg tablet Active 100 mg PO DAILY December 14, 2021 1:00am Start: 07-05-2017 End: 12-14-2021 take 1 tablet by mouth once daily Losartan (Cozaar) 25 mg tablet Discontinued 25 mg PO daily 04 01December 03, 2017 3:07pm December 18, 2017 3:13pm losartan (Cozaar ) 25 mg tablet once every 24 hours. 0 Active methylPREDNISolone (1 source) Corticosteroid Start: 06-02-2022 [...] tablet (20 sources) Leukotriene Receptor Antagonist Start: 06-22-2016 montelukast (Singulair) 10 mg tablet once every 24 hours. 0 06/22/2016 Active Start: 02-27-2013 End: 06-28-2023 take 1 tablet by mouth once daily at bedtime montelukast (Singulair) 10 mg tablet Indications: Chronic rhinitis TAKE 1 TABLET BY MOUTH ONCE DAILY AT BEDTIME 90 tablet 3 08/08/2023 Active 200 ml niCARdipine hydrochloride 0.2 mg/ml [...] capsule (20 sources) Proton Pump Inhibitor Start: 12-08-2020 take 1 capsule by mouth once daily Omeprazole 20 mg capsule,delayed release(DR/EC) Active 20 mg PO DAILY December 08, 2020 12:00am Start: 07-10-2016 take 1 tablet by eliot th once daily PRILOSEC 20 MG CPDR One tablet by mouth daily OMEPRAZOLE [id number] Claire Beauchamp RN Start: 06-22-2016 End: 07-08-2018 take 1 capsule by mouth once daily Omeprazole 20 MG capsule Discontinued 20 mg PO DAILY June 22, 2016 12:00am July 08, 2018 1:38pm oxyCODONE hydrochloride 5 mg oral tablet (2 sources) Opioid Agonist Start: 11-30-2022 take 1 tablet by mouth every four hours as needed oxyCODONE (Roxicodone) immediate release tablet 10 mg Start: 11-30-2022 take 1 tablet by eliot th every four hours as needed oxyCODONE (Roxicodone) immediate release tablet 5 mg pantoprazole 40 mg delayed release oral tablet (9 sources) Proton Pump Inhibitor Start: 11-30-2022 take 40 mg by mouth once daily before breakfast 40 mg, oral, Daily before breakfast, First dose on Debora 11/30/22 at 0700 Do not crush, chew, or split. Start: 10-24-2019 End: 12-08-2020 take 1 tablet by mouth once daily Pantoprazole 40 mg tablet,delayed release (DR/EC) Discontinued 40 mg PO DAILY October 24, 2019 12:00am December 08, 2020 1:21pm Start: 07-08-2018 pantoprazole ( ProtoNix) 40 mg EC tablet once every 24 hours. 0 07/08/2018 Active Start: 07-08-2018 End: 08-07-2019 take 1 tablet by mouth once daily Pantoprazole 40 mg tablet,delayed release (DR/EC) Discontinued 40 mg PO DAILY July 08, 2018 12:00am August 07, 2019 3:24pm Start: 07-02-2018 take 1 tablet by eliot th once daily Pantoprazole Sodium 40 MG Oral Tablet Delayed Release TAKE 1 TABLET DAILY. Refills: 3 Start : 02-Jul-2018 Active vitamin b12 1 mg oral tablet (20 sources) Vitamin B12 Start: 12-28-2014 take 1 tablet by mouth once daily Cyanocobalamin (Vitamin B-12) 1,000 MCG tablet Active 1000 ug PO DAILY June 22, 2016 12:00am Completed/Discontinued Medications Medication Drug Class(es) Dates Sig (Normalized) Sig (Original) ALPRAZolam 0.25 mg oral tablet (20 sources) Benzodiazepine Start: 07-15-2019 End: 11-29-2022 take 1 tablet by mouth four times daily Alprazolam 0.25 mg tablet Discontinued 0.25 mg PO 4 TIMES DAILY July 12, 2021 12:00am December 14, 2021 3:14pm bacitracin zinc 0.5 unt/mg topical ointment (1 source) Start: 11-29-2022 End: 11-29-2022 bacitracin ointment 24 hr buPROPion hydrochloride 150 mg extended release oral tablet (20 sources) Aminoketone Start: 08-18-2024 End: 08-18-2024 take 1 tablet by mouth once daily Bupropion Hcl 150 mg tablet extended release 24 hr Discontinued 150 mg PO DAILY August 18, 2024 12:00am August 18, 2024 3:36pm Start: 06-25-2023 End: 06-24-2024 take 1 tablet by mouth once daily Bupropion Hcl 150 mg tablet extended release 24 hr Discontinued 150 mg PO daily July 26, 2023 12:00am November 06, 2023 9:01am Start: 11-30-2022 take 300 mg by mouth [...] Start: 08-02-2021 take 1 tablet by eliot every twenty-four hours buPROPion XL (WELLBUTRIN XL) 300 mg 24 hr tablet Take by mouth every 24 hours. 08/02/2021 Active Start: 08-02-2021 take 1 tablet by eliot th once daily buPROPion XL (Wellbutrin XL) 300 mg 24 hr tablet Take 1 tablet (300 mg) by mouth once daily. 0 08/02/2021 Active cefdinir 300 mg oral capsule (4 sources) Cephalosporin Antibacterial Start: 09-11-2019 End: 10-24-2019 take 1 capsule by mouth twice daily Cefdinir 300 mg capsule Discontinued 300 mg PO TWICE A DAY September 11, 2019 12:00am October 24, 2019 1:04pm Start: 07-29-2019 Cefdinir 300 M G Oral Capsule Quantity: 28 Refills: 0 Ordered: 29-Jul-2019 DO Start : 29-Jul-2019 Complete cephalexin 500 mg oral capsule (3 sources) Cephalosporin Antibacterial Start: 07-06-2016 End: 07-05-2017 take 1 capsule by mouth every eight hours Cephalexin 500 MG capsule Discontinued 500 mg PO EVERY 8 HOURS 9 0 July 06, 2016 12:00am July 05, 2017 1:35pm cholecalciferol 0.025 mg oral tablet (3 sources) Vitamin D Start: 06-21-2022 End: 12-06-2022 take 1 tablet by mouth once daily Cholecalciferol (Vitamin D3) 25 mcg (1,000 unit) tablet Discontinued 25 ug PO DAILY June 21, 2022 12:00am December 06, 2022 8:26am citalopram 40 mg oral tablet (20 sources) Serotonin Reuptake Inhibitor Start: 07-26-2023 End: 11-06-2023 Citalopram 40 mg tablet Discontinued 20 mg PO daily July 26, 2023 12:00am November 06, 2023 9:01am Start: 05-28-2023 End: 11-29-2023 take 1 tablet [...] Taking at Discharge) Start: 12-08-2020 End: 07-12-2021 Citalopram 40 mg tablet Disc ontinued 20 mg PO DAILY December 08, 2020 12:00am July 12, 2021 2:08pm Start: 12-08-2020 End: 07-12-2021 take 20 mg by mouth once daily Citalopram Discontinued 20 MG PO DAILY December 07, 2020 11:00pm July 12, 2021 1:08pm Start: 07-08-2018 End: 10-24-2019 Citalopram 40 mg tablet Disc ontinued 20 mg PO DAILY July 08, 2018 12:00am October 24, 2019 1:03pm Start: 07-08-2018 End: 10-24-2019 take 20 mg by mouth once daily Citalopram Discontinued 20 MG PO DAILY July 07, 2018 11:00pm October 24, 2019 12:03pm Start: 06-22-2016 End: 07-08-2018 take 1 tablet by mouth once daily Citalopram 20 MG tablet Discontinued 20 mg PO DAILY June 22, 2016 12:00am July 08, 2018 1:36pm Start: 02-27-2013 End: 12-06-2022 take 1 tablet by mouth once daily Citalopram 40 mg tablet Discontinued 40 mg PO DAILY July 12, 2021 2:06pm December 06, 2022 8:26am Start: 02-27-2013 citalopram (Ce Naima) 40 mg tablet once every 24 hours. 0 02/27/2013 Active clopidogrel 75 mg oral tablet (16 sources) P2Y12 Platelet Inhibitor Start: 07-06-2016 clopidogrel (Plavix) 75 mg tablet once every 24 hours. 0 07/06/2016 Active Start: 06-29-2016 End: 09-20-2019 take 1 tablet by mouth once daily Clopidogrel 75 MG tablet Discontinued 75 mg PO DAILY 30 4 July 06, 2016 10:03pm September 20, 2019 11:39am docusate sodium 50 mg / sennosides, shelter 8.6 mg oral tablet (3 sources) Start: 06-29-2016 End: 07-06-2016 take 1 tablet by mouth twice daily Sennosides-Docusate Sodium (Stool Softener-Stimulant Laxat) 1 TABLET tablet Discontinued 1 {tbl} PO TWICE A DAY 0 June 29, 2016 12:00am July 06, 2016 10:03pm famotidine 20 mg oral tablet (20 sources) Histamine-2 Receptor Antagonist Start: 12-08-2020 End: 07-12-2021 take 1 tablet by mouth once daily Famotidine 20 mg tablet Discontinued 20 mg PO DAILY December 08, 2020 12:00am July 12, 2021 2:08pm Start: 11-10-2020 End: 12-14-2021 take 1 tablet by mouth twice daily Famotidine 20 mg tablet Discontinued 20 mg PO TWICE A DAY July 12, 2021 2:08pm December 14, 2021 3:14pm ferrous sulfate 325 mg oral tablet (20 sources) Start: 11-09-2021 End: 12-06-2022 Ferrous Sulfate 325 mg (65 m g iron) tablet Discontinued 325 mg PO .3XW December 14, 2021 1:00am December 06, 2022 8:26am Start: 07-10-2016 End: 08-18-2024 take 1 tablet by mouth once daily Ferrous Sulfate 325 mg (65 mg iron) tablet Discontinued 325 mg PO DAILY December 06, 2022 8:24am August 18, 2024 3:36pm Fish Oil 500 MG Oral Capsule (3 [...] insulin aspart, human 100 unt/ml pen injector (3 sources) Insulin Analog Start: 06-29-2016 End: 07-06-2016 Insulin Aspart U-100 (Novolog Flexpen U-100 Insulin) 100 UNITS/ML Flexpen Discontinued 0 U SC BEFORE MEALS AND AT BEDTIME 0 June 29, 2016 12:00am July 06, 2016 10:02pm 10 ml lidocaine hydrochloride 10 mg/ml injection (4 sources) Antiarrhythmic, Amide Local Anesthetic Start: 11-13-2023 End: 11-13-2023 lidocaine (PF) 10 mg/mL (1 %) 5 mL injection (XYLOCAINE) Start: 11-13-2023 End: 11-13-2023 5 mL, Injection - FOR ORTHO USE ONLY, ONCE, 1 dose, Starting on Sun11/13/23 at 0947, Until Sun11/13/23 at 0947 lisinopril 40 mg oral tablet (20 sources) Angiotensin Converting Enzyme Inhibitor Start: 12-18-2017 End: 12-18-2017 take 1 tablet by mouth once daily Lisinopril 40 mg tablet Discontinued 40 mg PO DAILY December 18, 2017 1:00am December 18, 2017 3:12pm Start: 06-29-2016 End: 07-05-2017 take 1 tablet by mouth once daily Lisinopril 40 MG tablet Discontinued 40 mg PO DAILY 30 0 July 06, 2016 10:03pm July 05, 2017 1:36pm Start: 12-06-2015 End: 06-29-2016 take 1 tablet by mouth once daily Lisinopril 20 MG tablet Discontinued 20 mg PO DAILY June 22, 2016 12:00am June 29, 2016 8:31am LORazepam 0.5 mg oral tablet (5 sources) Benzodiazepine Start: 07-26-2023 End: 11-06-2023 take 1 tablet by mouth once daily as needed Lorazepam 0.5 mg tablet Discontinued 0.5 mg PO DAILY as needed July 26, 2023 12:00am November 06, 2023 9:02am Start: 07-04-2023 take 1 tablet by eliot three times daily as needed for anxiety LORazepam (Ativan) 0.5 mg tablet Indications: Anxiety Take 1 tablet (0.5 mg) by mouth 3 times a day as needed for anxiety. 30 tablet 07/04/2023 Active melatonin 3 mg oral tablet (20 sources) Start: 06-29-2016 End: 07-05-2017 take 1 tablet by mouth at bedtime Melatonin 3 MG tablet Discontinued 3 mg PO AT BEDTIME 30 0 July 06, 2016 10:03pm July 05, 2017 1:36pm menthol 0.0044 mg/mg / zinc oxide 0.2 mg/mg topical ointment (3 sources) Start: 07-06-2016 End: 07-05-2017 Menthol-Zinc Oxide 1 APPLIC ointment Discontinued 1 NMA TOPICAL THREE TIMES A DAY 1 0 July 06, 2016 12:00am July 05, 2017 1:36pm Start: 07-06-2016 End: 07-05-2017 Menthol-Zinc Oxide Discontin ued 1 APPLIC TOPICAL THREE TIMES A DAY 1 July 05, 2016 11:00pm July 05, 2017 12:36pm metFORMIN hydrochloride 500 mg oral tablet (20 sources) Biguanide Start: 08-18-2024 End: 08-18-2024 take 1 tablet by mouth once daily Metformin 500 mg tablet Discontinued 500 mg PO DAILY August 18, 2024 12:00am August 18, 2024 3:36pm Start: 06-28-2022 End: 11-06-2023 take 1 tablet by mouth once daily Metformin 500 mg tablet Discontinued 500 mg PO DAILY December 06, 2022 8:25am November 06, 2023 9:02am Start: 06-22-2016 metFORMIN (Glu cophage) 500 mg tablet every 12 hours. 0 06/22/2016 Active Start: 07-10-2013 End: 12-06-2022 take 1 tablet by mouth twice daily Metformin 500 MG tablet Discontinued 500 mg PO TWICE A DAY June 22, 2016 12:00am December 06, 2022 8:26am methylPREDNISolone 4 MG Oral Tablet Therapy Pack (1 source) Start: 01-09-2022 methylPREDNISolone 4 MG Oral Tablet Therapy Pack UAD Quantity: 1 Refills: 0 Ordered: 09-Jan-2022 Eitan Price MD Start : 09-Jan-2022 Active metroNIDAZOLE 500 mg oral tablet (1 source) Nitroimidazole Antimicrobial Start: 07-29-2019 metroNIDAZOLE 500 MG Oral Tablet Quantity: 42 Refills: 0 Ordered: 29-Jul-2019 DO Start : 29-Jul-2019 Complete [place]-3 Fatty Acids (Fish Oil Concentrate) 1,000 mg capsule (3 sources) Start: 07-08-2018 End: 12-08-2020 take 1 capsule by mouth three times daily [place]-3 Fatty Acids (Fish Oil Concentrate) 1,000 mg capsule Discontinued 1000 mg PO THREE TIMES A DAY July 08, 2018 12:00am December 08, 2020 1:21pm Start: 07-08-2018 End: 12-08-2020 take 1 capsule by mouth three times daily [place]-3 Fatty Acids (Fish Oil Concentrate) 1,000 mg capsule Discontinued 1000 MG PO THREE TIMES A DAY July 07, 2018 11:00pm December 08, 2020 12:21pm penciclovir 10 mg/ml topical cream (1 source) Herpesvirus Nucleoside Analog DNA Polymerase Inhibitor Start: 03-14-2013 Denavir 1 % Externa l Cream Quantity: 5 Refills: 0 Start : 14-Mar-2013 Active POLYETHYLENE GLYCOL 3350 (4 sources) Osmotic Laxative Start: 07-10-2016 MIRALAX PACK Take as directed POLYETHYLENE GLYCOL 3350 [id number] Claire Beauchamp RN Start: 07-06-2016 End: 07-05-2017 take 17 g by mouth once daily Polyethylene Glycol 3350 17 GM packet Discontinued 17 g PO DAILY 30 0 July 06, 2016 12:00am July 05, 2017 1:36pm POLYETHYLENE GLYCOL 3350 (13 sources) Start: 07-10-2016 End: 07-11-2016 MIRALAX PACK Take as directe d POLYETHYLENE GLYCOL 3350 [id number] Oscar Rondon MD Start: 07-10-2016 MIRALAX PACK T mily as directed POLYETHYLENE GLYCOL 3350 [id number] Claire Beauchamp RN POLYSACCHARIDE IRON COMPLEX (11 sources) Start: 07-10-2016 take 1 tablet by mouth once daily FERREX 150 150 MG CAPS One tablet by mouth daily POLYSACCHARIDE IRON COMPLEX [id number] Claire Beauchamp RN Start: 07-06-2016 End: 12-18-2017 take 1 capsule by mouth once daily at mealtime Polysaccharide Iron Complex 150 MG capsule Discontinued 150 mg PO DAILY WITH MEALS July 06, 2016 12:00am December 18, 2017 2:47pm sulfamethoxazole 400 mg / trimethoprim 80 mg [...] Problem Date Documented Da te Episodic/Chronic Acute cerebrovascular disease (18 sources) Hemorrhage into subdural space of neuraxis; Translations: [Nontraumatic subdural hemorrhage, unspecified] Onset: 3 Resolved: 3 11-29-2022 Chronic Acute myocardial infarction (20 sources) Non-ST elevation [...] disease (20 sources) Atherosclerotic heart disease of [place] coronary artery without angina pectoris; Translations: [Coronary arteriosclerosis] Onset: 7 07-10-2016 Chronic Comment on above: PCI/SHEILA to LAD w/ 3. 0 x 16 mm Synergy 06/23/2016 Deficiency and other anemia (20 sources) Anemia; [...] [Mitral valve disorders] Onset: 3 06-01-2022 Chronic Malaise and fatigue (1 source) Fatigue; Translations: [Other fatigue] 08-18-2024 Episodic Mood disorders (20 sources) Depressive disorder; Translations: [Depressive disorder, not elsewhere classified] Onset: 3 06-01-2022 Chronic Mood disorders (2 sources) Mood disorders; Translations: [Depression, unspecified] Onset: 3 Nonspecific chest pain (15 sources) Chest pain; Translations: [Chest pain, unspecified] Onset: 3 06-01-2022 Episodic Nutritional deficiencies (10 sources) Vitamin D deficiency; Translations: [Vitamin D deficiency, unspecified] Onset: 3 06-02-2022 Chronic Nutritional deficiencies (20 sources) Iron deficiency; Translations: [Iron deficiency] Onset: 2 Episodic Osteoarthritis (20 sources) Osteoarthritis of foot joint; Translations: [Osteoarthrosis, unspecified whether generalized or localized, ankle and foot] Onset: 3 06-01-2022 Chronic Other and ill-defined heart disease (1 source) Other ill-defined heart diseases; Translations: [Other ill-defined heart diseases] Onset: 4 Chronic Other and ill-defined heart disease (2 sources) Diastolic dysfunction; Translations: [Other ill-defined heart diseases] 11-06-2023 Chronic Other connective tissue disease (16 sources) Pain in lower limb; Translations: [Pain in limb] Episodic Other ear and sense organ disorders (3 sources) Sensorineural hearing loss, bilateral; Translations: [Sensorineural hearing loss, bilateral] 08-31-2022 Chronic Other gastrointestinal disorders (20 sources) Personal history of other diseases of the digestive system; Translations: [History of gastroesophageal reflux disease] Episodic Other lower respiratory disease (20 sources) Dyspnea on exertion; Translations: [Other respiratory abnormalities] Onset: 3 Resolved: 0 06-01-2022 Episodic Other lower respiratory disease (1 source) [...] with radiculopathy, lumbar region] Onset: 3 Chronic Superficial injury; contusion (13 sources) Hematoma of groin; Translations: [Contusion of abdominal wall, initial encounter] Onset: 3 06-01-2022 Episodic Unclassified (7 sources) Placement of stent in coronary artery ; Translations: [Presence of coronary angioplasty implant and graft] Onset: 7 07-10-2016 Unclassified (1 source) Long-term drug therapy; Translations: [Other shelter (current) drug therapy] Onset: 7 07-10-2016 Unclassified (2 sources) Acute cough; Translations: [Acute cough] Onset: 3 Unclassified (2 sources) Traumatic subdural hemorrhage with loss of consciousness status unknown, initial encounter ([facility]); Translations: [Traumatic subdural hemorrhage with loss of consciousness status unknown, initial encounter ([facility])] Onset: 3 Past or Other Problems Problem Classification Problem Date Documented Da te Episodic/Chronic Abdominal hernia (10 sources) Hiatal hernia; Translations: [Diaphragmatic hernia without obstruction or gangrene] Onset: 3 06-01-2022 Episodic Abdominal pain (13 sources) Epigastric pain; Translations: [Abdominal pain, epigastric] Onset: 3 06-01-2022 Episodic Acute posthemorrhagic anemia (18 sources) Acute posthemorrhagic [...] urine] Onset: 3 Resolved: 0 06-01-2022 Episodic Other aftercare (7 sources) Other shelter (current) drug therapy; Translations: [Other shelter (current) drug therapy] Onset: 7 07-10-2016 Episodic [...] Onset: 2 06-01-2022 Episodic Residual codes; unclassified (13 sources) History of cardiac catheterization; Translations: [Other specified postprocedural states] Onset: 0 06-01-2022 Episodic Comment on above: Normal LV size, wall motion,and systolic function. Perserved Left Ventricular systolic function with normal EDP. LVEF: by LV gram 75 %. Normal Left Ventricular End Diastolic Pressure. The patient has normal pulmonary hemodynamics. RECOMMENDATIONS: D/c plavix, start eliquis 2.5 mg po bid and DCCV electively in 3 weeks. Per DJN @ [facility] 09/19/2019 Residual codes; unclassified (9 sources) Edema; Translations: [Edema, unspecified] Onset: 2 06-01-2022 Episodic Spondylosis; intervertebral disc disorders; other back problems (20 sources) Sciatica; Translations: [Sciatica] Onset: 3 06-01-2022 Episodic Unclassified (1 source) History of clinical finding in subject; Translations: [History of abdominal pain] Unclassified (1 source) Acute cough; Translations: [Acute cough] Onset: 3 Unclassified (9 sources) Onset: 3 Resolved: 4 06-28-2022 Unclassified (2 sources) Traumatic subdural hemorrhage with loss of consciousness status unknown, initial encounter ([facility]); Translations: [Traumatic subdural hemorrhage with loss of consciousness status unknown, initial encounter ([facility])] Onset: 3 NEGATED: Highlighted row has not occurred!Residual codes; unclassified (6 sources) Disease Episodic Results Test Name Value Interpretation Reference Range Facility Absolute lymphocyte countOrd ered By: Kal Fan on 08-18-2024 Lymphocytes Auto (Unsp spec) [#/Vol] 1.71 10*3/uL 0.83-4.51 [facility] Absolute neutrophil countOrd ered By: Kal Fan on 08-18-2024 Neutrophils (Bld) [#/Vol] 5.2 10*3/uL 2.0-7.7 [facility] Automated lymphocyte count a s percentage of total leukocytesOrdered By: Kal Fan on 08-18-2024 Lymphocytes/100 WBC Auto (Unsp spec) 20.8 % 19-41 [facility] Basophil percentageOrdered B y: Kal Fan on 08-18-2024 Basophils/100 WBC (Bld) 0.4 % 0-1 [facility] Eosinophil percentageOrdered By: Kal Fan on 08-18-2024 Eosinophils/100 WBC (Bld) 3.8 % 0-5 [facility] Erythrocyte distribution wid th ratioOrdered By: Kal Fan on 08-18-2024 Erythrocyte distribution width (RBC) [Ratio] 17.3 % High 11.6-14.6 [facility] Erythrocyte distribution wid th standard deviationOrdered By: Kal Fan on 08-18-2024 Erythrocyte distribution width (RBC) [Ratio] 49.8 fl High 35.1-43.9 [facility] Hematocrit Auto (Bld) [Volum e fraction]Ordered By: Kal Fan on 08-18-2024 Hematocrit (Bld) [Volume fraction] 26.0 % Low 37-47 [facility] Hemoglobin measurementOrdere d By: Kal Fan on 08-18-2024 Hemoglobin (Bld) [Mass/Vol] 7.5 g/dL Low 12.0-15.0 [facility] Immature granulocytes/100 WB C Auto (Bld)Ordered By: Kal Fan on 08-18-2024 Immature granulocytes/100 WBC (Bld) 0.700 % 0.0-0.9 [facility] Comment on above: IG% - Immature Granu locytes (promyelocytes, myelocytes and metamyelocytes) > 1% indicates that a LEFT SHIFT is Present. MCV (mean corpuscular volume ) determinationOrdered By: Kal Fan on 08-18-2024 MCV (RBC) [Entitic vol] 79.8 fL Low 81-99 [facility] Mean corpuscular hemoglobin (MCH) determinationOrdered By: Kal Fan on 08-18-2024 MCH (RBC) [Entitic mass] 23.0 pg Low 27.0-32.0 [facility] Mean corpuscular hemoglobin concentration (MCHC) determinationOrdered By: Kal Fan on 08-18-2024 MCHC (RBC) [Mass/Vol] 28.8 g/dL Low 32-36 [facility] Mean platelet volume determi nationOrdered By: Kal Fan on 08-18-2024 Platelet mean volume (Bld) [Entitic vol] 10.9 fL 6.2-12.0 [facility] Monocyte percentageOrdered B y: Kal Fan on 08-18-2024 Monocytes/100 WBC (Bld) 11.4 % High 0-10 [facility] Neutrophil percentageOrdered By: Kal Fan on 08-18-2024 Neutrophils/100 WBC (Bld) 62.9 % 47-70 [facility] Nucleated red blood cell per centageOrdered By: Kal Fan on 08-18-2024 Nucleated RBC/100 WBC (Bld) [Ratio] 0 % 0-5 [facility] Platelet countOrdered By: Jorge Fan on 08-18-2024 Platelets (Bld) [#/Vol] 233 10*3/uL 150-450 [facility] RBC Auto (Bld) [#/Vol]Ordere d By: Kal Fan on 08-18-2024 RBC (Bld) [#/Vol] 3.26 10*6/uL Low 4.2-5.4 [facility] White blood cell (WBC) count Ordered By: Kal Fan on 08-18-2024 WBC (Bld) [#/Vol] 8.2 10*3/uL 4.4-11.0 [facility] Absolute lymphocyte countOrd ered By: Shakeel Rehman on 08-17-2024 Lymphocytes Auto (Unsp spec) [#/Vol] 1.69 10*3/uL 0.83-4.51 [facility] Absolute neutrophil countOrd ered By: Shakeel Rehman on 08-17-2024 Neutrophils (Bld) [#/Vol] 5.6 10*3/uL 2.0-7.7 [facility] Anion gap in Serum or Plasma Ordered By: Shakeel Rehman on 08-17-2024 Anion gap [Moles/Vol] 14 mmol/L 5-15 [facility] Automated lymphocyte count a s percentage of total leukocytesOrdered By: Shakeel Rehman on 08-17-2024 Lymphocytes/100 WBC Auto (Unsp spec) 20.3 % 19-41 [facility] BUN/creatinine ratioOrdered By: Shakeel Rehman on 08-17-2024 Urea nitrogen/Creatinine [Mass ratio] 17.3 mg/mg 10-20 [facility] Basophil percentageOrdered B y: Shakeel Rehman on 08-17-2024 Basophils/100 WBC (Bld) 0.1 % 0-1 [facility] Carbon dioxide, total [Moles /volume] in Central venous bloodOrdered By: Shakeel Rehman on 08-17-2024 CO2 [Moles/Vol] 16.1 mmol/L Low 21.0-32.0 [facility] Chloride assayOrdered By: ebenezer Rehman on 08-17-2024 Chloride [Moles/Vol] 109 mmol/L High 98-108 [facility] Eosinophil percentageOrdered By: Shakeel Rehman on 08-17-2024 Eosinophils/100 WBC (Bld) 3.7 % 0-5 [facility] Erythrocyte distribution wid th ratioOrdered By: Shakeel Rehman on 08-17-2024 Erythrocyte distribution width (RBC) [Ratio] 17.1 % High 11.6-14.6 [facility] Erythrocyte distribution wid th standard deviationOrdered By: Shakeel Rehman on 08-17-2024 Erythrocyte distribution width (RBC) [Ratio] 48.9 fl High 35.1-43.9 [facility] Glomerular filtration rate ( GFR) estimation/1.73 sq m using serum, plasma, or whole bOrdered By: Shakeel Rehman on 08-17-2024 GFR/1.73 sq M.predicted among non-blacks MDRD (S/P/Bld) [Vol rate/Area] 27 mL/min/{1.73_m2} Low >60 [facility] Comment on above: mL/min/1.73m2 CKD-EP I Creatinine Equation (2020) Hematocrit Auto (Bld) [Volum e fraction]Ordered By: Shakeel Rehman on 08-17-2024 Hematocrit (Bld) [Volume fraction] 25.3 % Low 37-47 [facility] Hemoglobin measurementOrdere d By: Shakeel Rehman on 08-17-2024 Hemoglobin (Bld) [Mass/Vol] 7.5 g/dL Low 12.0-15.0 [facility] Immature granulocytes/100 WB C Auto (Bld)Ordered By: Shakeel Rehman on 08-17-2024 Immature granulocytes/100 WBC (Bld) 0.600 % 0.0-0.9 [facility] Comment on above: IG% - Immature Granu locytes (promyelocytes, myelocytes and metamyelocytes) > 1% indicates that a LEFT SHIFT is Present. MCV (mean corpuscular volume ) determinationOrdered By: Shakeel Rehman on 08-17-2024 MCV (RBC) [Entitic vol] 80.1 fL Low 81-99 [facility] Magnesium measurement (mass/ volume)Ordered By: Shakeel Rehman on 08-17-2024 Magnesium (Unsp spec) [Mass/Vol] 2.0 mg/dL 1.5-2.2 [facility] Mean corpuscular hemoglobin (MCH) determinationOrdered By: Shakeel Rehman on 08-17-2024 MCH (RBC) [Entitic mass] 23.7 pg Low 27.0-32.0 [facility] Mean corpuscular hemoglobin concentration (MCHC) determinationOrdered By: Shakeel Rehman on 08-17-2024 MCHC (RBC) [Mass/Vol] 29.6 g/dL Low 32-36 [facility] Mean platelet volume determi nationOrdered By: Shakeel Rehman on 08-17-2024 Platelet mean volume (Bld) [Entitic vol] 11.1 fL 6.2-12.0 [facility] Monocyte percentageOrdered B y: Shakeel Rehman on 08-17-2024 Monocytes/100 WBC (Bld) 8.3 % 0-10 [facility] Neutrophil percentageOrdered By: Shakeel Rehman on 08-17-2024 Neutrophils/100 WBC (Bld) 67.0 % 47-70 [facility] Nucleated red blood cell per centageOrdered By: Shakeel Rehman on 08-17-2024 Nucleated RBC/100 WBC (Bld) [Ratio] 0 % 0-5 [facility] Platelet countOrdered By: Patric Rehman on 08-17-2024 Platelets (Bld) [#/Vol] 217 10*3/uL 150-450 [facility] Potassium measurement (mass/ volume)Ordered By: Shakeel Rehman on 08-17-2024 Potassium (Unsp spec) [Mass/Vol] 4.7 mmol/L 3.3-5.1 [facility] Comment on above: Hemolysis present, R esults could be affected. RBC Auto (Bld) [#/Vol]Ordere d By: Shakeel Rehman on 08-17-2024 RBC (Bld) [#/Vol] 3.16 10*6/uL Low 4.2-5.4 [facility] Serum creatinine measurement (mass/volume)Ordered By: Shakeel Rehman on 08-17-2024 Creatinine [Mass/Vol] 1.78 mg/dL High 0.70-1.20 [facility] Serum glucose measurement (m ass/volume)Ordered By: Shakeel Rehman on 08-17-2024 Glucose [Mass/Vol] 119 mg/dL High 70-99 [facility] Serum or plasma calcium gu[place] urement (mass/volume)Ordered By: Shakeel Rehman on 08-17-2024 Calcium [Mass/Vol] 8.5 mg/dL 7.6-11.0 [facility] Serum or plasma urea nitroge n measurement (mass/volume)Ordered By: Shakeel Rehman on 08-17-2024 Urea nitrogen [Mass/Vol] 31 mg/dL High 4-19 [facility] Sodium levelOrdered By: Lindsey Rehman on 08-17-2024 Sodium [Moles/Vol] 139 mmol/L 133-145 [facility] Troponin T.cardiac [Mass/vol ume] in Serum or Plasma by High sensitivity methodOrdered By: Shakeel Rehman on 08-17-2024 Troponin T.cardiac High sensitivity method [Mass/Vol] 16 ng/L High <14 [facility] Troponin T.cardiac High sensitivity method [Mass/Vol] 17 ng/L High <14 [facility] White blood cell (WBC) count Ordered By: Shakeel Rehman on 08-17-2024 WBC (Bld) [#/Vol] 8.3 10*3/uL 4.4-11.0 [facility] Comprehensive metabolic 2000 panelon 11-26-2023 Albumin BCP dye [Mass/Vol] 3.4 g/dL Normal 3.4-5.0 [facility] Comment on above: Performed By: #### 2 4323-8 #### MARGO Brown ([id number]) [facility] ([facility]) [id number] [place] [address] ALP [Catalytic activity/Vol] 68 U/L Normal 33-136 [facility] Comment on above: Performed By: #### 2 4323-8 #### MARGO Brown ([id number]) [facility] ([facility]) [id number] [place] [address] 84402 ALT With P-5'-P [Catalytic activity/Vol] 24 U/L Normal 7-45 [facility] Comment on above: Result Comment: Carlota ents treated with Sulfasalazine may generate falsely decreased results for ALT. Performed By: #### 2 4323-8 #### MARGO Brown ([id number]) [facility] ([facility]) [address] [place] [address] Anion gap [Moles/Vol] 13 mmol/L Normal 10-20 [facility] Comment on above: Performed By: #### 2 4323-8 #### MARGO Brown ([id number]) [facility] ([facility]) [address] [place] [address] AST With P-5'-P [Catalytic activity/Vol] 17 U/L Normal 9-39 [facility] Comment on above: Performed By: #### 2 4323-8 #### MARGO RICE L ([id number]) [facility] ([facility]) [address] [place] [address] Bilirubin [Mass/Vol] 0.6 mg/dL Normal 0.0-1.2 [facility] Comment on above: Performed By: #### 2 4323-8 #### MARGO RICE L ([id number]) [facility] ([facility]) [address] [place] [address] Calcium [Mass/Vol] 9.0 mg/dL Normal 8.6-10.6 [facility] Comment on above: Performed By: #### 2 4323-8 #### MARGO RICE L ([id number]) [facility] ([facility]) [address] [place] [address] Chloride [Moles/Vol] 109 mmol/L High 98-107 [facility] Comment on above: Performed By: #### 2 4323-8 #### MARGO MULLENMOTZER L ([id number]) [facility] ([facility]) [address] [place] [address] CO2 [Moles/Vol] 26 mmol/L Normal 21-32 [facility] Comment on above: Performed By: #### 2 4323-8 #### MARGO MULLENMOTZER L ([id number]) [facility] ([facility]) [address] [place] [address] Creatinine [Mass/Vol] 1.64 mg/dL High 0.50-1.05 [facility] Comment on above: Performed By: #### 2 4323-8 #### MARGO MULLENMOTZER L ([id number]) [facility] ([facility]) [address] [place] [address] Glomerular filtration rate/1.73 sq M.predicted 30 mL/min/1.73m*2 Low >60 [facility] Comment on above: Result Comment: Calc ulations of estimated GFR are performed using the 2020 CKD-EPI Study Refit equation without the race variable for the IDMS-Traceable creatinine methods. https://jasn.asnjournals.org/content//ASN.2020 554713 Performed By: #### 2 4323-8 #### MARGO Brown ([id number]) [facility] ([facility]) [id number] [place] [address] Glucose [Mass/Vol] 166 mg/dL High 74-99 [facility] Comment on above: Performed By: #### 2 4323-8 #### MARGO Brown ([id number]) [facility] ([facility]) [address] [place] [address] Potassium [Moles/Vol] 4.6 mmol/L Normal 3.5-5.3 [facility] Comment on above: Performed By: #### 2 4323-8 #### MARGO Brown ([id number]) [facility] ([facility]) [address] [place] [address] Protein [Mass/Vol] 5.9 g/dL Low 6.4-8.2 [facility] Comment on above: Performed By: #### 2 4323-8 #### MARGO Brown ([id number]) [facility] ([facility]) [id number] [place] [address] Sodium [Moles/Vol] 143 mmol/L Normal 136-145 [facility] Comment on above: Performed By: #### 2 4323-8 #### MARGO Brown ([id number]) [facility] ([facility]) [id number] [place] [address] Urea nitrogen [Mass/Vol] 22 mg/dL Normal 6-23 [facility] Comment on above: Performed By: #### 2 4323-8 #### MARGO Brown ([id number]) [facility] ([facility]) [address] [place] [address] HbA1c (Bld) [Mass fraction]o n 11-26-2023 Average glucose Estimated from glycated hemoglobin (Bld) [Mass/Vol] 146 mg/dL Normal Not Established [facility] Comment on above: Order Comment: Diagn osis of Iwhmsesq-AlppxyWff-Foktdzoi: < or = 5.6%Increased risk for developing diabetes: 5.7-6.4%Diagnostic of diabetes: > or = 6.5% Performed By: #### 2 4323-8 #### MARGO Brown ([id number]) [facility] ([facility]) [address] [place] [address] Hemoglobin A1c/Hemoglobin.to josue 11-26-2023 HbA1c (Bld) [Mass fraction] 6.7 % High See comment [facility] Comment on above: Order Comment: Diagn osis of Bngkuyub-XdmxywOcz-Ddnuwszw: < or = 5.6%Increased risk for developing diabetes: 5.7-6.4%Diagnostic of diabetes: > or = 6.5% Performed By: #### 2 4323-8 #### MARGO Brown ([id number]) [facility] ([facility]) [id number] [place], [place] [id number] Echo Completeon 11-14-2023 Echo Complete [facility] [address] [place] [address] Echo Complete 11/14/23 1403 MR#: [id number] Acct: [id number] Name: INGRID DONALD Rep #: [id number] : 1935 87 From: Art Melara MD Attending Dr: Dr. Art Melara MD [facility]: Art Melara MD Date: 11/14/23 Location: [facility] Sex: F C Admitted: Reason For [...] Art Melara MD Performed By: Mary [address], [facility] [email or web address]] 11/15/23910 Date Art Melara MD CC: Dr. Art Melara MD; Dr. Eitan Price MD Date Dictated: 11/14/231402 Date Transcribed: 11/15/23910 Front End Web Developer: Signed [facility] 11-13-2023 [facility] Office Visit ([id number]) ---- INGRID DONALD ([id number]) 1935 F Date Time Provider Department 11/13/23 [...] excessive bleeding, clots, bleeding disorders. Physical Examination: Ladariusdita is alert and oriented and in no [...] directly to him. Injection site: asaf knees BRENDON Qureshi (more content not included)... Normal [facility] Large Joint Arthro/Inj: bila teral knee jointson [...] the patient voiced understanding of these instructions. [facility] No Panel Informationon 11-12 Standing 45 [...] dislocation. No overt signs of bony tumor. [facility] XR Knee - left 3 [facility] Study observation (narrative) [facility] XR Knee - right 3 [facility] Study observation (narrative) [facility] Comprehensive Metabolic Prof ilon 11-09-2023 Albumin [Mass/Vol] 3.3 g/dL Normal 3.2-5.0 [facility] Comment on above: Performed By: #### L 500.4050, L500.4100 #### [facility] [address] [place], [address] Albumin/Globulin [Mass ratio] 0.9 {ratio} Normal 0.9-2.4 [facility] Comment on above: Performed By: #### L 500.4050, L500.4100 #### [facility] [address] [place], [address] ALK P 73 U/L Normal 45-117 [facility] Comment on above: Performed By: #### L 500.4050, L500.4100 #### [facility] [address] [place], [address] ALT [Catalytic activity/Vol] 18 U/L Normal 13-56 [facility] Comment on above: Performed By: #### L 500.4050, L500.4100 #### [facility] [address] [place], [address] AST [Catalytic activity/Vol] 14 U/L Low 15-37 [facility] Comment on above: Performed By: #### L 500.4050, L500.4100 #### [facility] [address] [place], [address] Bilirubin [Mass/Vol] 0.50 mg/dL Normal 0.20-1.00 [facility] Comment on above: Result Comment: For patients on eltrombopag therapy, use of Dimension [place] TBIL is not recommended. Performed By: #### L 500.4050, L500.4100 #### [facility] [address] [place], [address] BUN/CRE 17.7 RATIO Normal 10-20 [facility] Comment on above: Performed By: #### L 500.4050, L500.4100 #### [facility] [address] [place], [address] CA,Total 9.3 mg/dL Normal 8.5-10.1 [facility] Comment on above: Performed By: #### L 500.4050, L500.4100 #### [facility] [address] [place], [address] Chloride [Moles/Vol] 109 mmol/L High 98-107 [facility] Comment on above: Performed By: #### L 500.4050, L500.4100 #### [facility] [address] [place], [address] CO2 [Moles/Vol] 28.0 mmol/L Normal 21.0-32.0 [facility] Comment on above: Performed By: #### L 500.4050, L500.4100 #### [facility] [address] [place], [address] Creatinine [Mass/Vol] 1.75 mg/dL High 0.55-1.02 [facility] Comment on above: Result Comment: The validity of the calculated GFR GFRAA in patients over 70 years has not been determined. Clinical correlation is essential. Performed By: #### L 500.4050, L500.4100 #### [facility] [address] [place], [address] EST GFR - AA 35 mL/min Low >60 [facility] Comment on above: Result Comment: Afri can [place] GFR Calc Performed By: #### L 500.4050, L500.4100 #### [facility] [address] [place], [address] GAP 3 Low 5-15 [facility] Comment on above: Performed By: #### L 500.4050, L500.4100 #### [facility] [address] [place], [address] GFR/1.73 sq M.predicted among non-blacks MDRD (S/P/Bld) [Vol rate/Area] 29 mL/min/{1.73_m2} Low >60 [facility] Comment on above: Result Comment: Non- GFR Calc Performed By: #### L 500.4050, L500.4100 #### [facility] [address] [place], [address] Globulin (S) [Mass/Vol] 3.5 g/dL Normal 2.2-4.2 [facility] Comment on above: Performed By: #### L 500.4050, L500.4100 #### [facility] [address] [place], [address] Glucose [Mass/Vol] 117 mg/dL High 74-106 [facility] Comment on above: Result Comment: Fast ing Glucose result from 100 to 125 mg/dL suggests IMPAIRED HOMEOSTASIS per A.D.A. criteria. Performed By: #### L 500.4050, L500.4100 #### [facility] [address] [place], [address] Potassium [Moles/Vol] 4.9 mmol/L Normal 3.5-5.1 [facility] Comment on above: Performed By: #### L 500.4050, L500.4100 #### [facility] [address] [place], [address] Sodium [Moles/Vol] 140 mmol/L Normal 136-145 [facility] Comment on above: Performed By: #### L 500.4050, L500.4100 #### [facility] [address] [place], [address] T PROT 6.8 g/dL Normal 6.4-8.2 [facility] Comment on above: Performed By: #### L 500.4050, L500.4100 #### [facility] [address] [place], [address] Urea nitrogen [Mass/Vol] 31 mg/dL High 7-18 [facility] Comment on above: Performed By: #### L 500.4050, L500.4100 #### [facility] [address] [place], [address] Lipid Profileon 11-09-2023 Cholesterol [Mass/Vol] 102 mg/dL Normal 200 [facility] Comment on above: Result Comment: <200 mg/dL Desirable 200-240 mg/dL Borderline >240 mg/dL High Risk Performed By: #### L 500.4050, L500.4100 #### [facility] [address] [place], [address] Cholesterol in HDL [Mass/Vol] 53 mg/dL Normal [facility] Comment on above: Result Comment: The drugs N-Acetylcysteine and Metamizole may falsely depress this assay. Reference Range HDL <40 mg/dL Low HDL Cholesterol HDL >or= 60 mg/dL High HDL Cholesterol Performed By: #### L 500.4050, L500.4100 #### [facility] [address] [place], [address] Cholesterol in LDL [Mass/Vol] 33 mg/dL Normal 0-130 [facility] Comment on above: Performed By: #### L 500.4050, L500.4100 #### [facility] [address] [place], [address] Cholesterol in VLDL [Mass/Vol] 16 mg/dL Normal 5-40 [facility] Comment on above: Performed By: #### L 500.4050, L500.4100 #### [facility] [address] [place], [address] Triglyceride [Mass/Vol] 78 mg/dL Normal [facility] Comment on above: Result Comment: The drugs N-Acetylcysteine and Metamizole may falsely depress this assay. Serum Triglycerides Reference Interval Normal <150 mg/dL Borderline high 150 - 199 mg/dL High 200 - 499 mg/dL Very High > or = 500 mg/dL Performed By: #### L 500.4050, L500.4100 #### [facility] [address] [place], [address] Cardiology Visit Reporton Cardiology Visit Report [facility] [address] [place] [address] OFFICE VISIT Date of Service: 11/06/23 MR#: [id number] Acct: [id number] Name: INGRID DONALD Rep #: [id number] : 1935 Provider: Dr. 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 Corina (more content not included)... Normal [facility] XR KNEES ANTEROPOSTERIOR STA NDING BILATERALon 10-03-2023 XR KNEES ANTEROPOSTERIOR STANDING BILATERAL Interpreted By: Tequila Acevedo, STUDY: Bilateral knees, single standing AP view radiographs. INDICATION: Signs/Symptoms:pain . COMPARISON: None. ACCESSION NUMBER(S): [id number] ORDERING CLINICIAN: EITAN PRICE FINDINGS: No acute fracture or malalignment. 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 Meow-sv-ndaoqvmb medial and mild lateral compartment osteoarthrosis of the right knee. Ossified loose body in the lateral suprapatellar recess of the right knee. IMPRESSION: 1. Bilateral knee degenerative changes as above, left worse than right. MACRO: None Signed by: Tequila Acevedo 10/09/2023 1:54 PM Dictation workstation: [id number] [facility] CBC W Auto Differential pane l (Bld)on 09-28-2023 Basophils (Bld) [#/Vol] 0.03 x10*3/uL Normal 0.00-0.10 [facility] Comment on above: Performed By: #### 2 4323-8 #### MARGO RICE L ([id number]) [facility] ([facility]) [id number] [place] [address] 20766 Basophils/100 WBC (Bld) 0.4 % Normal 0.0-2.0 [facility] Comment on above: Performed By: #### 2 4323-8 #### MARGO SCHMOTZER L ([id number]) [facility] ([facility]) [address] [place] [address] Eosinophils (Bld) [#/Vol] 0.19 x10*3/uL Normal 0.00-0.40 [facility] Comment on above: Performed By: #### 2 4323-8 #### MARGO LONGOER L ([id number]) [facility] ([facility]) [address] [place] [address] Eosinophils/100 WBC (Bld) 2.5 % Normal 0.0-6.0 [facility] Comment on above: Performed By: #### 2 4323-8 #### MARGO Brown ([id number]) [facility] ([facility]) [id number] [place] [address] 98201 Erythrocyte distribution width (RBC) [Ratio] 14.1 % Normal 11.5-14.5 [facility] Comment on above: Performed By: #### 2 432-8 #### MARGO Brown ([id number]) [facility] ([facility]) [address] [place] [address]85 Hematocrit (Bld) [Volume fraction] 36.8 % Normal 36.0-46.0 [facility] Comment on above: Performed By: #### 2 432-8 #### MARGO Brown ([id number]) [facility] ([facility]) [address] [place] [address] 92250 Hemoglobin (Bld) [Mass/Vol] 11.7 g/dL Low 12.0-16.0 [facility] Comment on above: Performed By: #### 2 4323-8 #### MARGO Brown ([id number]) [facility] ([facility]) [address] [place] [address] 89595 Immature granulocytes (Bld) [#/Vol] 0.04 x10*3/uL Normal 0.00-0.50 [facility] Comment on above: Performed By: #### 2 4323-8 #### MARGO Brown ([id number]) [facility] ([facility]) [address] [place] [address] 74001 Immature granulocytes/100 WBC (Bld) 0.5 % Normal 0.0-0.9 [facility] Comment on above: Result Comment: Jennifer ture Granulocyte Count (IG) includes promyelocytes, myelocytes and metamyelocytes but does not include bands. Percent differential counts (%) should be interpreted in the context of the absolute cell counts (cells/UL). Performed By: #### 2 4323-8 #### MARGO Brown ([id number]) [facility] ([facility]) [address] [place] [address] 15774 Lymphocytes (Bld) [#/Vol] 2.73 x10*3/uL Normal 0.80-3.00 [facility] Comment on above: Performed By: #### 2 4323-8 #### MARGO Brown ([id number]) [facility] ([facility]) [address] [place] [address] 11371 Lymphocytes/100 WBC (Bld) 35.8 % Normal 13.0-44.0 [facility] Comment on above: Performed By: #### 2 432-8 #### MARGO Brown ([id number]) [facility] ([facility]) [address] [place] [address] 33099 MCH (RBC) [Entitic mass] 28.7 pg Normal 26.0-34.0 [facility] Comment on above: Performed By: #### 2 432-8 #### MARGO Brown ([id number]) [facility] ([facility]) [address] [place] [address] 71282 MCHC (RBC) [Mass/Vol] 31.8 g/dL Low 32.0-36.0 [facility] Comment on above: Performed By: #### 2 4323-8 #### MARGO Brown ([id number]) [facility] ([facility]) [address] [place] [address] 81271 MCV (RBC) [Entitic vol] 90 fL Normal 80-100 [facility] Comment on above: Performed By: #### 2 4323-8 #### MARGO Brown ([id number]) [facility] ([facility]) [address] [place] [address] 39692 Monocytes (Bld) [#/Vol] 0.82 x10*3/uL High 0.05-0.80 [facility] Comment on above: Performed By: #### 2 4323-8 #### MARGO Brown ([id number]) [facility] ([facility]) [address] [place] [address] Monocytes/100 WBC (Bld) 10.8 % Normal 2.0-10.0 [facility] Comment on above: Performed By: #### 2 4323-8 #### MARGO Brown ([id number]) [facility] ([facility]) [address] [place] [address] 94343 Neutrophils (Bld) [#/Vol] 3.81 x10*3/uL Normal 1.60-5.50 [facility] Comment on above: Result Comment: Perc ent differential counts (%) should be interpreted in the context of the absolute cell counts (cells/uL). Performed By: #### 2 4323-8 #### MARGO Brown ([id number]) [facility] ([facility]) [address] [place] [address] 30009 Neutrophils/100 WBC (Bld) 50.0 % Normal 40.0-80.0 [facility] Comment on above: Performed By: #### 2 4323-8 #### MARGO Brown ([id number]) [facility] ([facility]) [address] [place] [address] 32204 Nucleated RBC/100 WBC (Bld) [Ratio] 0.0 /100 WBCs Normal 0.0-0.0 [facility] Comment on above: Performed By: #### 2 4323-8 #### MARGO Brown ([id number]) [facility] ([facility]) [address] [place] [address] 22510 Platelets (Bld) [#/Vol] 146 x10*3/uL Low 150-450 [facility] Comment on above: Performed By: #### 2 4323-8 #### MARGO Brown ([id number]) [facility] ([facility]) [address] [place] [address] 47515 RBC (Bld) [#/Vol] 4.07 x10*6/uL Normal 4.00-5.20 [facility] Comment on above: Performed By: #### 2 4323-8 #### MARGO Brown ([id number]) [facility] ([facility]) [address] [place] [address] WBC (Bld) [#/Vol] 7.6 x10*3/uL Normal 4.4-11.3 [facility] Comment on above: Performed By: #### 2 4323-8 #### MARGO Brown ([id number]) [facility] ([facility]) [address] [place] [address] 74541 Comprehensive metabolic 2000 panelon 09-28-2023 Albumin BCP dye [Mass/Vol] 3.8 g/dL Normal 3.4-5.0 [facility] Comment on above: Performed By: #### 2 4323-8 #### MARGO Brown ([id number]) [facility] ([facility]) [address] [place] [address] 31832 ALP [Catalytic activity/Vol] 67 U/L Normal 33-136 [facility] Comment on above: Performed By: #### 2 4323-8 #### MARGO Brown ([id number]) [facility] ([facility]) [address] [place] [address] 11921 ALT With P-5'-P [Catalytic activity/Vol] 15 U/L Normal 7-45 [facility] Comment on above: Result Comment: Carlota ents treated with Sulfasalazine may generate falsely decreased results for ALT. Performed By: #### 2 4323-8 #### MARGO Brown ([id number]) [facility] ([facility]) [address] [place] [address] 56750 Anion gap [Moles/Vol] 11 mmol/L Normal 10-20 [facility] Comment on above: Performed By: #### 2 4323-8 #### MARGO Brown ([id number]) [facility] ([facility]) [address] [place] [address] 33618 AST With P-5'-P [Catalytic activity/Vol] 15 U/L Normal 9-39 [facility] Comment on above: Performed By: #### 2 4323-8 #### MARGO RICE L ([id number]) [facility] ([facility]) [address] [place] [address] Bilirubin [Mass/Vol] 0.7 mg/dL Normal 0.0-1.2 [facility] Comment on above: Performed By: #### 2 4323-8 #### MARGO RICE L ([id number]) [facility] ([facility]) [address] [place] [address] Calcium [Mass/Vol] 9.4 mg/dL Normal 8.6-10.6 [facility] Comment on above: Performed By: #### 2 4323-8 #### MARGO RICE L ([id number]) [facility] ([facility]) [address] [place] [address] Chloride [Moles/Vol] 106 mmol/L Normal 98-107 [facility] Comment on above: Performed By: #### 2 4323-8 #### MARGO RICE L ([id number]) [facility] ([facility]) [address] [place] [address] CO2 [Moles/Vol] 28 mmol/L Normal 21-32 [facility] Comment on above: Performed By: #### 2 4323-8 #### MARGO MULLENMOTZER L ([id number]) [facility] ([facility]) [address] [place] [address] Creatinine [Mass/Vol] 1.52 mg/dL High 0.50-1.05 [facility] Comment on above: Performed By: #### 2 4323-8 #### MARGO RIVERATZER L ([id number]) [facility] ([facility]) [address] [place] [address] Glomerular filtration rate/1.73 sq M.predicted 33 mL/min/1.73m*2 Low >60 [facility] Comment on above: Result Comment: Calc ulations of estimated GFR are performed using the 2020 CKD-EPI Study Refit equation without the race variable for the IDMS-Traceable creatinine methods. https://jasn.asnjournals.org/content/early//ASN.2020 067513 Performed By: #### 2 4323-8 #### MARGO Brown ([id number]) [facility] ([facility]) [address] [place] [address] 07892 Glucose [Mass/Vol] 145 mg/dL High 74-99 [facility] Comment on above: Performed By: #### 2 4323-8 #### MARGO Brown ([id number]) [facility] ([facility]) [address] [place] [address] 01923 Potassium [Moles/Vol] 4.4 mmol/L Normal 3.5-5.3 [facility] Comment on above: Performed By: #### 2 4323-8 #### MARGO Brown ([id number]) [facility] ([facility]) [address] [place] [address] 25777 Protein [Mass/Vol] 6.6 g/dL Normal 6.4-8.2 [facility] Comment on above: Performed By: #### 2 4323-8 #### MARGO Brown ([id number]) [facility]) [address] [place] [address] 41094 Sodium [Moles/Vol] 141 mmol/L Normal 136-145 [facility] Comment on above: Performed By: #### 2 4323-8 #### MARGO Brown ([id number]) [facility]) [address] [place] [address] 97287 Urea nitrogen [Mass/Vol] 24 mg/dL High 6-23 [facility] Comment on above: Performed By: #### 2 4323-8 #### MARGO RICE L ([id number]) [facility]) [address] [place] [address] 20154 HbA1c (Bld) [Mass fraction]o n 09-28-2023 Average glucose Estimated from glycated hemoglobin (Bld) [Mass/Vol] 131 mg/dL Normal Not Established [facility] Comment on above: Order Comment: Diagn osis of Ubrfwdgi-QxeoewAnz-Ucxllomc: < or = 5.6%Increased risk for developing diabetes: 5.7-6.4%Diagnostic of diabetes: > or = 6.5% Performed By: #### 2 4323-8 #### MARGO Brown ([id number]) [facility]) [address] [place] [address] 83497 Hemoglobin A1c/Hemoglobin.to josue 09-28-2023 HbA1c (Bld) [Mass fraction] 6.2 % High see below [facility] Comment on above: Order Comment: Diagn osis of Vpzsxnfl-EsoiyxJrs-Feyvzlhz: < or = 5.6%Increased risk for developing diabetes: 5.7-6.4%Diagnostic of diabetes: > or = 6.5% Performed By: #### 2 4323-8 #### MARGO Brown ([id number]) [facility]) [address] [place] [address] 05853 Lipid 1996 panelon Cholesterol [Mass/Vol] 112 mg/dL Normal 0-199 [facility] Comment on above: Result Comment: Age [...] By: #### 2 4323-8 #### MARGO Brown ([id number]) [facility]) [address] [place] [address] 71293 Cholesterol in HDL [Mass/Vol] 41.5 mg/dL Normal [facility] Comment on above: Result Comment: Age Very Low Low Normal High 0-19 Y < 35 < 40 40-45 ---- 20-24 Y ---- < 40 >45 ---- >24 Y ---- < 40 40-60 >60 Performed By: #### 2 4323-8 #### MARGO Brown ([id number]) [facility] ([facility]) [address] [place] [address] 79514 Cholesterol in LDL [Mass/Vol] 51 mg/dL Normal <=99 [facility] Comment on above: Result Comment: Near Borderline AGE Desirable Optimal High High Very High 0-19 Y 0 - 109 --- 110-129 >/= 130 ---- 20-24 Y 0 - 119 --- 120-159 >/= 160 ---- >24 Y 0 - 99 100-129 130-159 160-189 >/=190 Performed By: #### 2 4323-8 #### MARGO Brown ([id number]) [facility] ([facility]) [address] [place] [address] 05862 Cholesterol in VLDL [Mass/Vol] 20 mg/dL Normal 0-40 [facility] Comment on above: Performed By: #### 2 4323-8 #### MARGO Brown ([id number]) [facility] ([facility]) [address] [place] [address] 50349 CHOLESTEROL/HDL RATIO 2.7 Normal [facility] Comment on above: Result Comment: Ref Values Desirable < 3.4 High Risk > 5.0 Performed By: #### 2 4323-8 #### MARGO Brown ([id number]) [facility] ([facility]) [address] [place] [address] 70523 NON HDL CHOLESTEROL 71 mg/dL Normal 0-149 [facility] Comment on above: Result Comment: Age Desirable Borderline High High Very High 0-19 Y 0 - 119 120 - 144 >/= 145 >/= 160 20-24 Y 0 - 149 150 - 189 >/= 190 ---- >24 Y 30 mg/dL above LDL Cholesterol goal Performed By: #### 2 4323-8 #### MARGO Brown ([id number]) [facility] ([facility]) [address] [place] [address] 44957 Triglyceride [Mass/Vol] 100 mg/dL Normal 0-149 [facility] Comment on above: Result Comment: Age [...] By: #### 2 4323-8 #### MARGO Brown ([id number]) [facility] ([facility]) [address] [place] [address] Cardiology Visit Reporton Cardiology Visit Report [facility]. [address] [place] [address] OFFICE VISIT Date of Service: 07/26/23 MR#: [id number] Acct: [id number] Name: INGRID DONALD Rep #: [id number] : 1935 Provider: Dr. 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 Normal [facility] ECG 12 lead (Clinic Performe d)on 06-26-2023 SEE SCANNED RESULTS [facility] Work Phone: ECG 12 lead (Clinic Performe d)Ordered By: Meenakshi Gregg on 06-26-2023 [facility] CBC W Auto Differential pane l (Bld)on 06-19-2023 Basophils (Bld) [#/Vol] 0.05 x10*3/uL Normal 0.00-0.10 [facility] Comment on above: Performed By: #### 5 7021-8 #### MARGO Brown ([id number]) [facility] ([facility]) [address] [place] [address] 48278 Basophils/100 WBC (Bld) 0.6 % Normal 0.0-2.0 [facility] Comment on above: Performed By: #### 5 7021-8 #### MARGO Brown ([id number]) [facility] ([facility]) [address] [place] [address] 02691 Eosinophils (Bld) [#/Vol] 0.29 x10*3/uL Normal 0.00-0.40 [facility] Comment on above: Performed By: #### 5 7021-8 #### MARGO Brown ([id number]) [facility] ([facility]) [address] [place] [address] 83283 Eosinophils/100 WBC (Bld) 3.5 % Normal 0.0-6.0 [facility] Comment on above: Performed By: #### 5 7021-8 #### MARGO Brown ([id number]) [facility]) [address] [place] [address] 48008 Erythrocyte distribution width (RBC) [Ratio] 14.6 % High 11.5-14.5 [facility] Comment on above: Performed By: #### 5 7021-8 #### MARGO Brown ([id number]) [facility] ([facility]) [address] [place] [address] 54764 Hematocrit (Bld) [Volume fraction] 37.1 % Normal 36.0-46.0 [facility] Comment on above: Performed By: #### 5 7021-8 #### MARGO Brown ([id number]) [facility] ([facility]) [address] [place] [address] 54126 Hemoglobin (Bld) [Mass/Vol] 11.6 g/dL Low 12.0-16.0 [facility] Comment on above: Performed By: #### 5 7021-8 #### MARGO Brown ([id number]) [facility]) [address] [place] [address] Immature granulocytes (Bld) [#/Vol] 0.03 x10*3/uL Normal 0.00-0.50 [facility] Comment on above: Performed By: #### 5 7021-8 #### MARGO Brown ([id number]) [facility]) [address] [place] [address] 81905 Immature granulocytes/100 WBC (Bld) 0.4 % Normal 0.0-0.9 [facility] Comment on above: Result Comment: Jennifer ture Granulocyte Count (IG) includes promyelocytes, myelocytes and metamyelocytes but does not include bands. Percent differential counts (%) should be interpreted in the context of the absolute cell counts (cells/UL). Performed By: #### 5 7021-8 #### MARGO Brown ([id number]) [facility] ([facility]) [address] [place] [address] 58712 Lymphocytes (Bld) [#/Vol] 3.05 x10*3/uL High 0.80-3.00 [facility] Comment on above: Performed By: #### 5 7021-8 #### MARGO Brown ([id number]) [facility] ([facility]) [id number] [place] [address] 30737 Lymphocytes/100 WBC (Bld) 36.7 % Normal 13.0-44.0 [facility] Comment on above: Performed By: #### 5 7021-8 #### MARGO Brown ([id number]) [facility] ([facility]) [address] [place] [address] 59937 MCH (RBC) [Entitic mass] 28.4 pg Normal 26.0-34.0 [facility] Comment on above: Performed By: #### 5 7021-8 #### MARGO Brown ([id number]) [facility] ([facility]) [address] [place] [address] 61553 MCHC (RBC) [Mass/Vol] 31.3 g/dL Low 32.0-36.0 [facility] Comment on above: Performed By: #### 5 7021-8 #### MARGO Brown ([id number]) [facility] ([facility]) [address] [place] [address] 45807 MCV (RBC) [Entitic vol] 91 fL Normal 80-100 [facility] Comment on above: Performed By: #### 5 7021-8 #### MARGO Brown ([id number]) [facility] ([facility]) [address] [place] [address] 77208 Monocytes (Bld) [#/Vol] 0.98 x10*3/uL High 0.05-0.80 [facility] Comment on above: Performed By: #### 5 7021-8 #### MARGO Brown ([id number]) [facility] ([facility]) [address] [place] [address] 12120 Monocytes/100 WBC (Bld) 11.8 % Normal 2.0-10.0 [facility] Comment on above: Performed By: #### 5 7021-8 #### MARGO Brown ([id number]) [facility] ([facility]) [address] [place] [address] 84554 Neutrophils (Bld) [#/Vol] 3.91 x10*3/uL Normal 1.60-5.50 [facility] Comment on above: Result Comment: Perc ent differential counts (%) should be interpreted in the context of the absolute cell counts (cells/uL). Performed By: #### 5 7021-8 #### MARGO Brown ([id number]) [facility] [facility] ([facility]) [address] [place] [address] Neutrophils/100 WBC (Bld) 47.0 % Normal 40.0-80.0 [facility] Comment on above: Performed By: #### 5 7021-8 #### MARGO Brown ([id number]) [facility] ([facility]) [address] [place] [address] 44246 Nucleated RBC/100 WBC (Bld) [Ratio] 0.0 /100 WBCs Normal 0.0-0.0 [facility] Comment on above: Performed By: #### 5 7021-8 #### MARGO Brown ([id number]) [facility] ([facility]) [address] [place] [address] 39592 Platelets (Bld) [#/Vol] 153 x10*3/uL Normal 150-450 [facility] Comment on above: Performed By: #### 5 7021-8 #### MARGO Brown ([id number]) [facility] ([facility]) [address] [place] [address] 93418 RBC (Bld) [#/Vol] 4.09 x10*6/uL Normal 4.00-5.20 [facility] Comment on above: Performed By: #### 5 7021-8 #### MARGO Brown ([id number]) [facility] ([facility]) [address] [place] [address] 42041 WBC (Bld) [#/Vol] 8.3 x10*3/uL Normal 4.4-11.3 [facility] Comment on above: Performed By: #### 5 7021-8 #### MARGO Brown ([id number]) [facility] ([facility]) [address] [place] [address] 23571 Comprehensive metabolic 2000 panelon 06-19-2023 Albumin BCP dye [Mass/Vol] 3.8 g/dL Normal 3.4-5.0 [facility] Comment on above: Performed By: #### 2 4323-8 #### MARGO Brown ([id number]) [facility] ([facility]) [address] [place] [address] ALP [Catalytic activity/Vol] 57 U/L Normal 33-136 [facility] Comment on above: Performed By: #### 2 4323-8 #### MARGO Brown ([id number]) [facility] ([facility]) [address] [place] [address] 66894 ALT With P-5'-P [Catalytic activity/Vol] 17 U/L Normal 7-45 [facility] Comment on above: Result Comment: Carlota ents treated with Sulfasalazine may generate falsely decreased results for ALT. Performed By: #### 2 4323-8 #### MARGO Brown ([id number]) [facility] ([facility]) [address] [place] [address] Anion gap [Moles/Vol] 11 mmol/L Normal 10-20 [facility] Comment on above: Performed By: #### 2 4323-8 #### MARGO Brown ([id number]) [facility] ([facility]) [address] [place] [address] AST With P-5'-P [Catalytic activity/Vol] 16 U/L Normal 9-39 [facility] Comment on above: Performed By: #### 2 4323-8 #### MARGO Brown ([id number]) [facility] ([facility]) [address] [place] [address] Bilirubin [Mass/Vol] 0.7 mg/dL Normal 0.0-1.2 [facility] Comment on above: Performed By: #### 2 4323-8 #### MARGO Brown ([id number]) [facility] ([facility]) [address] [place] [address] 72273 Calcium [Mass/Vol] 9.2 mg/dL Normal 8.6-10.6 [facility] Comment on above: Performed By: #### 2 4323-8 #### MARGO Brown ([id number]) [facility] ([facility]) [address] [place] [address] Chloride [Moles/Vol] 107 mmol/L Normal 98-107 [facility] Comment on above: Performed By: #### 2 4323-8 #### MARGO Brown ([id number]) [facility] ([facility]) [address] [place] [address] 90635 CO2 [Moles/Vol] 28 mmol/L Normal 21-32 [facility] Comment on above: Performed By: #### 2 4323-8 #### MARGO Brown ([id number]) [facility] ([facility]) [address] [place] [address] Creatinine [Mass/Vol] 1.56 mg/dL High 0.50-1.05 [facility] Comment on above: Performed By: #### 2 4323-8 #### MARGO Brown ([id number]) [facility] ([facility]) [address] [place] [address] 61202 Glomerular filtration rate/1.73 sq M.predicted 32 mL/min/1.73m*2 Low >60 [facility] Comment on above: Result Comment: Calc ulations of estimated GFR are performed using the 2020 CKD-EPI Study Refit equation without the race variable for the IDMS-Traceable creatinine methods. https://jasn.asnjournals.org/content//ASN.2020 409558 Performed By: #### 2 4323-8 #### MARGO Brown ([id number]) [facility] ([facility]) [address] [place] [address] 38418 Glucose [Mass/Vol] 119 mg/dL High 74-99 [facility] Comment on above: Performed By: #### 2 4323-8 #### MARGO Brown ([id number]) [facility] ([facility]) [address] [place] [address] 62909 Potassium [Moles/Vol] 4.8 mmol/L Normal 3.5-5.3 [facility] Comment on above: Performed By: #### 2 4323-8 #### MARGO Brown ([id number]) [facility] ([facility]) [address] [place] [address] 79612 Protein [Mass/Vol] 6.3 g/dL Low 6.4-8.2 [facility] Comment on above: Performed By: #### 2 4323-8 #### MARGO RICE L ([id number]) [facility] ([facility]) [address] [place] [address] Sodium [Moles/Vol] 141 mmol/L Normal 136-145 [facility] Comment on above: Performed By: #### 2 4323-8 #### MARGO Brown ([id number]) [facility] ([facility]) [address] [place] [address] Urea nitrogen [Mass/Vol] 27 mg/dL High 6-23 [facility] Comment on above: Performed By: #### 2 4323-8 #### MARGO Brown ([id number]) [facility] ([facility]) [address] [place] [address] Ferritinon 06-19-2023 Ferritin [Mass/Vol] 35 ng/mL Normal 8-150 [facility] Comment on above: Performed By: #### 2 276-4 #### MARGO Brown ([id number]) [facility] ([facility]) [address] [place] [address] HbA1c (Bld) [Mass fraction]o n 06-19-2023 Average glucose Estimated from glycated hemoglobin (Bld) [Mass/Vol] 134 mg/dL Normal Not Established [facility] Comment on above: Order Comment: Diagn osis of Diabetes-Adults Non-Diabetic: < or = 5.6% Increased risk for developing diabetes: 5.7-6.4% Diagnostic of diabetes: > or = 6.5% Monitoring of Diabetes Age (y)....................... Therapeutic Goal (%) Adults: >18.........................<7.0 Pediatrics: 13-18...................<7.5 Pediatrics: 7-12....................<8.0 Pediatrics: 0-6..................... 7.5-8.5 [employer]. Diabetes Care 33(S1), Feb 2009 Performed By: #### 4 548-4 #### MARGO Brown ([id number]) [facility] ([facility]) [address] [place], [place] [address] Hemoglobin A1c/Hemoglobin.to josue 06-19-2023 HbA1c (Bld) [Mass fraction] 6.3 % High see below [facility] Comment on above: Order Comment: Diagn osis of Diabetes-Adults Non-Diabetic: < or = 5.6% Increased risk for developing diabetes: 5.7-6.4% Diagnostic of diabetes: > or = 6.5% Monitoring of Diabetes Age (y)....................... Therapeutic Goal (%) Adults: >18.........................<7.0 Pediatrics: 13-18...................<7.5 Pediatrics: 7-12....................<8.0 Pediatrics: 0-6..................... 7.5-8.5 [employer]. Diabetes Care 33(S1), Feb 2009 Performed By: #### 4 548-4 #### MARGO Brown ([id number]) [facility] ([facility]) [address] [place] [address] 88296 Iron and Iron binding capaci ty panelon 06-19-2023 Iron [Mass/Vol] 49 ug/dL Normal 35-150 [facility] Comment on above: Performed By: #### 5 0190-8 #### MARGO Brown ([id number]) [facility] ([facility]) [address] [place] [address] 46173 Iron binding capacity [Mass/Vol] 375 ug/dL Normal 240-445 [facility] Comment on above: Performed By: #### 5 0190-8 #### MARGO Brown ([id number]) [facility] ([facility]) [address] [place] [address] 62265 Iron binding capacity.unsaturated [Mass/Vol] 326 ug/dL Normal 110-370 [facility] Comment on above: Performed By: #### 5 0190-8 #### MARGO Brown ([id number]) [facility] ([facility]) [address] [place] [address] 71203 Iron saturation [Mass fraction] 13 % Low 25-45 [facility] Comment on above: Performed By: #### 5 0190-8 #### MARGO RICE L ([id number]) [facility] ([facility]) [address] [place] [address] 21777 Lipid 1996 panelon 4 Cholesterol [Mass/Vol] 98 mg/dL Normal 0-199 [facility] Comment on above: Result Comment: Age Desirable [...] By: #### 2 4331-1 #### MARGO Brown ([id number]) [facility] ([facility]) [address] [place] [address] 86653 Cholesterol in HDL [Mass/Vol] 42.9 mg/dL Normal [facility] Comment on above: Result Comment: Age Very Low Low Normal High 0-19 Y < 35 < 40 40-45 ---- 20-24 Y ---- < 40 >45 ---- >24 Y ---- < 40 40-60 >60 Performed By: #### 2 4331-1 #### MARGO Brown ([id number]) [facility] ([facility]) [address] [place] [address] Cholesterol in LDL [Mass/Vol] 39 mg/dL Normal <=99 [facility] Comment on above: Result Comment: Near Borderline AGE Desirable Optimal High High Very High 0-19 Y 0 - 109 --- 110-129 >/= 130 ---- 20-24 Y 0 - 119 --- 120-159 >/= 160 ---- >24 Y 0 - 99 100-129 130-159 160-189 >/=190 Performed By: #### 2 4331-1 #### MARGO Brown ([id number]) [facility] ([facility]) [address] [place] [address] Cholesterol in VLDL [Mass/Vol] 17 mg/dL Normal 0-40 [facility] Comment on above: Performed By: #### 2 4331-1 #### MARGO Brown ([id number]) [facility] ([facility]) [address] [place] [address] 44758 CHOLESTEROL/HDL RATIO 2.3 Normal [facility] Comment on above: Result Comment: Ref Values Desirable < 3.4 High Risk > 5.0 Performed By: #### 2 4331-1 #### MARGO Brown ([id number]) [facility] ([facility]) [address] [place] [address] 98285 NON HDL CHOLESTEROL 55 mg/dL Normal 0-149 [facility] Comment on above: Result Comment: Age Desirable Borderline High High Very High 0-19 Y 0 - 119 120 - 144 >/= 145 >/= 160 20-24 Y 0 - 149 150 - 189 >/= 190 ---- >24 Y 30 mg/dL above LDL Cholesterol goal Performed By: #### 2 4331-1 #### MARGO Brown ([id number]) [facility] ([facility]) [address] [place] [address] 92669 Triglyceride [Mass/Vol] 83 mg/dL Normal 0-149 [facility] Comment on above: Result Comment: Age [...] By: #### 2 4331-1 #### MARGO Brown ([id number]) [facility] ([facility]) [address] [place] [address] CT HEAD WO IV CONTRASTon CT HEAD WO IV CONTRAST Interpreted By: Kait Pope and Bera Kaustav STUDY: CT HEAD WO IV CONTRAST; 12/20/2022 10:13 am INDICATION: Signs/Symptoms:SDH. COMPARISON: CT head without contrast on 11/29/2022 ACCESSION NUMBER(S): [id number] ORDERING CLINICIAN: ERICA THOMPSON TECHNIQUE: Noncontrast axial [...] and I agree with the findings of Marketing Graphics Specialist Dolly Hussein as stated. This study was interpreted at [facility], [place], [place]. MACRO: None Signed by: Kait Pope 12/20/2022 12:21 PM Dictation workstation: [id number] Normal [facility] Comprehensive metabolic 2000 panelon 12-11-2022 Albumin BCP dye [Mass/Vol] 3.8 g/dL Normal 3.4-5.0 [facility] Comment on above: Performed By: #### 2 4323-8 #### MARGO Brown ([id number]) [facility] ([facility]) [address] [place] [address] 09033 ALP [Catalytic activity/Vol] 55 U/L Normal 33-136 [facility] Comment on above: Performed By: #### 2 4323-8 #### MARGO Brown ([id number]) [facility] ([facility]) [address] [place] [address] 11229 ALT With P-5'-P [Catalytic activity/Vol] 15 U/L Normal 7-45 [facility] Comment on above: Result Comment: Carlota ents treated with Sulfasalazine may generate falsely decreased results for ALT. Performed By: #### 2 4323-8 #### MARGO Brown ([id number]) [facility] ([facility]) [address] [place] [address] 59602 Anion gap [Moles/Vol] 15 mmol/L Normal 10-20 [facility] Comment on above: Performed By: #### 2 4323-8 #### MARGO RICE L ([id number]) [facility] ([facility]) [address] [place] [address] 46510 AST With P-5'-P [Catalytic activity/Vol] 17 U/L Normal 9-39 [facility] Comment on above: Performed By: #### 2 4323-8 #### MARGO Brown ([id number]) [facility] ([facility]) [address] [place] [address] Bilirubin [Mass/Vol] 0.5 mg/dL Normal 0.0-1.2 [facility] Comment on above: Performed By: #### 2 4323-8 #### MARGO RCIE L ([id number]) [facility] ([facility]) [address] [place] [address] Calcium [Mass/Vol] 9.5 mg/dL Normal 8.6-10.6 [facility] Comment on above: Performed By: #### 2 4323-8 #### MARGO RICE L ([id number]) [facility] ([facility]) [address] [place] [address] 05421 Chloride [Moles/Vol] 107 mmol/L Normal 98-107 [facility] Comment on above: Performed By: #### 2 4323-8 #### MARGO RICE L ([id number]) [facility] ([facility]) [address] [place] [address] CO2 [Moles/Vol] 24 mmol/L Normal 21-32 [facility] Comment on above: Performed By: #### 2 4323-8 #### MARGO RICE L ([id number]) [facility] ([facility]) [address] [place] [address] Creatinine [Mass/Vol] 1.56 mg/dL High 0.50-1.05 [facility] Comment on above: Performed By: #### 2 4323-8 #### MARGO RIVERATZER L ([id number]) [facility] ([facility]) [address] [place] [address] GFR/1.73 sq M.predicted MDRD (S/P/Bld) [Vol rate/Area] 32 mL/min/1.73m*2 Low >60 [facility] Comment on above: Result Comment: Calc ulations of estimated GFR are performed using the 2020 CKD-EPI Study Refit equation without the race variable for the IDMS-Traceable creatinine methods. https://jasn.asnjournals.org/content//ASN.2020 478199 Performed By: #### 2 4323-8 #### MARGO Brown ([id number]) [facility] ([facility]) [address] [place] [address] 81590 Glucose [Mass/Vol] 144 mg/dL High 74-99 [facility] Comment on above: Performed By: #### 2 4323-8 #### MARGO Brown ([id number]) [facility] ([facility]) [address] [place] [address] 74476 Potassium [Moles/Vol] 5.0 mmol/L Normal 3.5-5.3 [facility] Comment on above: Performed By: #### 2 4323-8 #### MARGO Brown ([id number]) [facility] ([facility]) [address] [place] [address] 53439 Protein [Mass/Vol] 6.2 g/dL Low 6.4-8.2 [facility] Comment on above: Performed By: #### 2 4323-8 #### MARGO Brown ([id number]) [facility] ([facility]) [address] [place] [address] 86748 Sodium [Moles/Vol] 141 mmol/L Normal 136-145 [facility] Comment on above: Performed By: #### 2 4323-8 #### MARGO Brown ([id number]) [facility] ([facility]) [address] [place] [address] 24276 Urea nitrogen [Mass/Vol] 26 mg/dL High 6-23 [facility] Comment on above: Performed By: #### 2 4323-8 #### MARGO Brown ([id number]) [facility] ([facility]) [address] [place] [address] 75467 HbA1c (Bld) [Mass fraction]o n 12-11-2022 Average glucose Estimated from glycated hemoglobin (Bld) [Mass/Vol] 128 mg/dL Normal Not Established [facility] Comment on above: Order Comment: Diagn osis of Diabetes-Adults Non-Diabetic: < or = 5.6% Increased risk for developing diabetes: 5.7-6.4% Diagnostic of diabetes: > or = 6.5% Monitoring of Diabetes Age (y)....................... Therapeutic Goal (%) Adults: >18.........................<7.0 Pediatrics: 13-18...................<7.5 Pediatrics: 7-12....................<8.0 Pediatrics: 0-6..................... 7.5-8.5 [employer]. Diabetes Care 33(S1)Feb 2009 Performed By: #### 4 548-4 #### MARGO Brown ([id number]) [facility] ([facility]) [address] [place] [address] Hemoglobin A1c/Hemoglobin.to josue 12-11-2022 HbA1c (Bld) [Mass fraction] 6.1 % High see below [facility] Comment on above: Order Comment: Diagn osis of Diabetes-Adults Non-Diabetic: < or = 5.6% Increased risk for developing diabetes: 5.7-6.4% Diagnostic of diabetes: > or = 6.5% Monitoring of Diabetes Age (y)....................... Therapeutic Goal (%) Adults: >18.........................<7.0 Pediatrics: 13-18...................<7.5 Pediatrics: 7-12....................<8.0 Pediatrics: 0-6..................... 7.5-8.5 [employer]. Diabetes Care 33(S1), Feb 2009 Performed By: #### 4 548-4 #### MARGO Brown ([id number]) [facility] ([facility]) [address] [place] [address] Lipid 1996 panelon 3 Cholesterol [Mass/Vol] 96 mg/dL Normal 0-199 [facility] Comment on above: Result Comment: Age Desirable [...] By: #### 2 4331-1 #### MARGO Brown ([id number]) [facility] ([facility]) [address] [place] [address] Cholesterol in HDL [Mass/Vol] 37.0 mg/dL Normal [facility] Comment on above: Result Comment: Age Very Low Low Normal High 0-19 Y < 35 < 40 40-45 ---- 20-24 Y ---- < 40 >45 ---- >24 Y ---- < 40 40-60 >60 Performed By: #### 2 4331-1 #### MARGO Brown ([id number]) [facility] ([facility]) [address] [place] [address] Cholesterol in LDL [Mass/Vol] 35 mg/dL Normal <=99 [facility] Comment on above: Result Comment: Near Borderline AGE Desirable Optimal High High Very High 0-19 Y 0 - 109 --- 110-129 >/= 130 ---- 20-24 Y 0 - 119 --- 120-159 >/= 160 ---- >24 Y 0 - 99 100-129 130-159 160-189 >/=190 Performed By: #### 2 4331-1 #### MARGO Brown ([id number]) [facility] ([facility]) [address] [place] [address] Cholesterol in VLDL [Mass/Vol] 24 mg/dL Normal 0-40 [facility] Comment on above: Performed By: #### 2 4331-1 #### MARGO Brown ([id number]) [facility] ([facility]) [address] [place] [address] CHOLESTEROL/HDL RATIO 2.6 Normal [facility] Comment on above: Result Comment: Ref Values Desirable < 3.4 High Risk > 5.0 Performed By: #### 2 4331-1 #### MARGO Brown ([id number]) [facility] ([facility]) [address] [place] [address] 06253 NON HDL CHOLESTEROL 59 mg/dL Normal 0-149 [facility] Comment on above: Result Comment: Age Desirable Borderline High High Very High 0-19 Y 0 - 119 120 - 144 >/= 145 >/= 160 20-24 Y 0 - 149 150 - 189 >/= 190 ---- >24 Y 30 mg/dL above LDL Cholesterol goal Performed By: #### 2 4331-1 #### MARGO Brown ([id number]) [facility] ([facility]) [address] [place] [address] 95147 Triglyceride [Mass/Vol] 119 mg/dL Normal 0-149 [facility] Comment on above: Result Comment: Age [...] By: #### 2 4331-1 #### MARGO Brown ([id number]) [facility] ([facility]) [address] [place] [address] Basic metabolic 2000 panelon 12-02-2022 Anion gap [Moles/Vol] 11 mmol/L 10 - 20 mmol/L [facility] Calcium [Mass/Vol] 8.9 mg/dL 8.6 - 10. 3 mg/dL [facility] Chloride [Moles/Vol] 107 mmol/L 98 - 10 7 mmol/L [facility] CO2 [Moles/Vol] 26 mmol/L 21 - 32 mmol/L [facility] Creatinine [Mass/Vol] 1.70 mg/dL High 0.50 - 1.05 mg/dL [facility] GFR/1.73 sq M.predicted MDRD (S/P/Bld) [Vol rate/Area] 29 mL/min/{1.73_m2} Low - PINF [facility] Comment on above: Calculations of stevo mated GFR are performed using the 2020 CKD-EPI Study Refit equation without the race variable for the IDMS-Traceable creatinine methods. https://jasn.asnjournals.org/content/early/ASN.2020 230111 Glucose [Mass/Vol] 102 mg/dL High 74 - 99 mg/dL [facility] Interpretation and review of laboratory results Abnormal [facility] Potassium [Moles/Vol] 4.5 mmol/L 3.5 - 5.3 mmol/L [facility] Sodium [Moles/Vol] 139 mmol/L 136 - 145 mmol/L [facility] Urea nitrogen [Mass/Vol] 34 mg/dL High 6 - 23 mg/dL [facility] Anion gap [Moles/Vol] 11 mmol/L Normal 10-[address] [facility] Comment on above: Performed By: #### 2 4321-2 ####JANE BOLAÑOS ([id number])[facility] ([facility])[address] [place] [address] Calcium [Mass/Vol] 8.9 mg/dL Normal 8.6-10.3 [facility] Comment on above: Performed By: #### 2 4321-2 ####JANE BOLAÑOS ([id number])[facility] ([facility])[address] [place] [address] Chloride [Moles/Vol] 107 mmol/L Normal 98-107 [facility] Comment on above: Performed By: #### 2 4321-2 ####JANE SMALLI ([id number])[facility] ([facility])[address] [place] [address] CO2 [Moles/Vol] 26 mmol/L Normal 21-32 [facility] Comment on above: Performed By: #### 2 4321-2 ####JANE BOLAÑOS ([id number])[facility] ([facility])[address] [place] [address] Creatinine [Mass/Vol] 1.70 mg/dL High 0.50-1.[address] [facility] Comment on above: Performed By: #### 2 4321-2 ####JANE BOLAÑOS ([id number])[facility] ([facility])[address] [place] [address] GFR/1.73 sq M.predicted MDRD (S/P/Bld) [Vol rate/Area] 29 mL/min/1.73m*2 Low >60 [facility] Comment on above: Result Comment: Calc ulations of estimated GFR are performed using the 2020 CKD-EPI Study Refit equation without the race variable for the IDMS-Traceable creatinine methods. https://jasn.asnjournals.org/content//ASN.2020 362816 Performed By: #### 2 4321-2 ####JANE BOLAÑOS ([id number])[facility] ([facility])[address] [place] [address] Glucose [Mass/Vol] 102 mg/dL High 74-99 [facility] Comment on above: Performed By: #### 2 4321-2 ####JANE BOLAÑOS ([id number])[facility] ([facility])[address] [place] [address] Potassium [Moles/Vol] 4.5 mmol/L Normal 3.5-5.[address] [facility] Comment on above: Performed By: #### 2 4321-2 ####JANE BOLAÑOS ([id number])[facility] ([facility])[address] [place] [address] Sodium [Moles/Vol] 139 mmol/L Normal 136-145 [facility] Comment on above: Performed By: #### 2 4321-2 ####JANE BOLAÑOS ([id number])[facility] ([facility])[address] [place] [address] Urea nitrogen [Mass/Vol] 34 mg/dL High 6-23 [facility] Comment on above: Performed By: #### 2 4321-2 ####JANE BOLAÑOS ([id number])[facility] ([facility])[address] [place] [address] CBC panel Auto (Bld)on 12-02 Erythrocyte distribution width (RBC) [Ratio] 15.8 % High 11.5 - 14.5 % [facility] Hematocrit (Bld) [Volume fraction] 39.1 % 36.0 - 46.0 % [facility] Hemoglobin (Bld) [Mass/Vol] 12.3 g/dL 12.0 - 16.0 g/dL [facility] Interpretation and review of laboratory results Abnormal [facility] MCH (RBC) [Entitic mass] 28.3 pg 26.0 - 34.0 pg [facility] MCHC (RBC) [Mass/Vol] 31.5 g/dL Low 32.0 - 36.0 g/dL [facility] MCV (RBC) [Entitic vol] 90 fL 80 - 100 fL [facility] Nucleated RBC/100 WBC (Bld) [Ratio] 0.0 % [facility] Platelet mean volume (Bld) [Entitic vol] 12.2 fL High 7.5 - 11.5 fL [facility] Platelets (Bld) [#/Vol] 161 10*3/uL [facility] RBC (Bld) [#/Vol] 4.34 10*6/uL [facility] [place] [facility] WBC (Bld[facility] [#/Vol] 8.7 10*3/uL [facility] Erythrocyte distribution width (RBC) [Ratio] 15.8 % High 11.5-14.5 [facility] Comment on above: Performed By: #### 5 8410-2 ####JANE BOLAÑOS ([id number])[facility] ([facility])[address] [place] [address] Hematocrit (Bld) [Volume fraction] 39.1 % Normal 36.0-46.0 [facility] Comment on above: Performed By: #### 5 8410-2 ####JANE BOLAÑOS ([id number])[facility] ([facility])[address] [place] [address] Hemoglobin (Bld) [Mass/Vol] 12.3 g/dL Normal 12.0-16.0 [facility] Comment on above: Performed By: #### 5 8410-2 ####JANE BOLAÑOS ([id number])[facility] ([facility])[address] [place] [address] MCH (RBC) [Entitic mass] 28.3 pg Normal 26.0-34.0 [facility] Comment on above: Performed By: #### 5 8410-2 ####JANE BOLAÑOS ([id number])[facility] ([facility])[address] [place] [address] MCHC (RBC) [Mass/Vol] 31.5 g/dL Low 32.0-36.[address] [facility] Comment on above: Performed By: #### 5 8410-2 ####JANE BOLAÑOS ([id number])[facility] ([facility])[address] [place] [address] MCV (RBC) [Entitic vol] 90 fL Normal 80-100 [facility] Comment on above: Performed By: #### 5 8410-2 ####JANE BOLAÑOS ([id number])[facility] ([facility])[address] [place] [address] Nucleated RBC/100 WBC (Bld) [Ratio] 0.0 /100 WBCs Normal 0.0-0.0 [facility] Comment on above: Performed By: #### 5 8410-2 ####JANE BOLAÑOS ([id number])[facility] ([facility])[address] [place] [address] Platelet mean volume (Bld) [Entitic vol] 12.2 fL High 7.5-11.5 [facility] Comment on above: Performed By: #### 5 8410-2 ####JANE BOLAÑOS ([id number])[facility] ([facility])[address] [place] [address] Platelets (Bld) [#/Vol] 161 x10*3/uL Normal 150-450 [facility] Comment on above: Performed By: #### 5 8410-2 ####JANE BOLAÑOS ([id number])[facility] ([facility])[address] [place] [address] RBC (Bld) [#/Vol] 4.34 x10*6/uL Normal 4.00-5.20 [facility] Comment on above: Performed By: #### 5 8410-2 ####JANE BOLAÑOS ([id number])[facility] ([facility])[address] [place] [address] WBC (Bld) [#/Vol] 8.7 x10*3/uL Normal 4.4-11.3 [facility] Comment on above: Performed By: #### 5 8410-2 ####JANE BOLAÑOS ([id number])[facility] ([facility])[address] [place] [address] Basic metabolic 2000 panelon 11-30-2022 Anion gap [Moles/Vol] 13 mmol/L 10 - 20 mmol/L [facility] Calcium [Mass/Vol] 9.3 mg/dL 8.6 - 10. 3 mg/dL [facility] Chloride [Moles/Vol] 109 mmol/L High 98 - 10 7 mmol/L [facility] CO2 [Moles/Vol] 24 mmol/L 21 - 32 mmol/L [facility] Creatinine [Mass/Vol] 1.49 mg/dL High 0.50 - 1.05 mg/dL [facility] GFR/1.73 sq M.predicted MDRD (S/P/Bld) [Vol rate/Area] 34 mL/min/{1.73_m2} Low - PINF [facility] Comment on above: Calculations of stevo mated GFR are performed using the 2020 CKD-EPI Study Refit equation without the race variable for the IDMS-Traceable creatinine methods. https://darwinsn.asnjournals.org/content/early/ASN.2020 180262 Glucose [Mass/Vol] 123 mg/dL High 74 - 99 mg/dL [facility] Interpretation and review of laboratory results Abnormal [facility] Potassium [Moles/Vol] 4.6 mmol/L 3.5 - 5.3 mmol/L [facility] Sodium [Moles/Vol] 141 mmol/L 136 - 145 mmol/L [facility] Urea nitrogen [Mass/Vol] 27 mg/dL High 6 - 23 mg/dL [facility] Anion gap [Moles/Vol] 13 mmol/L Normal 10-[address] [facility] Comment on above: Performed By: #### 2 4321-2 ####JANE BOLAÑOS ([id number])[facility] ([facility])[address] [place] [address] Calcium [Mass/Vol] 9.3 mg/dL Normal 8.6-10.3 [facility] Comment on above: Performed By: #### 2 4321-2 ####JANE BOLAÑOS ([id number])[facility] ([facility])[address] [place] [address] Chloride [Moles/Vol] 109 mmol/L High 98-107 [facility] Comment on above: Performed By: #### 2 4321-2 ####JANE BOLAÑOS ([id number])[facility] ([facility])[address] [place] [address] CO2 [Moles/Vol] 24 mmol/L Normal 21-32 [facility] Comment on above: Performed By: #### 2 4321-2 ####JANE BOLAÑOS ([id number])[facility] ([facility])[address] [place] [address] Creatinine [Mass/Vol] 1.49 mg/dL High 0.50-1.[address] [facility] Comment on above: Performed By: #### 2 4320-2 ####JANE BOLAÑOS ([id number])[facility] ([facility])[address] [place] [address] GFR/1.73 sq M.predicted MDRD (S/P/Bld) [Vol rate/Area] 34 mL/min/1.73m*2 Low >60 [facility] Comment on above: Result Comment: Calc ulations of estimated GFR are performed using the 2020 CKD-EPI Study Refit equation without the race variable for the IDMS-Traceable creatinine methods. https://jasn.asnjournals.org/content/early//ASN.2020 953695 Performed By: #### 2 4320-2 ####JANE BOLAÑOS ([id number])[facility] ([facility])[address] [place] [address] Glucose [Mass/Vol] 123 mg/dL High 74-99 [facility] Comment on above: Performed By: #### 2 4320-2 ####JANE BOLAÑOS ([id number])[facility] ([facility])[address] [place] [address] Potassium [Moles/Vol] 4.6 mmol/L Normal 3.5-5.[address] [facility] Comment on above: Performed By: #### 2 4321-2 ####JANE BOLAÑOS ([id number])[facility] ([facility])[address] [place] [address] Sodium [Moles/Vol] 141 mmol/L Normal 136-145 [facility] Comment on above: Performed By: #### 2 4321-2 ####JANE BOLAÑOS ([id number])[facility] ([facility])[address] [place] [address] Urea nitrogen [Mass/Vol] 27 mg/dL High 6-23 [facility] Comment on above: Performed By: #### 2 4321-2 ####JANE BOLAÑOS ([id number])[facility] ([facility])[address] [place] [address] CBC panel Auto (Bld)on 11-30 Erythrocyte distribution width (RBC) [Ratio] 15.8 % High 11.5 - 14.5 % [facility] Hematocrit (Bld) [Volume fraction] 37.6 % 36.0 - 46.0 % [facility] Hemoglobin (Bld) [Mass/Vol] 11.7 g/dL Low 12.0 - 16.0 g/dL [facility] Interpretation and review of laboratory results Abnormal [facility] MCH (RBC) [Entitic mass] 28.5 pg 26.0 - 34.0 pg [facility] MCHC (RBC) [Mass/Vol] 31.1 g/dL Low 32.0 - 36.0 g/dL [facility] MCV (RBC) [Entitic vol] 92 fL 80 - 100 fL [facility] Nucleated RBC/100 WBC (Bld) [Ratio] 0.0 % [facility] Platelet mean volume (Bld) [Entitic vol] 11.3 fL 7.5 - 11.5 fL [facility] Platelets (Bld) [#/Vol] 151 10*3/uL [facility] RBC (Bld) [#/Vol] 4.10 10*6/uL [facility] WBC (Bld) [#/Vol] 7.9 10*3/uL [facility] Erythrocyte distribution width (RBC) [Ratio] 15.8 % High 11.5-14.5 [facility] Comment on above: Performed By: #### 5 8410-2 ####JANE BOLAÑOS ([id number])[facility] ([facility])[address] [place] [address] Hematocrit (Bld) [Volume fraction] 37.6 % Normal 36.0-46.0 [facility] Comment on above: Performed By: #### 5 8410-2 ####JANE BOLAÑOS ([id number])[facility] ([facility])[address] [place] [address] Hemoglobin (Bld) [Mass/Vol] 11.7 g/dL Low 12.0-16.0 [facility] Comment on above: Performed By: #### 5 8410-2 ####JANE BOLAÑOS ([id number])[facility] ([facility])[address] [place] [address] MCH (RBC) [Entitic mass] 28.5 pg Normal 26.0-34.0 [facility] Comment on above: Performed By: #### 5 8410-2 ####JANE BOLAÑOS ([id number])[facility] ([facility])[address] [place] [address] MCHC (RBC) [Mass/Vol] 31.1 g/dL Low 32.0-36.[address] [facility] Comment on above: Performed By: #### 5 8410-2 ####JANE BOLAÑOS ([id number])[facility] ([facility])[address] [place] [address] MCV (RBC) [Entitic vol] 92 fL Normal 80-100 [facility] Comment on above: Performed By: #### 5 8410-2 ####JANE BOLAÑOS ([id number])[facility] ([facility])[address] [place] [address] Nucleated RBC/100 WBC (Bld) [Ratio] 0.0 /100 WBCs Normal 0.0-0.0 [facility] Comment on above: Performed By: #### 5 8410-2 ####JANE BOLAÑOS ([id number])[facility] ([facility])[address] [place] [address] Platelet mean volume (Bld) [Entitic vol] 11.3 fL Normal 7.5-11.5 [facility] Comment on above: Performed By: #### 5 8410-2 ####JANE BOLAÑOS ([id number])[facility] ([facility])[address] [place] [address] Platelets (Bld) [#/Vol] 151 x10*3/uL Normal 150-450 [facility] Comment on above: Performed By: #### 5 8410-2 ####JANE BOLAÑOS ([id number])[facility] ([facility])[address] [place] [address] RBC (Bld) [#/Vol] 4.10 x10*6/uL Normal 4.00-5.20 [facility] Comment on above: Performed By: #### 5 8410-2 ####JANE BOLAÑOS ([id number])[facility] ([facility])[address] [place] [address] WBC (Bld) [#/Vol] 7.9 x10*3/uL Normal 4.4-11.3 [facility] Comment on above: Performed By: #### 5 8410-2 ####JANE BOLAÑOS ([id number])[facility] ([facility])[address] [place] [address] ECG 12 LeadOrdered By: Erica Flores on 11-30-2022 [facility] Glucose Test strip manual (B ld) [Mass/Vol]on 11-30-2022 Glucose [Mass/Vol] 126 mg/dL High 74 - 99 mg/dL [facility] Interpretation and review of laboratory results Abnormal [facility] Glucose [Mass/Vol] 126 mg/dL High 74-99 [facility] Comment on above: Performed By: #### 2 341-6 ####JANE BOLAÑOS ([id number])[facility] ([facility])[address] [place] [address] Glucose [Mass/Vol] 122 mg/dL High 74 - 99 mg/dL [facility] Interpretation and review of laboratory results Abnormal [facility] Glucose [Mass/Vol] 122 mg/dL High 74-99 [facility] Comment on above: Performed By: #### 2 341-6 #### JANE BOLAÑOS ([id number]) [facility] ([facility]) [address] [place] [address] Basic metabolic 2000 panelon 11-29-2022 Anion gap [Moles/Vol] 11 mmol/L 10 - 20 mmol/L [facility] Calcium [Mass/Vol] 9.2 mg/dL 8.6 - 10. 3 mg/dL [facility] Chloride [Moles/Vol] 106 mmol/L 98 - 10 7 mmol/L [facility] CO2 [Moles/Vol] 27 mmol/L 21 - 32 mmol/L [facility] Creatinine [Mass/Vol] 1.57 mg/dL High 0.50 - 1.05 mg/dL [facility] GFR/1.73 sq M.predicted MDRD (S/P/Bld) [Vol rate/Area] 32 mL/min/{1.73_m2} Low - PINF [facility] Comment on above: Calculations of stevo mated GFR are performed using the 2020 CKD-EPI Study Refit equation without the race variable for the IDMS-Traceable creatinine methods. https://jasn.asnjournals.org/content//ASN.2020 798264 Glucose [Mass/Vol] 119 mg/dL High 74 - 99 mg/dL [facility] Interpretation and review of laboratory results Abnormal [facility] Potassium [Moles/Vol] 4.3 mmol/L 3.5 - 5.3 mmol/L [facility] Sodium [Moles/Vol] 140 mmol/L 136 - 145 mmol/L [facility] Urea nitrogen [Mass/Vol] 30 mg/dL High 6 - 23 mg/dL [facility] Anion gap [Moles/Vol] 11 mmol/L Normal 10-[address] [facility] Comment on above: Performed By: #### 2 4321-2 #### JANE BOLAÑOS ([id number]) [facility] ([facility]) [address] [place] [address] Calcium [Mass/Vol] 9.2 mg/dL Normal 8.6-10.3 [facility] Comment on above: Performed By: #### 2 4321-2 #### JANE BOLAÑOS ([id number]) [facility] ([facility]) [address] [place] [address] Chloride [Moles/Vol] 106 mmol/L Normal 98-107 [facility] Comment on above: Performed By: #### 2 4321-2 #### JANE BOLAÑOS ([id number]) [facility]) [address] [place] [address] CO2 [Moles/Vol] 27 mmol/L Normal 21-32 [facility] Comment on above: Performed By: #### 2 4321-2 #### JANE BOLAÑOS ([id number]) [facility] ([facility]) [address] [place] [address] Creatinine [Mass/Vol] 1.57 mg/dL High 0.50-1.[address] [facility] Comment on above: Performed By: #### 2 4321-2 #### JANE BOLAÑOS ([id number]) [facility] ([facility]) [address] [place] [address] GFR/1.73 sq M.predicted MDRD (S/P/Bld) [Vol rate/Area] 32 mL/min/1.73m*2 Low >60 [facility] Comment on above: Result Comment: Calc ulations of estimated GFR are performed using the 2020 CKD-EPI Study Refit equation without the race variable for the IDMS-Traceable creatinine methods. https://jasn.asnjournals.org/content/early//ASN.2020 010118 Performed By: #### 2 4321-2 #### JANE BOLAÑOS ([id number]) [facility]) [address] [place] [address] Glucose [Mass/Vol] 119 mg/dL High 74-99 [facility] Comment on above: Performed By: #### 2 4321-2 #### JANE BOLAÑOS ([id number]) [facility] ([facility]) [address] [place] [address] Potassium [Moles/Vol] 4.3 mmol/L Normal 3.5-5.[address] [facility] Comment on above: Performed By: #### 2 4321-2 #### JANE BOLAÑOS ([id number]) [facility] ([facility]) [address] [place] [address] Sodium [Moles/Vol] 140 mmol/L Normal 136-145 [facility] Comment on above: Performed By: #### 2 4321-2 #### JANE BOLAÑOS ([id number]) [facility] ([facility]) [address] [place] [address] Urea nitrogen [Mass/Vol] 30 mg/dL High 6-23 [facility] Comment on above: Performed By: #### 2 4321-2 #### JANE BOLAÑOS ([id number]) [facility] ([facility]) [address] [place] [address] Blood type and Indirect anti body screen panel (Bld)on 11-29-2022 ABO group Nom (Bld) O [facility] Blood group antibody screen Ql Negative [facility] D Ag Ql (Bld) Positive [facility] ABO group Nom (Bld) O Normal [facility] Comment on above: Performed By: #### 3 4532-2 #### JANE BOLAÑOS ([id number]) [facility] ([facility]) [address] [place] [address] Blood group antibody screen Ql Negative [facility] Comment on above: Performed By: #### 3 4532-2 #### JANE BOLAÑOS ([id number]) [facility] ([facility]) [address] [place] [address] [place] D Ag Ql (Bld) Positive Normal [facility] Comment on above: Performed By: #### 3 4532-2 #### JANE BOLAÑOS ([id number]) [facility] ([facility]) [address] [facility] [place] [address] CBC W Auto Differential pane l (Bld)on 11-29-2022 Basophils (Bld) [#/Vol] 0.04 10*3/uL [facility] Basophils/100 WBC (Bld) 0.5 % 0.0 - 2.0 % [facility] Eosinophils (Bld) [#/Vol] 0.21 10*3/uL [facility] Eosinophils/100 WBC (Bld) 2.6 % 0.0 - 6.0 % [facility] Erythrocyte distribution width (RBC) [Ratio] 15.4 % High 11.5 - 14.5 % [facility] Hematocrit (Bld) [Volume fraction] 39.3 % 36.0 - 46.0 % [facility] Hemoglobin (Bld) [Mass/Vol] 12.4 g/dL 12.0 - 16.0 g/dL [facility] Immature granulocytes (Bld) [#/Vol] 0.03 10*3/uL [facility] Immature granulocytes/100 WBC (Bld) 0.4 % 0.0 - 0.9 % [facility] Comment on above: Immature Granulocyte Count (IG) includes promyelocytes, myelocytes and metamyelocytes but does not include bands. Percent differential counts (%) should be interpreted in the context of the absolute cell counts (cells/UL). Interpretation and review of laboratory results Abnormal [facility] Lymphocytes (Bld) [#/Vol] 2.33 10*3/uL [facility] Lymphocytes/100 WBC (Bld) 29.1 % 13.0 - 44.0 % [facility] MCH (RBC) [Entitic mass] 28.7 pg 26.0 - 34.0 pg [facility] MCHC (RBC) [Mass/Vol] 31.6 g/dL Low 32.0 - 36.0 g/dL [facility] MCV (RBC) [Entitic vol] 91 fL 80 - 100 fL [facility] Monocytes (Bld) [#/Vol] 0.87 10*3/uL High [facility] Monocytes/100 WBC (Bld) 10.9 % 2.0 - 10.0 % [facility] Neutrophils (Bld) [#/Vol] 4.52 10*3/uL [facility] Comment on above: Percent differential counts (%) should be interpreted in the context of the absolute cell counts (cells/uL). Neutrophils/100 WBC (Bld) 56.5 % 40.0 - 80.0 % [facility] Nucleated RBC/100 WBC (Bld) [Ratio] 0.0 % [facility] Platelet mean volume (Bld) [Entitic vol] 12.0 fL High 7.5 - 11.5 fL [facility] Platelets (Bld) [#/Vol] 147 10*3/uL Low [facility] RBC (Bld) [#/Vol] 4.32 10*6/uL [facility] WBC (Bld) [#/Vol] 8.0 10*3/uL [facility] Basophils (Bld) [#/Vol] 0.04 x10*3/uL Normal 0.00-0.10 [facility] Comment on above: Performed By: #### 5 7021-8 #### JANE BOLAÑOS ([id number]) [facility] ([facility]) [address] [place] [address] Basophils/100 WBC (Bld) 0.5 % Normal 0.0-2.0 [facility] Comment on above: Performed By: #### 5 7021-8 #### JANE BOLAÑOS ([id number]) [facility] ([facility]) [address] [place] [address] Eosinophils (Bld) [#/Vol] 0.21 x10*3/uL Normal 0.00-0.40 [facility] Comment on above: Performed By: #### 5 7021-8 #### JANE BOLAÑOS ([id number]) [facility] ([facility]) [address] [place] [address] Eosinophils/100 WBC (Bld) 2.6 % Normal 0.0-6.0 [facility] Comment on above: Performed By: #### 5 7021-8 #### JANE BOLAÑOS ([id number]) [facility] ([facility]) [address] [place] [address] Erythrocyte distribution width (RBC) [Ratio] 15.4 % High 11.5-14.5 [facility] Comment on above: Performed By: #### 5 7021-8 #### JANE BOLAÑOS ([id number]) [facility] ([facility]) [address] [place] [address] Hematocrit (Bld) [Volume fraction] 39.3 % Normal 36.0-46.0 [facility] Comment on above: Performed By: #### 5 7021-8 #### JANE BOLAÑOS ([id number]) [facility] ([facility]) [address] [place] [address] Hemoglobin (Bld) [Mass/Vol] 12.4 g/dL Normal 12.0-16.0 [facility] Comment on above: Performed By: #### 5 7021-8 #### JANE BOLAÑOS ([id number]) [facility] ([facility]) [address] [place] [address] Immature granulocytes (Bld) [#/Vol] 0.03 x10*3/uL Normal 0.00-0.50 [facility] Comment on above: Performed By: #### 5 7021-8 #### JANE BOLAÑOS ([id number]) [facility] ([facility]) [address] [place] [address] Immature granulocytes/100 WBC (Bld) 0.4 % Normal 0.0-0.9 [facility] Comment on above: Result Comment: Jennifer ture Granulocyte Count (IG) includes promyelocytes, myelocytes and metamyelocytes but does not include bands. Percent differential counts (%) should be interpreted in the context of the absolute cell counts (cells/UL). Performed By: #### 5 7021-8 #### JANE BOLAÑOS ([id number]) [facility] ([facility]) [address] [place] [address] Lymphocytes (Bld) [#/Vol] 2.33 x10*3/uL Normal 0.80-3.00 [facility] Comment on above: Performed By: #### 5 7021-8 #### JANE BOLAÑOS ([id number]) [facility] ([facility]) [address] [place] [address] Lymphocytes/100 WBC (Bld) 29.1 % Normal 13.0-44.0 [facility] Comment on above: Performed By: #### 5 7021-8 #### JANE BOLAÑOS ([id number]) [facility] ([facility]) [address] [place] [address] MCH (RBC) [Entitic mass] 28.7 pg Normal 26.0-34.0 [facility] Comment on above: Performed By: #### 5 7021-8 #### JANE BOLAÑOS ([id number]) [facility] ([facility]) [address] [place] [address] MCHC (RBC) [Mass/Vol] 31.6 g/dL Low 32.0-36.[address] [facility] Comment on above: Performed By: #### 5 7021-8 #### JANE BOLAÑOS ([id number]) [facility] ([facility]) [address] [place] [address] MCV (RBC) [Entitic vol] 91 fL Normal 80-100 [facility] Comment on above: Performed By: #### 5 7021-8 #### JANE BOLAÑOS ([id number]) [facility] ([facility]) [address] [place] [address] Monocytes (Bld) [#/Vol] 0.87 x10*3/uL High 0.05-0.80 [facility] Comment on above: Performed By: #### 5 7021-8 #### JANE BOLAÑOS ([id number]) [facility] ([facility]) [address] [place] [address] Monocytes/100 WBC (Bld) 10.9 % Normal 2.0-10.0 [facility] Comment on above: Performed By: #### 5 7021-8 #### JANE BOLAÑOS ([id number]) [facility] ([facility]) [address] [place] [address] Neutrophils (Bld) [#/Vol] 4.52 x10*3/uL Normal 1.60-5.50 [facility] Comment on above: Result Comment: Perc ent differential counts (%) should be interpreted in the context of the absolute cell counts (cells/uL). Performed By: #### 5 7021-8 #### JANE BOLAÑOS ([id number]) [facility] ([facility]) [address] [place] [address] Neutrophils/100 WBC (Bld) 56.5 % Normal 40.0-80.0 [facility] Comment on above: Performed By: #### 5 7021-8 #### JANE BOLAÑOS ([id number]) [facility] ([facility]) [address] [place] [address] Nucleated RBC/100 WBC (Bld) [Ratio] 0.0 /100 WBCs Normal 0.0-0.0 [facility] Comment on above: Performed By: #### 5 7021-8 #### JANE BOLAÑOS ([id number]) [facility] ([facility]) [address] [place] [address] Platelet mean volume (Bld) [Entitic vol] 12.0 fL High 7.5-11.5 [facility] Comment on above: Performed By: #### 5 7021-8 #### JANE BOLAÑOS ([id number]) [facility] ([facility]) [address] [place] [address] Platelets (Bld) [#/Vol] 147 x10*3/uL Low 150-450 [facility] Comment on above: Performed By: #### 5 7021-8 #### JANE BOLAÑOS ([id number]) [facility] ([facility]) [address] [place] [address] RBC (Bld) [#/Vol] 4.32 x10*6/uL Normal 4.00-5.20 [facility] [place] Comment on above: Performed By: #### 5 7021-8 #### JANE MIKY ([id number]) [facility] ([facility]) [address] [place] [address] WBC (Bld) [#/Vol] 8.0 x10*3/uL Normal 4.4-11.3 [facility] Comment on above: Performed By: #### 5 7021-8 #### JANE MIKY ([id number]) [facility] ([facility]) [address] [place] [address] CT CERVICAL SPINE WO IV CONT RASTon 11-29-2022 CT CERVICAL SPINE WO IV CONTRAST Interpreted By: Forrest Drew, STUDY: CT FACIAL BONES WO IV CONTRAST; CT HEAD W/O CONTRAST TRAUMA PROTOCOL; CT CERVICAL SPINE WO IV CONTRAST; 11/29/2022 4:37 pm INDICATION: Signs/Symptoms:fall , R frontal bone ecchymosis; Signs/Symptoms:Fall , right forehead hematoma, on Eliquis. COMPARISON: None. ACCESSION NUMBER(S): [id number]; [id number]; [id number] ORDERING CLINICIAN: CORBIN BORGES TECHNIQUE: Noncontrast axial [...] Forrest Drew 11/29/2022 4:54 PM Dictation workstation: [id number] [facility] CT FACIAL BONES WO IV CONTRA STon 11-29-2022 CT FACIAL BONES WO IV CONTRAST Interpreted By: Forrest Drew, STUDY: CT FACIAL BONES WO IV CONTRAST; CT HEAD W/O CONTRAST TRAUMA PROTOCOL; CT CERVICAL SPINE WO IV CONTRAST; 11/29/2022 4:37 pm INDICATION: Signs/Symptoms:fall , R frontal bone ecchymosis; Signs/Symptoms:Fall , right forehead hematoma, on Eliquis. COMPARISON: None. ACCESSION NUMBER(S): [id number]; [id number]; [id number] ORDERING CLINICIAN: CORBIN BRYAN; FLORENCE BORGES TECHNIQUE: [...] Forrest Drew 11/29/2022 4:54 PM Dictation workstation: [id number] [facility] CT HEAD W/O CONTRAST TRAUMA PROTOCOLon 11-29-2022 CT HEAD W/O CONTRAST TRAUMA PROTOCOL Interpreted By: Forrest Drew, STUDY: CT FACIAL BONES WO IV CONTRAST; CT HEAD W/O CONTRAST TRAUMA PROTOCOL; CT CERVICAL SPINE WO IV CONTRAST; 11/29/2022 4:37 pm INDICATION: Signs/Symptoms:fall , R frontal bone ecchymosis; Signs/Symptoms:Fall , right forehead hematoma, on Eliquis. COMPARISON: None. ACCESSION NUMBER(S): [id number]; [id number]; [id number] ORDERING CLINICIAN: CORBIN BORGES TECHNIQUE: Noncontrast axial [...] Forrest Drew 11/29/2022 4:54 PM Dictation workstation: [id number] [facility] CT HEAD WO IV CONTRASTon CT HEAD WO IV CONTRAST Interpreted By: Michael Sharp, STUDY: CT HEAD WO IV CONTRAST; 11/29/2022 11:09 pm INDICATION: Stability scan for subdural hemorrhage. COMPARISON: CT brain 11/29/2022 at 4:24 p.m.. ACCESSION NUMBER(S): [id number] ORDERING CLINICIAN: FLORENCE BOGRES TECHNIQUE: Axial noncontrast CT images of the [...] Michael Sharp 11/29/2022 11:18 PM Dictation workstation: [id number] [facility] CT Head WO contraston 2022 Persistent [...] Michael Sharp 11/29/2022 11:18 PM Dictation workstation: [id number] Interpreted By: Michael Sharp, STUDY: CT HEAD WO IV CONTRAST; 11/29/2022 11:09 pm INDICATION: Stability scan for subdural hemorrhage. COMPARISON: CT brain 11/29/2022 at 4:24 p.m.. ACCESSION NUMBER(S): [id number] ORDERING CLINICIAN: FLORENCE BORGES TECHNIQUE: Axial noncontrast [...] brain 11/29/2022 at 4:24 p.m.. ACCESSION NUMBER(S): [id number] ORDERING CLINICIAN: FLORENCE BORGES TECHNIQUE: Axial noncontrast [...] Michael Sharp 11/29/2022 11:18 PM Dictation workstation: [id number] [facility] Work Phone: Radiology Study observation (narrative) [facility] Work Phone: CT Head WO contrastOrdered B y: Michael Sharp on 11-29-2022 [facility] Work Phone: Coagulation tissue factor in ducedon 11-29-2022 PT Coag (PPP) [Time] 15.4 s High 9.8-12.8 [facility] Comment on above: Performed By: #### 5 902-2 #### JANE BOLAÑOS ([id number]) [facility] ([facility]) [address] [place] [address] ECG 12-LEADon 11-29-2022 ECG 12-LEAD Ventricular Rate 62 Atrial Rate 62 P-R Interval 192 QRS Duration 90 Q-T Interval 465 QTC Calculation(Bazett) 473 P [place] -8 R [place] -19 T [place] 43 QRS Count 10 Q Onset 251 T Offset 484 QTC Fredericia 470 Diagnosis Sinus rhythm Inferior infarct, old Anteroseptal infarct, old See ED provider note for full interpretation and clinical correlation Confirmed by Suly Chambers ([id number]) on 02/14/2023 3:29:09 PM Normal [facility] Glucose Test strip manual (B ld) [Mass/Vol]on 11-29-2022 Glucose [Mass/Vol] 105 mg/dL High 74 - 99 mg/dL [facility] Interpretation and review of laboratory results Abnormal [facility] Glucose [Mass/Vol] 105 mg/dL High 74-99 [facility] Comment on above: Performed By: #### 2 341-6 #### JANE BOLAÑOS ([id number]) [facility] ([facility]) [address] [place] [address] No Panel Informationon 11-29 Acute subdural hematoma [...] Forrest Drew 11/29/2022 4:54 PM Dictation workstation: [id number] [facility] Interpreted By: Forrest Drew, STUDY: CT FACIAL BONES WO IV CONTRAST; CT HEAD W/O CONTRAST TRAUMA PROTOCOL; CT CERVICAL SPINE WO IV CONTRAST; 11/29/2022 4:37 pm INDICATION: Signs/Symptoms:fall , R frontal bone ecchymosis; Signs/Symptoms:Fall , right forehead hematoma, on Eliquis. COMPARISON: None. ACCESSION NUMBER(S): [id number]; [id number]; [id number] ORDERING CLINICIAN: CORBIN BRYAN; FLORENCE BORGES TECHNIQUE: [...] hematoma, on Eliquis. COMPARISON: None. ACCESSION NUMBER(S): [id number]; [id number]; [id number] ORDERING CLINICIAN: CORBIN BORGES TECHNIQUE: Noncontrast axial [...] Forrest Drew 11/29/2022 4:54 PM Dictation workstation: [id number] [facility] Work Phone: Radiology Study observation (narrative) [facility] Work Phone: No Panel InformationOrdered By: Forrest Drew on 11-29-2022 [facility] Work Phone: PT Coag (PPP) [Time]on 11-29 INR Coag (PPP) [Relative time] 1.4 {INR} High 0.9 - 1.1 [facility] Interpretation and review of laboratory results Abnormal [facility] INR Coag (PPP) [Relative time] 1.4 High 0.9-1.1 [facility] Comment on above: Performed By: #### 5 902-2 #### JANE BOLAÑOS ([id number]) [facility] ([facility]) [address] [place] [address] Protime-INRon 11-29-2022 PT Coag (PPP) [Time] 15.4 s High [facility] CBC AND DIFFERENTIALon 10-06 % AUTOMATED IMMATURE GRAN 0.3 % Normal 0.0 - 0.9 [facility] Comment on above: Result Comment: Jennifer ture Granulocyte Count (IG) includes promyelocytes, myelocytes and metamyelocytes but does not include bands. Percent differential counts (%) should be interpreted in the context of the absolute cell counts (cells/L). Performed By: #### I RONT #### [facility] [address] [place] [address] Basophils (Bld) [#/Vol] 0.06 10*3/uL Normal 0.00 - 0.1 0 [facility] Comment on above: Performed By: #### I RONT #### [facility] [address] [place] [address] Basophils/100 WBC (Bld) 0.7 % Normal 0.0 - 2.[address] [facility] Comment on above: Performed By: #### I RONT #### [facility] [address] [place] [address] Eosinophils (Bld) [#/Vol] 0.32 10*3/uL Normal 0.00 - 0.40 [facility] Comment on above: Performed By: #### I RONT #### [facility] [address] [place] [address] Eosinophils/100 WBC (Bld) 3.6 % Normal 0.0 - 6.0 [facility] Comment on above: Performed By: #### I RONT #### [facility] [address] [place] [address] Erythrocyte distribution width (RBC) [Ratio] 14.7 % High 11.5 - 14.5 [facility] Comment on above: Performed By: #### I RONT #### [facility] [address] [place] [address] Hematocrit (Bld) [Volume fraction] 42.0 % Normal 36.0 - 46.0 [facility] Comment on above: Performed By: #### I RONT #### [facility] [address] [place] [address] Hemoglobin (Bld) [Mass/Vol] 12.5 g/dL Normal 12.0 - 16.0 [facility] Comment on above: Performed By: #### Jasmina VORAT #### [facility] [address] [place] [address] Lymphocytes (Bld) [#/Vol] 2.52 10*3/uL Normal 0.80 - 3.00 [facility] Comment on above: Performed By: #### Jasmina VORAT #### [facility] [address] [place] [address] Lymphocytes/100 WBC (Bld) 28.0 % Normal 13.0 - 44.0 [facility] Comment on above: Performed By: #### Jasmina VORAT #### [facility] [address] [place] [address] MCHC (RBC) [Mass/Vol] 29.8 g/dL Low 32.0 - 36.0 [facility] Comment on above: Performed By: #### Jasmina KIDD #### [facility] [address] [place] [address] MCV (RBC) [Entitic vol] 92 fL Normal 80 - 100 [facility] Comment on above: Performed By: #### Jasmina KIDD #### [facility] [address] [place] [address] Monocytes (Bld) [#/Vol] 0.92 10*3/uL High 0.05 - 0.8 0 [facility] Comment on above: Performed By: #### Jasmina VORAT #### [facility] [address] [place] [address] Monocytes/100 WBC (Bld) 10.2 % Normal 2.0 - 10.[address] [facility] Comment on above: Performed By: #### Jasmina VORAT #### [facility] [address] [place] [address] Neutrophils (Bld) [#/Vol] 5.16 10*3/uL Normal 1.60 - 5.50 [facility] Comment on above: Performed By: #### Jasmina KIDD #### [facility] [address] [place] [address] Neutrophils/100 WBC (Bld) 57.2 % Normal 40.0 - 80.0 [facility] Comment on above: Performed By: #### I RONT #### [facility] [address] [place] [address] NUCLEATED RBC 0.0 /100 WBC Normal 0.0-0.0 [facility] Comment on above: Performed By: #### I RONT #### [facility] [address] [place] [address] Platelets (Bld) [#/Vol] 156 10*3/uL Normal 150 - 450 [facility] Comment on above: Performed By: #### I RONT #### [facility] [address] [place] [address] RBC 4.56 x10E12/L Normal 4.00 - 5.20 [facility] Comment on above: Performed By: #### I RONT #### [facility] [address] [place] [address] WBC (Bld) [#/Vol] 9.0 10*3/uL Normal 4.4 - 11.3 [facility] Comment on above: Performed By: #### I RONT #### [facility] [address] [place] [address] FERRITINon 10-06-2022 FERRITIN 48 ug/L Normal 8 - 150 [facility] Comment on above: Performed By: #### F ERRI #### [facility] [address] [place] [address] IRON + TIBCon 10-06-2022 % SATURATION 22 % Low 25 - 45 [facility] Comment on above: Performed By: #### I RONT #### [facility] [address] [place] [address] Iron [Mass/Vol] 78 ug/dL Normal 35 - 150 [facility] Comment on above: Performed By: #### I RONT #### [facility] [address] [place] [address] TIBC 361 ug/dL Normal 240 - 445 [facility] Comment on above: Performed By: #### I RONT #### [facility] [address] [place] [address] FERRITINon 10-05-2022 Lab Specimen Source Normal [facility] Comment on above: Performed By: #### F ERRI #### [facility] [address] [place] [address] Performed By: #### I RONT #### [facility] [address] [place] [address] HIP, UNILATERAL W/PELVIS WHE N PERFORMED 2-3 VIEWSon 10-05-2022 HIP, UNILATERAL W/PELVIS WHEN PERFORMED 2-3 VIEWS Patient Name: INGRID DONALD STUDY: HIP, UNILATERAL W/PELVIS WHEN PERFORMED 2-3 VIEWS; 10/05/2022 12:06 pm INDICATION: pain. COMPARISON: None. ACCESSION NUMBER(S): [id number] ORDERING CLINICIAN: EITAN PRICE FINDINGS: No acute fracture is identified. No dislocation is seen. There are no lytic or blastic lesions. No radiopaque foreign bodies are noted. There are degenerative changes including joint space narrowing, spurring, and subchondral sclerosis. IMPRESSION: No radiographic evidence of an acute fracture. Electronically signed by: TRENT CARROLL MD Normal [facility] SPINE, LUMBOSACRAL; 2 OR 3 V IEWSon 10-05-2022 SPINE, LUMBOSACRAL; 2 OR 3 VIEWS Patient Name: INGRID DONALD STUDY: SPINE, LUMBOSACRAL; 2 OR 3 VIEWS; 10/05/2022 12:06 pm INDICATION: sciatica/hip pain. COMPARISON: None. ACCESSION NUMBER(S): [id number] ORDERING CLINICIAN: EITAN PRICE FINDINGS: No acute [...] Electronically signed by: TRENT CARROLL MD Normal [facility] VITAMIN D 1,25-DIHYDROXYon 0 06-28-2022 VITAMIN D 1,25-DIHYDROXY 22.7 pg/mL Normal 19.9-79.3 [facility] Comment on above: Result Comment: INTE RPRETIVE INFORMATION: Vitamin D, 1,25-Dihydroxy This test is primarily indicated during patient evaluation for hypercalcemia and renal failure. A normal result does not rule out Vitamin D deficiency. The recommended test for diagnosing Vitamin D deficiency is Vitamin D 25-hydroxy. Performed By: [facility] [address] [place] [address] Education Program Coordinator: Farhan Moore MD, PhD Performed By: #### V TDDI #### [facility] [address] [place] [address] CBC AND DIFFERENTIALon 06-27 % AUTOMATED IMMATURE GRAN 0.4 % Normal 0.0 - 0.9 [facility] Comment on above: Result Comment: Jennifer ture Granulocyte Count (IG) includes promyelocytes, myelocytes and metamyelocytes but does not include bands. Percent differential counts (%) should be interpreted in the context of the absolute cell counts (cells/L). Performed By: #### C BCDF #### [facility] [address] [place] [address] Basophils (Bld) [#/Vol] 0.03 10*3/uL Normal 0.00 - 0.1 0 [facility] Comment on above: Performed By: #### C BCDF #### [facility] [address] [place] [address] Basophils/100 WBC (Bld) 0.6 % Normal 0.0 - 2.[address] [facility] Comment on above: Performed By: #### C BCDF #### [facility] [address] [place] [address] Eosinophils (Bld) [#/Vol] 0.19 10*3/uL Normal 0.00 - 0.40 [facility] Comment on above: Performed By: #### C BCDF #### [facility] [address] [place] [address] Eosinophils/100 WBC (Bld) 3.5 % Normal 0.0 - 6.0 [facility] Comment on above: Performed By: #### C BCDF #### [facility] [address] [place] [address] Erythrocyte distribution width (RBC) [Ratio] 16.2 % High 11.5 - 14.5 [facility] Comment on above: Performed By: #### C BCDF #### [facility] [address] [place] [address] Hematocrit (Bld) [Volume fraction] 33.3 % Low 36.0 - 46.0 [facility] Comment on above: Performed By: #### C BCDF #### [facility] [address] [place] [address] Hemoglobin (Bld) [Mass/Vol] 9.7 g/dL Low 12.0 - 16.0 [facility] Comment on above: Performed By: #### C BCDF #### [facility] [address] [place] [address] Lymphocytes (Bld) [#/Vol] 1.64 10*3/uL Normal 0.80 - 3.00 [facility] Comment on above: Performed By: #### C BCDF #### [facility] [address] [place] [address] Lymphocytes/100 WBC (Bld) 30.3 % Normal 13.0 - 44.0 [facility] Comment on above: Performed By: #### C BCDF #### [facility] [address] [place] [address] MCHC (RBC) [Mass/Vol] 29.1 g/dL Low 32.0 - 36.0 [facility] Comment on above: Performed By: #### C BCDF #### [facility] [address] [place] [address] MCV (RBC) [Entitic vol] 95 fL Normal 80 - [address] [facility] Comment on above: Performed By: #### C BCDF #### [facility] [address] [place] [address] Monocytes (Bld) [#/Vol] 0.60 10*3/uL Normal 0.05 - 0.8 0 [facility] Comment on above: Performed By: #### C BCDF #### [facility] [address] [place] [address] Monocytes/100 WBC (Bld) 11.1 % Normal 2.0 - 10.[address] [facility] Comment on above: Performed By: #### C BCDF #### [facility] [address] [place] [address] Neutrophils (Bld) [#/Vol] 2.94 10*3/uL Normal 1.60 - 5.50 [facility] Comment on above: Performed By: #### C BCDF #### [facility] [address] [place] [address] Neutrophils/100 WBC (Bld) 54.1 % Normal 40.0 - 80.0 [facility] Comment on above: Performed By: #### C BCDF #### [facility] [address] [place] [address] NUCLEATED RBC 0.0 /100 WBC Normal 0.0-0.0 [facility] Comment on above: Performed By: #### C BCDF #### [facility] [address] [place] [address] Platelets (Bld) [#/Vol] 144 10*3/uL Low 150 - 450 [facility] Comment on above: Performed By: #### C BCDF #### [facility] [address] [place] [address] RBC 3.50 x10E12/L Low 4.00 - 5.20 [facility] Comment on above: Performed By: #### C BCDF #### [facility] [address] [place] [address] WBC (Bld) [#/Vol] 5.4 10*3/uL Normal 4.4 - 11.3 [facility] Comment on above: Performed By: #### C BCDF #### [facility] [address] [place] [address] HEMOGLOBIN A1Con 06-27-2022 Glucose [Mass/Vol] 120 mg/dL Normal [facility] Comment on above: Performed By: #### H BA1E #### [facility] [address] [place] [address] HbA1c (Bld) [Mass fraction] 5.8 % Abnormal [facility] Comment on above: Result Comment: Diag nosis of Diabetes-Adults Non-Diabetic: < or = 5.6% Increased risk for developing diabetes: 5.7-6.4% Diagnostic of diabetes: > or = 6.5% . Monitoring of Diabetes Age (y) Therapeutic Goal (%) Adults: >18 <7.0 Pediatrics: 13-18 <7.5 7-12 <8.0 0- 6 7.5-8.5 [employer]. Diabetes Care 33(S1), Feb 2009. Performed By: #### H BA1E #### [facility] [address] [place] [address] TSH WITH REFLEX TO FREE T4 I F ABNORMALon 06-27-2022 TSH Qn 3.32 m[IU]/L Normal 0.44 - 3.98 [facility] Comment on above: Result Comment: TSH testing is performed using different testing methodology at [facility] than at [facility]. Direct result comparisons should only be made within the same method. Performed By: #### T HYDS #### [facility] [address] [place] [address] VITAMIN B12on 06-27-2022 Cobalamin (Vitamin B12) [Mass/Vol] 831 pg/mL Normal 211 - 911 [facility] Comment on above: Performed By: #### I RONT #### [facility] [address] [place] [address] COMPREHENSIVE PANELon 2022 Albumin [Mass/Vol] 3.5 g/dL Normal 3.4 - 5.0 [facility] Comment on above: Performed By: #### C MP #### [facility] [address] [place] [address] ALP [Catalytic activity/Vol] 49 U/L Normal 33 - 136 [facility] Comment on above: Performed By: #### C MP #### [facility] [address] [place] [address] ALT [Catalytic activity/Vol] 9 U/L Normal 7 - 45 [facility] Comment on above: Result Comment: Carlota ents treated with Sulfasalazine may generate falsely decreased results for ALT. Performed By: #### C MP #### [facility] [address] [place] [address] Anion gap [Moles/Vol] 13 mmol/L Normal 10 - 20 [facility] Comment on above: Performed By: #### C MP #### [facility] [address] [place] [address] AST [Catalytic activity/Vol] 13 U/L Normal 9 - 39 [facility] Comment on above: Performed By: #### C MP #### [facility] [address] [place] [address] Bilirubin [Mass/Vol] 0.7 mg/dL Normal 0.0 - 1.2 [facility] Comment on above: Performed By: #### C MP #### [facility] [address] [place] [address] Calcium [Mass/Vol] 8.9 mg/dL Normal 8.6 - 10.6 [facility] Comment on above: Performed By: #### C MP #### [facility] [address] [place] [address] Chloride [Moles/Vol] 110 mmol/L High 98 - 107 [facility] Comment on above: Performed By: #### C MP #### [facility] [address] [place] [address] Creatinine [Mass/Vol] 1.59 mg/dL High 0.50 - 1.05 [facility] Comment on above: Performed By: #### C MP #### [facility] [address] [place] [address] GFR/1.73 sq M.predicted among non-blacks MDRD (S/P/Bld) [Vol rate/Area] 31 mL/min/{1.73_m2} Abnormal >90 [facility] Comment on above: Result Comment: CALC ULATIONS OF ESTIMATED GFR ARE PERFORMED USING THE 2020 CKD-EPI STUDY REFIT EQUATION WITHOUT THE RACE VARIABLE FOR THE IDMS-TRACEABLE CREATININE METHODS. https://jasn.asnjournals.org/content/early//ASN 003719 Performed By: #### C MP #### [facility] [address] [place] [address] Glucose [Mass/Vol] 94 mg/dL Normal 74 - 99 [facility] Comment on above: Performed By: #### C MP #### [facility] [address] [place] [address] HCO3 (Bld) [Moles/Vol] 25 mmol/L Normal 21 - 32 [facility] Comment on above: Performed By: #### C MP #### [facility] [address] [place] [address] Potassium [Moles/Vol] 4.8 mmol/L Normal 3.5 - 5.3 [facility] Comment on above: Performed By: #### C MP #### [facility] [address] [place] [address] Protein [Mass/Vol] 5.8 g/dL Low 6.4 - 8.2 [facility] Comment on above: Performed By: #### C MP #### [facility] [address] [place] [address] Sodium [Moles/Vol] 143 mmol/L Normal 136 - 145 [facility] Comment on above: Performed By: #### C MP #### [facility] [address] [place] [address] Urea nitrogen [Mass/Vol] 20 mg/dL Normal 6 - 23 [facility] Comment on above: Performed By: #### C MP #### [facility] [address] [place] [address] IRON + TIBCon 06-26-2022 % SATURATION 10 % Low 25 - 45 [facility] Comment on above: Performed By: #### I RONT #### [facility] [address] [place] [address] Iron [Mass/Vol] 38 ug/dL Normal 35 - 150 [facility] Comment on above: Performed By: #### I RONT #### [facility] [address] [place], [place] TIBC 383 ug/dL Normal 240 - 445 [facility] Comment on above: Performed By: #### I RONT #### [facility] [address] [place], [place] Lab Specimen Source Normal [facility] Comment on above: Performed By: #### I RONT #### [facility] [address] [place], [place] Performed By: #### T HYDS #### [facility] [address] [place], [place] Performed By: #### V TDDI #### [facility] [address] [place] [address] Performed By: #### C MP #### [facility] [address] [place], [place] Performed By: #### L IPID #### [facility] [address] [place], [place] Performed By: #### C BCDF #### [facility] [address] [place] LIPID PANEL (CORONARY RISK 2 )on 06-26-2022 Cholesterol [Mass/Vol] 72 mg/dL Normal 0 - 199 [facility] Comment on above: Result Comment: . AGE [...] dosing. Performed By: #### L IPID #### [facility] [address] [place] Cholesterol in HDL [Mass/Vol] 35.6 mg/dL Abnormal [facility] Comment on above: Result Comment: . AGE VERY LOW LOW NORMAL HIGH 0-19 Y < 35 < 40 40-45 ---- 20-24 Y ---- < 40 >45 ---- >24 Y ---- < 40 40-60 >60 . Performed By: #### L IPID #### [facility] [address] [place] [address] Cholesterol in LDL [Mass/Vol] 21 mg/dL Normal 0 - 99 [facility] Comment on above: Result Comment: . NEAR BORD AGE DESIRABLE OPTIMAL HIGH HIGH VERY HIGH 0-19 Y 0 - 109 --- 110-129 >/= 130 ---- 20-24 Y 0 - 119 --- 120-159 >/= 160 ---- >24 Y 0 - 99 100-129 130-159 160-189 >/=190 . Performed By: #### L IPID #### [facility] [address] [place] [address] Cholesterol in VLDL [Mass/Vol] 15 mg/dL Normal 0 - 40 [facility] Comment on above: Performed By: #### L IPID #### [facility] [address] [place] [address] Cholesterol.total/Mary sterol in HDL [Mass ratio] 2.0 {ratio} Normal [facility] Comment on above: Result Comment: REF VALUES DESIRABLE < 3.4 HIGH RISK > 5.0 Performed By: #### L IPID #### [facility] [id number] [place] [address] Triglyceride [Mass/Vol] 75 mg/dL Normal 0 - [address] [facility] Comment on above: Result Comment: . AGE [...] dosing. Performed By: #### L IPID #### [facility] [id number] [place] [address] CHEST 2 VIEW PA AND LATon CHEST 2 VIEW PA AND LAT Patient Name: INGRID DONALD STUDY: TH CHEST 2 VIEW PA AND LAT; 06/02/2022 11:52 am INDICATION: pneumonia one month ago.. COMPARISON: 08/12/2018 ACCESSION NUMBER(S): [id number] ORDERING CLINICIAN: TORI ROBLERO FINDINGS: There is a small left pleural effusion with left basilar airspace disease. There is a small right pleural effusion as well. The cardiac silhouette is mildly enlarged. There is no jb edema. IMPRESSION: Small bilateral pleural effusions. Mild bibasilar atelectasis. Electronically signed by: AYDEN BURKS MD [facility] CBC W Auto Differential pane l (Bld)Ordered By: Erica James on 01-11-2022 Basophils (Bld) [#/Vol] 0.0 10*3/uL 0.0 - 0.2 10*3/uL [facility] Basophils/100 WBC (Bld) 0.1 % 0.0 - 2.0 % [facility] Eosinophils (Bld) [#/Vol] 0.0 10*3/uL 0.0 - 0.5 10*3/uL [facility] Eosinophils/100 WBC (Bld) 0.0 % Low 1.0 - 6.0 % [facility] Erythrocyte distribution width (RBC) [Ratio] 19.0 % High 11.5 - 14.5 % [facility] Hematocrit (Bld) [Volume fraction] 33.0 % Low 35.0 - 47.0 % [facility] Hemoglobin (Bld) [Mass/Vol] 10.5 g/dL Low 11.7 - 16.0 g/dL [facility] Immature granulocytes (Bld) [#/Vol] 0.1 10*3/uL High NINF - 0.0 10*3/uL [facility] Immature granulocytes/100 WBC (Bld) 0.5 % High NINF - 0.0 % [facility] Interpretation and review of laboratory results Abnormal [facility] Lymphocytes (Bld) [#/Vol] 1.8 10*3/uL 1.0 - 4.3 10*3/uL [facility] Lymphocytes/100 WBC (Bld) 18.4 % Low 20.0 - 40.0 % [facility] MCH (RBC) [Entitic mass] 27.3 pg 26.0 - 34.0 pg [facility] MCHC (RBC) [Mass/Vol] 31.8 % Low 32.0 - 36.0 % [facility] MCV (RBC) [Entitic vol] 85.7 fL 80.0 - 98.0 fL [facility] Monocytes (Bld) [#/Vol] 0.8 10*3/uL 0.0 - 0.8 10*3/uL [facility] Monocytes/100 WBC (Bld) 8.3 % 2.0 - 10.0 % [facility] Neutrophils (Bld) [#/Vol] 7.1 10*3/uL High 1.8 - 7.0 10*3/uL [facility] Neutrophils/100 WBC (Bld) 72.7 % 40.0 - 80.0 % [facility] Platelet mean volume (Bld) [Entitic vol] 12.2 fL 7.4 - 12.4 fL [facility] Comment on above: MPV is a calculated measurement using platelet volume ratio Platelets (Bld) [#/Vol] 170 10*3/uL 140 - 440 10*3/uL [facility] RBC (Bld) [#/Vol] 3.85 10*6/uL 3.8 - 5.20 10*6/uL [facility] WBC (Bld) [#/Vol] 9.8 10*3/uL 3.6 - 10.7 10*3/uL [facility] Office Visit (Internal Medic ine)on 12-14-2021 Follow-up [...] edema better Review of Systems as per mechoopda anxiety seems better Active Problems Problems Abnormal [...] Losartan Pot (more content not included)... Normal [employer] Tobacco Screening.on 022 Adult depression screening assessment No [facility] Work Phone: Fall risk assessment a) No falls within the last year [facility] Work Phone: Tobacco use status CPHS b) No M [facility] Work Phone: Complete Blood Count + Diffe keyla 12-08-2021 Basophils/100 WBC (Bld) 0.8 % 0.0 - 2.0 M [facility] Work Phone: Erythrocyte distribution width (RBC) [Ratio] 19.9 % above high threshold See Below [facility] Internal [facility] Work Phone: Comment on above: Reference Range: 11. 5 - 14.5 Hematocrit (Bld) [Volume fraction] 32.7 % below low threshold See Below [facility] Work Phone: Comment on above: Reference Range: 36. 0 - 46.0 Hemoglobin (Bld) [Mass/Vol] 9.5 g/dL below low threshold See Below [facility] Work Phone: Comment on above: Reference Range: 12. 0 - 16.0 Lymphocytes/100 WBC (Bld) 31.3 % See Below [facility] Work Phone: Comment on above: Reference Range: 13. 0 - 44.0 MCHC (RBC) [Mass/Vol] 29.1 g/dL below low threshold See Below [facility] Work Phone: Comment on above: Reference Range: 32. 0 - 36.0 MCV (RBC) [Entitic vol] 86 fL 80 - 100 M [facility] Work Phone: Monocytes/100 WBC (Bld) 9.7 % 2.0 - 10.0 M [facility] Work Phone: Neutrophils/100 WBC (Bld) 55.3 % See Below [facility] Work Phone: Comment on above: Reference Range: 40. 0 - 80.0 Platelets (Bld) [#/Vol] 191 10*3/uL 150 - 450 [facility] Work Phone: RBC (Bld) [#/Vol] 3.81 {x10E12/L} below low threshold See Below [facility] Work Phone: Comment on above: Reference Range: 4.0 0 - 5.20 WBC (Bld) [#/Vol] 7.2 10*3/uL 4.4 - 11.3 [facility] Work Phone: Complete Blood Count + Differential 0.06 {x10E9/L} See Below [facility] Work Phone: Comment on above: Reference Range: 0.0 0 - 0.10 Complete Blood Count + Differential 0.19 {x10E9/L} See Below [facility] Work Phone: Comment on above: Reference Range: 0.0 0 - 0.40 Complete Blood Count + Differential 0.70 {x10E9/L} See Below [facility] Work Phone: Comment on above: Reference Range: 0.0 5 - 0.80 Complete Blood Count + Differential 2.26 {x10E9/L} See Below [facility] Work Phone: Comment on above: Reference Range: 0.8 0 - 3.00 Complete Blood Count + Differential 4.00 {x10E9/L} See Below [facility] Work Phone: Comment on above: Reference Range: 1.6 0 - 5.50 Complete Blood Count + Differential 2.6 % 0.0 - 6.0 [facility] Work Phone: Complete Blood Count + Differential 0.3 % 0.0 - 0.9 [facility] Work Phone: Comment on above: Immature Granulocyte Count (IG) includes promyelocytes, myelocytes and metamyelocytes but does not include bands. Percent differential counts (%) should be interpreted in the context of the absolute cell counts (cells/L). Complete Blood Count + Differential 0.0 {/100_WBC} 0.0-0.0 [facility] Work Phone: Ferritin, Serumon 12-08-2021 Ferritin [Mass/Vol] 188 ug/L above high threshold 8 - 150 [facility] Work Phone: Laboratory - Chemistry and C hemistry - challengeon 12-08-2021 Iron [Mass/Vol] 346 ug/dL above high threshold 35 - 150 [facility] Work Phone: Iron binding capacity [Mass/Vol] 403 ug/dL 240 - 445 [facility] Work Phone: No Panel Informationon 12-08 86 % above high threshold 25 - 45 [facility] Work Phone: Office Visit (Internal Medic [...] stage II; MARGARET = N; [facility]: [id number] Patient Discussion/Summary refer dr reynaga anemia iron supplementation f/u 4 weeks w/ cbc, iron studies Chief Complaint Pt is here for 1 month follow up. History of Present Illnessf/u anemia, edema, dm, ashd, htn, hyperlipidemia, pa no abd pain, melena, hc edema better Review of Systems as per mechoopda Active Problems Problems Abnormal serum creatinine level [...] NameInstruction ALBERTO (more content not included)... Normal [employer] Tobacco Screening.on Adult depression screening assessment No [facility] Work Phone: Fall risk assessment a) No falls within the last year [facility] Work Phone: Tobacco use status CPHS b) No M [facility] Work Phone: Complete Blood Count + Diffe brendaon 11-05-2021 Basophils/100 WBC (Bld) 0.5 % 0.0 - 2.0 M [facility] Work Phone: Erythrocyte distribution width (RBC) [Ratio] 17.2 % above high threshold See Below [facility] Work Phone: Comment on above: Reference Range: 11. 5 - 14.5 Hematocrit (Bld) [Volume fraction] 27.6 % below low threshold See Below [facility] Work Phone: Comment on above: Reference Range: 36. 0 - 46.0 Hemoglobin (Bld) [Mass/Vol] 8.1 g/dL below low threshold See Below [facility] Work Phone: Comment on above: Reference Range: 12. 0 - 16.0 Lymphocytes/100 WBC (Bld) 28.6 % See Below [facility] Work Phone: Comment on above: Reference Range: 13. 0 - 44.0 MCHC (RBC) [Mass/Vol] 29.3 g/dL below low threshold See Below [facility] Work Phone: Comment on above: Reference Range: 32. 0 - 36.0 MCV (RBC) [Entitic vol] 82 fL 80 - 100 M [facility] Work Phone: Monocytes/100 WBC (Bld) 10.3 % 2.0 - 10.0 M [facility] Work Phone: Neutrophils/100 WBC (Bld) 58.1 % See Below [facility] Work Phone: Comment on above: Reference Range: 40. 0 - 80.0 Platelets (Bld) [#/Vol] 180 10*3/uL 150 - 450 [facility] Work Phone: RBC (Bld) [#/Vol] 3.35 {x10E12/L} below low threshold See Below [facility] Work Phone: Comment on above: Reference Range: 4.0 0 - 5.20 WBC (Bld) [#/Vol] 6.2 10*3/uL 4.4 - 11.3 [facility] Work Phone: Complete Blood Count + Differential 0.03 {x10E9/L} See Below [facility] Work Phone: Comment on above: Reference Range: 0.0 0 - 0.10 Complete Blood Count + Differential 0.14 {x10E9/L} See Below [facility] Work Phone: Comment on above: Reference Range: 0.0 0 - 0.40 Complete Blood Count + Differential 0.64 {x10E9/L} See Below [facility] Work Phone: Comment on above: Reference Range: 0.0 5 - 0.80 Complete Blood Count + Differential 1.78 {x10E9/L} See Below [facility] Work Phone: Comment on above: Reference Range: 0.8 0 - 3.00 Complete Blood Count + Differential 3.62 {x10E9/L} See Below [facility] Work Phone: Comment on above: Reference Range: 1.6 0 - 5.50 Complete Blood Count + Differential 2.3 % 0.0 - 6.0 [facility] Work Phone: Complete Blood Count + Differential 0.2 % 0.0 - 0.9 [facility] Work Phone: Comment on above: Immature Granulocyte Count (IG) includes promyelocytes, myelocytes and metamyelocytes but does not include bands. Percent differential counts (%) should be interpreted in the context of the absolute cell counts (cells/L). Complete Blood Count + Differential 0.0 {/100_WBC} 0.0-0.0 [facility] Work Phone: Erythropoietin Assayon 11-05 Erythropoietin (EPO) Qn 51.3 {mIU/mL} above hi gh threshold 2.6-18.5 [facility] Work Phone: Comment on above: 1234ENTER UniC el DxI 800 Immunoassay SystemValues obtained with different assay methods or kits cannot be usedinterchangeably. Results cannot be interpreted as absolute evidenceof the presence or absence of malignant disease. Ferritin, Serumon 11-05-2021 Ferritin [Mass/Vol] 8 ug/L 8 - 150 [facility] Work Phone: Folate, Serumon 11-05-2021 Folate [Mass/Vol] 10.6 ng/mL >5.0 [facility] Work Phone: Comment on above: Low <3.4Borderline [...] gap [Moles/Vol] 12 mmol/L 10 - 20 [facility] Work Phone: Calcium [Mass/Vol] 9.2 mg/dL 8.6 - 10.6 [facility] Work Phone: Chloride [Moles/Vol] 106 mmol/L 98 - 107 [facility] Work Phone: CO2 [Moles/Vol] 26 mmol/L 21 - 32 [facility] Work Phone: Creatinine [Mass/Vol] 1.60 mg/dL above high threshold See Below [facility] Work Phone: Comment on above: Reference Range: 0.5 0 - 1.05 Glucose [Mass/Vol] 118 mg/dL above high threshold 74 - 99 [facility] Work Phone: Iron [Mass/Vol] 35 ug/dL 35 - 150 [facility] Work Phone: Iron binding capacity [Mass/Vol] 466 ug/dL above high threshold 240 - 445 [facility] Work Phone: Potassium [Moles/Vol] 4.4 mmol/L 3.5 - 5.3 [facility] Work Phone: Sodium [Moles/Vol] 140 mmol/L 136 - 145 [facility] Work Phone: Urea nitrogen [Mass/Vol] 26 mg/dL above high threshold 6 - 23 [facility] Work Phone: No Panel Informationon 11-05 8 % below low threshold 25 - 45 [facility]: 31 {mL/min/1.73m2} Abnormal >90 [facility] Work [facility]: Comment on above: CALCULATIONS OF STEVO MATED GFR ARE PERFORMED USING THE 2020 CKD-EPI STUDY REFIT EQUATION WITHOUT THE RACE VARIABLE FOR THE IDMS-TRACEABLE CREATININE METHODS.https://jasn.asnjournals.org/content/early// ASN.6626438306 PROTEIN ELECTROPHORESIS,SERU 11-05-2021 Albumin [Mass/Vol] 3.3 g/dL below low threshold 3.4 - 5.0 [facility] Work Phone: Protein [Mass/Vol] 6.2 g/dL below low threshold 6.4 - 8.2 [facility] Work Phone: PROTEIN ELECTROPHORESIS,SERUM ABNORMAL [facility] Work Phone: Comment on above: Hypoalbuminemia. PROTEIN ELECTROPHORESIS,SERUM 0.9 g/dL 0.4 - 1.1 -[facility] Work Phone: PROTEIN ELECTROPHORESIS,SERUM 0.3 g/dL 0.2 - 0.6 [facility] Work Phone: Path Review SPEon 11-05-2021 Path Review OTTONIEL CHRISTOPHER [facility] Work Phone: Comment on above: By her/his signature above, the Pathologist listed as making the final interpretation certifies that she/he has personally reviewed this case. Vitamin B12, Serumon 022 Cobalamin (Vitamin B12) [Mass/Vol] 1040 pg/mL above high threshold 211 - 911 [facility] Work Phone: Office Visit (Internal Medic ine)on [...] Pyuria; MARGARET = N; Verified Transmission to [id number]; Last Updated By: Linda Wolf; [...] black stool Review of Systems as per mechoopda Active Problems Problems Abnormal serum creatinine level [...] by Problem List Migration; 2012-12-16; Moved to [facility] Dec 27 2012 9:07PM History of [...] included)... Normal [employer] Complete Blood Count + Difftrudy ramires 09-30-2021 Basophils/100 WBC (Bld) 0.7 % 0.0 - 2.0 M [facility] Work Phone: Erythrocyte distribution width (RBC) [Ratio] 17.5 % above high threshold See Below [facility] Work Phone: Comment on above: Reference Range: 11. 5 - 14.5 Hematocrit (Bld) [Volume fraction] 31.6 % below low threshold See Below [facility] Work Phone: Comment on above: Reference Range: 36. 0 - 46.0 Hemoglobin (Bld) [Mass/Vol] 9.4 g/dL below low threshold See Below [facility] Work Phone: Comment on above: Reference Range: 12. 0 - 16.0 Lymphocytes/100 WBC (Bld) 32.7 % See Below [facility] Work Phone: Comment on above: Reference Range: 13. 0 - 44.0 MCHC (RBC) [Mass/Vol] 29.7 g/dL below low threshold See Below [facility] Work Phone: Comment on above: Reference Range: 32. 0 - 36.0 MCV (RBC) [Entitic vol] 82 fL 80 - 100 M [facility] Work Phone: Monocytes/100 WBC (Bld) 10.0 % 2.0 - 10.0 M [facility] Work Phone: Neutrophils/100 WBC (Bld) 53.5 % See Below [facility] Work Phone: Comment on above: Reference Range: 40. 0 - 80.0 Platelets (Bld) [#/Vol] 233 10*3/uL 150 - 450 [facility] Work Phone: RBC (Bld) [#/Vol] 3.87 {x10E12/L} below low threshold See Below [facility] Work Phone: Comment on above: Reference Range: 4.0 0 - 5.20 WBC (Bld) [#/Vol] 7.4 10*3/uL 4.4 - 11.3 [facility] Work Phone: Complete Blood Count + Differential 0.05 {x10E9/L} See Below [facility] Work Phone: Comment on above: Reference Range: 0.0 0 - 0.10 Complete Blood Count + Differential 0.21 {x10E9/L} See Below [facility] Work Phone: Comment on above: Reference Range: 0.0 0 - 0.40 Complete Blood Count + Differential 0.74 {x10E9/L} See Below [facility] Work Phone: Comment on above: Reference Range: 0.0 5 - 0.80 Complete Blood Count + Differential 2.42 {x10E9/L} See Below [facility] Work Phone: Comment on above: Reference Range: 0.8 0 - 3.00 Complete Blood Count + Differential 3.95 {x10E9/L} See Below [facility] Work Phone: Comment on above: Reference Range: 1.6 0 - 5.50 Complete Blood Count + Differential 2.8 % 0.0 - 6.0 [facility] Work Phone: Complete Blood Count + Differential 0.3 % 0.0 - 0.9 [facility] Work Phone: Comment on above: Immature Granulocyte Count (IG) includes promyelocytes, myelocytes and metamyelocytes but does not include bands. Percent differential counts (%) should be interpreted in the context of the absolute cell counts (cells/L). Complete Blood Count + Differential 0.0 {/100_WBC} 0.0-0.0 [facility] Work Phone: Laboratory - Chemistry and C hemistry - challengeon 09-30-2021 Albumin BCP dye [Mass/Vol] 3.8 g/dL 3.4 - 5.0 [facility] Work Phone: ALP [Catalytic activity/Vol] 60 U/L 33 - 136 [facility] Work Phone: ALT With P-5'-P [Catalytic activity/Vol] 7 U/L 7 - 45 [facility] Work Phone: Comment on above: Patients treated wit h Sulfasalazine may generate falsely decreased results for ALT. Anion gap [Moles/Vol] 16 mmol/L 10 - 20 [facility] Work Phone: AST With P-5'-P [Catalytic activity/Vol] 9 U/L 9 - 39 [facility] Work Phone: Bilirubin [Mass/Vol] 0.5 mg/dL 0.0 - 1.2 [facility] Work Phone: Calcium [Mass/Vol] 9.2 mg/dL 8.6 - 10.6 [facility] Work Phone: Chloride [Moles/Vol] 104 mmol/L 98 - 107 [facility] Work Phone: CO2 [Moles/Vol] 24 mmol/L 21 - 32 [facility] Work Phone: Creatinine [Mass/Vol] 2.02 mg/dL above high threshold See Below [facility] Work Phone: Comment on above: Reference Range: 0.5 0 - 1.05 Glucose [Mass/Vol] 136 mg/dL above high threshold 74 - 99 [facility] Work Phone: Natriuretic peptide B (Bld) [Mass/Vol] 226 pg/mL above high threshold 0 - 99 [facility] Work Phone: Comment on above: . <100 pg/mL - Heart failure [id number] pg/mL - Intermediate probability of acute heart. [...] Potassium [Moles/Vol] 4.3 mmol/L 3.5 - 5.3 [facility] Work Phone: Protein [Mass/Vol] 6.4 g/dL 6.4 - 8.2 [facility] Work Phone: Sodium [Moles/Vol] 140 mmol/L 136 - 145 [facility] Work Phone: TSH Qn 1.90 m[IU]/L See Below [facility] Work Phone: Comment on above: Reference Range: 0.4 4 - 3.98 TSH testing is performed using different testing methodology at [facility] than at other [facility]. Direct result comparisons should only be made within the same method. Urea nitrogen [Mass/Vol] 38 mg/dL above high threshold 6 - 23 [facility] Work Phone: No Panel Informationon 09-30 24 {mL/min/1.73m2} Abnormal >90 [facility] Work Phone: Comment on above: CALCULATIONS OF STEVO MATED GFR ARE PERFORMED USING THE 2020 CKD-EPI STUDY REFIT EQUATION WITHOUT THE RACE VARIABLE FOR THE IDMS-TRACEABLE CREATININE METHODS.https://jasn.asnjournals.org/content// ASN.4863525389 Urinalysison 09-30-2021 Color (U) YELLOW See Below [facility] Work Phone: Comment on above: Reference Range: STR AW,YELLOW Glucose Ql (U) Negative NEGATIVE -[facility] Work Phone: Ketones Ql (U) Negative NEGATIVE -[facility] Work Phone: Leukocyte esterase Test strip Ql (U) LARGE (3+) Abnormal NEGATIVE [facility] Work Phone: pH (U) 5.0 [pH] 5.0 - 8.0 [facility] Work Phone: Protein (U) [Mass/Vol] Negative NEGATIVE [facility] Work Phone: RBC (U) [#/Vol] Negative NEGATIVE [facility] Work Phone: Specific gravity (U) [Rel density] 1.018 1 See Below [facility] Work Phone: Comment on above: Reference Range: 1.0 05 - 1.035 Urinalysis Negative NEGATIVE [facility] Work Phone: Urinalysis <2.0 0.0 - 1.9 [facility] Work Phone: Urinalysis HAZY CLEAR [facility] Work Phone: Urinalysis, Microscopicon Hyaline casts LM Ql (Urine sed) OCC Abnormal -[facility] Work Phone: Urinalysis, Microscopic 1+ M [facility] Work Phone: Urinalysis, Microscopic 4+ Abnormal M [facility] Work Phone: Urinalysis, Microscopic <1 [facility] Work Phone: Urinalysis, Microscopic 2 {/HPF} M [facility] Work Phone: Urinalysis, Microscopic 7 {/HPF} Abnormal 0-5 M [facility] Work Phone: Urinalysis, Microscopic FEW M [facility] Work Phone: Urinalysis, Microscopic 154 {/HPF} Abnormal 0-5 M [facility] Work Phone: Office Visit (Internal Medic ine)on 09-22-2021 Follow-up visit Diagnoses/Problems Assessed Lower extremity edema (782.3) (R60.0) Orders Lower extremity edema Brain Natriuretic Peptide BNP; Status:Active; Requested for:29Sep2021; Perform:Lab Services - Lab To Draw (Blood [...] Test); Due:21Dec2021;Order ed; For:Lower extremity edema; Ordered By:Eiatn Price; Urinalysis; Status:Active; Requested for:[id number]; Perform:Lab Services - Lab To Draw (Non-Blood [...] of diab (more content not included)... Normal [employer] Laboratory - Chemistry and C hemistry - challengeon 09-14-2021 Anion gap [Moles/Vol] 15 mmol/L 10 - 20 [facility] Work Phone: Calcium [Mass/Vol] 9.3 mg/dL 8.6 - 10.6 [facility] Work Phone: [phone] Chloride [Moles/Vol] 107 mmol/L 98 - 107 [facility] Work Phone: [phone] CO2 [Moles/Vol] 25 mmol/L 21 - 32 [facility] Work Phone: Creatinine [Mass/Vol] 1.57 mg/dL above high threshold See Below [facility] Work Phone: [phone] Comment on above: Reference Range: 0.5 0 - 1.05 Glucose [Mass/Vol] 119 mg/dL above high threshold 74 - 99 [facility] Work Phone: [phone] Potassium [Moles/Vol] 5.1 mmol/L 3.5 - 5.3 [facility] Work Phone: [phone] Sodium [Moles/Vol] 142 mmol/L 136 - 145 [facility] Work Phone: Urea nitrogen [Mass/Vol] 31 mg/dL above high threshold 6 - 23 -[facility] Work Phone: No Panel Informationon 09-14 32 {mL/min/1.73m2} Abnormal >90 [facility] Work Phone: Comment on above: CALCULATIONS OF STEVO MATED GFR ARE PERFORMED USING THE 2020 CKD-EPI STUDY REFIT EQUATION WITHOUT THE RACE VARIABLE FOR THE IDMS-TRACEABLE CREATININE METHODS.https://jasn.asnjournals.org/content/early/ ASN.3936895076 Office Visit (Internal Medic ine)on 09-07-2021 Follow-up [...] to pt Review of Systems as per mechoopda Active Problems Problems Abnormal serum creatinine level [...] by Problem List Migration; 2012-12-16; Moved to [facility] Dec 27 2012 9:07PM History of [...] Normal [facility] Medicare Annual Wellness Vis gopi 08-02-2021 Medicare Annual Wellness Visit *Chief Complaint [...] in one house air conditioner out in [place] crying a lot leg and foot pain r > left no trauma a little swelling f/u dm, hyperlipidemia, dep, htn Review of Systems see mechoopda *Active Problems Abnormal serum creatinine level (790.99) [...] by Problem List Migration; 2012-12-16; Moved to [facility] Dec 27 2012 9:07PM History of [...] by Problem List Migration; 2012-12-16; Moved to [facility] Dec 27 2012 9:07PM History of [...] NameInstruction ALPRAZo (more content not included)... [facility] VITALSon 08-02-2021 Adult depression screening assessment No [facility] Work Phone: Fall risk assessment a) No falls within the last year [facility] Work Phone: Tobacco use status CPHS b) No M [facility] Work Phone: Radiologyon 08-02-2021 US.doppler Upper extremity vein - bilateral Normal [facility] Work Phone: XR Foot 3 Views Please click on the link to view the study images Normal [facility] Work Phone: XR Foot 3 Views Normal [facility] Work Phone: XR Tibia and Fibula - left 2 Views Please click on the link to view the study images Normal [facility] Work Phone: XR Tibia and Fibula - left 2 Views Normal [facility] Work Phone: Hemoglobin A1Con 08-01-2021 Glucose [Mass/Vol] 151 mg/dL [facility] Work Phone: HbA1c (Bld) [Mass fraction] 6.9 % Abnormal [facility] Work Phone: Comment on above: Diagnosis of Diabete s-Adults Non-Diabetic: < or = 5.6% Increased risk for developing diabetes: 5.7-6.4% Diagnostic of diabetes: > or = 6.5%. Monitoring of Diabetes Age (y) Therapeutic Goal (%) Adults: >18 <7.0 Pediatrics: 13-18 <7.5 7-12 <8.0 0- 6 7.5-8.5 [employer]. Diabetes Care 33(S1), Feb 2009. Laboratory - Chemistry and C hemistry - challengeon 08-01-2021 Albumin BCP dye [Mass/Vol] 3.8 g/dL 3.4 - 5.0 [facility] Work Phone: ALP [Catalytic activity/Vol] 63 U/L 33 - 136 [facility] Work Phone: ALT With P-5'-P [Catalytic activity/Vol] 5 U/L below low threshold 7 - 45 [facility] Work Phone: Comment on above: Patients treated wit h Sulfasalazine may generate falsely decreased results for ALT. Anion gap [Moles/Vol] 15 mmol/L 10 - 20 [facility] Work Phone: AST With P-5'-P [Catalytic activity/Vol] 10 U/L 9 - 39 [facility] Work Phone: Bilirubin [Mass/Vol] 0.8 mg/dL 0.0 - 1.2 [facility] Work Phone: Calcium [Mass/Vol] 9.6 mg/dL 8.6 - 10.6 [facility] Work Phone: Chloride [Moles/Vol] 103 mmol/L 98 - 107 [facility] Work Phone: CO2 [Moles/Vol] 27 mmol/L 21 - 32 [facility] Work Phone: Creatinine [Mass/Vol] 1.57 mg/dL above high threshold See Below [facility] Work Phone: Comment on above: Reference Range: 0.5 0 - 1.05 Glucose [Mass/Vol] 128 mg/dL above high threshold 74 - 99 [facility] Work Phone: Potassium [Moles/Vol] 4.2 mmol/L 3.5 - 5.3 [facility] Work Phone: Protein [Mass/Vol] 6.5 g/dL 6.4 - 8.2 [facility] Work Phone: Sodium [Moles/Vol] 141 mmol/L 136 - 145 [facility] Work Phone: Urea nitrogen [Mass/Vol] 19 mg/dL 6 - 23 [facility] Work Phone: Lipid Panelon 08-01-2021 Cholesterol [Mass/Vol] 94 mg/dL 0 - 199 [facility] Work Phone: Comment on above: . AGE [...] Cholesterol in HDL [Mass/Vol] 34.1 mg/dL Abnormal [facility] Work Phone: Comment on above: . AGE VERY LOW LOW N ORMAL HIGH 0-19 Y < 35 < 40 40-45 ---- 20-24 Y ---- < 40 >45 ---- >24 Y ---- < 40 40-60 >60. Cholesterol in LDL [Mass/Vol] 33 mg/dL 0 - 99 [facility] Work Phone: Comment on above: . NEAR BORD AGE LUDIN RABLE OPTIMAL HIGH HIGH VERY HIGH 0-19 Y 0 - 109 --- 110-129 >/= 130 ---- 20-24 Y 0 - 119 --- 120-159 >/= 160 ---- >24 Y 0 - 99 100-129 130-159 160-189 >/=190. Cholesterol.total/Mary sterol in HDL [Mass ratio] 2.8 {ratio} [facility] Work Phone: Comment on above: REF VALUESDESIRABLE < 3.4HIGH RISK > 5.0 Triglyceride [Mass/Vol] 133 mg/dL 0 - 149 [facility] Work Phone: Comment on above: . AGE [...] Lipid Panel 27 mg/dL 0 - 40 [facility] Work Phone: No Panel Informationon 08-01 32 {mL/min/1.73m2} Abnormal >90 [facility] Work Phone: Comment on above: CALCULATIONS OF STEVO MATED GFR ARE PERFORMED USING THE 2020 CKD-EPI STUDY REFIT EQUATION WITHOUT THE RACE VARIABLE FOR THE IDMS-TRACEABLE CREATININE METHODS.https://jasn.asnjournals.org/content/early/ ASN.2365382759 Office Visit (Internal Medic ine)on 12-17-2020 Follow-up [...] Review of Systems no new problems see mechoopda Active Problems Problems Abnormal serum creatinine level [...] Suppressed Dec 27 2012 9:07PM History of Obstructive [...] DIRECTED. Vitals Vital Signs Recorded: 17Dec2020 12:25PM Tyuikivxzbq80.5 F Heart Rate60 Joaccxyk999 Ihbxozddy16 Height5 ft Rhyrsm086 lb BMI Jpjgrskuur39.89 kg/m2 BSA Calculated1.84 Physical Exam gen nad, affect wnl heent eomfg, face symmetric alert no psychomotor r/a well dressed good insight Results/Data Reviewed labs, ct Signatures Electronically signed by : Eitan Price MD; Jan 04 2021 5:09PM EST (Author) Normal [facility] CT Abdomen without Contrasto n 12-14-2020 CT Abdomen WO contrast Normal [facility] Work Phone: Hemoglobin A1Con 11-23-2020 Glucose [Mass/Vol] 160 mg/dL [facility] Work Phone: HbA1c (Bld) [Mass fraction] 7.2 % Abnormal [facility] Work Phone: Comment on above: Diagnosis of Diabete s-Adults Non-Diabetic: < or = 5.6% Increased risk for developing diabetes: 5.7-6.4% Diagnostic of diabetes: > or = 6.5%. Monitoring of Diabetes Age (y) Therapeutic Goal (%) Adults: >18 <7.0 Pediatrics: 13-18 <7.5 7-12 <8.0 0- 6 7.5-8.5 [employer]. Diabetes Care 33(S1), Feb 2009. Laboratory - Chemistry and C hemistry - challengeon 11-23-2020 Albumin BCP dye [Mass/Vol] 3.6 g/dL 3.4 - 5.0 [facility] Work Phone: Albumin Ql (U) 8.8 mg/L See Below [facility] Work Phone: Comment on above: Reference Range: Not Established Albumin/Creatinine DL <= 20 mg/L (U) [Mass ratio] 7.5 {ug/mg_crt} 0.0 - 30.0 [facility] Work Phone: ALP [Catalytic activity/Vol] 70 U/L 33 - 136 [facility] Work Phone: ALT With P-5'-P [Catalytic activity/Vol] 14 U/L 7 - 45 [facility] Work Phone: Comment on above: Patients treated wit h Sulfasalazine may generate falsely decreased results for ALT. Anion gap [Moles/Vol] 12 mmol/L 10 - 20 [facility] Work Phone: AST With P-5'-P [Catalytic activity/Vol] 12 U/L 9 - 39 [facility] Work Phone: Bilirubin [Mass/Vol] 0.6 mg/dL 0.0 - 1.2 [facility] Work Phone: Calcium [Mass/Vol] 9.2 mg/dL 8.6 - 10.6 [facility] Work Phone: Chloride [Moles/Vol] 108 mmol/L above high threshold 98 - 107 [facility] Work Phone: CO2 [Moles/Vol] 27 mmol/L 21 - 32 [facility] Work Phone: Creatinine (U) [Mass/Vol] 117.0 mg/dL See Below [facility] Work Phone: Comment on above: Reference Range: 20. 0 - 320.0 Creatinine [Mass/Vol] 1.46 mg/dL above high threshold See Below [facility] Work Phone: Comment on above: Reference Range: 0.5 0 - 1.05 Glucose [Mass/Vol] 122 mg/dL above high threshold 74 - 99 [facility] Work Phone: Potassium [Moles/Vol] 5.0 mmol/L 3.5 - 5.3 [facility] Work Phone: Protein [Mass/Vol] 6.1 g/dL below low threshold 6.4 - 8.2 [facility] Work Phone: Sodium [Moles/Vol] 142 mmol/L 136 - 145 [facility] Work Phone: Urea nitrogen [Mass/Vol] 18 mg/dL 6 - 23 [facility] Work Phone: Lipid Panelon 11-23-2020 Cholesterol [Mass/Vol] 101 mg/dL 0 - 199 [facility] Work Phone: Comment on above: . AGE [...] dosing. Cholesterol in HDL [Mass/Vol] 40.7 mg/dL [facility] Work Phone: Comment on above: . AGE VERY LOW LOW N ORMAL HIGH 0-19 Y < 35 < 40 40-45 ---- 20-24 Y ---- < 40 >45 ---- >24 Y ---- < 40 40-60 >60. Cholesterol in LDL [Mass/Vol] 31 mg/dL 0 - 99 [facility] Work Phone: Comment on above: . NEAR BORD AGE LUDIN RABLE OPTIMAL HIGH HIGH VERY HIGH 0-19 Y 0 - 109 --- 110-129 >/= 130 ---- 20-24 Y 0 - 119 --- 120-159 >/= 160 ---- >24 Y 0 - 99 100-129 130-159 160-189 >/=190. Cholesterol.total/Mary sterol in HDL [Mass ratio] 2.5 {ratio} [facility] Work Phone: Comment on above: REF VALUESDESIRABLE < 3.4HIGH RISK > 5.0 Triglyceride [Mass/Vol] 145 mg/dL 0 - 149 [facility] Work Phone: Comment on above: . AGE [...] Lipid Panel 29 mg/dL 0 - 40 [facility] Work Phone: No Panel Informationon 11-23 41 {mL/min/1.73m2} Abnormal >60 [facility] Work Phone: Comment on above: CALCULATIONS OF STEVO MATED GFR ARE PERFORMED USING THE MDRD STUDY EQUATION FOR THE IDMS-TRACEABLE CREATININE METHODS. CLIN CHEM 2007;53:766-72 34 {mL/min/1.73m2} Abnormal >60 [facility] Work Phone: Tobacco Screening.on 021 Fall risk assessment a) No falls within the last year [facility] Work Phone: Tobacco use status CPHS b) No M [facility] Work Phone: Hemoglobin A1Con 06-22-2020 Glucose [Mass/Vol] 146 mg/dL [facility] Work Phone: HbA1c (Bld) [Mass fraction] 6.7 % [facility] Work Phone: Comment on above: Diagnosis of Diabete s-Adults Non-Diabetic: < or = 5.6% Increased risk for developing diabetes: 5.7-6.4% Diagnostic of diabetes: > or = 6.5%. Monitoring of Diabetes Age (y) Therapeutic Goal (%) Adults: >18 <7.0 Pediatrics: 13-18 <7.5 7-12 <8.0 0- 6 7.5-8.5 [employer]. Diabetes Care 33(S1), Feb 2009. Laboratory - Chemistry and C hemistry - challengeon 06-22-2020 Albumin BCP dye [Mass/Vol] 3.7 g/dL 3.4 - 5.0 [facility] Work Phone: ALP [Catalytic activity/Vol] 76 U/L 33 - 136 [facility] Work Phone: ALT With P-5'-P [Catalytic activity/Vol] 9 U/L 7 - 45 [facility] Work Phone: Comment on above: Patients treated wit h Sulfasalazine may generate falsely decreased results for ALT. Anion gap [Moles/Vol] 12 mmol/L 10 - 20 [facility] Work Phone: AST With P-5'-P [Catalytic activity/Vol] 12 U/L 9 - 39 [facility] Work Phone: Bilirubin [Mass/Vol] 0.7 mg/dL 0.0 - 1.2 [facility] Work Phone: Calcium [Mass/Vol] 9.3 mg/dL 8.6 - 10.6 [facility] Work Phone: Chloride [Moles/Vol] 107 mmol/L 98 - 107 [facility] Work Phone: CO2 [Moles/Vol] 26 mmol/L 21 - 32 [facility] Work Phone: Creatinine [Mass/Vol] 1.20 mg/dL above high threshold See Below [facility] Work Phone: Comment on above: Reference Range: 0.5 0 - 1.05 Glucose [Mass/Vol] 124 mg/dL above high threshold 74 - 99 [facility] Work Phone: Potassium [Moles/Vol] 4.7 mmol/L 3.5 - 5.3 [facility] Work Phone: Protein [Mass/Vol] 6.5 g/dL 6.4 - 8.2 [facility] Work Phone: Sodium [Moles/Vol] 140 mmol/L 136 - 145 [facility] Work Phone: TSH Qn 2.23 m[IU]/L See Below [facility] Work Phone: Comment on above: Reference Range: 0.4 4 - 3.98 TSH testing is performed using different testing methodology at [facility] than at [facility]. Direct result comparisons should only be made within the same method. Urea nitrogen [Mass/Vol] 18 mg/dL 6 - 23 [facility] Work Phone: Lipid Panelon 06-22-2020 Cholesterol [Mass/Vol] 93 mg/dL 0 - 199 [facility] Work Phone: Comment on above: . AGE [...] guidelines reference: NCEP ATPIII Guidelines, BARBY 2001, 258:5316-97. Venipuncture immediately after or during the administration of Metamizole may lead to falsely low results. Testing should be performed immediately prior to Metamizole dosing. Cholesterol in HDL [Mass/Vol] 40.3 mg/dL [facility] Work Phone: Comment on above: . AGE VERY LOW LOW N ORMAL HIGH 0-19 Y < 35 < 40 40-45 ---- 20-24 Y ---- < 40 >45 ---- >24 Y ---- < 40 40-60 >60. Cholesterol in LDL [Mass/Vol] 31 mg/dL 0 - 99 [facility] Work Phone: Comment on above: . NEAR BORD AGE LUDIN RABLE OPTIMAL HIGH HIGH VERY HIGH 0-19 Y 0 - 109 --- 110-129 >/= 130 ---- 20-24 Y 0 - 119 --- 120-159 >/= 160 ---- >24 Y 0 - 99 100-129 130-159 160-189 >/=190. Cholesterol.total/Mary sterol in HDL [Mass ratio] 2.3 {ratio} [facility] Work Phone: Comment on above: REF VALUESDESIRABLE < 3.4HIGH RISK > 5.0 Triglyceride [Mass/Vol] 108 mg/dL 0 - 149 [facility] Work Phone: Comment on above: . AGE [...] Lipid Panel 22 mg/dL 0 - 40 [facility] Work Phone: No Panel Informationon 06-22 52 {mL/min/1.73m2} Abnormal >60 [facility] Work Phone: Comment on above: CALCULATIONS OF STEVO MATED GFR ARE PERFORMED USING THE MDRD STUDY EQUATION FOR THE IDMS-TRACEABLE CREATININE METHODS. CLIN CHEM 2007;53:766-72 43 {mL/min/1.73m2} Abnormal >60 [facility] Work Phone: Otheron 07-29-[address] [facility] Blood Gas Arterialon 019 FIO2 21 % Normal [facility] Comment on above: Performed By: #### A BG #### [facility] [address] [place] [address] Base Excess 1.7 mmol/L Normal -3.0-3.0 [facility] Comment on above: Performed By: #### A BG #### [place] [id number] HCO3 (Bld) [Moles/Vol] 24.2 mmol/L Normal 21.0-28.0 [facility] Comment on above: Performed By: #### A BG #### [facility] [address] [place] [address] O2% Sat Arterial 98.2 % Normal 96.0-100.0 [facility] Comment on above: Performed By: #### A BG #### [facility] [address] [place] [address] PCO2 Arterial 32.6 mm Hg Low 35.0-45.0 [facility] Comment on above: Performed By: #### A BG #### [facility] [address] [place] [address] pH Arterial 7.484 High 7.350-7.450 [facility] Comment on above: Performed By: #### A BG #### [facility] [address] [place] [address] PO2 Arterial 102.0 mm Hg Normal 83.0-108.0 [facility] Comment on above: Performed By: #### A BG #### [facility] [address] [place] [address] Otheron 07-02-2018 XR Chest 2 views Please click on the link to view the study images Normal [facility] Work Phone: Complete Blood Count + Diffe brendaon 06-26-2018 Basophils (Bld) [#/Vol] 0.04 {x10E9/L} See Lidao w [facility] Work Phone: Comment on above: Reference Range: 0.0 0 - 0.10 Basophils/100 WBC (Bld) 0.5 % 0.0 - 2.0 M [facility] Work Phone: Eosinophils (Bld) [#/Vol] 0.17 {x10E9/L} See Below [facility] Work Phone: Comment on above: Reference Range: 0.0 0 - 0.40 Eosinophils/100 WBC (Bld) 2.2 % 0.0 - 6.0 [facility] Work Phone: Erythrocyte distribution width (RBC) [Ratio] 15.1 % above high threshold See Below [facility] Work Phone: Comment on above: Reference Range: 11. 5 - 14.5 Hematocrit (Bld) [Volume fraction] 39.6 % See Below [facility] Work Phone: Comment on above: Reference Range: 36. 0 - 46.0 Hemoglobin (Bld) [Mass/Vol] 12.0 g/dL See Below [facility] Work Phone: Comment on above: Reference Range: 12. 0 - 16.0 Lymphocytes (Bld) [#/Vol] 1.71 {x10E9/L} See Below [facility] Work Phone: Comment on above: Reference Range: 0.8 0 - 3.00 Lymphocytes/100 WBC (Bld) 22.5 % See Below [facility] Work Phone: Comment on above: Reference Range: 13. 0 - 44.0 MCHC (RBC) [Mass/Vol] 30.3 g/dL below low threshold See Below [facility] Work Phone: Comment on above: Reference Range: 32. 0 - 36.0 MCV (RBC) [Entitic vol] 89 fL 80 - 100 [facility] Work Phone: Monocytes (Bld) [#/Vol] 0.78 {x10E9/L} See Belo w [facility] Work Phone: Comment on above: Reference Range: 0.0 5 - 0.80 Monocytes/100 WBC (Bld) 10.3 % 2.0 - 10.0 [facility] Work Phone: Neutrophils (Bld) [#/Vol] 4.87 {x10E9/L} See Below [facility] Work Phone: Comment on above: Reference Range: 1.6 0 - 5.50 Neutrophils/100 WBC (Bld) 64.1 % See Below [facility] Work Phone: Comment on above: Reference Range: 40. 0 - 80.0 Platelets (Bld) [#/Vol] 190 {x10E9/L} 150 - 450 [facility] Work Phone: RBC (Bld) [#/Vol] 4.45 {x10E12/L} See Below [facility] Work Phone: Comment on above: Reference Range: 4.0 0 - 5.20 WBC (Bld) [#/Vol] 7.6 {x10E9/L} 4.4 - 11.3 [facility] Work Phone: WBC (Bld) [#/Vol] 0.0 {/100_WBC} 0.0-0.0 [facility] Work Phone: Complete Blood Count + Differential 0.4 % 0.0 - 0.9 [facility] Work Phone: Comment on above: Percent differential counts (%) should be interpreted in the context of the absolute cell counts (cells/L). Hemoglobin A1Con 06-26-2018 HbA1c (Bld) [Mass fraction] 6.6 % [facility] Work Phone: Comment on above: Diagnosis of Diabete s-Adults Non-Diabetic: < or = 5.6% Increased risk for developing diabetes: 5.7-6.4% Diagnostic of diabetes: > or = 6.5%. Monitoring of Diabetes Age (y) Therapeutic Goal (%) Adults: >18 <7.0 Pediatrics: 13-18 <7.5 7-12 <8.0 0- 6 7.5-8.5 [employer]. Diabetes Care 33(S1), Feb 2009. HbA1c (Bld) [Mass fraction] 143 {MG/DL} [facility] Work Phone: Lipid Panelon 06-26-2018 Cholesterol [Mass/Vol] 98 mg/dL 0 - 199 [facility] Work Phone: Comment on above: . AGE [...] Cholesterol in HDL [Mass/Vol] 30.7 mg/dL Abnormal [facility] Work Phone: Comment on above: . AGE VERY LOW LOW N ORMAL HIGH 0-19 Y < 35 < 40 40-45 ---- 20-24 Y ---- < 40 >45 ---- >24 Y ---- < 40 40-60 >60. Cholesterol in LDL [Mass/Vol] 29 mg/dL 0 - 99 [facility] Work Phone: Comment on above: . NEAR BORD AGE LUDIN RABLE OPTIMAL HIGH HIGH VERY HIGH 0-19 Y 0 - 109 --- 110-129 >/= 130 ---- 20-24 Y 0 - 119 --- 120-159 >/= 160 ---- >24 Y 0 - 99 100-129 130-159 160-189 >/=190. Cholesterol.total/Mary sterol in HDL [Mass ratio] 3.2 {ratio} [facility] Work Phone: Comment on above: REF VALUESDESIRABLE < 3.4HIGH RISK > 5.0 Triglyceride [Mass/Vol] 193 mg/dL above hi gh threshold 0 - 149 [facility] Work Phone: Comment on above: . [...] Lipid Panel 39 mg/dL 0 - 40 [facility] Work Phone: Metabolic Panelon 06-26-2018 ALP [Catalytic activity/Vol] 61 U/L 33 - 136 [facility] Work Phone: Anion gap [Moles/Vol] 15 mmol/L 10 - 20 [facility] Work Phone: Bilirubin [Mass/Vol] 0.7 mg/dL 0.0 - 1.2 [facility] Work Phone: Calcium [Mass/Vol] 9.8 mg/dL 8.6 - 10.6 [facility] Work Phone: Chloride [Moles/Vol] 107 mmol/L 98 - 107 [facility] Work Phone: CO2 [Moles/Vol] 25 mmol/L 21 - 32 [facility] Work Phone: Creatinine [Mass/Vol] 1.25 mg/dL above high threshold See Below [facility] Work Phone: Comment on above: Reference Range: 0.5 0 - 1.05 Glucose [Mass/Vol] 128 mg/dL above high threshold 74 - 99 [facility] Work Phone: Potassium [Moles/Vol] 4.9 mmol/L 3.5 - 5.3 [facility] Work Phone: Protein [Mass/Vol] 6.6 g/dL 6.4 - 8.2 [facility] Work Phone: Sodium [Moles/Vol] 142 mmol/L 136 - 145 [facility] Work Phone: Urea nitrogen [Mass/Vol] 22 mg/dL 6 - 23 [facility] Work Phone: Otheron 06-26-2018 Albumin BCP dye [Mass/Vol] 3.6 g/dL 3.4 - 5.0 [facility] Work Phone: ALT With P-5'-P [Catalytic activity/Vol] 9 U/L 7 - 45 [facility] Work Phone: Comment on above: Patients treated wit h Sulfasalazine may generate falsely decreased results for ALT. AST With P-5'-P [Catalytic activity/Vol] 13 U/L 9 - 39 [facility] Work Phone: 50 {mL/min/1.73m2} Abnormal >60 [facility] Work Phone: Comment on above: CALCULATIONS OF STEVO MATED GFR ARE PERFORMED USING THE MDRD STUDY EQUATION FOR THE IDMS-TRACEABLE CREATININE METHODS. CLIN CHEM 2007;53:766-72 41 {mL/min/1.73m2} Abnormal >60 -[facility] Work Phone: Vitamin B12, Serumon 019 Cobalamin (Vitamin B12) [Mass/Vol] 1299 pg/mL above high threshold 211 - 911 [facility] Work Phone: Office Visiton 09-19-2016 Documentation of current medications (procedure) Done Invalid Interpretation Code [facility] Work Phone: [phone] Fall risk assessment No Invalid Interpretation Code [facility] Work Phone: [phone] Lab Report: CBC-Complete Blo od Cnt No Diffon 08-31-2016 Erythrocytes (RBC) 4.35 10*6/uL Invalid Interpretation Code 4.2-5.4 [facility] Work Phone: [phone] Hematocrit (HCT) 38.0 % Invalid Interpretation Code 37-47 [facility] Work Phone: [phone] Hemoglobin (HGB) 12.4 g/dL Invalid Interpretation Code 12.0-15.0 [facility] Work Phone: [phone] MCH 28.5 pg Invalid Interpretation Code 27.0-32.0 [facility] Work Phone: [phone] MCHC 32.6 G/GL Invalid Interpretation Code 32-36 [facility] Work Phone: [phone] MCV 87.4 fL Invalid Interpretation Code 81-99 [facility] Work Phone: [phone] Platelets 167 10*3/mm3 Invalid Interpretation Code 150-450 [facility] Work Phone: [phone] PMV by Baylee 12.3 fL High 6.2-12.0 [facility] Work Phone: [phone] RDW-CA 14.5 % Invalid Interpretation Code 11.6-14.6 [facility] Work Phone: [phone] red blood cell distribution width, size density 46.0 fL High 35.1-43.9 [facility] Work Phone: [phone] WBC (Leukocytes) 6.5 10*3/uL Invalid Interpretation Code 4.4-11.0 [facility] Work Phone: [phone] Lab Report: Lipid Profileon 08-31-2016 Cholesterol 95 mg/dL Invalid Interpretation Code 200 [facility] Work Phone: [phone] HDL Cholesterol 38 mg/dL Low [facility] Work Phone: [phone] LDL Cholesterol 33 mg/dL Invalid Interpretation Code 0-130 [facility] Work Phone: [phone] Triglyceride 119 mg/dL Invalid Interpretation Code [facility] Phone: [phone] very low density lipoproteins 24 mg/dL Invalid Interpretation Code 5-40 [facility] Work Phone: [phone] Lab Report: Liver Profileon 08-31-2016 Alanine aminotransferase (ALT) 18 U/L Invalid Interpretation Code 12-78 [facility] Work Phone: [phone] Albumin 3.1 g/dL Low 3.4-5.0 [facility] Work Phone: [phone] Alkaline phosphatase (ALP) 75 U/L Invalid Interpretation Code 45-117 [facility] Phone: [phone] Aspartate aminotransferase (AST) 13 U/L Low 15-37 [facility] Phone: [phone] Bilirubin (direct) 0.16 mg/dL Invalid Interpretation Code 0.00-0.30 [facility] Work Phone: [phone] Bilirubin (total) 0.50 mg/dL Invalid Interpretation Code 0.20-1.00 [place] Phone: [phone] Globulin 3.8 g/dL High 2.3-3.5 [facility] Work Phone: [phone] Protein 6.9 g/dL Invalid Interpretation Code 6.4-8.2 [facility] Work Phone: [phone] Office Visiton 07-11-2016 Dietary management education, guidance, and counseling (procedure) yes Invalid Interpretation Code [facility] Work Phone: [phone] Documentation of current medications (procedure) Done Invalid Interpretation Code [facility] Work Phone: [phone] Tobacco use CPHS Never smoker Invalid Interpretation Code [facility] Work Phone: [phone] Clinical Lists Update: Prelo quality assurance advisor 06-29-2016 Anion gap 7 mmol/L Invalid Interpretation Code [facility] Work Phone: [phone] Anion gap [Moles/Vol] 7 mmol/L [facility] Work Phone: [phone] BUN/Creatinine Ratio 15.3 mg/mg Invalid Interpretation Code [facility] Work Phone: [phone] Calcium 8.6 mg/dL Invalid Interpretation Code [facility] Work Phone: [phone] Chloride 105 mmol/L Invalid Interpretation Code [facility] Work Phone: [phone] CO2 29 mmol/L Invalid Interpretation Code [facility] Work Phone: [phone] CO2 (BldV) [Partial pressure] 29 mmol/L [facility] Work Phone: [phone] Creatinine 0.92 mg/dL Invalid Interpretation Code [facility] Work Phone: [phone] Glucose 138 mg/dL Invalid Interpretation Code [facility] Work Phone: [phone] Glucose [Mass/Vol] 138 mg/dL [facility] Work Phone: [phone] Potassium 4.1 mmol/L Invalid Interpretation Code [facility] Work Phone: [phone] Sodium 141 mmol/L Invalid Interpretation Code [facility] Work Phone: [phone] Urea nitrogen 14 mg/dL Invalid Interpretation Code [facility] Work Phone: [phone] Clinical Lists Update: 06-28-2016 Hematocrit (Bld) [Volume fraction] 28 % Low [facility] Work Phone: [phone] Hematocrit (HCT) 28 % Low [facility] Work Phone: [phone] Hemoglobin (HGB) 9.1 g/dL Low [facility] Work Phone: [phone] Platelets 143 10*3/mm3 Low [facility] Work Phone: [phone] Platelets (Bld) [#/Vol] 143 10*3/mm3 Low [facility] Work Phone: [phone] Clinical Lists Update: 06-23-2016 Cholesterol 94 mg/dL Invalid Interpretation Code [facility] Work Phone: [phone] HDL Cholesterol 34 mg/dL Invalid Interpretation Code [facility] Work Phone: [phone] LDL Cholesterol 30 mg/dL Invalid Interpretation Code [facility] Work Phone: [phone] Left ventricular Ejection fraction 75 % Invalid Interpretation Code [facility] Work Phone: [phone] Triglyceride 151 mg/dL Invalid Interpretation Code [facility] Work Phone: [phone] Otheron 07-14-2010 CONVERTED CLINICAL HISTORY OPERATIVE PROCEDURE: Colon CLINICAL INFORMATION: H/O colon ca, polyps, inflamm of small bowel [facility] CONVERTED ELECTRONIC SIGNATURE GHADA HOSKINS M.D., PATHOLOGIST (Electronic signature on file) Final Signed Out: 07/14/2010 16:[address] [facility] CONVERTED FINAL DIAGNOSIS FINAL DIAGNOSIS: A) [...] (B) COLON BX, TRANS. (C) COLON BIOPSY [facility] CONVERTED GROSS DESCRIPTION GROSS DESCRIPTION: Sigmoid [...] totally submitted in cassette C x 3. SMS:nyu langone [facility] MICROSCOPIC DESCRIPTION: Slides reviewed. AP/lrs [facility] CONVERTED ORDERING PROVIDER Ordering Provider[facility] 11-12-2008 CONVERTED CLINICAL HISTORY OPERATIVE PROCEDURE: Colonoscopy CLINICAL INFORMATION: H/O ca colon, inflamm in small bowel at anastomosis [facility] CONVERTED ELECTRONIC SIGNATURE GHADA HOSKINS M.D., PATHOLOGIST (Electronic signature on file) Final Signed Out: 11/12/2008 13:[address] [facility] CONVERTED FINAL DIAGNOSIS FINAL DIAGNOSIS: SMALL BOWEL AT ANASTOMOSIS, BIOPSIES - FOCAL ACTIVE INFLAMMATION. NEGATIVE FOR MALIGNANCY. SEE COMMENT. COMMENT: The biopsies display active inflammation of surface epithelium and also glandular epithelium. The pattern of active inflammation is nonspecific. There is no evidence of necrosis. The focal mild changes are not accompanied by atypical features. SPECIMEN: COLON BIOPSY [facility] CONVERTED GROSS DESCRIPTION GROSS DESCRIPTION: Anastomosis bxs The specimen is received in a container labeled anastomosis biopsy. Received are portions of soft red-thomas tissue measuring 0.3 cm in aggregate diameter. The specimen is totally submitted in a single cassette x3. EDS/SMS/gpl MICROSCOPIC DESCRIPTION: Slides reviewed. AP/lrs [facility] CONVERTED ORDERING PROVIDER Ordering Provider: [facility] 10-24-2007 Cholesterol [Mass/Vol] GALLBLADDER, RESECTION - CHRONIC CHOLECYSTITIS. [facility] Otheron 10-24-2007 CONVERTED ORDERING PROVIDER Ordering Provider: MCKAY WANG [facility] Thyroidon 10-24-2007 TSH Rodneyn EITAN BUTLER M.D., PATHOLOGIST (Electronic signature on file) Final Signed Out: 10/24/2007 14:[address] [facility] Vital Signs Date Time Vital Sign Value Performing Clinician Facility 08-18-2024 16:05-0400 Body temperature 97.7 [degF] Dr. Eitan Price MD Work Phone: [facility] 08-18-2024 16:05-0400 Diastolic blood pressure 57 mm[Hg] Dr. Eitan Price MD Work Phone: [facility] 08-18-2024 16:05-0400 Heart rate 88 /min Dr. Eitan Price MD Work Phone: [facility] 08-18-2024 16:05-0400 Respiratory rate 16 /min Dr. Eitan Price MD Work Phone: [facility] 08-18-2024 16:05-0400 SaO2% (BldA) [Mass fraction] 98 % Dr. Eitan Price MD Work Phone: [facility] 08-18-2024 16:05-0400 Systolic blood pressure 150 mm[Hg] Dr. Eitan Price MD Work Phone: [facility] 08-18-2024 14:28-0400 Body height 149.[address] Eitan Price MD Work Phone: [facility] 08-18-2024 14:28-0400 Body mass index (BMI) [Ratio] 38 kg/m2 Dr. Eitan Price MD Work Phone: [facility] 08-18-2024 14:28-0400 Body weight 85.[address] Eitan Price MD Work Phone: [facility] 08-18-2024 00:37-0400 Body temperature 97.4 [degF] Dr. Eitan Price MD Work Phone: [facility] 08-18-2024 00:37-0400 Diastolic blood pressure 74 mm[Hg] Dr. Eitan Price MD Work Phone: [facility] 08-18-2024 00:37-0400 Heart rate 84 /min Dr. Eitan Price MD Work Phone: [facility] 08-18-2024 00:37-0400 Respiratory rate 14 /min Dr. Eitan Price MD Work Phone: [facility] 08-18-2024 00:37-0400 SaO2% (BldA) [Mass fraction] 100 % Dr. Eitan Price MD Work Phone: [facility] 08-18-2024 00:37-0400 Systolic blood pressure 137 mm[Hg] Dr. Eitan Price MD Work Phone: [facility] 08-17-2024 19:46-0400 Body height 149.[address] Eitan Price MD Work Phone: [facility] 08-17-2024 19:46-0400 Body mass index (BMI) [Ratio] 39.4 kg/m2 Dr. Eitan Price MD Work Phone: [facility] 08-17-2024 19:46-0400 Body weight 88.[address] Eitan Price MD Work Phone: [facility] 11-28-2023 09:59-0400 Body height 149.9 cm Eitan Price MD Work Phone: [facility] 11-28-2023 09:59-0400 Body mass index (BMI) [Ratio] 37.16 kg/m2 Eitan Price MD Work Phone: [facility] 11-28-2023 09:59-0400 Body weight 83.46 kg Eitan Price MD Work Phone: [facility] 11-28-2023 09:59-0400 Diastolic blood pressure 70 mm[Hg] Eitan Price MD Work Phone: [facility] 11-28-2023 09:59-0400 Heart rate 55 /min Eitan Price MD Work Phone: [facility] 11-28-2023 09:59-0400 SaO2% (BldA) [Mass fraction] 98 % Eitan Price MD Work Phone: [facility] 11-28-2023 09:59-0400 Systolic blood pressure 120 mm[Hg] Eitan Price MD Work Phone: [facility] 11-13-2023 09:18-0400 Body height 149.9 cm Mark Vazquez MD Work Phone: [facility] 11-13-2023 09:18-0400 Body mass index (BMI) [Ratio] 36.96 kg/m2 Mark Vazquez MD Work Phone: [facility] 11-13-2023 09:18-0400 Body weight 83.01 kg Mark Vazquez MD Work Phone: [facility] 11-13-2023 09:18-0400 Respiratory rate 16 /min Mark Vazquez MD Work Phone: [facility] 10-03-2023 15:01-0400 Body height 149.9 cm Eitan Price MD Work Phone: [facility] 10-03-2023 15:01-0400 Body mass index (BMI) [Ratio] 36.96 kg/m2 Eitan Price MD Work Phone: [facility] 10-03-2023 15:01-0400 Body weight 83.01 kg Eitan Price MD Work Phone: [facility] 10-03-2023 15:01-0400 Diastolic blood pressure 72 mm[Hg] Eitan Price MD Work Phone: [facility] 10-03-2023 15:01-0400 Heart rate 50 /min Eitan Price MD Work Phone: [facility] 10-03-2023 15:01-0400 SaO2% (BldA) [Mass fraction] 96 % Eitan Price MD Work Phone: [facility] 10-03-2023 15:01-0400 Systolic blood pressure 122 mm[Hg] Eitan Price MD Work Phone: [facility] 06-25-2023 14:04-0400 Body mass index (BMI) [Ratio] 36.56 kg/m2 Eitan Price MD Work Phone: [facility] 06-25-2023 14:04-0400 Body weight 82.1 kg Eitan Price MD Work Phone: [facility] 06-25-2023 14:04-0400 Diastolic blood pressure 66 mm[Hg] Eitan Price MD Work Phone: [facility] 06-25-2023 14:04-0400 Heart rate 49 /min Eitan Price MD Work Phone: [facility] 06-25-2023 14:04-0400 SaO2% (BldA) [Mass fraction] 100 % Eitan Price MD Work Phone: [facility] 06-25-2023 14:04-0400 Systolic blood pressure 116 mm[Hg] Eitan Price MD Work Phone: [facility] 12-26-2022 10:02-0500 Body height 149.9 cm Erica Thompson CREDIT CARD ANALYST-INFORMATION ENGINEER Work Phone: [facility] 12-26-2022 10:02-0500 Body mass index (BMI) [Ratio] 36.15 kg/m2 Erica Thompson CREDIT CARD ANALYST-INFORMATION ENGINEER Work Phone: [facility] 12-26-2022 10:02-0500 Body temperature 98.01 [degF] Erica Thompson CREDIT CARD ANALYST-INFORMATION ENGINEER Work Phone: [facility] 12-26-2022 10:02-0500 Body weight 81.19 kg Erica Thompson CREDIT CARD ANALYST-INFORMATION ENGINEER Work Phone: [facility] 12-26-2022 10:02-0500 Diastolic blood pressure 69 mm[Hg] Erica Thompson CREDIT CARD ANALYST-INFORMATION ENGINEER Work Phone: [facility] 12-26-2022 10:02-0500 Heart rate 68 /min Erica Thompson CREDIT CARD ANALYST-INFORMATION ENGINEER Work Phone: [facility] 12-26-2022 10:02-0500 Respiratory rate 18 /min Erica Thompson CREDIT CARD ANALYST-INFORMATION ENGINEER Work Phone: [facility] 12-26-2022 10:02-0500 Systolic blood pressure 137 mm[Hg] Erica Thompson CREDIT CARD ANALYST-INFORMATION ENGINEER Work Phone: [facility] 12-13-2022 14:28-0500 Body height 149.9 cm Eitan Price MD Work Phone: [facility] 12-13-2022 14:28-0500 Body mass index (BMI) [Ratio] 35.95 kg/m2 Eitan Price MD Work Phone: [facility] 12-13-2022 14:28-0500 Body temperature 97.11 [degF] Eitan Price MD Work Phone: [facility] 12-13-2022 14:28-0500 Body weight 80.74 kg Eitan Price MD Work Phone: [facility] 12-13-2022 14:28-0500 Diastolic blood pressure 70 mm[Hg] Eitan Price MD Work Phone: [facility] 12-13-2022 14:28-0500 Heart rate 70 /min Eitan Price MD Work Phone: [facility] 12-13-2022 14:28-0500 SaO2% (BldA) [Mass fraction] 97 % Eitan Price MD Work Phone: [facility] 12-13-2022 14:28-0500 Systolic blood pressure 122 mm[Hg] Eitan Price MD Work Phone: [facility] 12-06-2022 14:34-0400 Body height 149.[address] Eitan Price Work Phone: [facility] 12-06-2022 14:34-0400 Body mass index (BMI) [Ratio] 35.9 kg/m2 Dr. Eitan Price Work Phone: [facility] 12-06-2022 14:34-0400 Body weight 80.[address] Eitan Price Work Phone: [facility] 12-06-2022 14:34-0400 Diastolic blood pressure 79 mm[Hg] Dr. Eitan Price Work Phone: [facility] 12-06-2022 14:34-0400 Heart rate 69 /min Dr. Eitan Price Work Phone: [facility] 12-06-2022 14:34-0400 Respiratory rate 16 /min Dr. Eitan Price Work Phone: [facility] 12-06-2022 14:34-0400 Systolic blood pressure 154 mm[Hg] Dr. Eitan Price Work Phone: [facility] 12-02-2022 10:00-0400 Diastolic blood pressure 59 mm[Hg] Corbin Bryan MD Work Phone: [facility] 12-02-2022 10:00-0400 Heart rate 72 /min Corbin Bryan MD Work Phone: [facility] 12-02-2022 10:00-0400 Respiratory rate 18 /min Corbin Bryan MD Work Phone: [facility] 12-02-2022 10:00-0400 SaO2% (BldA) [Mass fraction] 98 % Corbin Bryan MD Work Phone: [facility] 12-02-2022 10:00-0400 Systolic blood pressure 121 mm[Hg] Corbin Bryan MD Work Phone: [facility] 12-02-2022 08:00-0400 Body temperature 97.7 [degF] Corbin Bryan MD Work Phone: [facility] 11-30-2022 18:56-0400 Body height 149.9 cm Corbin Bryan MD Work Phone: [facility] 11-30-2022 18:56-0400 Body mass index (BMI) [Ratio] 37.38 kg/m2 Corbin Bryan MD Work Phone: [facility] 11-30-2022 18:56-0400 Body weight 84 kg Corbin Bryan MD Work Phone: [facility] 06-02-2022 10:30-0400 Body height 152.4 cm Tori Roblero APRN-INFORMATION ENGINEER Work Phone: [facility] 06-02-2022 10:30-0400 Body mass index (BMI) [Ratio] 35.9 kg/m2 Tori Roblero CREDIT CARD ANALYST-INFORMATION ENGINEER Work Phone: [facility] 06-02-2022 10:30-0400 Body temperature 98.01 [degF] Tori Roblero APRN-INFORMATION ENGINEER Work Phone: [facility] 06-02-2022 10:30-0400 Body weight 83.37 kg Tori Roblero APRN-INFORMATION ENGINEER Work Phone: [facility] 06-02-2022 10:30-0400 Diastolic blood pressure 74 mm[Hg] Tori Roblero APRN-INFORMATION ENGINEER Work Phone: [facility] 06-02-2022 10:30-0400 Heart rate 77 /min Tori Roblero APRN-INFORMATION ENGINEER Work Phone: [facility] 06-02-2022 10:30-0400 SaO2% (BldA) [Mass fraction] 97 % Tori Roblero APRN-INFORMATION ENGINEER Work Phone: [facility] 06-02-2022 10:30-0400 Systolic blood pressure 130 mm[Hg] Tori Roblero APRN-INFORMATION ENGINEER Work Phone: [facility] 12-14-2021 08:37-0500 Body temperature 97.5 [degF] Eitan Price Work Phone: [employer] [facility] Work Phone: 12-14-2021 08:37-0500 Diastolic blood pressure 78 mm[Hg] Eitan Price Work Phone: [employer] [facility] Work Phone: 12-14-2021 08:37-0500 Heart rate 63 /min Eitan Price Work Phone: [employer] Work Phone: 12-14-2021 08:37-0500 SaO2% (BldA) [Mass fraction] 98 % Eitan Price Work Phone: [employer] [facility] Work Phone: 12-14-2021 08:37-0500 Systolic blood pressure 130 mm[Hg] Eitan Price Work Phone: [employer] [facility] Work Phone: 12-14-2021 08:30-0500 Body height 152.4 cm Eitan Price Work Phone: [employer] [facility] Work Phone: 12-14-2021 08:30-0500 Body mass index (BMI) [Ratio] 37.69 kg/m2 Eitan Price Work Phone: [facility] [facility] Work Phone: 12-14-2021 08:30-0500 Body surface area Derived from formula 1.84 m2 Eitan Price Work Phone: [employer] [facility] Work Phone: 12-14-2021 08:30-0500 Body weight 87.54 kg Eitan Price Work Phone: [employer] [facility] Work Phone: 12-12-2021 09:25-0500 Diastolic blood pressure 53 mm[Hg] [facility] Work Phone: [facility] 12-12-2021 09:25-0500 Heart rate 51 /min [facility] Work Phone: [facility] 12-12-2021 09:25-0500 Respiratory rate 16 /min [facility] Work Phone: [facility] 12-12-2021 09:25-0500 SaO2% (BldA) [Mass fraction] 98 % [facility] Work Phone: [facility] 12-12-2021 09:25-0500 Systolic blood pressure 148 mm[Hg] [facility] Work Phone: [facility] 12-12-2021 08:34-0500 Body temperature 98.4 [degF] [facility] Work Phone: [facility] 12-09-2021 09:54-0400 Diastolic blood pressure 63 mm[Hg] [facility] Work Phone: [facility] 12-09-2021 09:54-0400 Heart rate 54 /min [facility] Work Phone: [facility] 12-09-2021 09:54-0400 Respiratory rate 16 /min [facility] Work Phone: [facility] 12-09-2021 09:54-0400 SaO2% (BldA) [Mass fraction] 97 % [facility] Work Phone: [facility] 12-09-2021 09:54-0400 Systolic blood pressure 146 mm[Hg] [facility] Work Phone: [facility] 12-09-2021 09:00-0400 Body temperature 98.6 [degF] [facility] Work Phone: [facility] 12-07-2021 10:12-0400 Diastolic blood pressure 47 mm[Hg] [facility] Work Phone: [facility] 12-07-2021 10:12-0400 Heart rate 62 /min [facility] Work Phone: [facility] 12-07-2021 10:12-0400 Respiratory rate 16 /min [facility] Work Phone: [facility] 12-07-2021 10:12-0400 SaO2% (BldA) [Mass fraction] 97 % [facility] Work Phone: [facility] 12-07-2021 10:12-0400 Systolic blood pressure 136 mm[Hg] [facility] Work Phone: [facility] 12-07-2021 09:07-0400 Body temperature 98.4 [degF] [facility] Work Phone: [facility] 11-09-2021 15:23-0400 Body temperature 97.1 [degF] Eitan Abbasi [employer] Work Phone: -[facility]- Work Phone: 11-09-2021 15:23-0400 Diastolic blood pressure 78 mm[Hg] Eitan Ayleen [employer] Work Phone: -[facility] Work Phone: 11-09-2021 15:23-0400 Heart rate 61 /min Eitan Abbasi Leeannee Work Phone: -[facility]- Work Phone: 11-09-2021 15:23-0400 SaO2% (BldA) [Mass fraction] 99 % Eitan Ayleen [employer] Work Phone: -[facility]- Work Phone: 11-09-2021 15:23-0400 Systolic blood pressure 126 mm[Hg] Eitan Abbasi Leeannee Work Phone: -[facility]- Work Phone: 11-09-2021 15:20-0400 Body height 152.4 cm Eitan Ayleen [employer] Work Phone: -[facility]- Work Phone: 11-09-2021 15:20-0400 Body mass index (BMI) [Ratio] 38.08 kg/m2 Eitan Abbasi [employer] Work Phone: -[facility]- Work Phone: 11-09-2021 15:20-0400 Body surface area Derived from formula 1.85 m2 Eitan Bradshawee Work Phone: [facility]- Work Phone: 11-09-2021 15:20-0400 Body weight 88.45 kg Eitan Bradshawee Work Phone: [facility]- Work Phone: 10-06-2021 16:03-0400 Body height 152.4 cm Eitan Bradshawee Work Phone: -[facility]- Work Phone: 10-06-2021 16:03-0400 Body mass index (BMI) [Ratio] 38.47 kg/m2 Eitan Abbasi [employer] Work Phone: [facility]- Work Phone: 10-06-2021 16:03-0400 Body surface area Derived from formula 1.85 m2 Eitan Abbasi [employer] Work Phone: [facility]- Work Phone: 10-06-2021 16:03-0400 Body weight 89.36 kg Eitan Bradshawee Work Phone: [facility]- Work Phone: 10-06-2021 16:03-0400 Diastolic blood pressure 78 mm[Hg] Eitan Bradshawee Work Phone: [facility]- Work Phone: 10-06-2021 16:03-0400 Heart rate 76 /min Eitan Abbasi [employer] Work Phone: -[facility]- Work Phone: 10-06-2021 16:03-0400 Systolic blood pressure 136 mm[Hg] Eitan Abbasi [employer] Work Phone: [facility]- Work Phone: 09-22-2021 14:01-0400 Body height 152.4 cm Eitan Bradshawee Work Phone: [facility]- Work Phone: 09-22-2021 14:01-0400 Body mass index (BMI) [Ratio] 39.06 kg/m2 Eitan Bradshawee Work Phone: [facility]- Work Phone: 09-22-2021 14:01-0400 Body surface area Derived from formula 1.87 m2 Eitan Abbasi [employer] Work Phone: [facility]- Work Phone: 09-22-2021 14:01-0400 Body weight 90.72 kg Eitan Bradshawee Work Phone: [facility]- Work Phone: 09-22-2021 14:01-0400 Diastolic blood pressure 76 mm[Hg] Eitan Abbasi [employer] Work Phone: [facility]- Work Phone: 09-22-2021 14:01-0400 Heart rate 63 /min Eitan Bradshawee Work Phone: [facility]- Work Phone: 09-22-2021 14:01-0400 Systolic blood pressure 132 mm[Hg] Eitan Abbasi [place] Work Phone: [facility]- Work Phone: 09-07-2021 13:59-0400 Body height 152.4 cm Eitan Abbasi [employer] Work Phone: [facility]- Work Phone: 09-07-2021 13:59-0400 Body mass index (BMI) [Ratio] 37.69 kg/m2 Eitan Bradshawee Work Phone: -[facility] Work Phone: 09-07-2021 13:59-0400 Body surface area Derived from formula 1.84 m2 Eitan Bradshawee Work Phone: -[facility] Work Phone: 09-07-2021 13:59-0400 Body weight 87.54 kg Eitan Bradshawee Work Phone: [facility] Work Phone: 09-07-2021 13:59-0400 Diastolic blood pressure 74 mm[Hg] Eitan Bradshawee Work Phone: -[facility]- Work Phone: 09-07-2021 13:59-0400 Heart rate 68 /min Eitan Bradshawee Work Phone: -[facility]- Work Phone: 09-07-2021 13:59-0400 Systolic blood pressure 130 mm[Hg] Eitan Bradshawee Work Phone: -[facility]- Work Phone: 08-02-2021 13:25-0400 Body height 152.4 cm Eitan Bradshawee Work Phone: -[facility]- Work Phone: 08-02-2021 13:25-0400 Body mass index (BMI) [Ratio] 37.89 kg/m2 Eitan Bradshawee Work Phone: -[facility]- Work Phone: 08-02-2021 13:25-0400 Body surface area Derived from formula 1.84 m2 Eitan Bradshawee Work Phone: -[facility]- Work Phone: 08-02-2021 13:25-0400 Body weight 88 kg Eitan Abbasi [employer] Work Phone: [facility] Work Phone: 08-02-2021 13:25-0400 Diastolic blood pressure 74 mm[Hg] Eitan Abbasi [place] Work Phone: [facility] Work Phone: 08-02-2021 13:25-0400 Heart rate 79 /min Eitan Abbasi [employer] Work Phone: -[facility] Work Phone: 08-02-2021 13:25-0400 Systolic blood pressure 130 mm[Hg] Eitan Abbasi [place] Work Phone: -[facility]- Work Phone: 12-17-2020 12:25-0500 Body height 152.4 cm Eitan Abbasi [employer] Work Phone: -[facility]- Work Phone: 12-17-2020 12:25-0500 Body mass index (BMI) [Ratio] 37.89 kg/m2 Eitan Bradshawee Work Phone: -[facility]- Work Phone: 12-17-2020 12:25-0500 Body surface area Derived from formula 1.84 m2 Eitan Abbasi [employer] Work Phone: -[facility] Work Phone: 12-17-2020 12:25-0500 Body temperature 97.5 [degF] Eitan Abbasi [place] Work Phone: -[facility] Work Phone: 12-17-2020 12:25-0500 Body weight 88 kg Eitan Abbasi [employer] Work Phone: [facility] Work Phone: 12-17-2020 12:25-0500 Diastolic blood pressure 60 mm[Hg] Eitan Bradshawee Work Phone: -[facility]- Work Phone: 12-17-2020 12:25-0500 Heart rate 60 /min Eitan Bradshawee Work Phone: -[facility]- Work Phone: 12-17-2020 12:25-0500 Systolic blood pressure 110 mm[Hg] Eitan Bradshawee Work Phone: -[facility]- Work Phone: 11-30-2020 14:00-0400 Body height 152.4 cm Eitan Bradshawee Work Phone: [facility]- Work Phone: 11-30-2020 14:00-0400 Body mass index (BMI) [Ratio] 37.3 kg/m2 Eitan Bradshawee Work Phone: -[facility]- Work Phone: 11-30-2020 14:00-0400 Body surface area Derived from formula 1.83 m2 Eitan Bradshawee Work Phone: [facility]- Work Phone: 11-30-2020 14:00-0400 Body temperature 97.3 [degF] Eitan Bradshawee Work Phone: [facility]- Work Phone: 11-30-2020 14:00-0400 Body weight 86.64 kg Eitan Bradshawee Work Phone: [facility]- Work Phone: 11-30-2020 14:00-0400 Diastolic blood pressure 68 mm[Hg] Eitan Bradshawee Work Phone: -[facility]- Work Phone: 11-30-2020 14:00-0400 Heart rate 58 /min Eitan Bradshawee Work Phone: -[facility]- Work Phone: 11-30-2020 14:00-0400 Systolic blood pressure 128 mm[Hg] Eitan Bradshawee Work Phone: -[facility]- Work Phone: 11-10-2020 09:35-0400 Body height 152.4 cm Eitan Bradshawee Work Phone: -[facility]- Work Phone: 11-10-2020 09:35-0400 Body mass index (BMI) [Ratio] 37.5 kg/m2 Eitan Bradshawee Work Phone: [facility]- Work Phone: 11-10-2020 09:35-0400 Body surface area Derived from formula 1.83 m2 Eitan Bradshawee Work Phone: [facility]- Work Phone: 11-10-2020 09:35-0400 Body temperature 97.3 [degF] Eitan Bradshawee Work Phone: -[facility]- Work Phone: 11-10-2020 09:35-0400 Body weight 87.09 kg Eitan Bradshawee Work Phone: -[facility] Work Phone: 11-10-2020 09:35-0400 Diastolic blood pressure 68 mm[Hg] Eitan Bradshawee Work Phone: [facility]- Work Phone: 11-10-2020 09:35-0400 Heart rate 60 /min Eitan Bradshawee Work Phone: [facility]- Work Phone: 11-10-2020 09:35-0400 Systolic blood pressure 132 mm[Hg] Eitan Bradshawee Work Phone: [facility]- Work Phone: 07-01-2020 15:02-0400 Body mass index (BMI) [Ratio] 17.97 kg/m2 Eitan Bradshawee Work Phone: [facility]- Work Phone: 07-01-2020 15:02-0400 Body surface area Derived from formula 1.34 m2 Eitan Bradshawee Work Phone: [facility]- Work Phone: 07-01-2020 15:02-0400 Body temperature 97.85 [degF] Eitan Bradshawee Work Phone: [facility]- Work Phone: 07-01-2020 15:02-0400 Body weight 41.73 kg Eitan Bradshawee Work Phone: [facility]- Work Phone: 07-01-2020 15:02-0400 Diastolic blood pressure 70 mm[Hg] Eitan Abbasi Mabee Work Phone: [facility]- Work Phone: 07-01-2020 15:02-0400 Heart rate 62 /min Eitan Abbasi Mabee Work Phone: [facility]- Work Phone: 07-01-2020 15:02-0400 Systolic blood pressure 128 mm[Hg] Eitan Price Work Phone: [facility] Work Phone: 08-14-2018 15:56-0400 Body temperature 37.0 Deg [facility] Comment on above: Performed By: #### ABG #### [place] [id number] 07-02-2018 11:57-0400 BMI (Body Mass Index) 38.28 kg/m2 Eitan Price [facility] Work Phone: 07-02-2018 11:57-0400 Body Temperature 97.7 [degF] Eitan Price [facility] Work Phone: 07-02-2018 11:57-0400 Body weight 88.91 kg Eitan Price [facility] Work Phone: 07-02-2018 11:57-0400 BP Diastolic 74 mm[Hg] Eitan Price [facility] Work Phone: 07-02-2018 11:57-0400 BP Systolic 118 mm[Hg] Eitan Price [facility] Work Phone: 07-02-2018 11:57-0400 BSA (Body Surface Area) 1.85 m2 Eitan Price [facility] Work Phone: 07-02-2018 11:57-0400 Height 152.4 cm Eitan Price [facility] Work Phone: 07-02-2018 11:57-0400 Pulse (Heart Rate) 60 /min Eitan Price [facility] Work Phone: 09-19-2016 08:27-0400 BMI (Body Mass Index) 39.5 kg/m2 [facility] Work Phone: 09-19-2016 08:27-0400 BP Diastolic 72 mm[Hg] [facility] Work Phone: 09-19-2016 08:27-0400 BP Systolic 130 mm[Hg] [facility] Work Phone: 09-19-2016 08:27-0400 Height 149.86 cm [facility] Work Phone: 09-19-2016 08:27-0400 Pulse (Heart Rate) 56 /min [facility] Work Phone: 09-19-2016 08:27-0400 Respiratory Rate 20 /min [facility] Work Phone: 09-19-2016 08:27-0400 Weight 88.72 kg [facility] Work Phone: 07-11-2016 13:10-0400 BMI (Body Mass Index) 38.17 kg/m2 [facility] Work Phone: 07-11-2016 13:10-0400 BP Diastolic 52 mm[Hg] [facility] Work Phone: 07-11-2016 13:10-0400 BP Systolic 126 mm[Hg] [facility] Work Phone: 07-11-2016 13:10-0400 Height 149.86 cm [facility] Work Phone: 07-11-2016 13:10-0400 Pulse (Heart Rate) 66 /min [facility] Work Phone: 07-11-2016 13:10-0400 Pulse Oximetry 98 % [facility] Work Phone: 07-11-2016 13:10-0400 Respiratory Rate 18 /min [facility] Work Phone: 07-11-2016 13:10-0400 Weight 85.73 kg [facility] Work Phone: Encounters Encounter Date Encounter Type Care Provider Facility Start: 08-18-2024 End: 08-18-2024 Emergency department patient visit Dr. Eitan Price MD Work Phone: -Emergency Department Work Phone: Start: 08-17-2024 End: 08-18-2024 Emergency department patient visit Dr. Eitan Price MD Work Phone: -Emergency Department Work Phone: Start: 11-28-2023 End: 11-28-2023 Office outpatient visit 15 minutes Eitan Price MD Work Phone: [facility] Comment on above: ASHD (arteriosclerot ic heart disease) (Primary Dx); Hyperlipidemia, unspecified hyperlipidemia type; Type 2 diabetes mellitus without complication, without long-term current use of insulin (Multi); Hypertension, unspecified type; Anemia, unspecified type; CKD (chronic kidney disease), stage II Start: 11-28-2023 End: 11-28-2023 ambulatory 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 (Primary Dx); Type 2 diabetes mellitus without complication, without long-term current use of insulin (HCC) Start: 11-13-2023 End: 11-14-2023 ambulatory MARK VAZQUEZ Facility:[facility] Start: 11-09-2023 End: 11-09-2023 ambulatory [facility] Start: 11-06-2023 End: 11-06-2023 ambulatory [facility] Start: 10-03-2023 End: 10-03-2023 Subsequent hospital visit by physician Lynne [id number] X-Ray 1 [facility] Comment on above: Chronic pain of both knees Start: 10-03-2023 End: 10-03-2023 Office outpatient visit 25 minutes Eitan Price MD Work Phone: [facility] Comment on above: Depression, unspecif ied depression type (Primary Dx); Chronic pain of both knees; Type 2 diabetes mellitus without complication, without long-term current use of insulin (Multi); Hyperlipidemia, unspecified hyperlipidemia type; Hypertension, unspecified type; ASHD (arteriosclerotic heart disease); Anxiety; HFrEF (heart failure with reduced ejection fraction) (Multi); COPD exacerbation (Multi); Paroxysmal atrial fibrillation (Multi) Start: 10-03-2023 End: 10-03-2023 ambulatory [facility] Start: 09-28-2023 End: 09-28-2023 ambulatory [facility] Start: 07-26-2023 End: 07-26-2023 ambulatory [facility] Start: 06-25-2023 End: 06-25-2023 Assay of hemosiderin, quant Eitan Price MD Work Phone: [facility] Work Phone: Start: 06-25-2023 End: 06-25-2023 Patient encounter procedure Eitan Price MD Work Phone: [facility] Comment on above: Routine general medi malvin examination at health care facility (Primary Dx); Medicare annual wellness visit, subsequent; Depression, unspecified depression type; ASHD (arteriosclerotic heart disease); Type 2 diabetes mellitus without complication, without long-term current use of insulin (Multi) Start: 06-25-2023 End: 06-25-2023 ambulatory [facility] Start: 06-25-2023 End: 06-25-2023 Encounter for general adult medical examination without abnormal findings [facility] Start: 06-19-2023 End: 06-19-2023 ambulatory [facility] Start: 12-26-2022 End: 12-26-2022 Office outpatient visit 15 minutes Kimberli Jay CREDIT CARD ANALYST-INFORMATION ENGINEER Work Phone: [facility] Comment on above: SDH (subdural hemato ma) (CMS/HCC) (Primary Dx) Start: 12-26-2022 End: 12-26-2022 ambulatory KIMBERLI [facility] Start: 12-20-2022 End: 12-20-2022 ambulatory [facility] Start: 12-13-2022 End: 12-13-2022 Office outpatient visit 25 minutes Eitan Price MD Work Phone: [facility] Comment on above: Subdural hemorrhage [...] disease); Acute non-ST elevation myocardial infarction (NSTEMI) ([facility]/HCC) Start: 12-11-2022 End: 12-11-[address] [facility] Start: 12-07-2022 End: 12-07-[address] Eitan Price Work Phone: [facility] Work Phone: Start: 12-07-2022 End: 12-07-[address] Eitan Price Work Phone: [facility] Work Phone: Start: 12-06-2022 End: 12-06-[address] Eitan Price Work Phone: [facility] Work Phone: Start: 11-29-2022 End: 12-26-2022 ambulatory CORBIN BRYAN [facility] Start: 11-29-2022 End: 11-29-2022 Subsequent hospital visit by physician [facility] Comment on above: ACS (acute coronary syndrome) (CMS/HCC) Start: 11-29-2022 End: 12-02-2022 Evaluation and management of inpatient Corbin Bryan MD Work Phone: [facility] Comment on above: Subdural hemorrhage (CMS/HCC) (Primary Dx); Fall, initial encounter Start: 10-11-2022 End: 10-11-2022 Patient encounter procedure Hearing Aid Otol Ag [place] Work Phone: 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 Eitan Telles [facility] Facility:[id number] Start: 10-04-2022 End: 10-04-2022 Patient encounter procedure Hearing Aid Otol Ag [place] Work Phone: 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, [facility] (ENT) Comment on above: ETD (Eustachian tube dysfunction), bilateral (Primary Dx); Sensorineural hearing loss (SNHL) of both ears Start: 06-02-2022 ambulatory Ms. Valle Carmina trudy Osbaldo Facility:[id number] Start: 06-02-2022 End: 06-02-2022 Office outpatient visit 25 minutes Tori Roblero CREDIT CARD ANALYST-INFORMATION ENGINEER Work Phone: [facility] Comment on above: Acute cough (Primary Dx); Upper respiratory tract infection, unspecified type; Anemia, unspecified type; Type 2 diabetes mellitus without complication, without long-term current use of insulin ([facility]); Iron deficiency; Vitamin B12 deficiency; Screening for thyroid disorder; Vitamin D deficiency; Hyperlipidemia, unspecified hyperlipidemia type Start: 02-03-2022 AUDIT Eitan Price Work Phone: [facility] Work Phone: Start: 01-11-2022 End: 01-12-2022 ambulatory Jose Landeros Rio Work Phone: [facility] Comment on above: Anemia, unspecified (Primary Dx) Start: 12-14-2021 Office outpatient vi sit 25 minutes Eitan Price Work Phone: [facility] Work Phone: Start: 12-12-2021 ambulatory JOSE A SONYA Facil ity:[facility] Start: 12-12-2021 End: 12-12-2021 Subsequent hospital visit by physician Chair [facility] Work Phone: Infusion Center Comment on above: Venofer Infusion Start: 12-09-2021 Chart Update Eitan Price Work Phone: [facility] Work Phone: Start: 12-09-2021 ambulatory JOSE A SONYA Facil ity:[facility] Start: 12-09-2021 End: 12-09-2021 Subsequent hospital visit by physician Chair [facility] Work Phone: Infusion Center Comment on above: Venofer Infusion Start: 12-07-2021 ambulatory JOSE A SONYA Facil ity:[facility] Start: 12-07-2021 End: 12-07-2021 Subsequent hospital visit by physician Chair [facility] Work Phone: Infusion Center Comment on above: [facility] Infusion Start: 12-02-2021 AUDIT Eitan Price Work Phone: [facility] Work Phone: Start: 11-22-2021 Chart Update Eitan Abbasi Mabee Work Phone: [facility] Work Phone: Start: 11-09-2021 Chart Update Eitan Abbasi [place]ab[place] Work Phone: [facility] Work Phone: Start: 10-06-2021 Office outpatient vi sit 25 minutes Eitan Abbasi [place]ab[place] Work Phone: [facility] Work Phone: Start: 10-03-2021 AUDIT Eitan Abbasi [place]ab[place] Work Phone: [facility] Work Phone: Start: 09-22-2021 Office outpatient vi sit 25 minutes Eitan Abbasi [place]ab[place] Work Phone: [facility] Work Phone: Start: 09-15-2021 Chart Update Eitan Abbasi Mabee Work Phone: [facility] Work Phone: Start: 09-07-2021 Office outpatient vi sit 25 minutes Eitan Abbasi [place]ab[place] Work Phone: [facility] Work Phone: Start: 08-24-2021 AUDIT Eitan Abbasi [place]ab[place] Work Phone: [facility] Work Phone: Start: 08-04-2021 Chart Update Eitan Abbasi Mabee Work Phone: [facility] Work Phone: Start: 08-03-2021 Chart Update Eitan Abbasi Mabee Work Phone: [facility] Work Phone: Start: 08-02-2021 Office outpatient vi sit 25 minutes Eitan Price Work Phone: [facility] Work Phone: Start: 08-02-2021 Patient encounter procedure Eiatn Priec Work Phone: -[facility] Work Phone: Start: 08-01-2021 Chart Update Eitan Price Work Phone: [facility] Work Phone: Start: 12-17-2020 FUV, Provider: Eitan Price, Status: Pen, Time: 12:45 PM Eitan Price Work Phone: [facility] Work Phone: Start: 12-17-2020 Office outpatient vi sit 15 minutes Eitan Price Work Phone: [facility] Work Phone: Start: 12-17-2020 Patient encounter procedure Eitan Price Work Phone: [facility] Work Phone: Start: 12-15-2020 Chart Update Eitan Price Work Phone: [facility] Work Phone: Start: 11-30-2020 Office outpatient vi sit 25 minutes Eitan Price Work Phone: [facility] Work Phone: Start: 07-01-2020 Office outpatient vi sit 25 minutes Eitan Price Work Phone: [facility] Work Phone: Start: 07-29-2019 End: 07-29-2019 [facility] Comment on above: Left lower quadrant pain [R10.32] Start: 07-02-2018 Patient encounter procedure [facility]- Work Phone: Start: 01-01-2018 Patient encounter procedure Eitan Price [facility] Work Phone: Start: 07-04-2017 Patient encounter procedure Eitan Price [facility] Work Phone: Start: 12-12-2016 Patient encounter procedure [facility]- Work Phone: Start: 08-16-2016 Patient encounter procedure Eitan Price [facility] Work Phone: Start: 07-14-2016 Patient encounter procedure Eitan Price [facility] Work Phone: Start: 07-13-2010 End: 07-13-2010 Patient encounter procedure Phill Rodarte Work Phone: [facility] Start: 07-13-2010 Results Only Phill Rodarte Work Phone: [facility] Start: 11-11-2008 End: 11-11-2008 Patient encounter procedure Phill Rodarte Work Phone: [facility] Start: 11-11-2008 Results Only Phill Rodarte Work Phone: [facility] Start: 10-23-2007 End: 10-23-2007 Patient encounter procedure Mckay Wang Work Phone: [facility] Start: 10-23-2007 Results Only Mckay hussein Work Phone: [facility] Patient encounter procedure Eitan Ayleen Price Work Phone: -[facility]- Work Phone: Procedures Date Procedure Procedure Detail Performing Clinician Start: 08-17-2024 Plain chest X-ray Dr. Marcos Price MD Work Phone: Start: 08-17-[address] Eitan Price MD Work Phone: Start: 11-28-2023 Follow-up visit Follow-up EITAN PRICE [...] EITAN PRICE Start: 06-19-2023 Comprehensive metabo lic 2000 panel - Serum or Plasma EITAN PRICE Start: 06-19-2023 Ferritin [Mass/volum e] in Serum or Plasma EITAN PRICE Start: 06-19-2023 Hemoglobin A1c/Hemoglobin.total in Blood EITAN PRICE Start: 06-19-2023 IRON AND TIBC EITAN BRADSHAW EE Start: 06-19-2023 Lipid panel EITAN ADRIENNE E Start: 06-19-2023 Lipid 1996 panel - S ria or Plasma Eitan Price MD Work Phone: Start: 12-26-2022 ECG 12-LEAD EITAN ADRIENNE E Start: 12-20-2022 CT HEAD WO IV CONTRAST EITAN PRICE Start: 12-11-2022 Comprehensive metabo lic 2000 panel - Serum or Plasma EITAN PRICE Start: 12-11-2022 Hemoglobin A1c/Hemoglobin.total in Blood EITAN PRICE Start: 12-11-2022 Lipid panel EITAN ADRIENNE E Start: 12-11-2022 Lipid 1996 panel - S ria or Plasma Eitan Price MD Work Phone: Start: 12-02-2022 DISCHARGE PATIENT EITAN PRICE Start: 12-02-2022 ADULT DISCHARGE DIET SC CATHI PRICE Start: 12-02-2022 DISCHARGE ACTIVITY SCOT T ALBERT Start: 12-02-2022 NOTIFY PROVIDER (DO NOT PROMPT FOR PARAMETERS) EITAN PRICE Start: 12-02-2022 Basic metabolic 2000 panel - Serum or Plasma EITAN PRICE Start: 12-02-2022 CBC panel - Blood by Automated count EITAN [facility] Start: 12-02-2022 Basic metabolic pane l calcium total Viik Edmond CREDIT CARD ANALYST-INFORMATION ENGINEER Work Phone: Start: 11-30-2022 ECG 12-LEAD EITAN DELEON E Start: 11-30-2022 Ecg routine ecg w/le ast 12 lds trcg only w/o i&r Historical Provider Work Phone: Start: 11-30-2022 IP CONSULT TO NUTRIT ION SERVICES EITAN [facility] Start: 11-30-2022 Glucose [Mass/volume ] in Serum or Plasma [facility] Start: 11-30-2022 Basic metabolic 2000 panel - Serum or Plasma EITAN [facility] Start: 11-30-2022 CBC panel - Blood by Automated count [facility] Start: 11-30-2022 Glucose quantitative blood xcpt reagent strip Jose Parker MD Work Phone: Start: 11-30-2022 Basic metabolic pane l calcium total Sintia Hernandez PA-C Work Phone: Start: 11-30-2022 Glucose [Mass/volume ] in Serum or Plasma EITAN [facility] Start: 11-30-2022 HEIGHT AND WEIGHT EITAN [facility] Start: 11-30-2022 REASON FOR NO DVT PROPHYLAXIS - HOSPITAL ADMISSION - MEDICATIONS EIT[facility] Start: 11-30-2022 TELEMETRY MONITORING IN CATHI [facility] Start: 11-30-2022 Glucose quantitative blood xcpt reagent strip Jose Parker MD Work Phone: Start: 11-30-2022 CT HEAD WO IV CONTRAST EITAN [facility] Start: 11-29-2022 Glucose [Mass/volume ] in Serum or Plasma [facility] Start: 11-29-2022 Ct head/brain w/o contrast material Florence Borges DO Work Phone: Start: 11-29-2022 Glucose quantitative blood xcpt reagent strip Jose Parker MD Work Phone: Start: 11-29-2022 IP CONSULT TO CARDIOLOGY EIT[facility] Start: 11-29-2022 ADMIT TO INPATIENT [facility] Teena MABEE Start: 11-29-2022 Basic metabolic 2000 panel - Serum or Plasma EITAN PRICE Start: 11-29-2022 CBC W Auto Different ial panel - Blood EITAN BRADSHAWEE Start: 11-29-2022 PROTIME-INR EITAN BRADSHAWE E Start: 11-29-2022 TYPE AND SCREEN EITAN ROCK Start: 11-29-2022 ED TO FLOOR BED REQUEST EITAN BRADSHAWEE Start: 11-29-2022 INSERT PERIPHERAL IV SC CATHI LEEANNEE Start: 11-29-2022 IP CONSULT TO NEUROSURGERY EITAN BRADSHAWEE Start: 11-29-2022 CT CERVICAL SPINE WO IV CONTRAST EITAN BRADSHAWEE Start: 11-29-2022 CT FACIAL BONES WO I V CONTRAST EITAN BRADSHAWEE Start: 11-29-2022 CT HEAD W/O CONTRAST TRAUMA PROTOCOL EITAN BRADSHAWEE Start: 11-29-2022 Antibody screen rbc each serum technique Florence Borges DO Work Phone: Start: 11-29-2022 Basic metabolic pane l calcium total Corbin Bryan MD Work Phone: Start: 11-29-2022 Ct cervical spine w/ o contrast material Florence Borges DO Work Phone: Start: 11-29-2022 Ct maxillofacial w/o contrast material Corbin Bryan MD Work Phone: Start: 08-31-2022 HEARING TEST/AUDIOGRAM Diane Cronin DO Work Phone: Start: 06-26-2022 Lipid 1996 panel - S ria or Plasma Corbin Bryan MD Work Phone: Start: 01-11-2022 Blood count complete auto&auto difrntl wbc Jose Landeros Rio Work Phone: Start: 08-01-2021 Lipid 1996 panel - S ria or Plasma Tori Roblero APRN-INFORMATION ENGINEER Work Phone: Start: 07-29-2019 Ct abdomen & pelvis w/o contrast material Tenisha Jackson Work Phone: Start: 07-02-2018 Albumin, Urine Spot Sco stormy Mabee Start: 07-02-2018 Comprehensive metabo lic 2000 panel Eitan Mabee Start: 07-02-2018 Hemoglobin glycosyla len a1c Eitan Price Start: 07-02-2018 Lipid panel Eitan yates Start: 09-19-2016 End: 09-19-2016 VLADISLAV Rondon MD [...] Phone: Start: 08-05-2016 End: 09-19-2016 Referral to corporate learning consultant Oscar Rondon MD Work Phone: Start: 07-11-2016 End: 07-11-2016 VLADISLAV Rondon MD Work Phone: Start: 07-11-2016 End: 07-11-2016 Follow Up Appt 2 months Oscar Rondon MD Work Phone: Start: 07-10-2016 History of placement of stent for coronary artery disease Status post coronary artery stent placement Tori Roblero CREDIT CARD ANALYSTOne On One Ads Work Phone: Start: 07-10-2016 Placement of stent i n coronary artery Status post cardiac stent placement Jarrodraymundo Trish Start: 06-23-2016 History of placement of stent for coronary artery disease History of coronary artery stent placement Tori Roblero CREDIT CARD ANALYSTOne On One Ads Work Phone: Comment on above: PCI/SHEILA to LAD w/ 3. 0 x 16 mm [employer] 06/23/2016 Start: 07-13-2010 CONVERTED SURGICAL PATHOLOGY Phill Rodarte [...] DTaP/Tdap/Td Vaccines (2 - Td or Tdap) [facility] Start: 11-29-2032 Urine microalbumin profile DTaP,Tdap,Td Vaccine (2 - Td or Tdap) [facility] Start: 09-27-2026 Diabetes Screening Diabetes Screenin g [facility] Start: 06-26-2025 DIABETES SCREEN DIABETES SCREEN [facility] Start: 11-25-2024 Creatinine measurement Creatinine Le edmundo [facility] Start: 11-25-2024 Potassium measurement Potassium Leve l [facility] Start: 09-27-2024 Lipid panel Lipid Panel [facility] Start: 08-18-2024 [facility] Start: 08-17-2024 [facility] Start: 07-10-2024 End: 07-10-2024 Patient encounter procedure 07/10/2024 11:00 AM EDT Office Visit [facility] [address] [place] [id number] Eitan Price MD [address] [facility] [facility] [place] [address] [facility] Start: 06-25-2024 Medicare Annual Well ness Visit Medicare Annual Wellness Visit (AWV) [facility] Start: 06-18-2024 Lipid panel Lipid Panel [facility] [facility] Start: 02-26-2024 Hemoglobin A1c measurement Diabetes: Hemoglobin A1C [facility] Start: 12-29-2023 Hemoglobin A1c measurement Diabetes: Hemoglobin A1C [facility] Start: 12-12-2023 Lipid panel Lipid Panel [facility] Start: 12-08-2023 Echocardiography Echocardiogram [facility] Start: 11-28-2023 End: 11-28-2023 Patient encounter procedure 11/28/2023 10:00 AM EDT Office Visit [facility] [address] [place] [phone] Eitan Price MD [address] [facility], [address] [place] [address] [facility] Start: 11-25-2023 End: 10-02-2024 Comprehensive metabolic 2000 panel - Serum or Plasma Comprehensive metabolic panel Lab Routine Type 2 diabetes mellitus without complication, without long-term current use of insulin (Multi) Expected: 11/25/2023 (Approximate), Expires: 10/02/2024 [facility] Service Area Work Phone: Comment on above: Expected: 11/25/2023 (Approximate), Expires: 10/02/2024 Start: 11-25-2023 End: 10-02-2024 Hemoglobin A1c/Hemoglobin.total in Blood Hemoglobin A1C Lab Routine Type 2 diabetes mellitus without complication, without long-term current use of insulin (Multi) Expected: 11/25/2023 (Approximate), Expires: 10/02/2024 [facility] Work Phone: Comment on above: Expected: 11/25/2023 (Approximate), Expires: 10/02/2024 Start: 10-07-2023 Covid-19 Vaccine ( season) Covid-19 Vaccine ( season) [facility] Start: 10-07-2023 Influenza vaccination Influenza Vacc ine (#1) [facility] Start: 10-03-2023 End: 10-03-2023 Patient encounter procedure 10/03/2023 3:30 PM EDT Office Visit [facility] [address] [facility] [address] [place] [phone] Eitan Price MD [address] [facility], [address] [place] [address] [facility] Start: 10-03-2023 End: 10-02-2024 XR Knee - bilateral AP W standing [facility] Service Area Work Phone: Comment on above: Once for 1 Occurrenc es starting 10/03/2023 until 10/03/2023 Expected: 10/03/2023 , Expires: 10/02/2024 Start: 09-25-2023 End: 06-24-2024 CBC W Auto Differential panel - Blood CBC and Auto Differential Lab Routine ASHD (arteriosclerotic heart disease) Expected: 09/25/2023 (Approximate), Expires: 06/24/2024 [facility] Work Phone: Comment on above: Expected: 09/25/2023 (Approximate), Expires: 06/24/2024 Start: 09-25-2023 End: 06-24-2024 Comprehensive metabolic 2000 panel - Serum or Plasma Comprehensive metabolic panel Lab Routine ASHD (arteriosclerotic heart disease) Expected: 09/25/2023 (Approximate), Expires: 06/24/2024 [facility] Area Work Phone: Comment on above: Expected: 09/25/2023 (Approximate), Expires: 06/24/2024 Start: 09-25-2023 End: 06-24-2024 Hemoglobin A1c/Hemoglobin.total in Blood Hemoglobin A1C Lab Routine Type 2 diabetes mellitus without complication, without long-term current use of insulin (Multi) Expected: 09/25/2023 (Approximate), Expires: 06/24/2024 [facility] Work Phone: Comment on above: Expected: 09/25/2023 (Approximate), Expires: 06/24/2024 Start: 09-25-2023 End: 06-24-2024 Lipid 1996 panel - Serum or Plasma Lipid Panel Lab Routine ASHD (arteriosclerotic heart disease) Expected: 09/25/2023 (Approximate), Expires: 06/24/2024 [facility] Work Phone: Comment on above: Expected: 09/25/2023 (Approximate), Expires: 06/24/2024 Start: 09-19-2023 Hemoglobin A1c measurement Diabetes: Hemoglobin A1C [facility] Start: 06-30-2023 Medicare Annual Well ness Visit Medicare Annual Wellness Visit (AWV) [facility] Start: 06-27-2023 Lipid panel Lipid Panel [facility] Start: 06-25-2023 End: 06-25-2023 Patient encounter procedure 06/25/2023 2:30 PM EDT Office Visit [facility] [address] [place] [address] Eitan Price MD [address] [facility], [address] [place] [address] [facility] Start: 04-25-2023 COVID-19 Vaccine () COVID-19 Vaccine () [facility] Start: 04-23-2023 Urine screening for protein Diabetes: Urine Protein Screening [facility] Start: 03-13-2023 Hemoglobin A1c measurement Diabetes: Hemoglobin A1C [facility] Start: 02-19-2023 COVID-19 Vaccine (4 - Moderna series) COVID-19 Vaccine (4 - Moderna series) [facility] Start: 02-05-2023 Advance Directive Discussion Advance Directive Discussion [facility] Start: 12-26-2022 End: 12-26-2022 Patient encounter procedure 12/26/2022 10:30 AM EST Office Visit [facility] [address] [place] [phone] Erica Thompson, CREDIT CARD ANALYST-INFORMATION ENGINEER [address] [place] [address] [facility] Start: 12-20-2022 End: 12-20-2022 Professional / ancillary services management 12/20/2022 10:30 AM EST Ancillary Procedure [facility] [address] [place] [address] [facility] Start: 12-13-2022 End: 12-13-2022 Patient encounter procedure 12/13/2022 3:00 PM EST Office Visit [facility] [address] [place] [phone] Eitan Price MD [address] [facility], [address] [place] [address] [facility] Start: 10-06-2022 Influenza vaccination [facility] Start: 09-26-2022 Hemoglobin A1c measurement Diabetes: Hemoglobin A1C [facility] Start: 08-03-2022 Medicare Annual Well ness Visit Medicare Annual Wellness Visit (AWV) [facility] Start: 08-01-2022 Lipid panel Lipid Panel [facility] Start: 07-28-2022 DIABETES SCREEN DIABETES SCREEN [facility] Start: 07-24-2022 Hemoglobin A1c measurement Diabetes: Hemoglobin A1C [facility] Start: 06-28-2022 End: 06-28-2022 Patient encounter procedure 06/28/2022 3:00 PM EDT Office Visit [facility] [address] [place] [phone] Eitan Price MD [address] [facility], [address] [place] [address] [facility] Start: 06-02-2022 End: 06-03-2023 Calcitriol [Mass/volume] in Serum or Plasma Vitamin D 1,25 Dihydroxy Lab Routine Vitamin D deficiency Expected: 06/02/2022 (Approximate), Expires: 06/03/2023 [facility] Work Phone: Comment on above: Expected: 06/02/2022 (Approximate), Expires: 06/03/2023 Start: 06-02-2022 End: 06-03-2023 CBC W Auto Differential panel - Blood CBC and Auto Differential Lab Routine Iron deficiency Expected: 06/02/2022 (Approximate), Expires: 06/03/2023 [facility] Work Phone: Comment on above: Expected: 06/02/2022 (Approximate), Expires: 06/03/2023 Start: 06-02-2022 End: 06-03-2023 Cobalamin (Vitamin B12) [Mass/volume] in Serum or Plasma Vitamin B12 Lab Routine Vitamin B12 deficiency Expected: 06/02/2022 (Approximate), Expires: 06/03/2023 [facility] Work Phone: Comment on above: Expected: 06/02/2022 (Approximate), Expires: 06/03/2023 Start: 06-02-2022 End: 06-03-2023 Comprehensive metabolic 2000 panel - Serum or Plasma Comprehensive Metabolic Panel Lab Routine Anemia, unspecified type Expected: 06/02/2022 (Approximate), Expires: 06/03/2023 [facility] Work Phone: Comment on above: Expected: 06/02/2022 (Approximate), Expires: 06/03/2023 Start: 06-02-2022 End: 06-03-2023 Hemoglobin A1c/Hemoglobin.total in Blood Hemoglobin A1C Lab Routine Type 2 diabetes mellitus without complication, without long-term current use of insulin ([facility]) Expected: 06/02/2022 (Approximate), Expires: 06/03/2023 [facility] Work Phone: Comment on above: Expected: 06/02/2022 (Approximate), Expires: 06/03/2023 Start: 06-02-2022 End: 06-03-2023 Iron and Iron binding capacity panel - Serum or Plasma Iron and TIBC Lab Routine Anemia, unspecified type Iron deficiency Expected: 06/02/2022 (Approximate), Expires: 06/03/2023 [facility] Work Phone: Comment on above: Expected: 06/02/2022 (Approximate), Expires: 06/03/2023 Start: 06-02-2022 End: 06-03-2023 Lipid 1996 panel - Serum or Plasma Lipid Panel Lab Routine Hyperlipidemia, unspecified hyperlipidemia type Expected: 06/02/2022 (Approximate), Expires: 06/03/2023 [facility] Work Phone: Comment on above: Expected: 06/02/2022 (Approximate), Expires: 06/03/2023 Start: 06-02-2022 End: 06-03-2023 TSH with reflex to Free T4 if abnormal TSH with reflex to Free T4 if abnormal Lab Routine Screening for thyroid disorder Expected: 06/02/2022 (Approximate), Expires: 06/03/2023 [facility] Work Phone: Comment on above: Expected: 06/02/2022 (Approximate), Expires: 06/03/2023 Start: 06-02-2022 End: 06-03-2023 XR Chest 2 Views [facility] Service Area Work Phone: Comment on above: Expected: 06/02/2022 , Expires: 06/03/2023 Start: 04-04-2022 COVID-19 VACCINE (5 - Moderna series) COVID-19 VACCINE (5 - Moderna series) [facility] Start: 02-05-2022 ADVANCE DIRECTIVE DISCUSSION ADVANCE DIRECTIVE DISCUSSION [facility] Start: 02-05-2022 DEPRESSION ASSESSMENT DEPRESSION ASS ESSMENT [facility] Start: 01-27-2022 COVID-19 Vaccine (4 - Booster for Moderna series) COVID-19 Vaccine (4 - Booster for Moderna series) [facility] Start: 01-27-2022 COVID-19 Vaccine (4 - Moderna series) COVID-19 Vaccine (4 - Moderna series) [facility] Start: 12-14-2021 FUV, Provider: Eitan Price, Status: Pen, Time: 8:30 AM FUV, Provider: Eitan Price, Status: Pen, Time: 8:30 AM [facility] Work [facility]: Start: 11-09-2021 FUV, Provider: Eitan Price, Status: Pen, Time: 3:30 PM FUV, Provider: Eitan Price, Status: Pen, Time: 3:30 PM [facility] Work Phone: Start: 10-06-2021 FUV, Provider: Etian Price, Status: Pen, Time: 4:00 PM FUV, Provider: Eitan Price, Status: Pen, Time: 4:00 PM [facility] Work Phone: Start: 10-06-2021 Influenza vaccination INFLUENZA (#1) [facility] Start: 09-22-2021 FUV, Provider: Eitan Prcie, Status: Pen, Time: 2:00 PM FUV, Provider: Eitan Price, Status: Pen, Time: 2:00 PM [facility] Work Phone: Start: 09-07-2021 FUV, Provider: Eitan Price, Status: Pen, Time: 2:00 PM FUV, Provider: Eitan Price, Status: Pen, Time: 2:00 PM [facility] Work Phone: Start: 06-20-2021 FUV, Provider: Eitan Price, Status: Pen, Time: 11:00 AM FUV, Provider: Eitan Price, Status: Pen, Time: 11:00 AM [facility] Work Phone: Start: 02-05-2021 ADVANCE DIRECTIVE DISCUSSION ADVANCE DIRECTIVE DISCUSSION [facility] Start: 02-05-2021 DEPRESSION ASSESSMENT DEPRESSION ASS ESSMENT [facility] Start: 12-17-2020 FUV, Provider: Eitan Price, Status: Pen, Time: 12:45 PM FUV, Provider: Eitan Price, Status: Pen, Time: 12:45 PM [facility] Work Phone: Start: 11-30-2020 FUV, Provider: Eitan Price, Status: Pen, Time: 2:00 PM FUV, Provider: Eitan Price, Status: Pen, Time: 2:00 PM [facility] Work Phone: Start: 10-07-2019 [facility] Start: 12-06-2018 Comprehensive metabo lic 2000 panel [facility] Work Phone: Start: 12-06-2018 HbA1c (Bld) [Mass fraction] Hemoglobin A1C [facility] Work Phone: Start: 12-06-2018 Lipid panel Lipid Panel [facility] Work Phone: Start: 07-05-2017 End: 07-05-2017 Appointment [facility] Work Phone: Start: 03-05-2017 End: 09-01-2016 *Hepatic Function Panel *Hepatic Function Panel [facility] Work Phone: Start: 03-05-2017 End: 09-01-2016 Lipid panel [AGGREGATE] *Lipid Profile CC PCP [facility] Work Phone: Start: 09-19-2016 End: 09-19-2016 Appointment Appointment [facility] Work Phone: Start: 09-19-2016 End: 09-19-2016 Cardiac Rehab [facility] Work Phone: Start: 09-19-2016 End: 09-19-2016 DJN DJN [facility] Work Phone: Start: 09-19-2016 End: 09-19-2016 Follow Up Appt 9 months Follow Up Appt 9 months [facility] Work Phone: Start: 08-05-2016 End: 08-31-2016 *Hepatic Function Panel *Hepatic Function Panel [facility] Work Phone: Start: 08-05-2016 End: 07-12-2016 Cardiac Rehab Card[facility] [address], [place], [address] [facility] Work Phone: Start: 08-05-2016 End: 08-31-2016 CBC W Auto Differential panel - Blood *CBC without Diff [facility] Work Phone: Start: 08-05-2016 End: 08-31-2016 Lipid panel [AGGREGATE] *Lipid Profile CC PCP [facility] Work Phone: Start: 07-11-2016 End: 07-11-2016 Appointment Appointment [facility] Work Phone: Start: 07-11-2016 End: 07-11-2016 DJN DJN [facility] Work Phone: Start: 07-11-2016 End: 07-11-2016 Follow Up Appt 2 months Follow Up Appt 2 months [facility] Work Phone: Start: 12-20-2010 RSV High Risk: (Elde rly (60+) or Population) (1 - 1-dose 75+ series) RSV High Risk: (Elderly (60+) or Population) (1 - 1-dose 75+ series) [facility] Start: 12-20-2010 RSV Vaccine (1 - 1-d ose 75+ series) RSV Vaccine (1 - 1-dose 75+ series) [facility] Start: 12-20-2000 ADVANCE DIRECTIVE DISCUSSION ADVANCE DIRECTIVE DISCUSSION [facility] Start: 12-20-2000 BONE DENSITY BONE DENSITY [facility] Start: 12-20-2000 PNEUMOCOCCAL: 65+ (1 - PCV) PNEUMOCOCCAL: 65+ (1 - PCV) [facility] Start: 12-20-2000 PNEUMOVAX AGE 65 AND OVER WITH 5YR LOOKBACK (#1) PNEUMOVAX AGE 65 AND OVER WITH 5YR LOOKBACK (#1) [facility] Start: 12-20-2000 Screening for osteoporosis Bone Density Screening [facility] Start: 1995 RSV patient s and/or patients aged 60+ years (1 - 1-dose 60+ series) RSV patients and/or patients aged 60+ years (1 - 1-dose 60+ series) [facility] Start: 12-20-1985 SHINGRIX VACCINE (1 of 2) MONTEMAYOR GRIX VACCINE (1 of 2) [facility] Start: 12-20-1985 Zoster Vaccines (1 of 2) Zoste r Vaccines (1 of 2) [facility] Start: 12-20-1980 DIABETES SCREEN DIABETES SCREEN [facility] Start: 12-20-1957 DTaP/Tdap/Td Vaccine s (1 - Tdap) DTaP/Tdap/Td Vaccines (1 - Tdap) [facility] Start: 12-20-1954 DTaP/Tdap/Td Vaccine s (1 - Tdap) DTaP/Tdap/Td Vaccines (1 - Tdap) [facility] Start: 12-20-1954 Urine microalbumin profile DTAP,TDAP,TD (1 - Tdap) [facility] Start: 12-20-1954 Urine screening for protein Diabetes: Urine Protein Screening [facility] Start: 12-20-1953 Anxiety Screening Anxiety Screening [facility] Start: 12-20-1953 Depression Screening Depression Scre ening [facility] Start: 12-20-1945 Diabetic foot examination Diabetes: Foot Exam [facility] Start: 12-20-1945 Glaucoma screening Diabetes: R etinopathy Screening [facility] Start: 12-20-1945 Ophthalmic examinati on and evaluation Diabetes: Retinopathy Screening [facility] Start: 12-20-1945 Preventive dental service Diabetes: Dental Exam [facility] Start: 1935 Hemoglobin A1c measurement Diabetes: Hemoglobin A1C [facility] Start: 1935 Hepatitis B Vaccines (1 of 3 - 3-dose series) Hepatitis B Vaccines (1 of 3 - 3-dose series) [facility] Start: 1935 Lipid panel [facility] Panel [facility] Start: 1935 Medicare Annual Well ness Visit Medicare Annual Wellness Visit (AWV) [facility] Start: 1935 Screening for osteoporosis Bone Density Scan [facility] End: 12-26-2022 ECG 12 lead [facility] Service Area Work Phone: Comment on above: Once for 1 Occurrenc es starting 12/26/2022 until 12/26/2022 Patient Education [facility] Work Phone: [facility] NEGATED: Highlighted row has been ruled out! Planned Goals not documented [facility] [facility]- Work Phone: Immunizations Immunization Date Immunization Notes Care Provider Fa cility 12-02-2022 Flu vaccine, quadrivalent, high-dose, preservative free, age 65y+ (FLUZONE) Corbin Bryan MD Work Phone: [facility] 12-02-2022 influenza virus vacc ine, unspecified formulation Corbin Bryan MD Work Phone: [facility] Work Phone: 11-29-2022 tetanus toxoid, redu karol diphtheria toxoid, and acellular pertussis vaccine, adsorbed Corbin Bryan MD Work Phone: [facility] 12-12-2021 Fluzone High-Dose Quadrivalent 0.7 ML Intramuscular Suspension Prefilled Syringe Eitan Price Work Phone: [facility] Work Phone: 12-02-2021 Moderna COVID-19 Biv al Booster 50 MCG/0.5ML Intramuscular Suspension Eitan Abbasi Leeannsofie Work Phone: [facility] Work Phone: 12-15-2020 Fluzone High-Dose Quadrivalent 0.7 ML Intramuscular Suspension Prefilled Syringe Eitan Abbasi Leeannsofie Work Phone: [facility] Work Phone: 11-29-2020 Moderna COVID-19 Vac cine 100 MCG/0.5ML Intramuscular Suspension Eitan Abbasi Leeannsofie Work Phone: [facility] Work Phone: 04-01-2020 Moderna COVID-19 Vac cine 100 MCG/0.5ML Intramuscular Suspension Eitan Abbasi Leeannsofie Work Phone: [facility] Work Phone: 03-04-2020 Moderna COVID-19 Vac cine 100 MCG/0.5ML Intramuscular Suspension Eitan Abbasi Leeannsofie Work Phone: [facility] Work Phone: 11-12-2019 Fluad Quadrivalent 0 .5 ML Intramuscular Prefilled Syringe Eitan Price Work Phone: [facility] Work Phone: 12-23-2018 pneumococcal polysaccharide vaccine, 23 valent Tori Roblero CREDIT CARD ANALYST-INFORMATION ENGINEER Work Phone: [facility] Work Phone: 12-25-2017 influenza virus vacc ine, unspecified formulation Eitan Price Work Phone: [facility] Work Phone: Comment on above: Series: 12-25-2017 influenza, seasonal, injectable [facility] Work Phone: 12-07-[address] Eitan Price Work Phone: [facility] 12-07-2015 influenza, seasonal, injectable, preservative free Tori Roblero CREDIT CARD ANALYST-INFORMATION ENGINEER Work Phone: [facility] Work Phone: 11-06-2015 pneumococcal conjuga te vaccine, 13 valent Eitan Price [facility] Work Phone: Comment on above: Series: 12-30-2012 influenza, seasonal, injectable [facility] Work Phone: Comment on above: Series: 01-01-2012 influenza, seasonal, injectable [facility] Work Phone: Comment on above: Series: Payers Date Payer Category Payer Self-pay [id number] 2022 Medicare (Managed Care) [facility] MEDICARE [id number] 2018 Medicare [facility] PPO [id number] 2018- PPO [id number] 2018 Medicare [id number] 2018 Medicare [id number] 2011 [facility] Care [facility] [id number] 2011 Unknown 2011 Unknown [id number] 1935 Unknown [id number] 9.2.356 1935 Unknown [id number] [id number] 9.2.356 1935 Unknown [id number] [id number] 9.2.1242 1935 Unknown [id number] [id number] 9.2.1247 1935 Unknown [id number] 2..840.1.615813.3.57 9.2.124 1935 Unknown [id number] 2..840.1.340305.3.57 9.2.1247 1935 Unknown [id number] 2.840.1.567623.3.57 9.2.124 1935 Unknown [id number] 2.840.1.702909.3.57 9.2.124 1935 Unknown [id number] 2.840.1.402362.3.57 9.2.124 1935 Unknown [id number] 2.840.1.980640.3.57 9.2.124 1935 Unknown [id number] .840.1.868582.3.57 9.2.124 1935 Unknown [id number] .840.1.340896.3.57 9.2.124 1935 Unknown [id number] 2.840.1.142469.3.57 9.2.124 1935 Unknown [id number] .840.1.715316.3.57 9.2.1244 Medicare [id number] Private Health Insurance [id number] Private Health Insurance [facility] [id number] Unknown [id number] [id number] 9.2.462 Unknown [id number] [id number] 9.2.462 Unknown [id number] [id number] 9.2.462 Unknown [id number] [id number] 9.2.462 Unknown [id number] [id number] 9.2.462 Unknown [id number] [id number] 9.2.462 Social History Date Type Detail Facility Tobacco smoking status NHIS Unknown if ever smoked [facility] Work Phone: Start: 1935 Sex Assigned At Not on file [facility] Start: 01-01-2022 End: 11-28-2023 Exposure to SARS-CoV-2 (event) Not sure [facility] Start: 06-02-2022 End: 11-30-2022 Never a smoker Never a smoker [facility] Start: 12-06-2022 Tobacco smoking status NHIS Tobacco smoking consumption unknown [facility] Start: 06-01-2022 End: 08-18-2024 Tobacco smoking status WAIS Never smoked tobacco [facility] Start: 06-01-2022 End: 11-13-2023 Tobacco use and exposure Smokeless tobacco non-user [facility] Work Phone: Start: 06-02-2022 End: 10-03-2023 Alcohol intake Ex-drinker (finding) [facility] Work Phone: Start: 06-02-2022 End: 11-30-2022 Tobacco use panel [facility] National Score (1-100), lower number is lower risk [address] [place] [address] How often to you hav e a drink containing alcohol? Never [facility] In the past 12 months, was there a time when you were not able to pay the mortgage or rent on time? No [facility] Work Phone: Start: 06-29-2016 None [facility] Start: 06-29-2016 Spouse/ Signif icant Other [facility] Start: 06-29-2016 Non-smoker [facility] Start: 1935 Sex Assigned At Female W [facility] (I/We) worried whether (my/our) food would run out before (I/we) got money to buy more. Never true [facility] Work Phone: Start: 12-04-2015 Alcohol intake Current non-dr funeral home manager of alcohol (finding) [facility] NEGATED: Highlighted row - - [facility] Work Phone: Functional Status Date Assessment Result Facility NEGATED: Highlighted row Functional performance Functional status health issues are not documented Disease [facility] Work Phone: Mental Status Date Assessment Result Facility 08-18-2024 Cognitive function Level Of Cons ciousness Awake;Alert;Appropriate ;Follows Commands [facility] Work Phone: 08-17-2024 Cognitive function Voice/Name [facility] Work Phone: NEGATED: Highlighted row Cognitive function [Interpretation] Cognitive status health issues are not documented Disease [facility] Work Phone: Clinical Notes 06-23-2016 to 08-18-2024 Note Date & Type Note Facility 08-18-2024 Discharge summary [facility] 08-18-2024 Discharge summary Note Date/Time August 18, 2024 3:59pm [facility] Medical Records Department [address] [place] [id number] Emergency Department Summary 08/18/24 MR#: [id number] Acct: [id number] Name: INGRID DONALD Rep #:[id number] : 1935 88 From: Kal Fan MD PCP: Dr. Eitan Price MD Status:REG ER Location: ED HPI History of Present Illness Chief Complaint: Abn Labs Narrative Narrative: 88-year-old female past medical history of aortic stenosis, coronary artery disease, atrial fibrillation presents at the direction of her primary care provider, Dr. Eitan Price because of anemia. It was reported by her family thatverónica had blood work on Sunday that was routine blood work. This was 3 days ago. They called her today and got the results and told her that her hemoglobin was 7.0 and that she needed to go to the emergency department. However, they were unaware that the patient was seen in the emergency department last night for chest pain related to anxiety and had blood work drawn again last night. She denies any black stool, no bleeding diathesis. She states that for quite some time she has been short of breath with dyspnea on exertion and occasionally fatigued. She does take a blood thinner for her atrial fibrillation but denies any hematemesis or other symptoms. Today, she states she feels well. [facility] Medical History Subdural hematoma, acute Coronary artery disease Aortic stenosis Anemia Paroxysmal atrial fibrillation New onset atrial fibrillation Dyspnea on exertion Atherosclerotic heart disease [place] coronary artery w/angina pectoris Type 2 diabetes mellitus without complications Hematoma of groin Obesity GERD (gastroesophageal reflux disease) Hiatal hernia History of colon cancer Asthma Depression Atherosclerotic heart disease of [place] coronary artery without angina pectoris Hypertension Nonsustained ventricular tachycardia Non-STEMI (non-ST elevated myocardial infarction) Hyperlipemia Home Medications ?Medication ?Instructions ?Recorded ?Last Taken ?Type cyanocobalamin (vitamin B-12) 1,000 mcg PO DAILY 06/2208/18/24 History 1,000 mcg tablet montelukast 10 mg tablet 10 mg PO QHS 06/22/16 History omeprazole 20 mg capsule,delayed 20 mg PO DAILY 08/18/24 History release losartan 100 mg tablet 100 mg PO DAILY 12/14/21 History apixaban 2.5 mg tablet (Eliquis) 2.5 mg PO BID 4 08/18/24 History carvedilol 25 mg tablet 25 mg PO QDAY 07/26/2308/18 History aspirin 81 mg tablet,delayed 81 mg PO QDAY 11/06/23 History release (Adult Aspirin Regimen) atorvastatin 40 mg tablet 40 mg PO QDAY #90 tabs 11/0508/18/24 Rx fluoxetine 20 mg capsule 20 mg PO QDAY 11/06/2308/18 History amlodipine 5 mg tablet 5 mg PO DAILY #90 tabs 01/2708/18/24 Rx Allergy/AdvReac Type Severity Reaction Status Date / Time morphine Allergy Mild Hives Verified 08/18/24 15:34 Family History Mother CAD (coronary artery disease) Father CAD (coronary artery disease) Brother CAD (coronary artery disease) Sister CAD (coronary artery disease) Surgical History History of right and left heart catheterization (09/19/19) History of cholecystectomy (~2011) History of colectomy (~04/2001) History of History of coronary artery stent placement (06/23/16) Social History Smoking Status: Never smoker alcohol intake: never substance use type: does not use caffeine: Yes Type: coffee Number of servings: 4 ROS ROS ED ROS Narrative Review of systems positive for chronic shortness of breath and dyspnea on exertion with fatigue. No current chest pain, no shortness of breath, no black stool, no hematemesis, denies other bleeding diathesis. EXAM Physical Exam Narrative Exam Narrative: Afebrile. Vital signs noted. Nontoxic-appearing. Cardiovascular examination feels regular rate. Lungs are clear to auscultation bilaterally. Abdomen is soft, nontender, without guarding or rebound. No subconjunctival pallor, no central cyanosis. Const Vital Signs: 08/18/24 14:28 08/18/24 15:32 Temperature 97.8 F Temperature Source Oral Pulse Rate 78 Respiratory Rate 18 Respiratory Effort Short of Breath Blood Pressure 148/81 H Blood Pressure Mean 103 Pulse Ox 95 Oxygen Delivery Method Room Air MDM MDM MDM Narrative Medical decision making narrative: Differential diagnosis includes but not limited to anemia requiring transfusion versus chronic anemia/anemia of chronic disease. At lengthy discussion with thepatient and her family/friend. She just had a chest pain workup which they thought was related to anxiety as her is recently . I reviewed her hemoglobin/hematocrit/CBC from last evening and she had a hemoglobin of 7.5. I will repeat the CBC to ensure that there is no precipitous dropping. I reviewed her laboratory work from today and she has normal white count of 8.2 and hemoglobin 7.5, stable when compared to yesterday's laboratory work. I do not feel that she requires emergent transfusion. At this point in time, she feels well and is motivated for discharge. She has an appointment with her primary care provider on Sunday, 2 days from now. She may need to restart iron pills, or she may require outpatient transfusion. Regardless I do feel shecan be discharged safely home with follow-up. Return instructions reviewed. Patient and family agreeable to the plan. Disposition is discharged home in stable condition. History & Record Review Discussion w/independent historian: Patient and Family Additional record(s) reviewed:: Prior labs (Hemoglobin 7.5 yesterday, no significant change.) Lab Data Attestation: I reviewed the patient's lab results. Labs: Laboratory Results - last 24 hr 08/18/24 15:35 WBC 8.2 RBC 3.26 L Hgb 7.5 L Hct 26.0 L MCV 79.8 L MCH 23.0 L MCHC 28.8 L RDW Std Deviation 49.8 H RDW Coeff of Angelita 17.3 H Plt Count 233 MPV 10.9 Immature Gran % (Auto) 0.700 Neut % (Auto) 62.9 Lymph % (Auto) 20.8 [place] % (Auto) 11.4 H Eos % (Auto) 3.8 Baso % (Auto) 0.4 Absolute Neuts (auto) 5.2 Absolute Lymphs (auto) 1.71 Nucleated RBC % 0 Discharge Plan Triage Chief Complaint: Abn Labs ED Provider: Kal Fan Dx/Rx/DC Orders Clinical Impression: Anemia, Fatigue Instructions: ED Anemia, Type Not Specified (Adult) Prescriptions: No Action omeprazole 20 mg capsule,delayed release(DR/EC) 20 mg PO DAILY losartan 100 mg tablet 100 mg PO DAILY carvedilol 25 mg tablet 25 mg PO QDAY Eliquis 2.5 mg tablet 2.5 mg PO BID aspirin [Adult Aspirin Regimen] 81 mg tablet,delayed release (DR/EC) 81 mg PO QDAY fluoxetine 20 mg capsule 20 mg PO QDAY atorvastatin 40 mg tablet 40 mg PO QDAY Qty: 90 3RF cyanocobalamin (vitamin B-12) 1,000 MCG tablet 1,000 mcg PO DAILY Patient Comments: supplement montelukast 10 MG tablet 10 mg PO QHS Patient Comments: allergies amlodipine 5 mg tablet 5 mg PO DAILY Qty: 90 3RF Primary Care Provider: Eitan Price Referrals: Eitan Price MD [Primary Care Provider] - Keep [facility] appointment Activity Restrictions/Additional Instructions: Return to the emergency department with increasing shortness of breath, chest pain, black stool, new or worsening symptoms. Follow-up with your primary care provider as scheduled on Sunday. You can tell him that your hemoglobin is 7.5 both yesterday and today. He may need to start you on iron orally again. Print Language: Mohawk Disposition Disposition: Home, Self Care What to do if you have Problems For any increased pain, shortness of breath, bleeding, nausea or vomiting, chestpain, or any unexpected problems, contact your Primary Care Provider. Call [facility] ([phone]) or report to the closest Emergency Room. Call 911 if necessary. 08/18/24 1551 <Electronically signed by Kal Fan MD> Cosigner Signature (if applicable): CC: Dr. Eitan Price MD ~ Signed [facility] Work Phone: [phone]) 453-258907-13-2025 Radiology Diagnostic study note [facility] Imaging Services [address] [place] [id number] Chest 1 View (Portable) MR#: [id number] Acct: [id number] Name: INGRID DONALD Rep #: [id number] : 1935 F 88 From: Petra Obregon MD PCP: Dr. Eitan Price MD Status: PRE ER Study:Chest 1 View (Portable) Date of Exam: 08/17/24 Exam# [id number] Ordering Dr: Teena Rehman DO PROCEDURE: CHEST 1 VIEW (PORTABLE) 08/17/2024 REASON FOR EXAM: CHEST PAIN TECHNIQUE: Frontal view of the chest. COMPARISON: Chest radiograph dated 09/09/2019 FINDINGS: Hardware: None Mediastinum: Cardiac and mediastinal contours are prominent, unchanged. Aortic atherosclerosis. There is suggestion of a hiatal hernia projecting over the lower mediastinum. Lungs: Interstitial markings are increased. No focal consolidation. Bones: Degenerative changes are identified within the thoracic spine. RAD/Chest 1 View (Portable) IMPRESSION: 1. Increased interstitial markings, as may be seen with pulmonary edema or atypical/viral infection. 2. Probable hiatal hernia. Reading Location: [id number] CC: Dr. Eitan Price MD; Dr. Shakeel Rehman DO ~ Front End Web Developer: Signed [facility]07-13-2025 Hospital Discharge instructionsAdditional Instructions Return to the emergency department with increasing shortness of breath, chest pain, black stool, new or worsening symptoms. Follow-up with your primary care provider as scheduled on Sunday. You can tell him that your hemoglobin is 7.5 both yesterday and today. He may need to start you on iron orally again.[facility] Work Phone: 1([phone]) 698-809810-23-2024 History of Present illness Narrative* Eiatn Price MD - 11/28/2023 10:00 AM EDT Subjective Patient ID: Ingrid Donald is a [...] 6 mos w/ [facility] Work Phone: [phone] 820-192810-08-2024 NoteHNO ID: [id number] Author: DONYA FARIA LPN Service: ? Author Type: LICENSED NURSE Type: Progress Notes Filed: 11/13/2023 10:41 Note Text: Injection prepared per order for Dr. Gibbs and handed directly to him. Injection site: asaf knees [facility] History of Present illness Narrative* Donya Faria LPN - 11/13/2023 9:46 AM EDT Injection prepared per order for Dr. Gibbs and handed directly to him. Injection site: aasf knees Donya Faria LPN * Mark Vazquez MD - 11/13/2023 9:43 AM EDTAssociated Order(s): Large Joint Arthro/Inj: bilateral knee joints Chief Complaint: Bilateral knee pain Consuting Physician: History: Ingrid is a 87 year old female who presents with a longstanding history of bilateral kneepain. She denies any traumatic history but more [...] No pain in the hip, back or groinregion. No numbness and tingling down the extremity. No fevers, chills, night sweats or other constitutional symptoms. Occasional swelling is experienced. There are no symptoms of infection or deep venous thrombosis. She quantitates the pain as 5/10. She reports that her ADL s have been affected adv ersely secondary to her knee pain. Review Of [...] stability with varus and valgus stress at 0and 30 degrees. No increase in ER is seen at 30 or 90 degrees. Full ROM of both hips and ankles arenoted. She has 5/5 motor strength with downgoing Babinski s and symmetric reflexes. Good pulses andcap refill are seen. Gross sensation intact. X-ray [...] option consisting of NSAID s and a physicaltherapy program emphasizing quadricep strengthening, stretching and ROM. [...] basis. Mark Vazquez MD [facility]24 NoteHNO ID: [id number] Author: MARK VAZQUEZ MD Service: ? Author [...] return for follow-up in prn basis. Mark Vazquez, [facility]08-28-2024 History of Present illness Narrative* Eitan Price MD - 10/03/2023 3:30 PM EDT Subjective Patient ID: Ingrid Donald is a [...] labs If not, ov documented in [facility] Work Phone: 1([phone]) 645-649605-20-2024 History of Present illness Narrative* Eitan Price MD - 06/25/2023 2:30 PM EDT Subjective Reason for Visit: Ingrid Donald is an 87 y.o. female here for a Medicare Wellness visit. Past Medical, Surgical, and Family History reviewed and updated in chart. Reviewed all medications by prescribing practitioner or clinical pharmacist (such as prescriptions,OTCs, herbal therapies and supplements) and documented in [...] 3 mos w/ labsb [facility] Work Phone: 1([phone]) 683-817511-21-2023 History of Present illness Narrative* Erica Thompson, REN-INFORMATION ENGINEER - 12/26/2022 10:30 AM EST Ingrid Donald is here today in follow up for SDH and to review images. To review, she was initially evaluated on 11/30/2022, during admission at [facility] after mechanical fall off curb, falling onto face. She was on Eliquis at the time, for Afib. She denied headache at the time and reported that she lived in [place], [place], and was in the area for [...] and compared with images on 11/29/2022. We discussedresolution of SDH and okay to restart Eliquis for Afib. She agrees to follow up PRN. TOTAL TIME: Time preparing / completing chart: 7 MIN Time in face to face contact with patient, including counseling: > 15 MIN VINNY Berg documented in this encounterUnWVUMed[facility] Work Phone: 1([phone] 395-379211-21-2023 Instructions* Patient Instructions* VINNY Berg - 12/26/2022 10:30 AM EST Your subdural hematoma has resolved. You may restart your blood thinners today. [facility] Work Phone: [phone] 940-132911-08-2023 History of Present illness Narrative* Eitan Price MD - 12/13/2022 3:00 PM EST Subjective Patient ID: Ingrid Donald is a [...] visit: Subdural hemorrhage (CMS/HCC) Nonsustained ventricular tachycardia (CMS/HCC) Non-ST elevation (NSTEMI) myocardial infarction (CMS/HCC) Type 2 diabetes mellitus without complication, without long-term current use of insulin (CMS/HCC) Paroxysmal atrial fibrillation (CMS/HCC) Hypertension, unspecified type Class 2 severe obesity due to excess calories with serious comorbidity and body mass index (BMI) of37.0 to 37.9 in adult (CMS/HCC) Hyperlipidemia, unspecified hyperlipidemia type Stage 3a chronic kidney disease (CMS/HCC) CKD (chronic kidney disease), stage II ASHD (arteriosclerotic heart disease) Acute non-ST elevation myocardial infarction (NSTEMI) (CMS/HCC) Ns 12/26 Cardio r/s amlodipine R/s citalopram Off carvedilol, asa, eliquis, furosemide, bupropion documented in this [facility] Work Phone: [phone] 505-588910-28-2023 History of Present illness Narrative* Harmeet Sweet MD PhD - 12/02/2022 10:41 AM EDT Ingrid Donald is a 86 y.o. female [...] perspective and can follow-up with her established corporate learning consultant in [place], [place]. 2. Hypertension: Blood pressure is better following IV hydralazine and the patient is now on nifedipine. December 02, 2022 Patient is fairly stable from cardiac standpoint. Bradycardia has resolved. Continue with nifedipine and losartan for blood pressure control. HoldingAV evi blocking agents for now. I will defer the decision as to when to resume Eliquis to her outpatient corporate learning consultant in [place] that patient agrees to follow-up with in the next week or 2. Okay to discharge from cardiac standpoint Thank you for the consult. We will sign off. Please contact cardiology consult service with any additional questions. * Leobardo Garrison, DO - 12/02/2022 9:57 AM EDT Ingrid Donald is a 86 y.o. female [...] brain 11/29/2022 at 4:24 p.m.. ACCESSION NUMBER(S): [id number] ORDERING CLINICIAN: FLORENCE BORGES TECHNIQUE: Axial noncontrast [...] Michael Sharp 11/29/2022 11:18 PM Dictation workstation: [id number] CT head W O contrast trauma protocol, CT cervical spine wo IV contrast, CT maxillofacial bones wo IV contrast Narrative: Interpreted By: Forrest Drew, STUDY: CT FACIAL BONES WO IV CONTRAST; CT HEAD W/O CONTRAST TRAUMA PROTOCOL; CT CERVICAL SPINE WO IV CONTRAST; 11/29/2022 4:37 pm INDICATION: Signs/Symptoms:fall, R frontal bone ecchymosis; Signs/Symptoms:Fall, right forehead hematoma, on Eliquis. COMPARISON: None. ACCESSION NUMBER(S): [id number]; [id number]; [id number] ORDERING CLINICIAN: CORBIN BORGES TECHNIQUE: Noncontrast axial [...] Forrest Drew 11/29/2022 4:54 PM Dictation workstation: [id number] Physical Exam Vitals reviewed. Constitutional: General: She [...] home amlodipine upon discharge. Leobardo Garrison DO * Carlos Benitez MD - 12/02/2022 8:53 AM EDT Trauma Surgery Attending Note My Acute Care [...] Follow-up with trauma surgery service as needed * Domenica Walton DO - 12/01/2022 9:52 PM EDT Ingrid Donadl is a 86 y.o. female [...] stepping down from a curb at a r estaurant. Patient was initially admitted to ICU for SDH and frequent neurochecks. She did briefly require Cardene drip for hypertensive urgency but then was transferred to medical floor. She returnsto the ICU given hypertensive urgency with SBP [...] time calculation. Billing Provider Time: 35 minutes * Fatuma Starr DO - 12/01/2022 3:59 PM EDT Ingrid Donald is a 86 y.o. female [...] The patient suffered a fall yesterday and struckher head on the ground. She denies having any dizziness or syncope prior to the fall, but states that she tripped on a curb. She has established cardiology care in [facility] and has had no recent cardiac symptoms. [...] perspective and can follow-up with her established corporate learning consultant in [place]. 2. Hypertension: Blood pressure is better following IV hydralazine and the patient is now on nifedipine. Fatuma Starr DO * MICAELA Rendon - 12/01/2022 11:24 AM EDT This SW called TONY Stanley listed in pt's chart to discuss IMM rights. Lizeth has no concerns at thistime, [place] contact info presented over the phone. SW relayed that pt may be dc'd today or tomorrow pending BP per the TCC's message. Lizeth had no further questions at this time. MICAELA DARLING * Rita Bowen RN - 12/01/2022 10:49 AM EDT Ingrid Donald is a 86 y.o. female on day 2 of admission presenting with Subdural hemorrhage (CMS/HCC). Pt possible discharge later today vs tomorrow pending BP. Pt is home with no needs. Pt last documented BP was 185/79. Will request SW to give IMM. Rita Bowen RN * Viki Edmond, CREDIT CARD ANALYST-INFORMATION ENGINEER - 12/01/2022 8:06 AM EDT Ingrid Donald is a 86 y.o. female [...] F), resp. rate 15, height 1.499 m (4'11.02), weight 84 kg (185 lb 3 oz), [...] for HTN, HLD, Afib, CAD/NSTEMI s/p stents, chronicanemia, GERD, DMT2, mitral regurgitation, colon cancer, CHF, and MDD who presented to [facility] ED on 11/29 as an HIA following a mechanical fall and was found to have a SDH. Pt admitted to ICU under trauma surgery with consult to NSGY, back sizer, and cardiology. List of Injuries: SDH, 2.8 [...] professional and overall care of this patient. Viki Edmond APRN-LOS * Bobby Kolb, PT - 11/30/2022 4:27 PM EDT Physical Therapy Physical Therapy Evaluation Patient Name: [...] Prior Function Per Pt/Caregiver Report Level of [place]: Independent with ADLs and functional transfers, Independent [...] 1: (50 ft) Extremity/Trunk Assessments: Outcome Measures: [facility] Basic Mobility Turning from your back to [...] documentation found. Education Comments No comments found. * Jose Parker MD - 11/30/2022 12:12 PM EDT Ingrid Donald is a 86 y.o. female [...] brain 11/29/2022 at 4:24 p.m.. ACCESSION NUMBER(S): [id number] ORDERING CLINICIAN: FLORENCE BORGES TECHNIQUE: Axial noncontrast [...] Michael Sharp 11/29/2022 11:18 PM Dictation workstation: [id number] Assessment/Plan Principal Problem: Subdural hemorrhage (CMS/HCC) Patient is a 86 y.o. female with PMH significant for HTN, HLD, Afib, CAD/NSTEMI s/p stents, chronicanemia, GERD, DMT2, mitral regurgitation, colon cancer, CHF, and MDD who presented to [facility] ED on 11/29 as an HIA following a mechanical fall and was found to have a SDH. Pt admitted to ICU under trauma surgery with consult to NSGY, back sizer, and cardiology. List of Injuries: SDH, 2.8 [...] the alexander and critical portions of the historyand physical exam I was physically present for [...] persisted. Cardiology input appreciated. Continue current management * Debo Wander Farah - 11/29/2022 7:39 PM EDT Care transitions assessment completed via bedside with patient. TCC introduced self and explained role. Demographics verified. Patient from home with spouse. Patient is primary caregiver for spouse. Patient states son and DIL are with spouse now. 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 Denies use of assistive devices. Denies SW [...] to pay the mortgage or rent on time?N In the last 12 months, how many places have you lived? 1 In the last 12 months, was there a time when you did not have a steady place to sleep or slept in ashelter (including now)? N Transportation Needs In the past 12 months, has lack of transportation kept you from medical appointments or from getting medications? no In the past 12 months, has lack of transportation kept you from meetings, work, or from getting things needed for daily living? No Debo Farah [employer] BACK FEEDER TCC * Celi Duarte CPhT - 11/29/2022 4:58 PM EDT Pharmacy Medication History Review Ingrid Donald is a 86 y.o. female admitted for No Principal Problem: There is no principal problem currently on the Problem List. Please update the Problem List and refresh.. Pharmacy reviewed the patient's [id number] medications and allergies for accuracy. The list below reflectives the updated NAIL ARTIST list. Please review each medication in order reconciliation for additional clarification and justification. (Not in a hospital admission) The list below reflectives the updated allergy list. Please review each documented allergy for additional clarification and justification. Allergies Reviewed by Celi Duarte CPhT on 11/29/2022 Severity Reactions Comments Morphine Medium Itching Ibuprofen Low Itching Below are additional concerns with the patient's NAIL ARTIST list. See NAIL ARTIST med list Celi Duarte CPhT documented in this [facility] Work Phone: 1(745) 330-491910-28-2023 Hospital Note* Hospital Course - Viki Edmond APRN-LOS - 12/02/2022 10:35 AM EDT Patient is a 86 y.o. female with PMH significant for HTN, HLD, Afib, CAD/NSTEMI s/p stents, chronicanemia, GERD, DMT2, mitral regurgitation, colon cancer, CHF, and MDD who presented to [facility] ED on 11/29 as an HIA following a mechanical fall and was found to have a SDH. Pt admitted to ICU under trauma surgery with consult to NSGY, back sizer, and cardiology. List of Injuries: SDH, 2.8 [...] up for reeval. Evaluated by cardiology with recommendationsfor close follow up with outpt corporate learning consultant. Patient will hold home Eliquis until cleared by NSGY at follow up. Evaluated by PT/OT, no new needs identified. [facility] Work Phone: 1(175) 318-240410-28-2023 Hospital course Narrative* VINNY Dewitt - 12/02/2022 10:35 AM EDT Discharge Diagnosis Subdural hemorrhage (CMS/HCC) Issues Requiring Follow-Up SDH, HTN, bradycardia Test Results Pending At Discharge Pending Labs No current pending labs. Hospital Course Patient is a 86 y.o. female with PMH significant for HTN, HLD, Afib, CAD/NSTEMI s/p stents, chronicanemia, GERD, DMT2, mitral regurgitation, colon cancer, CHF, and MDD who presented to [facility] ED on 11/29 as an HIA following a mechanical fall and was found to have a SDH. Pt admitted to ICU under trauma surgery with consult to NSGY, back sizer, and cardiology. List of Injuries: SDH, 2.8 [...] up for reeval. Evaluated by cardiology with recommendationsfor close follow up with outpt corporate learning consultant. Patient will hold home Eliquis until cleared [...] Center 12/13/2022 3:00 PM Eitan Price MD [id number] [facility] Viki Edmond APRNBABITA documented in this [facility] Work Phone: [phone] 601-718010-28-2023 Miscellaneous Notes* Hospital Course - VINNY Dewitt - 12/02/2022 10:35 AM EDT Patient is a 86 y.o. female with PMH significant for HTN, HLD, Afib, CAD/NSTEMI s/p stents, chronicanemia, GERD, DMT2, mitral regurgitation, colon cancer, CHF, and MDD who presented to [facility] ED on 11/29 as an HIA following a mechanical fall and was found to have a SDH. Pt admitted to ICU under trauma surgery with consult to NSGY, back sizer, and cardiology. List of Injuries: SDH, 2.8 [...] up for reeval. Evaluated by cardiology with recommendationsfor close follow up with outpt corporate learning consultant. Patient will hold home Eliquis until cleared by NSGY at follow up. Evaluated by PT/OT, no new needs identified. * Care Plan - Los Jean RN - 12/02/2022 7:24 AM EDT Problem: Nutrition Goal: Less than 5 days [...] for the shift include Maintain blood pressure. * Care Plan - Los Jean RN - 12/01/2022 7:55 AM EDT The patient's goals for the shift include [...] education by end of shift Outcome: Progressing * Care Plan - Bobby Jiménez DO - 11/30/2022 12:41 PM EDT Ingrid Donald is stable and no longer requiring ICU care. She is under the care of general surgery and is to be transferred to the medical floor for further management. We will be signing off from her care. Bobby Jiménez DO, PhD Internal Medicine PGY1 * Care Plan - Gagandeep Key RN - 11/30/2022 6:20 AM EDT The patient's goals for the shift include Remain safe and free from injury throughout shift. The clinical goals for the shift include Maintain SBP 160> and >100 Over the shift, the patient did not make progress toward the following goals. Barriers to progression include . Recommendations to address these barriers include . documented in this [facility] Work Phone: [phone] Hospital Discharge instructions* Discharge Instructions* VINNY Dewitt - 12/02/2022 10:29 AM EDT Do not take your blood thinner until you follow up with neurosurgery in 2-3 weeks. [facility] Phone: [phone]) 221-740810-28-2023 Plan of care note* Care Plan - Los Jean RN - 12/02/2022 7:24 AM EDT Problem: Nutrition Goal: Less than 5 days [...] for the shift include Maintain blood pressure. [facility]10-27-2023 Consult note* Leobardo Garrison DO - 12/01/2022 5:41 PM EDT Consults Reason For Consult Medical management, HTN History Of Present Illness Ingrid Donald is a 86 y.o. female presenting with pmhx of CKD II-III, NIDDM, Mild intermittent asthma, DLP, pAfib, CAD, HTN, depression who presents to the ER after a mechanical fall. Patient foundto have SDH on imaging. Trauma surgery consulted. [...] medical history of Acute renal failure (ARF) ([facility]), Anemia, Congestive heart failure (CHF) ([facility]), Depression, Diverticulitis of large intestine without perforation or abscess without bleeding (12/14/2015), MELLO (dyspnea on exertion), Essential (primary) hypertension (12/16/2012), Hyperlipidemia, unspecified (12/16/2012), Localized edema (09/07/2021), Malignant neoplasm of colon, unspecified ([facility]), Obstructive sleep apnea (adult) (pediatric), [...] disorders, Personal history of other specified conditions (2014), Personal history of other specified conditions (06/03/2014), [...] 11/30/2022 Assessment/Plan Medications prior to hospitalization 1.) [facility] fall with head trauma and [...] proph contraindicated with SDH Leobardo Garrison DO [facility] Work Phone: [phone] Consult note* Leobardo Garrison DO - 12/01/2022 5:41 PM EDT Consults Reason For Consult Medical management, HTN History Of Present Illness Ingrid Donald is a 86 y.o. female presenting with pmhx of CKD II-III, NIDDM, Mild intermittent asthma, DLP, pAfib, CAD, HTN, depression who presents to the ER after a mechanical fall. Patient foundto have SDH on imaging. Trauma surgery consulted. [...] edema (09/07/2021), Malignant neoplasm of colon, unspecified ([facility]), Obstructive sleep apnea (adult) (pediatric), [...] disorders, Personal history of other specified conditions (2014), Personal history of other specified conditions (06/03/2014), [...] 11/30/2022 Assessment/Plan [facility] [...] proph contraindicated with SDH Leobardo Garrison DO * Negin Wing, RD - 11/30/2022 7:05 PM EDT Nutrition Note Reason for Assessment Reason for [...] Nutritional Needs: Total Energy Estimated Needs (kCal): (6969-1340) Method for Estimating Needs: 26-30 malvin kg [...] 3-8 days Follow up Comment: 12/07 MZ * Fatuma Starr DO - 11/30/2022 12:09 PM EDTAssociated Order(s): Inpatient consult to Cardiology Inpatient consult to Cardiology Consult performed by: Fatuma Starr DO Consult ordered by: Mariah Burgos APRN-LOS Reason for consult: Bradycardia History Of Present Illness: This is an 86-year-old female with a history of paroxysmal atrial fibrillation. She is being seen today in consultation for evaluation of bradycardia. The patient suffered a fall yesterday and struckher head on the ground. She denies having any dizziness or syncope prior to the fall, but states that she tripped on a curb. She has established cardiology care in [facility] and has had no recent cardiac symptoms. [...] tablet 975 mg 975 mg oral q8h [facility] Sintia Hernandez PA-C 975 mg at 11/30/22 0600 amLODIPine (Norvasc) tablet 5 mg 5 mg oral Daily Sintia Hernandez PA-C 5 mg at 11/30/22 0809 atorvastatin (Lipitor) tablet 80 mg 80 mg oral Daily ROBBIE Chance-C 80 mg at 11/30/22 0809 buPROPion XL (Wellbutrin XL) 24 hr tablet 300 mg 300 mg oral Daily Sintia Lewis PA-C citalopram (CeleXA) tablet 40 mg 40 [...] 1 mg intramuscular q15 min PRN Sintia Lewis PA-C hydrALAZINE (Apresoline) injection 5 mg 5 mg intravenous q6h PRN Sintia Lewis PA-C insulin lispro (HumaLOG) injection 0-10 Units [...] entirely asymptomatic. Based on the description of theevents surrounding the fall yesterday, I do not feel that this was related to bradycardia. The patient has established cardiology care in [facility] and is going to follow-up after hospital discharge. Fatuma Starr DO * Fatuma Leal MD - 11/30/2022 5:40 AM EDTAssociated Order(s): IP CONSULT TO NEUROSURGERY I have reviewed and discussed this patient with the advanced practitioner. I have personally reviewed all the available imaging studies. I agree with the assessment and the plan. Fatuma Leal MD, FAANS, FACS Board Certified Neurosurgeon [facility] Outside Sales Advertising Executive of Neurological Surgery [facility] [employer] Office: Reason For Consult SDH History Of Present Illness Perdita is a 86 y.o. female presenting to [facility] ED after mechanical fall (stepped off curb and fell onto face). She was on anticoagulant (Eliquis for Afib). She admitted to mild headache upon arrival to ED. CT Head imaging reviewed and demonstrates left falx subdural hematoma (SDH). Repeat imaging demonstrates stability of SDH. She currently denies headache, vision changes, seizure activity, nausea, weakness, cognitive changes. She states she lives in [place], [place], and was in [place] for a meeting. Past Medical History She has a past medical history of Acute renal failure (ARF) ([facility]), Anemia, Congestive heart failure (CHF) ([facility]), Depression, Diverticulitis of large intestine without perforation or abscess without bleeding (12/14/2015), MELLO (dyspnea on exertion), Essential (primary) hypertension (12/16/2012), Hyperlipidemia, unspecified (12/16/2012), Localized edema (09/07/2021), Malignant neoplasm of colon, unspecified ([facility]), Obstructive sleep apnea (adult) (pediatric), [...] disorders, Personal history of other specified conditions (2014), Personal history of other specified conditions (06/03/2014), [...] hemorrhage are evident. Nonspecific scattered white matter hyp odensities, which may represent sequela of small vessel [...] with repeat CT Head at facility near [place] prior to visit. Discussed with patient who is agreeable with plan. I spent > 35 minutes in the professional and overall care of this patient. Erica Thompson APRN-INFORMATION ENGINEER * Brayden Ragsdale MD - 11/29/2022 10:53 PM EDT Consults [facility] Pulmonary and Critical Care Medicine History and Physical Subjective Patient is a 86 y.o. female admitted on 11/29/2022 2:27 PM with chief complaint of mechanical fall. HPI: Patient is an 86-year-old female with a past medical history of CHF, diverticulitis, CKD, hypertension, hyperlipidemia, colon cancer (in remission), and atrial fibrillation on AC who presented to theED via EMS after suffering a mechanical fall after eating dinner and stepping down from a curb at a restaurant. Critical care team was consulted for comanagement of patient while she is in the ICU for subdural hematoma. Per patient she was out to dinner earlier today with her ntqarhnk-by-bnq. They completed their mealand were walking out of the restaurant when she missed a step coming down off of the curb onto the parking lot and fell face forward. She was unable to break her fall and did hit her head against theconcrete. She does have a hematoma on her forehead along with ecchymosis in her bilateral orbits. Patient states that she does have a small headache and she also scraped her right arm. Otherwise not complaining of any other pain. Denies loss of consciousness. States that her evoehrbj-el-dme called EMS. Denies any visual changes, nausea, [...] showed no anemia, no leukocytosis, and thrombocytopenia 147which appears to be her baseline. Patient did have a CT C-spine, CT facial bones, and CT head without IV contrast which showed no midline shift. No acute fracture or dislocation in the facial or cranial bones. No acute fracture or traumatic subluxation in the cervical spine. And an acute subdural hematoma along the interhemisphericfissure measuring up to 0.3 cm in thickness. Findings were discussed with neurosurgery on-call, Dr. Leal, who [facility] [...] History: Diagnosis Date Acute renal failure (ARF) ([facility]) Anemia Congestive heart failure (CHF) ([facility]) Depression Diverticulitis of large intestine without perforation or abscess without bleeding 12/14/2015 Diverticulitis of large intestine without perforation or abscess without bleeding MELLO (dyspnea on exertion) Essential (primary) hypertension 12/16/2012 Benign essential hypertension Hyperlipidemia, unspecified 12/16/2012 Hyperlipidemia Localized edema 09/07/2021 Lower extremity edema Malignant neoplasm of colon, unspecified ([facility]) Colon cancer Obstructive sleep apnea (adult) (pediatric) [...] niCARdipine, 2.5-15 mg/hr, Last Rate: 2.5 mg/hr (11/29/221929) PRN Medications: PRN medications: dextrose 10 % [...] data in the 24 hours ending 11/29/22 7826 Physical exam: Physical Exam Lab/Radiology/Diagnostic Review: Results [...] atrial fibrillation on AC who presented to theED via EMS after suffering a mechanical fall [...] Ragsdale MD Pulmonary & Critical Care Attending [id number] Please excuse and typographical or unwanted errors with in this documentation as voice recognition software was used to dictate this note. documented in this [facility] Work Phone: [phone]) 431-749210-27-2023 Plan of care note* Care Plan - Los Jean RN - 12/01/2022 7:55 AM EDT The patient's goals for the shift include [...] by end of shift Outcome: Progressing [facility] Work Phone: [phone]) 298-972510-26-2023 Consult note* Negin Wing, RD - 11/30/2022 7:05 PM EDT Nutrition Note Reason for Assessment Reason for [...] Nutritional Needs: Total Energy Estimated Needs (kCal): (4664-6133) Method for Estimating Needs: 26-30 malvin kg [...] 3-8 days Follow up Comment: 12/07 MZ [facility]10-26-2023 Plan of care note* Care Plan - Bobby Jiménez DO - 11/30/2022 12:41 PM EDT Ingrid Donald is stable and no longer requiring ICU care. She is under the care of general surgery and is to be transferred to the medical floor for further management. We will be signing off from her care. Bobby Jiménez DO, PhD Internal Medicine PGY1 [facility] Work Phone: [phone]) 277-115010-26-2023 Consult note* Fatuma Starr DO - 11/30/2022 12:09 PM EDTAssociated Order(s): Inpatient consult to Cardiology Inpatient consult to Cardiology Consult performed by: Fatuma Starr DO Consult ordered by: Mariah Burgos APRN-INFORMATION ENGINEER Reason for consult: Bradycardia History Of Present Illness: This is an 86-year-old female with a history of paroxysmal atrial fibrillation. She is being seen today in consultation for evaluation of bradycardia. The patient suffered a fall yesterday and struckher head on the ground. She denies having any dizziness or syncope prior to the fall, but states that she tripped on a curb. She has established cardiology care in [facility] and has had no recent cardiac symptoms. [...] tablet 975 mg 975 mg oral q8h [facility] Sintia Hernandez PA-C 975 mg at 11/30/22 0600 amLODIPine (Norvasc) tablet 5 mg 5 mg oral Daily ROBBIE Chance-C 5 mg at 11/30/22 0809 atorvastatin (Lipitor) tablet 80 mg 80 mg oral Daily Sintia Hernandez PA-C 80 mg at 11/30/22 0809 buPROPion XL (Wellbutrin XL) 24 hr tablet 300 mg 300 mg oral Daily Sintia Lewis PA-C citalopram (CeleXA) tablet 40 mg 40 [...] 1 mg intramuscular q15 min PRN Sintia Lewis PA-C hydrALAZINE (Apresoline) injection 5 mg 5 mg intravenous q6h PRN Sintia Lewis PA-C insulin lispro (HumaLOG) injection 0-10 Units 0-10 Units subcutaneous TID with meals Sintia Hernandez PA-C losartan (Cozaar) tablet 100 mg 100 mg oral Daily TIO ChanceC 100 mg at 11/30/22 0807 metoprolol tartrate [...] entirely asymptomatic. Based on the description of theevents surrounding the fall yesterday, I do not feel that this was related to bradycardia. The patient has established cardiology care in [facility] and is going to follow-up after hospital discharge. Fatuma Starr DO [facility] Work Phone: [phone] Plan of care note* Care Plan - Gagandeep Key RN - 11/30/2022 6:20 AM EDT The patient's goals for the shift include Remain safe and free from injury throughout shift. The clinical goals for the shift include Maintain SBP 160> and >100 Over the shift, the patient did not make progress toward the following goals. Barriers to progression include . Recommendations to address these barriers include . [facility] Work Phone: [phone] Consult note* Fatuma Leal MD - 11/30/2022 5:40 AM EDTAssociated Order(s): IP CONSULT TO NEUROSURGERY I have reviewed and discussed this patient with the advanced practitioner. I have personally reviewed all the available imaging studies. I agree with the assessment and the plan. Fatuma Leal MD, FAANS, FACS Board Certified Neurosurgeon [facility] Outside Sales Advertising Executive of Neurological Surgery [facility] [facility] [employer] Office: Reason For Consult SDH History Of Present Illness Ingrid Donald is a 86 y.o. female presenting to [facility] ED after mechanical fall (stepped off curb and fell onto face). She was on anticoagulant (Eliquis for Afib). She admitted to mild headache upon arrival to ED. CT Head imaging reviewed and demonstrates left falx subdural hematoma (SDH). Repeat imaging demonstrates stability of SDH. She currently denies headache, vision changes, seizure activity, nausea, weakness, cognitive changes. She states she lives in [place], [place], and was in [place] for a meeting. Past Medical History She has a past medical history of Acute renal failure (ARF) ([facility]), Anemia, Congestive heart failure (CHF) ([facility]), Depression, Diverticulitis of large intestine without perforation or abscess without bleeding (12/14/2015), MELLO (dyspnea on exertion), Essential (primary) hypertension (12/16/2012), Hyperlipidemia, unspecified (12/16/2012), Localized edema (09/07/2021), Malignant neoplasm of colon, unspecified ([facility]), Obstructive sleep apnea (adult) (pediatric), [...] disorders, Personal history of other specified conditions (2014), Personal history of other specified conditions (06/03/2014), [...] chest expansion symmetric Abdomen is not distended BRID readily, no pronator drift, finger - nose [...] hemorrhage are evident. Nonspecific scattered white matter hyp odensities, which may represent sequela of small vessel [...] with repeat CT Head at facility near [place] prior to visit. Discussed with patient who is agreeable with plan. I spent > 35 minutes in the professional and overall care of this patient. Erica Thompson APRN-INFORMATION ENGINEER [facility] Work Phone: [phone] Consult note* Brayden Ragsdale MD - 11/29/2022 10:53 PM EDT Consults [facility] Pulmonary and Critical Care Medicine History and Physical Subjective Patient is a 86 y.o. female admitted on 11/29/2022 2:27 PM with chief complaint of mechanical fall. HPI: Patient is an 86-year-old female with a past medical history of CHF, diverticulitis, CKD, hypertension, hyperlipidemia, colon cancer (in remission), and atrial fibrillation on AC who presented to theED via EMS after suffering a mechanical fall after eating dinner and stepping down from a curb at a restaurant. Critical care team was consulted for comanagement of patient while she is in the ICU for subdural hematoma. Per patient she was out to dinner earlier today with her tykezynb-mo-czu. They completed their mealand were walking out of the restaurant when she missed a step coming down off of the curb onto the parking lot and fell face forward. She was unable to break her fall and did hit her head against theconcrete. She does have a hematoma on her forehead along with ecchymosis in her bilateral orbits. Patient states that she does have a small headache and she also scraped her right arm. Otherwise not complaining of any other pain. Denies loss of consciousness. States that her myxuixln-ry-vim called EMS. Denies any visual changes, nausea, [...] showed no anemia, no leukocytosis, and thrombocytopenia 147which appears to be her baseline. Patient did have a CT C-spine, CT facial bones, and CT head without IV contrast which showed no midline shift. No acute fracture or dislocation in the facial or cranial bones. No acute fracture or traumatic subluxation in the cervical spine. And an acute subdural hematoma along the interhemisphericfissure measuring up to 0.3 cm in thickness. Findings were discussed with neurosurgery on-call, Dr. Leal, who [facility] with [...] niCARdipine, 2.5-15 mg/hr, Last Rate: 2.5 mg/hr (11/29/221929) PRN Medications: PRN medications: dextrose 10 % [...] output data in the 24 hours ending 11/29/222252 Physical exam: Physical Exam Lab/Radiology/Diagnostic Review: Results [...] atrial fibrillation on AC who presented to theED via EMS after suffering a mechanical fall [...] Ragsdale MD Pulmonary & Critical Care Attending P:[id number] Please excuse and typographical or unwanted errors with in this documentation as voice recognition software was used to dictate this note. [facility] Work Phone: [phone]) [phone] History and physical note* Jose Parker MD - 11/29/2022 5:56 PM EDT Trauma History and Physical Subjective Patient is [...] History: Diagnosis Date Acute renal failure (ARF) ([facility]) Anemia Congestive heart failure (CHF) ([facility]) Depression Diverticulitis of large intestine without perforation or abscess without bleeding 12/14/2015 Diverticulitis of large intestine without perforation or abscess without bleeding MELLO (dyspnea on exertion) Essential (primary) hypertension 12/16/2012 Benign essential hypertension Hyperlipidemia, unspecified 12/16/2012 Hyperlipidemia Localized edema 09/07/2021 Lower extremity edema Malignant neoplasm of colon, unspecified ([facility]) Colon cancer Obstructive sleep apnea (adult) (pediatric) [...] right forehead hematoma, on Eliquis. COMPARISON: None. [facility] ESSION NUMBER(S): [id number]; [id number]; [id number] ORDERING CLINICIAN: CORBIN BORGES TECHNIQUE: Noncontrast axial CT scan of head, facial bones, and cervical spine was performed.Angled reformats in brain and bone windows were generated. The images were reviewed in bone, brain,blood and soft tissue windows. 3D volume rendered [...] Forrest Drew 11/29/2022 4:54 PM Dictation workstation: [id number] CT cervical spine wo IV contrast Result Date: 11/29/2022 Interpreted By: Forrest Drew, STUDY: CT FACIAL BONES WO IV CONTRAST; CT HEAD W/O CONTRAST TRAUMA PROTOCOL; CT CERVICAL SPINE WO IV CONTRAST; 11/29/2022 4:37 pm INDICATION: Signs/Symptoms:fall, R frontal bone ecchymosis; Signs/Symptoms:Fall, right forehead hematoma, on Eliquis. COMPARISON: None. [facility] ESSION NUMBER(S): [id number]; [id number]; [id number] ORDERING CLINICIAN: CORBIN BRYAN; FLORENCE BORGES TECHNIQUE: Noncontrast axial CT scan of head, facial bones, and cervical spine was performed.Angled reformats in brain and bone windows were generated. The images were reviewed in bone, brain,blood and soft tissue windows. 3D volume rendered [...] Forrest Drew 11/29/2022 4:54 PM Dictation workstation: [id number] CT maxillofacial bones wo IV contrast Result Date: 11/29/2022 Interpreted By: Forrest Drew, STUDY: CT FACIAL BONES WO IV CONTRAST; CT HEAD W/O CONTRAST TRAUMA PROTOCOL; CT CERVICAL SPINE WO IV CONTRAST; 11/29/2022 4:37 pm INDICATION: Signs/Symptoms:fall, R frontal bone ecchymosis; Signs/Symptoms:Fall, right forehead hematoma, on Eliquis. COMPARISON: None. [facility] ESSION NUMBER(S): [id number]; [id number]; [id number] ORDERING CLINICIAN: CORBIN BRYAN; FLORENCE BORGES TECHNIQUE: Noncontrast axial CT scan of head, facial bones, and cervical spine was performed.Angled reformats in brain and bone windows were generated. The images were reviewed in bone, brain,blood and soft tissue windows. 3D volume rendered [...] Forrest Drew 11/29/2022 4:54 PM Dictation workstation: [id number] Assessment /Plan Patient is a 86 y.o. female with PMH significant for HTN, HLD, Afib, CAD/NSTEMI s/p stents, chronicanemia, GERD, DMT2, mitral regurgitation, colon cancer, CHF, and MDD who presented to [facility] ED on 11/29 as an HIA following [...] the alexander and critical portions of the historyand physical exam I was physically present for [...] History and findings otherwise are as above. [facility] Work Phone: [phone]) [phone] History and physical note* Jose Parker MD - 11/29/2022 5:56 PM EDT Trauma History and Physical Subjective Patient is [...] Most Recent: Vitals: 11/29/22 1734 BP: (!) Pulse: 68 Resp: 18 Temp: SpO2: 98% [...] right forehead hematoma, on Eliquis. COMPARISON: None. [facility] ESSION NUMBER(S): [id number]; [id number]; [id number] ORDERING CLINICIAN: CORBIN BORGES TECHNIQUE: Noncontrast axial CT scan of head, facial bones, and cervical spine was performed.Angled reformats in brain and bone windows were generated. The images were reviewed in bone, brain,blood and soft tissue windows. 3D volume rendered [...] Forrest Drew 11/29/2022 4:54 PM Dictation workstation: [id number] CT cervical spine wo IV contrast Result Date: 11/29/2022 Interpreted By: Forrest Drew, STUDY: CT FACIAL BONES WO IV CONTRAST; CT HEAD W/O CONTRAST TRAUMA PROTOCOL; CT CERVICAL SPINE WO IV CONTRAST; 11/29/2022 4:37 pm INDICATION: Signs/Symptoms:fall, R frontal bone ecchymosis; Signs/Symptoms:Fall, right forehead hematoma, on Eliquis. COMPARISON: None. [facility] ESSION NUMBER(S): [id number]; [id number]; [id number] ORDERING CLINICIAN: CORBIN BORGES TECHNIQUE: Noncontrast axial CT scan of head, facial bones, and cervical spine was performed.Angled reformats in brain and bone windows were generated. The images were reviewed in bone, brain,blood and soft tissue windows. 3D volume rendered [...] Forrest Drew 11/29/2022 4:54 PM Dictation workstation: [id number] CT maxillofacial bones wo IV contrast Result Date: 11/29/2022 Interpreted By: Forrest Drew, STUDY: CT FACIAL BONES WO IV CONTRAST; CT HEAD W/O CONTRAST TRAUMA PROTOCOL; CT CERVICAL SPINE WO IV CONTRAST; 11/29/2022 4:37 pm INDICATION: Signs/Symptoms:fall, R frontal bone ecchymosis; Signs/Symptoms:Fall, right forehead hematoma, on Eliquis. COMPARISON: None. [facility] ESSION NUMBER(S): [id number]; [id number]; [id number] ORDERING CLINICIAN: CORBIN BORGES TECHNIQUE: Noncontrast axial CT scan of head, facial bones, and cervical spine was performed.Angled reformats in brain and bone windows were generated. The images were reviewed in bone, brain,blood and soft tissue windows. 3D volume rendered [...] Forrest Drew 11/29/2022 4:54 PM Dictation workstation: [id number] Assessment /Plan Patient is a 86 y.o. female with PMH significant for HTN, HLD, Afib, CAD/NSTEMI s/p stents, chronicanemia, GERD, DMT2, mitral regurgitation, colon cancer, CHF, and MDD who presented to [facility] ED on 11/29 as an HIA following [...] the alexander and critical portions of the historyand physical exam I was physically present for [...] otherwise are as above. documented in this [facility] Work Phone: 1(881) 817-279710-25-2023 Emergency department Note* Florence Borges DO - 11/29/2022 2:20 PM EDT HPI No chief complaint on file. Patient is an 86-year-old female with atrial fibrillation on Eliquis, hypertension, hyperlipidemia,diabetes presents the emergency department after mechanical fall. She was walking of her rash on her kekmdsep-bw-vff. She stepped down off the curb and fell forward, striking the right side of her head where there is now a hematoma. She does have a small skin tear on her right elbow. EMS was calledand patient was brought to the emergency department. She did not have any loss of consciousness, nausea or vomiting. Her tsufphkn-md-dcq is here with her reports that she [...] History: Diagnosis Date Acute renal failure (ARF) ([facility]) Anemia Congestive heart failure (CHF) ([facility]) Depression Diverticulitis of large intestine without perforation or abscess without bleeding 12/14/2015 Diverticulitis of large intestine without perforation or abscess without bleeding MELLO (dyspnea on exertion) Essential (primary) hypertension 12/16/2012 Benign essential hypertension Hyperlipidemia, unspecified 12/16/2012 Hyperlipidemia Localized edema 09/07/2021 Lower extremity edema Malignant neoplasm of colon, unspecified ([facility]) Colon cancer Obstructive sleep apnea (adult) (pediatric) [...] Course & MDM ED Course as of 11/29/22 1725 SunNov 29, [address] head W O contrast trauma protocol Called by radiologist for 2.4 mm subdural hematoma. It is unclear why there was a delay to CT imaging for this patient. [AB] ED Course User Index [AB] Corbin Bryan MD Diagnoses as of 11/29/22 1725 Subdural hemorrhage (CMS/HCC) Fall, initial encounter Medical Decision Making Patient is a 86-year-old female on Eliquis who presents emergency department after mechanical fall.On arrival to emergency room by EMS, she is noted to be hypertensive 182/56, but asymptomatic. Otherwise hemodynamically stable. She does have known hypertension. Blood sugar for EMS was 140. Patientdenies any symptoms such as chest pain, dizziness, shortness of breath, changes in vision prior to this fall. She states that she had fallen because of the curb. She does not think she has ever had atetanus shot, so she is given a Boostrix [...] Forrest Drew 11/29/2022 4:54 PM Dictation workstation: [id number] CT cervical spine wo IV contrast Final [...] Forrest Drew 11/29/2022 4:54 PM Dictation workstation: [id number] CT maxillofacial bones wo IV contrast Final [...] Forrest Drew 11/29/2022 4:54 PM Dictation workstation: [id number] Patient is reevaluated. GCS 15, awake and alert, no distress. Findings discussed with the patient. She require admission and she is agreeable with this. Dr. Leal contacted. He reviewed the images. The patient can stay here at [place]. Repeat CT scan in 6 hours. Systolic blood pressure goal below 160. No Kcentra. Patient to be admitted to trauma surgery in the ICU. Contacted Dr. Parker and report is given [facility] trauma HORACIO. Labs drawn per request. Florence Borges DO, PGY 3 Emergency Medicine Resident Amount and/or Complexity of Data Reviewed Radiology: ordered and independent interpretation performed. Procedure Procedures Florence Borges DO Resident 11/29/22 2755 Associated attestation - Corbin Bryan MD - 11/29/2022 9:41 PM EDT The patient was seen by the resident/fellow. I have personally performed a substantive portion of the encounter. I have seen and examined the patient; agree with the workup, evaluation, MDM, management and diagnosis. The care plan has been discussed with the resident; I have reviewed the resident snote and agree with the documented findings. Presented as a HIA. Nontoxic-appearing. Hemodynamically stable. Primary survey intact. Nursing change management analyst after initial evaluation. Unfortunately, was not communicated [...] Kcentra at this time. [facility]: 1(169) 547-215910-25-2023 Physician Emergency department Note* Florence Borges DO - 11/29/2022 2:20 PM EDT HPI No chief complaint on file. Patient is an 86-year-old female with atrial fibrillation on Eliquis, hypertension, hyperlipidemia,diabetes presents the emergency department after mechanical fall. She was walking of her rash on her hkdiqaal-nj-kjd. She stepped down off the curb and fell forward, striking the right side of her head where there is now a hematoma. She does have a small skin tear on her right elbow. EMS was calledand patient was brought to the emergency department. She did not have any loss of consciousness, nausea or vomiting. Her kgpnmdzs-zq-xzd is here with her reports that she [...] MD Diagnoses as of 11/29/221724 Subdural hemorrhage (CMS/HCC) Fall, initial encounter Medical Decision Making Patient is a 86-year-old female on Eliquis who presents emergency department after mechanical fall.On arrival to emergency room by EMS, she is noted to be hypertensive 182/56, but asymptomatic. Otherwise hemodynamically stable. She does have known hypertension. Blood sugar for EMS was 140. Patientdenies any symptoms such as chest pain, dizziness, shortness of breath, changes in vision prior to this fall. She states that she had fallen because of the curb. She does not think she has ever had atetanus shot, so she is given a Boostrix [...] Forrest Drew 11/29/2022 4:54 PM Dictation workstation: [id number] CT cervical spine wo IV contrast Final [...] Forrest Drew 11/29/2022 4:54 PM Dictation workstation: [id number] CT maxillofacial bones wo IV contrast Final [...] Forrest Drew 11/29/2022 4:54 PM Dictation workstation: [id number] Patient is reevaluated. GCS 15, awake and alert, no distress. Findings discussed with the patient. She require admission and she is agreeable with this. Dr. Leal contacted. He reviewed the images. The patient can stay here at [place]. Repeat CT scan in 6 hours. Systolic blood pressure goal below 160. No Kcentra. Patient to be admitted to trauma surgery in the ICU. Contacted Dr. Parker and report is given [facility] trauma HORACIO. Labs drawn per request. Florence Borges DO, PGY 3 Emergency Medicine Resident Amount and/or Complexity of Data Reviewed Radiology: ordered and independent interpretation performed. Procedure Procedures Florence Borges DO Resident 11/29/22 9860 Associated attestation - Corbin Bryan MD - 11/29/2022 9:41 PM EDT The patient was seen by the resident/fellow. I have personally performed a substantive portion of the encounter. I have seen and examined the patient; agree with the workup, evaluation, MDM, management and diagnosis. The care plan has been discussed with the resident; I have reviewed the resident snote and agree with the documented findings. Presented as a HIA. Nontoxic-appearing. Hemodynamically stable. Primary survey intact. Nursing change management analyst after initial evaluation. Unfortunately, was not communicated to oncoming nursing that the patient was a HIA with pending acute/life limb-threatening imaging. After this was relayed, patient was immediately taken to the CT scanner found to have a subdural hematoma. Discussed with neurosurgery. Discussed with trauma surgery. Will escalate care to hospitalization for further management. Neurosurgery not recommending reversal with Kcentra at this time. [facility] Work Phone: 1(236) 847-813009-06-2023 History of Present illness Narrative* Alaina Ferrara AUD - 10/11/2022 1:37 PM EDT Ingrid Donald 86 year old here today with her daughter for a follow up to her fitting of demo hearing aids. The patient reports liking the aids and feels she is hearing much better. She would like to proceed with ordering new hearing aids Purchase agreements were signed and the patient will schedule an orientation in 1 week. JACKSON Epstein [facility] History of Present illness Narrative* Alaina Ferrara AUD - 10/04/2022 3:30 PM EDT Ingrid Donald October 04, 2022 HEARING AID EVALUATION Previous [...] 1 week. JACKSON Epstein documented [facility] History of Present illness Narrative* Alaina Ferrara AUD - 08/31/2022 9:45 AM EDT //[facility] August 31, 2022 Ingrid Donald [...] occluding cerumen in the right ear left earfree of cerumen TEST RESULTS: Audiometric testing revealed a mild to moderately severe sensorineural hearing loss bilaterally. Speech spa receptionist thresholds agree with pure tone averaged. Speech discrimination testingrevealed good speech discrimination ability bilaterally. Audiometric test may be viewed in procedures RECOMMENDATIONS/PLAN: The above test results were discussed with the patient and the following recommendations were made: 1. Cerumen removal, the patient will do this at home 2. Consider referral to ENT to evaluate dizziness 3. Consider hearing aids 4. Use of communication strategies to enhance speech understanding ability Alaina Ferrara, JACKSON documented [facility]28[facility] History of Present illness Narrative* Tori Roblero APRN-INFORMATION ENGINEER - 06/02/2022 10:30 AM EDT Subjective Patient ID: Ingrid Donald is a 86 y.o. female who presents for Follow-up (Hospital follow up /[facility] /Admission 04/21/22/Discharged 04/26/22/Final dx pneumonia//Per pt she's still not feeling verygood. /Records were requested. Have not yet received them. ). HPI Patient of Dr. Price here for hospital follow up- was in [facility], admitted 04/21/2022- 04/26/2022(?) diagnosis pneumonia and Diverticulitis. 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 Review of Systems Constitutional: Positive for fatigue. [...] x-ray-> call with results [facility] Work Phone: [phone]) 865-977304-28-2023 Instructions* Patient Instructions* VINNY Ruiz - 06/02/2022 10:30 AM EDT Chest x-ray today-> call with results Start steroid and antibiotic today [facility] Work Phone: 1(246) 642-939411-01-2022 History of Present illness Narrative* f/u anemia, ashd, dm, dep/anx, pa, ckd * doing ok * no bleeding * dr reynaga rescoping this month * gave 3 units prbcs * hgb 9.5 after first unit * feels better * edema better -[facility] Work Phone: 1([phone]) 113-161405-19-2017 Evaluation note* Diagnosis Onset Date Resolution Status Aortic stenosis chronic Coronary artery disease rn hemodialysis charge jill History of coronary artery stent placement June 23, 2 017 chronic Hyperlipemia chronic Hypertension chronic Paroxysmal atrial fibrillation [facility] Work Phone: Evaluation note* Diagnosis Iron deficiency- Primary Iron deficiency anemia, unspecified [facility]* Diagnosis Iron deficiency- Primary Iron deficiency anemia, unspecified [facility] Iron deficiency- Primary Iron deficiency anemia, unspecified [facility]* Diagnosis Acute cough- Primary Upper respiratory tract infection, unspecified type Anemia, unspecified type Type 2 diabetes mellitus without complication, without long-term current use of insulin ([facility]) Iron deficiency Disorders of iron metabolism Vitamin B12 deficiency Other B-complex deficiencies Screening for thyroid disorder Vitamin D deficiency Hyperlipidemia, unspecified hyperlipidemia type documented in this encounter [facility] Work Phone: Evaluation note* Diagnosis ETD (Eustachian tube dysfunction), bilateral- Primary Sensorineural hearing loss (SNHL) of both ears documented [facility] this [facility]* Diagnosis Sensorineural hearing loss (SNHL) of both ears- Primary documented in this encounter [facility]* Diagnosis Subdural hemorrhage (CMS/HCC)- Primary Subdural hemorrhage Subdural hemorrhage ([facility]) Subdural hemorrhage Fall, initial encounter documented in this encounter [facility] Work Phone: Evaluation note* Diagnosis Subdural hemorrhage (CMS/HCC)- Primary Subdural hemorrhage Nonsustained ventricular tachycardia ([facility]) Non-ST elevation (NSTEMI) myocardial infarction ([facility]) Type 2 diabetes mellitus without complication, without long-term current use of insulin ([facility]) Paroxysmal atrial fibrillation ([facility]) Atrial fibrillation Hypertension, unspecified type Class 2 severe obesity due to excess calories with serious comorbidity and body mass index (BMI) of 37.0 to 37.9 in adult ([facility]) Hyperlipidemia, unspecified hyperlipidemia type Stage 3a chronic kidney disease ([facility]) CKD (chronic kidney disease), stage II Chronic kidney disease, Stage II (mild) ASHD (arteriosclerotic heart disease) Coronary atherosclerosis of unspecified type of vessel, lytton or graft Acute non-ST elevation myocardial infarction (NSTEMI) ([facility]) documented in this encounter [facility] Work Phone: Evaluation note* Diagnosis SDH (subdural hematoma) ([facility])- Primary Subdural hemorrhage documented in this encounter [facility] Work Phone: Evaluation note* Diagnosis ACS (acute coronary syndrome) ([facility]) Intermediate coronary syndrome documented in this encounter [facility] Work Phone: Evaluation note* Diagnosis Routine general medical examination at health care facility- Primary Routine general medical examination at a health care facility Medicare annual wellness visit, subsequent Depression, unspecified depression type ASHD (arteriosclerotic heart disease) Coronary atherosclerosis of unspecified type of vessel, lytton or graft Type 2 diabetes mellitus without complication, without long-term current use of insulin (Multi) documented in this encounter [facility] Work Phone: Evaluation note* Diagnosis Primary osteoarthritis of both knees- Primary Primary localized osteoarthrosis, lower leg Type 2 diabetes mellitus without complication, without long-term current use of insulin ([facility]) documented [facility]* Diagnosis ASHD (arteriosclerotic heart disease)- Primary Coronary atherosclerosis of unspecified type of vessel, lytton or graft Hyperlipidemia, unspecified hyperlipidemia type Type 2 diabetes mellitus without complication, without long-term current use of insulin (Multi) Hypertension, unspecified type Anemia, unspecified type CKD (chronic kidney disease), stage II Chronic kidney disease, Stage II (mild) documented in this encounter [facility] Work Phone: Evaluation note* Diagnosis Anemia, unspecified- Primary [facility] Chronic pain of both knees documented in this encounter [facility] Work Phone: Evaluation note* Diagnosis Depression, unspecified depression type- Primary Chronic pain of both knees Type 2 diabetes mellitus without complication, without long-term current use of insulin (Multi) Hyperlipidemia, unspecified hyperlipidemia type Hypertension, unspecified type ASHD (arteriosclerotic heart disease) Coronary atherosclerosis of unspecified type of vessel, lytton or graft Anxiety Anxiety state, unspecified HFrEF (heart failure with reduced ejection fraction) (Multi) COPD exacerbation (Multi) Obstructive chronic bronchitis with exacerbation Paroxysmal atrial fibrillation (Multi) Atrial fibrillation documented in this encounter [facility] Work Phone: Evaluation noteNo assessment information available [facility] Work Phone: History of Present illness Narrative* getting pharm stress due to exertional fatigue * some sob * no bleeding or black stool, palps * f/u dep, dm, htn, nsvit, ashd, anx, gerd * dep and anxiety ok * no gerd [facility] Work Phone: History of Present illness Narrative* epigastric pain * famotidine helped 50% * worse w/ deep breaths * nausea w/ supper * back is better * f/u ashd, dm, dep/anx, htn, hyperlipidemia, pa, ckd [facility] Work Phone: History of Present illness Narrative* f/u dm, htn, hyperlipidemia, testing * feels pretty well now [facility] Work Phone: Hisdhhh of Present illness Narrative* The patient is [...] one house * air conditioner out in [place] * crying a lot * leg and foot pain * r > left * no trauma * a little swelling * f/u dm, hyperlipidemia, dep, htn [facility] Work Phone: History of Present illness Narrative* leg swelling * pain in r foot w/ walking/standing long periods * us neg x r bond's cyst * xrays remarkable for foot oa * edema very troubling to pt [facility] Work Phone: History of Present illness Narrative* edema * not better * some mello * no cp * not eating salt * weight up * f/u ckd, htn, hyperlipidemia, ashd [facility] Work Phone: History of Present illness Narrative* f/u edema, anx, dep, abnormal cr, anemia * edema better * less upset * no bleeding or black stool [facility] Work Phone: Hospital Discharge instructionsAdditional Instructions Thank you for trusting us with your care today! The test on your heart showed no sign of damage. Please return to the emergency department if your symptoms change or worsen. Please follow with your Primary Care Physician and/or Cardiology for further outpatient evaluation and management.[facility] Work Phone: Reason for referral (narrative)* Diagnostic Procedure Only (Routine) - New Request Specialty Diagnoses / Procedures Referred By Diana dominguez Referred To Contact XR IMAGING Diagnoses Primary osteoarthritis of both knees Procedures XR KNEE 3V FLEX/LAT/MERCH LEFT (AK) RADIOLOGIC EXAMINATION KNEE 3 VIEWS Mark Vazquez MD [address] [place] [id number] [place] [id number] Referral ID Status Reason Start Date Expiration Date Visits Requested Visits Authorized [id number] New Request Auto-Generat ed Referral 11/13/2023 12/12/2024 1 1 * Diagnostic Procedure Only (Routine) - New Request Specialty Diagnoses / Procedures Referred By Diana dominguez Referred To Contact XR IMAGING Diagnoses Primary osteoarthritis of both knees Procedures XR KNEE 3V FLEX/LAT/MERCH RIGHT (AK) Mark Vazquez MD [address] [place] [address] [facility] [id number] Referral ID Status Reason Start Date Expiration Date Visits Requested Visits Authorized [id number] New Request Auto-Generat ed Referral 11/13/2023 12/12/2024 1 1 [facility] for referral (narrative)No reason for referral information availableWAshtabula [facility] Work Phone: Summary Purpose Family History Mother Name Dates Details Family history of [...] sister Coronary artery disease Unknown Advance Directives Latest Code Status on File Code Status [...] Will No October 05 11:20am Power of Funeral Attendant No October 05 020 11:20am Latest Code [...] Patient condition does not warra nt discussion Advance Directive Response Recorded Date/ Time Do you have a Healthcare Power of Funeral Attendant? Yes August 17, 2024 8:06pm Advance Directives No October 06, 2019 12:20pm Advance Directive Response Recorded Date/ Time Do you have a Healthcare Power of Funeral Attendant? Yes August 17, 2024 8:06pm Do you have a Healthcare Power of Funeral Attendant? Yes August 18, 2024 3:32pm Name of Medical Power of Funeral Attendant DAUGHTER August 18, 2024 3:32pm Advance Directives No October 06, 2019 12:20pm Chief Complaint 6 month follow up with [...] over 15 Minutes, ONCE, 1 dose, On 12/12/21 at 0900, Please conduct a 30 minute post dose observation. New Bag/Syringe/Bottle 12/12/2021 8:53 AM EST 200 mg 400 mL/hr Reason for Referral Specialty Diagnoses / Procedures Referred By Contac t Referred To Contact Radiology Diagnoses Acute cough Upper respiratory tract infection, unspecified type Procedures XR chest 2 views MamadouarshTori newsome Wander, CREDIT CARD ANALYST-INFORMATION ENGINEER [address] [facility] [place] [address] Referral ID Status Reason Start Date Expiration Date Visits Requested Visits Authorized [id number] Authorized Perform Procedure 06/02/2022 11/29/2022 1 1 Specialty Diagnoses / Procedures Referred By Contac t Referred To Contact Diagnoses ETD (Eustachian tube dysfunction), bilateral Procedures HEARING TEST/AUDIOGRAM COMPRE AUDIOMETRY THRESHOLD EVAL SP RECOGNIJ Diane Cronin DO [address] [place] [address] [facility] [address] [place] [address] Referral ID Status Reason Start Date Expiration Date V isits Requested Visits Authorized [id number] Closed Auto-Generate d Referral 08/23/2022 11/21/2022 1 1 Specialty Diagnoses / Procedures Referred By Contac t Referred To Contact Diagnoses ACS (acute coronary syndrome) (CMS/HCC) Procedures ECG 12 lead Corbin Bryan MD [address] [facility] [address] [place] [address] Referral ID Status Reason Start Date Expiration Date V isits Requested Visits Authorized [id number] Pending Review 12/26/2022 12/26/2023 1 1 Specialty Diagnoses / Procedures Referred By Contac t Referred To Contact Diagnoses Routine general medical examination at health care facility Procedures ECG 12 lead (Clinic Performed) Eitan Price MD [address] [facility], [address] [place] [address] Referral ID Status Reason Start Date Expiration Date V isits Requested Visits Authorized [id number] Authorized 06/26/2023 06/25/2024 1 1 Specialty Diagnoses / Procedures Referred By Diana t Referred To Contact Radiology Diagnoses Chronic pain of both knees Procedures XR knees anteroposterior standing bilateral Eitan Price MD [address] [facility], [address] [place] [address] Referral ID Status Reason Start Date Expiration Date Visits Requested Visits Authorized [id number] Authorized Perform Procedure 10/03/2023 10/02/2024 1 1 Chief Complaint and Reason for Visit Chief Complaint 6 M FU MURMUR Reason for Visit Aortic stenosis Coronary artery disease History of coronary artery stent placement Hyperlipemia Hypertension Paroxysmal atrial fibrillation Chief Complaint Admit Date chest pain August 17, 2024 7:42 pm Chief Complaint Admit Date chest pain August 17, 2024 7:42 pm Abn labs August 18, 2024 2:27 pm Additional Source Comments INFORMATION SOURCE (unrecogn ized section and content) DATE CREATED AUTHOR 08/18/2018 [facility] DATE CREATED AUTHOR AUTHOR'S ORGANIZ ATION 12/12/2021 [facility] DATE CREATED AUTHOR AUTHOR'S ORGANIZ ATION 12/15/2021 [employer] DATE CREATED AUTHOR AUTHOR'S ORGANIZ ATION 01/14/2022 [facility] DATE CREATED AUTHOR AUTHOR'S ORGANIZ ATION 10/09/2022 [facility] DATE CREATED AUTHOR AUTHOR'S ORGANIZ ATION 02/15/2023 [facility] DATE CREATED AUTHOR AUTHOR'S ORGANIZ ATION 10/10/2023 [facility] DATE CREATED AUTHOR AUTHOR'S ORGANIZ ATION 10/15/2023 [facility] DATE CREATED AUTHOR AUTHOR'S ORGANIZ ATION 11/14/2023 [facility] DATE CREATED AUTHOR AUTHOR'S ORGANIZ ATION 12/01/2023 [facility] DATE CREATED AUTHOR AUTHOR'S ORGANIZ ATION 03/23/2024 [facility] DATE CREATED AUTHOR AUTHOR'S ORGANIZ ATION 05/14/2024 [facility] Source Comments (unrecognize d section and content) In the event this informatio n is protected by the Federal Confidentiality of Alcohol and Drug Abuse Patient Records regulations: The Federal rules restrict any use of the information to criminally investigate or prosecute any alcohol or drug abuse patient.[facility] the event this information is protected by the Federal Confidentiality of Alcohol and Drug Abuse Patient Records regulations: The Federal rules restrict any use of the information to criminally investigate or prosecute any alcohol or drug abuse patient.[facility] the event this information is protected by the Federal Confidentiality of Alcohol and Drug Abuse Patient Records regulations: The Federal rules restrict any use of the information to criminally investigate or prosecute any alcohol or drug abuse patient.[facility] HospitalIn the event this information is protected by the Federal Confidentiality of Alcohol and Drug Abuse Patient Records regulations: The Federal rules restrict any use of the information to criminally investigate or prosecute any alcohol or drug abuse patient.[facility] HospitalIn the event this information is protected by the Federal Confidentiality of Alcohol and Drug Abuse Patient Records regulations: The Federal rules restrict any use of the information to criminally investigate or prosecute any alcohol or drug abuse patient.[facility] HospitalIn the event this information is protected by the Federal Confidentiality of Alcohol and Drug Abuse Patient Records regulations: The Federal rules restrict any use of the information to criminally investigate or prosecute any alcohol or drug abuse patient.[facility] HospitalIn the event this information is protected by the Federal Confidentiality of Alcohol and Drug Abuse Patient Records regulations: The Federal rules restrict any use of the information to criminally investigate or prosecute any alcohol or drug abuse patient.[facility] HospitalIn the event this information is protected by the Federal Confidentiality of Alcohol and Drug Abuse Patient Records regulations: The Federal rules restrict any use of the information to criminally investigate or prosecute any alcohol or drug abuse patient.[facility] HospitalIn the event this information is protected by the Federal Confidentiality of Alcohol and Drug Abuse Patient Records regulations: The Federal rules restrict any use of the information to criminally investigate or prosecute any alcohol or drug abuse patient.[facility] HospitalIn the event this information is protected by the Federal Confidentiality of Alcohol and Drug Abuse Patient Records regulations: The Federal rules restrict any use of the information to criminally investigate or prosecute any alcohol or drug abuse patient.[facility] HospitalIn the event this information is protected by the Federal Confidentiality of Alcohol and Drug Abuse Patient Records regulations: The Federal rules restrict any use of the information to criminally investigate or prosecute any alcohol or drug abuse patient.[facility] HospitalIn the event this information is protected by the Federal Confidentiality of Alcohol and Drug Abuse Patient Records regulations: The Federal rules restrict any use of the information to criminally investigate or prosecute any alcohol or drug abuse patient.[facility] Reason for Visit (unrecogniz ed section and content) Specialty Diagnoses / Procedures Referred By Contac t Referred To Contact Diagnoses Iron deficiency Procedures IRON SUCROSE INJECTION PER 1 MG Jose Reynaga MD [facility] [address], [address] [place] [address] Infusion Center [facility] [address] [place] [address] Referral ID Status Reason Start Date Expiration Date V isits Requested Visits Authorized [id number] Authorized 12/01/2021 02/04/2022 99 99 Reason Comments Follow-up Hospital follow [place] Admission 04/21/22Discharged 04/26/22Final dx pneumoniaPer pt she's still not feeling very good. Records were requested. Have not yet received them. Reason Comments Hearing Loss Specialty Diagnoses / Procedures Referred By Contac t Referred To Contact Diagnoses ETD (Eustachian tube dysfunction), bilateral Procedures HEARING TEST/AUDIOGRAM COMPRE AUDIOMETRY THRESHOLD EVAL SP Diane Mclaughlin, [address] [place] [address] [facility] [address] [place] [address] Referral ID Status Reason Start Date Expiration Date V isits Requested Visits Authorized [id number] Closed Auto-Generate d Referral 08/23/2022 11/21/2022 1 1 Reason Comments Hearing Loss Reason Comments Follow Up Reason Comments Fall Specialty Diagnoses / Procedures Referred By Contac t Referred To Contact Diagnoses Subdural hemorrhage (CMS/HCC) Procedures INPT Sintia Hernandez PA-C [address] [place] [address] [address] [place] [address] Referral ID Status Reason Start Date Expiration Date Visits Re quested Visits Authorized [id number] 1 1 Reason Comments Follow-up Reason Comments New Patient Visit Pt is a new visit. P t is a status post fall 11/29/22. Pt denies pain. Specialty Diagnoses / Procedures Referred By Contac t Referred To Contact Diagnoses ACS (acute coronary syndrome) ([facility]/HCC) Procedures ECG 12 lead Corbin Bryan MD [address] [facility] [address] [place] [address] Referral ID Status Reason Start Date Expiration Date V isits Requested Visits Authorized [id number] Pending Review 12/26/2022 12/26/2023 1 1 Reason Comments Medicare Annual Wellness Visit Subsequen t Reason Comments New Specialty Diagnoses / Procedures Referred By Contac t Referred To Contact Radiology Diagnoses Chronic pain of both knees Procedures XR knees anteroposterior standing bilateral Eitan Price MD [address] [facility], [address] [place] [address] Referral ID Status Reason Start Date Expiration Date Visits Requested Visits Authorized [id number] Authorized Perform Procedure 10/03/2023 10/02/2024 1 1 Reason Comments Follow-up Care Teams (unrecognized sec tion and content) Hand Flesher Relationship Specialty Start Date End Date Eitan Price MD [address] [place], [place] [id number] PCP - General Internal Medicine 08/14/18 Hand Flesher Relationship Specialty Start Date End Date Eitan Price MD [address] [facility] [place] [place] [address] PCP - General Internal Medicine 08/14/18 Hand Flesher Relationship Specialty Start Date End Date Eitan Price MD [address] [facility] [place] [place] [id number] PCP - General Internal Medicine 08/14/18 Hand Flesher Relationship Specialty Start Date End Date Eitan Price MD [address] [facility], [address] [place] [address] PCP - General 06/09/14 Eitan Price MD [address] [facility], [address] [place] [address] PCP - [place] [employer] PCP 02/05/22 Hand Flesher Relationship Specialty Start Date End Date Eitan Price MD [address] [place] [address] PCP - General Internal Medicine 08/14/18 Hand Flesher Relationship Specialty Start Date End Date Eitan Price MD [address] [place] [address] PCP - General Internal Medicine 08/14/18 Hand Flesher Relationship Specialty Start Date End Date Eitan Price MD [address] [facility], [address] [place] [address] PCP - General 06/09/14 Eitan Price MD [address] [facility], [address] [place] [address] PCP - [place] [employer] PCP 02/05/22 [...] MD Attending Provider, Referring Pr ovider Active Hand Flesher Relationship Specialty Start Date End Date Eitan Price MD [address] [facility], [address] [place] [address] PCP - General 06/09/14 Eitan Price MD [address] [facility], [address] [place] [address] PCP - [place] [employer] PCP 02/05/22 Chana Dave, inspectors and regulatory officersHome Performance Laborer 12/04/22 Hand Flesher Relationship Specialty Start Date End Date Eitan Price MD [address] [facility], [address] [place] [address] PCP - General 06/09/14 Eitan Price MD [address] [facility], [address] [place] [address] PCP - [place] [employer] PCP 02/05/22 Chana Dave inspectors and regulatory officersHome Performance Laborer 12/04/22 Hand Flesher Relationship Specialty Start Date End Date Eitan Price MD [address] [facility], [address] [place] [address] PCP - General 06/09/14 Eitan Price MD [address] [facility], [address] [place] [address] PCP - [place] [employer] PCP 02/05/22 Hand Flesher Relationship Specialty Start Date End Date Eitan Price MD [address] [facility], [address] [place] [address] PCP - General 06/09/14 Eitan Price MD [address] [facility], [address] [place] [address] PCP - [place] [employer] PCP 02/05/22 Hand Flesher Relationship Specialty Start Date End Date Eitan Price MD [address] [facility], [address] [place] [address] PCP - General Internal Medicine 08/14/18 Hand Flesher Relationship Specialty Start Date End Date Eitan Price MD [address] [facility], [address] [place] [address] PCP - General 06/09/14 Hand Flesher Relationship Specialty Start Date End Date Eitan Price MD [address] [facility], [address] [place] [address] PCP - General 07/13/14 Hand Flesher Relationship Specialty Start Date End Date Eitan Price MD [address] [facility], [address] [place] [address] PCP - General 06/09/14 Hand Flesher Relationship Specialty Start Date End Date Eitan Price MD [address] [facility], [address] [place] [address] PCP - General 06/09/14 Team Status: Active Member Role/Relationship Status Dates Dr. Eitan Price MD Primary Care Provider Active Team Status: Inactive Member Role/Relationship Status Dates Dr. Eitan Price MD Primary Care Provider Active Start: August 17, 2024 End: August 18, 2024 Dr. Shakeel Rehman DO Emergency Provider Active Start: August 17, 2024 End: August 18, 2024 Team Status: Inactive Member Role/Relationship Status Dates Dr. Eitan Price MD Primary Care Provider Active Start: August 18, 2024 End: August 18, 2024 Kal Fan MD Emergency Provider Active Star t: August 18, 2024 End: August 18, 2024 Scheduled Active and Recently Administ ered Medications (unrecognized section and content) Medication Order 11/30/2022 12/01/2022 12/02/2022 acetaminophen (Tylenol) tablet 975 mg 975 mg, oral, Every 8 hours scheduled, First dose on Sun11/30/22 at 0600 0600 (Given - Provider: Gagandeep Key RN)1446 (Given - Provider: Amira Richter RN)2124 (Given - Provider: Los Jean, MAYRA) 0711 (Given - Provider: Los Jean, RN)1330 (Given - Provider: Amira Richter RN)2125 (Given - Provider: Los Jean, MAYRA) 0812 (Given - Provider: Amira Richter RN)1400 (Due)2200 (Due) amLODIPine (Norvasc) tablet 5 mg (CANCELED) 5 mg, oral, Daily, First dose on Debora 11/30/22 at 0900 0809 (Given - Provider: Amira Richter RN) 1051 (Given - Provider: Elizabeth Suarez, RN) atorvastatin (Lipitor) tablet 80 mg 80 mg, oral, Daily, First dose on Sun11/29/22 at 1755 0809 (Given - Provider: Amira Richter, MAYRA) 1052 (Given - Provider: Elizabeth Suarez, RN - Comment: other pt care) 0812 (Given - Provider: Amira Richter, MAYRA) buPROPion XL (Wellbutrin XL) 24 hr tablet 300 mg 300 mg, oral, Daily, First dose on Debora /26/23 at 0900, Do not crush, chew, or [...] 0812 (Given - Provider: Amira Richter RN) montelukast (Singulair) tablet 10 mg 10 mg, oral, Nightly, First dose on Sun11/29/22 at 2100 2125 (Given - Provider: Los Jean, MAYRA) 2125 (Given - Provider: Los Jean, MAYRA) 2100 (Due) NIFEdipine ER (Adalat CC) 24 [...] Comment: given with AM meds before breakfast) 07 (Given - Provider: Los Jean RN) 0812 [...] may be documented in a n alternate sectionGoals may be documented in an alternate sectionGoals may be documented in an alternate section FOR RECORDS PERTAINING TO PATIENTS [...] BE BASED ON THE PRIMARY CLINICAL RECORDS. [employer] [facility]. provides no warranty or guarantee of the accuracy or completeness of information in this document.
== END 2024-08-18 16:11 | disposition home or self-care (01) ==
PROVIDERS: Emergency Provider Emergency Medicine; PCP Internal Medicine; Visit Provider Emergency Medicine
DX: D64.9 Anemia, unspecified (principal); I48.0 Paroxysmal atrial fibrillation; E11.9 Type 2 diabetes mellitus without complications; R53.83 Other fatigue; I25.10 Atherosclerotic heart disease of native coronary artery without angina pectoris; I10 Essential (primary) hypertension; I25.2 Old myocardial infarction; Z79.899 Other long term (current) drug therapy; Z79.01 Long term (current) use of anticoagulants; Z79.82 Long term (current) use of aspirin; Z95.5 Presence of coronary angioplasty implant and graft
CPT/HCPCS: 85025; 99283; A4216

== ENCOUNTER → 2024-10-13 | Outpatient (CLI) | payer MEDICARE, SELFPAY ==
[2016-06-23 10:21] VITALS: BMI 39.4
--- OUTSIDE RECORDS SUMMARY | 2024-10-13 06:50 | XMS RPT_ITS | CCD ---
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 Name Role Phone Fonseca Esperanza Unavailable Unavailable Fonseca, Esperanza Unavailable Unavailable Jarrod Chambersumi Y Unavailable Unavailable MD Van, Oscar Hair Unavailable MAYRA Beauchamp, Claire Viramontes Unavailable Unavailabl e Esperanza Fonseca Unavailable Unavailable MAYRA Beauchamp, Claire Viramontes Unavailable UnavailEitan Deluca Primary Care Provider Eitan Price Unavailable Eitan Price Unavailable Unavailable Jaime Chambers Y Unavailable Unavailable Eitan Price Unavailable Unavailable Unavailable Unavailable Unavailable Eitan Price MD Primary Care Provider [phone] Eitan Price MD Primary Care Provider Eitan Price MD Unavailable Eitan Price MD Primary Care Provider [phone] Albert, Dr. Eitan Swanson Primary Care Unavaila ble Albert, Dr. Eitan Swanson Referring Unavaila ble Mabsofie, Dr. Eitan Swanson Attending Unavaila ble Kubera, Ms. Tori Joshua Referring Unavaila ble Kubera, Ms. Tori Joshua Attending Unavaila ble Albert, Dr. Eitan Swanson Primary Care Unavaila aye Price, Dr. Laird Primary Care Provider Albert, Dr. Laird Referring Provider [phone] Kelton, Dr. Cordova Attending Provider [phone] Jolie NUNEZ, Chana Unavailable Unavailable EITAN PRICE Referring Unavailable EITAN PRICE Primary Care Unavailable EITAN PRICE Primary Care Unavailable FATUMA LEAL Consulting Unavailable UNGVARSKY, JOSE F Admitting Unavailable GLENYSSKKatie, JOSE F Attending Unavailable KATHY, RAJU Consulting Unavailable BUCCA, CORBIN W Referring Unavailable MABEE, EITAN W Primary Care Unavailable ERICA THOMPSON Attending Unavailable MABSOFIE, EITAN Abbasi Primary Care Unavailable MabEitan carrizales MD Primary Care Provider [phone] Eitan Price MD Primary Care Provider Dr. Eitan Price MD Primary Care Provider Dr. Shakeel Rehman DO Emergency Provider Kal Fan MD Emergency Provider [phone] Eitan Price MD Primary Care Provider [phone] MARK VAZQUEZ Attending Unavailable MABSOFIE, EITAN Abbasi Primary Care Unavailable SELF Referring Unavailable MARK VAZQUEZ Attending Unavailable MABSOFIE, EITAN Abbasi Primary Care Unavailable MabEitan carrizales MD Primary Care Provider [phone] EITAN PRICE Primary Care Unavailable MABSOFIE, EITAN Abbasi Referring Unavailable MABSOFIE, EITAN Abbasi Primary Care Unavailable MABSOFIE, EITAN Abbasi Referring Unavailable MABSOFIE, EITAN Abbasi Primary Care Unavailable MABSOFIE, EITAN Abbasi Referring Unavailable MABEITAN CARRIZALES Primary Care Unavailable Dr. Shakeel Rehman DO Attending Provider Kal Fan MD Attending Provider [phone] Dr. Eitan Price MD Referring Provider Apollo Dsouza Attending Provider ALBERT, EITAN Abbasi Primary Care Unavailable MABSOFIE, EITAN Abbasi Primary Care Unavailable MABSOFIE, EITAN Abbasi Attending Unavailable MABEE, EITAN Abbasi Primary Care Unavailable MABSOFIE, EITAN W Attending Unavailable MABEE, EITAN Abbasi Primary Care Unavailable MABSOFIE, EITAN Abbasi Attending Unavailable MABEE, EITAN Abbasi Primary Care Unavailable MABSOFIE, EITAN Abbasi Attending Unavailable MABSOFIE, EITAN Abbasi Primary Care Unavailable Kelton, Art Attending Unavailable Kelton, Art Referring Unavailable Albert, Eitan Primary Care Unavailable Mabsofie, Eitan Primary Care Unavailable Kelton, Art Attending Unavailable Edmar GALLARDO, Terrie Attending Unavailable Mabsofie, Eitan Primary Care Unavailable Apollo Geller Attending Unavailable Eitan Price Referring Unavailable Albert, Eitan Primary Care Unavailable Kelton, Art Attending Unavailable Mabsofie, Eitan Primary Care Unavailable Mabee Eitan Referring Unavailable Art Melara Attending Unavailable Art Melara Referring Unavailable [facility] Primary Care Unavailable Kal Fan Attending Unavailable [facility] Unavailable Shakeel Rehman Attending Unavailable [facility] Unavailable Apollo Geller Attending Unavailable Apollo Geller Referring Unavailable [facility] Care Unavailable Allergies Allergy Classification Reported Allergen(s) Allergy Type Date of Onset Reaction(s) Facility (20 sources) morphine; Translations: [morphine] drug allergy 7 Other, Hives, Itching, Unknown Circle Work Phone: Comment on above: hives (12 sources) NKDA; Translations: [NKDA] allergy to substance 7 Circle Work Phone: (14 sources) Ibuprofen; Translations: [IBUPROFEN] Drug Allergy 2 Itching [facility] Medications Current Medications Medication Drug Class(es) Dates Sig (Normalized) Sig (Original) acetaminophen 325 mg oral tablet (13 sources) Start: 11-30-2022 acetaminophen (Tylenol) tablet 975 mg Start: 07-10-2016 take 2 tablets by mo uth twice daily as needed ACETAMINOPHEN ER 650 MG CR-TABS Two tablets by mouth twice daily as needed ACETAMINOPHEN [id number] Claire Beauchamp RN Start: 06-29-2016 End: 12-18-2017 take 325-650 mg by mouth every six hours as needed for pain Acetaminophen 325 MG tablet Discontinued 325 - 650 mg PO EVERY 6 HOURS NEEDED as needed for Pain 0 June 29, 2016 12:00am December 18, 2017 2:44pm amLODIPine 5 mg oral tablet (20 sources) Dihydropyridine Calcium Channel Silvana Start: 07-26-2023 End: 09-04-2024 take 1 tablet by mouth once daily amLODIPine (Norvasc) 5 mg tablet Indications: Essential hypertension Take 1 tablet (5 mg) by mouth once daily. 90 tablet 3 09/04/2024 Active Start: 12-06-2022 End: 07-26-2023 take 1 tablet [...] tablet (20 sources) Factor Xa Inhibitor Start: 07-26-2023 take 1 tablet by mouth twice daily Eliquis 2.5 mg tablet Indications: ASHD (arteriosclerotic heart disease) TAKE 1 TABLET BY MOUTH TWICE DAILY 180 tablet 3 02/04/2024 Active Start: 09-20-2019 End: 12-06-2022 take 1 [...] tablet (20 sources) HMG-CoA Reductase Inhibitor Start: 09-11-2024 take 0.5 tablet by mouth once daily atorvastatin (Lipitor) 80 mg tablet Indications: ASHD (arteriosclerotic heart disease) Take 0.5 tablets (40 mg) by mouth once daily. 09/11/2024 Active Start: 11-22-2023 End: 09-11-2024 take 1 tablet by mouth once daily atorvastatin (Lipitor) 80 mg tablet Indications: ASHD (arteriosclerotic heart disease) TAKE 1 TABLET BY MOUTH ONCE DAILY 90 tablet 3 11/22/2023 09/11/2024 Discontinued (Dose adjustment) Start: 11-06-2023 End: 11-06-2023 take 1 tablet [...] 26, 2023 1:55pm Start: 06-11-2013 atorvastatin ( LIPITOR) 80 mg tablet atorvastatin (Lipitor) 80 mg tablet once every 24 hours. 0 06/22/2016 Active 06/11/2013 Active azithromycin 250 mg oral tablet (1 [...] tablet (20 sources) Aminoketone Start: 06-25-2023 End: 08-18-2024 take 1 tablet by mouth once daily in the morning buPROPion XL (Wellbutrin XL) 150 mg 24 hr tablet Indications: Depression, unspecified depression type TAKE 1 TABLET BY MOUTH ONCE DAILY IN THE MORNING DO NOT CRUSH, CHEW, OR SPLIT 90 tablet 3 04/07/2024 Active Start: 11-30-2022 take 300 mg by [...] mg / cholecalciferol 125 unt oral tablet (5 sources) Vitamin D End: 11-29-2022 take 1 tablet by mouth twice daily at mealtime calcium-cholecalciferol, D3, (OSCAL+D 250) 250 mg-3.125 mcg (125 unit) per tablet Take 1 tablet by mouth two times a day with meals. Active carvedilol 25 mg oral tablet (20 sources) alpha-Adren ergic Silvana, beta-Adrene rgic Silvana Start: 07-01-2024 take 0.5 tablet by mouth twice daily at mealtime carvedilol (Coreg) 25 mg tablet Indications: Hypertension, unspecified type TAKE ONE-HALF TABLET BY MOUTH TWICE DAILY WITH MEALS 90 tablet 3 07/01/2024 Active Start: 07-26-2023 take 1 tablet by eliot th once daily Carvedilol 25 mg tablet Active [...] 11-03-2019 End: 12-06-2022 Carvedilol 25 mg tablet Discontinued 12.5 mg PO TWICE A DAY November [...] 11-Jun-2013 Active clotrimazole 10 mg/ml topical cream (4 sources) Azole Antifungal Start: 07-09-2013 clotrimazole (LOTRIMIN) 1 % cream Clotrimazole 1 % External Cream APPLY 2-3 TIMES DAILY TO AFFECTED AREA(S). Quantity: 30 Refills: 0 Eitan Price MD Start : 09-Jul-2013 Active 07/09/2013 Active ferrous sulfate 325 mg delayed release oral tablet (20 sources) Start: 10-07-2024 End: 10-07-2025 take 1 tablet by mouth once daily at breakfast ferrous sulfate 325 (65 Fe) mg EC tablet Indications: Anemia, unspecified type Take 1 tablet by mouth once daily with breakfast. Do not crush, chew, or split. 30 tablet 2 10/07/2024 10/07/2025 Active Start: 07-10-2016 End: 12-06-2022 Ferrous Sulfate 325 mg (65 m g iron) tablet Discontinued 325 mg PO .3XW December 14, 2021 1:00am December 06, 2022 8:26am Start: 07-10-2016 End: 08-18-2024 take 1 tablet by mouth once daily Ferrous Sulfate 325 mg (65 mg iron) tablet Discontinued 325 mg PO DAILY December 06, 2022 8:24am August 18, 2024 3:36pm FLUoxetine 20 mg oral capsule (14 sources) Serotonin Reuptake Inhibitor Start: 02-03-2022 End: 12-02-2023 take 1 capsule by mouth once daily FLUoxetine (PROzac) 20 mg capsule Indications: Depression, unspecified depression type TAKE 1 CAPSULE BY MOUTH EVERY DAY 30 capsule 1 11/29/2023 Active 1 ml hydrALAZINE hydrochloride 20 mg/ml [...] 08/24/2021 Active LORazepam 0.5 mg oral tablet (9 sources) Benzodiazepine Start: 04-16-2024 take 1 tablet by mouth three times daily as needed for anxiety LORazepam (Ativan) 0.5 mg tablet Indications: Anxiety Take 1 tablet (0.5 mg) by mouth 3 times a day as needed for anxiety. 30 tablet 04/16/2024 Active Start: 07-26-2023 End: 11-06-2023 take 1 tablet by mouth once daily as needed Lorazepam 0.5 mg tablet Discontinued 0.5 mg PO DAILY as needed July 26, 2023 12:00am November 06, 2023 9:02am Start: 07-04-2023 take 1 tablet by eliot th three times daily as needed for anxiety [...] Debora 11/30/22 at 0900 Start: 12-03-2017 End: 09-04-2024 take 1 tablet by mouth once daily losartan (Cozaar) 100 mg tablet Indications: Essential hypertension Take 1 tablet (100 mg) by mouth once daily. 90 tablet 3 09/04/2024 Active Start: 07-05-2017 End: 12-14-2021 take 1 tablet by mouth once daily Losartan (Cozaar) 25 mg tablet Discontinued 25 mg PO daily 04 01December 03, 2017 3:07pm December 18, 2017 3:13pm losartan (Cozaar ) 25 mg tablet once every 24 hours. 0 Active metFORMIN hydrochloride 500 mg oral tablet (20 sources) Biguanide Start: 07-01-2024 End: 08-18-2024 take 1 tablet by mouth once daily at mealtime metFORMIN (Glucophage) 500 mg tablet Indications: Type 2 diabetes mellitus without complication, without long-term current use of insulin TAKE 1 TABLET BY MOUTH ONCE DAILY WITH A MEAL 90 tablet 3 07/01/2024 Active Start: 06-28-2022 End: 11-06-2023 take 1 tablet [...] 22, 2016 12:00am December 06, 2022 8:26am 5 ml metoprolol tartrate 1 mg/ml injection (1 source) beta-Adrenergic Silvana Start: 11-30-2022 take 5 mg intravenously every six hours as needed metoprolol tartrate (Lopressor) injection 5 mg montelukast 10 mg oral tablet (20 sources) Leukotriene Receptor Antagonist Start: 05-13-2024 take 1 tablet by mouth once daily at bedtime montelukast (Singulair) 10 mg tablet Indications: Chronic rhinitis TAKE 1 TABLET BY MOUTH ONCE DAILY AT BEDTIME 90 tablet 3 05/13/2024 Active Start: 06-22-2016 montelukast (S ingulair) 10 mg tablet once every 24 hours. 0 06/22/2016 Active Start: 02-27-2013 End: 06-28-2023 take 1 tablet by mouth once daily at bedtime montelukast (Singulair) 10 mg tablet Indications: Chronic rhinitis TAKE 1 TABLET BY MOUTH ONCE DAILY AT BEDTIME 90 tablet 3 05/13/2024 Active 200 ml niCARdipine hydrochloride 0.2 mg/ml [...] CPDR One tablet by mouth daily OMEPRAZOLE [id number] Claire Beauchamp RN Start: 06-22-2016 End: 07-08-2018 [...] pantoprazole 40 mg delayed release oral tablet (11 sources) Proton Pump Inhibitor Start: 11-30-2022 take [...] bacitracin ointment cefdinir 300 mg oral capsule (5 sources) Cephalosporin Antibacterial Start: 09-11-2019 End: 10-24-2019 take 1 capsule by mouth twice daily Cefdinir 300 mg capsule Discontinued 300 mg PO TWICE A DAY September 11, 2019 12:00am October 24, 2019 1:04pm Start: 07-29-2019 Cefdinir 300 M G Oral Capsule Quantity: 28 Refills: 0 Ordered: 29-Jul-2019 DO Start : 29-Jul-2019 Complete cephalexin 500 mg oral capsule (4 sources) Cephalosporin Antibacterial Start: 07-06-2016 End: 07-05-2017 take 1 capsule by mouth every eight hours Cephalexin 500 MG capsule Discontinued 500 mg PO EVERY 8 HOURS 9 0 July 06, 2016 12:00am July 05, 2017 1:35pm cholecalciferol 0.025 mg oral tablet (4 sources) Vitamin D Start: 06-21-2022 End: 12-06-2022 [...] November 06, 2023 9:01am Start: 11-30-2022 take 40 mg by mouth every twenty-four hours 40 mg, oral, Every 24 hours, First dose on Debora 11/30/22 at 0900 Start: 12-08-2020 End: 07-12-2021 Citalopram 40 mg tablet Discontinued 20 mg PO DAILY December 08, 2020 12:00am July 12, 2021 2:08pm Start: 12-08-2020 End: 07-12-2021 take 20 mg by mouth once daily Citalopram Discontinued 20 MG PO DAILY December 07, 2020 11:00pm July 12, 2021 1:08pm Start: 07-08-2018 End: 10-24-2019 Citalopram 40 mg tablet Discontinued 20 mg PO DAILY July 08, 2018 12:00am October 24, 2019 1:03pm Start: 07-08-2018 End: 10-24-2019 take 20 mg by mouth once daily Citalopram Discontinued 20 MG PO DAILY July 07, 2018 11:00pm October 24, 2019 12:03pm Start: 06-22-2016 End: 07-08-2018 take 1 tablet by mouth once daily Citalopram 20 MG tab let Discontinued 20 mg PO DAILY June 22, 2016 12:00am July 08, 2018 1:36pm Start: 02-27-2013 End: 11-29-2023 take 1 tablet by mouth once daily Citalopram 40 mg tab let Discontinued 40 mg PO DAILY July 12, 2021 2:06pm December 06, 2022 8:26am Start: 02-27-2013 End: 12-02-2022 take 1 tablet by mouth every twenty-four hours citalopram (CeleXA) 40 mg tablet Indications: Depression, unspecified depression type Take 1 tablet (40 mg) by mouth once every 24 hours. 90 tablet 3 06/28/2022 12/02/2022 Discontinued (Stop Taking at Discharge) clopidogrel 75 mg oral tablet (18 sources) [id number] Platelet Inhibitor Start: 07-06-2016 clopidogrel (Plavix) 75 mg tablet once every 24 hours. 0 07/06/2016 Active Start: 06-29-2016 End: 09-20-2019 take 1 tablet by mouth once daily Clopidogrel 75 MG tablet Discontinued 75 mg PO DAILY 30 4 July 06, 2016 10:03pm September 20, 2019 11:39am diphenhydrAMINE (1 source) Histamine-1 Receptor Antagonist Start: 08-25-2024 End: 08-25-2024 25 mg, INTRAVENOUS, ONCE, 1 dose, On Sun08/25/24 at 0900 docusate sodium 50 mg / sennosides, skilled nursing 8.6 mg oral tablet (4 sources) Start: 06-29-2016 End: 07-06-2016 take 1 tablet by mouth twice daily Sennosides-Docusat e Sodium (Stool Softener-Stimulant Laxat) 1 TABLET tablet [...] 12, 2021 2:08pm December 14, 2021 3:14pm Fish Oil 500 MG Oral Capsule (3 [...] capsule once every 24 hours. 0 Active 2 ml furosemide 10 mg/ml injection (20 sources) Loop Diuretic Start: 08-25-2024 End: 08-25-2024 20 mg, INTRAVENOUS, ONCE, 1 dose, On Sun08/25/24 at 0900 Start: 06-28-2022 End: 12-02-2022 take 40 mg by mouth once daily 40 mg, oral, Daily, Fir st dose on Sun11/29/22 at 1755 Start: 12-14-2021 [...] Start: 07-05-2018 take 2 tablets by mo uth once daily Furosemide 40 MG Oral Tablet TAKE 2 TABLET BY MOUTH EVERY DAY Quantity: 90 Refills: 3 Ordered: 22-Sep-2021 Eitan Price MD Start : 05-Jul-2018 Active 3 ml insulin aspart, human 100 unt/ml pen injector (4 sources) Insulin Analog Start: 06-29-2016 End: 07-06-2016 Insulin Aspart U-100 (Novolog Flexpen U-100 Insulin) 100 UNITS/ML Flexpen Discontinued 0 U SC BEFORE MEALS AND AT BEDTIME 0 June 29, 2016 12:00am July 06, 2016 10:02pm 10 ml lidocaine hydrochloride 10 mg/ml injection (8 sources) Antiarrhythmic, Amide Local Anesthetic Start: 08-19-2024 End: 08-19-2024 lidocaine (PF) 10 mg/mL (1 %) 5 mL injection (XYLOCAINE) Start: 08-19-2024 End: 08-19-2024 5 mL, Injection - FOR ORTHO USE ONLY, ONCE, 1 dose, Starting on Sun08/19/24 at 0845, Until Sun08/19/24 at 0845 Start: 11-13-2023 End: 11-13-2023 lidocaine (PF) 10 mg/mL (1 % ) 5 mL injection (XYLOCAINE) Start: 11-13-2023 End: [...] MG tablet Discontinued 40 mg PO DAILY July 06, 2016 10:03pm July 05, 2017 1:36pm Start: 12-06-2015 End: 06-29-2016 take 1 tablet by mouth once daily Lisinopril 20 MG tablet Discontinued 20 mg PO DAILY June 22, 2016 12:00am June 29, 2016 8:31am melatonin 3 mg oral tablet (20 sources) Start: 06-29-2016 End: 07-05-2017 take 1 tablet by mouth at bedtime Melatonin 3 MG tablet Discontinued 3 mg PO AT BEDTIME 30 July 06, 2016 10:03pm July 05, 2017 1:36pm menthol 0.0044 mg/mg / zinc oxide 0.2 mg/mg topical ointment (4 sources) Start: 07-06-2016 End: 07-05-2017 Menthol-Zinc Oxide 1 APPLIC ointment Discontinued 1 NMA TOPICAL THREE TIMES A DAY July 06, 2016 12:00am July 05, 2017 1:36pm Start: 07-06-2016 End: 07-05-2017 Menthol-Zinc Oxide Discontin ued 1 APPLIC TOPICAL THREE TIMES A DAY July 05, 2016 11:00pm July 05, 2017 12:36pm 1 ml methylPREDNISolone acetate 40 mg/ml injection (5 sources) Corticosteroid Start: 08-19-2024 End: 08-19-2024 methylPREDNISolone acetate 40 mg injection (DEPO-Medrol) Start: 08-19-2024 End: 08-19-2024 40 mg, Injection - FOR ORTHO USE ONLY, ONCE, 1 dose, Starting on Sun08/19/24 at 0845, Until Sun08/19/24 at 0845 Start: 06-02-2022 End: 06-09-2022 methylPREDNISolone (Medrol D osp[place]) 4 mg tablets Indications: Acute cough , Upper respiratory tract infection, unspecified type Take as directed on package. 21 tablet 0 06/02/2022 06/09/2022 Active methylPREDNISolone 4 MG Oral Tablet Therapy Pack (1 source) Start: 01-09-2022 methylPREDNISolone 4 MG Oral Tablet Therapy Pack UAD Quantity: 1 Refills: 0 Ordered: 09-Jan-2022 Eitan Price MD Start : 09-Jan-2022 Active metroNIDAZOLE 500 mg oral tablet (1 source) Nitroimidazole Antimicrobial Start: 07-29-2019 metroNIDAZOLE 500 MG Oral Tablet Quantity: 42 Refills: 0 Ordered: 29-Jul-2019 DO Start : 29-Jul-2019 Complete [place]-3 Fatty Acids (Fish Oil Concentrate) 1,000 mg capsule (4 sources) Start: 07-08-2018 End: 12-08-2020 take 1 capsule by mouth three times daily [place]-3 Fatty Acids (Fish Oil Concentrate) 1,000 mg capsule Discontinued 1000 mg PO THREE TIMES A DAY July 08, 2018 12:00am December 08, 2020 1:21pm Start: 07-08-2018 End: 12-08-2020 take 1 capsule by mouth three times daily [place]-3 Fatty Acids (Fish Oil Concentrate) 1,000 mg capsule Discontinued 1000 MG PO THREE TIMES A DAY July 07, 2018 11:00pm December 08, 2020 12:21pm penciclovir 10 mg/ml topical cream (1 source) Herpesvirus Nucleoside Analog DNA Polymerase Inhibitor Start: 03-14-2013 Denavir 1 % Externa l Cream Quantity: 5 Refills: 0 Start : 14-Mar-2013 Active POLYETHYLENE GLYCOL 3350 (5 sources) Osmotic Laxative Start: 07-10-2016 MIRALAX PACK Take as directed POLYETHYLENE GLYCOL 3350 [id number] Claire Beauchamp RN Start: 07-06-2016 End: 07-05-2017 take 17 g by mouth once daily Polyethylene Glycol 3350 17 GM packet Discontinued 17 g PO DAILY 30 0 July 06, 2016 12:00am July 05, 2017 1:36pm POLYETHYLENE GLYCOL 3350 (13 sources) Start: 07-10-2016 End: 07-11-2016 MIRALAX PACK Take as directe d POLYETHYLENE GLYCOL 3350 [id number] Oscar Rondon MD Start: 07-10-2016 MIRALAX PACK T mily as directed POLYETHYLENE GLYCOL 3350 [id number] Claire Beauchamp RN POLYSACCHARIDE IRON COMPLEX (12 sources) Start: 07-10-2016 take 1 tablet by mouth once daily FERREX 150 150 MG CAPS One tablet by mouth daily POLYSACCHARIDE IRON COMPLEX [id number] Claire Beauchamp RN Start: 07-06-2016 End: 12-18-2017 take 1 capsule by mouth once daily at mealtime Polysaccharide Iron Complex 150 MG capsule Discontinued 150 mg PO DAILY WITH MEALS 30 0 July 06, 2016 12:00am December 18, 2017 [...] state, unspecified] Onset: 3 06-01-2022 Chronic Asthma (13 sources) Asthma; Translations: [Unspecified asthma, uncomplicated] Onset: [...] Stage II (mild)] Onset: 3 06-01-2022 Chronic Congestive heart failure; nonhypertensive (8 sources) Heart failure with reduced ejection fraction; Translations: [Unspecified systolic (congestive) heart failure] Onset: 4 10-04-2023 Chronic Coronary atherosclerosis and other heart disease (20 sources) Atherosclerotic heart disease of [place] coronary artery without angina pectoris; Translations: [Coronary arteriosclerosis] Onset: 7 07-10-2016 Chronic Comment on above: PCI/SHEILA to LAD w/ 3. 0 x 16 mm Synergy 06/23/2016 Deficiency and other anemia (20 sources) Anemia; Translations: [Anemia, unspecified] Onset: 3 06-02-2022 Episodic Deficiency and other anemia (3 sources) Anemia, unspecified; Translations: [Anemia, unspecified] Onset: 3 Episodic Diabetes mellitus with complications (3 sources) Type 2 diabetes mellitus; Translations: [Type 2 diabetes mellitus with diabetic chronic kidney disease] Onset: 6 09-11-2024 Chronic Diabetes mellitus without complication (20 sources) Diabetes mellitus; Translations: [Diabetes mellitus without mention of complication, type II or unspecified type, not stated as uncontrolled] Onset: 6 06-02-2022 Chronic Disorders of lipid metabolism (20 sources) Hyperlipidemia; Translations: [Other and unspecified hyperlipidemia] Onset: 6 07-10-2016 Chronic Comment on above: Added by Problem Lis t Migration; 2012-12-16; Moved to [facility] Dec 27 2012 9:07PM; Diverticulosis and diverticulitis [...] [Mitral valve disorders] Onset: 3 06-01-2022 Chronic Hypertension with complications and secondary hypertension (1 source) Hypertensive heart AND renal disease; Translations: [Hypertensive heart and chronic kidney disease with heart failure and stage 1 through stage 4 chronic kidney disease, or unspecified chronic kidney disease] 09-11-2024 Chronic Intracranial injury (2 sources) Traumatic subdural hemorrhage; Translations: [Traumatic subdural hemorrhage without loss of consciousness, initial encounter] Onset: 5 10-07-2024 Episodic Malaise and fatigue (5 sources) Fatigue; Translations: [Other fatigue] Onset: 5 08-18-2024 Episodic Mood disorders (20 sources) Depressive disorder; Translations: [Depressive disorder, not elsewhere classified] Onset: 3 06-01-2022 Chronic Nutritional deficiencies (13 sources) Vitamin D deficiency; Translations: [Vitamin D deficiency, unspecified] Onset: 3 06-02-2022 Chronic Osteoarthritis (20 sources) Osteoarthritis of foot joint; Translations: [Osteoarthrosis, unspecified whether generalized or localized, ankle and foot] Onset: 3 06-01-2022 Chronic Other and ill-defined heart disease (3 sources) Diastolic dysfunction; Translations: [Other ill-defined heart diseases] 11-06-2023 Chronic Other and ill-defined heart disease (1 [...] Cough; Translations: [Acute cough] 06-02-2022 Episodic Other lower respiratory disease (1 source) Dyspnea, unspecified; Translations: [Dyspnea, unspecified] Onset: 5 Episodic Other nervous system disorders (2 sources) Other chronic pain; Translations: [Other chronic pain] Onset: 4 Chronic Other non-traumatic joint disorders (4 sources) Pain in right knee; Translations: [Pain in joint, lower leg] Onset: 4 Episodic Other non-traumatic joint disorders (2 sources) Pain in left knee; Translations: [Pain in left knee] Onset: 4 Episodic Other nutritional; endocrine; and metabolic disorders (15 [...] excess calories] Onset: 3 06-01-2022 Chronic Other screening for suspected conditions (not mental disorders or infectious disease) (20 sources) Serum creatinine abnormal; Translations: [Other nonspecific findings on examination of blood] Onset: 3 06-02-2022 Episodic Other upper respiratory disease (20 sources) Rhinitis; [...] (1 source) Long-term drug therapy; Translations: [Other long term care social worker (current) drug therapy] Onset: 7 07-10-2016 Unclassified (2 sources) Acute cough; Translations: [Acute cough] Onset: 3 Unclassified (1 source) Traumatic subdural hemorrhage with loss of consciousness status unknown, initial encounter ([facility]); Translations: [Traumatic subdural hemorrhage with loss of consciousness status unknown, initial encounter ([facility])] Onset: 3 Unclassified (1 source) Patient encounter status 08-21-2024 Past or Other Problems Problem Classification Problem Date Documented Da te Episodic/Chronic Abdominal hernia (13 sources) Hiatal hernia; Translations: [Diaphragmatic hernia without obstruction or gangrene] Onset: 3 06-01-2022 Episodic Abdominal pain (16 sources) Epigastric pain; Translations: [Abdominal pain, epigastric] Onset: 3 06-01-2022 Episodic Acute cerebrovascular disease (20 sources) Hemorrhage into subdural space of neuraxis; Translations: [Nontraumatic subdural hemorrhage, unspecified] Onset: 3 Resolved: 3 11-29-2022 Chronic Acute posthemorrhagic anemia (20 sources) Acute posthemorrhagic anemia; Translations: [Acute posthemorrhagic anemia] Onset: 7 07-10-2016 Episodic Cancer of colon (13 sources) History of malignant neoplasm of colon; Translations: [Personal history of other malignant neoplasm of large intestine] Onset: 3 06-01-2022 Episodic Chronic obstructive pulmonary disease and bronchiectasis (6 sources) Acute exacerbation of chronic obstructive airways disease; Translations: [Chronic obstructive pulmonary disease with (acute) exacerbation] Onset: 4 Resolved: 5 10-04-2023 Chronic Coronary atherosclerosis and other heart disease (2 sources) Presence of coronary angioplasty implant and graft; Translations: [Percutaneous transluminal coronary angioplasty status] Onset: 7 12-06-2022 Episodic Deficiency and other anemia (20 sources) Pernicious anemia; Translations: [Pernicious anemia] Onset: 3 06-01-2022 Episodic E Codes: Fall (3 sources) Fall; Translations: [Unspecified fall, initial encounter] Onset: 3 11-29-2022 Episodic Genitourinary symptoms and ill-defined conditions (20 sources) Pyuria; Translations: [Other nonspecific findings on examination of urine] Onset: 3 Resolved: 0 06-01-2022 Episodic Nonspecific chest pain (20 sources) Chest pain; Translations: [Chest pain, unspecified] Onset: 3 06-01-2022 Episodic Nutritional deficiencies (20 sources) Iron deficiency; Translations: [Iron deficiency] Onset: 2 Episodic Other aftercare (7 sources) Other nursing home (current) drug therapy; Translations: [Other long term care social worker (current) drug therapy] Onset: 7 07-10-2016 Episodic [...] Resolved: 1 Episodic Other connective tissue disease (13 sources) Pain in bilateral legs; Translations: [Pain [...] of respiratory system] Resolved: 5 Episodic Other skin disorders (20 sources) Eruption; Translations: [Rash and other nonspecific skin eruption] Resolved: 5 Episodic Other skin disorders (1 source) Localized swelling, mass and lump, lower limb; Translations: [Localized swelling, mass and lump, right lower limb] Onset: 2 06-01-2022 Episodic Other skin disorders (12 sources) Disorder of right lower extremity; Translations: [Localized swelling, mass and lump, right lower limb] Onset: 2 06-01-2022 Episodic Other upper respiratory infections (16 sources) Upper respiratory infection; Translations: [Acute upper [...] Onset: 2 06-01-2022 Episodic Residual codes; unclassified (17 sources) History of cardiac catheterization; Translations: [Other [...] electively in 3 weeks. Per [facility] @ [facility] 09/19/2019 Residual codes; unclassified (12 sources) Edema; Translations: [Edema, unspecified] Onset: 2 06-01-2022 Episodic Spondylosis; intervertebral disc disorders; other back problems (20 sources) Sciatica; Translations: [Sciatica] Onset: 3 06-01-2022 Episodic Superficial injury; contusion (17 sources) Hematoma of groin; Translations: [Contusion of abdominal wall, initial encounter] Onset: 3 06-01-2022 Episodic Unclassified (1 source) History of clinical finding in subject; Translations: [History of abdominal pain] Unclassified (1 source) Acute cough; Translations: [Acute cough] Onset: 3 Unclassified (12 sources) Onset: 3 Resolved: 5 06-28-2022 Unclassified (1 source) Traumatic subdural hemorrhage with loss of consciousness status unknown, initial encounter ([facility]); Translations: [Traumatic subdural hemorrhage with loss of consciousness status unknown, initial encounter ([facility])] Onset: 3 NEGATED: Highlighted row has not occurred!Residual codes; unclassified (6 sources) Disease Episodic Results Test Name Value Interpretation Reference Range Facility CBC (H/H, RBC, INDICES, WBC, PLT)on 09-30-2024 COMMENT Normal [facility] Comment on above: Result Comment: WE R ECEIVED YOUR HANDWRITTEN TEST ORDER AND PERFORMED A HEMOGRAM WITH A PLATELET WITHOUT A DIFFERENTIAL. IF THIS IS NOT WHAT YOU INTENDED TO ORDER, PLEASE CONTACT YOUR LOCAL ADULT REMEDIAL EDUCATION INSTRUCTOR IMMEDIATELY SO THAT WE CAN ADJUST OUR BILLING APPROPRIATELY. YOU MAY ALSO INQUIRE ABOUT ALTERNATIVE OR ADDITIONAL TESTING. Performed By: #### 1 759, 7065, 13759, 7573 #### [facility] [place] [address] Employment Services Director: Blanco Burger MD Erythrocyte distribution width (RBC) [Ratio] 18.9 % High 11.0-15.0 [facility] Comment on above: Performed By: #### 1 759, 7065, 69609, 7573 #### [facility] [place] [address] Employment Services Director: Blanco Burger MD Hematocrit (Bld) [Volume fraction] 38.3 % Normal 35.0-45.0 [facility] Comment on above: Performed By: #### 1 759, 7065, 89718, 7573 #### [facility] [place] [address] Employment Services Director: Blanco Burger MD Hemoglobin (Bld) [Mass/Vol] 11.1 g/dL Low 11.7-15.5 [facility] Comment on above: Performed By: #### 1 759, 70, 56291, 7573 #### [facility] [place] [address] Employment Services Director: Blanco Burger MD MCH (RBC) [Entitic mass] 24.1 pg Low 27.0-33.0 [facility] Comment on above: Performed By: #### 1 759, 7065, 16991, 7573 #### [facility] [place] [address] Employment Services Director: Blanco Burger MD MCHC (RBC) [Mass/Vol] 29.0 g/dL Low 32.0-36.[address] [facility] Comment on above: Result Comment: For adults, a slight decrease in the calculated MCHC value (in the range of 30 to 32 g/dL) is most likely not clinically significant; however, it should be interpreted with caution in correlation with other red cell parameters and the patient's clinical condition. Performed By: #### 1 759, 7065, 16997, 7573 #### [facility] of [place] [address] Employment Services Director: Blanco Burger MD MCV (RBC) [Entitic vol] 83.3 fL Normal 80.0-100.0 [facility] Comment on above: Performed By: #### 1 759, 7065, 38825, 7573 #### [facility] [place] [address] Employment Services Director: Blanco Burger MD Platelet mean volume (Bld) [Entitic vol] 11.0 fL Normal 7.5-12.5 [facility] Comment on above: Performed By: #### 1 759, 7065, 10881, 7573 #### [facility] [place] [address] Employment Services Director: Blanco Burger MD Platelets (Bld) [#/Vol] 193 10*3/uL Normal 140-400 [facility] Comment on above: Performed By: #### 1 759, 7065, 99767, 7573 #### [facility] [place] [address] Employment Services Director: Blanco Burger MD RBC (Bld) [#/Vol] 4.60 10*6/uL Normal 3.80-5.10 [facility] Comment on above: Performed By: #### 1 759, 7065, 09609, 7573 #### [facility] of [place] [address] Employment Services Director: Blanco Burger MD WBC (Bld) [#/Vol] 9.0 10*3/uL Normal 3.8-10.8 [facility] Comment on above: Performed By: #### 1 759, 7065, 98132, 7573 #### [facility] [place] [address] Employment Services Director: Blanco Burger MD CBC (INCLUDES DIFF/PLT)on Basophils (Bld) [#/Vol] 0.026 10*3/uL Normal 0-200 [facility] Comment on above: Performed By: #### 9 1025, 7600, 6399 #### [facility] of [address], [address] [place] [address] Employment Services Director: Blanco Burger MD Basophils/100 WBC (Bld) 0.3 % Normal [facility] Comment on above: Performed By: #### 9 8395, 7600, 6399 #### [facility] of [address], [address] [place] [address] Employment Services Director: Blanco Burger MD Eosinophils (Bld) [#/Vol] 0.158 10*3/uL Normal 15-500 [facility] Comment on above: Performed By: #### 9 725, 7600, 6399 #### [facility] of [address], [address] [place] [address] Employment Services Director: Blanco Burger MD Eosinophils/100 WBC (Bld) 1.8 % Normal [facility] Comment on above: Performed By: #### 9 023, 0, 6399 #### [facility] of [place] [address] Employment Services Director: Blanco Burger MD Erythrocyte distribution width (RBC) [Ratio] 19.7 % High 11.0-15.0 [facility] Comment on above: Performed By: #### 9 465, 7600, 6399 #### [facility] of [place] [address] Employment Services Director: Blanco Burger MD Hematocrit (Bld) [Volume fraction] 38.8 % Normal 35.0-45.0 [facility] Comment on above: Performed By: #### 9 3155, 7600, 6399 #### [facility] of [place] [address] Employment Services Director: Blanco Burger MD Hemoglobin (Bld) [Mass/Vol] 11.8 g/dL Normal 11.7-15.5 [facility] Comment on above: Performed By: #### 9 114, 7600, 6399 #### [facility] of [address], [address] [place] [address] Employment Services Director: Blanco Burger MD Lymphocytes (Bld) [#/Vol] 2.341 10*3/uL Normal 850-3900 [facility] Comment on above: Performed By: #### 9 6765, 7600, 6399 #### [facility] of [address], [address] [place] [address] Employment Services Director: Blanco Burger MD Lymphocytes/100 WBC (Bld) 26.6 % Normal [facility] Comment on above: Performed By: #### 9 803, 7600, 6399 #### [facility] of [address], [address] [place] [address] Employment Services Director: Blanco Burger MD MCH (RBC) [Entitic mass] 25.3 pg Low 27.0-33.0 [facility] Comment on above: Performed By: #### 9 311, 7600, 6399 #### [facility] of [address], [address] [place] [address] Employment Services Director: Blanco Burger MD MCHC (RBC) [Mass/Vol] 30.4 g/dL Low 32.0-36.[address] [facility] Comment on above: Result Comment: For adults, a slight decrease in the calculated MCHC value (in the range of 30 to 32 g/dL) is most likely not clinically significant; however, it should be interpreted with caution in correlation with other red cell parameters and the patient's clinical condition. Performed By: #### 9 410, 7600, 6399 #### [facility] of [address], [address] [place] [address] Employment Services Director: Blanco Burger MD MCV (RBC) [Entitic vol] 83.1 fL Normal 80.0-100.0 [facility] Comment on above: Performed By: #### 9 658, 7600, 6399 #### [facility] of [address], [address] [place] [address] Employment Services Director: Blanco Burger MD Monocytes (Bld) [#/Vol] 0.792 10*3/uL Normal 200-950 [facility] Comment on above: Performed By: #### 9 334, 760, 6399 #### [facility] of [address], [address] [place] [address] Employment Services Director: Blanco Burger MD Monocytes/100 WBC (Bld) 9.0 % Normal [facility] Comment on above: Performed By: #### 9 2664, 7599, 6399 #### [facility] of [address], [address] [place] [address] Employment Services Director: Blanco Burger MD Neutrophils (Bld) [#/Vol] 5.482 10*3/uL Normal 6618-6205 [facility] Comment on above: Performed By: #### 9 2664, 7599, 6399 #### [facility] of [address], [address] [place] [address] Employment Services Director: Blanco Burger MD Neutrophils/100 WBC (Bld) 62.3 % Normal [facility] Comment on above: Performed By: #### 9 936, 760, 6399 #### [facility] of [address], [address] [place] [address] Employment Services Director: Blanco Burger MD Platelet mean volume (Bld) [Entitic vol] 10.7 fL Normal 7.5-12.5 [facility] Comment on above: Performed By: #### 9 2664, 7599, 6399 #### [facility] of [address], [address] [place] [address] Employment Services Director: Blanco Burger MD Platelets (Bld) [#/Vol] 208 10*3/uL Normal 140-400 [facility] Comment on above: Performed By: #### 9 2664, 7600, 6399 #### [facility] of [address], [address] [place] [address] Employment Services Director: Blanco Burger MD RBC (Bld) [#/Vol] 4.67 10*6/uL Normal 3.80-5.10 [facility] Comment on above: Performed By: #### 9 9345, 7600, 6399 #### [facility] of [place] [address] Employment Services Director: Blanco Burger MD WBC (Bld) [#/Vol] 8.8 10*3/uL Normal 3.8-10.8 [facility] Comment on above: Performed By: #### 9 3485, 7600, 6399 #### [facility] of [place] [address] Employment Services Director: Blanco Burger MD [facility] 09-30-2024 Albumin [Mass/Vol] 3.8 g/dL Normal 3.6-5.1 [facility] Comment on above: Performed By: #### 1 759, 7065, 86643, 7573 #### [facility] of [place] [address] Employment Services Director: Blanco Burger MD Albumin/Globulin [Mass ratio] 1.5 {ratio} Normal 1.0-2.5 [facility] Comment on above: Performed By: #### 1 989, 7065, 32903, 7573 #### [facility] of [place] [address] Employment Services Director: Blanco Burger MD ALP [Catalytic activity/Vol] 75 U/L Normal 37-153 [facility] Comment on above: Performed By: #### 1 759, 7065, 91921, 7573 #### [facility] of [place] [address] Employment Services Director: Blanco Burger MD ALT [Catalytic activity/Vol] 13 U/L Normal 6-29 [facility] Comment on above: Performed By: #### 1 759, 7065, 47631, 7573 #### [facility] [place] [address] Employment Services Director: Blanco Burger MD AST [Catalytic activity/Vol] 16 U/L Normal 10-35 [facility] Comment on above: Performed By: #### 1 759, 7065, 92984, 7573 #### [facility] [place] [address] Employment Services Director: Blanco Burger MD Bilirubin [Mass/Vol] 0.6 mg/dL Normal 0.2-1.2 [facility] Comment on above: Performed By: #### 1 759, 7065, 21980, 7573 #### [facility] of [place] [address] Employment Services Director: Blanco Burger MD Calcium [Mass/Vol] 9.4 mg/dL Normal 8.6-10.4 [facility] Comment on above: Performed By: #### 1 759, 7065, 41363, 7573 #### [facility] [place] [address] Employment Services Director: Blanco Burger MD Chloride [Moles/Vol] 107 mmol/L Normal 98-110 [facility] Comment on above: Performed By: #### 1 759, 7065, 04685, 7573 #### [facility] [place] [address] Employment Services Director: Blanco Burger MD CO2 [Moles/Vol] 25 mmol/L Normal 20-32 [facility] Comment on above: Performed By: #### 1 759, 7065, 98609, 7573 #### [facility] of [place] [address] Employment Services Director: Blanco Burger MD Creatinine [Mass/Vol] 1.79 mg/dL High 0.60-0.[address] [facility] Comment on above: Performed By: #### 1 759, 7065, 15063, 7573 #### [facility] of [place] [address] Employment Services Director: Blanco Burger MD GFR/1.73 sq M.predicted among non-blacks MDRD (S/P/Bld) [Vol rate/Area] 27 mL/min/{1.73_m2} Low > OR = 60 [facility] Comment on above: Performed By: #### 1 759, 7065, 52732, 7573 #### [facility] [place] [address] Employment Services Director: Blanco Burger MD Globulin (S) [Mass/Vol] 2.6 g/dL Normal 1.9-3.7 [facility] Comment on above: Performed By: #### 1 759, 7065, 30203, 7573 #### [facility] [place] [address] Employment Services Director: Blanco Burger MD Glucose [Mass/Vol] 158 mg/dL High 65-99 [facility] Comment on above: Result Comment: Fasting reference interval For someone without known diabetes, a glucose value >125 mg/dL indicates that they may have diabetes and this should be confirmed with a follow-up test. Performed By: #### 1 759, 7065, 16818, 7573 #### [facility] [place] [address] Employment Services Director: Blanco Burger MD Potassium [Moles/Vol] 4.3 mmol/L Normal 3.5-5.[address] [facility] Comment on above: Performed By: #### 1 759, 7065, 45363, 7573 #### [facility] [place] [address] Employment Services Director: Blanco Burger MD Protein [Mass/Vol] 6.4 g/dL Normal 6.1-8.1 [facility] Comment on above: Performed By: #### 1 759, 7065, 32920, 7573 #### [facility] [place] [address] Employment Services Director: Blanco Burger MD Sodium [Moles/Vol] 142 mmol/L Normal 135-146 [facility] Comment on above: Performed By: #### 1 759, 7065, 17236, 7573 #### [facility] of [address], [address] [place] [address] Employment Services Director: Blanco Burger MD Urea nitrogen [Mass/Vol] 37 mg/dL High 7- [facility] Comment on above: Performed By: #### 1 759, 7065, 06988, 7573 #### [facility] of [address], [address] [place] [address] Employment Services Director: Blanco Burger MD Urea nitrogen/Creatinine [Mass ratio] 21 mg/mg Normal 6- [facility] Comment on above: Performed By: #### 1 759, 7065, 13341, 7573 #### [facility] of [place] [address] Employment Services Director: Blanco Burger MD FERRITINon 09-30-2024 Ferritin [Mass/Vol] 12 ng/mL Low 16- [facility] Comment on above: Performed By: #### 9 7125, 7600, 6399 #### [facility] [place] [address] Employment Services Director: Blanco Burger MD FOLATE, SERUMon 09-30-2024 Folate [Mass/Vol] 10.6 ng/mL Normal [facility] Comment on above: Result Comment: Refe rence Range Low: <3.4 Borderline: 3.4-5.4 Normal: >5.4 Performed By: #### 9 5425, 7600, 6399 #### [facility] of [place] [address] Employment Services Director: Blanco Burger MD IRON AND TOTAL IRON BINDING CAPACITYon 09-30-2024 % SATURATION 12 % (calc) Low 16-45 [facility] Comment on above: Order Comment: FASTI NG:YES FASTING: YES Performed By: #### 4 57, 0573, 466, 927, 96123, 6399, 793 #### [facility] of [address], [address] [place] [address] Employment Services Director: Blanco Burger MD IRON BINDING CAPACITY 424 mcg/dL (calc) Normal 250-450 [facility] Comment on above: Order Comment: FASTI NG:YES FASTING: YES Performed By: #### 4 57, 7573, 466, 927, 42934, 6399, 793 #### [facility] [address], [address] [place] [address] Employment Services Director: Blanco Burger MD IRON, TOTAL 51 mcg/dL Normal 45-160 [facility] Comment on above: Order Comment: FASTI NG:YES FASTING: YES Performed By: #### 4 57, 7573, 466, 927, 51297, 6399, 793 #### [facility] [place] [address] Employment Services Director: Blanco Burger MD % SATURATION 12 % (calc) Low 16-45 [facility] Comment on above: Order Comment: FASTI NG:YES FASTING: YES Performed By: #### 1 759, 7065, 17802, 7573 #### [facility] [place] [address] Employment Services Director: Blanco Burger MD IRON BINDING CAPACITY 431 mcg/dL (calc) Normal 250-450 [facility] Comment on above: Order Comment: FASTI NG:YES FASTING: YES Performed By: #### 1 759, 7065, 47668, 7573 #### [facility] [place] [address] Employment Services Director: Blanco Burger MD IRON, TOTAL 50 mcg/dL Normal 45-160 [facility] Comment on above: Order Comment: FASTI NG:YES FASTING: YES Performed By: #### 1 759, 7065, 86403, 7573 #### [facility] [place] [address] Employment Services Director: Blanco Burger MD RETICULOCYTE COUNTon 025 RETICULOCYTE COUNT, AUTOMATED 1.4 % Normal [facility] Comment on above: Performed By: #### 4 57, 7573, 466, 927, 61268, 6399, 793 #### [facility] [place] [address] Employment Services Director: Blanco Burger MD RETICULOCYTE, ABSOLUTE 68779 cells/uL Normal 09857-120 00 [facility] Comment on above: Performed By: #### 4 57, 7573, 466, 927, 49293, 6399, 793 #### [facility] [place] [address] Employment Services Director: Blanco Burger MD TSH W/REFLEX TO FT4on 2024 TSH W/REFLEX TO FT4 3.37 mIU/L Normal 0.40-4.50 [facility] Comment on above: Performed By: #### 9 6365, 7600, 6399 #### [facility] [place] [address] Employment Services Director: Blanco Burger MD VITAMIN B12on 09-30-2024 Cobalamin (Vitamin B12) [Mass/Vol] 337 pg/mL Normal 200-1100 [facility] Comment on above: Result Comment: Please Note: Although the reference range for vitamin B12 is 200-1100 pg/mL, it has been reported that between 5 and 10% of patients with values between 200 and 400 pg/mL may experience neuropsychiatric and hematologic abnormalities due to occult B12 deficiency; less than 1% of patients with values above 400 pg/mL will have symptoms. Performed By: #### 9 0665, 7600, 6399 #### [facility] [place] [address] Employment Services Director: Blanco Burger MD VITAMIN B12/FOLATE, SERUM [place] NELo 09-30-2024 FOLATE, SERUM Normal [facility] Comment on above: Performed By: #### 1 759, 7065, 86954, 7573 #### [facility] [place] [address] Employment Services Director: Blanco Burger MD VITAMIN B12 Normal [facility] Comment on above: Performed By: #### 1 759, 7065, 25249, 7573 #### [facility] [address] [place] [address] Employment Services Director: Blanco Burger MD Proteinon 09-29-2024 Protein [Mass/Vol] 6.4 g/dL Normal 6.4-8.2 [facility] Comment on above: Performed By: #### 2 885-2 #### MARGO Brown ([id number]) [facility] ([facility]) [address] [place] [address] Protein electrophoresis pane yas 09-29-2024 Albumin [Mass/Vol] 3.5 g/dL Normal 3.4-5.0 [facility] Comment on above: Performed By: #### 2 4351-9 #### MARGO Brown ([id number]) [facility] ([facility]) [address] [place] [address] 52653 ALPHA 1 GLOBULIN 0.2 g/dL Normal 0.2-0.6 [facility] Comment on above: Performed By: #### 2 4351-9 #### MARGO Brown ([id number]) [facility] ([facility]) [address] [place] [address]34[address] ALPHA 2 GLOBULIN 0.9 g/dL Normal 0.4-1.1 [facility] Comment on above: Performed By: #### 2 4351-9 #### MARGO Brown ([id number]) [facility] ([facility]) [address] [place] [address] 32870 BETA GLOBULIN 0.9 g/dL Normal 0.5-1.2 [facility] Comment on above: Performed By: #### 2 4351-9 #### MARGO Brown ([id number]) [facility] ([facility]) [address] [place] [address] 18488 GAMMA GLOBULIN 0.9 g/dL Normal 0.5-1.4 [facility] Comment on above: Performed By: #### 2 4351-9 #### MARGO Brown ([id number]) [facility] ([facility]) [address] [place] [address] 18[address] PATH REVIEW-SERUM PROTEIN ELECTROPHORESIS Reviewed and approved by ANN MCMAHON on 10/06/24 at 9:30 AM. [facility] Comment on above: Performed By: #### 2 4351-9 #### MARGO Brown ([id number]) [facility] ([facility]) [address] [place] [address] PROTEIN ELECTROPHORESIS COMMENT Normal. [facility] Comment on above: Performed By: #### 2 4351-9 #### MARGO Brown ([id number]) [facility] ([facility]) [address] [place], [place] [id number] CONFIRM BLOOD TYPEon 025 ABO group Nom (Bld) O [facility] Rh Nom (Bld) Positive [facility] ABO O [facility] Comment on above: Order Comment: Speci men Type: BLOOD SPECIMEN Ordering Facility: [facility] Address: [address] [place] [address] Performed By: #### C ONABO #### [facility] CLIA [id number] [address] Rh Nom (Bld) Positive [facility] Comment on above: Order Comment: Speci men Type: BLOOD SPECIMEN Ordering Facility: [facility] Address: [address] [place] [address] Performed By: #### C ONABO #### [facility] CLIA [id number] [address] BLOOD BANK COMMENTon 025 BLOOD BANK COMMENT See Comment Normal [facility] Comment on above: Order Comment: Speci men Type: BLOOD SPECIMEN Ordering Facility: [facility] Address: [address] [place] [address] Result Comment: 2nd sample NEEDED for ABO confirmation (CONABO) Performed By: #### L [id number], TSCR #### [facility] CLIA [id number] [address] TYPE + SCREENon 08-22-2024 ABO O [facility] Comment on above: Order Comment: Speci men Type: BLOOD SPECIMEN Ordering Facility: [facility] Address: [address] [place] [address] Performed By: #### L [id number], TSCR #### [facility] CLIA [id number] [address] Rh Nom (Bld) Positive [facility] Comment on above: Order Comment: Speci men Type: BLOOD SPECIMEN Ordering Facility: [facility] Address: [address] [place], [place] [id number] Performed By: #### L [id number], TSCR #### [facility] CLIA [id number] [address] TYPE AND SCREEN EXPIRATION 08/25/2024 23:59 [facility] Comment on above: Order Comment: Speci men Type: BLOOD SPECIMEN Ordering Facility: [facility] Address: [address] [place] [address] Performed By: #### L [id number], TSCR #### [facility] CLIA [id number] [address] CNOVon 08-19-2024 CNOV Office Visit ([id number]) INGRID DONALD ([id number]) 1935 F Date Time Provider Department 08/19/24 8:15 AM MARK VAZQUEZ [id number] During your visit today, we recorded the following information about you: Respiration Weight Height 18/minute 83 kg 1.499 m Mark Vazquez MD 08/19/2024 8:58 AM Signed Chief Complaint: Bilateral knee pain Consuting Physician: Self History: Ingrid is a 88 year old female who presents with a longstanding history of bilateral knee pain. She denies any traumatic history but more of an insidious onset of pain. The pain is located along the medial region of the knee. The pain is [...] current treatment for chronic pain conditions CARDIOVASCULAR: atrial fibrillation MSK: Negative for joint pain, swelling, back pain, muscle pain. SKIN: Negative for lesions, rash, itching, metal sensitivity NEURO: Negative for seizure, trauma, numbness/tingling of extremities. ENDOCRINE: Diabetes Type 2 HEMATOLOGY: Negative for excessive bleeding, clots, bleeding disorders. Physical Examination: Perdita is alert and oriented and in no acute distress. She exhibits an antalgic gait. She has evidence of (varus/ valgus) malalignment of her bilateral knee(s). Skin is intact bilaterally. The patient lacks 5 degrees of full extension of the bilateral knee(s) and lacks 5 degrees of flexion as well. She has [...] cap refill are seen. Gross sensation intact. Assessment: Primary osteoarthritis of both knees (primary encounter diagnosis) Type 2 diabetes mellitus without complication, without long-term current use of insulin ([facility]) Atrial fibrillation, unspecified type (hcc) Plan: The patient understands the diagnosis, treatment options and indications for both operative and non-operative, their associated risks, complications, benefits, outcomes, rehabilitation and failures. It was decided to proceed with a nonoperative treatment option consisting of NSAID?s and a physical therapy program emphasizing quadricep strengthening, stretching and ROM. Injection performed as detailed below: Large Joint Arthro/Inj: bilateral knee joints 08/19/2024 8:45 AM The procedure site was prepped in the usual sterile fashion. Site: bilateral knee joints Medications (Right): 40 mg methylPREDNISolone acetate 40 mg/mL Medications (Left): 40 mg methylPREDNISolone acetate 40 mg/mL Anesthetics (Right): 5 mL lidocaine [...] prn basis. MD Lakesha Barajas Dianna, LPN 08/19/2024 8:58 AM Signed Injection prepared per order for Dr. Vazquez' and handed directly to him. Injection site: asaf knees Donya Faria LPN Referring Provider: SELF [200] Allergies As of Date: 08/19/2024 Noted Allergy Reaction MORPHINE 11/13/2023 9 - Itching MOTRIN (IBUPROFEN) 12/07/2021 9 - Itching Date Reviewed: 08/19/2024 Reviewed by: Mi Patricio LPN - Fully Assessed Reason for Visit: Established Patient [175] Knee Pain [132] Swelling [205] Established Patient [175] Knee Pain [132] Swelling (more content not included)... Normal [facility] Large Joint Arthro/Inj: bila teral knee jointson 08-19-2024 Mark Vazquez MD 08/19/2024 8:58 AM Large Joint Arthro/Inj: bilateral knee joints 08/19/2024 8:45 AM The procedure site was prepped in the usual sterile fashion. Site: bilateral knee joints Medications (Right): 40 mg methylPREDNISolone acetate 40 mg/mL Medications (Left): 40 mg methylPREDNISolone acetate 40 mg/mL Anesthetics (Right): 5 mL lidocaine (PF) 10 mg/mL (1 %) Anesthetics (Left): 5 mL lidocaine (PF) 10 mg/mL (1 %) Outcome: Tolerated well, no immediate complications Post-injection instructions were reviewed with the patient and the patient voiced understanding of these instructions. [facility] Absolute lymphocyte countOrd ered By: Kal Fan on 08-18-2024 Lymphocytes Auto (Unsp spec) [#/Vol] 1.71 10*3/uL 0.83-4.51 [facility] Absolute neutrophil countOrd ered By: Kal Fan on 08-18-2024 Neutrophils (Bld) [#/Vol] 5.2 10*3/uL 2.0-7.7 [facility] Automated lymphocyte count a s percentage of total leukocytesOrdered By: Kal Fan on 08-18-2024 Lymphocytes/100 WBC Auto (Unsp spec) 20.8 % 19-41 [facility] Basophil percentageOrdered B y: Kal Fan on 08-18-2024 Basophils/100 WBC (Bld) 0.4 % 0-1 [facility] CBC W/Diff, Automatedon 08-05 Absolute Lymph 1.71 X10 3/uL Normal 0.83-4.51 [facility] Comment on above: Performed By: #### L 100.0100 ####[facility] [address] [facility] [place], [address] Absolute Neut 5.2 X10 3/uL Normal 2.0-7.7 [facility] Comment on above: Performed By: #### L 100.0100 ####[facility] [address] [place], [address] Basophils/100 WBC (Bld) 0.4 % Normal 0-1 [facility] Comment on above: Performed By: #### L 100.0100 ####[facility] [address] [place], [address] Eosinophils/100 WBC (Bld) 3.8 % Normal 0-5 [facility] Comment on above: Performed By: #### L 100.0100 ####[facility] [address] [place], [address] Erythrocyte distribution width (RBC) [Ratio] 17.3 % High 11.6-14.6 [facility] Comment on above: Performed By: #### L 100.0100 ####[facility] [address] [place], [address] Hematocrit (Bld) [Volume fraction] 26.0 % Low 37-47 [facility] Comment on above: Performed By: #### L 100.0100 ####[facility] [address] [place], [address] Hemoglobin (Bld) [Mass/Vol] 7.5 g/dL Low 12.0-15.0 [facility] Comment on above: Performed By: #### L 100.0100 ####[facility] [address] [place], [address] IG% 0.700 Normal 0.0-0.9 [facility] Comment on above: Result Comment: IG% - Immature Granulocytes (promyelocytes, myelocytes and metamyelocytes) > 1% indicates that a LEFT SHIFT is Present. Performed By: #### L 100.0100 ####[facility] [address] [place], [address] Lymphocytes/100 WBC (Bld) 20.8 % Normal 19-41 [facility] Comment on above: Performed By: #### L 100.0100 ####[facility] [address] [place], [address] MCH (RBC) [Entitic mass] 23.0 pg Low 27.0-32.0 [facility] Comment on above: Performed By: #### L 100.0100 ####[facility] [address] [place], [address] MCHC (RBC) [Mass/Vol] 28.8 g/dL Low 32-36 [facility] Comment on above: Performed By: #### L 100.0100 ####[facility] [address] [place], [address] MCV (RBC) [Entitic vol] 79.8 fL Low 81-99 [facility] Comment on above: Performed By: #### L 100.0100 ####[facility] [address] [place], [address] Monocytes/100 WBC (Bld) 11.4 % High 0-10 [facility] Comment on above: Performed By: #### L 100.0100 ####[facility] [address] [place], [address] Neutrophils/100 WBC (Bld) 62.9 % Normal 47-70 [facility] Comment on above: Performed By: #### L 100.0100 ####[facility] [address] [place], [address] Nucleated RBC (Bld) [#/Vol] 0 10*3/uL Normal 0-5 [facility] Comment on above: Performed By: #### L 100.0100 ####[facility] [address] [place], [address] Platelet mean volume (Bld) [Entitic vol] 10.9 fL Normal 6.2-12.0 [facility] Comment on above: Performed By: #### L 100.0100 ####[facility] [address] [place], [address] Platelets (Bld) [#/Vol] 233 10*3/uL Normal 150-450 [facility] Comment on above: Performed By: #### L 100.0100 ####[facility] [address] [place], [address] RBC (Bld) [#/Vol] 3.26 10*6/uL Low 4.2-5.4 [facility] Comment on above: Performed By: #### L 100.0100 ####[facility] [address] [place], [address] RDW SD 49.8 fl High 35.1-43.9 [facility] Comment on above: Performed By: #### L 100.0100 ####[facility] [address] [place], [address] WBC (Bld) [#/Vol] 8.2 10*3/uL Normal 4.4-11.0 [facility] Comment on above: Performed By: #### L 100.0100 ####[facility] [address] [facility] [place], [address] Emergency Department Summary on 08-18-2024 Emergency Department Summary [facility] Medical Records Department [address] [facility] [place] [address] Emergency Department Summary 08/18/24 MR#: [id number] Acct: [id number] Name: INGRID DONALD Rep #: [id number] : 1935 88 From: Kal Fan MD PCP: Dr. Eitan Price MD Status:REG ER Location: ED HPI History of Present Illness Chief Complaint: Abn Labs Narrative Narrative: 88-year-old female past medical history of aortic stenosis, coronary artery disease, atrial fibrillation presents at the direction of her primary care provider, Dr. Eitan Price because of anemia. It was reported by her family that she had blood work on Sunday that was [...] symptoms. Today, she states she feels well. [facility] Medical History Subdural hematoma, acute Coronary artery disease Aortic stenosis Anemia Paroxysmal atrial fibrillation New onset atrial fibrillation Dyspnea on exertion Atherosclerotic heart disease [place] coronary artery w/angina pectoris Type 2 diabetes mellitus without complications Hematoma of groin Obesity GERD (gastroesophageal reflux disease) Hiatal hernia History of colon cancer Asthma Depression Atherosclerotic heart disease of [place] coronary artery without angina pectoris Hypertension Nonsustained ventricular tachycardia Non-STEMI (non-ST elevated myocardial infarction) Hyperlipemia Home Medications ???Medication ???Instructions ???Recorded ???Last Taken ???Type cyanocobalamin (vitamin B-12) 1,000 mcg PO DAILY 06/22/16 History 1,000 mcg tablet montelukast 10 mg tablet 10 mg PO QHS 06/22/16 08/17/24 His tory omeprazole 20 mg capsule,delayed 20 mg PO DAILY 12/08/20 08/18/24 H istory release losartan 100 mg tablet 100 mg PO DAILY 12/14/21 08/18/24 History apixaban 2.5 mg tablet (Eliquis) 2.5 mg PO BID 07/26/23 08/18/24 Hi story carvedilol 25 mg tablet 25 mg PO QDAY 07/26/23 08/18/24 Hi story aspirin 81 mg tablet,delayed 81 mg PO QDAY 11/06/23 08/18/24 Hi story release (Adult Aspirin Regimen) atorvastatin 40 mg tablet 40 mg PO QDAY #90 tabs 11/06/23 Rx fluoxetine 20 mg capsule 20 mg PO QDAY 11/06/23 08/18/24 Hi story amlodipine 5 mg tablet 5 mg PO DAILY #90 tabs 01/28/24 Rx Allergy/AdvReac Type Severity Reaction Status Date [...] of chronic disease. At lengthy discussion with the patient and her family/friend. She just h (more content not included)... Normal [facility] Eosinophil percentageOrdered By: Kal Fan on 08-18-2024 Eosinophils/100 WBC (Bld) 3.8 % 0-5 [facility] Erythrocyte distribution wid th ratioOrdered By: Kal Fan on 08-18-2024 Erythrocyte distribution width (RBC) [Ratio] 17.3 % High 11.6-14.6 [facility] Erythrocyte distribution wid th standard deviationOrdered By: Kal Fan on 08-18-2024 Erythrocyte distribution width (RBC) [Ratio] 49.8 fl High 35.1-43.9 [facility] Hematocrit Auto (Bld) [Volum e fraction]Ordered By: Kal Fan on 08-18-2024 Hematocrit (Bld) [Volume fraction] 26.0 % Low 37-47 [facility] Hemoglobin measurementOrdere d By: Kal Fan on 08-18-2024 Hemoglobin (Bld) [Mass/Vol] 7.5 g/dL Low 12.0-15.0 [facility] Immature granulocytes/100 WB C Auto (Bld)Ordered By: Kal Fan on 08-18-2024 Immature granulocytes/100 WBC (Bld) 0.700 % 0.0-0.9 [facility] Comment on above: IG% - Immature Granu locytes (promyelocytes, myelocytes and metamyelocytes) > 1% indicates that a LEFT SHIFT is Present. L499.0043on 08-18-2024 Trop T High Sen 16 ng/L High <=14 [facility] Comment on above: Performed By: #### L 499.0043 ####[facility] [address] [place], [address] MCV (mean corpuscular volume ) determinationOrdered By: Kal Fan on 08-18-2024 MCV (RBC) [Entitic vol] 79.8 fL Low 81-99 [facility] Mean corpuscular hemoglobin (MCH) determinationOrdered By: Kal Fan on 08-18-2024 MCH (RBC) [Entitic mass] 23.0 pg Low 27.0-32.0 [facility] Mean corpuscular hemoglobin concentration (MCHC) determinationOrdered By: Kal Fan on 08-18-2024 MCHC (RBC) [Mass/Vol] 28.8 g/dL Low 32-36 [facility] Mean platelet volume determi nationOrdered By: Kal Fan on 08-18-2024 Platelet mean volume (Bld) [Entitic vol] 10.9 fL 6.2-12.0 [facility] Monocyte percentageOrdered B y: Kal Fan on 08-18-2024 Monocytes/100 WBC (Bld) 11.4 % High 0-10 [facility] Neutrophil percentageOrdered By: Kal Fan on 08-18-2024 Neutrophils/100 WBC (Bld) 62.9 % 47-70 [facility] Nucleated red blood cell per centageOrdered By: Kal Fan on 08-18-2024 Nucleated RBC/100 WBC (Bld) [Ratio] 0 % 0-5 [facility] Platelet countOrdered By: Jorge Fan on 08-18-2024 Platelets (Bld) [#/Vol] 233 10*3/uL 150-450 [facility] RBC Auto (Bld) [#/Vol]Ordere d By: Kal Fan on 08-18-2024 RBC (Bld) [#/Vol] 3.26 10*6/uL Low 4.2-5.4 [facility] White blood cell (WBC) count Ordered By: Kal Fan on 08-18-2024 WBC (Bld) [#/Vol] 8.2 10*3/uL 4.4-11.0 [facility] 12 Lead EKGon 08-17-2024 12 Lead EKG [facility] Cardiovascular Services [address] [place] [address] 12 Lead EKG 08/17/241947 MR#: [id number] Acct: [id number] Name: INGRID DONALD Rep #: [id number] : 1935 88 From: Sandeep Paris MD Attending Dr: Status: DEP ER Ordering Dr: Shakeel Rehman DO Date: 08/17/24 Location: ED Sex: F C Admitted: Test Reason : CP Blood Pressure : */* mmHG Vent. Rate : 82 BPM Atrial Rate : * BPM P-R Int : * ms QRS Dur : 86 ms QT Int : 394 ms P-R-T Axes : * 6 49 degrees QTcB Int : 460 ms Atrial fibrillation Low voltage QRS Septal infarct , age undetermined Abnormal ECG Confirmed by Sandeep Paris ([id number]), editor managing director JL ALEJO ([id number]) on 08/18/2024 1:09:30 PM Referred By: RU Confirmed By: Sandeep Paris 08/18/24 1309 Date Sandeep Paris MD CC: Dr. Eitan Price MD; Dr. Shakeel Rehman DO Signed Normal [facility] Absolute lymphocyte countOrd ered By: Shakeel Rehman on 08-17-2024 Lymphocytes Auto (Unsp spec) [#/Vol] 1.69 10*3/uL 0.83-4.51 [facility] Absolute neutrophil countOrd ered By: Shakeel Rehman on 08-17-2024 Neutrophils (Bld) [#/Vol] 5.6 10*3/uL 2.0-7.7 [facility] Anion gap in Serum or Plasma Ordered By: Shakeel Rehman on 08-17-2024 Anion gap [Moles/Vol] 14 mmol/L 5-15 [facility] Automated blood erythrocyte countOrdered By: Shakeel Rehman on 08-17-2024 RBC (Bld) [#/Vol] 3.16 10*6/uL Low 4.2-5.4 [facility] Comment on above: Performed By: #### L 501.5200, L501.4021, L100.0100, L500.2500 #### [facility] [address] [place], [place], [address] Automated blood hematocrit ( percentage)Ordered By: Shakeel Rehman on 08-17-2024 Hematocrit (Bld) [Volume fraction] 25.3 % Low 37-47 [facility] Comment on above: Performed By: #### L 501.5200, L501.4021, L100.0100, L500.2500 #### [facility] [address] [place], [address] Automated lymphocyte count a s percentage of total leukocytesOrdered By: Shakeel Rehman on 08-17-2024 Lymphocytes/100 WBC Auto (Unsp spec) 20.3 % 19- [facility] BUN/creatinine ratioOrdered By: Shakeel Rehman on 08-17-2024 Urea nitrogen/Creatinine [Mass ratio] 17.3 mg/mg 10- [facility] Basic Metabolic Profile (BMP )on 08-17-2024 BUN/CRE 17.3 RATIO Normal - [facility] Comment on above: Performed By: #### L 501.5200, L501.4021, L100.0100, L500.2500 #### [facility] [address] [place], [address] ECRCL 21.64 ml/min Low 50-250 [facility] Comment on above: Performed By: #### L 501.5200, L501.4021, L100.0100, L500.2500 #### [facility] [address] [place], [address] GAP 14 Normal 5-15 [facility] Comment on above: Performed By: #### L 501.5200, L501.4021, L100.0100, L500.2500 #### [facility] [address] [place], [address] Potassium [Moles/Vol] 4.7 mmol/L Normal 3.3-5.1 [facility] Comment on above: Result Comment: Hemo lysis present, Results??could be affected. ?? Performed By: #### L 501.5200, L501.4021, L100.0100, L500.2500 #### [facility] [address] [place], [address] Basophil percentageOrdered B y: Shakeel Sherie on 08-17-2024 Basophils/100 WBC (Bld) 0.1 % Normal 0-1 [facility] Comment on above: Performed By: #### L 501.5200, L501.4021, L100.0100, L500.2500 #### [facility] [address] [place], [address] CBC W/Diff, Automatedon 08-05 Absolute Lymph 1.69 X10 3/uL Normal 0.83-4.51 [facility] Comment on above: Performed By: #### L 501.5200, L501.4021, L100.0100, L500.2500 #### [facility] [address] [place], [address] Absolute Neut 5.6 X10 3/uL Normal 2.0-7.7 [facility] Comment on above: Performed By: #### L 501.5200, L501.4021, L100.0100, L500.2500 #### [facility] [address] [place], [address] IG% 0.600 Normal 0.0-0.9 [facility] Comment on above: Result Comment: IG% - Immature Granulocytes (promyelocytes, myelocytes and metamyelocytes) > 1% indicates that a LEFT SHIFT is Present. Performed By: #### L 501.5200, L501.4021, L100.0100, L500.2500 #### [facility] [address] [place], [address] Lymphocytes/100 WBC (Bld) 20.3 % Normal 19-41 [facility] Comment on above: Performed By: #### L 501.5200, L501.4021, L100.0100, L500.2500 #### [facility] [address] [place], [address] Nucleated RBC (Bld) [#/Vol] 0 10*3/uL Normal 0-5 [facility] Comment on above: Performed By: #### L 501.5200, L501.4021, L100.0100, L500.2500 #### [facility] [address] [place], [address] RDW SD 48.9 fl High 35.1-43.9 [facility] Comment on above: Performed By: #### L 501.5200, L501.4021, L100.0100, L500.2500 #### [facility] [address] [place], [address] Carbon dioxide, total [Moles /volume] in Central venous bloodOrdered By: Shakeel Rehman on 08-17-2024 CO2 [Moles/Vol] 16.1 mmol/L Low 21.0-32.0 [facility] Comment on above: Performed By: #### L 501.5200, L501.4021, L100.0100, L500.2500 #### [facility] [address] [place], [address] Chest 1 View (Portable)on Chest 1 View (Portable) [facility] Imaging Services [address] [place] [address] Chest 1 View (Portable) MR#: [id number] Acct: [id number] Name: INGRID DONALD Rep #: [id number] : 1935 F 88 From: Robin Obregon MD PCP: Dr. Eitan Price MD Status: PRE ER Study: Chest 1 View (Portable) Date of Exam: 08/17/24 Exam# [id number] Ordering Dr: Shakeel Rehman DO PROCEDURE: CHEST 1 VIEW (PORTABLE) [...] infection. 2. Probable hiatal hernia. Reading Location: [id number] CC: Dr. Eitan Price MD; Dr. Shakeel Rehman DO Shop Director: Signed Normal [facility] Chloride assayOrdered By: Patric Rehman on 08-17-2024 Chloride [Moles/Vol] 109 mmol/L High 98-108 [facility] Comment on above: Performed By: #### L 501.5200, L501.4021, L100.0100, L500.2500 #### [facility] [address] [place], [address] Emergency Department Summary on 08-17-2024 Emergency Department Summary [facility] Medical Records Department [address] [place] [address] Emergency Department Summary 08/17/24 MR#: [id number] Acct: [id number] Name: INGRID DONALD Rep #: [id number] : 1935 88 From: Shakeel Rehman DO PCP: Dr. Eitan Price MD Status:DEP ER Location: ED HPI History of Present Illness Chief Complaint: Chest Pain [facility] Medical History Anemia Aortic stenosis Asthma Atherosclerotic heart disease [place] coronary artery w/angina pectoris Atherosclerotic heart disease of [place] coronary artery without angina pectoris Coronary artery disease Depression Dyspnea on exertion GERD (gastroesophageal reflux disease) Hematoma of groin Hiatal hernia History of colon cancer Hyperlipemia Hypertension New onset atrial fibrillation Non-STEMI (non-ST elevated myocardial infarction) Nonsustained ventricular tachycardia Obesity Paroxysmal atrial fibrillation Subdural hematoma, acute Type 2 diabetes mellitus without complications Home Medications ???Medication ???Instructions ???Recorded ???Last Taken ???Type cyanocobalamin (vitamin B-12) 1,000 mcg PO DAILY 06/22/16 History 1,000 mcg tablet montelukast 10 mg tablet 10 mg PO QHS 06/22/16 06/21/16 His tory omeprazole 20 mg capsule,delayed 20 mg PO DAILY 12/08/20 Unknown Hi story release losartan 100 mg tablet 100 mg PO DAILY 12/14/21 Unknown H istory ferrous sulfate 325 mg (65 mg 325 mg PO DAILY 12/06/22 Unknown H istory iron) tablet apixaban 2.5 mg tablet (Eliquis) 2.5 mg PO BID 07/26/23 Unknown His tory carvedilol 25 mg tablet 25 mg PO QDAY 07/26/23 Unknown His tory aspirin 81 mg tablet,delayed 81 mg PO QDAY 11/06/23 Unknown His tory release (Adult Aspirin Regimen) atorvastatin 40 mg tablet 40 mg PO QDAY #90 tabs 11/06/23 Un known Rx fluoxetine 20 mg capsule 20 mg PO QDAY 11/06/23 Unknown His tory amlodipine 5 mg tablet 5 mg PO DAILY #90 tabs 01/28/24 Un known Rx Allergy/AdvReac Type Severity Reaction Status Date / Time morphine Allergy Mild Hives Verified 08/17/24 19:48 Family History Mother CAD (coronary artery disease) Father CAD (coronary artery disease) Brother CAD (coronary artery disease) Sister CAD (coronary artery disease) Surgical History History of History of cholecystectomy ( 2011) History of colectomy ( 04/2001) History of coronary artery stent placement (06/23/16) History of right and left heart catheterization (09/19/19) Social History Smoking Status: Never smoker alcohol intake: never substance use type: does not use caffeine: Yes Type: coffee Number of servings: 4 EXAM Physical Exam Const Vital Signs: 08/17/24 19:46 08/17/24 20:06 08/17/24 20:43 Temperature 97.4 F L Temperature Source Temporal Pulse Rate 105 H 80 Respiratory Rate 22 H Blood Pressure 145/29 H 178/79 H Blood Pressure Mean 67 112 Pulse Ox 100 100 96 Oxygen Delivery Method Room Air Room Air 08/17/24 21:00 08/17/24 22:00 08/17/24 23:00 Temperature Temperature Source Pulse Rate 83 88 82 Respiratory Rate 16 Blood Pressure 178/79 H 143/78 H 158/71 H Blood Pressure Mean 112 99 100 Pulse Ox 96 99 Oxygen Delivery Method Room Air 08/18/24 00:00 Temperature Temperature Source Pulse Rate 71 Respiratory Rate 20 H Blood Pressure 153/80 H Blood Pressure Mean 104 Pulse Ox 100 Oxygen Delivery Method Physical Exam Const Vital Signs: 08/17/24 19:46 08/17/24 20:06 08/17/24 20:43 Temperature 97.4 F L Temperature Source Temporal Pulse Rate 105 H 80 Respiratory Rate 22 H Blood Pressure 145/29 H 178/79 H Blood Pressure Mean 67 112 Pulse Ox 100 100 96 Oxygen Delivery Method Room Air Room Air 08/17/24 21:00 08/17/24 22:00 08/17/24 23:00 Temperature Temperature Source Pulse Rate 83 88 82 Respiratory Rate 16 Blood Pressure 178/79 H 143/78 H 158/71 H Blood Pressure Mean 112 99 100 Pulse Ox 96 99 Oxygen Delivery Method Room Air 08/18/24 00:00 Temperature Temperature Source Pulse Rate 71 Respiratory Rate 20 H Blood Pressure 153/80 H Blood Pressure Mean 104 Pulse Ox 100 Oxygen Delivery Method MDM MDM MDM Narrative Medical decision making narrative: HISTORY OF PRESENT ILLNESS: Chief complaint: Chest pain 88-year-old female history of CHF, aortic stenosis, CAD, A-fib (on Eliquis), hyperlipidemia presents with chest tightness. Notes chest tightness started 6:30 PM (more content not included)... Normal [facility] Eosinophil percentageOrdered By: Shakeel Rehman on 08-17-2024 Eosinophils/100 WBC (Bld) 3.7 % Normal 0-5 [facility] Comment on above: Performed By: #### L 501.5200, L501.4021, L100.0100, L500.2500 #### [facility] [address] [place], [place], [id number] Erythrocyte distribution wid th ratioOrdered By: Shakeel Rehman on 08-17-2024 Erythrocyte distribution width (RBC) [Ratio] 17.1 % High 11.6-14.6 [facility] Comment on above: Performed By: #### L 501.5200, L501.4021, L100.0100, L500.2500 #### [facility] [address] [place], [place], [address] Erythrocyte distribution wid th standard deviationOrdered By: Shakeel Rehman on 08-17-2024 Erythrocyte distribution width (RBC) [Ratio] 48.9 fl High 35.1-43.9 [facility] Glomerular filtration rate ( GFR) estimation/1.73 sq m using serum, plasma, or whole bOrdered By: Shakeel Rehman on 08-17-2024 GFR/1.73 sq M.predicted among non-blacks MDRD (S/P/Bld) [Vol rate/Area] 27 mL/min/{1.73_m2} Low >60 [facility] Comment on above: mL/min/1.73m2 CKD-EP I Creatinine Equation (2020) Result Comment: mL/m in/1.73m2 CKD-EPI Creatinine Equation (2020) Performed By: #### L 501.5200, L501.4021, L100.0100, L500.2500 #### [facility] [address] [place], [address] Hemoglobin measurementOrdere d By: Shakeel Rehman on 08-17-2024 Hemoglobin (Bld) [Mass/Vol] 7.5 g/dL Low 12.0-15.0 [facility] Comment on above: Performed By: #### L 501.5200, L501.4021, L100.0100, L500.2500 #### [facility] [address] [place], [address] Immature granulocytes/100 WB C Auto (Bld)Ordered By: Shakeel Rehman on 08-17-2024 Immature granulocytes/100 WBC (Bld) 0.600 % 0.0-0.9 [facility] Comment on above: IG% - Immature Granu locytes (promyelocytes, myelocytes and metamyelocytes) > 1% indicates that a LEFT SHIFT is Present. L499.0042on 08-17-2024 Trop T High Sen 17 ng/L High <=14 [facility] Comment on above: Performed By: #### L 499.0042 ####[facility] [address] [place], [address] L501.4021on 08-17-2024 Trop T High Sen 16 ng/L High <=14 [facility] Comment on above: Performed By: #### L 501.5200, L501.4021, L100.0100, L500.2500 #### [facility] [address] [place], [address] MCV (mean corpuscular volume ) determinationOrdered By: Shakeel Rehman on 07-13-2025 MCV (RBC) [Entitic vol] 80.1 fL Low 81-99 [facility] Comment on above: Performed By: #### L 501.5200, L501.4021, L100.0100, L500.2500 #### [facility] [address] [place], [address] Magnesiumon 08-17-2024 Magnesium [Mass/Vol] 2.0 mg/dL Normal 1.5-2.2 [facility] Comment on above: Performed By: #### L 501.5200, L501.4021, L100.0100, L500.2500 #### [facility] [address] [place], [address] Magnesium measurement (mass/ volume)Ordered By: Shakeel Rehman on 08-17-2024 Magnesium (Unsp spec) [Mass/Vol] 2.0 mg/dL 1.5-2.2 [facility] Mean corpuscular hemoglobin (MCH) determinationOrdered By: Shakeel Rehman on 08-17-2024 MCH (RBC) [Entitic mass] 23.7 pg Low 27.0-32.0 [facility] Comment on above: Performed By: #### L 501.5200, L501.4021, L100.0100, L500.2500 #### [facility] [address] [place], [address] Mean corpuscular hemoglobin concentration (MCHC) determinationOrdered By: Shakeel Rehman on 08-17-2024 MCHC (RBC) [Mass/Vol] 29.6 g/dL Low 32-36 [facility] Comment on above: Performed By: #### L 501.5200, L501.4021, L100.0100, L500.2500 #### [facility] [address] [place], [address] Mean platelet volume determi nationOrdered By: Shakeel Rehman on 08-17-2024 Platelet mean volume (Bld) [Entitic vol] 11.1 fL Normal 6.2-12.0 [facility] Comment on above: Performed By: #### L 501.5200, L501.4021, L100.0100, L500.2500 #### [facility] [address] [place], [address] Monocyte percentageOrdered B y: Shakeel Rehman on 08-17-2024 Monocytes/100 WBC (Bld) 8.3 % Normal 0-10 [facility] Comment on above: Performed By: #### L 501.5200, L501.4021, L100.0100, L500.2500 #### [facility] [address] [place], [address] Neutrophil percentageOrdered By: Shakeel Rehman on 08-17-2024 Neutrophils/100 WBC (Bld) 67.0 % Normal 47-70 [facility] Comment on above: Performed By: #### L 501.5200, L501.4021, L100.0100, L500.2500 #### [facility] [address] [place], [address] Nucleated red blood cell per centageOrdered By: Shakeel Rehman on 08-17-2024 Nucleated RBC/100 WBC (Bld) [Ratio] 0 % 0-5 [facility] Platelet countOrdered By: Patric Rehman on 08-17-2024 Platelets (Bld) [#/Vol] 217 10*3/uL Normal 150-450 [facility] Comment on above: Performed By: #### L 501.5200, L501.4021, L100.0100, L500.2500 #### [facility] [address] [place], [address] Potassium measurement (mass/ volume)Ordered By: Shakeel Rehman on 08-17-2024 Potassium (Unsp spec) [Mass/Vol] 4.7 mmol/L 3.3-5.1 [facility] Comment on above: Hemolysis present, R esults could be affected. Serum creatinine measurement (mass/volume)Ordered By: Shakeel Rehman on 08-17-2024 Creatinine [Mass/Vol] 1.78 mg/dL High 0.70-1.20 [facility] Comment on above: Performed By: #### L 501.5200, L501.4021, L100.0100, L500.2500 #### [facility] [address] [place], [address] Serum glucose measurement (m ass/volume)Ordered By: Shakeel Rehman on 08-17-2024 Glucose [Mass/Vol] 119 mg/dL High 70-99 [facility] Comment on above: Performed By: #### L 501.5200, L501.4021, L100.0100, L500.2500 #### [facility] [address] [place], [address] Serum or plasma calcium [place]an[place] urement (mass/volume)Ordered By: Shakeel Rehman on 08-17-2024 Calcium [Mass/Vol] 8.5 mg/dL Normal 7.6-11.0 [facility] Comment on above: Performed By: #### L 501.5200, L501.4021, L100.0100, L500.2500 #### [facility] [address] [place], [address] Serum or plasma urea nitroge n measurement (mass/volume)Ordered By: Shakeel Rehman on 08-17-2024 Urea nitrogen [Mass/Vol] 31 mg/dL High 4-19 [facility] Comment on above: Performed By: #### L 501.5200, L501.4021, L100.0100, L500.2500 #### [facility] [address] [place], [address] Sodium levelOrdered By: Lindsey Rehman on 08-17-2024 Sodium [Moles/Vol] 139 mmol/L Normal 133-145 [facility] Comment on above: Performed By: #### L 501.5200, L501.4021, L100.0100, L500.2500 #### [facility] [address] [place], [place], [id number] Troponin T.cardiac [Mass/vol ume] in Serum or Plasma by High sensitivity methodOrdered By: Shakeel Rehman on 08-17-2024 Troponin T.cardiac High sensitivity method [Mass/Vol] 16 ng/L High <14 [facility] Troponin T.cardiac High sensitivity method [Mass/Vol] 17 ng/L High <14 [facility] White blood cell (WBC) count Ordered By: Shakeel Rehman on 08-17-2024 WBC (Bld) [#/Vol] 8.3 10*3/uL Normal 4.4-11.0 [facility] Comment on above: Performed By: #### L 501.5200, L501.4021, L100.0100, L500.2500 #### [facility] [address] [place], [place], [address] CBC (INCLUDES DIFF/PLT)on Basophils (Bld) [#/Vol] 0.026 10*3/uL Normal 0-200 [facility] Comment on above: Performed By: #### 9 4446, 6920, 9900 #### [facility] [address], [address] [place] [address] Employment Services Director: Blanco Burger MD Basophils/100 WBC (Bld) 0.3 % Normal [facility] Comment on above: Performed By: #### 9 1312, 7600, 5199 #### [facility] [place] [address] [place] , [address] [place], [place] [id number] Employment Services Director: Blanco Burger MD Eosinophils (Bld) [#/Vol] 0.183 10*3/uL Normal 15-500 [facility] Comment on above: Performed By: #### 9 983, 7600, 5799 #### [facility] [address], [address] [place] [address] Employment Services Director: Blanco Burger MD Eosinophils/100 WBC (Bld) 2.1 % Normal [facility] Comment on above: Performed By: #### 9 207, 7600, 6399 #### [facility] of [place] [address] Employment Services Director: Blanco Burger MD Erythrocyte distribution width (RBC) [Ratio] 15.7 % High 11.0-15.0 [facility] Comment on above: Performed By: #### 9 355, 0, 6399 #### [facility] of [address], [address] [place] [address] Employment Services Director: Blanco Burger MD Hematocrit (Bld) [Volume fraction] 27.0 % Low 35.0-45.0 [facility] Comment on above: Performed By: #### 9 334, 760, 6399 #### [facility] of [place] [address] Employment Services Director: Blanco Burger MD Hemoglobin (Bld) [Mass/Vol] 7.8 g/dL Low 11.7-15.5 [facility] Comment on above: Performed By: #### 9 824, 7599, 6399 #### [facility] of [place] [address] Employment Services Director: Blanco Burger MD Lymphocytes (Bld) [#/Vol] 1.514 10*3/uL Normal 850-3900 [facility] Comment on above: Performed By: #### 9 183, 7599, 6399 #### [facility] of [place] [address] Employment Services Director: Blanco Burger MD Lymphocytes/100 WBC (Bld) 17.4 % Normal [facility] Comment on above: Performed By: #### 9 075, 760, 6399 #### [facility] of [place] [address] Employment Services Director: Blanco Burger MD MCH (RBC) [Entitic mass] 23.5 pg Low 27.0-33.0 [facility] Comment on above: Performed By: #### 9 4235, 7600, 6399 #### [facility] of [address], [address] [place] [address] Employment Services Director: Blanco Burger MD MCHC (RBC) [Mass/Vol] 28.9 g/dL Low 32.0-36.[address] [facility] Comment on above: Result Comment: For adults, a slight decrease in the calculated MCHC value (in the range of 30 to 32 g/dL) is most likely not clinically significant; however, it should be interpreted with caution in correlation with other red cell parameters and the patient's clinical condition. Performed By: #### 9 4595, 7600, 6399 #### [facility] of [place] [address] Employment Services Director: Blanco Burger MD MCV (RBC) [Entitic vol] 81.3 fL Normal 80.0-100.0 [facility] Comment on above: Performed By: #### 9 251, 7600, 6399 #### [facility] of [address], [address] [place] [address] Employment Services Director: Blanco Burger MD Monocytes (Bld) [#/Vol] 0.887 10*3/uL Normal 200-950 [facility] Comment on above: Performed By: #### 9 081, 7600, 6399 #### [facility] [place] [address] Employment Services Director: Blanco Burger MD Monocytes/100 WBC (Bld) 10.2 % Normal [facility] Comment on above: Performed By: #### 9 6345, 7600, 6399 #### [facility] [place] [address] Employment Services Director: Blanco Burger MD Neutrophils (Bld) [#/Vol] 6.09 10*3/uL Normal 5734-7830 [facility] Comment on above: Performed By: #### 9 269, 7600, 6399 #### [facility] of [address], [address] [place] [address] Employment Services Director: Blanco Burger MD Neutrophils/100 WBC (Bld) 70 % Normal [facility] Comment on above: Performed By: #### 9 2275, 7600, 6399 #### [facility] of [address], [address] [place] [address] Employment Services Director: Blanco Burger MD Platelet mean volume (Bld) [Entitic vol] 11.8 fL Normal 7.5-12.5 [facility] Comment on above: Performed By: #### 9 5335, 7600, 6399 #### [facility] of [address], [address] [place] [address] Employment Services Director: Blanco Burger MD Platelets (Bld) [#/Vol] 213 10*3/uL Normal 140-400 [facility] Comment on above: Performed By: #### 9 311, 0, 6399 #### [facility] of [address], [address] [place] [address] Employment Services Director: Blanco Burger MD RBC (Bld) [#/Vol] 3.32 10*6/uL Low 3.80-5.10 [facility] Comment on above: Performed By: #### 9 7855, 7600, 6399 #### [facility] of [address], [address] [place] [address] Employment Services Director: Blanco Burger MD WBC (Bld) [#/Vol] 8.7 10*3/uL Normal 3.8-10.8 [facility] Comment on above: Performed By: #### 9 7965, 7600, 6399 #### [facility] of [address], [address] [place] [address] Employment Services Director: Blanco Burger MD COMPREHENSIVE METABOLIC PANE L W/ANION GAPon 08-16-2024 Albumin [Mass/Vol] 3.5 g/dL Low 3.6-5.1 [facility] Comment on above: Performed By: #### 9 597, 7600, 6399 #### [facility] of [address], [address] [place] [address] Employment Services Director: Blanco Burger MD ALP [Catalytic activity/Vol] 67 U/L Normal 37-153 [facility] Comment on above: Performed By: #### 9 0845, 7600, 6399 #### [facility] of [address], [address] [place] [address] Employment Services Director: Blanco Burger MD ALT [Catalytic activity/Vol] 9 U/L Normal 6-29 [facility] Comment on above: Performed By: #### 9 2635, 7600, 6399 #### [facility] of [address], [address] [place] [address] Employment Services Director: Blanco Burger MD AST [Catalytic activity/Vol] 10 U/L Normal 10-35 [facility] Comment on above: Performed By: #### 9 004, 7600, 6399 #### [facility] of [address], [address] [place] [address] Employment Services Director: Blanco Burger MD Bilirubin [Mass/Vol] 0.8 mg/dL Normal 0.2-1.2 [facility] Comment on above: Performed By: #### 9 0075, 7600, 6399 #### [facility] of [place] [address] Employment Services Director: Blanco Burger MD Calcium [Mass/Vol] 8.7 mg/dL Normal 8.6-10.4 [facility] Comment on above: Performed By: #### 9 459, 7600, 6399 #### [facility] of [address], [address] [place] [address] Employment Services Director: Blanco Burger MD Chloride [Moles/Vol] 108 mmol/L Normal 98-110 [facility] Comment on above: Performed By: #### 9 802, 7600, 6399 #### [facility] of [place] [address] Employment Services Director: Blanco Burger MD CO2 [Moles/Vol] 23 mmol/L Normal 20-32 [facility] Comment on above: Performed By: #### 9 2665, 7600, 6399 #### [facility] [address], [address] [place] [address] Employment Services Director: Blanco Burger MD Creatinine [Mass/Vol] 1.50 mg/dL High 0.60-0.[address] [facility] Comment on above: Performed By: #### 9 2665, 7600, 6399 #### [facility] [address], [address] [place] [address] Employment Services Director: Blanco Burger MD ELECTROLYTE BALANCE 9 mmol/L (calc) Normal 7-17 [facility] Comment on above: Performed By: #### 9 2665, 7600, 6399 #### [facility] [address], [address] [place] [address] Employment Services Director: lBanco Burger MD GFR/1.73 sq M.predicted among non-blacks MDRD (S/P/Bld) [Vol rate/Area] 33 mL/min/{1.73_m2} Low > OR = 60 [facility] Comment on above: Performed By: #### 9 5155, 7600, 6399 #### [facility] [place] [address] Employment Services Director: Blanco Burger MD Glucose [Mass/Vol] 133 mg/dL High 65-99 [facility] Comment on above: Result Comment: Fasting reference interval For someone without known diabetes, a glucose value >125 mg/dL indicates that they may have diabetes and this should be confirmed with a follow-up test. Performed By: #### 9 8905, 7600, 6399 #### [facility] [address], [address] [place] [address] Employment Services Director: Blanco Burger MD Potassium [Moles/Vol] 4.5 mmol/L Normal 3.5-5.[address] [facility] Comment on above: Performed By: #### 9 2665, 7600, 6399 #### [facility] [place] [address] Employment Services Director: Blanco Burger MD Protein [Mass/Vol] 6.3 g/dL Normal 6.1-8.1 [facility] Comment on above: Performed By: #### 9 2095, 7600, 6399 #### [facility] [address], [address] [place] [address] Employment Services Director: Blanco Burger MD Sodium [Moles/Vol] 140 mmol/L Normal 135-146 [facility] Comment on above: Performed By: #### 9 2665, 7600, 6399 #### [facility] of [address], [address] [place] [address] Employment Services Director: Blanco Burger MD Urea nitrogen [Mass/Vol] 27 mg/dL High 7-25 [facility] Comment on above: Performed By: #### 9 8705, 7600, 6399 #### [facility] [address], [address] [place] [address] Employment Services Director: Blanco Burger MD HEMOGLOBIN A1c WITH eAGon eAG (mmol/L) 8.7 mmol/L Normal [facility] Comment on above: Performed By: #### 9 4305, 7600, 6399 #### [facility] [address], [address] [place] [address] Employment Services Director: Blanco Burger MD HbA1c (Bld) [Mass fraction] 7.1 % High <5.7 [facility] Comment on above: Result Comment: For someone without known diabetes, a hemoglobin A1c value of 6.5% or greater indicates that they may have diabetes and this should be confirmed with a follow-up test. For someone with known diabetes, a value <7% indicates that their diabetes is well controlled and a value greater than or equal to 7% indicates suboptimal control. A1c targets should be individualized based on duration of diabetes, age, comorbid conditions, and other considerations. Currently, no consensus exists regarding use of hemoglobin A1c for diagnosis of diabetes for children. Performed By: #### 9 7605, 7600, 6399 #### [facility] [address], [address] [place] [address] Employment Services Director: Blanco Burger MD Magnesium [Mass/Vol] 157 mg/dL Normal [facility] Comment on above: Performed By: #### 9 2875, 7600, 6399 #### [facility] [address], [address] [place] [address] Employment Services Director: Blanco Burger MD LIPID PANEL, [facility] 08-05 Cholesterol [Mass/Vol] 92 mg/dL Normal <200 [facility] Comment on above: Performed By: #### 9 2665, 7600, 6399 #### [facility] [address], [address] [place] [address] Employment Services Director: Blanco Burger MD Cholesterol in HDL [Mass/Vol] 38 mg/dL Low > OR = 50 [facility] Comment on above: Performed By: #### 9 8415, 7600, 6399 #### [facility] [address], [address] [place] [address] Employment Services Director: Blanco Burger MD Cholesterol in LDL [Mass/Vol] 37 mg/dL Normal [facility] Comment on above: Result Comment: Refe rence range: <100 Desirable range <100 mg/dL for primary prevention; <70 mg/dL for patients with CHD or diabetic patients with > or = 2 CHD risk factors. LDL-C is now calculated using the Phill-Radha calculation, which is a validated novel method providing better accuracy than the Friedewald equation in the estimation of LDL-C. Phill BLANCA et al. BARBY. 2013;310(19): 3873-4956 (http://education.[employer]/faq/AOR224) Performed By: #### 9 0675, 7600, 6399 #### [facility] [address], [address] [place] [address] Employment Services Director: Blanco Burger MD Cholesterol.total/Mary sterol in HDL [Mass ratio] 2.4 {ratio} Normal <5.0 [facility] Comment on above: Performed By: #### 9 2665, 7600, 6399 #### [facility] [address], [address] [place] [address] Employment Services Director: Blanco Burger MD NON HDL CHOLESTEROL 54 mg/dL (calc) Normal <130 [facility] Comment on above: Result Comment: For patients with diabetes plus 1 major ASCVD risk factor, treating to a non-HDL-C goal of <100 mg/dL (LDL-C of <70 mg/dL) is considered a therapeutic option. Performed By: #### 9 2665, 7600, 6399 #### [facility] [address], [address] [place] [address] Employment Services Director: Blanco Burger MD Triglyceride [Mass/Vol] 85 mg/dL Normal <150 [facility] Comment on above: Performed By: #### 9 9555, 7600, 6399 #### [facility] [address], [address] [place] [address] Employment Services Director: Blanco Burger MD Comprehensive metabolic 2000 panelon 11-26-2023 Albumin BCP dye [Mass/Vol] 3.4 g/dL Normal 3.4-5.0 [facility] Comment on above: Performed By: #### 2 4323-8 #### MARGO Brown ([id number]) [facility] ([facility]) [address] [place] [address] ALP [Catalytic activity/Vol] 68 U/L Normal 33-136 [facility] Comment on above: Performed By: #### 2 4323-8 #### MARGO Brown ([id number]) [facility] ([facility]) [id number] [place] [id number] ALT With P-5'-P [Catalytic activity/Vol] 24 U/L Normal 7-45 [facility] Comment on above: Result Comment: Carlota ents treated with Sulfasalazine may generate falsely decreased results for ALT. Performed By: #### 2 4323-8 #### MARGO Brown ([id number]) [facility] ([facility]) [id number] [place] [address] Anion gap [Moles/Vol] 13 mmol/L Normal 10-20 [facility] Comment on above: Performed By: #### 2 4323-8 #### MARGO Brown ([id number]) [facility] ([facility]) [address] [place] [address] AST With P-5'-P [Catalytic activity/Vol] 17 U/L Normal 9-39 [facility] Comment on above: Performed By: #### 2 4323-8 #### MARGO Brown ([id number]) [facility] ([facility]) [address] [place] [address] 47920 Bilirubin [Mass/Vol] 0.6 mg/dL Normal 0.0-1.2 [facility] Comment on above: Performed By: #### 2 4323-8 #### MARGO Brown ([id number]) [facility] ([facility]) [address] [place] [address] 95434 Calcium [Mass/Vol] 9.0 mg/dL Normal 8.6-10.6 [facility] Comment on above: Performed By: #### 2 4323-8 #### MARGO Brown ([id number]) [facility] ([facility]) [address] [place] [address] 81722 Chloride [Moles/Vol] 109 mmol/L High 98-107 [facility] Comment on above: Performed By: #### 2 4323-8 #### MARGO Brown ([id number]) [facility] ([facility]) [address] [place] [address] 56433 CO2 [Moles/Vol] 26 mmol/L Normal 21-32 [facility] Comment on above: Performed By: #### 2 4323-8 #### MARGO Brown ([id number]) [facility] ([facility]) [address] [place] [address] 89974 Creatinine [Mass/Vol] 1.64 mg/dL High 0.50-1.05 [facility] Comment on above: Performed By: #### 2 4323-8 #### MARGO Brown ([id number]) [facility] ([facility]) [address] [place] [address] Glomerular filtration rate/1.73 sq M.predicted 30 mL/min/1.73m*2 Low >60 [facility] Comment on above: Result Comment: Calc ulations of estimated GFR are performed using the 2020 CKD-EPI Study Refit equation without the race variable for the IDMS-Traceable creatinine methods. https://jasn.asnjournals.org/content/early/ASN.2020 200459 Performed By: #### 2 4323-8 #### MARGO RICE L ([id number]) [facility] ([facility]) [address] [place] [address] 51700 Glucose [Mass/Vol] 166 mg/dL High 74-99 [facility] Comment on above: Performed By: #### 2 4323-8 #### MARGO LONGOER L ([id number]) [facility] ([facility]) [address] [place] [address] 86749 Potassium [Moles/Vol] 4.6 mmol/L Normal 3.5-5.3 [facility] Comment on above: Performed By: #### 2 4323-8 #### MARGO MULLENMOTZER L ([id number]) [facility] ([facility]) [address] [place] [address] 78798 Protein [Mass/Vol] 5.9 g/dL Low 6.4-8.2 [facility] Comment on above: Performed By: #### 2 4323-8 #### MARGO MULLENMOTZER L ([id number]) [facility] ([facility]) [address] [place] [address] 46020 Sodium [Moles/Vol] 143 mmol/L Normal 136-145 [facility] Comment on above: Performed By: #### 2 4323-8 #### MARGO MULLENMOTZER L ([id number]) [facility] ([facility]) [address] [place] [address] 39526 Urea nitrogen [Mass/Vol] 22 mg/dL Normal 6-23 [facility] Comment on above: Performed By: #### 2 4323-8 #### MARGO Brown ([id number]) [facility] ([facility]) [address] [place], [place] [phone] HbA1c (Bld) [Mass fraction]o n 11-26-2023 Average glucose Estimated from glycated hemoglobin (Bld) [Mass/Vol] 146 mg/dL Normal Not Established [facility] Comment on above: Order Comment: Diagn osis of Diabetes-Adults Non-Diabetic: < or = 5.6% Increased risk for developing diabetes: 5.7-6.4% Diagnostic of diabetes: > or = 6.5% Performed By: #### 4 548-4 #### MARGO Brown ([id number]) [facility] ([facility]) [address] [place] [address] Hemoglobin A1c/Hemoglobin.to josue 11-26-2023 HbA1c (Bld) [Mass fraction] 6.7 % High See comment [facility] Comment on above: Order Comment: Diagn osis of Diabetes-Adults Non-Diabetic: < or = 5.6% Increased risk for developing diabetes: 5.7-6.4% Diagnostic of diabetes: > or = 6.5% Performed By: #### 4 548-4 #### MARGO Brown ([id number]) [facility] ([facility]) [address] [place], [place] [phone] Echo Completeon 11-14-2023 Echo Complete [facility] [address] [place] [address] 81835 Echo Complete 11/14/23 1403 MR#: [id number] Acct: [id number] Name: INGRID DONALD Rep #: [id number] : 1935 87 From: Art Melara MD Attending Dr: Dr. Art Melara MD Status: REG CLI Ordering Dr: Art Melara MD Date: 11/14/23 Location: [facility] Sex: F C Admitted: Reason For Study: [...] cm2 RVDd: 3.0 cm FS: 59.3 % _ asc Aorta Diam: 3.1 cm LAV(MOD-bp): 60.9 ml LVAd ap4: 16.1 cm2 LAV(MOD-bp) Indexed: 34.3 ml/m2 LVLd ap4: 6.0 cm LAV(MOD-sp2): 57.1 ml EDV(MOD-sp4): 35.7 ml LAV(MOD-sp4): 60.1 ml EDV(sp4-el): 36.8 ml LVAs ap4: 7.5 cm2 LVLs ap4: 5.0 cm ESV(MOD-sp4): 10.3 ml ESV(sp4-el): 9.7 ml EF(MOD-sp4): 71.1 % EF(sp4-el): 73.5 % _ LVAd ap2: 13.8 cm2 SV(MOD-sp4): 25.4 ml SV(MOD-sp2): 17.1 ml LVLd ap2: 6.2 cm EDV(MOD-sp2): 25.3 ml EDV(sp2-el): 26.4 ml LVAs ap2: 7.1 cm2 LVLs ap2: 5.3 cm ESV(MOD-sp2): 8.3 ml ESV(sp2-el): 8.1 ml EF(MOD-sp2): 67.4 % _ SV(sp4-el): 27.0 ml Ao sinus diam: 2.[address] Junction: 2.2 cm _ LA dimension(2D): 4.1 cm LA A4 area: 21.3 cm2 RA A4 area: 8.8 cm2 _ TAPSE: 2.1 cm Time Measurements MV dec time: 0.32 sec Doppler Measurements Calculations MV E max edmundo: 114.9 cm/sec Lat Peak E' Edmundo: 5.2 cm/sec Med Peak E' Edmundo: 4.3 cm/sec MV A max edmundo: 131.4 cm/sec E/E' lat: 22.3 E/E' med: 26.6 MV E/A: 0.87 _ MV V2 max: 169.7 cm/sec MV dec [...] 0.60 NATHANIEL(I,D): 1.8 cm2 NATHANIEL(V,D): 1.7 cm2 _ AI max edmundo: 460.3 cm/sec LV V1 max: 140.8 cm/sec SV(LVOT): 92.9 ml AI max P.7 mmHg LV V1 max P.9 mmHg LV V1 mean P.0 mmHg AI dec slope: 307.8 cm/sec2 LV V1 mean: 107.7 cm/sec AI P1/2t: 438.1 msec LV V1 VTI: 31.7 cm _ PA V2 max: 126.7 cm/sec TR max [...] aortic valve stenosis. Moderate aortic valve regurgitation. Ordering Physician: Art Melara Referring Physician: Art Melara MD Performed By: [address] [facility] 11/15/23910 Date Art Melara MD CC: Dr. Art Melara MD; Dr. Eitan Price MD Date Dictated: 11/14/23 140 Date Transcribed: 11/15/23910 Shop Director: Signed [facility] 11-13-2023 [facility] Office Visit ([id number]) INGRID DONALD ([id number]) 1935 F Date Time Provider Department 11/13/23 [...] in prn basis. MD Lakesha Barajas Dianna, BRENDON 11/13/2023 10:41 AM Signed Injection prepared per order for Dr. Vazquez' and handed directly to him. Injection site: asaf knees BRENDON Qureshi (more content not included)... Normal [facility] Large Joint Arthro/Inj: bila teral knee [...] the patient voiced understanding of these instructions. [facility] No Panel Informationon 11-12 Standing 45 degree [...] dislocation. No overt signs of bony tumor. [facility] XR Knee - left 3 [facility] Study observation (narrative) [facility] XR Knee - right 3 [facility] Radiology Study observation (narrative) [facility] Comprehensive Metabolic Prof ilon 11-09-2023 Albumin [Mass/Vol] 3.3 g/dL Normal 3.2-5.0 [facility] Comment on above: Performed By: #### L 500.4090, L500.4100 #### [facility] [address] [place], [place], [address] Albumin/Globulin [Mass ratio] 0.9 {ratio} Normal 0.9-2.4 [facility] Comment on above: Performed By: #### L 500.4050, L500.4100 #### [facility] [address] [place], [address] ALK P 73 U/L Normal 45-117 [facility] Comment on above: Performed By: #### L 500.4050, L500.4100 #### [facility] [address] [place], [address] ALT [Catalytic activity/Vol] 18 U/L Normal 13-56 [facility] Comment on above: Performed By: #### L 500.4050, L500.4100 #### [facility] [address] [place], [address] AST [Catalytic activity/Vol] 14 U/L Low 15-37 [facility] Comment on above: Performed By: #### L 500.4050, L500.4100 #### [facility] [address] [place], [address] Bilirubin [Mass/Vol] 0.50 mg/dL Normal 0.20-1.00 [facility] Comment on above: Result Comment: For patients on eltrombopag therapy, use of Dimension [place] TBIL is not recommended. Performed By: #### L 500.4050, L500.4100 #### [facility] [address] [place], [address] BUN/CRE 17.7 RATIO Normal 10-20 [facility] Comment on above: Performed By: #### L 500.4050, L500.4100 #### [facility] [address] [place], [address] CA,Total 9.3 mg/dL Normal 8.5-10.1 [facility] Comment on above: Performed By: #### L 500.4050, L500.4100 #### [facility] [address] [place], [address] Chloride [Moles/Vol] 109 mmol/L High 98-107 [facility] Comment on above: Performed By: #### L 500.4050, L500.4100 #### [facility] [address] [place], [address] CO2 [Moles/Vol] 28.0 mmol/L Normal 21.0-32.0 [facility] Comment on above: Performed By: #### L 500.4050, L500.4100 #### [facility] [address] [place], [address] Creatinine [Mass/Vol] 1.75 mg/dL High 0.55-1.02 [facility] Comment on above: Result Comment: The validity of the calculated GFR GFRAA in patients over 70 years has not been determined. Clinical correlation is essential. Performed By: #### L 500.4050, L500.4100 #### [facility] [address] [place], [address] EST GFR - AA 35 mL/min Low >60 [facility] Comment on above: Result Comment: Afri can [place] GFR Calc Performed By: #### L 500.4050, L500.4100 #### [facility] [address] [place], [address] GAP 3 Low 5-15 [facility] Comment on above: Performed By: #### L 500.4050, L500.4100 #### [facility] [address] [place], [address] GFR/1.73 sq M.predicted among non-blacks MDRD (S/P/Bld) [Vol rate/Area] 29 mL/min/{1.73_m2} Low >60 [facility] Comment on above: Result Comment: Non- GFR Calc Performed By: #### L 500.4050, L500.4100 #### [facility] [address] [place], [address] Globulin (S) [Mass/Vol] 3.5 g/dL Normal 2.2-4.2 [facility] Comment on above: Performed By: #### L 500.4050, L500.4100 #### [facility] [address] [place], [address] Glucose [Mass/Vol] 117 mg/dL High 74-106 [facility] Comment on above: Result Comment: Fast ing Glucose result from 100 to 125 mg/dL suggests IMPAIRED HOMEOSTASIS per A.D.A. criteria. Performed By: #### L 500.4050, L500.4100 #### [facility] [address] [place], [address] Potassium [Moles/Vol] 4.9 mmol/L Normal 3.5-5.1 [facility] Comment on above: Performed By: #### L 500.4050, L500.4100 #### [facility] [address] [place], [address] Sodium [Moles/Vol] 140 mmol/L Normal 136-145 [facility] Comment on above: Performed By: #### L 500.4050, L500.4100 #### [facility] [address] [place], [address] T PROT 6.8 g/dL Normal 6.4-8.2 [facility] Comment on above: Performed By: #### L 500.4050, L500.4100 #### [facility] [address] [place], [address] Urea nitrogen [Mass/Vol] 31 mg/dL High 7-18 [facility] Comment on above: Performed By: #### L 500.4050, L500.4100 #### [facility] [address] [place], [address] Lipid Profileon 11-09-2023 Cholesterol [Mass/Vol] 102 mg/dL Normal 200 [facility] Comment on above: Result Comment: <200 mg/dL Desirable 200-240 mg/dL Borderline >240 mg/dL High Risk Performed By: #### L 500.4050, L500.4100 ####[facility] [address] [place], [address] Cholesterol in HDL [Mass/Vol] 53 mg/dL Normal [facility] Comment on above: Result Comment: The drugs N-Acetylcysteine and Metamizole may falsely depress this assay. Reference Range HDL <40 mg/dL Low HDL Cholesterol HDL >or= 60 mg/dL High HDL Cholesterol Performed By: #### L 500.4050, L500.4100 ####[facility] [address] [place], [address] Cholesterol in LDL [Mass/Vol] 33 mg/dL Normal 0-130 [facility] Comment on above: Performed By: #### L 500.4050, L500.4100 ####[facility] [address] [place], [address] Cholesterol in VLDL [Mass/Vol] 16 mg/dL Normal 5-40 [facility] Comment on above: Performed By: #### L 500.4050, L500.4100 ####[facility] [address] [place], [address] Triglyceride [Mass/Vol] 78 mg/dL Normal [facility] Comment on above: Result Comment: The drugs N-Acetylcysteine and Metamizole may falsely depress this assay. Serum Triglycerides Reference Interval Normal <150 mg/dL Borderline high 150 - 199 mg/dL High 200 - 499 mg/dL Very High > or = 500 mg/dL Performed By: #### L 500.4050, L500.4100 ####[facility] [address] [place], [address] Cardiology Visit Reporton Cardiology Visit Report [facility] [address] [place] [address] OFFICE VISIT Date of Service: 11/06/23 MR#: [id number] Acct: [id number] Name: INGRID DONALD Rep #: [id number] : 1935 Provider: Dr. 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 Corina (more content not included)... Normal [facility] XR KNEES ANTEROPOSTERIOR STA NDING BILATERALon 10-03-2023 XR KNEES ANTEROPOSTERIOR STANDING BILATERAL Interpreted By: Tequila Acevedo, STUDY: Bilateral knees, single standing AP view radiographs. INDICATION: Signs/Symptoms:pain. COMPARISON: None. ACCESSION NUMBER(S): [id number] ORDERING CLINICIAN: EITAN PRICE FINDINGS: No acute fracture or malalignment. 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 Akei-bl-mlsraheo medial and mild lateral compartment osteoarthrosis of the right knee. Ossified loose body in the lateral suprapatellar recess of the right knee. IMPRESSION: 1. Bilateral knee degenerative changes as above, left worse than right. MACRO: None Signed by: Tequila Acevedo 10/09/2023 1:54 PM Dictation workstation: [id number] Normal [facility] ECG 12 lead (Clinic Performe d)on 06-26-2023 SEE SCANNED RESULTS [facility] Work Phone: ECG 12 lead (Clinic Performe d)Ordered By: Meenakshi Gregg on 06-26-2023 [facility] Basic metabolic 2000 panelon 12-02-2022 Anion gap [Moles/Vol] 11 mmol/L 10 - 2 0 mmol/L [facility] Calcium [Mass/Vol] 8.9 mg/dL 8.6 - 10. 3 mg/dL [facility] Chloride [Moles/Vol] 107 mmol/L 98 - 10 7 mmol/L [facility] CO2 [Moles/Vol] 26 mmol/L 21 - 32 mmol/L [facility] Creatinine [Mass/Vol] 1.70 mg/dL High 0.50 - 1.05 mg/dL [facility] GFR/1.73 sq M.predicted MDRD (S/P/Bld) [Vol rate/Area] 29 mL/min/{1.73_m2} Low - PINF [facility] Comment on above: Calculations of stevo mated GFR are performed using the 2020 CKD-EPI Study Refit equation without the race variable for the IDMS-Traceable creatinine methods. https://jasn.asnjournals.org/content/early//ASN.2020 182444 Glucose [Mass/Vol] 102 mg/dL High 74 - 99 mg/dL [facility] Interpretation and review of laboratory results Abnormal [facility] Potassium [Moles/Vol] 4.5 mmol/L 3.5 - 5.3 mmol/L [facility] Sodium [Moles/Vol] 139 mmol/L 136 - 145 mmol/L [facility] Urea nitrogen [Mass/Vol] 34 mg/dL High 6 - 23 mg/dL [facility] Anion gap [Moles/Vol] 11 mmol/L Normal 10-20 [facility] Comment on above: Performed By: #### 2 4321-2 ####JANE BOLAÑOS ([id number])[facility] ([facility])[address] [facility] [place] [address] Calcium [Mass/Vol] 8.9 mg/dL Normal 8.6-10.3 [facility] Comment on above: Performed By: #### 2 4321-2 ####JANE BOLAÑOS ([id number])[facility] ([facility])[address] [place] [address] Chloride [Moles/Vol] 107 mmol/L Normal 98-107 [facility] Comment on above: Performed By: #### 2 4321-2 ####JANE BOLAÑOS ([id number])[facility] ([facility])[address] [place] [address] CO2 [Moles/Vol] 26 mmol/L Normal 21-32 [facility] Comment on above: Performed By: #### 2 4321-2 ####JANE BOLAÑOS ([id number])[facility] ([facility])[address] [facility] [place] [address] Creatinine [Mass/Vol] 1.70 mg/dL High 0.50-1.05 [facility] Comment on above: Performed By: #### 2 4321-2 ####JANE BOLAÑOS ([id number])[facility] ([facility])[address] [facility] [place] [address] GFR/1.73 sq M.predicted MDRD (S/P/Bld) [Vol rate/Area] 29 mL/min/1.73m*2 Low >60 [facility] Comment on above: Result Comment: Calc ulations of estimated GFR are performed using the 2020 CKD-EPI Study Refit equation without the race variable for the IDMS-Traceable creatinine methods. https://jasn.asnjournals.org/content/early/ASN.2020 961580 Performed By: #### 2 432-2 ####JANE BOLAÑOS ([id number])[facility] ([facility])[address] [facility] [place] [address] Glucose [Mass/Vol] 102 mg/dL High 74-99 [facility] Comment on above: Performed By: #### 2 432-2 ####JANE BOLAÑOS ([id number])[facility] ([facility])[address] [place] [address] Potassium [Moles/Vol] 4.5 mmol/L Normal 3.5-5.3 [facility] Comment on above: Performed By: #### 2 4321-2 ####JANE BOLAÑOS ([id number])[facility] ([facility])[address] [facility] [place] [address] Sodium [Moles/Vol] 139 mmol/L Normal 136-145 [facility] Comment on above: Performed By: #### 2 4321-2 ####JANE BOLAÑOS ([id number])[facility] ([facility])[address] [place] [address] Urea nitrogen [Mass/Vol] 34 mg/dL High 6-23 [facility] Comment on above: Performed By: #### 2 4321-2 ####JANE BOLAÑOS ([id number])[facility] ([facility])[address] [place] [address] CBC panel Auto (Bld)on 12-02 Erythrocyte distribution width (RBC) [Ratio] 15.8 % High 11.5 - 14.5 % [facility] Hematocrit (Bld) [Volume fraction] 39.1 % 36.0 - 46.0 % [facility] Hemoglobin (Bld) [Mass/Vol] 12.3 g/dL 12.0 - 16.0 g/dL [facility] Interpretation and review of laboratory results Abnormal [facility] MCH (RBC) [Entitic mass] 28.3 pg 26.0 - 34.0 pg [facility] MCHC (RBC) [Mass/Vol] 31.5 g/dL Low 32.0 - 36.0 g/dL [facility] MCV (RBC) [Entitic vol] 90 fL 80 - 100 fL [facility] Nucleated RBC/100 WBC (Bld) [Ratio] 0.0 % [facility] Platelet mean volume (Bld) [Entitic vol] 12.2 fL High 7.5 - 11.5 fL [facility] Platelets (Bld) [#/Vol] 161 10*3/uL [facility] RBC (Bld) [#/Vol] 4.34 10*6/uL [facility] WBC (Bld) [#/Vol] 8.7 10*3/uL [facility] Erythrocyte distribution width (RBC) [Ratio] 15.8 % High 11.5-14.5 [facility] Comment on above: Performed By: #### 5 8410-2 ####JANE BOLAÑOS ([id number])[facility] ([facility])[address] [place] [address] Hematocrit (Bld) [Volume fraction] 39.1 % Normal 36.0-46.0 [facility] Comment on above: Performed By: #### 5 8410-2 ####JANE BOLAÑOS ([id number])[facility] ([facility])[address] [place] [address] Hemoglobin (Bld) [Mass/Vol] 12.3 g/dL Normal 12.0-16.0 [facility] Comment on above: Performed By: #### 5 8410-2 ####JANE BOLAÑOS ([id number])[facility] ([facility])[address] [place] [address] MCH (RBC) [Entitic mass] 28.3 pg Normal 26.0-34.0 [facility] Comment on above: Performed By: #### 5 8410-2 ####JANE BOLAÑOS ([id number])[facility] ([facility])[address] [place] [address] MCHC (RBC) [Mass/Vol] 31.5 g/dL Low 32.0-36.0 [facility] Comment on above: Performed By: #### 5 8410-2 ####JANE BOLAÑOS ([id number])[facility] ([facility])[address] [place] [address] MCV (RBC) [Entitic vol] 90 fL Normal 80-100 [facility] Comment on above: Performed By: #### 5 8410-2 ####JANE BOLAÑOS ([id number])[facility] ([facility])[address] [place] [address] Nucleated RBC/100 WBC (Bld) [Ratio] 0.0 /100 WBCs Normal 0.0-0.0 [facility] Comment on above: Performed By: #### 5 8410-2 ####JANE BOLAÑOS ([id number])[facility] ([facility])[address] [place] [address] Platelet mean volume (Bld) [Entitic vol] 12.2 fL High 7.5-11.5 [facility] Comment on above: Performed By: #### 5 8410-2 ####JANE BOLAÑOS ([id number])[facility] ([facility])[address] [place] [address] Platelets (Bld) [#/Vol] 161 x10*3/uL Normal 150-450 [facility] Comment on above: Performed By: #### 5 8410-2 ####JANE BOLAÑOS ([id number])[facility] ([facility])[address] [place] [address] RBC (Bld) [#/Vol] 4.34 x10*6/uL Normal 4.00-5.20 [facility] Comment on above: Performed By: #### 5 8410-2 ####JANE BOLAÑOS ([id number])[facility] ([facility])[address] [place] [address] WBC (Bld) [#/Vol] 8.7 x10*3/uL Normal 4.4-11.3 [facility] Comment on above: Performed By: #### 5 8410-2 ####JANE BOLAÑOS ([id number])[facility] ([facility])[address] [place] [address] Basic metabolic 2000 panelon 11-30-2022 Anion gap [Moles/Vol] 13 mmol/L 10 - 2 0 mmol/L [facility] Calcium [Mass/Vol] 9.3 mg/dL 8.6 - 10. 3 mg/dL [facility] Chloride [Moles/Vol] 109 mmol/L High 98 - 10 7 mmol/L [facility] CO2 [Moles/Vol] 24 mmol/L 21 - 32 mmol/L [facility] Creatinine [Mass/Vol] 1.49 mg/dL High 0.50 - 1.05 mg/dL [facility] GFR/1.73 sq M.predicted MDRD (S/P/Bld) [Vol rate/Area] 34 mL/min/{1.73_m2} Low - PINF [facility] Comment on above: Calculations of stevo mated GFR are performed using the 2020 CKD-EPI Study Refit equation without the race variable for the IDMS-Traceable creatinine methods. https://jasn.asnjournals.org/content//ASN.2020 688904 Glucose [Mass/Vol] 123 mg/dL High 74 - 99 mg/dL [facility] Interpretation and review of laboratory results Abnormal [facility] Potassium [Moles/Vol] 4.6 mmol/L 3.5 - 5.3 mmol/L [facility] Sodium [Moles/Vol] 141 mmol/L 136 - 145 mmol/L [facility] Urea nitrogen [Mass/Vol] 27 mg/dL High 6 - 23 mg/dL [facility] Anion gap [Moles/Vol] 13 mmol/L Normal 10-20 [facility] Comment on above: Performed By: #### 2 4321-2 ####JANE BOLAÑOS ([id number])[facility] ([facility])[address] [place] [address] Calcium [Mass/Vol] 9.3 mg/dL Normal 8.6-10.3 [facility] Comment on above: Performed By: #### 2 4321-2 ####JANE BOLAÑOS ([id number])[facility] ([facility])[address] [place] [address] Chloride [Moles/Vol] 109 mmol/L High 98-107 [facility] Comment on above: Performed By: #### 2 4321-2 ####JANE BOLAÑOS ([id number])[facility] ([facility])[address] [place] [address] CO2 [Moles/Vol] 24 mmol/L Normal 21-32 [facility] Comment on above: Performed By: #### 2 4321-2 ####JANE BOLAÑOS ([id number])[facility] ([facility])[address] [place] [address] Creatinine [Mass/Vol] 1.49 mg/dL High 0.50-1.05 [facility] Comment on above: Performed By: #### 2 4321-2 ####JANE BOLAÑOS ([id number])[facility] ([facility])[address] [place] [address] GFR/1.73 sq M.predicted MDRD (S/P/Bld) [Vol rate/Area] 34 mL/min/1.73m*2 Low >60 [facility] Comment on above: Result Comment: Calc ulations of estimated GFR are performed using the 2020 CKD-EPI Study Refit equation without the race variable for the IDMS-Traceable creatinine methods. https://jasn.asnjournals.org/content/early//ASN.2020 267978 Performed By: #### 2 4321-2 ####JANE BOLAÑOS ([id number])[facility] ([facility])[address] [place] [address] Glucose [Mass/Vol] 123 mg/dL High 74-99 [facility] Comment on above: Performed By: #### 2 4321-2 ####JANE BOLAÑOS ([id number])[facility] ([facility])[address] [place] [address] Potassium [Moles/Vol] 4.6 mmol/L Normal 3.5-5.3 [facility] Comment on above: Performed By: #### 2 4321-2 ####JANE BOLAÑOS ([id number])[facility] ([facility])[address] [place] [address] Sodium [Moles/Vol] 141 mmol/L Normal 136-145 [facility] Comment on above: Performed By: #### 2 4321-2 ####JANE BOLAÑOS ([id number])[facility] ([facility])[address] [place] [address] Urea nitrogen [Mass/Vol] 27 mg/dL High 6-23 [facility] Comment on above: Performed By: #### 2 4321-2 ####JANE BOLAÑOS ([id number])[facility] ([facility])[address] [place] [address] CBC panel Auto (Bld)on 11-30 Erythrocyte distribution width (RBC) [Ratio] 15.8 % High 11.5 - 14.5 % [facility] Hematocrit (Bld) [Volume fraction] 37.6 % 36.0 - 46.0 % [facility] Hemoglobin (Bld) [Mass/Vol] 11.7 g/dL Low 12.0 - 16.0 g/dL [facility] Interpretation and review of laboratory results Abnormal [facility] MCH (RBC) [Entitic mass] 28.5 pg 26.0 - 34.0 pg [facility] MCHC (RBC) [Mass/Vol] 31.1 g/dL Low 32.0 - 36.0 g/dL [facility] MCV (RBC) [Entitic vol] 92 fL 80 - 100 fL [facility] Nucleated RBC/100 WBC (Bld) [Ratio] 0.0 % [facility] Platelet mean volume (Bld) [Entitic vol] 11.3 fL 7.5 - 11.5 fL [facility] Platelets (Bld) [#/Vol] 151 10*3/uL [facility] RBC (Bld) [#/Vol] 4.10 10*6/uL [facility] WBC (Bld) [#/Vol] 7.9 10*3/uL [facility] Erythrocyte distribution width (RBC) [Ratio] 15.8 % High 11.5-14.5 [facility] Comment on above: Performed By: #### 5 8410-2 ####JANE BOLAÑOS ([id number])[facility] ([facility])[address] [place] [address] Hematocrit (Bld) [Volume fraction] 37.6 % Normal 36.0-46.0 [facility] Comment on above: Performed By: #### 5 8410-2 ####JANE BOLAÑOS ([id number])[facility] ([facility])[address] [place] [address] Hemoglobin (Bld) [Mass/Vol] 11.7 g/dL Low 12.0-16.0 [facility] Comment on above: Performed By: #### 5 8410-2 ####JANE BOLAÑOS ([id number])[facility] ([facility])[address] [place] [address] MCH (RBC) [Entitic mass] 28.5 pg Normal 26.0-34.0 [facility] Comment on above: Performed By: #### 5 8410-2 ####JANE BOLAÑOS ([id number])[facility] ([facility])[address] [place] [address] MCHC (RBC) [Mass/Vol] 31.1 g/dL Low 32.0-36.0 [facility] Comment on above: Performed By: #### 5 8410-2 ####JANE BOLAÑOS ([id number])[facility] ([facility])[address] [place] [address] MCV (RBC) [Entitic vol] 92 fL Normal 80-100 U [facility] Comment on above: Performed By: #### 5 8410-2 ####JANE BOLAÑOS ([id number])[facility] ([facility])[address] [place] [address] Nucleated RBC/100 WBC (Bld) [Ratio] 0.0 /100 WBCs Normal 0.0-0.0 [facility] Comment on above: Performed By: #### 5 8410-2 ####JANE BOLAÑOS ([id number])[facility] ([facility])[address] [place] [address] Platelet mean volume (Bld) [Entitic vol] 11.3 fL Normal 7.5-11.5 [facility] Comment on above: Performed By: #### 5 8410-2 ####JANE BOLAÑOS ([id number])[facility] ([facility])[address] [place] [address] Platelets (Bld) [#/Vol] 151 x10*3/uL Normal 150-450 [facility] Comment on above: Performed By: #### 5 8410-2 ####JANE BOLAÑOS ([id number])[facility] ([facility])[address] [place] [address] RBC (Bld) [#/Vol] 4.10 x10*6/uL Normal 4.00-5.20 [facility] Comment on above: Performed By: #### 5 8410-2 ####JANE BOLAÑOS ([id number])[facility] ([facility])[address] [place] [address] WBC (Bld) [#/Vol] 7.9 x10*3/uL Normal 4.4-11.3 [facility] Comment on above: Performed By: #### 5 8410-2 ####JANE BOLAÑOS ([id number])[facility] ([facility])[address] [place] [address] ECG 12 LeadOrdered By: Erica Flores on 11-30-2022 [facility] Glucose Test strip manual (B ld) [Mass/Vol]on 11-30-2022 Glucose [Mass/Vol] 126 mg/dL High 74 - 99 mg/dL [facility] Interpretation and review of laboratory results Abnormal [facility] Glucose [Mass/Vol] 126 mg/dL High 74-99 [facility] Comment on above: Performed By: #### 2 341-6 ####JANE BOLAÑOS ([id number])[facility] ([facility])[address] [place] [address] Glucose [Mass/Vol] 122 mg/dL High 74 - 99 mg/dL [facility] Interpretation and review of laboratory results Abnormal [facility] Glucose [Mass/Vol] 122 mg/dL High 74-99 [facility] Comment on above: Performed By: #### 2 341-6 #### JANE BOLAÑOS ([id number]) [facility] ([facility]) [address] [place] [address] Basic metabolic 2000 panelon 11-29-2022 Anion gap [Moles/Vol] 11 mmol/L 10 - 2 0 mmol/L [facility] Calcium [Mass/Vol] 9.2 mg/dL 8.6 - 10. 3 mg/dL [facility] Chloride [Moles/Vol] 106 mmol/L 98 - 10 7 mmol/L [facility] CO2 [Moles/Vol] 27 mmol/L 21 - 32 mmol/L [facility] Creatinine [Mass/Vol] 1.57 mg/dL High 0.50 - 1.05 mg/dL [facility] GFR/1.73 sq M.predicted MDRD (S/P/Bld) [Vol rate/Area] 32 mL/min/{1.73_m2} Low - PINF [facility] Comment on above: Calculations of stevo mated GFR are performed using the 2020 CKD-EPI Study Refit equation without the race variable for the IDMS-Traceable creatinine methods. https://jasn.asnjournals.org/content/early/ASN.2020 668583 Glucose [Mass/Vol] 119 mg/dL High 74 - 99 mg/dL [facility] Interpretation and review of laboratory results Abnormal [facility] Potassium [Moles/Vol] 4.3 mmol/L 3.5 - 5.3 mmol/L [facility] Sodium [Moles/Vol] 140 mmol/L 136 - 145 mmol/L [facility] Urea nitrogen [Mass/Vol] 30 mg/dL High 6 - 23 mg/dL [facility] Anion gap [Moles/Vol] 11 mmol/L Normal 10-20 [facility] Comment on above: Performed By: #### 2 4321-2 #### JANE BOLAÑOS ([id number]) [facility] ([facility]) [address] [place] [address] Calcium [Mass/Vol] 9.2 mg/dL Normal 8.6-10.3 [facility] Comment on above: Performed By: #### 2 4321-2 #### JANE BOLAÑOS ([id number]) [facility] ([facility]) [address] [place] [address] Chloride [Moles/Vol] 106 mmol/L Normal 98-107 [facility] Comment on above: Performed By: #### 2 4321-2 #### JANE BOLAÑOS ([id number]) [facility] ([facility]) [address] [place] [address] CO2 [Moles/Vol] 27 mmol/L Normal 21-32 [facility] Comment on above: Performed By: #### 2 4321-2 #### JANE BOLAÑOS ([id number]) [facility] ([facility]) [address] [facility] [place] [address] Creatinine [Mass/Vol] 1.57 mg/dL High 0.50-1.05 [facility] Comment on above: Performed By: #### 2 4321-2 #### JANE BOLAÑOS ([id number]) [facility] ([facility]) [address] [place] [address] GFR/1.73 sq M.predicted MDRD (S/P/Bld) [Vol rate/Area] 32 mL/min/1.73m*2 Low >60 [facility] Comment on above: Result Comment: Calc ulations of estimated GFR are performed using the 2020 CKD-EPI Study Refit equation without the race variable for the IDMS-Traceable creatinine methods. https://jasn.asnjournals.org/content/early//ASN.2020 487037 Performed By: #### 2 4321-2 #### JANE BOLAÑOS ([id number]) [facility] ([facility]) [address] [facility] [address] Glucose [Mass/Vol] 119 mg/dL High 74-99 [facility] Comment on above: Performed By: #### 2 4321-2 #### JANE BOLAÑOS ([id number]) [facility] ([facility]) [address] [facility] [place] [address] Potassium [Moles/Vol] 4.3 mmol/L Normal 3.5-5.3 [facility] Comment on above: Performed By: #### 2 4321-2 #### JANE BOLAÑOS ([id number]) [facility] ([facility]) [address] [facility] [address] Sodium [Moles/Vol] 140 mmol/L Normal 136-145 [facility] Comment on above: Performed By: #### 2 4321-2 #### JANE BOLAÑOS ([id number]) [facility] ([facility]) [address] [place], [place] [address] Urea nitrogen [Mass/Vol] 30 mg/dL High 6-23 [facility] Comment on above: Performed By: #### 2 4321-2 #### JANE BOLAÑOS ([id number]) [facility] ([facility]) [address] [place] [address] Blood type and Indirect anti body screen panel (Bld)on 11-29-2022 ABO group Nom (Bld) O [facility] Blood group antibody screen Ql Negative [facility] D Ag Ql (Bld) Positive [facility] ABO group Nom (Bld) O Normal [facility] Comment on above: Performed By: #### 3 4532-2 #### JANE BOLAÑOS ([id number]) [facility] ([facility]) [address] [place] [address] Blood group antibody screen Ql Negative [facility] Comment on above: Performed By: #### 3 4532-2 #### JANE BOLAÑOS ([id number]) [facility] ([facility]) [address] [place] [address] D Ag Ql (Bld) Positive [facility] Comment on above: Performed By: #### 3 4532-2 #### JANE BOLAÑOS ([id number]) [facility] ([facility]) [address] [place] [address] CBC W Auto Differential pane l (Bld)on 11-29-2022 Basophils (Bld) [#/Vol] 0.04 10*3/uL [facility] Basophils/100 WBC (Bld) 0.5 % 0.0 - 2.0 % [facility] Eosinophils (Bld) [#/Vol] 0.21 10*3/uL [facility] Eosinophils/100 WBC (Bld) 2.6 % 0.0 - 6.0 % [facility] Erythrocyte distribution width (RBC) [Ratio] 15.4 % High 11.5 - 14.5 % [facility] Hematocrit (Bld) [Volume fraction] 39.3 % 36.0 - 46.0 % [facility] Hemoglobin (Bld) [Mass/Vol] 12.4 g/dL 12.0 - 16.0 g/dL [facility] Immature granulocytes (Bld) [#/Vol] 0.03 10*3/uL [facility] Immature granulocytes/100 WBC (Bld) 0.4 % 0.0 - 0.9 % [facility] Comment on above: Immature Granulocyte Count (IG) includes promyelocytes, myelocytes and metamyelocytes but does not include bands. Percent differential counts (%) should be interpreted in the context of the absolute cell counts (cells/UL). Interpretation and review of laboratory results Abnormal [facility] Lymphocytes (Bld) [#/Vol] 2.33 10*3/uL [facility] Lymphocytes/100 WBC (Bld) 29.1 % 13.0 - 44.0 % [facility] MCH (RBC) [Entitic mass] 28.7 pg 26.0 - 34.0 pg [facility] MCHC (RBC) [Mass/Vol] 31.6 g/dL Low 32.0 - 36.0 g/dL [facility] MCV (RBC) [Entitic vol] 91 fL 80 - 100 fL [facility] Monocytes (Bld) [#/Vol] 0.87 10*3/uL High [facility] Monocytes/100 WBC (Bld) 10.9 % 2.0 - 10.0 % [facility] Neutrophils (Bld) [#/Vol] 4.52 10*3/uL [facility] Comment on above: Percent differential counts (%) should be interpreted in the context of the absolute cell counts (cells/uL). Neutrophils/100 WBC (Bld) 56.5 % 40.0 - 80.0 % [facility] Nucleated RBC/100 WBC (Bld) [Ratio] 0.0 % [facility] Platelet mean volume (Bld) [Entitic vol] 12.0 fL High 7.5 - 11.5 fL [facility] Platelets (Bld) [#/Vol] 147 10*3/[facility] (Bld) [#/Vol] 4.32 10*6/uL [facility] WBC (Bld) [#/Vol] 8.0 10*3/uL [facility] Basophils (Bld) [#/Vol] 0.04 x10*3/uL Normal 0.00-0.10 [facility] Comment on above: Performed By: #### 5 7021-8 #### JANE BOLAÑOS ([id number]) [facility] ([facility]) [address] [place] [address] Basophils/100 WBC (Bld) 0.5 % Normal 0.0-2.0 [facility] Comment on above: Performed By: #### 7021-8 #### JANE BOLAÑOS ([id number]) [facility] ([facility]) [address] [place] [address] Eosinophils (Bld) [#/Vol] 0.21 x10*3/uL Normal 0.00-0.40 [facility] Comment on above: Performed By: #### 7021-8 #### JANE BOLAÑOS ([id number]) [facility] ([facility]) [address] [place] [address] Eosinophils/100 WBC (Bld) 2.6 % Normal 0.0-6.0 [facility] Comment on above: Performed By: #### 5 7021-8 #### JANE BOLAÑOS ([id number]) [facility] ([facility]) [address] [place] [address] Erythrocyte distribution width (RBC) [Ratio] 15.4 % High 11.5-14.5 [facility] Comment on above: Performed By: #### 7021-8 #### JANE BOLAÑOS ([id number]) [facility] ([facility]) [address] [place] [address] Hematocrit (Bld) [Volume fraction] 39.3 % Normal 36.0-46.0 [facility] Comment on above: Performed By: #### 7021-8 #### JANE BOLAÑOS ([id number]) [facility] ([facility]) [address] [place] [address] Hemoglobin (Bld) [Mass/Vol] 12.4 g/dL Normal 12.0-16.0 [facility] Comment on above: Performed By: #### 5 7021-8 #### JANE BOLAÑOS ([id number]) [facility] ([facility]) [address] [place] [address] Immature granulocytes (Bld) [#/Vol] 0.03 x10*3/uL Normal 0.00-0.50 [facility] Comment on above: Performed By: #### 5 7021-8 #### JANE BOLAÑOS ([id number]) [facility] ([facility]) [address] [place] [address] Immature granulocytes/100 WBC (Bld) 0.4 % Normal 0.0-0.9 [facility] Comment on above: Result Comment: Jennifer ture Granulocyte Count (IG) includes promyelocytes, myelocytes and metamyelocytes but does not include bands. Percent differential counts (%) should be interpreted in the context of the absolute cell counts (cells/UL). Performed By: #### 5 7021-8 #### JANE BOLAÑOS ([id number]) [facility] ([facility]) [address] [place] [address] Lymphocytes (Bld) [#/Vol] 2.33 x10*3/uL Normal 0.80-3.00 [facility] Comment on above: Performed By: #### 5 7021-8 #### JANE BOLAÑOS ([id number]) [facility] ([facility]) [address] [facility] [place] [address] Lymphocytes/100 WBC (Bld) 29.1 % Normal 13.0-44.0 [facility] Comment on above: Performed By: #### 5 7021-8 #### JANE BOLAÑOS ([id number]) [facility] ([facility]) [address] [place] [address] MCH (RBC) [Entitic mass] 28.7 pg Normal 26.0-34.0 [facility] Comment on above: Performed By: #### 5 7021-8 #### JANE BOLAÑOS ([id number]) [facility] ([facility]) [address] [place] [address] MCHC (RBC) [Mass/Vol] 31.6 g/dL Low 32.0-36.0 [facility] Comment on above: Performed By: #### 5 7021-8 #### JANE BOLAÑOS ([id number]) [facility] ([facility]) [address] [place] [address] MCV (RBC) [Entitic vol] 91 fL Normal 80-100 U [facility] Comment on above: Performed By: #### 5 7021-8 #### JANE BOLAÑOS ([id number]) [facility] ([facility]) [address] [facility] [address] Monocytes (Bld) [#/Vol] 0.87 x10*3/uL High 0.05-0.80 [facility] Comment on above: Performed By: #### 5 7021-8 #### JANE BLOAÑOS ([id number]) [facility] ([facility]) [address] [facility] [address] Monocytes/100 WBC (Bld) 10.9 % Normal 2.0-10.0 U [facility] Comment on above: Performed By: #### 5 7021-8 #### JANE BOLAÑOS ([id number]) [facility] ([facility]) [address] [facility] [address] Neutrophils (Bld) [#/Vol] 4.52 x10*3/uL Normal 1.60-5.50 [facility] Comment on above: Result Comment: Perc ent differential counts (%) should be interpreted in the context of the absolute cell counts (cells/uL). Performed By: #### 5 7021-8 #### JANE BOLAÑOS ([id number]) [facility] ([facility]) [address] [place] [address] Neutrophils/100 WBC (Bld) 56.5 % Normal 40.0-80.0 [facility] Comment on above: Performed By: #### 5 7021-8 #### JANE BOLAÑOS ([id number]) [facility] ([facility]) [address] [place] [address] Nucleated RBC/100 WBC (Bld) [Ratio] 0.0 /100 WBCs Normal 0.0-0.0 [facility] Comment on above: Performed By: #### 5 7021-8 #### JANE BOLAÑOS ([id number]) [facility] ([facility]) [address] [place] [address] Platelet mean volume (Bld) [Entitic vol] 12.0 fL High 7.5-11.5 [facility] Comment on above: Performed By: #### 5 7021-8 #### JANE BOLAÑOS ([id number]) [facility] ([facility]) [address] [place] [address] Platelets (Bld) [#/Vol] 147 x10*3/uL Low 150-450 [facility] Comment on above: Performed By: #### 5 7021-8 #### JANE BOLAÑOS ([id number]) [facility] ([facility]) [address] [place] [address] RBC (Bld) [#/Vol] 4.32 x10*6/uL Normal 4.00-5.20 [facility] Comment on above: Performed By: #### 5 7021-8 #### JANE BOLAÑOS ([id number]) [facility] ([facility]) [address] [place] [address] WBC (Bld) [#/Vol] 8.0 x10*3/uL Normal 4.4-11.3 [facility] Comment on above: Performed By: #### 5 7021-8 #### JANE BOLAÑOS ([id number]) [facility] ([facility]) [address] [place] [address] CT CERVICAL SPINE WO IV CONT [facility] 11-29-2022 CT CERVICAL SPINE WO IV CONTRAST Interpreted By: Forrest Drew, STUDY: CT FACIAL BONES WO IV CONTRAST; CT HEAD W/O CONTRAST TRAUMA PROTOCOL; CT CERVICAL SPINE WO IV CONTRAST; 11/29/2022 4:37 pm INDICATION: Signs/Symptoms:fall, R frontal bone ecchymosis; Signs/Symptoms:Fall, right forehead hematoma, on Eliquis. COMPARISON: None. ACCESSION NUMBER(S): [id number]; [id number]; [id number] ORDERING CLINICIAN: CORBIN BRYAN; FLORENCE BORGES TECHNIQUE: [...] Forrest Drew 11/29/2022 4:54 PM Dictation workstation: [id number] [facility] CT FACIAL BONES WO IV CONTRA SToyou 11-29-2022 CT FACIAL BONES WO IV CONTRAST Interpreted By: Forrest Drew, STUDY: CT FACIAL BONES WO IV CONTRAST; CT HEAD W/O CONTRAST TRAUMA PROTOCOL; CT CERVICAL SPINE WO IV CONTRAST; 11/29/2022 4:37 pm INDICATION: Signs/Symptoms:fall, R frontal bone ecchymosis; Signs/Symptoms:Fall, right forehead hematoma, on Eliquis. COMPARISON: None. ACCESSION NUMBER(S): [id number]; [id number]; [id number] ORDERING CLINICIAN: CORBIN BRYAN; FLORENCE BORGES TECHNIQUE: [...] Forrest Drew 11/29/2022 4:54 PM Dictation workstation: [id number] [facility] CT HEAD W/O CONTRAST TRAUMA PROTOCOLon 11-29-2022 CT HEAD W/O CONTRAST TRAUMA PROTOCOL Interpreted By: Forrest Drew, STUDY: CT FACIAL BONES WO IV CONTRAST; CT HEAD W/O CONTRAST TRAUMA PROTOCOL; CT CERVICAL SPINE WO IV CONTRAST; 11/29/2022 4:37 pm INDICATION: Signs/Symptoms:fall, R frontal bone ecchymosis; Signs/Symptoms:Fall, right forehead hematoma, on Eliquis. COMPARISON: None. ACCESSION NUMBER(S): [id number]; [id number]; [id number] ORDERING CLINICIAN: CORBIN BORGES TECHNIQUE: Noncontrast axial [...] Forrest Drew 11/29/2022 4:54 PM Dictation workstation: [id number] [facility] CT HEAD WO IV CONTRASTon CT HEAD WO IV CONTRAST Interpreted By: Michael Sharp, STUDY: CT HEAD WO IV CONTRAST; 11/29/2022 11:09 pm INDICATION: Stability scan for subdural hemorrhage. COMPARISON: CT brain 11/29/2022 at 4:24 p.m.. ACCESSION NUMBER(S): [id number] ORDERING CLINICIAN: FLORENCE BORGES TECHNIQUE: Axial noncontrast [...] Michael Sharp 11/29/2022 11:18 PM Dictation workstation: [id number] [facility] CT Head WO contraston 2022 Persistent [...] Michael Sharp 11/29/2022 11:18 PM Dictation workstation: [id number] [facility] Interpreted By: Michael Sharp, STUDY: CT HEAD WO IV CONTRAST; 11/29/2022 11:09 pm INDICATION: Stability scan for subdural hemorrhage. COMPARISON: CT brain 11/29/2022 at 4:24 p.m.. ACCESSION NUMBER(S): [id number] ORDERING CLINICIAN: FLORENCE BORGES TECHNIQUE: Axial noncontrast [...] There are calcifications within the cavernous carotids [facility] MD - 11/29/2022 Interpreted By: Michael Sharp, STUDY: CT HEAD WO IV CONTRAST; 11/29/2022 11:09 pm INDICATION: Stability scan for subdural hemorrhage. COMPARISON: CT brain 11/29/2022 at 4:24 p.m.. ACCESSION NUMBER(S): [id number] ORDERING CLINICIAN: FLORENCE BORGES TECHNIQUE: Axial noncontrast [...] Michael Sharp 11/29/2022 11:18 PM Dictation workstation: [id number] [facility] Work Phone: Radiology Study observation (narrative) [facility] Work Phone: CT Head WO contrastOrdered B y: Michael Sharp on 11-29-2022 [facility] Work Phone: Coagulation tissue factor in ducedon 11-29-2022 PT Coag (PPP) [Time] 15.4 s High 9.8-12.8 [facility] Comment on above: Performed By: #### 5 902-2 #### JANE MIYK ([id number]) [facility] ([facility]) [address] [place] [address] ECG 12-LEADon 11-29-2022 ECG 12-LEAD Ventricular Rate 62 Atrial Rate 62 P-R Interval 192 QRS Duration 90 Q-T Interval 465 QTC Calculation(Bazett) 473 P Tougaloo -8 R Tougaloo -19 T Tougaloo 43 QRS Count 10 Q Onset 251 T Offset 484 QTC Fredericia 470 Diagnosis Sinus rhythm Inferior infarct, old Anteroseptal infarct, old See ED provider note for full interpretation and clinical correlation Confirmed by Suly Chambers ([id number]) on 02/14/2023 3:29:09 PM Normal [facility] Glucose Test strip manual (B ld) [Mass/Vol]on 11-29-2022 Glucose [Mass/Vol] 105 mg/dL High 74 - 99 mg/dL [facility] Interpretation and review of laboratory results Abnormal [facility] Glucose [Mass/Vol] 105 mg/dL High 74-99 [facility] Comment on above: Performed By: #### 2 341-6 #### JANE MIKY ([id number]) [facility] ([facility]) [address] [place], [place] [id number] No Panel Informationon 11-29 Acute subdural hematoma [...] Forrest Drew 11/29/2022 4:54 PM Dictation workstation: [id number] Interpreted By: Forrest Drew, STUDY: CT FACIAL BONES WO IV CONTRAST; CT HEAD W/O CONTRAST TRAUMA PROTOCOL; CT CERVICAL SPINE WO IV CONTRAST; 11/29/2022 4:37 pm INDICATION: Signs/Symptoms:fall, R frontal bone ecchymosis; Signs/Symptoms:Fall, right forehead hematoma, on Eliquis. COMPARISON: None. ACCESSION NUMBER(S): [id number]; [id number]; [id number] ORDERING CLINICIAN: CORBIN BRYAN; FLORENCE BORGES TECHNIQUE: [...] are unremarkable. There is no apical pneumothorax. MMODAL Forrest Drew MD - 11/29/2022 Interpreted By: Forrest Drew, STUDY: CT FACIAL BONES WO IV CONTRAST; CT HEAD W/O CONTRAST TRAUMA PROTOCOL; CT CERVICAL SPINE WO IV CONTRAST; 11/29/2022 4:37 pm INDICATION: Signs/Symptoms:fall, R frontal bone ecchymosis; Signs/Symptoms:Fall, right forehead hematoma, on Eliquis. COMPARISON: None. ACCESSION NUMBER(S): [id number]; [id number]; [id number] ORDERING CLINICIAN: CORBIN BORGES TECHNIQUE: Noncontrast axial [...] Forrest Drew 11/29/2022 4:54 PM Dictation workstation: [id number] [facility] Work Phone: Radiology Study observation (narrative) [facility] Work Phone: No Panel InformationOrdered By: Forrest Drew on 11-29-2022 [facility] Work Phone: PT Coag (PPP) [Time]on 11-29 INR Coag (PPP) [Relative time] 1.4 {INR} High 0.9 - 1.1 [facility] Interpretation and review of laboratory results Abnormal [facility] INR Coag (PPP) [Relative time] 1.4 High 0.9-1.1 [facility] Comment on above: Performed By: #### 5 902-2 #### JANE BOLAÑOS ([id number]) [facility] ([facility]) [address] [place] [address] Protime-INRon 11-29-2022 PT Coag (PPP) [Time] 15.4 s High [facility] CBC AND DIFFERENTIALon 10-06 % AUTOMATED IMMATURE GRAN 0.3 % Normal 0.0 - 0.9 [facility] Comment on above: Result Comment: Jennifer ture Granulocyte Count (IG) includes promyelocytes, myelocytes and metamyelocytes but does not include bands. Percent differential counts (%) should be interpreted in the context of the absolute cell counts (cells/L). Performed By: #### I BERNABE #### [facility] [address] [place] [address] Basophils (Bld) [#/Vol] 0.06 10*3/uL Normal 0.00 - 0.1 0 [facility] Comment on above: Performed By: #### I VIELKAT #### [facility] [address] [place] [address] Basophils/100 WBC (Bld) 0.7 % Normal 0.0 - 2.0 [facility] Comment on above: Performed By: #### Jasmina VORAT #### [facility] [address] [place] [address] Eosinophils (Bld) [#/Vol] 0.32 10*3/uL Normal 0.00 - 0.40 [facility] Comment on above: Performed By: #### Jasmina VORAT #### [facility] [address] [place] [address] Eosinophils/100 WBC (Bld) 3.6 % Normal 0.0 - 6.0 [facility] Comment on above: Performed By: #### Jasmina VORAT #### [facility] [address] [place] [address] Erythrocyte distribution width (RBC) [Ratio] 14.7 % High 11.5 - 14.5 [facility] Comment on above: Performed By: #### Jasmina VORAT #### [facility] [address] [place] [address] Hematocrit (Bld) [Volume fraction] 42.0 % Normal 36.0 - 46.0 [facility] Comment on above: Performed By: #### Jasmina VORAT #### [facility] [address] [place] [address] Hemoglobin (Bld) [Mass/Vol] 12.5 g/dL Normal 12.0 - 16.0 [facility] Comment on above: Performed By: #### Jasmina VORAT #### [facility] [address] [place] [address] Lymphocytes (Bld) [#/Vol] 2.52 10*3/uL Normal 0.80 - 3.00 [facility] Comment on above: Performed By: #### Jasmina VORAT #### [facility] [address] [place] [address] Lymphocytes/100 WBC (Bld) 28.0 % Normal 13.0 - 44.0 [facility] Comment on above: Performed By: #### Jasmina KIDD #### [facility] [address] [place] [address] MCHC (RBC) [Mass/Vol] 29.8 g/dL Low 32.0 - 36.0 [facility] Comment on above: Performed By: #### I RONT #### [facility] [address] [place] [address] MCV (RBC) [Entitic vol] 92 fL Normal 80 - 100 [facility] Comment on above: Performed By: #### I RONT #### [facility] [address] [place] [address] Monocytes (Bld) [#/Vol] 0.92 10*3/uL High 0.05 - 0.8 0 [facility] Comment on above: Performed By: #### I VIELKAT #### [facility] [address] [place] [address] Monocytes/100 WBC (Bld) 10.2 % Normal 2.0 - 10.0 [facility] Comment on above: Performed By: #### I RONT #### [facility] [address] [place] [address] Neutrophils (Bld) [#/Vol] 5.16 10*3/uL Normal 1.60 - 5.50 [facility] Comment on above: Performed By: #### I RONT #### [facility] [address] [place] [address] Neutrophils/100 WBC (Bld) 57.2 % Normal 40.0 - 80.0 [facility] Comment on above: Performed By: #### I RONT #### [facility] [address] [place] [address] NUCLEATED RBC 0.0 /100 WBC Normal 0.0-0.0 [facility] Comment on above: Performed By: #### I RONT #### [facility] [address] [place] [address] Platelets (Bld) [#/Vol] 156 10*3/uL Normal 150 - 450 [facility] Comment on above: Performed By: #### I RONT #### [facility] [address] [place] [address] RBC 4.56 x10E12/L Normal 4.00 - 5.20 [facility] Comment on above: Performed By: #### I RONT #### [facility] [address] [place] [address] WBC (Bld) [#/Vol] 9.0 10*3/uL Normal 4.4 - 11.3 [facility] Comment on above: Performed By: #### I RONT #### [facility] [address] [place] [address] FERRITINon 10-06-2022 FERRITIN 48 ug/L Normal 8 - 150 [facility] Comment on above: Performed By: #### F ERRI #### [facility] [address] [place], [place] IRON + TIBCon 10-06-2022 % SATURATION 22 % Low 25 - 45 [facility] Comment on above: Performed By: #### I RONT #### [facility] [address] [place], [place] Iron [Mass/Vol] 78 ug/dL Normal 35 - 150 [facility] Comment on above: Performed By: #### I RONT #### [facility] [address] [place] [address] TIBC 361 ug/dL Normal 240 - 445 [facility] Comment on above: Performed By: #### I RONT #### [facility] [address] [place] [address] FERRITINon 10-05-2022 Lab Specimen Source Normal [facility] Comment on above: Performed By: #### F ERRI #### [facility] [address] [place] [address] Performed By: #### I RONT #### [facility] [address] [place], [place] HIP, UNILATERAL W/PELVIS WHE N PERFORMED 2-3 VIEWSon 10-05-2022 HIP, UNILATERAL W/PELVIS WHEN PERFORMED 2-3 VIEWS Patient Name: INGRID DONALD STUDY: HIP, UNILATERAL W/PELVIS WHEN PERFORMED 2-3 VIEWS; 10/05/2022 12:06 pm INDICATION: pain. COMPARISON: None. ACCESSION NUMBER(S): [id number] ORDERING CLINICIAN: EITAN PRICE FINDINGS: No acute fracture is identified. No dislocation is seen. There are no lytic or blastic lesions. No radiopaque foreign bodies are noted. There are degenerative changes including joint space narrowing, spurring, and subchondral sclerosis. IMPRESSION: No radiographic evidence of an acute fracture. Electronically signed by: TRENT CARROLL MD Normal [facility] SPINE, LUMBOSACRAL; 2 OR 3 V IEWSon 10-05-2022 SPINE, LUMBOSACRAL; 2 OR 3 VIEWS Patient Name: INGRID DONALD STUDY: SPINE, LUMBOSACRAL; 2 OR 3 VIEWS; 10/05/2022 12:06 pm INDICATION: sciatica/hip pain. COMPARISON: None. ACCESSION NUMBER(S): [id number] ORDERING CLINICIAN: EITAN PRICE FINDINGS: No acute [...] Electronically signed by: TRENT CARROLL MD Normal [facility] VITAMIN D 1,25-DIHYDROXYon 0 06-28-2022 VITAMIN D 1,25-DIHYDROXY 22.7 pg/mL Normal 19.9-79.3 [facility] Comment on above: Result Comment: INTE RPRETIVE INFORMATION: Vitamin D, 1,25-Dihydroxy This test is primarily indicated during patient evaluation for hypercalcemia and renal failure. A normal result does not rule out Vitamin D deficiency. The recommended test for diagnosing Vitamin D deficiency is Vitamin D 25-hydroxy. Performed By: [facility] [address] [place] [address] Morning Show Newscast Producer: Farhan Moore MD, PhD Performed By: #### V TDDI #### [facility] [address] [place] [address] CBC AND DIFFERENTIALon 06-27 % AUTOMATED IMMATURE GRAN 0.4 % Normal 0.0 - 0.9 [facility] Comment on above: Result Comment: Jennifer ture Granulocyte Count (IG) includes promyelocytes, myelocytes and metamyelocytes but does not include bands. Percent differential counts (%) should be interpreted in the context of the absolute cell counts (cells/L). Performed By: #### C BCDF #### [facility] [address] [place] [address] Basophils (Bld) [#/Vol] 0.03 10*3/uL Normal 0.00 - 0.1 0 [facility] Comment on above: Performed By: #### C BCDF #### [facility] [address] [place] [address] Basophils/100 WBC (Bld) 0.6 % Normal 0.0 - 2.0 [facility] Comment on above: Performed By: #### C BCDF #### [facility] [address] [place] [address] Eosinophils (Bld) [#/Vol] 0.19 10*3/uL Normal 0.00 - 0.40 [facility] Comment on above: Performed By: #### C BCDF #### [facility] [address] [place] [address] Eosinophils/100 WBC (Bld) 3.5 % Normal 0.0 - 6.0 [facility] Comment on above: Performed By: #### C BCDF #### [facility] [address] [place] [address] Erythrocyte distribution width (RBC) [Ratio] 16.2 % High 11.5 - 14.5 [facility] Comment on above: Performed By: #### C BCDF #### [facility] [address] [place] [address] Hematocrit (Bld) [Volume fraction] 33.3 % Low 36.0 - 46.0 [facility] Comment on above: Performed By: #### C BCDF #### [facility] [address] [place] [address] Hemoglobin (Bld) [Mass/Vol] 9.7 g/dL Low 12.0 - 16.0 [facility] Comment on above: Performed By: #### C BCDF #### [facility] [address] [place] [address] Lymphocytes (Bld) [#/Vol] 1.64 10*3/uL Normal 0.80 - 3.00 [facility] Comment on above: Performed By: #### C BCDF #### [facility] [address] [place] [address] Lymphocytes/100 WBC (Bld) 30.3 % Normal 13.0 - 44.0 [facility] Comment on above: Performed By: #### C BCDF #### [facility] [address] [place] [address] MCHC (RBC) [Mass/Vol] 29.1 g/dL Low 32.0 - 36.0 [facility] Comment on above: Performed By: #### C BCDF #### [facility] [address] [place] [address] MCV (RBC) [Entitic vol] 95 fL Normal 80 - 100 [facility] Comment on above: Performed By: #### C BCDF #### [facility] [address] [place] [address] Monocytes (Bld) [#/Vol] 0.60 10*3/uL Normal 0.05 - 0.8 0 [facility] Comment on above: Performed By: #### C BCDF #### [facility] [address] [place] [address] Monocytes/100 WBC (Bld) 11.1 % Normal 2.0 - 10.0 [facility] Comment on above: Performed By: #### C BCDF #### [facility] [address] [place] [address] Neutrophils (Bld) [#/Vol] 2.94 10*3/uL Normal 1.60 - 5.50 [facility] Comment on above: Performed By: #### C BCDF #### [facility] [address] [place] [address] Neutrophils/100 WBC (Bld) 54.1 % Normal 40.0 - 80.0 [facility] Comment on above: Performed By: #### C BCDF #### [facility] [address] [place] [address] NUCLEATED RBC 0.0 /100 WBC Normal 0.0-0.0 [facility] Comment on above: Performed By: #### C BCDF #### [facility] [address] [place] [address] Platelets (Bld) [#/Vol] 144 10*3/uL Low 150 - 450 [facility] Comment on above: Performed By: #### C BCDF #### [facility] [address] [place] [address] RBC 3.50 x10E12/L Low 4.00 - 5.20 [facility] Comment on above: Performed By: #### C BCDF #### [facility] [address] [place] [address] WBC (Bld) [#/Vol] 5.4 10*3/uL Normal 4.4 - 11.3 [facility] Comment on above: Performed By: #### C BCDF #### [facility] [address] [place] [address] HEMOGLOBIN A1Con 06-27-2022 Glucose [Mass/Vol] 120 mg/dL Normal [facility] Comment on above: Performed By: #### H BA1E #### [facility] [address] [place] [address] HbA1c (Bld) [Mass fraction] 5.8 % Abnormal [facility] Comment on above: Result Comment: Diag nosis of Diabetes-Adults Non-Diabetic: < or = 5.6% Increased risk for developing diabetes: 5.7-6.4% Diagnostic of diabetes: > or = 6.5% . Monitoring of Diabetes Age (y) Therapeutic Goal (%) Adults: >18 <7.0 Pediatrics: 13-18 <7.5 7-12 <8.0 0- 6 7.5-8.5 [employer] [place]. Diabetes Care 33(S1), Feb 2009. Performed By: #### H BA1E #### [facility] [address] [place] [address] TSH WITH REFLEX TO FREE T4 I F ABNORMALon 06-27-2022 TSH Qn 3.32 m[IU]/L Normal 0.44 - 3.98 [facility] Comment on above: Result Comment: TSH testing is performed using different testing methodology at [facility] than at other [facility]. Direct result comparisons should only be made within the same method. Performed By: #### T HYDS #### [facility] [address] [place] [address] VITAMIN B12on 06-27-2022 Cobalamin (Vitamin B12) [Mass/Vol] 831 pg/mL Normal 211 - 911 [facility] Comment on above: Performed By: #### I RONT #### [facility] [address] [place] [address] COMPREHENSIVE PANELon 2022 Albumin [Mass/Vol] 3.5 g/dL Normal 3.4 - 5.0 [facility] Comment on above: Performed By: #### C MP #### [facility] [address] [place] [address] ALP [Catalytic activity/Vol] 49 U/L Normal 33 - 136 [facility] Comment on above: Performed By: #### C MP #### [facility] [address] [place] [address] ALT [Catalytic activity/Vol] 9 U/L Normal 7 - 45 [facility] Comment on above: Result Comment: Carlota ents treated with Sulfasalazine may generate falsely decreased results for ALT. Performed By: #### C MP #### [facility] [address] [place] [address] Anion gap [Moles/Vol] 13 mmol/L Normal 10 - 20 [facility] Comment on above: Performed By: #### C MP #### [facility] [address] [place] [address] AST [Catalytic activity/Vol] 13 U/L Normal 9 - 39 [facility] Comment on above: Performed By: #### C MP #### [facility] [address] [place] [address] Bilirubin [Mass/Vol] 0.7 mg/dL Normal 0.0 - 1.2 [facility] Comment on above: Performed By: #### C MP #### [facility] [address] [place] [address] Calcium [Mass/Vol] 8.9 mg/dL Normal 8.6 - 10.6 [facility] Comment on above: Performed By: #### C MP #### [facility] [address] [place] [address] Chloride [Moles/Vol] 110 mmol/L High 98 - 107 [facility] Comment on above: Performed By: #### C MP #### [facility] [address] [place] [address] Creatinine [Mass/Vol] 1.59 mg/dL High 0.50 - 1.05 [facility] Comment on above: Performed By: #### C MP #### [facility] [address] [place] [address] GFR/1.73 sq M.predicted among non-blacks MDRD (S/P/Bld) [Vol rate/Area] 31 mL/min/{1.73_m2} Abnormal >90 [facility] Comment on above: Result Comment: CALC ULATIONS OF ESTIMATED GFR ARE PERFORMED USING THE 2020 CKD-EPI STUDY REFIT EQUATION WITHOUT THE RACE VARIABLE FOR THE IDMS-TRACEABLE CREATININE METHODS. https://jasn.asnjournals.org/content/early//ASN.2020 143730 Performed By: #### C MP #### [facility] [address] [place] [address] Glucose [Mass/Vol] 94 mg/dL Normal 74 - 99 [facility] Comment on above: Performed By: #### C MP #### [facility] [address] [place] [address] HCO3 (Bld) [Moles/Vol] 25 mmol/L Normal 21 - 32 [facility] Comment on above: Performed By: #### C MP #### [facility] [address] [place] [address] Potassium [Moles/Vol] 4.8 mmol/L Normal 3.5 - 5.3 [facility] Comment on above: Performed By: #### C MP #### [facility] [address] [place] [address] Protein [Mass/Vol] 5.8 g/dL Low 6.4 - 8.2 [facility] Comment on above: Performed By: #### C MP #### [facility] [address] [place] [address] Sodium [Moles/Vol] 143 mmol/L Normal 136 - 145 [facility] Comment on above: Performed By: #### C MP #### [facility] [address] [place] [address] Urea nitrogen [Mass/Vol] 20 mg/dL Normal 6 - 23 [facility] Comment on above: Performed By: #### C MP #### [facility] [address] [place] [address] IRON + TIBCon 06-26-2022 % SATURATION 10 % Low 25 - 45 [facility] Comment on above: Performed By: #### I RONT #### [facility] [address] [place] [address] Iron [Mass/Vol] 38 ug/dL Normal 35 - 150 [facility] Comment on above: Performed By: #### I RONT #### [facility] [address] [place] [address] TIBC 383 ug/dL Normal 240 - 445 [facility] Comment on above: Performed By: #### I RONT #### [facility] [address] [place] [address] Lab Specimen Source Normal [facility] Comment on above: Performed By: #### I RONT #### [facility] [address] [place] [address] Performed By: #### T HYDS #### [facility] [address] [place] [address] Performed By: #### V TDDI #### [facility] [address] [place] [address] Performed By: #### C MP #### [facility] [address] [place] [address] Performed By: #### L IPID #### [facility] [address] [place], [place] Performed By: #### C BCDF #### [facility] [address] [place] [address] LIPID PANEL (CORONARY RISK 2 )on 06-26-2022 Cholesterol [Mass/Vol] 72 mg/dL Normal 0 - 199 [facility] Comment on above: Result Comment: . AGE [...] Performed By: #### L IPID #### [facility] [address] [place] [address] Cholesterol in HDL [Mass/Vol] 35.6 mg/dL Abnormal [facility] Comment on above: Result Comment: . AGE VERY LOW LOW NORMAL HIGH 0-19 Y < 35 < 40 40-45 ---- 20-24 Y ---- < 40 >45 ---- >24 Y ---- < 40 40-60 >60 . Performed By: #### L IPID #### [facility] [address] [place] [address] Cholesterol in LDL [Mass/Vol] 21 mg/dL Normal 0 - 99 [facility] Comment on above: Result Comment: . NEAR BORD AGE DESIRABLE OPTIMAL HIGH HIGH VERY HIGH 0-19 Y 0 - 109 --- 110-129 >/= 130 ---- 20-24 Y 0 - 119 --- 120-159 >/= 160 ---- >24 Y 0 - 99 100-129 130-159 160-189 >/=190 . Performed By: #### L IPID #### [facility] [address] [address] [place] [id number] Cholesterol in VLDL [Mass/Vol] 15 mg/dL Normal 0 - 40 [facility] Comment on above: Performed By: #### L IPID #### [facility] [id number] [place] [address] Cholesterol.total/Mary sterol in HDL [Mass ratio] 2.0 {ratio} Normal [facility] Comment on above: Result Comment: REF VALUES DESIRABLE < 3.4 HIGH RISK > 5.0 Performed By: #### L IPID #### [facility] [id number] [place] [address] Triglyceride [Mass/Vol] 75 mg/dL Normal 0 - 149 [facility] Comment on above: Result Comment: [...] Performed By: #### L IPID #### [facility] [id number] [place] [address] CHEST 2 VIEW PA AND LATon CHEST 2 VIEW PA AND LAT Patient Name: INGRID DONALD STUDY: CHEST 2 VIEW PA AND LAT; 06/02/2022 11:52 am INDICATION: pneumonia one month ago.. COMPARISON: 08/12/2018 ACCESSION NUMBER(S): [id number] ORDERING CLINICIAN: TORI ROBLERO FINDINGS: There is a small left pleural effusion with left basilar airspace disease. There is a small right pleural effusion as well. The cardiac silhouette is mildly enlarged. There is no jb edema. IMPRESSION: Small bilateral pleural effusions. Mild bibasilar atelectasis. Electronically signed by: AYDEN BURKS MD [facility] CBC W Auto Differential pane l [...] and review of laboratory results Abnormal [facility] Lymphocytes (Bld) [#/Vol] 1.8 10*3/uL 1.0 - 4.3 10*3/uL [facility] Lymphocytes/100 WBC (Bld) 18.4 % Low 20.0 - 40.0 % [facility] MCH (RBC) [Entitic mass] 27.3 pg 26.0 - 34.0 pg [facility] MCHC (RBC) [Mass/Vol] 31.8 % Low 32.0 - 36.0 % [facility] MCV (RBC) [Entitic vol] 85.7 fL 80.0 - 98.0 fL [facility] Monocytes (Bld) [#/Vol] 0.8 10*3/uL 0.0 - 0.8 10*3/uL [facility] Monocytes/100 WBC (Bld) 8.3 % 2.0 - 10.0 % [facility] Neutrophils (Bld) [#/Vol] 7.1 10*3/uL High 1.8 - 7.0 10*3/uL [facility] [employer] Neutrophils/100 WBC (Bld) 72.7 % 40.0 - 80.0 % [facility] [employer] Platelet mean volume (Bld) [Entitic vol] 12.2 fL 7.4 - 12.4 fL [facility] [employer] Comment on above: MPV is a calculated measurement using platelet volume ratio Platelets (Bld) [#/Vol] 170 10*3/uL 140 - 440 10*3/uL [facility] [employer] RBC (Bld) [#/Vol] 3.85 10*6/uL 3.8 - 5.20 10*6/uL [facility] WBC (Bld) [#/Vol] 9.8 10*3/uL 3.6 - 10.7 10*3/uL [facility] Office Visit (Internal Medic ine)on 12-14-2021 Follow-up [...] edema better Review of Systems as per venetie ira anxiety seems better Active Problems Problems Abnormal [...] by Problem List Migration; 2012-12-16; Moved to [facility] Dec 27 2012 9:07PM History of [...] Losartan Pot (more content not included)... Normal [employer] Tobacco Screening.on 022 Adult depression screening assessment No [facility] Work Phone: Fall risk assessment a) No falls within the last year [facility] Work Phone: Tobacco use status CP b) No M [facility] Work Phone: Complete Blood Count + Abelino ramires 12-08-2021 Basophils/100 WBC (Bld) 0.8 % 0.0 - 2.0 M [facility] Work Phone: Erythrocyte distribution width (RBC) [Ratio] 19.9 % above high threshold See Below [facility] Work Phone: Comment on above: Reference Range: 11. 5 - 14.5 Hematocrit (Bld) [Volume fraction] 32.7 % below low threshold See Below [facility] Work Phone: Comment on above: Reference Range: 36. 0 - 46.0 Hemoglobin (Bld) [Mass/Vol] 9.5 g/dL below low threshold See Below [facility] Work Phone: Comment on above: Reference Range: 12. 0 - 16.0 Lymphocytes/100 WBC (Bld) 31.3 % See Below [facility] Work Phone: Comment on above: Reference Range: 13. 0 - 44.0 MCHC (RBC) [Mass/Vol] 29.1 g/dL below low threshold See Below [facility] Work Phone: Comment on above: Reference Range: 32. 0 - 36.0 MCV (RBC) [Entitic vol] 86 fL 80 - 100 M [facility] Work Phone: Monocytes/100 WBC (Bld) 9.7 % 2.0 - 10.0 [facility] Work Phone: Neutrophils/100 WBC (Bld) 55.3 % See Below [facility] Work Phone: Comment on above: Reference Range: 40. 0 - 80.0 Platelets (Bld) [#/Vol] 191 10*3/uL 150 - 450 [facility] Work Phone: RBC (Bld) [#/Vol] 3.81 {x10E12/L} below low threshold See Below [facility] Work Phone: Comment on above: Reference Range: 4.0 0 - 5.20 WBC (Bld) [#/Vol] 7.2 10*3/uL 4.4 - 11.3 [facility] Work Phone: Complete Blood Count + Differential 0.06 {x10E9/L} See Below [facility] Work Phone: Comment on above: Reference Range: 0.0 0 - 0.10 Complete Blood Count + Differential 0.19 {x10E9/L} See Below [facility] Work Phone: Comment on above: Reference Range: 0.0 0 - 0.40 Complete Blood Count + Differential 0.70 {x10E9/L} See Below [facility] Work Phone: Comment on above: Reference Range: 0.0 5 - 0.80 Complete Blood Count + Differential 2.26 {x10E9/L} See Below [facility] Work Phone: Comment on above: Reference Range: 0.8 0 - 3.00 Complete Blood Count + Differential 4.00 {x10E9/L} See Below [facility] Work Phone: Comment on above: Reference Range: 1.6 0 - 5.50 Complete Blood Count + Differential 2.6 % 0.0 - 6.0 [facility] Work Phone: Complete Blood Count + Differential 0.3 % 0.0 - 0.9 [facility] Work Phone: Comment on above: Immature Granulocyte Count (IG) includes promyelocytes, myelocytes and metamyelocytes but does not include bands. Percent differential counts (%) should be interpreted in the context of the absolute cell counts (cells/L). Complete Blood Count + Differential 0.0 {/100_WBC} 0.0-0.0 [facility] Work Phone: Ferritin, Serumon 12-08-2021 Ferritin [Mass/Vol] 188 ug/L above high threshold 8 - 150 [facility] Work Phone: Laboratory - Chemistry and C hemistry - challengeon 12-08-2021 Iron [Mass/Vol] 346 ug/dL above high threshold 35 - 150 [facility] Work Phone: Iron binding capacity [Mass/Vol] 403 ug/dL 240 - 445 [facility] Work Phone: No Panel Informationon 12-08 86 % above high threshold 25 - 45 [facility] Work Phone: Office Visit (Internal Medic ine)on 11-09-2021 Follow-up visit Diagnoses/Problems Assessed Anemia (285.9) (D64.9) Anemia, 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) Anxiety (300.00) (F41.9) ASHD (arteriosclerotic heart disease) (414.00) (I25.10) CKD (chronic kidney disease), 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) Orders Anemia Complete Blood Count + Differential; Status:Active; Requested for:09Nov2021; Perform:Lab Services - Lab To Draw (Blood Test); Due:07Feb2022;Ordere d; For:Anemia; Ordered By:Eitan Price; Gastroenterology Referral Evaluation and Treatment hgb 8.1 w/ iron def Status: Hold For - Scheduling Requested for: 09Nov2021 Ordered;For: Anemia; Ordered By: Eitan Price Performed: Due: 07Feb2022 Ferritin, Serum; Status:Active; Requested for:09Nov2021; Perform:Lab Services - Lab To Draw (Blood Test); Due:07Feb2022;Ordere d; For:Anemia; Ordered By:Eitan Price; Iron + TIBC, Serum; Status:Active; Requested for:09Nov2021; Perform:Lab Services - Lab To Draw (Blood Test); Due:07Feb2022;Ordere d; For:Anemia; Ordered By:Eitan Price; CKD (chronic kidney disease), stage II Start: Ferrous Sulfate 325 (65 Fe) MG Oral Tablet; TAKE 1 TABLET BY MOUTH TWICE A DAY WITH MEALS Rx By: Eitan Price; Dispense: 30 Days ; #:60 Tablet; Refill: 1;For: CKD (chronic kidney disease), stage II; MARGARET = N; Sent To: [id number] Patient Discussion/Summary refer dr reynaga anemia iron supplementation f/u 4 weeks w/ cbc, iron studies Chief Complaint Pt is here for 1 month follow up. History of Present Illnessf/u anemia, edema, dm, ashd, htn, hyperlipidemia, pa no abd pain, melena, hc edema better Review of Systems as per venetie ira Active Problems Problems Abnormal serum creatinine level [...] by Problem List Migration; 2012-12-16; Moved to [facility] Dec 27 2012 9:07PM History of [...] by Problem List Migration; 2012-12-16; Moved to [facility] Dec 27 2012 9:07PM History of [...] content not included)... Normal [employer] Tobacco Screening.on 022 Adult depression screening assessment No [facility] Work Phone: Fall risk assessment a) No falls within the last year [facility] Work Phone: Tobacco use status CPHS b) No M [facility] Work Phone: Complete Blood Count + Diffe keyla 11-05-2021 Basophils/100 WBC (Bld) 0.5 % 0.0 - 2.0 M [facility] Work Phone: Erythrocyte distribution width (RBC) [Ratio] 17.2 % above high threshold See Below [facility] Work Phone: Comment on above: Reference Range: 11. 5 - 14.5 Hematocrit (Bld) [Volume fraction] 27.6 % below low threshold See Below [facility] Work Phone: Comment on above: Reference Range: 36. 0 - 46.0 Hemoglobin (Bld) [Mass/Vol] 8.1 g/dL below low threshold See Below [facility] Work Phone: Comment on above: Reference Range: 12. 0 - 16.0 Lymphocytes/100 WBC (Bld) 28.6 % See Below [facility] Work Phone: Comment on above: Reference Range: 13. 0 - 44.0 MCHC (RBC) [Mass/Vol] 29.3 g/dL below low threshold See Below [facility] Work Phone: Comment on above: Reference Range: 32. 0 - 36.0 MCV (RBC) [Entitic vol] 82 fL 80 - 100 M [facility] Work Phone: Monocytes/100 WBC (Bld) 10.3 % 2.0 - 10.0 [facility] Work Phone: Neutrophils/100 WBC (Bld) 58.1 % See Below [facility] Work Phone: Comment on above: Reference Range: 40. 0 - 80.0 Platelets (Bld) [#/Vol] 180 10*3/uL 150 - 450 [facility] Work Phone: RBC (Bld) [#/Vol] 3.35 {x10E12/L} below low threshold See Below [facility] Work Phone: Comment on above: Reference Range: 4.0 0 - 5.20 WBC (Bld) [#/Vol] 6.2 10*3/uL 4.4 - 11.3 [facility] Internal [facility] Work Phone: Complete Blood Count + Differential 0.03 {x10E9/L} See Below [facility] Work Phone: Comment on above: Reference Range: 0.0 0 - 0.10 Complete Blood Count + Differential 0.14 {x10E9/L} See Below [facility] Work Phone: Comment on above: Reference Range: 0.0 0 - 0.40 Complete Blood Count + Differential 0.64 {x10E9/L} See Below [facility] Work Phone: Comment on above: Reference Range: 0.0 5 - 0.80 Complete Blood Count + Differential 1.78 {x10E9/L} See Below [facility] Work Phone: Comment on above: Reference Range: 0.8 0 - 3.00 Complete Blood Count + Differential 3.62 {x10E9/L} See Below [facility] Work Phone: Comment on above: Reference Range: 1.6 0 - 5.50 Complete Blood Count + Differential 2.3 % 0.0 - 6.0 [facility] Work Phone: Complete Blood Count + Differential 0.2 % 0.0 - 0.9 [facility] Work Phone: Comment on above: Immature Granulocyte Count (IG) includes promyelocytes, myelocytes and metamyelocytes but does not include bands. Percent differential counts (%) should be interpreted in the context of the absolute cell counts (cells/L). Complete Blood Count + Differential 0.0 {/100_WBC} 0.0-0.0 [facility] Work Phone: Erythropoietin Assayon 11-05 Erythropoietin (EPO) Qn 51.3 {mIU/mL} above hi gh threshold 2.6-18.5 [facility] Work Phone: Comment on above: [employer] DxI 800 Immunoassay SystemValues obtained with different assay methods or kits cannot be usedinterchangeably. Results cannot be interpreted as absolute evidenceof the presence or absence of malignant disease. Ferritin, Serumon 11-05-2021 Ferritin [Mass/Vol] 8 ug/L 8 - 150 [facility] Work Phone: Folate, Serumon 11-05-2021 Folate [Mass/Vol] 10.6 ng/mL >5.0 [facility] Work Phone: Comment on above: Low <3.4Borderline [...] gap [Moles/Vol] 12 mmol/L 10 - 20 [facility] Work Phone: Calcium [Mass/Vol] 9.2 mg/dL 8.6 - 10.6 [facility] Work Phone: Chloride [Moles/Vol] 106 mmol/L 98 - 107 [facility] Work Phone: CO2 [Moles/Vol] 26 mmol/L 21 - 32 [facility] Work Phone: Creatinine [Mass/Vol] 1.60 mg/dL above high threshold See Below [facility] Work Phone: Comment on above: Reference Range: 0.5 0 - 1.05 Glucose [Mass/Vol] 118 mg/dL above high threshold 74 - 99 [facility] Work Phone: Iron [Mass/Vol] 35 ug/dL 35 - 150 [facility] Work Phone: Iron binding capacity [Mass/Vol] 466 ug/dL above high threshold 240 - 445 [facility] Work Phone: Potassium [Moles/Vol] 4.4 mmol/L 3.5 - 5.3 [facility] Work Phone: Sodium [Moles/Vol] 140 mmol/L 136 - 145 [facility] Work Phone: Urea nitrogen [Mass/Vol] 26 mg/dL above high threshold 6 - 23 [facility] Work Phone: No Panel Informationon 11-05 8 % below low threshold 25 - 45 [facility] Work Phone: 31 {mL/min/1.73m2} Abnormal >90 [facility] Work Phone: Comment on above: CALCULATIONS OF STEVO MATED GFR ARE PERFORMED USING THE 2020 CKD-EPI STUDY REFIT EQUATION WITHOUT THE RACE VARIABLE FOR THE IDMS-TRACEABLE CREATININE METHODS.https://jasn.asnjournals.org/content// ASN.6943198988 PROTEIN ELECTROPHORESIS,SERU 11-05-2021 Albumin [Mass/Vol] 3.3 g/dL below low threshold 3.4 - 5.0 [facility] Work Phone: Protein [Mass/Vol] 6.2 g/dL below low threshold 6.4 - 8.2 [facility] Work Phone: PROTEIN ELECTROPHORESIS,SERUM ABNORMAL [facility] Work Phone: Comment on above: Hypoalbuminemia. PROTEIN ELECTROPHORESIS,SERUM 0.9 g/dL 0.4 - 1.1 [facility] Work Phone: PROTEIN ELECTROPHORESIS,SERUM 0.3 g/dL 0.2 - 0.6 [facility] Work Phone: Path Review SPEon 11-05-2021 Path Review OTTONIEL CANDI [facility] Work Phone: Comment on above: By her/his signature above, the Pathologist listed as making the final interpretation certifies that she/he has personally reviewed this case. 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) Anemia (285.9) (D64.9) ASHD (arteriosclerotic heart disease) (414.00) (I25.10) Orders Anemia, pernicious Complete Blood Count + Differential; Status:Active; Requested for:11Oct2021; Perform:Lab Services - Lab To Draw (Blood Test); Due:09Apr2022;Ordere d; For:Anemia, pernicious; Ordered By:Eitan Price; Erythropoietin Assay; Status:Active; Requested for:11Oct2021; Perform:Lab Services - Lab To Draw (Blood Test); Due:09Apr2022;Ordere d; For:Anemia, pernicious; Ordered By:Eitan Price; Ferritin, Serum; Status:Active; Requested for:11Oct2021; Perform:Lab Services - Lab To Draw (Blood Test); Due:09Apr2022;Ordere d; For:Anemia, pernicious; Ordered By:Eitan Price; Folate, Serum; Status:Active; Requested for:11Oct2021; Perform:Lab Services - Lab To Draw (Blood Test); Due:09Apr2022;Ordere d; For:Anemia, pernicious; Ordered By:Eitan Price; Iron + TIBC, Serum; Status:Active; Requested for:11Oct2021; Perform:Lab Services - Lab To Draw (Blood Test); Due:09Apr2022;Ordere d; For:Anemia, pernicious; Ordered By:Eitan Price; Occult Blood, Stool; Status:Active; Requested for:11Oct2021; Perform:Lab Services - Lab To Draw (Non-Blood Test); Due:09Apr2022;Ordere d; For:Anemia, pernicious; Ordered By:Eitan Price; PROTEIN ELECTROPHORESIS,SERU M; Status:Active - Exact Date; Requested for:11Oct2021; Perform:Lab Services - Lab To Draw (Blood Test);Ordered; For:Anemia, pernicious; Ordered By:Eitan Price; Vitamin B12, Serum; Status:Hold For - Exact Date; Requested for:10/11/21; Perform:Lab Services - Lab To Draw (Blood Test);Ordered; For:Anemia, pernicious; Ordered By:Eitan Price; CKD (chronic kidney disease), stage II Basic Metabolic Panel; Status:Active; Requested for:11Oct2021; Perform:Lab Services - Lab To Draw (Blood Test); Due:09Apr2022;Ordere d; For:CKD (chronic kidney disease), stage II; Ordered [...] failure; MARGARET = N; Record Pyuria Start: Sulfamethoxazole-Tri methoprim 400-80 MG Oral Tablet; TAKE 1 TABLET TWICE DAILY Rx By: Eitan Price; Dispense: 3 Days ; #:6 Tablet; Refill: 0;For: Pyuria; MARGARET = N; Verified Transmission to [facility] #[id number]; Last Updated By: Linda Wolf; 10/06/2021 [...] black stool Review of Systems as per venetie ira Active Problems Problems Abnormal serum creatinine level [...] by Problem List Migration; 2012-12-16; Moved to [facility] Dec 27 2012 9:07PM History of [...] (V13.59) (Z87.39) (more content not included)... Normal [facility] Complete Blood Count + Diffe [facility] 09-30-2021 Basophils/100 WBC (Bld) 0.7 % 0.0 - 2.0 M [facility] Work Phone: Erythrocyte distribution width (RBC) [Ratio] 17.5 % above high threshold See Below [facility] Work Phone: Comment on above: Reference Range: 11. 5 - 14.5 Hematocrit (Bld) [Volume fraction] 31.6 % below low threshold See Below [facility] Work Phone: Comment on above: Reference Range: 36. 0 - 46.0 Hemoglobin (Bld) [Mass/Vol] 9.4 g/dL below low threshold See Below [facility] Work Phone: Comment on above: Reference Range: 12. 0 - 16.0 Lymphocytes/100 WBC (Bld) 32.7 % See Below [facility] Work Phone: Comment on above: Reference Range: 13. 0 - 44.0 MCHC (RBC) [Mass/Vol] 29.7 g/dL below low threshold See Below [facility] Work Phone: Comment on above: Reference Range: 32. 0 - 36.0 MCV (RBC) [Entitic vol] 82 fL 80 - 100 [facility] Work Phone: Monocytes/100 WBC (Bld) 10.0 % 2.0 - 10.0 [facility] Work Phone: Neutrophils/100 WBC (Bld) 53.5 % See Below [facility] Work Phone: Comment on above: Reference Range: 40. 0 - 80.0 Platelets (Bld) [#/Vol] 233 10*3/uL 150 - 450 [facility] Work Phone: RBC (Bld) [#/Vol] 3.87 {x10E12/L} below low threshold See Below [facility] Work Phone: Comment on above: Reference Range: 4.0 0 - 5.20 WBC (Bld) [#/Vol] 7.4 10*3/uL 4.4 - 11.3 [facility] Work Phone: Complete Blood Count + Differential 0.05 {x10E9/L} See Below [facility] Work Phone: Comment on above: Reference Range: 0.0 0 - 0.10 Complete Blood Count + Differential 0.21 {x10E9/L} See Below [facility] Work Phone: Comment on above: Reference Range: 0.0 0 - 0.40 Complete Blood Count + Differential 0.74 {x10E9/L} See Below [facility] Work Phone: Comment on above: Reference Range: 0.0 5 - 0.80 Complete Blood Count + Differential 2.42 {x10E9/L} See Below [facility] Work Phone: Comment on above: Reference Range: 0.8 0 - 3.00 Complete Blood Count + Differential 3.95 {x10E9/L} See Below [facility] Work Phone: Comment on above: Reference Range: 1.6 0 - 5.50 Complete Blood Count + Differential 2.8 % 0.0 - 6.0 [facility] Work Phone: Complete Blood Count + Differential 0.3 % 0.0 - 0.9 [facility] Work Phone: Comment on above: Immature Granulocyte Count (IG) includes promyelocytes, myelocytes and metamyelocytes but does not include bands. Percent differential counts (%) should be interpreted in the context of the absolute cell counts (cells/L). Complete Blood Count + Differential 0.0 {/100_WBC} 0.0-0.0 [facility] Work Phone: Laboratory - Chemistry and C hemistry - challengeon 09-30-2021 Albumin BCP dye [Mass/Vol] 3.8 g/dL 3.4 - 5.0 [facility] Work Phone: ALP [Catalytic activity/Vol] 60 U/L 33 - 136 [facility] Work Phone: ALT With P-5'-P [Catalytic activity/Vol] 7 U/L 7 - 45 [facility] Work Phone: Comment on above: Patients treated wit h Sulfasalazine may generate falsely decreased results for ALT. Anion gap [Moles/Vol] 16 mmol/L 10 - 20 [facility] Work Phone: AST With P-5'-P [Catalytic activity/Vol] 9 U/L 9 - 39 [facility] Work Phone: Bilirubin [Mass/Vol] 0.5 mg/dL 0.0 - 1.2 [facility] Work Phone: Calcium [Mass/Vol] 9.2 mg/dL 8.6 - 10.6 [facility] Work Phone: Chloride [Moles/Vol] 104 mmol/L 98 - 107 [facility] Work Phone: CO2 [Moles/Vol] 24 mmol/L 21 - 32 [facility] Work Phone: Creatinine [Mass/Vol] 2.02 mg/dL above high threshold See Below [facility] Work Phone: Comment on above: Reference Range: 0.5 0 - 1.05 Glucose [Mass/Vol] 136 mg/dL above high threshold 74 - 99 [facility] Work Phone: Natriuretic peptide B (Bld) [Mass/Vol] 226 pg/mL above high threshold 0 - 99 [facility] Work Phone: Comment on above: . <100 pg/mL - Heart failure [id number] pg/mL - Intermediate probability of acute heart. [...] Potassium [Moles/Vol] 4.3 mmol/L 3.5 - 5.3 [facility] Work Phone: Protein [Mass/Vol] 6.4 g/dL 6.4 - 8.2 [facility] Work Phone: Sodium [Moles/Vol] 140 mmol/L 136 - 145 [facility] Work Phone: TSH Qn 1.90 m[IU]/L See Below [facility] Work Phone: Comment on above: Reference Range: 0.4 4 - 3.98 TSH testing is performed using different testing methodology at [facility] than at [facility]. Direct result comparisons should only be made within the same method. Urea nitrogen [Mass/Vol] 38 mg/dL above high threshold 6 - 23 [facility] Work Phone: No Panel Informationon 09-30 24 {mL/min/1.73m2} Abnormal >90 [facility] Work Phone: Comment on above: CALCULATIONS OF STEVO MATED GFR ARE PERFORMED USING THE 2020 CKD-EPI STUDY REFIT EQUATION WITHOUT THE RACE VARIABLE FOR THE IDMS-TRACEABLE CREATININE METHODS.https://jasn.asnjournals.org/content/early// ASN.4574248986 Urinalysison 09-30-2021 Color (U) YELLOW See Below [facility] Work Phone: Comment on above: Reference Range: STR AW,YELLOW Glucose Ql (U) Negative NEGATIVE [facility] Work Phone: Ketones Ql (U) Negative NEGATIVE [facility] Work Phone: Leukocyte esterase Test strip Ql (U) LARGE (3+) Abnormal NEGATIVE [facility] Work Phone: pH (U) 5.0 [pH] 5.0 - 8.0 [facility] Work Phone: Protein (U) [Mass/Vol] Negative NEGATIVE [facility] Work Phone: RBC (U) [#/Vol] Negative NEGATIVE [facility] Work Phone: Specific gravity (U) [Rel density] 1.018 1 See Below [facility] Work Phone: Comment on above: Reference Range: 1.0 05 - 1.035 Urinalysis Negative NEGATIVE [facility] Work Phone: Urinalysis <2.0 0.0 - 1.9 [facility] Work Phone: Urinalysis HAZY CLEAR [facility] Work Phone: Urinalysis, Microscopicon Hyaline casts LM Ql (Urine sed) OCC Abnormal [facility] Work Phone: Urinalysis, Microscopic 1+ [facility] Work Phone: Urinalysis, Microscopic 4+ Abnormal [facility] Work Phone: Urinalysis, Microscopic <1 [facility] Work Phone: Urinalysis, Microscopic 2 {/HPF} [facility] [facility] Work Phone: Urinalysis, Microscopic 7 {/HPF} Abnormal 0-5 M [facility] Work Phone: Urinalysis, Microscopic FEW M [facility] Internal [facility] Work Phone: Urinalysis, Microscopic 154 {/HPF} Abnormal 0-5 M [facility] Work Phone: Office Visit (Internal Medic ine)on 09-22-2021 Follow-up visit Diagnoses/Problems Assessed Lower extremity edema (782.3) (R60.0) Orders Lower extremity edema Brain Natriuretic Peptide BNP; Status:Active; Requested for:29Sep2021; Perform:Lab Services - Lab To Draw (Blood Test); Due:28Dec2021;Ordere d; For:Lower extremity edema; Ordered By:Eitan Price; Complete Blood Count + Differential; Status:Hold For - Exact Date; Requested for:09/29/21; Perform:Lab Services - Lab To Draw (Blood Test); Due:21Dec2021;Ordere d; For:Lower extremity edema; Ordered By:Eitan Price; Comprehensive Metabolic Panel; Status:Hold For - Exact Date; Requested for:09/29/21; Perform:Lab Services - Lab To Draw (Blood Test); Due:21Dec2021;Ordere d; For:Lower extremity edema; Ordered By:Eitan Price; TSH WITH REFLEX TO FREE T4 IF ABNORMAL; Status:Hold For - Exact ; Requested for:09/29/21; Perform:Lab Services - Lab To Draw (Blood Test); Due:21Dec2021;Ordere d; For:Lower extremity edema; Ordered By:Eitan Price; Urinalysis; Status:Active; Requested for:29Sep2021; Perform:Lab Services - Lab To Draw (Non-Blood Test); Due:28Dec2021;Ordere d; For:Lower extremity edema; Ordered By:Eitan Price; PMH: [...] by Problem List Migration; 2012-12-16; Moved to [facility] Dec 27 2012 9:07PM History of [...] by Problem List Migration; 2012-12-16; Moved to [facility] Dec 27 2012 9:07PM History of [...] of diab (more content not included)... Normal [facility] - Chemistry and C hemistry - challengeon 09-14-2021 Anion gap [Moles/Vol] 15 mmol/L 10 - 20 [facility] Work Phone: Calcium [Mass/Vol] 9.3 mg/dL 8.6 - 10.6 [facility] Work Phone: Chloride [Moles/Vol] 107 mmol/L 98 - 107 [facility] Work Phone: CO2 [Moles/Vol] 25 mmol/L 21 - 32 [facility] Work Phone: Creatinine [Mass/Vol] 1.57 mg/dL above high threshold See Below [facility] Work Phone: Comment on above: Reference Range: 0.5 0 - 1.05 Glucose [Mass/Vol] 119 mg/dL above high threshold 74 - 99 [facility] Work Phone: Potassium [Moles/Vol] 5.1 mmol/L 3.5 - 5.3 [facility] Work Phone: Sodium [Moles/Vol] 142 mmol/L 136 - 145 [facility] Work Phone: Urea nitrogen [Mass/Vol] 31 mg/dL above high threshold 6 - 23 [facility] Work Phone: No Panel Informationon 09-14 32 {mL/min/1.73m2} Abnormal >90 [facility] Work Phone: Comment on above: CALCULATIONS OF STEVO MATED GFR ARE PERFORMED USING THE 2020 CKD-EPI STUDY REFIT EQUATION WITHOUT THE RACE VARIABLE FOR THE IDMS-TRACEABLE CREATININE METHODS.https://jasn.asnjournals.org/content// ASN.7191686585 Office Visit (Internal Medic ine)on 09-07-2021 Follow-up [...] to pt Review of Systems as per venetie ira Active Problems Problems Abnormal serum creatinine level [...] of Appendectomy History of Cath Stent Placement 5/19/[address] rondon History of Complete Colonoscopy [...] Delayed Rel (more content not included)... Normal [employer] Medicare Annual Wellness Vis iton 08-02-2021 Medicare [...] Home Maintenance: performs independently. Falls Risk Screening:. PERDITA has not fallen in the last 6 months. Home safety risk factors: none. problems w/ stress not doing that well water damage in one house air conditioner out in [place] crying a lot leg and foot pain r > left no trauma a little swelling f/u dm, hyperlipidemia, dep, htn Review of Systems see venetie ira *Active Problems Abnormal serum creatinine level (790.99) [...] NameInstruction ALPRAZo (more content not included)... [facility] 08-02-2021 Adult depression screening assessment No [facility] Work Phone: Fall risk assessment a) No falls within the last year [facility] Work Phone: Tobacco use status CPHS b) No M [facility] Work Phone: Radiologyon 08-02-2021 US.doppler Upper extremity vein - bilateral Normal [facility] Work Phone: XR Foot 3 Views Please click on the link to view the study images Normal [facility] Work Phone: XR Foot 3 Views Normal [facility] Work Phone: XR Tibia and Fibula - left 2 Views Please click on the link to view the study images Normal [facility] Work Phone: XR Tibia and Fibula - left 2 Views Normal [facility] Work Phone: Hemoglobin A1Con 08-01-2021 Glucose [Mass/Vol] 151 mg/dL [facility] Work Phone: HbA1c (Bld) [Mass fraction] 6.9 % Abnormal [facility] Work Phone: Comment on above: Diagnosis of Diabete s-Adults Non-Diabetic: < or = 5.6% Increased risk for developing diabetes: 5.7-6.4% Diagnostic of diabetes: > or = 6.5%. Monitoring of Diabetes Age (y) Therapeutic Goal (%) Adults: >18 <7.0 Pediatrics: 13-18 <7.5 7-12 <8.0 0- 6 7.5-8.5 [place] [employer]. Diabetes Care 33(S1), Feb 2009. Laboratory - Chemistry and C hemistry - challengeon 08-01-2021 Albumin BCP dye [Mass/Vol] 3.8 g/dL 3.4 - 5.0 [facility] Work Phone: ALP [Catalytic activity/Vol] 63 U/L 33 - 136 [facility] Work Phone: ALT With P-5'-P [Catalytic activity/Vol] 5 U/L below low threshold 7 - 45 [facility] Work Phone: Comment on above: Patients treated wit h Sulfasalazine may generate falsely decreased results for ALT. Anion gap [Moles/Vol] 15 mmol/L 10 - 20 [facility] Work Phone: AST With P-5'-P [Catalytic activity/Vol] 10 U/L 9 - 39 [facility] Work Phone: Bilirubin [Mass/Vol] 0.8 mg/dL 0.0 - 1.2 [facility] Work Phone: Calcium [Mass/Vol] 9.6 mg/dL 8.6 - 10.6 [facility] Work Phone: Chloride [Moles/Vol] 103 mmol/L 98 - 107 [facility] Work Phone: CO2 [Moles/Vol] 27 mmol/L 21 - 32 [facility] Work Phone: Creatinine [Mass/Vol] 1.57 mg/dL above high threshold See Below [facility] Work Phone: Comment on above: Reference Range: 0.5 0 - 1.05 Glucose [Mass/Vol] 128 mg/dL above high threshold 74 - 99 [facility] Work Phone: Potassium [Moles/Vol] 4.2 mmol/L 3.5 - 5.3 [facility] Work Phone: Protein [Mass/Vol] 6.5 g/dL 6.4 - 8.2 [facility] Work Phone: Sodium [Moles/Vol] 141 mmol/L 136 - 145 [facility] Work Phone: Urea nitrogen [Mass/Vol] 19 mg/dL 6 - 23 [facility] Work Phone: Lipid Panelon 08-01-2021 Cholesterol [Mass/Vol] 94 mg/dL 0 - 199 [facility] Work Phone: Comment on above: [...] Cholesterol in HDL [Mass/Vol] 34.1 mg/dL Abnormal [facility] Work Phone: Comment on above: . AGE VERY LOW LOW N ORMAL HIGH 0-19 Y < 35 < 40 40-45 ---- 20-24 Y ---- < 40 >45 ---- >24 Y ---- < 40 40-60 >60. Cholesterol in LDL [Mass/Vol] 33 mg/dL 0 - 99 [facility] Work Phone: Comment on above: . NEAR BORD AGE LUDIN RABLE OPTIMAL HIGH HIGH VERY HIGH 0-19 Y 0 - 109 --- 110-129 >/= 130 ---- 20-24 Y 0 - 119 --- 120-159 >/= 160 ---- >24 Y 0 - 99 100-129 130-159 160-189 >/=190. Cholesterol.total/Mary sterol in HDL [Mass ratio] 2.8 {ratio} [facility] Work Phone: Comment on above: REF VALUESDESIRABLE < 3.4HIGH RISK > 5.0 Triglyceride [Mass/Vol] 133 mg/dL 0 - 149 M [facility] Work Phone: Comment on [...] Lipid Panel 27 mg/dL 0 - 40 [facility] Work Phone: No Panel Informationon 08-01 32 {mL/min/1.73m2} Abnormal >90 [facility] Work Phone: Comment on above: CALCULATIONS OF STEVO MATED GFR ARE PERFORMED USING THE 2020 CKD-EPI STUDY REFIT EQUATION WITHOUT THE RACE VARIABLE FOR THE IDMS-TRACEABLE CREATININE METHODS.https://jasn.asnjournals.org/content/early// ASN.2832345368 Office Visit (Internal Medic ine)on 12-17-2020 Follow-up [...] Review of Systems no new problems see venetie ira Active Problems Problems Abnormal serum creatinine level [...] DIRECTED. Vitals Vital Signs Recorded: 17Dec2020 12:25PM Zuxtbtkxsli14.5 F Heart Rate60 Pzbinngt315 Spuywpaou13 Height5 ft Jxlbbb324 lb BMI Rceykxpxri32.89 kg/m2 BSA Calculated1.84 Physical Exam gen nad, affect wnl heent eomfg, face symmetric alert no psychomotor r/a well dressed good insight Results/Data Reviewed labs, ct Signatures Electronically signed by : Eitan Price MD; Jan 04 2021 5:09PM EST (Author) Normal [facility] Abdomen without Contrasto n 12-14-2020 CT Abdomen WO contrast Normal [facility] Work Phone: Hemoglobin A1Con 11-23-2020 Glucose [Mass/Vol] 160 mg/dL [facility] Internal [facility] Work Phone: HbA1c (Bld) [Mass fraction] 7.2 % Abnormal [facility] Work Phone: Comment on above: Diagnosis of Diabete s-Adults Non-Diabetic: < or = 5.6% Increased risk for developing diabetes: 5.7-6.4% Diagnostic of diabetes: > or = 6.5%. Monitoring of Diabetes Age (y) Therapeutic Goal (%) Adults: >18 <7.0 Pediatrics: 13-18 <7.5 7-12 <8.0 0- 6 7.5-8.5 [place] [employer]. Diabetes Care 33(S1), Feb 2009. Laboratory - Chemistry and C hemistry - challengeon 11-23-2020 Albumin BCP dye [Mass/Vol] 3.6 g/dL 3.4 - 5.0 [facility] Work Phone: Albumin Ql (U) 8.8 mg/L See Below [facility] Work Phone: Comment on above: Reference Range: Not Established Albumin/Creatinine DL <= 20 mg/L (U) [Mass ratio] 7.5 {ug/mg_crt} 0.0 - 30.0 [facility] Work Phone: ALP [Catalytic activity/Vol] 70 U/L 33 - 136 [facility] Work Phone: ALT With P-5'-P [Catalytic activity/Vol] 14 U/L 7 - 45 [facility] Work Phone: Comment on above: Patients treated wit h Sulfasalazine may generate falsely decreased results for ALT. Anion gap [Moles/Vol] 12 mmol/L 10 - 20 [facility] Work Phone: AST With P-5'-P [Catalytic activity/Vol] 12 U/L 9 - 39 [facility] Work Phone: Bilirubin [Mass/Vol] 0.6 mg/dL 0.0 - 1.2 [facility] Work Phone: Calcium [Mass/Vol] 9.2 mg/dL 8.6 - 10.6 [facility] Work Phone: Chloride [Moles/Vol] 108 mmol/L above high threshold 98 - 107 [facility] Work Phone: CO2 [Moles/Vol] 27 mmol/L 21 - 32 [facility] Work Phone: Creatinine (U) [Mass/Vol] 117.0 mg/dL See Below [facility] Work Phone: Comment on above: Reference Range: 20. 0 - 320.0 Creatinine [Mass/Vol] 1.46 mg/dL above high threshold See Below [facility] Work Phone: Comment on above: Reference Range: 0.5 0 - 1.05 Glucose [Mass/Vol] 122 mg/dL above high threshold 74 - 99 [facility] Work Phone: Potassium [Moles/Vol] 5.0 mmol/L 3.5 - 5.3 [facility] Work Phone: Protein [Mass/Vol] 6.1 g/dL below low threshold 6.4 - 8.2 [facility] Work Phone: Sodium [Moles/Vol] 142 mmol/L 136 - 145 [facility] Work Phone: Urea nitrogen [Mass/Vol] 18 mg/dL 6 - 23 [facility] Work Phone: Lipid Panelon 11-23-2020 Cholesterol [Mass/Vol] 101 mg/dL 0 - 199 [facility] Work Phone: Comment on above: [...] dosing. Cholesterol in HDL [Mass/Vol] 40.7 mg/dL [facility] Work Phone: Comment on above: . AGE VERY LOW LOW N ORMAL HIGH 0-19 Y < 35 < 40 40-45 ---- 20-24 Y ---- < 40 >45 ---- >24 Y ---- < 40 40-60 >60. Cholesterol in LDL [Mass/Vol] 31 mg/dL 0 - 99 [facility] Work Phone: Comment on above: . NEAR BORD AGE LUDIN RABLE OPTIMAL HIGH HIGH VERY HIGH 0-19 Y 0 - 109 --- 110-129 >/= 130 ---- 20-24 Y 0 - 119 --- 120-159 >/= 160 ---- >24 Y 0 - 99 100-129 130-159 160-189 >/=190. Cholesterol.total/Mary sterol in HDL [Mass ratio] 2.5 {ratio} [facility] Work Phone: Comment on above: REF VALUESDESIRABLE < 3.4HIGH RISK > 5.0 Triglyceride [Mass/Vol] 145 mg/dL 0 - 149 M [facility] Work Phone: Comment on [...] Lipid Panel 29 mg/dL 0 - 40 [facility] Work Phone: No Panel Informationon 11-23 41 {mL/min/1.73m2} Abnormal >60 [facility] Work Phone: Comment on above: CALCULATIONS OF STEVO MATED GFR ARE PERFORMED USING THE MDRD STUDY EQUATION FOR THE IDMS-TRACEABLE CREATININE METHODS. CLIN CHEM 2007;53:766-72 34 {mL/min/1.73m2} Abnormal >60 [facility] Work Phone: Tobacco Screening.on 021 Fall risk assessment a) No falls within the last year [facility] Work Phone: Tobacco use status CPHS b) No M [facility] Work Phone: Hemoglobin A1Con 06-22-2020 Glucose [Mass/Vol] 146 mg/dL [facility] Work Phone: HbA1c (Bld) [Mass fraction] 6.7 % [facility] Work Phone: Comment on above: Diagnosis of Diabete s-Adults Non-Diabetic: < or = 5.6% Increased risk for developing diabetes: 5.7-6.4% Diagnostic of diabetes: > or = 6.5%. Monitoring of Diabetes Age (y) Therapeutic Goal (%) Adults: >18 <7.0 Pediatrics: 13-18 <7.5 7-12 <8.0 0- 6 7.5-8.5 [place] [employer]. Diabetes Care 33(S1), Feb 2009. Laboratory - Chemistry and C hemistry - challengeon 06-22-2020 Albumin BCP dye [Mass/Vol] 3.7 g/dL 3.4 - 5.0 [facility] Work Phone: ALP [Catalytic activity/Vol] 76 U/L 33 - 136 [facility] Work Phone: ALT With P-5'-P [Catalytic activity/Vol] 9 U/L 7 - 45 [facility] Work Phone: Comment on above: Patients treated wit h Sulfasalazine may generate falsely decreased results for ALT. Anion gap [Moles/Vol] 12 mmol/L 10 - 20 [facility] Work Phone: AST With P-5'-P [Catalytic activity/Vol] 12 U/L 9 - 39 [facility] Work Phone: Bilirubin [Mass/Vol] 0.7 mg/dL 0.0 - 1.2 [facility] Work Phone: Calcium [Mass/Vol] 9.3 mg/dL 8.6 - 10.6 [facility] Work Phone: Chloride [Moles/Vol] 107 mmol/L 98 - 107 [facility] Work Phone: CO2 [Moles/Vol] 26 mmol/L 21 - 32 [facility] Work Phone: Creatinine [Mass/Vol] 1.20 mg/dL above high threshold See Below [facility] Work Phone: Comment on above: Reference Range: 0.5 0 - 1.05 Glucose [Mass/Vol] 124 mg/dL above high threshold 74 - 99 [facility] Work Phone: Potassium [Moles/Vol] 4.7 mmol/L 3.5 - 5.3 [facility] Work Phone: Protein [Mass/Vol] 6.5 g/dL 6.4 - 8.2 [facility] Work Phone: Sodium [Moles/Vol] 140 mmol/L 136 - 145 [facility] Work Phone: TSH Qn 2.23 m[IU]/L See Below [facility] Work Phone: Comment on above: Reference Range: 0.4 4 - 3.98 TSH testing is performed using different testing methodology at [facility] than at other [facility]. Direct result comparisons should only be made within the same method. Urea nitrogen [Mass/Vol] 18 mg/dL 6 - 23 [facility] Work Phone: Lipid Panelon 06-22-2020 Cholesterol [Mass/Vol] 93 mg/dL 0 - 199 [facility] Work Phone: Comment on above: [...] dosing. Cholesterol in HDL [Mass/Vol] 40.3 mg/dL [facility] Work Phone: Comment on above: . AGE VERY LOW LOW N ORMAL HIGH 0-19 Y < 35 < 40 40-45 ---- 20-24 Y ---- < 40 >45 ---- >24 Y ---- < 40 40-60 >60. Cholesterol in LDL [Mass/Vol] 31 mg/dL 0 - 99 [facility] Work Phone: Comment on above: . NEAR BORD AGE LUDIN RABLE OPTIMAL HIGH HIGH VERY HIGH 0-19 Y 0 - 109 --- 110-129 >/= 130 ---- 20-24 Y 0 - 119 --- 120-159 >/= 160 ---- >24 Y 0 - 99 100-129 130-159 160-189 >/=190. Cholesterol.total/Mary sterol in HDL [Mass ratio] 2.3 {ratio} [facility] Work Phone: Comment on above: REF VALUESDESIRABLE < 3.4HIGH RISK > 5.0 Triglyceride [Mass/Vol] 108 mg/dL 0 - 149 M [facility] Work Phone: Comment on [...] Lipid Panel 22 mg/dL 0 - 40 [facility] Work Phone: No Panel Informationon 06-22 52 {mL/min/1.73m2} Abnormal >60 [facility] Work Phone: Comment on above: CALCULATIONS OF STEVO MATED GFR ARE PERFORMED USING THE MDRD STUDY EQUATION FOR THE IDMS-TRACEABLE CREATININE METHODS. CLIN CHEM 2007;53:766-72 43 {mL/min/1.73m2} Abnormal >60 [facility] Work Phone: Otheron 07-29-2019 [facility] Blood Gas Arterialon 019 FIO2 21 % Normal [facility] Comment on above: Performed By: #### A BG #### [facility] [address] [address] Base Excess 1.7 mmol/L Normal -3.0-3.0 [facility] Comment on above: Performed By: #### A BG #### [facility] [address] [address] HCO3 (Bld) [Moles/Vol] 24.2 mmol/L Normal 21.0-28.0 [facility] Comment on above: Performed By: #### A BG #### [facility] [address] [address] O2% Sat Arterial 98.2 % Normal 96.0-100.0 [facility] Comment on above: Performed By: #### A BG #### [facility] [address] [address] PCO2 Arterial 32.6 mm Hg Low 35.0-45.0 [facility] Comment on above: Performed By: #### A BG #### [facility] [address] [address] pH Arterial 7.484 High 7.350-7.450 [facility] Comment on above: Performed By: #### A BG #### [facility] [address] [address] PO2 Arterial 102.0 mm Hg Normal 83.0-108.0 [facility] Comment on above: Performed By: #### A BG #### [facility] [address] [address] Otheron 07-02-2018 XR Chest 2 views Please click on the link to view the study images Normal [facility] Work Phone: Complete Blood Count + Diffe rentialon 06-26-2018 Basophils (Bld) [#/Vol] 0.04 {x10E9/L} See Belo w [facility] Work Phone: Comment on above: Reference Range: 0.0 0 - 0.10 Basophils/100 WBC (Bld) 0.5 % 0.0 - 2.0 M [facility] Internal [facility] Work Phone: Eosinophils (Bld) [#/Vol] 0.17 {x10E9/L} See Below [facility] Work Phone: Comment on above: Reference Range: 0.0 0 - 0.40 Eosinophils/100 WBC (Bld) 2.2 % 0.0 - 6.0 [facility] Work Phone: Erythrocyte distribution width (RBC) [Ratio] 15.1 % above high threshold See Below [facility] Work Phone: Comment on above: Reference Range: 11. 5 - 14.5 Hematocrit (Bld) [Volume fraction] 39.6 % See Below [facility] Work Phone: Comment on above: Reference Range: 36. 0 - 46.0 Hemoglobin (Bld) [Mass/Vol] 12.0 g/dL See Below [facility] Work Phone: Comment on above: Reference Range: 12. 0 - 16.0 Lymphocytes (Bld) [#/Vol] 1.71 {x10E9/L} See Below [facility] Work Phone: Comment on above: Reference Range: 0.8 0 - 3.00 Lymphocytes/100 WBC (Bld) 22.5 % See Below [facility] Work Phone: Comment on above: Reference Range: 13. 0 - 44.0 MCHC (RBC) [Mass/Vol] 30.3 g/dL below low threshold See Below [facility] Work Phone: Comment on above: Reference Range: 32. 0 - 36.0 MCV (RBC) [Entitic vol] 89 fL 80 - 100 M [facility] Work Phone: Monocytes (Bld) [#/Vol] 0.78 {x10E9/L} See Lidao w [facility] Work Phone: Comment on above: Reference Range: 0.0 5 - 0.80 Monocytes/100 WBC (Bld) 10.3 % 2.0 - 10.0 M [facility] Work Phone: Neutrophils (Bld) [#/Vol] 4.87 {x10E9/L} See Below [facility] Work Phone: Comment on above: Reference Range: 1.6 0 - 5.50 Neutrophils/100 WBC (Bld) 64.1 % See Below [facility] Work Phone: Comment on above: Reference Range: 40. 0 - 80.0 Platelets (Bld) [#/Vol] 190 {x10E9/L} 150 - 450 [facility] Work Phone: RBC (Bld) [#/Vol] 4.45 {x10E12/L} See Below [facility] Work Phone: Comment on above: Reference Range: 4.0 0 - 5.20 WBC (Bld) [#/Vol] 7.6 {x10E9/L} 4.4 - 11.3 [facility] Work Phone: WBC (Bld) [#/Vol] 0.0 {/100_WBC} 0.0-0.0 [facility] Work Phone: Complete Blood Count + Differential 0.4 % 0.0 - 0.9 [facility] Work Phone: Comment on above: Percent differential counts (%) should be interpreted in the context of the absolute cell counts (cells/L). Hemoglobin A1Con 06-26-2018 HbA1c (Bld) [Mass fraction] 6.6 % [facility] Work Phone: Comment on above: Diagnosis of Diabete s-Adults Non-Diabetic: < or = 5.6% Increased risk for developing diabetes: 5.7-6.4% Diagnostic of diabetes: > or = 6.5%. Monitoring of Diabetes Age (y) Therapeutic Goal (%) Adults: >18 <7.0 Pediatrics: 13-18 <7.5 7-12 <8.0 0- 6 7.5-8.5 [place] [employer]. Diabetes Care 33(S1), Feb 2009. HbA1c (Bld) [Mass fraction] 143 {MG/DL} [facility] Work Phone: Lipid Panelon 06-26-2018 Cholesterol [Mass/Vol] 98 mg/dL 0 - 199 [facility] Work Phone: Comment on above: [...] Cholesterol in HDL [Mass/Vol] 30.7 mg/dL Abnormal [facility] Work Phone: Comment on above: . AGE VERY LOW LOW N ORMAL HIGH 0-19 Y < 35 < 40 40-45 ---- 20-24 Y ---- < 40 >45 ---- >24 Y ---- < 40 40-60 >60. Cholesterol in LDL [Mass/Vol] 29 mg/dL 0 - 99 [facility] Work Phone: Comment on above: . NEAR BORD AGE LUDIN RABLE OPTIMAL HIGH HIGH VERY HIGH 0-19 Y 0 - 109 --- 110-129 >/= 130 ---- 20-24 Y 0 - 119 --- 120-159 >/= 160 ---- >24 Y 0 - 99 100-129 130-159 160-189 >/=190. Cholesterol.total/Mary sterol in HDL [Mass ratio] 3.2 {ratio} [facility] Work Phone: Comment on above: REF VALUESDESIRABLE < 3.4HIGH RISK > 5.0 Triglyceride [Mass/Vol] 193 mg/dL above hi gh threshold 0 - 149 [facility] Work Phone: Comment on above: . [...] Lipid Panel 39 mg/dL 0 - 40 [facility] Work Phone: Metabolic Panelon 06-26-2018 ALP [Catalytic activity/Vol] 61 U/L 33 - 136 [facility] Work Phone: Anion gap [Moles/Vol] 15 mmol/L 10 - 20 [facility] Work Phone: Bilirubin [Mass/Vol] 0.7 mg/dL 0.0 - 1.2 [facility] Work Phone: Calcium [Mass/Vol] 9.8 mg/dL 8.6 - 10.6 [facility] Work Phone: Chloride [Moles/Vol] 107 mmol/L 98 - 107 [facility] Work Phone: CO2 [Moles/Vol] 25 mmol/L 21 - 32 [facility] Work Phone: Creatinine [Mass/Vol] 1.25 mg/dL above high threshold See Below [facility] Work Phone: Comment on above: Reference Range: 0.5 0 - 1.05 Glucose [Mass/Vol] 128 mg/dL above high threshold 74 - 99 [facility] Work Phone: Potassium [Moles/Vol] 4.9 mmol/L 3.5 - 5.3 [facility] Work Phone: Protein [Mass/Vol] 6.6 g/dL 6.4 - 8.2 [facility] Work Phone: Sodium [Moles/Vol] 142 mmol/L 136 - 145 [facility] Work Phone: Urea nitrogen [Mass/Vol] 22 mg/dL 6 - 23 [facility] Work Phone: Otheron 06-26-2018 Albumin BCP dye [Mass/Vol] 3.6 g/dL 3.4 - 5.0 [facility] Work Phone: ALT With P-5'-P [Catalytic activity/Vol] 9 U/L 7 - 45 [facility] Work Phone: Comment on above: Patients treated wit h Sulfasalazine may generate falsely decreased results for ALT. AST With P-5'-P [Catalytic activity/Vol] 13 U/L 9 - 39 [facility] Work Phone: 50 {mL/min/1.73m2} Abnormal >60 [facility] Work Phone: Comment on above: CALCULATIONS OF STEVO MATED GFR ARE PERFORMED USING THE MDRD STUDY EQUATION FOR THE IDMS-TRACEABLE CREATININE METHODS. CLIN CHEM 2007;[id number] 41 {mL/min/1.73m2} Abnormal >60 [facility] Work Phone: Vitamin B12, Serumon 019 Cobalamin (Vitamin B12) [Mass/Vol] 1299 pg/mL above high threshold 211 - 911 [facility] Work Phone: Office Visiton 09-19-2016 Documentation of current medications (procedure) Done Invalid Interpretation Code [facility] Work Phone: [phone] Fall risk assessment No Invalid Interpretation Code [facility] Work Phone: [phone] Lab Report: CBC-Complete Blo od Cnt No Diffon 08-31-2016 Erythrocytes (RBC) 4.35 10*6/uL Invalid Interpretation Code 4.2-5.4 [facility] Work Phone: [phone] Hematocrit (HCT) 38.0 % Invalid Interpretation Code 37-47 [facility] Work Phone: [phone] Hemoglobin (HGB) 12.4 g/dL Invalid Interpretation Code 12.0-15.0 [facility] Work Phone: [phone] MCH 28.5 pg Invalid Interpretation Code 27.0-32.0 [facility] Work Phone: [phone] MCHC 32.6 G/GL Invalid Interpretation Code 32-36 [facility] Work Phone: [phone] MCV 87.4 fL Invalid Interpretation Code 81-99 [facility] Work Phone: [phone] Platelets 167 10*3/mm3 Invalid Interpretation Code 150-450 [facility] Work Phone: [phone] PMV by Baylee 12.3 fL High 6.2-12.0 [facility] Work Phone: [phone] RDW-CA 14.5 % Invalid Interpretation Code 11.6-14.6 [facility] Work Phone: [phone] red blood cell distribution width, size density 46.0 fL High 35.1-43.9 [facility] Work Phone: [phone] WBC (Leukocytes) 6.5 10*3/uL Invalid Interpretation Code 4.4-11.0 [facility] Work Phone: [phone] Lab Report: Lipid Profileon 08-31-2016 Cholesterol 95 mg/dL Invalid Interpretation Code 200 [facility] Work Phone: [phone] HDL Cholesterol 38 mg/dL Low [facility] Work Phone: [phone] LDL Cholesterol 33 mg/dL Invalid Interpretation Code 0-130 [facility] Work Phone: [phone] Triglyceride 119 mg/dL Invalid Interpretation Code [facility] Work Phone: [phone] very low density lipoproteins 24 mg/dL Invalid Interpretation Code 5-40 [facility] Work Phone: [phone] Lab Report: Liver Profileon 08-31-2016 Alanine aminotransferase (ALT) 18 U/L Invalid Interpretation Code 12-78 [facility] Work Phone: [phone] Albumin 3.1 g/dL Low 3.4-5.0 [facility] Work Phone: [phone] Alkaline phosphatase (ALP) 75 U/L Invalid Interpretation Code 45-117 [facility] Work Phone: [phone] Aspartate aminotransferase (AST) 13 U/L Low 15-37 [facility] [employer] Work Phone: [phone] Bilirubin (direct) 0.16 mg/dL Invalid Interpretation Code 0.00-0.30 [facility] Work Phone: [phone] Bilirubin (total) 0.50 mg/dL Invalid Interpretation Code 0.20-1.00 [facility] Work Phone: [phone] Globulin 3.8 g/dL High 2.3-3.5 [facility] Work Phone: [phone] Protein 6.9 g/dL Invalid Interpretation Code 6.4-8.2 [facility] Work Phone: [phone] Office Visiton 07-11-2016 Dietary management education, guidance, and counseling (procedure) yes Invalid Interpretation Code [facility] Work Phone: [phone] Documentation of current medications (procedure) Done Invalid Interpretation Code [facility] Work Phone: [phone] Tobacco use CPHS Never smoker Invalid Interpretation Code [facility] Work Phone: [phone] Clinical Lists Update: 06-29-2016 Anion gap 7 mmol/L Invalid Interpretation Code [facility] Work Phone: [phone] Anion gap [Moles/Vol] 7 mmol/L [facility] Work Phone: [phone] BUN/Creatinine Ratio 15.3 mg/mg Invalid Interpretation Code [facility] Work Phone: [phone] Calcium 8.6 mg/dL Invalid Interpretation Code [facility] Work Phone: [phone] Chloride 105 mmol/L Invalid Interpretation Code [facility] Work Phone: [phone] CO2 29 mmol/L Invalid Interpretation Code [facility] Work Phone: [phone] CO2 (BldV) [Partial pressure] 29 mmol/L [facility] Work Phone: [phone] Creatinine 0.92 mg/dL Invalid Interpretation Code [facility] Work Phone: [phone] Glucose 138 mg/dL Invalid Interpretation Code [facility] Work Phone: [phone] Glucose [Mass/Vol] 138 mg/dL [facility] Work Phone: [phone] Potassium 4.1 mmol/L Invalid Interpretation Code [facility] Work Phone: [phone] Sodium 141 mmol/L Invalid Interpretation Code [facility] Work Phone: [phone] Urea nitrogen 14 mg/dL Invalid Interpretation Code [facility] Work Phone: [phone] Clinical Lists Update: 06-28-2016 Hematocrit (Bld) [Volume fraction] 28 % Low [facility] Work Phone: [phone] Hematocrit (HCT) 28 % Low [facility] Work Phone: [phone] Hemoglobin (HGB) 9.1 g/dL Low [facility] Work Phone: [phone] Platelets 143 10*3/mm3 Low [facility] Work Phone: [phone] Platelets (Bld) [#/Vol] 143 10*3/mm3 Low [facility] Work Phone: [phone] Clinical Lists Update: 06-23-2016 Cholesterol 94 mg/dL Invalid Interpretation Code [facility] Work Phone: HDL Cholesterol 34 mg/dL Invalid Interpretation Code [facility] Work Phone: LDL Cholesterol 30 mg/dL Invalid Interpretation Code [facility] Work Phone: Left ventricular Ejection fraction 75 % Invalid Interpretation Code [facility] Work Phone: Triglyceride 151 mg/dL Invalid Interpretation Code [facility] Work Phone: Otheron 07-14-2010 CONVERTED CLINICAL HISTORY OPERATIVE PROCEDURE: Colon CLINICAL INFORMATION: H/O colon ca, polyps, inflamm of small bowel [facility] CONVERTED ELECTRONIC SIGNATURE GHADA HOSKINS M.D., PATHOLOGIST (Electronic signature on file) Final Signed Out: 07/14/2010 16:44 [facility] CONVERTED FINAL DIAGNOSIS FINAL DIAGNOSIS: A) SIGMOID [...] (B) COLON BX, TRANS. (C) COLON BIOPSY [facility] CONVERTED GROSS DESCRIPTION GROSS DESCRIPTION: Sigmoid polyp [...] totally submitted in cassette C x 3. SMS:[facility] MICROSCOPIC DESCRIPTION: Slides reviewed. AP/lrs [facility] CONVERTED ORDERING PROVIDER Ordering Provider: PHILL RODARTE [facility] Otheron 11-12-2008 CONVERTED CLINICAL HISTORY OPERATIVE PROCEDURE: Colonoscopy CLINICAL INFORMATION: H/O ca colon, inflamm in small bowel at anastomosis [facility] CONVERTED ELECTRONIC SIGNATURE GHADA HOSKINS M.D., PATHOLOGIST (Electronic signature on file) Final Signed Out: 11/12/2008 13:39 [facility] CONVERTED FINAL DIAGNOSIS FINAL DIAGNOSIS: SMALL BOWEL AT ANASTOMOSIS, BIOPSIES - FOCAL ACTIVE INFLAMMATION. NEGATIVE FOR MALIGNANCY. SEE COMMENT. COMMENT: The biopsies display active inflammation of surface epithelium and also glandular epithelium. The pattern of active inflammation is nonspecific. There is no evidence of necrosis. The focal mild changes are not accompanied by atypical features. SPECIMEN: COLON BIOPSY [facility] CONVERTED GROSS DESCRIPTION GROSS DESCRIPTION: Anastomosis bxs The specimen is received in a container labeled anastomosis biopsy. Received are portions of soft red-thomas tissue measuring 0.3 cm in aggregate diameter. The specimen is totally submitted in a single cassette x3. EDS/SMS/gpl MICROSCOPIC DESCRIPTION: Slides reviewed. AP/lrs [facility] CONVERTED ORDERING PROVIDER Ordering Provider: PHILL RODARTE [facility]acon 10-24-2007 Cholesterol [Mass/Vol] GALLBLADDER, RESECTION - CHRONIC CHOLECYSTITIS. [facility] Otheron 10-24-2007 CONVERTED ORDERING PROVIDER Ordering Provider: MCKAY WANG [facility] Thyroidon 10-24-2007 TSH Kalyan BUTLER M.D., PATHOLOGIST (Electronic signature on file) Final Signed Out: 10/24/2007 14:31 [facility] Vital Signs Date Time Vital Sign Value Performing Clinician Facility 10-07-2024 11:30-0400 Body height 149.9 cm Eitan Price MD Work Phone: [facility] 10-07-2024 11:30-0400 Body mass index (BMI) [Ratio] 38.17 kg/m2 Eitan Price MD Work Phone: [facility] 10-07-2024 11:30-0400 Body weight 85.73 kg Eitan Price MD Work Phone: [facility] 10-07-2024 11:30-0400 Diastolic blood pressure 74 mm[Hg] Eitan Price MD Work Phone: [facility] 10-07-2024 11:30-0400 Heart rate 73 /min Eitan Price MD Work Phone: [facility] 10-07-2024 11:30-0400 SaO2% (BldA) [Mass fraction] 99 % Eitan Price MD Work Phone: [facility] 10-07-2024 11:30-0400 Systolic blood pressure 124 mm[Hg] Eitan Price MD Work Phone: [facility] 09-29-2024 08:58-0400 Body height 149.[address] Eitan Price MD Work Phone: [facility] 09-29-2024 08:58-0400 Body mass index (BMI) [Ratio] 37.5 kg/m2 Dr. Eitan Price MD Work Phone: [facility] 09-29-2024 08:58-0400 Body weight 84.[address] Eitan Price MD Work Phone: [facility] 09-29-2024 08:58-0400 Diastolic blood pressure 78 mm[Hg] Dr. Eitan Price MD Work Phone: [facility] 09-29-2024 08:58-0400 Heart rate 90 /min Dr. Eitan Price MD Work Phone: [facility] 09-29-2024 08:58-0400 Respiratory rate 20 /min Dr. Eitan Price MD Work Phone: [facility] 09-29-2024 08:58-0400 SaO2% (BldA) [Mass fraction] 97 % Dr. Eitan Price MD Work Phone: [facility] 09-29-2024 08:58-0400 Systolic blood pressure 139 mm[Hg] Dr. Eitan Price MD Work Phone: [facility] 09-04-2024 14:34-0400 Body height 149.9 cm Eitan Price MD Work Phone: [facility] 09-04-2024 14:34-0400 Body mass index (BMI) [Ratio] 37.37 kg/m2 Eitan Price MD Work Phone: [facility] 09-04-2024 14:34-0400 Body weight 83.92 kg Eitan Price MD Work Phone: [facility] 09-04-2024 14:34-0400 Diastolic blood pressure 72 mm[Hg] Eitan Price MD Work Phone: [facility] 09-04-2024 14:34-0400 Heart rate 75 /min Eitan Price MD Work Phone: [facility] 09-04-2024 14:34-0400 SaO2% (BldA) [Mass fraction] 100 % Eitan Price MD Work Phone: [facility] 09-04-2024 14:34-0400 Systolic blood pressure 132 mm[Hg] Eitan Price MD Work Phone: [facility] 08-25-2024 13:09-0400 Body temperature 97.2 [degF] [facility] Work Phone: [facility] 08-25-2024 13:09-0400 Diastolic blood pressure 78 mm[Hg] [facility] Work Phone: [facility] 08-25-2024 13:09-0400 Heart rate 70 /min [facility] Work Phone: [facility] 08-25-2024 13:09-0400 Respiratory rate 16 /min [facility] Work Phone: [facility] 08-25-2024 13:09-0400 SaO2% (BldA) [Mass fraction] 97 % [facility] Work Phone: [facility] 08-25-2024 13:09-0400 Systolic blood pressure 162 mm[Hg] [facility] Work Phone: [facility] 08-20-2024 15:08-0400 Diastolic blood pressure 80 mm[Hg] Eitan Price MD Work Phone: [facility] 08-20-2024 15:08-0400 Heart rate 42 /min Eitan Price MD Work Phone: [facility] 08-20-2024 15:08-0400 SaO2% (BldA) [Mass fraction] 100 % Eitan Price MD Work Phone: [facility] 08-20-2024 15:08-0400 Systolic blood pressure 130 mm[Hg] Eitan Price MD Work Phone: [facility] 08-19-2024 08:22-0400 Body height 149.9 cm Mark Vazquez MD Work Phone: [facility] 08-19-2024 08:22-0400 Body mass index (BMI) [Ratio] 36.96 kg/m2 Mark Vazquez MD Work Phone: [facility] 08-19-2024 08:22-0400 Body weight 83.01 kg Mark Vazquez MD Work Phone: [facility] 08-19-2024 08:22-0400 Respiratory rate 18 /min Mark Vazquez MD Work Phone: [facility] 08-18-2024 16:05-0400 Body temperature 97.7 [degF] Dr. Eitan Price MD Work Phone: [facility] 08-18-2024 16:05-0400 Diastolic blood pressure 57 mm[Hg] Dr. Eitan Price MD Work Phone: [facility] 08-18-2024 16:05-0400 Heart rate 88 /min Dr. Eitan Price MD Work Phone: [facility] 08-18-2024 16:05-0400 Respiratory rate 16 /min Dr. Eitan Price MD Work Phone: [facility] 08-18-2024 16:05-0400 SaO2% (BldA) [Mass fraction] 98 % Dr. Eitan Price MD Work Phone: [facility] 08-18-2024 16:05-0400 Systolic blood pressure 150 mm[Hg] Dr. Eitan Price MD Work Phone: [facility] 08-18-2024 14:28-0400 Body height 149.[address] Eitan Price MD Work Phone: [facility] 08-18-2024 14:28-0400 Body mass index (BMI) [Ratio] 38 kg/m2 Dr. Eitan Price MD Work Phone: [facility] 08-18-2024 14:28-0400 Body weight 85.[address] Eitan Price MD Work Phone: [facility] 08-18-2024 00:37-0400 Body temperature 97.4 [degF] Dr. Eitan Price MD Work Phone: [facility] 08-18-2024 00:37-0400 Diastolic blood pressure 74 mm[Hg] Dr. Eitan Price MD Work Phone: [facility] 08-18-2024 00:37-0400 Heart rate 84 /min Dr. Eitan Price MD Work Phone: [facility] 08-18-2024 00:37-0400 Respiratory rate 14 /min Dr. Eitan Price MD Work Phone: [facility] 08-18-2024 00:37-0400 SaO2% (BldA) [Mass fraction] 100 % Dr. Eitan Price MD Work Phone: [facility] 08-18-2024 00:37-0400 Systolic blood pressure 137 mm[Hg] Dr. Eitan Price MD Work Phone: [facility] 08-17-2024 19:46-0400 Body height 149.[address] Eitan Price MD Work Phone: [facility] 08-17-2024 19:46-0400 Body mass index (BMI) [Ratio] 39.4 kg/m2 Dr. Eitan Price MD Work Phone: [facility] 08-17-2024 19:46-0400 Body weight 88.[address] Eitan Price MD Work Phone: [facility] 11-28-2023 09:59-0400 Body height 149.9 cm Eitan Price MD Work Phone: [facility] 11-28-2023 09:59-0400 Body mass index (BMI) [Ratio] 37.16 kg/m2 Eitan Price MD Work Phone: [facility] 11-28-2023 09:59-0400 Body weight 83.46 kg Eitan Price MD Work Phone: [facility] 11-28-2023 09:59-0400 Diastolic blood pressure 70 mm[Hg] Eitan Price MD Work Phone: [facility] 11-28-2023 09:59-0400 Heart rate 55 /min Eitan Price MD Work Phone: [facility] 11-28-2023 09:59-0400 SaO2% (BldA) [Mass fraction] 98 % Eitan Price MD Work Phone: [facility] 11-28-2023 09:59-0400 Systolic blood pressure 120 mm[Hg] Eitan Price MD Work Phone: [facility] 11-13-2023 09:18-0400 Body height 149.9 cm Mark Vazquez MD Work Phone: [facility] 11-13-2023 09:18-0400 Body mass index (BMI) [Ratio] 36.96 kg/m2 Mark Vazquez MD Work Phone: [facility] 11-13-2023 09:18-0400 Body weight 83.01 kg Mark Vazquez MD Work Phone: [facility] 11-13-2023 09:18-0400 Respiratory rate 16 /min Mark Vazquez MD Work Phone: [facility] 10-03-2023 15:01-0400 Body height 149.9 cm Eitan Price MD Work Phone: [facility] 10-03-2023 15:01-0400 Body mass index (BMI) [Ratio] 36.96 kg/m2 Eitan Price MD Work Phone: [facility] 10-03-2023 15:01-0400 Body weight 83.01 kg Eitan Price MD Work Phone: [facility] 10-03-2023 15:01-0400 Diastolic blood pressure 72 mm[Hg] Eitan Price MD Work Phone: [facility] 10-03-2023 15:01-0400 Heart rate 50 /min Eitan Price MD Work Phone: [facility] 10-03-2023 15:01-0400 SaO2% (BldA) [Mass fraction] 96 % Eitan Price MD Work Phone: [facility] 10-03-2023 15:01-0400 Systolic blood pressure 122 mm[Hg] Eitan Price MD Work Phone: [facility] 06-25-2023 14:04-0400 Body mass index (BMI) [Ratio] 36.56 kg/m2 Eitan Price MD Work Phone: [facility] 06-25-2023 14:04-0400 Body weight 82.1 kg Eitan Price MD Work Phone: [facility] 06-25-2023 14:04-0400 Diastolic blood pressure 66 mm[Hg] Eitan Price MD Work Phone: [facility] 06-25-2023 14:04-0400 Heart rate 49 /min Eitan Price MD Work Phone: [facility] 06-25-2023 14:04-0400 SaO2% (BldA) [Mass fraction] 100 % Eitan Price MD Work Phone: [facility] 06-25-2023 14:04-0400 Systolic blood pressure 116 mm[Hg] Eitan Price MD Work Phone: [facility] 12-26-2022 10:02-0500 Body height 149.9 cm Erica CASILLAS Work Phone: [facility] 12-26-2022 10:02-0500 Body mass index (BMI) [Ratio] 36.15 kg/m2 Erica CASILLAS Work Phone: [facility] 12-26-2022 10:02-0500 Body temperature 98.01 [degF] Erica CASILLAS Work Phone: [facility] 12-26-2022 10:02-0500 Body weight 81.19 kg Erica Thompson APRN-LOS Work Phone: [facility] 12-26-2022 10:02-0500 Diastolic blood pressure 69 mm[Hg] Erica Thompson APRN-LOS Work Phone: [facility] 12-26-2022 10:02-0500 Heart rate 68 /min Erica CASILLAS Work Phone: [facility] 12-26-2022 10:02-0500 Respiratory rate 18 /min Erica Thompson APRN-LOS Work Phone: [facility] 12-26-2022 10:02-0500 Systolic blood pressure 137 mm[Hg] Erica Thompson APRN-LOS Work Phone: [facility] 12-13-2022 14:28-0500 Body height 149.9 cm Eitan Price MD Work Phone: [facility] 12-13-2022 14:28-0500 Body mass index (BMI) [Ratio] 35.95 kg/m2 Eitan Price MD Work Phone: [facility] 12-13-2022 14:28-0500 Body temperature 97.11 [degF] Eitan Price MD Work Phone: [facility] 12-13-2022 14:28-0500 Body weight 80.74 kg Eitan Price MD Work Phone: [facility] 12-13-2022 14:28-0500 Diastolic blood pressure 70 mm[Hg] Eitan Price MD Work Phone: [facility] 12-13-2022 14:28-0500 Heart rate 70 /min Eitan Price MD Work Phone: [facility] 12-13-2022 14:28-0500 SaO2% (BldA) [Mass fraction] 97 % Eitan Price MD Work Phone: [facility] 12-13-2022 14:28-0500 Systolic blood pressure 122 mm[Hg] Eitan Price MD Work Phone: [facility] 12-06-2022 14:34-0400 Body height 149.[address] Eitan Price Work Phone: [facility] 12-06-2022 14:34-0400 Body mass index (BMI) [Ratio] 35.9 kg/m2 Dr. Eitan Price Work Phone: [facility] 12-06-2022 14:34-0400 Body weight 80.[address] Eitan Price Work Phone: [facility] 12-06-2022 14:34-0400 Diastolic blood pressure 79 mm[Hg] Dr. Eitan Price Work Phone: [facility] 12-06-2022 14:34-0400 Heart rate 69 /min Dr. Eitan Price Work Phone: [facility] 12-06-2022 14:34-0400 Respiratory rate 16 /min Dr. Eitan Price Work Phone: [facility] 12-06-2022 14:34-0400 Systolic blood pressure 154 mm[Hg] Dr. Eitan Price Work Phone: [facility] 12-02-2022 10:00-0400 Diastolic blood pressure 59 mm[Hg] Corbin Bryan MD Work Phone: [facility] 12-02-2022 10:00-0400 Heart rate 72 /min Corbin Bryan MD Work Phone: [facility] 12-02-2022 10:00-0400 Respiratory rate 18 /min Corbin Bryan MD Work Phone: [facility] 12-02-2022 10:00-0400 SaO2% (BldA) [Mass fraction] 98 % Corbin Bryan MD Work Phone: [facility] 12-02-2022 10:00-0400 Systolic blood pressure 121 mm[Hg] Corbin Bryan MD Work Phone: [facility] 12-02-2022 08:00-0400 Body temperature 97.7 [degF] Corbin Bryan MD Work Phone: [facility] 11-30-2022 18:56-0400 Body height 149.9 cm Corbin Bryan MD Work Phone: [facility] 11-30-2022 18:56-0400 Body mass index (BMI) [Ratio] 37.38 kg/m2 Corbin Bryan MD Work Phone: [facility] 11-30-2022 18:56-0400 Body weight 84 kg Corbin Bryan MD Work Phone: [facility] 06-02-2022 10:30-0400 Body height 152.4 cm Tori Roblero [employer] TECHNICIAN-PHYSICAL CHEMIST Work Phone: [facility] 06-02-2022 10:30-0400 Body mass index (BMI) [Ratio] 35.9 kg/m2 Tori Roblero [employer] TECHNICIAN-PHYSICAL CHEMIST Work Phone: [facility] 06-02-2022 10:30-0400 Body temperature 98.01 [degF] Tori Roblero [employer] TECHNICIAN-PHYSICAL CHEMIST Work Phone: [facility] 06-02-2022 10:30-0400 Body weight 83.37 kg Tori Roblero [employer] TECHNICIAN-PHYSICAL CHEMIST Work Phone: [facility] 06-02-2022 10:30-0400 Diastolic blood pressure 74 mm[Hg] Tori Roblero [employer] TECHNICIAN-PHYSICAL CHEMIST Work Phone: [facility] 06-02-2022 10:30-0400 Heart rate 77 /min Tori Roblero [employer] TECHNICIAN-PHYSICAL CHEMIST Work Phone: [facility] 06-02-2022 10:30-0400 SaO2% (BldA) [Mass fraction] 97 % Tori Roblero [employer] TECHNICIAN-PHYSICAL CHEMIST Work Phone: [facility] 06-02-2022 10:30-0400 Systolic blood pressure 130 mm[Hg] Tori Roblero [employer] TECHNICIAN-PHYSICAL CHEMIST Work Phone: [facility] 12-14-2021 08:37-0500 Body temperature 97.5 [degF] Eitan Ayleen Mabee Work Phone[facility] [employer] [facility] Work Phone: 12-14-2021 08:37-0500 Diastolic blood pressure 78 mm[Hg] Eitan Ayleen Mabee Work Phone: [employer] Work Phone: 12-14-2021 08:37-0500 Heart rate 63 /min Eitan Ayleen Mabee Work Phone: [employer] [facility] Work Phone: 12-14-2021 08:37-0500 SaO2% (BldA) [Mass fraction] 98 % Eitan W Mabee Work Phone: [employer] [facility] Work Phone: 12-14-2021 08:37-0500 Systolic blood pressure 130 mm[Hg] Eitan W Mabee Work Phone: [employer] [facility] Work Phone: 12-14-2021 08:30-0500 Body height 152.4 cm Eitan Price Work Phone: [facility] Work Phone: 12-14-2021 08:30-0500 Body mass index (BMI) [Ratio] 37.69 kg/m2 Eitan Price Work Phone: [facility] Work Phone: 12-14-2021 08:30-0500 Body surface area Derived from formula 1.84 m2 Eitan Price Work Phone: [facility] Work Phone: 12-14-2021 08:30-0500 Body weight 87.54 kg Eitan Price Work Phone: [facility] Work Phone: 12-12-2021 09:25-0500 Diastolic blood pressure 53 mm[Hg] [facility] Work Phone: [facility] 12-12-2021 09:25-0500 Heart rate 51 /min [facility] Work Phone: [facility] 12-12-2021 09:25-0500 Respiratory rate 16 /min [facility] Work Phone: [facility] 12-12-2021 09:25-0500 SaO2% (BldA) [Mass fraction] 98 % [facility] Work Phone: [facility] 12-12-2021 09:25-0500 Systolic blood pressure 148 mm[Hg] [facility] Work Phone: [facility] 12-12-2021 08:34-0500 Body temperature 98.4 [degF] [facility] Work Phone: [facility] 12-09-2021 09:54-0400 Diastolic blood pressure 63 mm[Hg] [facility] Work Phone: [facility] 12-09-2021 09:54-0400 Heart rate 54 /min [facility] Work Phone: [facility] 12-09-2021 09:54-0400 Respiratory rate 16 /min [facility] Work Phone: [facility] 12-09-2021 09:54-0400 SaO2% (BldA) [Mass fraction] 97 % [facility] Work Phone: [facility] 12-09-2021 09:54-0400 Systolic blood pressure 146 mm[Hg] [facility] Work Phone: [facility] 12-09-2021 09:00-0400 Body temperature 98.6 [degF] [facility] Work Phone: [facility] 12-07-2021 10:12-0400 Diastolic blood pressure 47 mm[Hg] [facility] Work Phone: [facility] 12-07-2021 10:12-0400 Heart rate 62 /min [facility] Work Phone: [facility] 12-07-2021 10:12-0400 Respiratory rate 16 /min [facility] Work Phone: [facility] 12-07-2021 10:12-0400 SaO2% (BldA) [Mass fraction] 97 % [facility] Work Phone: [facility] 12-07-2021 10:12-0400 Systolic blood pressure 136 mm[Hg] [facility] Work Phone: [facility] 12-07-2021 09:07-0400 Body temperature 98.4 [degF] Chair [facility] Work Phone: [facility] 11-09-2021 15:23-0400 Body temperature 97.1 [degF] Eitan Bradshawee Work Phone: [facility] Work Phone: 11-09-2021 15:23-0400 Diastolic blood pressure 78 mm[Hg] Eitan Abbasi Mabee Work Phone: [facility] Work Phone: 11-09-2021 15:23-0400 Heart rate 61 /min Eitan Bradshawee Work Phone: [facility] Medicine- Work Phone: 11-09-2021 15:23-0400 SaO2% (BldA) [Mass fraction] 99 % Eitan Bradshawee Work Phone: [facility]- Work Phone: 11-09-2021 15:23-0400 Systolic blood pressure 126 mm[Hg] Eitan Bradshawee Work Phone: [facility]- Work Phone: 11-09-2021 15:20-0400 Body height 152.4 cm Eitan Bradshawee Work Phone: [facility]- Work Phone: 11-09-2021 15:20-0400 Body mass index (BMI) [Ratio] 38.08 kg/m2 Eitan Bradshawee Work Phone: [facility]- Work Phone: 11-09-2021 15:20-0400 Body surface area Derived from formula 1.85 m2 Eitan Bradshawee Work Phone: [facility]- Work Phone: 11-09-2021 15:20-0400 Body weight 88.45 kg Eitan Bradshawee Work Phone: [facility]- Work Phone: 10-06-2021 16:03-0400 Body height 152.4 cm Eitan Abbasi [employer] Work Phone: [facility]- Work Phone: 10-06-2021 16:03-0400 Body mass index (BMI) [Ratio] 38.47 kg/m2 Eitan Abbasi [employer] Work Phone: [facility] Work Phone: 10-06-2021 16:03-0400 Body surface area Derived from formula 1.85 m2 Eitan Bradshawee Work Phone: -[facility]- Work Phone: 10-06-2021 16:03-0400 Body weight 89.36 kg Eitan Bradshawee Work Phone: -[facility]- Work Phone: 10-06-2021 16:03-0400 Diastolic blood pressure 78 mm[Hg] Eitan Bradshawee Work Phone: -[place] [facility]- Work Phone: 10-06-2021 16:03-0400 Heart rate 76 /min Eitan Bradshawee Work Phone: -[place] [facility]- Work Phone: 10-06-2021 16:03-0400 Systolic blood pressure 136 mm[Hg] Eitan Bradshawee Work Phone: -[place] [facility]- Work Phone: 09-22-2021 14:01-0400 Body height 152.4 cm Eitan Bradshawee Work Phone: [facility]- Work Phone: 09-22-2021 14:01-0400 Body mass index (BMI) [Ratio] 39.06 kg/m2 Eitan Bradshawee Work Phone: -[place] [facility]- Work Phone: 09-22-2021 14:01-0400 Body surface area Derived from formula 1.87 m2 Eitan Bradshawee Work Phone: [facility]- Work Phone: 09-22-2021 14:01-0400 Body weight 90.72 kg Eitan Price Work Phone: -[facility]- Work Phone: 09-22-2021 14:01-0400 Diastolic blood pressure 76 mm[Hg] Eitan Bradshawee Work Phone: -[facility]- Work Phone: 09-22-2021 14:01-0400 Heart rate 63 /min Eitan Bradshawee Work Phone: [facility]- Work Phone: 09-22-2021 14:01-0400 Systolic blood pressure 132 mm[Hg] Eitan Bradshawee Work Phone: [facility]- Work Phone: 09-07-2021 13:59-0400 Body height 152.4 cm Eitan Bradshawee Work Phone: [facility]- Work Phone: 09-07-2021 13:59-0400 Body mass index (BMI) [Ratio] 37.69 kg/m2 Eitan Price Work Phone: [facility]- Work Phone: 09-07-2021 13:59-0400 Body surface area Derived from formula 1.84 m2 Eitan Bradshawee Work Phone: [facility]- Work Phone: 09-07-2021 13:59-0400 Body weight 87.54 kg Eitan Bradshawee Work Phone: [facility]- Work Phone: 09-07-2021 13:59-0400 Diastolic blood pressure 74 mm[Hg] Eitan Bradshawee Work Phone: [facility]- Work Phone: 09-07-2021 13:59-0400 Heart rate 68 /min Eitan Abbasi Mabee Work Phone: [facility]- Work Phone: 09-07-2021 13:59-0400 Systolic blood pressure 130 mm[Hg] Eitan Abbasi Mabee Work Phone: [facility]- Work Phone: 08-02-2021 13:25-0400 Body height 152.4 cm Eitan Abbasi Mabee Work Phone: -[facility]- Work Phone: 08-02-2021 13:25-0400 Body mass index (BMI) [Ratio] 37.89 kg/m2 Eitan Abbasi Mabee Work Phone: [facility]- Work Phone: 08-02-2021 13:25-0400 Body surface area Derived from formula 1.84 m2 Eitan Abbasi Mabee Work Phone: [facility]- Work Phone: 08-02-2021 13:25-0400 Body weight 88 kg Eitan Abbasi Mabee Work Phone: [facility]- Work Phone: 08-02-2021 13:25-0400 Diastolic blood pressure 74 mm[Hg] Eitan Abbasi Mabee Work Phone: [facility]- Work Phone: 08-02-2021 13:25-0400 Heart rate 79 /min Eitan Abbasi Mabee Work Phone: [facility]- Work Phone: 08-02-2021 13:25-0400 Systolic blood pressure 130 mm[Hg] Eitan Abbasi Mabee Work Phone: -[facility] Work Phone: 12-17-2020 12:25-0500 Body height 152.4 cm Eitan Abbasi Mabee Work Phone: -[facility] Work Phone: 12-17-2020 12:25-0500 Body mass index (BMI) [Ratio] 37.89 kg/m2 Eitan Abbasi Mabee Work Phone: -[facility] Work Phone: 12-17-2020 12:25-0500 Body surface area Derived from formula 1.84 m2 Eitan Abbasi Mabee Work Phone: -[facility]- Work Phone: 12-17-2020 12:25-0500 Body temperature 97.5 [degF] Eitan Bradshawee Work Phone: -[facility]- Work Phone: 12-17-2020 12:25-0500 Body weight 88 kg Eitan Abbasi Mabee Work Phone: -[facility]- Work Phone: 12-17-2020 12:25-0500 Diastolic blood pressure 60 mm[Hg] Eitan Bradshawee Work Phone: -[facility] [facility] Work Phone: 12-17-2020 12:25-0500 Heart rate 60 /min Eitan Abbasi Mabee Work Phone: -[facility] [facility] Work Phone: 12-17-2020 12:25-0500 Systolic blood pressure 110 mm[Hg] Eitan Abbasi Mabee Work Phone: -[facility] Work Phone: 11-30-2020 14:00-0400 Body height 152.4 cm Eitan Bradshawee Work Phone: [facility]- Work Phone: 11-30-2020 14:00-0400 Body mass index (BMI) [Ratio] 37.3 kg/m2 Eitan Bradshawee Work Phone: [facility]- Work Phone: 11-30-2020 14:00-0400 Body surface area Derived from formula 1.83 m2 Eitan Abbasi Mabee Work Phone: [facility]- Work Phone: 11-30-2020 14:00-0400 Body temperature 97.3 [degF] Eitan Bradshawee Work Phone: [facility]- Work Phone: 11-30-2020 14:00-0400 Body weight 86.64 kg Eitan Bradshawee Work Phone: [facility]- Work Phone: 11-30-2020 14:00-0400 Diastolic blood pressure 68 mm[Hg] Eitan Bradshawee Work Phone: [facility]- Work Phone: 11-30-2020 14:00-0400 Heart rate 58 /min Eitan Abbasi Mabee Work Phone: [facility]- Work Phone: 11-30-2020 14:00-0400 Systolic blood pressure 128 mm[Hg] Eitan Abbasi Mabee Work Phone: [facility]- Work Phone: 11-10-2020 09:35-0400 Body height 152.4 cm Eitan Abbasi [employer] Work Phone: [facility]- Work Phone: 11-10-2020 09:35-0400 Body mass index (BMI) [Ratio] 37.5 kg/m2 Eitan Bradshawee Work Phone: [facility]- Work Phone: 11-10-2020 09:35-0400 Body surface area Derived from formula 1.83 m2 Eitan Bradshawee Work Phone: [facility]- Work Phone: 11-10-2020 09:35-0400 Body temperature 97.3 [degF] Eitan Bradshawee Work Phone: [facility]- Work Phone: 11-10-2020 09:35-0400 Body weight 87.09 kg Eitan Bradshawee Work Phone: [facility]- Work Phone: 11-10-2020 09:35-0400 Diastolic blood pressure 68 mm[Hg] Eitan Bradshawee Work Phone: -[place] [facility]- Work Phone: 11-10-2020 09:35-0400 Heart rate 60 /min Eitan Bradshawee Work Phone: [facility]- Work Phone: 11-10-2020 09:35-0400 Systolic blood pressure 132 mm[Hg] Eitan Bradshawee Work Phone: [facility]- Work Phone: 07-01-2020 15:02-0400 Body mass index (BMI) [Ratio] 17.97 kg/m2 Eitan Bradshawee Work Phone: [facility]- Work Phone: 07-01-2020 15:02-0400 Body surface area Derived from formula 1.34 m2 Eitan Bradshawee Work Phone: -[facility] [facility] Work Phone: 07-01-2020 15:02-0400 Body temperature 97.85 [degF] Eitan Bradshawee Work Phone: -[facility] [facility] Work Phone: 07-01-2020 15:02-0400 Body weight 41.73 kg Eitan Bradshawee Work Phone: [facility] Work Phone: 07-01-2020 15:02-0400 Diastolic blood pressure 70 mm[Hg] Eitan Price Work Phone: -[facility] Work Phone: 07-01-2020 15:02-0400 Heart rate 62 /min Eitan Price Work Phone: -[facility] Work Phone: 07-01-2020 15:02-0400 Systolic blood pressure 128 mm[Hg] Eitan Bradshawee Work Phone: [facility] Work Phone: 08-14-2018 15:56-0400 Body temperature 37.0 Deg [facility] Comment on above: Performed By: #### ABG #### [place] [id number] 07-02-2018 11:57-0400 BMI (Body Mass Index) 38.28 kg/m2 Eitan Price [facility] Work Phone: 07-02-2018 11:57-0400 Body Temperature 97.7 [degF] Eitan Price [facility] Work Phone: 07-02-2018 11:57-0400 Body weight 88.91 kg Eitan [facility] Work Phone: 07-02-2018 11:57-0400 BP Diastolic 74 mm[Hg] [facility] Work Phone: 07-02-2018 11:57-0400 BP Systolic 118 mm[Hg] [facility] Work Phone: 07-02-2018 11:57-0400 BSA (Body Surface Area) 1.85 m2 [facility] Work Phone: 07-02-2018 11:57-0400 Height 152.4 cm Eitan [facility] Work Phone: 07-02-2018 11:57-0400 Pulse (Heart Rate) 60 /min [facility] Work Phone: 09-19-2016 08:27-0400 BMI (Body Mass Index) 39.5 kg/m2 Esperanza Raymundo [facility] Work Phone: 09-19-2016 08:27-0400 BP Diastolic 72 mm[Hg] Esperanza Raymundo [facility] Work Phone: 09-19-2016 08:27-0400 BP Systolic 130 mm[Hg] Esperanza Raymundo [facility] Work Phone: 09-19-2016 08:27-0400 Height 149.86 cm Esperanza Raymundo [facility] Work Phone: 09-19-2016 08:27-0400 Pulse (Heart Rate) 56 /min Esperanza Fonseca [facility] Work Phone: 09-19-2016 08:27-0400 Respiratory Rate 20 /min Esperanza Raymundo [facility] Work Phone: 09-19-2016 08:27-0400 Weight 88.72 kg Esperanza Fonseca [facility] Work Phone: 07-11-2016 13:10-0400 BMI (Body Mass Index) 38.17 kg/m2 Esperanza [facility] Work Phone: 07-11-2016 13:10-0400 BP Diastolic [...] 07-11-2016 13:10-0400 Weight 85.73 kg Esperanza Aguirre [employer] Work Phone: Encounters Encounter Date Encounter Type Care Provider Facility Start: 10-13-2024 [facility] Start: 10-07-2024 End: 10-07-2024 Office outpatient visit 15 minutes Eitan Price MD Work Phone: [facility] Comment on above: Anemia, unspecified type (Primary Dx); ASHD (arteriosclerotic heart disease); Type 2 diabetes mellitus without complication, without long-term current use of insulin; Stage 3a chronic kidney disease (Multi); Anxiety; Hypertension, unspecified type; Gastroesophageal reflux disease without esophagitis; Status post coronary artery stent placement; Dyslipidemia; Traumatic subdural hemorrhage without loss of consciousness, initial encounter (Multi); Class 2 severe obesity due to excess calories with serious comorbidity and body mass index (BMI) of 37.0 to 37.9 in adult; Chronic kidney disease, stage 3b (Multi) Start: 10-07-2024 End: 10-07-2024 ambulatory [facility] Start: 09-30-2024 End: 09-30-2024 ambulatory [facility] Start: 09-29-2024 Encounter for preprocedural cardiovascular examination Apollo Geller [facility] Start: 09-29-[address] Marcos Price MD Work Phone: [facility] Start: 09-29-2024 End: 09-29-2024 Patient encounter procedure Apolloevelia Geller [facility] Work Phone: Start: 09-29-2024 End: 09-29-[address] Eitan Price MD Work Phone: [facility] Start: 09-04-2024 End: 09-04-2024 Office outpatient visit 25 minutes Eitan Price MD Work Phone: [facility] Comment on above: Anemia, unspecified type (Primary Dx); Essential hypertension; Other fatigue; ASHD (arteriosclerotic heart disease); Heart failure, unspecified HF chronicity, unspecified heart failure type; HFrEF (heart failure with reduced ejection fraction); Hypertensive heart and chronic kidney disease with heart failure and stage 1 through stage 4 chronic kidney disease, or unspecified chronic kidney disease; Type 2 diabetes mellitus with stage 3a chronic kidney disease, without long-term current use of insulin (Multi) Start: 09-04-2024 End: 09-04-2024 ambulatory [facility] Start: 08-25-2024 End: 08-25-2024 ambulatory [facility] Facility:[facility] Start: 08-25-2024 End: 08-25-2024 Subsequent hospital visit by physician Chair [facility] Work Phone: [facility] Start: 08-22-2024 End: 08-22-2024 ambulatory [facility] Facility:[facility] Start: 08-20-2024 End: 08-20-2024 ambulatory [facility] Start: 08-20-2024 End: 08-20-2024 Encounter for general adult medical examination without abnormal findings [facility] Start: 08-20-2024 End: 08-20-2024 Assay of hemosiderin, quant Eitan Price MD Work Phone: [facility] Work Phone: Start: 08-20-2024 End: 08-20-2024 Patient encounter procedure Eitan Price MD Work Phone: [facility] Comment on above: Routine general medi malvin examination at [facility] care facility (Primary Dx); Anemia, unspecified type Start: 08-19-2024 End: 08-19-2024 Patient encounter procedure Mark Vazquez MD Work Phone: [facility] Comment on above: 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 (Primary Dx); Type 2 diabetes mellitus without complication, without long-term current use of insulin (HCC); Atrial fibrillation, unspecified type (HCC) Start: 08-19-2024 End: 08-19-2024 ambulatory SELF Facility:[facility] Start: 08-18-2024 End: 08-18-2024 Emergency department patient visit Dr. Eitan Price MD Work Phone: -Emergency Department Work Phone: Start: 08-17-2024 End: 08-18-2024 Emergency department patient visit Dr. Eitan Price MD Work Phone: -Emergency Department Work Phone: Start: 11-28-2023 End: 11-28-2023 Office outpatient visit 15 minutes Eitan Price MD Work Phone: [facility] Comment on above: ASHD (arteriosclerot ic heart disease) (Primary Dx); Hyperlipidemia, unspecified hyperlipidemia type; Type 2 diabetes mellitus without complication, without long-term current use of insulin (Multi); Hypertension, unspecified type; Anemia, unspecified type; CKD (chronic kidney disease), stage II Start: 11-28-2023 End: 11-28-2023 ambulatory [facility] Start: 11-26-2023 End: 11-26-2023 ambulatory [facility] Start: 11-15-2023 ambulatory Terrie Hyatt EXT JS DEVELOPER Facili ty:[facility] Start: 11-14-2023 ambulatory [facility] Start: 11-13-2023 End: 11-13-2023 Patient encounter procedure Mark Vazquez MD Work Phone: [facility] Comment on above: 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 (Primary Dx); Type 2 diabetes mellitus without complication, without long-term current use of insulin (HCC) Start: 11-13-2023 End: 11-14-2023 ambulatory MARK VAZQUEZ Facility:[facility] Start: 11-09-2023 End: 11-09-2023 ambulatory Art Kelton Facility:[facility] Start: 11-06-2023 End: 11-06-2023 ambulatory Art Kelton [facility] Start: 10-03-2023 End: 10-03-2023 Subsequent hospital visit by physician Lynne Holley X-Ray 1 [facility] Comment on above: Chronic pain of both knees Start: 10-03-2023 End: 10-03-2023 ambulatory [facility] Start: 10-03-2023 End: 10-03-2023 Office outpatient visit 25 minutes Eitan Price MD Work Phone: [facility] Comment on above: Depression, unspecif ied depression type (Primary Dx); Chronic pain of both knees; Type 2 diabetes mellitus without complication, without long-term current use of insulin (Multi); Hyperlipidemia, unspecified hyperlipidemia type; Hypertension, unspecified type; ASHD (arteriosclerotic heart disease); Anxiety; HFrEF (heart failure with reduced ejection fraction) (Multi); COPD exacerbation (Multi); Paroxysmal atrial fibrillation (Multi) Start: 06-25-2023 End: 06-25-2023 Assay of hemosiderin, quant Eitan Price MD Work Phone: [facility] Work Phone: Start: 06-25-2023 End: 06-25-2023 Patient encounter procedure Eitan Price MD Work Phone: [facility] Comment on above: Routine general medi malvin examination at health care facility (Primary Dx); Medicare annual wellness visit, subsequent; Depression, unspecified depression type; ASHD (arteriosclerotic heart disease); Type 2 diabetes mellitus without complication, without long-term current use of insulin (Multi) Start: 12-26-2022 End: 12-26-2022 Office outpatient visit 15 minutes Erica Thompson [employer] TECHNICIAN-[employer]ICAL CHEMIST Work Phone: [facility] Comment on above: SDH (subdural hemato ma) (CMS/HCC) (Primary Dx) Start: 12-26-2022 End: 12-26-2022 ambulatory [facility] Start: 12-13-2022 End: 12-13-2022 Office outpatient visit 25 minutes Eitan Price MD Work Phone: [facility] Comment on above: Subdural hemorrhage [...] non-ST elevation myocardial infarction (NSTEMI) (CMS/HCC) Start: 12-07-2022 End: 12-07-[address] Eitan Price Work Phone: [facility] Work Phone: Start: 12-07-2022 End: 12-07-[address] Eitan Price Work Phone: [facility] Work Phone: Start: 12-06-2022 End: 12-06-[address] Eitan Price Work Phone: [facility] Work Phone: Start: 11-29-2022 End: 12-26-2022 ambulatory CORBIN BRYAN [facility] Start: 11-29-2022 End: 11-29-2022 Subsequent hospital visit by physician [facility] Comment on above: ACS (acute coronary syndrome) (CMS/HCC) Start: 11-29-2022 End: 12-02-2022 Evaluation and management of inpatient Corbin Bryan MD Work Phone: [facility] Comment on above: Subdural hemorrhage (CMS/HCC) (Primary Dx); Fall, initial encounter Start: 10-11-2022 End: 10-11-2022 Patient encounter procedure Hearing Aid [facility] [place] Work Phone: [facility] (ENT) Comment on above: Sensorineural hearin g loss (SNHL) of both ears (Primary Dx) Start: 10-05-[address] Eitan Price Facility:[id number] Start: 10-04-2022 End: 10-04-2022 Patient encounter procedure Hearing Aid Otol Ag [place] Work Phone: [facility] (ENT) Comment on above: Sensorineural hearin g loss (SNHL) of both ears (Primary Dx) Start: 08-31-2022 End: 08-31-2022 Patient encounter procedure Hearing Aid Otol Ag [place] Work Phone: [facility] (ENT) Comment on above: ETD (Eustachian tube dysfunction), bilateral (Primary Dx); Sensorineural hearing loss (SNHL) of both ears Start: 06-02-2022 ambulatory Ms. Tori Humphrey Facility:[id number] Start: 06-02-2022 End: 06-02-2022 Office outpatient visit 25 minutes Tori Viramontes Patrickmercedez [facility] Work Phone: [facility] Comment on above: Acute cough (Primary Dx); Upper respiratory tract infection, unspecified type; Anemia, unspecified type; Type 2 diabetes mellitus without complication, without long-term current use of insulin ([facility]); Iron deficiency; Vitamin B12 deficiency; Screening for thyroid disorder; Vitamin D deficiency; Hyperlipidemia, unspecified hyperlipidemia type Start: 02-03-2022 AUDIT Eitan Price Work Phone: [facility] Work Phone: Start: 01-11-2022 End: 01-12-2022 ambulatory Jose Juhi Work Phone: [facility] Comment on above: Anemia, unspecified (Primary Dx) Start: 12-14-2021 Office outpatient vi sit 25 minutes Eitan Price Work Phone: [facility] Work Phone: Start: 12-12-2021 End: 12-12-2021 Subsequent hospital visit by physician Chair [facility] Work Phone: Infusion Center Comment on above: [facility] Start: 12-09-2021 Chart Update Eitan Price Work Phone: [facility] Work Phone: Start: 12-09-2021 End: 12-09-2021 Subsequent hospital visit by physician Chair [facility] Work Phone: [facility]fusion [facility] Comment on above: [facility] Start: 12-07-2021 End: 12-07-2021 Subsequent hospital visit by physician Chair [facility] Work Phone: [facility]fusion Center Comment on above: [facility] Start: 12-02-2021 AUDIT Eitan Price [facility] Work Phone: Start: 11-22-2021 Chart Update Eitan Abbasi Mabee Work Phone: [facility] [facility] Work Phone: Start: 11-09-2021 Chart Update Eitan Abbasi Mabee Work Phone: [facility] [facility] Work Phone: Start: 10-06-2021 Office outpatient vi sit 25 minutes Eitan Abbasi [place] Work Phone: [facility] [facility] Work Phone: Start: 10-03-2021 AUDIT Eitan Abbasi [place] Work Phone: [facility] [facility] Work Phone: Start: 09-22-2021 Office outpatient vi sit 25 minutes Eitan Abbasi [place] Work Phone: [facility] [facility] Work Phone: Start: 09-15-2021 Chart Update Eitan Abbasi [place] Work Phone: [facility] [facility] Work Phone: Start: 09-07-2021 Office outpatient vi sit 25 minutes Eitan Abbasi Mabee Work Phone: [facility] Work Phone: Start: 08-24-2021 AUDIT Eitan Abbasi Mabee Work Phone: [facility] Work Phone: Start: 08-04-2021 Chart Update Eitan Abbasi Mabee Work Phone: [facility] Work Phone: Start: 08-03-2021 Chart Update Eitan Abbasi Mabee Work Phone: [facility] Work Phone: Start: 08-02-2021 Office outpatient vi sit 25 minutes Eitan Ayleen Mabee Work Phone: [facility] Work Phone: Start: 08-02-2021 Patient encounter procedure Eitan Price Work Phone: [facility] Work Phone: Start: 08-01-2021 Chart Update Eitan Price Work Phone: [facility] Work Phone: Start: 12-17-2020 FUV, Provider: Eitan Price, Status: Pen, Time: 12:45 PM Eitan Price Work Phone: [facility] Work Phone: Start: 12-17-2020 Office outpatient vi sit 15 minutes Eitan Price Work Phone: [facility] Work Phone: Start: 12-17-2020 Patient encounter procedure Eitan Price Work Phone: [facility] Work Phone: Start: 12-15-2020 Chart Update Eitan Price Work Phone: [facility] Work Phone: Start: 11-30-2020 Office outpatient vi sit 25 minutes Eitan Price Work Phone: [facility] Work Phone: Start: 07-01-2020 Office outpatient vi sit 25 minutes Eitan Price Work Phone: [facility] Work Phone: Start: 07-29-2019 End: 07-29-2019 Subsequent hospital visit by physician Ct [facility] Comment on above: Left lower quadrant pain [R10.32] Start: 07-02-2018 Patient encounter procedure Eitan Price [facility] Work Phone: Start: 01-01-2018 Patient encounter procedure [facility]- Work Phone: Start: 07-04-2017 Patient encounter procedure Eitan Price [facility] Work Phone: Start: 12-12-2016 Patient encounter procedure E[facility]- Work Phone: Start: 08-16-2016 Patient encounter procedure Eitan Price [facility] Work Phone: Start: 07-14-2016 Patient encounter procedure Eitan Price [facility] Work Phone: Start: 07-13-2010 End: 07-13-2010 Patient encounter procedure Phill Rodarte Work Phone: [facility] Start: 07-13-2010 Results Only Phill Rodarte Work Phone: [facility] Start: 11-11-2008 End: 11-11-2008 Patient encounter procedure Phill Rodarte Work Phone: [facility] Start: 11-11-2008 Results Only Phill Rodarte Work Phone: [facility] Start: 10-23-2007 End: 10-23-2007 Patient encounter procedure Mckay Wang Work Phone: [facility] Start: 10-23-2007 Results Only Mckay hussein Work Phone: [facility] Patient encounter procedure Eitan Price Work Phone: [facility] Work Phone: Procedures Date Procedure Procedure Detail Performing Clinician Start: 08-25-2024 CONFIRM BLOOD TYPE Wilfrid Price MD Work Phone: Start: 08-22-2024 Antibody screen EITAN ROCK Comment on above: Order Comment: Speci men Type: BLOOD SPECIMEN Ordering Facility: [facility] Address: [address] [place] [address] Performed By: #### L [id number], TSCR #### [facility] [id number] [address] [place] [address] [place] Start: 08-19-2024 Arthrocentesis aspir &/inj major jt/bursa w/o us Mark Vazquez MD Work Phone: Start: 08-17-2024 Plain chest X-ray Dr. Marcos Price MD Work Phone: Start: 08-17-[address] Eitan Price MD Work Phone: Start: 08-15-2024 Lipid 1996 panel - S ria or Plasma Eitan Price MD Work Phone: Start: 11-28-2023 [...] Eitan Price MD Work Phone: Start: 06-19-2023 Lipid 1996 panel - S ria or Plasma Eitan Price MD Work Phone: Start: 12-26-2022 ECG 12-LEAD EITAN Chowdary Start: 12-11-2022 Lipid 1996 panel - S ria or Plasma Eitan Price MD Work Phone: Start: 12-02-2022 DISCHARGE PATIENT EITAN PRICE Start: 12-02-2022 ADULT DISCHARGE DIET SC CATHI PRICE Start: 12-02-2022 DISCHARGE ACTIVITY SCOT T ALBERT Start: 12-02-2022 NOTIFY PROVIDER (DO NOT PROMPT FOR PARAMETERS) EITAN PRICE Start: 12-02-2022 Basic metabolic 2000 panel - Serum or Plasma ETIAN [facility] Start: 12-02-2022 CBC panel - Blood by Automated count [facility] Start: 12-02-2022 Basic metabolic pane l calcium total Viki Edmond HYDRO PLANT TECHNICIAN-PHYSICAL CHEMIST Work Phone: Start: 11-30-2022 ECG 12-LEAD EITAN DELEON Ricarda Start: 11-30-2022 Ecg routine ecg w/le ast 12 lds trcg only w/o i&r Historical Provider Work Phone: Start: 11-30-2022 IP CONSULT TO [employer] [facility] Start: 11-30-2022 Glucose [Mass/volume ] in Serum or Plasma [facility] Start: 11-30-2022 Basic metabolic 1999 panel - Serum or Plasma [facility] Start: 11-30-2022 CBC panel - Blood by Automated count [facility] Start: 11-30-2022 Glucose quantitative blood xcpt reagent strip Jose Bennett MD Work Phone: Start: 11-30-2022 Basic metabolic pane l calcium total Sintia Hernandez PA-C Work Phone: Start: 11-30-2022 Glucose [Mass/volume ] in Serum or Plasma [facility] Start: 11-30-2022 HEIGHT AND WEIGHT [facility] Start: 11-30-2022 REASON FOR NO DVT PROPHYLAXIS - HOSPITAL ADMISSION - MEDICATIONS [facility] Start: 11-30-2022 TELEMETRY MONITORING SC [facility] Start: 11-30-2022 Glucose quantitative blood xcpt reagent strip Jose Bennett MD Work Phone: Start: 11-30-2022 CT HEAD WO IV CONTRAST EITAN [facility] Start: 11-29-2022 Glucose [Mass/volume ] in Serum or Plasma [facility] Start: 11-29-2022 Ct head/brain w/o co ntrast material Florence Borges DO Work Phone: Start: 11-29-2022 Glucose quantitative blood xcpt reagent strip Jose Bennett MD Work Phone: Start: 11-29-2022 IP CONSULT TO CARDIOLOGY EITAN [facility] Start: 11-29-2022 ADMIT TO INPATIENT SCOT Teena PRICE Start: 11-29-2022 Basic metabolic 2000 panel - Serum or Plasma EITAN BRADSHAWEE Start: 11-29-2022 CBC W Auto Different ial panel - Blood EITAN BRADSHAWEE Start: 11-29-2022 PROTIME-INR EITAN DELEON E Start: 11-29-2022 TYPE AND SCREEN EITAN ROCK Start: 11-29-2022 ED TO FLOOR BED REQUEST EITAN BRADSHAWEE Start: 11-29-2022 INSERT PERIPHERAL IV SC CATHI PRICE Start: 11-29-2022 IP CONSULT TO NEUROSURGERY EITAN BRADSHAWEE Start: 11-29-2022 CT CERVICAL SPINE WO IV CONTRAST EITAN BRADSHAWEE Start: 11-29-2022 CT FACIAL BONES WO I V CONTRAST EITAN BRADSHAWEE Start: 11-29-2022 CT HEAD W/O CONTRAST TRAUMA PROTOCOL EITAN [facility] Start: 11-29-2022 Antibody screen rbc each serum [...] - S ria or Plasma Tori Roblero HYDRO PLANT TECHNICIAN-PHYSICAL CHEMIST Work Phone: Start: 07-29-2019 Ct abdomen & pelvis w/o contrast material Tenisha Jackson Work Phone: Start: 07-02-2018 Albumin, Urine Spot Sco tt Albert Start: 07-02-2018 Comprehensive metabo lic 2000 panel Eitan Price Start: 07-02-2018 Hemoglobin glycosyla len a1c Eitan Price Start: 07-02-2018 Lipid panel Eitan chowdary Start: 09-19-2016 End: 09-19-2016 VLADISLAV Rondon MD [...] Phone: Start: 08-05-2016 End: 09-19-2016 Referral to body shop mechanic Oscar Rondon MD Work Phone: Start: 07-11-2016 End: 07-11-2016 VLADISLAV Rondon MD Work Phone: Start: 07-11-2016 End: 07-11-2016 Follow Up Appt 2 months Oscar Rondon MD Work Phone: Start: 07-10-2016 History of placement of stent for coronary artery disease Status post coronary artery stent placement Tori Roblero [employer] TECHNICIANGdeSlon Work Phone: Start: 07-10-2016 Placement of stent i n coronary artery Status post cardiac stent placement Jaime Trish Start: 06-23-2016 History of placement of stent for coronary artery disease History of coronary artery stent placement Tori Roblero [employer] TECHNICIANGdeSlon Work Phone: Comment on above: PCI/SHEILA to LAD w/ 3. 0 x 16 mm [employer]nergy 06/23/2016 Start: 07-13-2010 CONVERTED SURGICAL PATHOLOGY Phill Rodarte Work Phone: Start: 11-11-2008 CONVERTED SURGICAL PATHOLOGY Phill Rodarte Work Phone: Start: 10-23-2007 CONVERTED SURGICAL PATHOLOGY Mckay Wang Work Phone: Appendectomy Eitan Price History of Cath Sten t Placement Eitan Price History of placement of stent for coronary artery disease Status post coronary artery stent placement Eitan Price MD Work Phone: Hysterectomy Eitan Price Screening colonoscopy Eitan Price Plan of Treatment Date Care Activity Detail Author Start: 11-29-2032 DTaP/Tdap/Td Vaccine s (2 - Td or Tdap) DTaP/Tdap/Td Vaccines (2 - Td or Tdap) [facility] Start: 11-29-2032 Urine microalbumin profile DTaP,Tdap,Td Vaccine (2 - Td or Tdap) [facility] Start: 09-27-2026 Diabetes Screening Diabetes Screenin g [facility] Start: 08-21-2025 Medicare Annual Well ness Visit Medicare Annual Wellness Visit (AWV) [facility] Start: 08-15-2025 Creatinine measurement Creatinine [facility] Start: 08-15-2025 Hepatitis B surface antibody level LDL Cholesterol [facility] Start: 08-15-2025 Lipid panel Lipid Panel [facility] Start: 08-15-2025 Potassium measurement Potassium Leve l [facility] Start: 06-26-2025 DIABETES SCREEN DIABETES SCREEN [facility] Start: 02-15-2025 Hemoglobin A1c measurement HbA1C [facility] Start: 11-25-2024 Creatinine measurement Creatinine [facility] Start: 11-25-2024 Potassium measurement Potassium Leve l [facility] Start: 11-20-2024 End: 11-20-2024 Patient encounter procedure 11/20/2024 2:30 PM EDT Office Visit [facility] [address] [facility] [place] [address] Eitan Price MD [address] [facility], [address] [place] [address] [facility] Start: 11-15-2024 Hemoglobin A1c measurement Diabetes: Hemoglobin A1C [facility] Start: 11-06-2024 End: 10-07-2025 CBC W Auto Differential panel - Blood CBC and Auto Differential Lab Routine Anemia, unspecified type Expected: 11/06/2024 (Approximate), Expires: 10/07/2025 [facility] Work Phone: Comment on above: Expected: 11/06/2024 (Approximate), Expires: 10/07/2025 Start: 11-06-2024 End: 10-07-2025 Comprehensive metabolic 2000 panel - Serum or Plasma Comprehensive metabolic panel Lab Routine ASHD (arteriosclerotic heart disease) Expected: 11/06/2024 (Approximate), Expires: 10/07/2025 [facility] Service Area Work Phone: Comment on above: Expected: 11/06/2024 (Approximate), Expires: 10/07/2025 Start: 11-06-2024 End: 10-07-2025 Ferritin [Mass/volume] in Serum or Plasma Ferritin Lab Routine Anemia, unspecified type Expected: 11/06/2024 (Approximate), Expires: 10/07/2025 [facility] Work Phone: Comment on above: Expected: 11/06/2024 (Approximate), Expires: 10/07/2025 Start: 11-06-2024 End: 10-07-2025 Hemoglobin A1c/Hemoglobin.total in Blood Hemoglobin A1C Lab Routine Type 2 diabetes mellitus without complication, without long-term current use of insulin Expected: 11/06/2024 (Approximate), Expires: 10/07/2025 [facility] Work Phone: Comment on above: Expected: 11/06/2024 (Approximate), Expires: 10/07/2025 Start: 11-06-2024 End: 10-07-2025 Iron and Iron binding capacity panel - Serum or Plasma Iron and TIBC Lab Routine Anemia, unspecified type Expected: 11/06/2024 (Approximate), Expires: 10/07/2025 [facility] Work Phone: Comment on above: Expected: 11/06/2024 (Approximate), Expires: 10/07/2025 Start: 11-06-2024 End: 10-07-2025 Lipid 1996 panel - Serum or Plasma Lipid Panel Lab Routine ASHD (arteriosclerotic heart disease) Expected: 11/06/2024 (Approximate), Expires: 10/07/2025 [facility] Work Phone: Comment on above: Expected: 11/06/2024 (Approximate), Expires: 10/07/2025 Start: 10-07-2024 End: 10-07-2024 Patient encounter procedure 10/07/2024 11:30 AM EDT Office Visit [facility] [address] [facility] [address] [place] [phone] [place] [address] [place] [address], [address] [place], [place] [id number] [facility] Start: 10-06-2024 COVID-19 Vaccine ( season) COVID-19 Vaccine ( season) [facility] Start: 10-06-2024 Influenza vaccination Influenza Vacc ine (#1) [facility] Start: 09-29-2024 Evaluation of diagno stic study results [facility] Start: 09-27-2024 Lipid panel Lipid Panel [facility] Start: 09-04-2024 End: 09-04-2024 Patient encounter procedure 09/04/2024 2:30 PM EDT Office Visit [facility] [address] [facility] [address] [place] [phone] Eitan Price MD [address] [facility], [address] [place], [place] [id number] [facility] Start: 09-04-2024 End: 09-04-2025 CBC W Auto Differential panel - Blood CBC and Auto Differential Lab Routine Anemia, unspecified type Expected: 09/04/2024 (Approximate), Expires: 09/04/2025 [facility] Service Area Work Phone: Comment on above: Expected: 09/04/2024 (Approximate), Expires: 09/04/2025 Start: 09-04-2024 End: 09-04-2025 Cobalamin (Vitamin B12) [Mass/volume] in Serum or Plasma Vitamin B12 Lab Routine Anemia, unspecified type Expected: 09/04/2024 (Approximate), Expires: 09/04/2025 [facility] Work Phone: Comment on above: Expected: 09/04/2024 (Approximate), Expires: 09/04/2025 Start: 09-04-2024 End: 09-04-2025 Ferritin [Mass/volume] in Serum or Plasma Ferritin Lab Routine Anemia, unspecified type Expected: 09/04/2024 (Approximate), Expires: 09/04/2025 [facility] Work Phone: Comment on above: Expected: 09/04/2024 (Approximate), Expires: 09/04/2025 Start: 09-04-2024 End: 09-04-2025 Folate [Mass/volume] in Serum or Plasma Folate Lab Routine Anemia, unspecified type Expected: 09/04/2024 (Approximate), Expires: 09/04/2025 [facility] Work Phone: Comment on above: Expected: 09/04/2024 (Approximate), Expires: 09/04/2025 Start: 09-04-2024 End: 09-11-2024 Hemoglobin.gastrointesti nal [Presence] in Stool --1st specimen Occult Blood, Stool Microbiology Routine Anemia, unspecified type Expected: 09/04/2024 (Approximate), Expires: 09/11/2024 [facility] Work Phone: Comment on above: Expected: 09/04/2024 (Approximate), Expires: 09/11/2024 Start: 09-04-2024 End: 09-04-2025 Iron and Iron binding capacity panel - Serum or Plasma Iron and TIBC Lab Routine Anemia, unspecified type Expected: 09/04/2024 (Approximate), Expires: 09/04/2025 [facility] Work Phone: Comment on above: Expected: 09/04/2024 (Approximate), Expires: 09/04/2025 Start: 09-04-2024 End: 09-04-2025 Protein electrophoresis panel - Serum or Plasma Serum Protein Electrophoresis Lab Routine Anemia, unspecified type Expected: 09/04/2024 (Approximate), Expires: 09/04/2025 [facility] Work Phone: Comment on above: Expected: 09/04/2024 (Approximate), Expires: 09/04/2025 Start: 09-04-2024 End: 09-04-2025 Reticulocytes panel - Blood Reticulocytes Lab Routine Anemia, unspecified type Expected: 09/04/2024 (Approximate), Expires: 09/04/2025 [facility] Work Phone: Comment on above: Expected: 09/04/2024 (Approximate), Expires: 09/04/2025 Start: 09-04-2024 End: 09-04-2025 Tsh With Reflex To Free T4 If Abnormal Tsh With Reflex To Free T4 If Abnormal Lab Routine Other fatigue Expected: 09/04/2024 (Approximate), Expires: 09/04/2025 [facility] Work Phone: Comment on above: Expected: 09/04/2024 (Approximate), Expires: 09/04/2025 Start: 08-20-2024 End: 08-27-2024 Hemoglobin.gastrointesti nal [Presence] in Stool --1st specimen Occult Blood, Stool Microbiology Routine Anemia, unspecified type Expected: 08/20/2024 (Approximate), Expires: 08/27/2024 [facility] Service Area Work Phone: Comment on above: Expected: 08/20/2024 (Approximate), Expires: 08/27/2024 Start: 08-18-2024 [facility] Start: 08-17-2024 [facility] Start: 07-10-2024 End: 07-10-2024 Patient encounter procedure 07/10/2024 11:00 AM EDT Office Visit [facility] [address] [place] [phone] Eitan Price MD [address] [facility], [address] [place] [address] [facility] Start: 06-25-2024 Medicare Annual Well ness Visit Medicare Annual Wellness Visit (AWV) [facility] Start: 06-18-2024 Lipid panel Lipid Panel [facility] Start: 05-21-2024 COVID-19 Vaccine () COVID-19 Vaccine () [facility] Start: 05-21-2024 Covid-19 Vaccine () Covid-19 Vaccine () [facility] Start: 02-26-2024 Hemoglobin A1c measurement Diabetes: Hemoglobin A1C [facility] Start: 02-06-2024 Advance Directive Discussion Advance Directive Discussion [facility] Start: 02-06-2024 Medicare Advantage Annual Wellness Visit Medicare Advantage Annual Wellness Visit [facility] Start: 12-29-2023 Hemoglobin A1c measurement Diabetes: Hemoglobin A1C [facility] Start: 12-12-2023 Lipid panel Lipid Panel [facility] Start: 12-08-2023 Echocardiography Echocardiogram [facility] Start: 11-28-2023 End: 11-28-2023 Patient encounter procedure 11/28/2023 10:00 AM EDT Office Visit [facility] [address] [place] [phone] Eitan Price MD [address] [facility], [address] [place] [address] [facility] Start: 11-25-2023 End: 08-28-2025 Comprehensive metabolic 2000 panel - Serum or Plasma Comprehensive metabolic panel Lab Routine Type 2 diabetes mellitus without complication, without long-term current use of insulin (Multi) Expected: 11/25/2023 (Approximate), Expires: 10/02/2024 [facility] Service Area Work Phone: Comment on above: Expected: 11/25/2023 (Approximate), Expires: 10/02/2024 Start: 11-25-2023 End: 10-02-2024 Hemoglobin A1c/Hemoglobin.total in Blood Hemoglobin A1C Lab Routine Type 2 diabetes mellitus without complication, without long-term current use of insulin (Multi) Expected: 11/25/2023 (Approximate), Expires: 10/02/2024 [facility] Work Phone: Comment on above: Expected: 11/25/2023 (Approximate), Expires: 10/02/2024 Start: 10-07-2023 Covid-19 Vaccine ( season) Covid-19 Vaccine () [facility] Start: 10-07-2023 Influenza vaccination Influenza Vacc ine (#1) [facility] Start: 10-03-2023 End: 10-03-2023 Patient encounter procedure 10/03/2023 3:30 PM EDT Office Visit [facility] [address] [facility] [address] [place] [phone] Eitan Price MD [address] [facility], [address] [place] [address] [facility] Start: 10-03-2023 End: 10-02-2024 XR Knee - bilateral AP W standing [facility] Service Area Work Phone: Comment on above: Once for 1 Occurrenc es starting 10/03/2023 until 10/03/2023 Expected: 10/03/2023 , Expires: 10/02/2024 Start: 09-25-2023 End: 06-24-2024 CBC W Auto Differential panel - Blood CBC and Auto Differential Lab Routine ASHD (arteriosclerotic heart disease) Expected: 09/25/2023 (Approximate), Expires: 06/24/2024 [facility] Work Phone: Comment on above: Expected: 09/25/2023 (Approximate), Expires: 06/24/2024 Start: 09-25-2023 End: 06-24-2024 Comprehensive metabolic 2000 panel - Serum or Plasma Comprehensive metabolic panel Lab Routine ASHD (arteriosclerotic heart disease) Expected: 09/25/2023 (Approximate), Expires: 06/24/2024 [facility] Service Area Work Phone: Comment on above: Expected: 09/25/2023 (Approximate), Expires: 06/24/2024 Start: 09-25-2023 End: 06-24-2024 Hemoglobin A1c/Hemoglobin.total in Blood Hemoglobin A1C Lab Routine Type 2 diabetes mellitus without complication, without long-term current use of insulin (Multi) Expected: 09/25/2023 (Approximate), Expires: 06/24/2024 [facility] Work Phone: Comment on above: Expected: 09/25/2023 (Approximate), Expires: 06/24/2024 Start: 09-25-2023 End: 06-24-2024 Lipid 1996 panel - Serum or Plasma Lipid Panel Lab Routine ASHD (arteriosclerotic heart disease) Expected: 09/25/2023 (Approximate), Expires: 06/24/2024 [facility] Work Phone: Comment on above: Expected: 09/25/2023 (Approximate), Expires: 06/24/2024 Start: 09-19-2023 Hemoglobin A1c measurement Diabetes: Hemoglobin A1C [facility] Start: 06-30-2023 Medicare Annual Well ness Visit Medicare Annual Wellness Visit (AWV) [facility] Start: 06-27-2023 Lipid panel Lipid Panel [facility] Start: 06-25-2023 End: 06-25-2023 Patient encounter procedure 06/25/2023 2:30 PM EDT Office Visit [facility] [address] [place] [phone] Eitan Price MD [address] [facility], [address] [place] [address] [facility] Start: 04-25-2023 COVID-19 Vaccine () COVID-19 Vaccine () [facility] Start: 04-23-2023 Hepatitis B screening Urine Albumin:Creatinine Ratio [facility] Start: 04-23-2023 Urine screening for protein Diabetes: Urine Protein Screening [facility] Start: 03-13-2023 Hemoglobin A1c measurement Diabetes: Hemoglobin A1C [facility] Start: 02-19-2023 COVID-19 Vaccine (4 - Moderna series) COVID-19 Vaccine (4 - Moderna series) [facility] Start: 02-05-2023 Advance Directive Discussion Advance Directive Discussion [facility] Start: 12-26-2022 End: 12-26-2022 Patient encounter procedure 12/26/2022 10:30 AM EST Office Visit [facility] [address] [place] [phone] Erica Thompson, [facility] [address] [place] [address] [facility] Start: 12-20-2022 End: 12-20-2022 Professional / ancillary services management 12/20/2022 10:30 AM EST Ancillary Procedure [facility] [address] [facility] [address] [place] [phone] [facility] Start: 12-13-2022 End: 12-13-2022 Patient encounter procedure 12/13/2022 3:00 PM EST Office Visit [facility] [address] [place] [phone] Eitan Price MD [address] [facility], [address] [place] [address] [facility] Start: 10-06-2022 [facility] Start: 09-26-2022 Hemoglobin A1c measurement Diabetes: Hemoglobin A1C [facility] Start: 08-03-2022 Medicare Annual Well ness Visit Medicare Annual Wellness Visit (AWV) [facility] Start: 08-01-2022 Lipid panel Lipid Panel [facility] Start: 07-28-2022 DIABETES SCREEN DIABETES SCREEN [facility] Start: 07-24-2022 Hemoglobin A1c measurement Diabetes: Hemoglobin A1C [facility] Start: 06-28-2022 End: 06-28-2022 Patient encounter procedure 06/28/2022 3:00 PM EDT Office Visit [facility] [address] [facility] [address] [place] [phone] Eitan Price MD [address] [facility], [address] [place] [address] [facility] Start: 06-02-2022 End: 06-03-2023 Calcitriol [Mass/volume] in Serum or Plasma Vitamin D 1,25 Dihydroxy Lab Routine Vitamin D deficiency Expected: 06/02/2022 (Approximate), Expires: 06/03/2023 [facility] Work Phone: Comment on above: Expected: 06/02/2022 (Approximate), Expires: 06/03/2023 Start: 06-02-2022 End: 06-03-2023 CBC W Auto Differential panel - Blood CBC and Auto Differential Lab Routine Iron deficiency Expected: 06/02/2022 (Approximate), Expires: 06/03/2023 [facility] Work Phone: Comment on above: Expected: 06/02/2022 (Approximate), Expires: 06/03/2023 Start: 06-02-2022 End: 06-03-2023 Cobalamin (Vitamin B12) [Mass/volume] in Serum or Plasma Vitamin B12 Lab Routine Vitamin B12 deficiency Expected: 06/02/2022 (Approximate), Expires: 06/03/2023 [facility] Work Phone: Comment on above: Expected: 06/02/2022 (Approximate), Expires: 06/03/2023 Start: 06-02-2022 End: 06-03-2023 Comprehensive metabolic 2000 panel - Serum or Plasma Comprehensive Metabolic Panel Lab Routine Anemia, unspecified type Expected: 06/02/2022 (Approximate), Expires: 06/03/2023 [facility] Work Phone: Comment on above: Expected: 06/02/2022 (Approximate), Expires: 06/03/2023 Start: 06-02-2022 End: 06-03-2023 Hemoglobin A1c/Hemoglobin.total in Blood Hemoglobin A1C Lab Routine Type 2 diabetes mellitus without complication, without long-term current use of insulin ([facility]) Expected: 06/02/2022 (Approximate), Expires: 06/03/2023 [facility] Work Phone: Comment on above: Expected: 06/02/2022 (Approximate), Expires: 06/03/2023 Start: 06-02-2022 End: 06-03-2023 Iron and Iron binding capacity panel - Serum or Plasma Iron and TIBC Lab Routine Anemia, unspecified type Iron deficiency Expected: 06/02/2022 (Approximate), Expires: 06/03/2023 [facility] Work Phone: Comment on above: Expected: 06/02/2022 (Approximate), Expires: 06/03/2023 Start: 06-02-2022 End: 06-03-2023 Lipid 1996 panel - Serum or Plasma Lipid Panel Lab Routine Hyperlipidemia, unspecified hyperlipidemia type Expected: 06/02/2022 (Approximate), Expires: 06/03/2023 [facility] Work Phone: Comment on above: Expected: 06/02/2022 (Approximate), Expires: 06/03/2023 Start: 06-02-2022 End: 06-03-2023 TSH with reflex to Free T4 if abnormal TSH with reflex to Free T4 if abnormal Lab Routine Screening for thyroid disorder Expected: 06/02/2022 (Approximate), Expires: 06/03/2023 [facility] Work Phone: Comment on above: Expected: 06/02/2022 (Approximate), Expires: 06/03/2023 Start: 06-02-2022 End: 06-03-2023 XR Chest 2 Views [facility] Service Area Work Phone: Comment on above: Expected: 06/02/2022 , Expires: 06/03/2023 Start: 04-04-2022 COVID-19 VACCINE (5 - Moderna series) COVID-19 VACCINE (5 - Moderna series) [facility] Start: 02-05-2022 ADVANCE DIRECTIVE DISCUSSION ADVANCE DIRECTIVE DISCUSSION [facility] Start: 02-05-2022 DEPRESSION ASSESSMENT DEPRESSION ASS ESSMENT [facility] Start: 01-27-2022 COVID-19 Vaccine (4 - Booster for Moderna series) COVID-19 Vaccine (4 - Booster for Moderna series) [facility] Start: 01-27-2022 COVID-19 Vaccine (4 - Moderna series) COVID-19 Vaccine (4 - Moderna series) [facility] Start: 12-14-2021 FUV, Provider: Eitan Price, Status: Pen, Time: 8:30 AM FUV, Provider: Eitan Price, Status: Pen, Time: 8:30 AM [facility] Work Phone: Start: 11-09-2021 FUV, Provider: Eitan Price, Status: Pen, Time: 3:30 PM FUV, Provider: Eitan Price, Status: Pen, Time: 3:30 PM [facility] Work Phone: Start: 10-06-2021 FUV, Provider: Eitan Price, Status: Pen, Time: 4:00 PM FUV, Provider: Eitan Price, Status: Pen, Time: 4:00 PM [facility] Work Phone: Start: 10-06-2021 Influenza vaccination INFLUENZA (#1) [facility] Start: 09-22-2021 FUV, Provider: Eitan Price, Status: Pen, Time: 2:00 PM FUV, Provider: Eitan Price, Status: Pen, Time: 2:00 PM [facility] Work Phone: Start: 09-07-2021 FUV, Provider: Eitan Price, Status: Pen, Time: 2:00 PM FUV, Provider: Eitan Price, Status: Pen, Time: 2:00 PM [facility] Work Phone: Start: 06-20-2021 FUV, Provider: Eitan Price, Status: Pen, Time: 11:00 AM FUV, Provider: Eitan Price, Status: Pen, Time: 11:00 AM [facility] Work Phone: Start: 02-05-2021 ADVANCE DIRECTIVE DISCUSSION ADVANCE DIRECTIVE DISCUSSION [facility] Start: 02-05-2021 DEPRESSION ASSESSMENT DEPRESSION ASS ESSMENT [facility] Start: 12-17-2020 FUV, Provider: Eitan Price, Status: Pen, Time: 12:45 PM FUV, Provider: Eitan Price, Status: Pen, Time: 12:45 PM [facility] Work Phone: Start: 11-30-2020 FUV, Provider: Eitan Price, Status: Pen, Time: 2:00 PM FUV, Provider: Eitan Price, Status: Pen, Time: 2:00 PM [facility] Work Phone: Start: 10-07-2019 Influenza vaccination C [facility] Start: 12-06-2018 Comprehensive metabo lic 2000 panel [facility] Work Phone: Start: 12-06-2018 HbA1c (Bld) [Mass fraction] Hemoglobin A1C [facility] Work Phone: Start: 12-06-2018 Lipid panel Lipid Panel [facility] Work Phone: Start: 07-05-2017 End: 07-05-2017 Appointment [facility] Work Phone: Start: 03-05-2017 End: 09-01-2016 *Hepatic Function Panel *Hepatic Function Panel [facility] Work Phone: Start: 03-05-2017 End: 09-01-2016 Lipid panel [AGGREGATE] *Lipid Profile CC PCP [facility] Work Phone: Start: 09-19-2016 End: 09-19-2016 Appointment Appointment [facility] Work Phone: Start: 09-19-2016 End: 09-19-2016 Cardiac Rehab Cardiac Rehab [facility] Work Phone: Start: 09-19-2016 End: 09-19-2016 VLADISLAV LOOMIS [facility] Work Phone: Start: 09-19-2016 End: 09-19-2016 Follow Up Appt 9 months Follow Up Appt 9 months [facility] Work Phone: Start: 08-05-2016 End: 08-31-2016 *Hepatic Function Panel *Hepatic Function Panel [facility] Work Phone: Start: 08-05-2016 End: 07-12-2016 Cardiac Rehab Cardiac Rehab [address] [place], [address] [facility] Work Phone: Start: 08-05-2016 End: 08-31-2016 CBC W Auto Differential panel - Blood *CBC without Diff [facility] Work Phone: Start: 08-05-2016 End: 08-31-2016 Lipid panel [AGGREGATE] *Lipid Profile CC PCP [facility] Work Phone: Start: 07-11-2016 End: 07-11-2016 Appointment Appointment [facility] Work Phone: Start: 07-11-2016 End: 07-11-2016 VLADISLAV LOOMIS [facility] Work Phone: Start: 07-11-2016 End: 07-11-2016 Follow Up Appt 2 months Follow Up Appt 2 months [facility] Work Phone: Start: 12-20-2010 RSV High Risk: (Elde rly (60+) or Population) (1 - 1-dose 75+ series) RSV High Risk: (Elderly (60+) or Population) (1 - 1-dose 75+ series) [facility] Start: 12-20-2010 RSV Vaccine (1 - 1-d ose 75+ series) RSV Vaccine (1 - 1-dose 75+ series) [facility] Start: 12-20-2000 ADVANCE DIRECTIVE DISCUSSION ADVANCE DIRECTIVE DISCUSSION [facility] Start: 12-20-2000 BONE DENSITY BONE DENSITY [facility] Start: 12-20-2000 PNEUMOCOCCAL: 65+ (1 - PCV) PNEUMOCOCCAL: 65+ (1 - PCV) [facility] Start: 12-20-2000 PNEUMOVAX AGE 65 AND OVER WITH 5YR LOOKBACK (#1) PNEUMOVAX AGE 65 AND OVER WITH 5YR LOOKBACK (#1) [facility] Start: 12-20-2000 Screening for osteoporosis [facility] Start: 1995 RSV patient s and/or patients aged 60+ years (1 - 1-dose 60+ series) RSV patients and/or patients aged 60+ years (1 - 1-dose 60+ series) [facility] Start: 12-20-1985 SHINGRIX VACCINE (1 of 2) SHINGRIX VACCINE (1 of 2) [facility] Start: 12-20-1985 Zoster Vaccines (1 of 2) Zoste r Vaccines (1 of 2) [facility] Start: 12-20-1980 DIABETES SCREEN DIABETES SCREEN [facility] Start: 12-20-1957 DTaP/Tdap/Td Vaccine s (1 - Tdap) DTaP/Tdap/Td Vaccines (1 - Tdap) [facility] Start: 12-20-1954 DTaP/Tdap/Td Vaccine s (1 - Tdap) DTaP/Tdap/Td Vaccines (1 - Tdap) [facility] Start: 12-20-1954 Urine microalbumin profile DTAP,TDAP,TD (1 - Tdap) [facility] Start: 12-20-1954 Urine screening for protein Diabetes: Urine Protein Screening [facility] Start: 12-20-1953 Anxiety Screening Anxiety Screening [facility] Start: 12-20-1953 Depression Screening Depression Scre ening [facility] Start: 12-20-1945 Diabetic foot examination [facility] Start: 12-20-1945 Glaucoma screening [facility] Start: 12-20-1945 Ophthalmic examinati on and evaluation Diabetes: Retinopathy Screening [facility] Start: 12-20-1945 Preventive dental service Diabetes: Dental Exam [facility] Start: 1935 Hemoglobin A1c measurement Diabetes: Hemoglobin A1C [facility] Start: 1935 Hepatitis B Vaccines (1 of 3 - 3-dose series) Hepatitis B Vaccines (1 of 3 - 3-dose series) [facility] Start: 1935 Lipid panel Lipid Panel [facility] Start: 1935 Medicare Annual Well ness Visit Medicare Annual Wellness Visit (AWV) [facility] Start: 1935 Screening for osteoporosis Bone Density Scan [facility] End: 12-26-2022 ECG 12 lead [facility] Service Area Work Phone: Comment on above: Once for 1 Occurrenc es starting 12/26/2022 until 12/26/2022 NM Heart Views W str ess and W radionuclide IV [facility] Patient Education [facility] Work Phone: RBC TRANSFUSION INSTRUCTION ([place], [place]) RBC TRANSFUSION INSTRUCTION ([place], [place]) Transfusion Administration Routine Iron deficiency 08/25/2024 8:29 AM EDT [facility] Work Phone: [facility] NEGATED: Highlighted row has been ruled out! Planned Goals not documented [facility]- Work Phone: Immunizations Immunization Date Immunization Notes Care Provider Mariana ramírez 11-21-2023 influenza virus vacc ine, unspecified formulation Mark Vazquez MD Work Phone: [facility] 12-02-2022 Flu vaccine, quadrivalent, high-dose, preservative free, age 65y+ (FLUZONE) Corbin Bryan MD Work Phone: [facility] 12-02-2022 influenza virus vacc ine, unspecified formulation Corbin Bryan MD Work Phone: [facility] Work Phone: 11-29-2022 tetanus toxoid, redu karol diphtheria toxoid, and acellular pertussis vaccine, adsorbed Corbin Bryan MD Work Phone: [facility] 12-12-2021 Fluzone High-Dose Quadrivalent 0.7 ML Intramuscular Suspension Prefilled Syringe Eitan Abbasi [facility] [place] Phone: [facility] Work Phone: 12-02-2021 Moderna COVID-19 Biv al Booster 50 MCG/0.5ML Intramuscular Suspension Eitan Abbasi [employer] Work Phone: [facility] Work Phone: 12-15-2020 Fluzone High-Dose Quadrivalent 0.7 ML Intramuscular Suspension Prefilled Syringe Eitan Price Work Phone: [facility] Work Phone: 11-29-2020 Moderna COVID-19 Vac cine 100 MCG/0.5ML Intramuscular Suspension Eitan Price Work Phone: [facility] Work Phone: 04-01-2020 Moderna COVID-19 Vac cine 100 MCG/0.5ML Intramuscular Suspension Eitan Bradshawee Work Phone: [facility] Work Phone: 03-04-2020 Moderna COVID-19 Vac cine 100 MCG/0.5ML Intramuscular Suspension Eitan Ayleen Bradshawee Work Phone: [facility] Work Phone: 11-12-2019 Fluad Quadrivalent 0 .5 ML Intramuscular Prefilled Syringe Eitan Price Work Phone: [facility] Internal [facility] Work Phone: 12-23-2018 pneumococcal polysaccharide vaccine, 23 valent Tori Roblero [employer]ANT TECHNICIAN-PHYSICAL CHEMIST Work Phone: [facility] Work Phone: 12-25-2017 influenza virus vacc ine, unspecified formulation Eitan Abbasi Brend[place]ofie Work Phone: [facility] Work Phone: Comment on above: Series: 12-25-2017 influenza, seasonal, injectable [facility] Work Phone: 12-07-[address] Eitan Price Work Phone: [facility] 12-07-2015 influenza, seasonal, injectable, preservative free Tori Roblero HY[employer] PLANT TECHNICIAN-PHYSICAL CHEMIST Work Phone: [facility] Work Phone: 11-06-2015 pneumococcal conjuga te vaccine, 13 valent Eitan Price [facility] Work Phone: Comment on above: Series: 12-30-2012 influenza, seasonal, injectable [facility] Price [facility] Work Phone: Comment on above: Series: 01-01-2012 influenza, seasonal, injectable Eitan Brendensofie [facility] Internal [facility] Work Phone: Comment on above: Series: Payers Date Payer Category Payer Medicare [id number] 2023 Self-pay [id number] 2018 Medicare UHC MEDICARE UHC MEDICARE ADVANTAGE PPO [id number] 2018-Present PPO [id number] 2018 Medicare [id number] 2018 Medicare (Managed Care) [id number] 2018 Medicare [id number] 2011 Blue Cross Blue [facility] [id number] 5 2011 Unknown 2011 Unknown [id number] 1935 Unknown [id number] .2.356 1935 Unknown [id number] [id number] .2.356 1935 Unknown [id number] 2.16840.1.414221.3.579 .2.1242 1935 Unknown [id number] 2.16840.1.784959.3.579 .2.1247 1935 Unknown [id number] 2.16.840.1.921293.3.579 .2.1247 1935 Unknown [id number] 2.16840.1.645549.3.579 .2.1247 1935 Unknown [id number] 2.16.840.1.182575.3.579 .2.124 1935 Unknown [id number] 2.840.1.708242.3.579 .2.1245 1935 Unknown [id number] 2.840.1.123333.3.579 .2.124 1935 Unknown [id number] 2.840.1.729490.3.579 .2.124 1935 Unknown [id number] 2.840.1.075287.3.579 .2.124 1935 Unknown [id number] 2.0.1.115335.3.579 .2.1244 Medicare [id number] Private Health Insurance [id number] Private Health Insurance [facility] [id number] Unknown [id number] .2.462 Unknown [id number] 2.840.1.805535.3.579 .2.462 Unknown [id number] 2.840.1.820747.3.579 .2.462 Unknown [id number] 2.840.1.372528.3.579 .2.462 Unknown [id number] 2.840.1.763935.3.579 .2.462 Unknown [id number] 2.840.1.487732.3.579 .2.462 Unknown [id number] 2.840.1.331306.3.579 .2.462 Unknown [id number] 2.840.1.698454.3.579 .2.462 Unknown [id number] 2.840.1.856829.3.579 .2.462 Social History Date Type Detail Facility Tobacco smoking status NHIS Unknown if ever smoked [facility]- Work Phone: Start: 1935 Sex Assigned At Not on file C [facility] Start: 01-01-2022 End: 11-28-2023 Exposure to SARS-CoV-2 (event) Not sure [facility] Start: 06-02-2022 End: 11-30-2022 Never a smoker Never a smoker [facility] Start: 12-06-2022 Tobacco smoking status NHIS Tobacco smoking consumption unknown [facility] Start: 06-01-2022 End: 08-18-2024 Tobacco smoking status MSIS Never smoked tobacco [facility] Start: 06-01-2022 End: 11-13-2023 Tobacco use and exposure Smokeless tobacco non-user [facility] Work Phone: Start: 06-02-2022 End: 10-07-2024 Alcohol intake Ex-drinker (finding) [facility] Work Phone: Start: 06-02-2022 End: 11-30-2022 Tobacco use panel [facility] Start: 12-31-2021 National Score (1-100), lower number is lower risk [address] [place] [address] How often to you hav e a drink containing alcohol? Never [facility] In the past 12 months, was there a time when you were not able to pay the mortgage or rent on time? No [facility] Work Phone: Start: 06-29-2016 None [facility] Start: 06-29-2016 Spouse/ Signif icant Other [facility] Start: 06-29-2016 Non-smoker [facility] Start: 1935 Sex Assigned At Female W [facility] (I/We) worried whether (my/our) food would run out before (I/we) got money to buy more. Never true [facility] Work Phone: Start: 12-04-2015 Alcohol intake Current non-dr edge inker uppers of alcohol (finding) [facility] NEGATED: Highlighted row - - [facility] Work Phone: Functional Status Date Assessment Result Facility 09-04-2024 Patient Health Questionnaire 2 item (PHQ-2) [Reported] [facility] Work Phone: NEGATED: Highlighted row Functional performance Functional status health issues are not documented Disease [facility] Work Phone: Mental Status Date Assessment Result Facility 08-18-2024 Cognitive function Level Of Cons ciousness Awake;Alert;Appropriate ;Follows Commands [facility] Work Phone: 08-17-2024 Cognitive function Voice/Name [facility] Work Phone: NEGATED: Highlighted row Cognitive function [Interpretation] Cognitive status health issues are not documented Disease [facility] Work Phone: Clinical Notes 06-23-2016 to 10-07-2024 Eitan Price MD - 10/07/2024 11:30 AM EDStefania Price MD - 09/04/2024 2:30 PM Maxx Price MD - 08/20/2024 3:00 PM Donya Anderson LPN - 08/19/2024 8:49 AM EDT Note Date & Type Note Facility 10-07-2024 History of Present illness Narrative Subjective Patient ID: Ingrid Donald is a 88 y.o. female who presents for Follow-up. HPI fu ashd, anemia, tee, hyperlipidemia, dep, htn, dm Colon 10/30 Getting stress test too soon No bleeding or black stool A little more sob and tired w/ exertion. Improved w/ blood but now a bit worse. Review of Systems As above Objective BP 124/74 Pulse 73 Ht 1.499 m (4' 11) Wt 85.7 kg (189 lb) SpO2 99% BMI 38.17 kg/m Physical Exam Gen nad, affect a bit sad Heentt eomfg, face symmetric, ncat Neck w/o la, tm, bruit Lungs clear Cv rrr nl s1, s2 Ext w/o edema Neuro grossly nonfocal Skin good color Labs reviewed Assessment/Plan Diagnoses and all orders for this visit: Anemia, unspecified type - ferrous sulfate 325 (65 Fe) mg EC tablet; Take 1 tablet by mouth once daily with breakfast. Do not crush, chew, or split. - Iron and TIBC; Future - Ferritin; Future - CBC and Auto Differential; Future ASHD (arteriosclerotic heart disease) - Comprehensive metabolic panel; Future - Lipid Panel; Future Type 2 diabetes mellitus without complication, without long-term current use of insulin - Hemoglobin A1C; Future Stage 3a chronic kidney disease (Multi) Anxiety Hypertension, unspecified type Gastroesophageal reflux disease without esophagitis Status post coronary artery stent placement Dyslipidemia Fu mid November w/ labs Add iron Cardio doing stress test Gi doing ? Egd, colon documented in this encounter [facility] Work Phone: 09-04-2024 History of Present illness Narrative Subjective Patient ID: Ingrid Donald is a 88 y.o. female who presents for Follow-up (Amlodipine and Losartan needs refilled. ). HPI fu ashd, anemia, tee, hyperlipidemia, dep, htn, dm Emotionally doing reasonably well No bleeding or black stool More energy. Less sob after transfusion Review of Systems As above Objective BP 132/72 Pulse 75 Ht (!) 1.499 m (4' 11) Wt 83.9 kg (185 lb) SpO2 100% BMI 37.37 kg/m Physical Exam Gen nad, affect wnl Heentt eomfg, face symmetric, ncat Neck w/o la, tm, bruit Lungs clear Cv rrr nl s1, s2 Ext w/o edema Neuro grossly nonfocal Skin good color Labs reviewed Assessment/Plan Diagnoses and all orders for this visit: Anemia, unspecified type - CBC and Auto Differential; Future - Iron and TIBC; Future - Ferritin; Future - Serum Protein Electrophoresis; Future - Occult Blood, Stool; Future - Reticulocytes; Future - Vitamin B12; Future - Folate; Future - Referral to Gastroenterology; Future Essential hypertension - losartan (Cozaar) 100 mg tablet; Take 1 tablet (100 mg) by mouth once daily. - amLODIPine (Norvasc) 5 mg tablet; Take 1 tablet (5 mg) by mouth once daily. Other fatigue - Tsh With Reflex To Free T4 If Abnormal; Future ASHD (arteriosclerotic heart disease) - atorvastatin (Lipitor) 80 mg tablet; Take 0.5 tablets (40 mg) by mouth once daily. Fu 4 weeks w/ labs documented in this encounter [facility] Work Phone: 08-20-2024 History of Present illness Narrative Subjective Reason for Visit: Ingrid Donald is an 88 y.o. female here for a Medicare Wellness visit. Past Medical, Surgical, and Family History reviewed and updated in chart. Reviewed all medications by prescribing practitioner or clinical pharmacist (such as prescriptions, OTCs, herbal therapies and supplements) and documented in the medical record. HPI Patient Care Team: Eitan Price MD as PCP - General Review of Systems Objective Vitals: BP 130/80 Pulse (!) 42 SpO2 100% Physical Exam Assessment & Plan Routine general medical examination at health care facility Orders: 1 Year Follow Up In Primary Care - Wellness Exam; Future documented in this encounter [facility] Work Phone: 08-19-2024 Note HNO ID: [id number] Author: DONYA FARIA LPN Service: ? Author Type: LICENSED NURSE Type: Progress Notes Filed: 08/19/2024 08:58 Note Text: Injection prepared per order for Dr. Gibbs and handed directly to him. Injection site: asaf knees Donya Faria LPN [facility] 08-19-2024 History of Present illness Narrative Injection prepared per order for Dr. Gibbs and handed directly to him. Injection site: asaf knees Donya Faria LPN Associated Order(s): Large Joint Arthro/Inj: bilateral knee joints Post-Procedure Diagnose(s): Primary osteoarthritis of both knees Chief Complaint: Bilateral knee pain Consuting Physician: Self History: Ingrid is a 88 year old female who presents with a longstanding history of bilateral knee pain. She denies any traumatic history but more of an insidious onset of pain. The pain is located along the medial region of the knee. The pain is [...] current treatment for chronic pain conditions CARDIOVASCULAR: atrial fibrillation MSK: Negative for joint pain, swelling, back [...] extension of the bilateral knee(s) and lacks 5 degrees of flexion as well. She has [...] cap refill are seen. Gross sensation intact. Assessment: Primary osteoarthritis of both knees (primary encounter diagnosis) Type 2 diabetes mellitus without complication, without long-term current use of insulin [facility]) Atrial fibrillation, unspecified type ([facility]) Plan: The patient understands the diagnosis, treatment options and indications for both operative and non-operative, their associated risks, complications, benefits, outcomes, rehabilitation and failures. It was decided to proceed with a nonoperative treatment option consisting of NSAID s and a physical therapy program emphasizing quadricep strengthening, stretching and ROM. Injection performed as detailed below: Large Joint Arthro/Inj: bilateral knee joints 08/19/2024 8:45 AM The procedure site was prepped in the usual sterile fashion. Site: bilateral knee joints Medications (Right): 40 mg methylPREDNISolone acetate 40 mg/mL Medications (Left): 40 mg methylPREDNISolone acetate 40 mg/mL Anesthetics (Right): 5 mL lidocaine [...] Mark Vazquez MD documented in this encounter [facility] 08-19-2024 Note HNO ID: [id number] Author: MARK VAZQUEZ MD Service: ? Author Type: Physician Type: Progress Notes Filed: 08/19/2024 08:58 Note Text: Chief Complaint: Bilateral knee pain Consuting Physician: Self History: Ingrid is a 88 year old female who presents with a longstanding history of bilateral knee pain. She denies any traumatic history but more of an insidious onset of pain. The pain is located along the medial region of the knee. The pain is [...] current treatment for chronic pain conditions CARDIOVASCULAR: atrial fibrillation MSK: Negative for joint pain, swelling, back pain, muscle pain. SKIN: Negative for lesions, rash, itching, metal sensitivity NEURO: Negative for seizure, trauma, numbness/tingling of extremities. ENDOCRINE: Diabetes Type 2 HEMATOLOGY: Negative for excessive bleeding, clots, bleeding disorders. Physical Examination: Perdita is alert and oriented and in no acute distress. She exhibits an antalgic gait. She has evidence of (varus/ valgus) malalignment of her bilateral knee(s). Skin is intact bilaterally. The patient lacks 5 degrees of full extension of the bilateral knee(s) and lacks 5 degrees of flexion as well. She has [...] cap refill are seen. Gross sensation intact. Assessment: Primary osteoarthritis of both knees (primary encounter diagnosis) Type 2 diabetes mellitus without complication, without long-term current use of insulin ([facility]) Atrial fibrillation, unspecified type (hcc) Plan: The patient understands the diagnosis, treatment options and indications for both operative and non-operative, their associated risks, complications, benefits, outcomes, rehabilitation and failures. It was decided to proceed with a nonoperative treatment option consisting of NSAID?s and a physical therapy program emphasizing quadricep strengthening, stretching and ROM. Injection performed as detailed below: Large Joint Arthro/Inj: bilateral knee joints 08/19/2024 8:45 AM The procedure site was prepped in the usual sterile fashion. Site: bilateral knee joints Medications (Right): 40 mg methylPREDNISolone acetate 40 mg/mL Medications (Left): 40 mg methylPREDNISolone acetate 40 mg/mL Anesthetics (Right): 5 mL lidocaine [...] follow-up in prn basis. Mark Vazquez MD [facility] 08-18-2024 Discharge summary [facility] 08-18-2024 Discharge summary Note Date/Time August 18, 2024 3:59pm [facility] Medical Records Department [address] [place] [address] Emergency Department Summary 08/18/24 MR#: [id number] Acct: [id number] Name: INGRID DONALD Rep #:[id number] : 1935 88 From: Kal Fan MD [...] symptoms. Today, she states she feels well. [facility] Medical History Subdural hematoma, acute Coronary artery disease Aortic stenosis Anemia Paroxysmal atrial fibrillation New onset atrial fibrillation Dyspnea on exertion Atherosclerotic heart disease [place] coronary artery w/angina pectoris Type 2 diabetes mellitus without complications Hematoma of groin Obesity GERD (gastroesophageal reflux disease) Hiatal hernia History of colon cancer Asthma Depression Atherosclerotic heart disease of [place] coronary artery without angina pectoris Hypertension Nonsustained [...] % (Auto) 62.9 Lymph % (Auto) 20.8 [place] % (Auto) 11.4 H Eos % (Auto) [...] you on iron orally again. Print Language: Ghanaian Disposition Disposition: Home, Self Care What to do if you have Problems For any increased pain, shortness of breath, bleeding, nausea or vomiting, chestpain, or any unexpected problems, contact your Primary Care Provider. Call [facility] ([phone]) or report to the closest Emergency Room. Call 911 if necessary. 08/18/24 1559 <Electronically signed by Kal Fan MD> Cosigner Signature (if applicable): CC: Dr. Eitan Price MD ~ Signed [facility] Work Phone: 1([phone]) 329-202507-13-2025 Radiology Diagnostic study note [facility] Imaging Services [address] [place] [id number] Chest 1 View (Portable) MR#: [id number] Acct: [id number] Name: INGRID DONALD Rep #: [id number] : 1935 F 88 From: Petra Obregon MD PCP: Dr. Eitan Price MD Status: PRE ER Study:Chest 1 View (Portable) Date of Exam: 08/17/24 Exam# [id number] Ordering Dr: Teena Rehman DO PROCEDURE: CHEST [...] infection. 2. Probable hiatal hernia. Reading Location: [id number] CC: Dr. Eitan Price MD; Dr. Shakeel Rehman DO ~ Shop Director: Signed [facility]07-13-2025 Hospital Discharge instructionsAdditional Instructions Return to the emergency department with increasing shortness of breath, chest pain, black stool, new or worsening symptoms. Follow-up with your primary care provider as scheduled on Sunday. You can tell him that your hemoglobin is 7.5 both yesterday and today. He may need to start you on iron orally again.[facility] Work Phone: 1(667) 437-418310-23-2024 History of Present illness Narrative* Eitan Price MD - 11/28/2023 10:00 AM EDT [...] 6 mos w/ labs [facility] Work Phone: [phone] 390-309710-08-2024 NoteHNO ID: [id number] Author: DONYA FARIA LPN Service: ? Author Type: LICENSED NURSE Type: Progress Notes Filed: 11/13/2023 10:41 Note Text: Injection prepared per order for Dr. Vazquez' and handed directly to him. Injection site: asaf knees [facility] History of Present illness Narrative* Donya Faria LPN - 11/13/2023 9:46 AM EDT Injection prepared per order for Dr. Gibbs and handed directly to him. Injection site: asaf knees Donya Faria LPN * Mark Vazquez [...] basis. Mark Vazquez MD [facility]24 NoteHNO ID: [id number] Author: MARK VAZQUEZ MD Service: ? Author [...] for follow-up in prn basis. Mark Vazquez, [facility]08-28-2024 History of Present illness Narrative* Eitan [...] labs If not, ov [facility] Work Phone: 1([phone] 170-189905-20-2024 History of Present illness Narrative* Eitan Price [...] 3 mos w/ labsb documented in [facility] Work Phone: 1([phone]) 494-633511-21-2023 History of Present illness Narrative* Erica Chowdary Jay, HYDRO PLANT TECHNICIAN-PHYSICAL CHEMIST - 12/26/2022 10:30 AM EST Ingrid Donald is here today in follow up for SDH and to review images. To review, she was initially evaluated on 11/30/2022, during admission at [facility] after mechanical fall off curb, falling onto face. She was on Eliquis at the time, for Afib. She denied headache at the time and reported that she lived in [place], [place], and was in the area for [...] 15 MIN VINNY Berg documented [facility] Work Phone: 1([phone]) 278-615811-21-2023 Instructions* Patient Instructions* VINNY Berg - 12/26/2022 10:30 AM EST Your subdural hematoma has resolved. You may restart your blood thinners today. documented in [facility] Work Phone: [phone] History of Present illness Narrative* Eitan Price [...] visit: Subdural hemorrhage (CMS/HCC) Nonsustained ventricular tachycardia ([facility]/HCC) Non-ST elevation (NSTEMI) myocardial infarction ([facility]/HCC) Type 2 diabetes mellitus without complication, without long-term current use of insulin ([facility]/HCC) Paroxysmal atrial fibrillation ([facility]/HCC) Hypertension, unspecified type Class 2 severe obesity due to excess calories with serious comorbidity and body mass index (BMI) of37.0 to 37.9 in adult ([facility]/HCC) Hyperlipidemia, unspecified hyperlipidemia type Stage 3a chronic kidney disease ([facility]/HCC) CKD (chronic kidney disease), stage II ASHD (arteriosclerotic heart disease) Acute non-ST elevation myocardial infarction (NSTEMI) ([facility]) Ns 12/26 Cardio r/s amlodipine R/s citalopram Off carvedilol, asa, eliquis, furosemide, bupropion documented in this [facility] Work Phone: 1([phone]) 813-400910-28-2023 History of Present illness Narrative* Harmeet Sweet [...] perspective and can follow-up with her established body shop mechanic in [place], [place]. 2. Hypertension: Blood pressure is better following IV hydralazine and the patient is now on nifedipine. December 02, 2022 Patient is fairly stable from cardiac standpoint. Bradycardia has resolved. Continue with nifedipine and losartan for blood pressure control. HoldingAV evi blocking agents for now. I will defer the decision as to when to resume Eliquis to her outpatient body shop mechanic in [place] that patient agrees to follow-up with in [...] brain 11/29/2022 at 4:24 p.m.. ACCESSION NUMBER(S): [id number] ORDERING CLINICIAN: FLORENCE BORGES TECHNIQUE: Axial noncontrast [...] Michael Sharp 11/29/2022 11:18 PM Dictation workstation: [id number] CT head W O contrast trauma protocol, CT cervical spine wo IV contrast, CT maxillofacial bones wo IV contrast Narrative: Interpreted By: Forrest Drew, STUDY: CT FACIAL BONES WO IV CONTRAST; CT HEAD W/O CONTRAST TRAUMA PROTOCOL; CT CERVICAL SPINE WO IV CONTRAST; 11/29/2022 4:37 pm INDICATION: Signs/Symptoms:fall, R frontal bone ecchymosis; Signs/Symptoms:Fall, right forehead hematoma, on Eliquis. COMPARISON: None. ACCESSION NUMBER(S): [id number]; [id number]; [id number] ORDERING CLINICIAN: CORBIN BRYAN; FLORENCE BORGES TECHNIQUE: [...] Forrest Drew 11/29/2022 4:54 PM Dictation workstation: [id number] Physical Exam Vitals reviewed. Constitutional: General: She [...] DO - 12/01/2022 9:52 PM EDT Ingrid Donald is a 86 [...] curb. She has established cardiology care in [facility] and has had no recent cardiac [...] perspective and can follow-up with her established body shop mechanic in [place], [place]. 2. Hypertension: Blood pressure is better [...] IMM. Rita Bowen RN * Viki Edmond, HYDRO PLANT TECHNICIAN-PHYSICAL CHEMIST - 12/01/2022 8:06 AM EDT Ingrid Donald [...] cancer, CHF, and MDD who presented to [facility] ED on 11/29 as an HIA following a mechanical fall and was found to have a SDH. Pt admitted to ICU under trauma surgery with consult to NSGY, criminal lawyer, and cardiology. List of Injuries: SDH, 2.8 [...] be discussed with the attending surgeon, Dr. Bennett. I spent 30 minutes in the professional and overall care of this patient. VINNY Dewitt * Bobby Kolb, PT - 11/30/2022 4:27 [...] Prior Function Per Pt/Caregiver Report Level of [place]: Independent with ADLs and functional transfers, Independent [...] 1: (50 ft) Extremity/Trunk Assessments: Outcome Measures: [facility] Basic Mobility Turning from your back to [...] Education Comments No comments found. * Jose Bennett MD - 11/30/2022 12:12 PM EDT Ingrid [...] brain 11/29/2022 at 4:24 p.m.. ACCESSION NUMBER(S): [id number] ORDERING CLINICIAN: FLORENCE BORGES TECHNIQUE: Axial noncontrast [...] Michael Sharp 11/29/2022 11:18 PM Dictation workstation: [id number] Assessment/Plan Principal Problem: Subdural hemorrhage (CMS/HCC) Patient is a 86 y.o. female with PMH significant for HTN, HLD, Afib, CAD/NSTEMI s/p stents, chronicanemia, GERD, DMT2, mitral regurgitation, colon cancer, CHF, and MDD who presented to [facility] ED on 11/29 as an HIA following a mechanical fall and was found to have a SDH. Pt admitted to ICU under trauma surgery with consult to NSGY, criminal lawyer, and cardiology. List of Injuries: SDH, 2.8 [...] be discussed with the attending surgeon, Dr. Bennett. I spent 35 minutes in the professional [...] input appreciated. Continue current management * Debo Viramontes Sofi - 11/29/2022 7:39 PM EDT Care transitions assessment completed via bedside with patient. TCC introduced self and explained role. Demographics verified. Patient from home with spouse. Patient is primary caregiver for spouse. Patient states son and DIL are with spouse now. 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 Denies use of assistive devices. Denies SW [...] living? No Debo Farah RN ED TCC * Celi Duarte CPhT - 11/29/2022 4:58 PM EDT Pharmacy Medication History Review Ingrid Donald is a 86 y.o. female admitted for No Principal Problem: There is no principal problem currently on the Problem List. Please update the Problem List and refresh.. Pharmacy reviewed the patient's nrsvu-[id number] medications and allergies for accuracy. The list below reflectives the updated DIVINITY TEACHER list. Please review each medication in order reconciliation for additional clarification and justification. (Not in a hospital admission) The list below reflectives the updated allergy list. Please review each documented allergy for additional clarification and justification. Allergies Reviewed by Celi Duarte CPhT on 11/29/2022 Severity Reactions Comments Morphine Medium Itching Ibuprofen Low Itching Below are additional concerns with the patient's DIVINITY TEACHER list. See DIVINITY TEACHER med list Celi Duarte CPhT documented in this [facility] Work Phone: [phone]) [phone] Hospital Note* Hospital Course - Viki Edmond APRN-LOS - 12/02/2022 10:35 AM EDT Patient is a 86 y.o. female with PMH significant for HTN, HLD, Afib, CAD/NSTEMI s/p stents, chronicanemia, GERD, DMT2, mitral regurgitation, colon cancer, CHF, and MDD who presented to [facility] ED on 11/29 as an HIA following a mechanical fall and was found to have a SDH. Pt admitted to ICU under trauma surgery with consult to NSGY, criminal lawyer, and cardiology. List of Injuries: SDH, 2.8 [...] with recommendationsfor close follow up with outpt body shop mechanic. Patient will hold home Eliquis until cleared by NSGY at follow up. Evaluated by PT/OT, no new needs identified. [facility] Work Phone: [phone]) 215-270610-28-2023 Hospital course Narrative* VINNY Dewitt - 12/02/2022 10:35 AM EDT Discharge Diagnosis Subdural hemorrhage (CMS/HCC) Issues Requiring Follow-Up SDH, HTN, bradycardia Test Results Pending At Discharge Pending Labs No current pending labs. Hospital Course Patient is a 86 y.o. female with PMH significant for HTN, HLD, Afib, CAD/NSTEMI s/p stents, chronicanemia, GERD, DMT2, mitral regurgitation, colon cancer, CHF, and MDD who presented to [facility] ED on 11/29 as an HIA following a mechanical fall and was found to have a SDH. Pt admitted to ICU under trauma surgery with consult to NSGY, criminal lawyer, and cardiology. List of Injuries: SDH, 2.8 [...] with recommendationsfor close follow up with outpt body shop mechanic. Patient will hold home Eliquis until cleared [...] Center 12/13/2022 3:00 PM Eitan Price MD [id number] [facility] VINNY Dewitt documented in this [facility] Work Phone: [phone]) 247-305410-28-2023 Miscellaneous Notes* Hospital Course - VINNY Dewitt - 12/02/2022 10:35 AM EDT Patient is a 86 y.o. female with PMH significant for HTN, HLD, Afib, CAD/NSTEMI s/p stents, chronicanemia, GERD, DMT2, mitral regurgitation, colon cancer, CHF, and MDD who presented to [facility] ED on 11/29 as an HIA following a mechanical fall and was found to have a SDH. Pt admitted to ICU under trauma surgery with consult to NSGY, criminal lawyer, and cardiology. List of Injuries: SDH, 2.8 [...] with recommendationsfor close follow up with outpt body shop mechanic. Patient will hold home Eliquis until cleared [...] these barriers include . [facility] Work Phone: 1([phone]) 280-469010-28-2023 Hospital Discharge instructions* Discharge Instructions* VINNY Dewitt - 12/02/2022 10:29 AM EDT Do not take your blood thinner until you follow up with neurosurgery in 2-3 weeks. documented in [facility] Work Phone: [phone]) 481-984910-28-2023 Plan of care note* Care Plan - [...] for the shift include Maintain blood pressure. T [facility]10-27-[facility] Consult note* Leobardo Garrison DO - 12/01/2022 5:41 PM EDT Consults Reason For Consult Medical management, HTN History Of Present Illness Perdined day is a 86 y.o. female presenting with [...] medical history of Acute renal failure (ARF) ([facility]), Anemia, Congestive heart failure (CHF) ([facility]), Depression, Diverticulitis of large intestine without perforation or abscess without bleeding (12/14/2015), MELLO (dyspnea on exertion), Essential (primary) hypertension (12/16/2012), Hyperlipidemia, unspecified (12/16/2012), Localized edema (09/07/2021), Malignant neoplasm of colon, unspecified ([facility]), Obstructive sleep apnea (adult) (pediatric), Other forms [...] 11/30/2022 Assessment/Plan Medications prior to hospitalization 1.) Mech fall with head trauma and [...] proph contraindicated with SDH Leobardo Garrison DO [facility] Work Phone: [phone]) 696-871610-27-2023 Consult note* Leobardo Garrison DO - 12/01/2022 [...] medical history of Acute renal failure (ARF) ([facility]), Anemia, Congestive heart failure (CHF) ([facility]), Depression, Diverticulitis of large intestine without perforation [...] 11/30/2022 Assessment/Plan Medications prior to hospitalization 1.) [facility] fall with head trauma and SDH - [...] Orders (From admission, onward) Start Ordered 11/30/22 050 Adult diet Regular Diet effective now Question: [...] Nutritional Needs: Total Energy Estimated Needs (kCal): (9420-8022) Method for Estimating Needs: 26-30 malvin kg [...] Starr DO Consult ordered by: Mariah Burgos APRN-PHYSICAL CHEMIST Reason for consult: Bradycardia History Of Present [...] curb. She has established cardiology care in [facility] and has had no recent cardiac [...] tablet 975 mg 975 mg oral q8h [facility] Sintia Hernandez PA-C 975 mg at [...] The patient has established cardiology care in [facility] and is going to follow-up after hospital discharge. Fatuma Starr DO * Fatuma Leal MD - 11/30/2022 5:40 AM EDTAssociated Order(s): IP CONSULT TO NEUROSURGERY I have reviewed and discussed this patient with the advanced practitioner. I have personally reviewed all the available imaging studies. I agree with the assessment and the plan. Fatuma Leal MD, FAANS, FACS Board Certified Neurosurgeon [facility] Patient Admitting Representative of Neurological Surgery [facility] [employer] Office: Reason For Consult SDH History Of Present Illness Ingrid Donald is a 86 y.o. female presenting to [facility] ED after mechanical fall (stepped off curb and fell onto face). She was on anticoagulant (Eliquis for Afib). She admitted to mild headache upon arrival to ED. CT Head imaging reviewed and demonstrates left falx subdural hematoma (SDH). Repeat imaging demonstrates stability of SDH. She currently denies headache, vision changes, seizure activity, nausea, weakness, cognitive changes. She states she lives in [place], [place], and was in [place] for a meeting. Past Medical History She has a past medical history of Acute renal failure (ARF) ([facility]), Anemia, Congestive heart failure (CHF) ([facility]), Depression, Diverticulitis of large intestine without perforation or abscess without bleeding (12/14/2015), MELLO (dyspnea on exertion), Essential (primary) hypertension (12/16/2012), Hyperlipidemia, unspecified (12/16/2012), Localized edema (09/07/2021), Malignant neoplasm of colon, unspecified ([facility]), Obstructive sleep apnea (adult) (pediatric), Other forms [...] with repeat CT Head at facility near [place] prior to visit. Discussed with patient who is agreeable with plan. I spent > 35 minutes in the professional and overall care of this patient. Erica Thompson APRN-PHYSICAL CHEMIST * Brayden Ragsdale MD - 11/29/2022 10:53 PM EDT Consults [facility] Pulmonary and Critical Care Medicine History and Physical Subjective Patient is a 86 y.o. female admitted on 11/29/2022 2:27 PM with chief complaint of mechanical fall. HPI: Patient is an 86-year-old female with a past medical history of CHF, diverticulitis, CKD, hypertension, hyperlipidemia, colon cancer (in remission), and atrial fibrillation on AC who presented to the via EMS after suffering a mechanical fall after eating dinner and stepping down from a curb at a restaurant. Critical care team was consulted for comanagement of patient while she is in the ICU for subdural hematoma. Per patient she was out to dinner earlier today with her awqmafpj-ic-ang. They completed their mealand were walking out [...] Denies loss of consciousness. States that her wkzguqcr-it-rru called EMS. Denies any visual changes, nausea, [...] [facility], [facility] [...] Urinary Catheter Female (Active) Placement Date/Time: 11/29/22 190 Hand Hygiene Completed: Yes External Catheter Type: [...] data in the 24 hours ending 11/29/22 7570 Physical exam: Physical Exam Lab/Radiology/Diagnostic Review: Results [...] Ragsdale MD Pulmonary & Critical Care Attending [id number] Please excuse and typographical or unwanted errors with in this documentation as voice recognition software was used to dictate this note. documented in this [facility] Work Phone: [phone]) 456-861510-27-2023 Plan of care note* Care Plan - [...] education by end of shift Outcome: Progressing [facility] Work Phone: [phone]) 338-755610-26-2023 Consult note* Negin Wing, RD - 11/30/2022 [...] Nutritional Needs: Total Energy Estimated Needs (kCal): (3301-0391) Method for Estimating Needs: 26-30 malvin kg [...] 3-8 days Follow up Comment: 12/07 MZ [facility]10-26-2023 Plan of care note* Care Plan - Bobby Jiménez DO - 11/30/2022 12:41 PM EDT Ingrid Donald is stable and no longer requiring ICU care. She is under the care of general surgery and is to be transferred to the medical floor for further management. We will be signing off from her care. Bobby Jiménez DO, PhD Internal Medicine PGY1 [facility] Work Phone: [phone]) [phone] Consult note* Fatuma Starr DO - 11/30/2022 12:09 PM EDTAssociated Order(s): Inpatient consult to Cardiology Inpatient consult to Cardiology Consult performed by: Fatuma Starr DO Consult ordered by: Mariah Burgos, REN-PHYSICAL CHEMIST Reason for consult: Bradycardia History Of Present [...] curb. She has established cardiology care in [facility] and has had no recent cardiac [...] tablet 975 mg 975 mg oral q8h [facility] Sintia Hernandez PA-C 975 mg at 11/30/22 [...] The patient has established cardiology care in [facility] and is going to follow-up after hospital discharge. Fatuma Starr DO [facility] Work Phone: [phone] Plan of care note* Care Plan - [...] Recommendations to address these barriers include . [facility] Work Phone: [phone] Consult note* Fatuma Leal MD - 11/30/2022 5:40 AM EDTAssociated Order(s): IP CONSULT TO NEUROSURGERY I have reviewed and discussed this patient with the advanced practitioner. I have personally reviewed all the available imaging studies. I agree with the assessment and the plan. Fatuma Leal MD, FAANS, FACS Board Certified Neurosurgeon [facility] Patient Admitting Representative of Neurological Surgery [facility] [employer] Office: Reason For Consult SDH History Of Present Illness Ingrid Donald is a 86 y.o. female presenting to [facility] ED after mechanical fall (stepped off curb and fell onto face). She was on anticoagulant (Eliquis for Afib). She admitted to mild headache upon arrival to ED. CT Head imaging reviewed and demonstrates left falx subdural hematoma (SDH). Repeat imaging demonstrates stability of SDH. She currently denies headache, vision changes, seizure activity, nausea, weakness, cognitive changes. She states she lives in [place], [place], and was in [place] for a meeting. Past Medical History She has a past medical history of Acute renal failure (ARF) ([facility]), Anemia, Congestive heart failure (CHF) ([facility]), Depression, Diverticulitis of large intestine without perforation or abscess without bleeding (12/14/2015), MELLO (dyspnea on exertion), Essential (primary) hypertension (12/16/2012), Hyperlipidemia, unspecified (12/16/2012), Localized edema (09/07/2021), Malignant neoplasm of colon, unspecified ([facility]), Obstructive sleep apnea (adult) (pediatric), Other forms [...] with repeat CT Head at facility near [place] prior to visit. Discussed with patient who is agreeable with plan. I spent > 35 minutes in the professional and overall care of this patient. Erica Thompson, REN-PHYSICAL CHEMIST [facility] Work Phone: [phone]) [phone] Consult note* Brayden Ragsdale MD - 11/29/2022 10:53 PM EDT Consults [facility] Pulmonary and Critical Care Medicine History [...] out to dinner earlier today with her inuyiums-qm-adk. They completed their mealand were walking out [...] Denies loss of consciousness. States that her bokcmjgh-mv-[id number] called EMS. Denies any visual changes, nausea, [...] [facility] [...] History: Diagnosis Date Acute renal failure (ARF) ([facility]) Anemia Congestive heart failure (CHF) ([facility]) Depression Diverticulitis of large intestine without perforation or abscess without bleeding 12/14/2015 Diverticulitis of large intestine without perforation or abscess without bleeding MELLO (dyspnea on exertion) Essential (primary) hypertension 12/16/2012 Benign essential hypertension Hyperlipidemia, unspecified 12/16/2012 Hyperlipidemia Localized edema 09/07/2021 Lower extremity edema Malignant neoplasm of colon, unspecified ([facility]) Colon cancer Obstructive sleep apnea (adult) (pediatric) [...] per HPI. Objective Vitals: Most Recent: Vitals: 11/29/22 2145 BP: Pulse: 62 Resp: 21 Temp: SpO2: [...] data in the 24 hours ending 11/29/22 9068 Physical exam: Physical Exam Lab/Radiology/Diagnostic Review: Results [...] Ragsdale MD Pulmonary & Critical Care Attending P:[id number] Please excuse and typographical or unwanted errors with in this documentation as voice recognition software was used to dictate this note. [facility] Work Phone: [phone]) 197-894410-25-2023 History and physical note* Jose Bennett MD - 11/29/2022 5:56 PM EDT Trauma [...] extremity edema Malignant neoplasm of colon, unspecified ([facility]) Colon cancer Obstructive sleep apnea (adult) [...] right forehead hematoma, on Eliquis. COMPARISON: None. [facility] ESSION NUMBER(S): [id number]; [id number]; [id number] ORDERING CLINICIAN: CORBIN BORGES TECHNIQUE: Noncontrast axial [...] Forrest Drew 11/29/2022 4:54 PM Dictation workstation: [id number] CT cervical spine wo IV contrast Result Date: 11/29/2022 Interpreted By: Forrest Drew, STUDY: CT FACIAL BONES WO IV CONTRAST; CT HEAD W/O CONTRAST TRAUMA PROTOCOL; CT CERVICAL SPINE WO IV CONTRAST; 11/29/2022 4:37 pm INDICATION: Signs/Symptoms:fall, R frontal bone ecchymosis; Signs/Symptoms:Fall, right forehead hematoma, on Eliquis. COMPARISON: None. [facility] ESSION NUMBER(S): [id number]; [id number]; [id number] ORDERING CLINICIAN: CORBIN BRYAN; FLORENCE BORGES TECHNIQUE: [...] Forrest Drew 11/29/2022 4:54 PM Dictation workstation: [id number] CT maxillofacial bones wo IV contrast Result Date: 11/29/2022 Interpreted By: Forrest Drew, STUDY: CT FACIAL BONES WO IV CONTRAST; CT HEAD W/O CONTRAST TRAUMA PROTOCOL; CT CERVICAL SPINE WO IV CONTRAST; 11/29/2022 4:37 pm INDICATION: Signs/Symptoms:fall, R frontal bone ecchymosis; Signs/Symptoms:Fall, right forehead hematoma, on Eliquis. COMPARISON: None. [facility] ESSION NUMBER(S): [id number]; [id number]; [id number] ORDERING CLINICIAN: CORBIN BRYAN; FLORENCE BORGES TECHNIQUE: [...] collection, mass effect, or midline shift. The uerña/white matter junction is preserved. Hypoattenuation of periventricular [...] Forrest Drew 11/29/2022 4:54 PM Dictation workstation: [id number] Assessment /Plan Patient is a 86 y.o. female with PMH significant for HTN, HLD, Afib, CAD/NSTEMI s/p stents, chronicanemia, GERD, DMT2, mitral regurgitation, colon cancer, CHF, and MDD who presented to [facility] ED on 11/29 as an HIA [...] neurochecks. Patient discussed with attending surgeon, Dr. Bennett. Sintia Hernandez PA-C I saw and evaluated [...] History and findings otherwise are as above. [facility] Work Phone: [phone]) 741-318410-25-2023 History and physical note* Jose Bennett MD - 11/29/2022 5:56 PM EDT Trauma [...] right forehead hematoma, on Eliquis. COMPARISON: None. [facility] ESSION NUMBER(S): [id number]; [id number]; [id number] ORDERING CLINICIAN: CORBIN BORGES TECHNIQUE: Noncontrast axial [...] Forrest Drew 11/29/2022 4:54 PM Dictation workstation: [id number] CT cervical spine wo IV contrast Result Date: 11/29/2022 Interpreted By: Forrest Drew, STUDY: CT FACIAL BONES WO IV CONTRAST; CT HEAD W/O CONTRAST TRAUMA PROTOCOL; CT CERVICAL SPINE WO IV CONTRAST; 11/29/2022 4:37 pm INDICATION: Signs/Symptoms:fall, R frontal bone ecchymosis; Signs/Symptoms:Fall, right forehead hematoma, on Eliquis. COMPARISON: None. [facility] ESSION NUMBER(S): [id number]; [id number]; [id number] ORDERING CLINICIAN: CORBIN BORGES TECHNIQUE: Noncontrast axial [...] Forrest Drew 11/29/2022 4:54 PM Dictation workstation: [id number] CT maxillofacial bones wo IV contrast Result Date: 11/29/2022 Interpreted By: Forrest Drew, STUDY: CT FACIAL BONES WO IV CONTRAST; CT HEAD W/O CONTRAST TRAUMA PROTOCOL; CT CERVICAL SPINE WO IV CONTRAST; 11/29/2022 4:37 pm INDICATION: Signs/Symptoms:fall, R frontal bone ecchymosis; Signs/Symptoms:Fall, right forehead hematoma, on Eliquis. COMPARISON: None. [facility] ESSION NUMBER(S): [id number]; [id number]; [id number] ORDERING CLINICIAN: CORBIN BORGES TECHNIQUE: Noncontrast axial [...] Forrest Drew 11/29/2022 4:54 PM Dictation workstation: [id number] Assessment /Plan Patient is a 86 y.o. female with PMH significant for HTN, HLD, Afib, CAD/NSTEMI s/p stents, chronicanemia, GERD, DMT2, mitral regurgitation, colon cancer, CHF, and MDD who presented to [facility] ED on 11/29 as an HIA [...] neurochecks. Patient discussed with attending surgeon, Dr. Bennett. Sintia Hernandez PA-C I saw and evaluated [...] otherwise are as above. documented in this [facility] Work Phone: [phone] Emergency department Note* Florence Borges DO - 11/29/2022 2:20 PM EDT HPI No chief complaint on file. Patient is an 86-year-old female with atrial fibrillation on Eliquis, hypertension, hyperlipidemia,diabetes presents the emergency department after mechanical fall. She was walking of her rash on her namhtfvx-mp-qtu. She stepped down off the curb and fell forward, striking the right side of her head where there is now a hematoma. She does have a small skin tear on her right elbow. EMS was calledand patient was brought to the emergency department. She did not have any loss of consciousness, nausea or vomiting. Her cahcrjtv-rp-bpk is here with her reports that she [...] History: Diagnosis Date Acute renal failure (ARF) ([facility]) Anemia Congestive heart failure (CHF) ([facility]) Depression Diverticulitis of large intestine without perforation or abscess without bleeding 12/14/2015 Diverticulitis of large intestine without perforation or abscess without bleeding MELLO (dyspnea on exertion) Essential (primary) hypertension 12/16/2012 Benign essential hypertension Hyperlipidemia, unspecified 12/16/2012 Hyperlipidemia Localized edema 09/07/2021 Lower extremity edema Malignant neoplasm of colon, unspecified ([facility]) Colon cancer Obstructive sleep apnea (adult) (pediatric) [...] Forrest Drew 11/29/2022 4:54 PM Dictation workstation: [id number] CT cervical spine wo IV contrast Final [...] Forrest Drew 11/29/2022 4:54 PM Dictation workstation: [id number] CT maxillofacial bones wo IV contrast Final [...] Forrest Drew 11/29/2022 4:54 PM Dictation workstation: [id number] Patient is reevaluated. GCS 15, awake and alert, no distress. Findings discussed with the patient. She require admission and she is agreeable with this. Dr. Leal contacted. He reviewed the images. The patient can stay here at [facility]. Repeat CT scan in 6 hours. Systolic blood pressure goal below 160. No Kcentra. Patient to be admitted to trauma surgery in the ICU. Contacted Dr. Bennett and report is given Mag[facility] trauma HORACIO. Labs drawn per request. Florence Borges DO, PGY 3 Emergency Medicine Resident Amount and/or Complexity of Data Reviewed Radiology: ordered and independent interpretation performed. Procedure Procedures Florence Borges DO Resident 11/29/221729 Associated attestation - Corbin Bryan MD - [...] Nontoxic-appearing. Hemodynamically stable. Primary survey intact. Nursing place change roof bolter after initial evaluation. Unfortunately, was not communicated [...] Kcentra at this time. [facility] Work Phone: [phone] Physician Emergency department Note* Florence Borges DO - 11/29/2022 2:20 PM EDT HPI No chief complaint on file. Patient is an 86-year-old female with atrial fibrillation on Eliquis, hypertension, hyperlipidemia,diabetes presents the emergency department after mechanical fall. She was walking of her rash on her jxoijyst-xg-ylz. She stepped down off the curb and fell forward, striking the right side of her head where there is now a hematoma. She does have a small skin tear on her right elbow. EMS was calledand patient was brought to the emergency department. She did not have any loss of consciousness, nausea or vomiting. Her nzkbjsqt-tq-ikc is here with her reports that she [...] History: Diagnosis Date Acute renal failure (ARF) ([facility]) Anemia Congestive heart failure (CHF) ([facility]) Depression Diverticulitis of large intestine without perforation or abscess without bleeding 12/14/2015 Diverticulitis of large intestine without perforation or abscess without bleeding MELLO (dyspnea on exertion) Essential (primary) hypertension 12/16/2012 Benign essential hypertension Hyperlipidemia, unspecified 12/16/2012 Hyperlipidemia Localized edema 09/07/2021 Lower extremity edema Malignant neoplasm of colon, unspecified ([facility]) Colon cancer Obstructive sleep apnea (adult) (pediatric) [...] Forrest Drew 11/29/2022 4:54 PM Dictation workstation: [id number] CT cervical spine wo IV contrast Final [...] Forrest Drew 11/29/2022 4:54 PM Dictation workstation: [id number] CT maxillofacial bones wo IV contrast Final [...] Forrest Drew 11/29/2022 4:54 PM Dictation workstation: [id number] Patient is reevaluated. GCS 15, awake and alert, no distress. Findings discussed with the patient. She require admission and she is agreeable with this. Dr. Leal contacted. He reviewed the images. The patient can stay here at [facility]. Repeat CT scan in 6 hours. Systolic blood pressure goal below 160. No Kcentra. Patient to be admitted to trauma surgery in the ICU. Contacted Dr. Bennett and report is given [facility] trauma HORACIO. Labs drawn per request. Florence Borges DO, PGY 3 Emergency Medicine Resident Amount and/or Complexity of Data Reviewed Radiology: ordered and independent interpretation performed. Procedure Procedures Florence Borges DO Resident 11/29/22 3510 Associated attestation - Corbin Bryan MD - [...] Nontoxic-appearing. Hemodynamically stable. Primary survey intact. Nursing place change roof bolter after initial evaluation. Unfortunately, was not communicated to oncoming nursing that the patient was a HIA with pending acute/life limb-threatening imaging. After this was relayed, patient was immediately taken to the CT scanner found to have a subdural hematoma. Discussed with neurosurgery. Discussed with trauma surgery. Will escalate care to hospitalization for further management. Neurosurgery not recommending reversal with Kcentra at this time. [facility] Work Phone: [phone] 436-171709-06-2023 History of Present illness Narrative* Alaina Ferrara [...] 1 week. JACKSON Epstein [facility] History of Present illness Narrative* Alaina Ferrara [...] 1 week. JACKSON Epstein [facility] History of Present illness Narrative* Alaina Ferrara AUD - 08/31/2022 9:45 AM EDT //[facility] August 31, 2022 Ingrid Donald [...] moderately severe sensorineural hearing loss bilaterally. Speech medical secretary receptionist thresholds agree with pure tone averaged. [...] ability Alaina Ferrara, JACKSON documented in [facility]04-28-2023 History of Present illness Narrative* Tori Roblero, HYDRO PLANT TECHNICIAN-PHYSICAL CHEMIST - 06/02/2022 10:30 AM EDT Subjective Patient ID: Ingrid Donald is a 86 y.o. female who presents for Follow-up (Hospital follow up /[facility] /Admission 04/21/22/Discharged 04/26/22/Final dx pneumonia//Per pt she's still not feeling verygood. /Records were requested. Have not yet received them. ). HPI Patient of Dr. Price here for hospital follow up- was in [facility], admitted 04/21/2022- 04/26/2022(?) diagnosis pneumonia and Diverticulitis. 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 Review of Systems Constitutional: Positive for fatigue. [...] complication, without long-term current use of insulin ([facility]) - Hemoglobin A1C; Future Iron deficiency - [...] x-ray-> call with results documented in [facility] Work Phone: [phone]) [phone] Instructions* Patient Instructions* VINNY Ruiz - 06/02/2022 10:30 AM EDT Chest x-ray today-> call with results Start steroid and antibiotic today documented in this [facility] Work Phone: [phone] History of Present illness Narrative* f/u anemia, ashd, dm, dep/anx, pa, ckd * doing ok * no bleeding * dr reynaga rescoping this month * gave 3 units prbcs * hgb 9.5 after first unit * feels better * edema better -[facility] Work Phone: [phone]) [phone] Evaluation note* Diagnosis Onset Date Resolution Status Aortic stenosis chronic Coronary artery disease coke drawer jill History of coronary artery stent placement June 23, 2 017 chronic Hyperlipemia chronic Hypertension chronic Paroxysmal atrial fibrillation [facility] Work Phone: Evaluation note* Diagnosis Iron deficiency- Primary Iron deficiency anemia, unspecified [facility]* Diagnosis Iron deficiency- Primary Iron deficiency anemia, unspecified [facility]* Diagnosis Iron deficiency- Primary Iron deficiency anemia, unspecified [facility]* Diagnosis Acute cough- Primary Upper respiratory tract infection, unspecified type Anemia, unspecified type Type 2 diabetes mellitus without complication, without long-term current use of insulin ([facility]) Iron deficiency Disorders of iron metabolism Vitamin B12 deficiency Other B-complex deficiencies Screening for thyroid disorder Vitamin D deficiency Hyperlipidemia, unspecified hyperlipidemia type documented in this encounter [facility] Work Phone: Evaluation note* Diagnosis ETD (Eustachian tube dysfunction), bilateral- Primary Sensorineural hearing loss (SNHL) of both ears documented [facility] encounter [facility]* Diagnosis Sensorineural hearing loss (SNHL) of both ears- Primary [facility]* Diagnosis Subdural hemorrhage ([facility])- Primary Subdural hemorrhage Subdural hemorrhage ([facility]) Subdural hemorrhage Fall, initial encounter documented in this encounter [facility] Work Phone: Evaluation note* Diagnosis Subdural hemorrhage ([facility])- Primary Subdural hemorrhage Nonsustained ventricular tachycardia ([facility]) Non-ST elevation (NSTEMI) myocardial infarction ([facility]) Type 2 diabetes mellitus without complication, without long-term current use of insulin ([facility]) Paroxysmal atrial fibrillation ([facility]) Atrial fibrillation Hypertension, unspecified type Class 2 severe obesity due to excess calories with serious comorbidity and body mass index (BMI) of 37.0 to 37.9 in adult ([facility]) Hyperlipidemia, unspecified hyperlipidemia type Stage 3a chronic kidney disease ([facility]) CKD (chronic kidney disease), stage II Chronic kidney disease, Stage II (mild) ASHD (arteriosclerotic heart disease) Coronary atherosclerosis of unspecified type of vessel, [place] or graft Acute non-ST elevation myocardial infarction (NSTEMI) ([facility]) documented in this encounter [facility] Work Phone: Evaluation note* Diagnosis SDH (subdural hematoma) ([facility])- Primary Subdural hemorrhage documented in this encounter [facility] Work Phone: Evaluation note* Diagnosis ACS (acute coronary syndrome) ([facility]) Intermediate coronary syndrome documented in this encounter [facility] Work Phone: Evaluation note* Diagnosis Routine general medical examination at health care facility- Primary Routine general medical examination at a health care facility Medicare annual wellness visit, subsequent Depression, unspecified depression type ASHD (arteriosclerotic heart disease) Coronary atherosclerosis of unspecified type of vessel, [place] or graft Type 2 diabetes mellitus without complication, without long-term current use of insulin (Multi) documented in this encounter [facility] Work Phone: Evaluation note* Diagnosis Primary osteoarthritis of both knees- Primary Primary localized osteoarthrosis, lower leg Type 2 diabetes mellitus without complication, without long-term current use of insulin (HCC) [facility]* Diagnosis ASHD (arteriosclerotic heart disease)- Primary Coronary atherosclerosis of unspecified type of vessel, [place] or graft Hyperlipidemia, unspecified hyperlipidemia type Type 2 diabetes mellitus without complication, without long-term current use of insulin (Multi) Hypertension, unspecified type Anemia, unspecified type CKD (chronic kidney disease), stage II Chronic kidney disease, Stage II (mild) documented in this encounter [facility] Work Phone: Evaluation note* Diagnosis Anemia, unspecified- Primary [facility]* Diagnosis Chronic pain of both knees documented in this encounter [facility] Work Phone: Evaluation note* Diagnosis Depression, unspecified depression type- Primary Chronic pain of both knees Type 2 diabetes mellitus without complication, without long-term current use of insulin (Multi) Hyperlipidemia, unspecified hyperlipidemia type Hypertension, unspecified type ASHD (arteriosclerotic heart disease) Coronary atherosclerosis of unspecified type of vessel, [place] or graft Anxiety Anxiety state, unspecified HFrEF (heart failure with reduced ejection fraction) (Multi) COPD exacerbation (Multi) Obstructive chronic bronchitis with exacerbation Paroxysmal atrial fibrillation (Multi) Atrial fibrillation documented in this encounter [facility] Work Phone: Evaluation noteNo assessment information available [facility] Work Phone: Evaluation note* Diagnosis Primary osteoarthritis of both knees- Primary Primary localized osteoarthrosis, lower leg Type 2 diabetes mellitus without complication, without long-term current use of insulin (HCC) Atrial fibrillation, unspecified type (HCC) documented [facility]* Diagnosis Routine general medical examination at health care facility- Primary Routine general medical examination at a health care facility Anemia, unspecified type documented in this encounter [facility] Work Phone: Evaluation note* Diagnosis Iron deficiency- Primary Iron deficiency anemia, unspecified [facility]* Diagnosis Anemia, unspecified type- Primary Essential hypertension Unspecified essential hypertension Other fatigue ASHD (arteriosclerotic heart disease) Coronary atherosclerosis of unspecified type of vessel, [place] or graft Heart failure, unspecified HF chronicity, unspecified heart failure type HFrEF (heart failure with reduced ejection fraction) Hypertensive heart and chronic kidney disease with heart failure and stage 1 through stage 4 chronic kidney disease, or unspecified chronic kidney disease Type 2 diabetes mellitus with stage 3a chronic kidney disease, without long-term current use of insulin (Multi) documented in this encounter [facility] Work Phone: Evaluation note* Diagnosis Onset Date Resolution Status Admit Date Paroxysmal atrial fibrillation chron ic September 29, 2024 1:49pm [facility] Work Phone: Evaluation note* Diagnosis Anemia, unspecified type- Primary ASHD (arteriosclerotic heart disease) Coronary atherosclerosis of unspecified type of vessel, [place] or graft Type 2 diabetes mellitus without complication, without long-term current use of insulin Stage 3a chronic kidney disease (Multi) Anxiety Anxiety state, unspecified Hypertension, unspecified type Gastroesophageal reflux disease without esophagitis Esophageal reflux Status post coronary artery stent placement Postsurgical percutaneous transluminal coronary angioplasty status Dyslipidemia Other and unspecified hyperlipidemia Traumatic subdural hemorrhage without loss of consciousness, initial encounter (Multi) Class 2 severe obesity due to excess calories with serious comorbidity and body mass index (BMI) of 37.0 to 37.9 in adult Chronic kidney disease, stage 3b (Multi) documented in this encounter [facility] Work Phone: History of Present illness Narrative* getting pharm stress due to exertional fatigue * some sob * no bleeding or black stool, palps * f/u dep, dm, htn, nsvit, ashd, anx, gerd * dep and anxiety ok * no gerd -[facility]- Work Phone: History of Present illness Narrative* epigastric pain * famotidine helped 50% * worse w/ deep breaths * nausea w/ supper * back is better * f/u ashd, dm, dep/anx, htn, hyperlipidemia, pa, ckd [facility] Work Phone: History of Present illness Narrative* f/u dm, htn, hyperlipidemia, testing * feels pretty well now [facility] Work Phone: History of Present illness [...] Maintenance: performs independently. * Falls Risk Screening:. ERONDITA has not fallen in the last 6 months. * Home safety risk factors: none. * problems w/ stress * not doing that well * water damage in one house * air conditioner out in [place] * crying a lot * leg and foot pain * r > left * no trauma * a little swelling * f/u dm, hyperlipidemia, dep, htn [facility] Work Phone: History of Present illness Narrative* leg swelling * pain in r foot w/ walking/standing long periods * us neg x r bond's cyst * xrays remarkable for foot oa * edema very troubling to pt [facility] Work Phone: History of Present illness Narrative* edema * not better * some mello * no cp * not eating salt * weight up * f/u ckd, htn, hyperlipidemia, ashd [facility] Work Phone: History of Present illness Narrative* f/u edema, anx, dep, abnormal cr, anemia * edema better * less upset * no bleeding or black stool [facility] Work Phone: Hospital Discharge instructionsAdditional Instructions Thank you for trusting us with your care today! The test on your heart showed no sign of damage. Please return to the emergency department if your symptoms change or worsen. Please follow with your Primary Care Physician and/or Cardiology for further outpatient evaluation and management.[facility] Work Phone: Reason for referral (narrative)* Diagnostic Procedure Only (Routine) - New Request Specialty Diagnoses / Procedures Referred By Diana dominguez Referred To Contact XR IMAGING Diagnoses Primary osteoarthritis of both knees Procedures XR KNEE 3V FLEX/LAT/MERCH LEFT (AK) RADIOLOGIC EXAMINATION KNEE 3 VIEWS Mark Vazquez MD [address] [place] [address] [place] [address] Referral ID Status Reason Start Date Expiration Date Visits Requested Visits Authorized [id number] New Request Auto-Generat ed Referral 11/13/2023 12/12/2024 1 1 * Diagnostic Procedure Only (Routine) - New Request Specialty Diagnoses / Procedures Referred By Diana dominguez Referred To Contact XR IMAGING Diagnoses Primary osteoarthritis of both knees Procedures XR KNEE 3V FLEX/LAT/MERCH RIGHT (AK) Mark Vazquez MD [address] [place] [address] [place] [address] Referral ID Status Reason Start Date Expiration Date Visits Requested Visits Authorized [id number] New Request Auto-Generat ed Referral 11/13/2023 12/12/[address] [facility] for referral (narrative)No reason for referral information availableWReg[facility] Work Phone: Reason for visit Narrative* Consult, Test, Treat (Routine) - New Request Specialty Diagnoses / Procedures Referred By Contact Referred To Contact Hematology / [facility] Diagnoses 2 unit rbc, anemia, mabee(RK) Procedures INFUSION 2.5 HRS [facility] [address] [place] [address] Phone: tel: Infusion Center [address] [place] [address] Phone: tel: Referral ID Status Reason Start Date Expiration Date Visits Requested Visits Authorized [id number] New Request Patient Cleared - Admin/Chair man/Directo r advise to proceed or did not respond 08/25/2024 11/23/2024 1 1 [facility] Summary Purpose Family History No Family History [...] 2019 11:20am Living Will No October 05 0 11:20am Power of Strip Feeder No October 05, 020 11:20am Latest Code Status on File [...] Do you have a Healthcare Power of Strip Feeder? Yes August 17, 2024 8:06pm Advance Directives No October 06, 2019 12:20pm Advance Directive Response Recorded Date/ Time Do you have a Healthcare Power of Strip Feeder? Yes August 17, 2024 8:06pm Do you have a Healthcare Power of Strip Feeder? Yes August 18, 2024 3:32pm Name of Medical Power of Strip Feeder DAUGHTER August 18, 2024 3:32pm Advance Directives [...] Procedures XR chest 2 views Tori Roblero, HYDRO PLANT TECHNICIAN-PHYSICAL CHEMIST [address] [facility] [place] [address] Referral ID Status Reason Start Date Expiration Date Visits Requested Visits Authorized [id number] Authorized Perform Procedure 06/02/2022 11/29/2022 1 1 Specialty Diagnoses / Procedures Referred By Contac t Referred To Contact Diagnoses ETD (Eustachian tube dysfunction), bilateral Procedures HEARING TEST/AUDIOGRAM COMPRE AUDIOMETRY THRESHOLD EVAL SP NIESHAIJ Diane Cronin DO [address] [place] [address] [facility] [address] [place] [address] Referral ID Status Reason Start Date Expiration Date V isits Requested Visits Authorized [id number] Closed Auto-Generate d Referral 08/23/2022 11/21/2022 1 1 Specialty Diagnoses / Procedures Referred By Contac t Referred To Contact Diagnoses ACS (acute coronary syndrome) (CMS/HCC) Procedures ECG 12 lead Corbin Bryan MD [address] [facility] [address] [place] [address] Referral ID Status Reason Start Date Expiration Date V isits Requested Visits Authorized [id number] Pending Review 12/26/2022 12/26/2023 1 1 Specialty Diagnoses / Procedures Referred By Contac t Referred To Contact Diagnoses Routine general medical examination at health care facility Procedures ECG 12 lead (Clinic Performed) Eitan Price MD [address] [facility] [place] [address] Referral ID Status Reason Start Date Expiration Date V isits Requested Visits Authorized [id number] Authorized 06/26/2023 06/25/2024 1 1 Specialty Diagnoses / Procedures Referred By Contac t Referred To Contact Radiology Diagnoses Chronic pain of both knees Procedures XR knees anteroposterior standing bilateral Eitan Price MD [address] [facility] [place] [address] Referral ID Status Reason Start Date Expiration Date Visits Requested Visits Authorized [id number] Authorized Perform Procedure 10/03/2023 10/02/2024 1 1 [...] Abn labs August 18, 2024 2:27 pm Chief Complaint Admit Date chest pain August 17, 2024 7:42 pm Abn labs August 18, 2024 2:27 pm SURGICAL CLEARANCE September 29, 2024 1: 49pm Reason for Visit Admit Date Paroxysmal atrial fibrillation September 292024 1:49pm Additional Source Comments INFORMATION SOURCE (unrecogn ized section and content) DATE CREATED AUTHOR 08/18/2018 [email or web address] DATE CREATED AUTHOR AUTHOR'S ORGANIZ ATION 12/15/2021 [employer] DATE CREATED AUTHOR AUTHOR'S ORGANIZ ATION 01/14/2022 [employer] [facility] DATE CREATED AUTHOR AUTHOR'S ORGANIZ ATION 10/09/2022 [facility] DATE CREATED AUTHOR AUTHOR'S ORGANIZ ATION 02/15/2023 [facility] DATE CREATED AUTHOR AUTHOR'S ORGANIZ ATION 10/10/2023 [facility] DATE CREATED AUTHOR AUTHOR'S ORGANIZ ATION 10/15/2023 [facility] DATE CREATED AUTHOR AUTHOR'S ORGANIZ ATION 08/22/2024 [facility] DATE CREATED AUTHOR AUTHOR'S ORGANIZ ATION 08/27/[address] [facility] DATE CREATED AUTHOR AUTHOR'S ORGANIZ ATION 10/01/2024 [facility] DATE CREATED AUTHOR AUTHOR'S ORGANIZ ATION 10/05/2024 [facility] DATE CREATED AUTHOR AUTHOR'S ORGANIZ ATION 10/08/2024 [facility] DATE CREATED AUTHOR AUTHOR'S ORGANIZ ATION 10/11/2024 [facility] Source Comments (unrecognize d section and content) In the event this informatio n is protected by the Federal Confidentiality of Alcohol and Drug Abuse Patient Records regulations: The Federal rules restrict any use of the information to criminally investigate or prosecute any alcohol or drug abuse patient.[facility] the event this information is protected by the Federal Confidentiality of Alcohol and Drug Abuse Patient Records regulations: The Federal rules restrict any use of the information to criminally investigate or prosecute any alcohol or drug abuse patient.[facility] Center[facility] the event this information is protected by the Federal Confidentiality of Alcohol and Drug Abuse Patient Records regulations: The Federal rules restrict any use of the information to criminally investigate or prosecute any alcohol or drug abuse patient.[facility] Center[facility] the event this information is protected by the Federal Confidentiality of Alcohol and Drug Abuse Patient Records regulations: The Federal rules restrict any use of the information to criminally investigate or prosecute any alcohol or drug abuse patient.[facility] Center[facility] the event this information is protected by the Federal Confidentiality of Alcohol and Drug Abuse Patient Records regulations: The Federal rules restrict any use of the information to criminally investigate or prosecute any alcohol or drug abuse patient.[facility] Center[facility] the event this information is protected by the Federal Confidentiality of Alcohol and Drug Abuse Patient Records regulations: The Federal rules restrict any use of the information to criminally investigate or prosecute any alcohol or drug abuse patient.[facility] Center[facility] the event this information is protected by the Federal Confidentiality of Alcohol and Drug Abuse Patient Records regulations: The Federal rules restrict any use of the information to criminally investigate or prosecute any alcohol or drug abuse patient.[facility] Center[facility] the event this information is protected by the Federal Confidentiality of Alcohol and Drug Abuse Patient Records regulations: The Federal rules restrict any use of the information to criminally investigate or prosecute any alcohol or drug abuse patient.[facility] Center[facility] the event this information is protected by the Federal Confidentiality of Alcohol and Drug Abuse Patient Records regulations: The Federal rules restrict any use of the information to criminally investigate or prosecute any alcohol or drug abuse patient.[facility] Center[facility] the event this information is protected by the Federal Confidentiality of Alcohol and Drug Abuse Patient Records regulations: The Federal rules restrict any use of the information to criminally investigate or prosecute any alcohol or drug abuse patient.[facility] Center[facility] the event this information is protected by the Federal Confidentiality of Alcohol and Drug Abuse Patient Records regulations: The Federal rules restrict any use of the information to criminally investigate or prosecute any alcohol or drug abuse patient.[facility] Center[facility] the event this information is protected by the Federal Confidentiality of Alcohol and Drug Abuse Patient Records regulations: The Federal rules restrict any use of the information to criminally investigate or prosecute any alcohol or drug abuse patient.[facility] Center[facility] the event this information is protected by the Federal Confidentiality of Alcohol and Drug Abuse Patient Records regulations: The Federal rules restrict any use of the information to criminally investigate or prosecute any alcohol or drug abuse patient.[facility] Center[facility] the event this information is protected by the Federal Confidentiality of Alcohol and Drug Abuse Patient Records regulations: The Federal rules restrict any use of the information to criminally investigate or prosecute any alcohol or drug abuse patient.[facility] Reason for Visit (unrecogniz ed section and content) Specialty Diagnoses / Procedures Referred By Contac t Referred To Contact Diagnoses Iron deficiency Procedures IRON SUCROSE INJECTION PER 1 MG Jose Reynaga MD [facility] [address] [place] [address] Infusion [facility] [place] [address] [place] [address] Referral ID Status Reason Start Date Expiration Date V isits Requested Visits Authorized [id number] Authorized 12/01/2021 02/04/2022 99 99 Reason Comments [...] AUDIOMETRY THRESHOLD EVAL SP RECOGNIJ Diane Cronin, DO [address] [place] [address] [facility] [address] [place] [address] Referral ID Status Reason Start Date Expiration Date V isits Requested Visits Authorized [id number] Closed Auto-Generate d Referral 08/23/2022 11/21/2022 1 1 Reason Comments Hearing Loss Reason Comments Follow Up Reason Comments Fall Specialty Diagnoses / Procedures Referred By Contac t Referred To Contact Diagnoses Subdural hemorrhage (CMS/HCC) Procedures INPT Sintia Hernandez PA-C [address] [place] [address] [address] [place] [address] Referral ID Status Reason Start Date Expiration Date Visits Re quested Visits Authorized [id number] 1 1 Reason Comments Follow-up Reason Comments New Patient Visit Pt is a new visit. P t is a status post fall 11/29/22. Pt denies pain. Specialty Diagnoses / Procedures Referred By Contac t Referred To Contact Diagnoses ACS (acute coronary syndrome) ([facility]/HCC) Procedures ECG 12 lead Corbin Bryan MD [address] [place] [address] Referral ID Status Reason Start Date Expiration Date V isits Requested Visits Authorized [id number] Pending Review 12/26/2022 12/26/2023 1 1 Reason Comments Medicare Annual Wellness Visit Subsequen t Reason Comments New Specialty Diagnoses / Procedures Referred By Contac t Referred To Contact Radiology Diagnoses Chronic pain of both knees Procedures XR knees anteroposterior standing bilateral Eitan Price MD [address] [facility] [place] [address] Referral ID Status Reason Start Date Expiration Date Visits Requested Visits Authorized [id number] Authorized Perform Procedure 10/03/2023 10/02/2024 1 1 Reason Comments Follow-up Reason Comments Established Patient Knee Pain Swelling Reason Comments Follow-up Amlodipine and Losar thomas needs refilled. Care Teams (unrecognized sec tion and content) Non Garment Sewing Machine Operator Relationship Specialty Start Date End Date Eitan Price MD [address] [place], [place] [id number] PCP - General Internal Medicine 08/14/18 Non Garment Sewing Machine Operator Relationship Specialty Start Date End Date Eitan Price MD [address] [facility] [place] [place] [address] PCP - General Internal Medicine 08/14/18 Non Garment Sewing Machine Operator Relationship Specialty Start Date End Date Eitan Price MD [address] [place] [address] PCP - General Internal Medicine 08/14/18 Non Garment Sewing Machine Operator Relationship Specialty Start Date End Date Eitan Price MD [address] [facility] [place], [place] [address] PCP - General 06/09/14 Eitan Price MD [address] [facility] [place] [address] PCP - [employer]age PCP 02/05/22 Non Garment Sewing Machine Operator Relationship Specialty Start Date End Date Eitan Price MD [address] [place] [address] PCP - General Internal Medicine 08/14/18 Non Garment Sewing Machine Operator Relationship Specialty Start Date End Date Eitan Price MD [address] [place] [address] PCP - General Internal Medicine 08/14/18 Non Garment Sewing Machine Operator Relationship Specialty Start Date End Date Eitan Price MD [address] [facility] [place] [address] PCP - General 06/09/14 Eitan Price MD [address] [facility] [place] [address] PCP - [place] [employer]age PCP 02/05/22 [...] MD Attending Provider, Referring Pr ovider Active Non Garment Sewing Machine Operator Relationship Specialty Start Date End Date Eitan Price MD [address] [facility] [place] [address] PCP - General 06/09/14 Eitan Price MD [address] [facility] [place] [address] PCP - [employer]age PCP 02/05/22 Chana Dave, sanitary engineering teacherHand Stapler 12/04/22 Non Garment Sewing Machine Operator Relationship Specialty Start Date End Date Eitan Price MD [address] [facility] [place] [address] PCP - General 06/09/14 Eitan Price MD [address] [facility] [place] [address] PCP - [employer]age PCP 02/05/22 Chana Dave, sanitary engineering teacherHand Stapler 12/04/22 Non Garment Sewing Machine Operator Relationship Specialty Start Date End Date Eitan Price MD [address] [facility] [place] [address] PCP - General 06/09/14 Eitan Price MD [address] [facility] [place] [address] PCP - [employer]age PCP 02/05/22 Non Garment Sewing Machine Operator Relationship Specialty Start Date End Date Eitan Price MD [address] [facility] [place] [address] PCP - General 06/09/14 Eitan Price MD [address] [facility] [place] [address] PCP - [employer]age PCP 02/05/22 Non Garment Sewing Machine Operator Relationship Specialty Start Date End Date Eitan Price MD [address] [facility] [place] [address] PCP - General Internal Medicine 08/14/18 Non Garment Sewing Machine Operator Relationship Specialty Start Date End Date Eitan Price MD [address] [facility] [place] [address] PCP - General 06/09/14 Non Garment Sewing Machine Operator Relationship Specialty Start Date End Date Eitan Price MD [address] [facility] [place] [address] PCP - General 07/13/14 Non Garment Sewing Machine Operator Relationship Specialty Start Date End Date Eitan Price MD [address] [facility] [place] [address] PCP - General 06/09/14 Non Garment Sewing Machine Operator Relationship Specialty Start Date End Date Eitan Price MD [address] [facility] [place] [address] PCP - General 06/09/14 Team Status: Active [...] August 18, 2024 End: August 18, 2024 Non Garment Sewing Machine Operator Relationship Specialty Start Date End Date Eitan Price MD [address] [facility] [place] [address] PCP - General Internal Medicine 08/14/18 Non Garment Sewing Machine Operator Relationship Specialty Start Date End Date Eitan Price MD [address] [facility] [place] [address] PCP - General 06/09/14 Non Garment Sewing Machine Operator Relationship Specialty Start Date End Date Eitan Price MD [address] [facility] [place] [address] PCP - General Internal Medicine 08/14/18 Non Garment Sewing Machine Operator Relationship Specialty Start Date End Date Eitan Price MD [address] [facility] [place] [address] PCP - General 06/09/14 Team Status: Inactive Member Role/Relationship Status Dates Dr. Eitan Price MD Primary Care Provider Active Start: August 17, 2024 End: August 18, 2024 Dr. Shakeel Rehman DO Attending Provider Active Start: August 17, 2024 End: August 18, 2024 Dr. Shakeel Rehman DO Emergency Provider Active Start: August 17, 2024 End: August 18, 2024 Team Status: Inactive Member Role/Relationship Status Dates Dr. Eitan Price MD Primary Care Provider Active Start: August 18, 2024 End: August 18, 2024 Kal Fan MD Attending Provider Active Star t: August 18, 2024 End: August 18, 2024 Kal Fan MD Emergency Provider Active Star t: August 18, 2024 End: August 18, 2024 Team Status: Inactive Member Role/Relationship Status Dates Dr. Eitan Price MD Primary Care Provider Active Start: September 29, 2024 End: September 29, 2024 Dr. Eitan Price MD Referring Provider Active S tart: September 29, 2024 End: September 29, 2024 ROBBIE Canchola Attending Provider Active St art: September 29, 2024 End: September 29, 2024 Non Garment Sewing Machine Operator Relationship Specialty Start Date End Date Eitan Price MD [address] [facility] [place] [address] PCP - General 06/09/14 Scheduled Active and [...] Jean, RN)1330 (Given - Provider: Amira Richter, RN)2125 (Given - Provider: Los Jean, MAYRA) 0812 (Given - Provider: Amira Richter, MAYRA)1400 [...] 0812 (Given - Provider: Amira Richter RN) buPROPion XL (Wellbutrin XL) 24 hr [...] 1755 0900 (Not Given - Provider: Amira iRchter RN - Reason: Other) 0900 (Not Given - Provider: Elizabeth Suarez RN - Reason: See Provider Order) 0900 (Not Given - Provider: Amira Richter RN - Reason: Other) losartan (Cozaar) tablet 100 mg 100 mg, oral, Daily, First dose on Sun11/30/22 at 0900 0807 (Given - Provider: Amira iRchter RN) 1053 (Given - Provider: Elizabeth Suarez [...] BE BASED ON THE PRIMARY CLINICAL RECORDS. [facility]. provides no warranty or guarantee of the accuracy or completeness of information in this document.
--- NOTE | 2024-10-13 09:16 | STRESSREP ---
Stress Test Report Date: 10/13/2024 Procedure: Pharmacologic stress nuclear imaging study Indications: Coronary artery disease Consent: Per the patient Procedure: The patient underwent pharmacologic (Regadenoson 0.4mg ) evaluation with a peak heart rate of 98 beats per minute (74%predicted maximal heart rate) and a peak blood pressure of 124/78 mmHg. The baseline ECG demonstrated atrial fibrillation. The peak pharmacologic ECG did not show any diagnostic ischemic changes. Baseline atrial fibrillation. There was no complaint of chest discomfort during pharmacologic infusion or recovery. The patient was injected with 14.1 millicuries of technetium 99m Cardiolite and subsequently rest SPECT Cardiolite nuclear imaging was obtained in the horizontal long, vertical long, and short axis views. The patient underwent pharmacologic (Regadenoson) evaluation. The patient was injected with 43.6 millicuries of technetium 99m Cardiolite and subsequently stress SPECT Cardiolite nuclear imaging was obtained in the horizontal long, vertical long, and short axis views. A gated Cardiolite study at peak stress was obtained. The examination was stopped secondary to completion of protocol. Rest and stress SPECT Cardiolite nuclear imaging status post realignment, normalization, and attenuation correction demonstrate mildly reduced perfusion of the anterior wall post pharmacological stress consistent with mild ischemia of the anterior wall. There is end systolic thickening and brightening. The gated Cardiolite study demonstrates myocardial thickening and inward wall motion. The reported LVEF is 78%. Impression: 1. Pharmacologic (Regadenoson) evaluation 2. Peak pharmacologic ECG with no diagnostic ischemic changes. 3. Baseline atrial fibrillation. 5. Mildly reduced perfusion of the anterior wall post pharmacological stress, suggestive of mild anterior reversible ischemia. 6. The gated Cardiolite study reports an LVEF of 78%. This note was generated with [employer] software. It may contain incorrect words, spelling, and punctuation that were not noted in checking the note before signing.
== END | disposition home or self-care (01) ==
PROVIDERS: PCP Internal Medicine; Referring Provider Student in an Organized Health Care Education/Training Program; Visit Provider Student in an Organized Health Care Education/Training Program
DX: Z01.810 Encounter for preprocedural cardiovascular examination (principal); I25.119 Atherosclerotic heart disease of native coronary artery with unspecified angina pectoris; R06.00 Dyspnea, unspecified
CPT/HCPCS: 78452; 93017; A9500; A4216; J2785